=== PATIENT | male | born 1970 | race Caucasian/White ===

== ENCOUNTER → 2016-10-06 | Outpatient (CLI) | payer MEDICAID ==
[~2016-10-06] MED LIST: ALLOPURINOL100 MG PO; ASPIRIN 81MG TA81 MG PO; ATENOLOL25 MG PO; BACTRIM DS 8001 TAB PO; CIPRO 500MG TA500 MG PO; CYCLOBENZAPRINE10 M2 PO; ESCITALOPRAM 2020 MG PO; FLAGYL 500MG.500 MG PO; GEMFIBROZIL600 M1 PO; GEMFIBROZIL600 MG PO; INDOMETHACIN50 MG PO; KLONOPIN0.5 M1 PO; LEVOFLOXACIN 5500 MG PO; LOPID 600MG TA600 MG OR; LOPID600 MG OR; LORTAB 5/500 501 TAB PO; METFORMIN 500M500 M1 PO; METFORMIN500 MG PO; MIRALAX17 GM/PACK PO; MOTRIN600 M1 PO; NICOTINE PATCH;21 MG TD; PERCOCET 10 MG1 EACH PO; PHENERGAN25 M3 PO; PRAVACHOL40 MG PO; PREDNISONE 20MG20 MG PO; PREDNISONE 5MG.5 MG PO; PREDNISONE20 MG PO; PRILOSEC OTC20 MG PO; PRILOSEC20 M1 PO; PRILOSEC20 MG PO; TESSALON PERLE100 MG PO; TYLENOL W/CODEI1 TA2 PO; ZITHROMAX Z-PA250 M2 PO; ZOFRAN ODT4 MG PO
[2016-10-06 13:57] LABS: AMPHETAMINES/METAMPHETAMINES NEGATIVE ng/mL (<1000)
== END ==
LOC: LAB 13:36
PROVIDERS: Emergency Medicine
DX: Z79.899 Other long term (current) drug therapy (principal)

== ENCOUNTER 2017-04-25 17:14 | Emergency (ER) | payer MEDICARE, MEDICAID ==
[~2017-04-25] VITALS: Ht 182.9 cm; Wt 117.5 kg
[~2017-04-25 17:14] MED LIST changes: +FLONASE 50 MCG16 GM; +GABAPENTIN100 M1 PO; +LOSARTAN POTASS50 MG PO; +ONETOUCH LANCE1 EACH; +PROBIOTIC1 EAC5
[2017-04-25 17:51] LABS: HEMOGLOBIN 15.1 g/dL (14.1-18.0); LYMPH # 3.4 K/mm3 (0.7-4.5); LYMPH % 37.4 % (10-50)
--- OUTSIDE RECORDS SUMMARY | 2017-04-25 17:51 | External Medical Summary Rpt ---
Author Author , VITO PADRON Address Unknown Phone [email or web address] Care Team Providers Care Rural Mail Carrier Name Role Phone ALFARIS MOH, ALFARIS Unavailable Unavailable MOH WILL BRO, WILL Unavailable Unavailable BRO BEINEKE, BEINEKE Unavailable Unavailable ROGER, ROGER Unavailable Unavailable ROGER ALL, ROGER ALL Unavailable Unavailable DANNI AYAH, DANNI Unavailable Unavailable AYAH DANNI AYAH, DANNI Unavailable Unavailable AYAH DANA SHELIA, Unavailable Unavailable DANA SHELIA DANA SHELIA, Unavailable Unavailable DANA SHELIA SMITH, SMITH Unavailable Unavailable SMITH PHI, Unavailable Unavailable SMITH PHI Elias Sanchez MD, Unavailable Unavailable Elias Sharma MD, Unavailable Unavailable Feliciano Sharma MD FARHAD, FARHAD Unavailable Unavailable FARHAD JASMYNE, FARHAD Unavailable Unavailable JASMYNE [facility] Unavailable Unavailable INC, [facility] Unavailable Unavailable HOSPITAL P, [facility] P [facility], Unavailable Unavailable [facility] WHIPPLE, WHIPPLE Unavailable Unavailable JABARI NAN, JABARI Unavailable Unavailable NAN FRANCIS IMT, FRANCIS Unavailable Unavailable IMT [facility] Unavailable Unavailable [facility], [facility] Ninoska Bronson MD, Unavailable Unavailable Ninoska Bronson MD HARSHAD RANDALL, HARSHAD RANDALL Unavailable Unavailable HARSHAD RANDALL, HARSHAD RANDALL Unavailable Unavailable [facility] Unavailable Unavailable U[facility]ENT TRE[facility], [facility], Unavailable Unavailable [facility] Un[facility]available [facility], [facility], Unavailable Unavailable [facility], Unavailable Unavailable [facility] SRINIVAS TOD, SRINIVAS TOD Unavailable Unavailable ZENAIDA RANDALL, ZENAIDA RANDALL Unavailable Unavailable ZENAIDA RANDALL, ZENAIDA RANDALL Unavailable Unavailable [facility] Unavailable Unavailable [facility], [facility] Unavailable Unavailable [facility] Unavailable Unavailable EMERGENCY PH[facility], [facility] Javier Fields MD, Unavailable Unavailable Javier Fields MD [facility] # Unavailable Unavailable [id number], [facility] # [id number] Cornel Ramirez Unavailable Unavailable CARMINA PIEDRA, Cornel Ramirez III, MD Purpose Continuity of Care Document - 12-24-2012 through 2016 Problems Code Diagnosis DOS Provider Status C649 MALIGNANT 02-06-2017 [facility] UNS KIDNEY IMAGING ASS EXCEPT RENL PELVIS K5730 DIVERTICULO 02-06-2017 [place] SIS LG MEDICAL INTEST W/O IMAGING ASS PERF/ABSC W/O BLEED R590 LOCALIZED 02-06-2017 [facility] ENLARGED MEDICAL LYMPH NODES IMAGING ASS R911 SOLITARY 02-06-2017 [facility] PULMONARY MEDICAL NODULE IMAGING ASS E119 TYPE 2 02-03-2017 [facility] DIABETES PHYSICIANS MELLITUS GROUP WITHOUT COMPLICATIO NS I10 ESSENTIAL 02-03-2017 [facility] PRIMARY PHYSICIANS HYPERTENSIO GROUP N M10180 OTHER LONG 02-03-2017 [facility] TERM PHYSICIANS CURRENT GROUP DRUG THERAPY G4733 OBSTRUCTIVE 01-19-[address] [facility] SLEEP HOME APNEA ADULT MEDICAL PEDIATRIC EQUIPME J40 BRONCHITIS 10-06-2016 [facility] NOT PHYSICIANS SPECIFIED GROUP ACUTE OR CHRONIC C7989 SECONDARY 09-22-2016 [facility] NEOPLASM INC OTH SPECIFIED SITES E118 TYPE 2 09-22-2016 [facility] DIABETES PHYSICIANS MELLITUS GROUP W/UNS COMPLICATIO NS E871 HYPO-OSMOLA 09-22-2016 [facility] LITY AND PHYSICIANS HYPONATREMI GROUP A K8590 ACUTE 09-22-2016 [facility] PANCREATITI PHYSICIANS S WO GROUP NECROSIS/IN FECTION UNSPEC Z720 TOBACCO USE 09-22-2016 [facility] C641 MALIGNANT 09-21-2016 [facility] RT PHYSICIANS, KIDNEY PLLC EXCEPT RENAL PELVIS K8580 OTHER ACUTE 09-21-2016 [facility], PANCREATITI PLLC S WO NECROSIS/IN FECTION R1032 LEFT LOWER 09-21-2016 [place] QU[facility]RANT [facility] PAIN IMAGING ASS R109 UNSPECIFIED 09-21-2016 [place] ABDOMINAL MEDICAL PAIN IMAGING ASS R110 NAUSEA 09-21-2016 [facility] V56912 PERSONAL 09-21-2016 [place] HISTORY MEDICAL OTHER IMAGING ASS MALIGNANT NEOPLASM KIDNEY K5731 DIVERTICULO 09-03-2016 [facility] LG PHYSICIANS, INTEST W/O PLLC PERF/ABSC W/BLEED R1031 RIGHT LOWER 09-03-2016 [facility] PAIN [facility] G4713 RECURRENT 08-27-2016 [facility] HYPERSOMNIA PHYSICIANS GROUP J984 OTHER 08-27-2016 [facility] DISORDERS PHYSICIANS OF LUNG GROUP H527 UNSPECIFIED 07-28-2016 [facility] DISORDER OF REFRACTION Z23 ENCOUNTER 06-16-2016 [facility] FOR PHYSICIANS IMMUNIZATIO GROUP N M546 PAIN IN 05-13-2016 [facility] THORACIC [facility] SPINE IMAGING ASS Z905 ACQUIRED 05-13-2016 [place] ABSENCE OF MEDICAL KIDNEY IMAGING ASS G4730 SLEEP APNEA 04-30-2016 [facility] PHYSICIANS UNSPECIFIED GROUP M7711 LATERAL 04-30-2016 [facility] EPICONDYLIT PHYSICIANS IS RIGHT GROUP ELBOW E875 HYPERKALEMI 04-24-2016 [facility] A PHYSICIANS GROUP 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 [place] ADRENAL MEDICAL GLAND IMAGING ASS UNSPECIFIED 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 [place] 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 E785 HYPERLIPIDE 03-18-2016 [facility] KEYON PHYSICIANS UNSPECIFIED GROUP C7800 SECONDARY 02-18-2016 [place] MALIGNANT [facility] NEOPLASM OF HOSPITAL P UNSPECIFIED LUNG C7970 SECONDARY 02-18-2016 [facility] NEOPLASM HOSPITAL P UNS ADRENAL GLAND J302 OTHER 02-18-2016 [facility] SEASONAL PHYSICIANS ALLERGIC GROUP RHINITIS R918 OTHER 02-14-2016 [place] NONSPECIFIC MEDICAL ABNORMAL IMAGING ASS FINDING OF LUNG FIELD R739 HYPERGLYCEM 10-19-2015 [facility] IA PHYSICIANS UNSPECIFIED GROUP Z5111 ENCOUNTER 10-10-2015 [facility] P TIC CHEMOTHERAP Y Z5181 ENCOUNTER 08-22-2015 [facility] THERAPEUTIC [facility] DRUG LEVEL MONITORING N281 CYST OF 06-29-2015 [place] KIDNEY MEDICAL ACQUIRED IMAGING ASS K86310 SUPERVISOR PRE WAVE 06-14-2015 [facility] CURRENT USE PHYSICIANS OF OPIATE GROUP ANALGESIC 1890 MALIGNANT 06-04-[address] [place] [address] [facility] KIDNEY INC EXCEPT PELVIS V5811 ENCOUNTER 06-04-2015 [facility] ANTINEOPLAS [facility] TIC CHEMOTHERAP Y V5869 LONG-TERM 05-15-2015 [facility] (CURRENT) PHYSICIANS USE OF GROUP OTHER MEDICATIONS 76916 OVERWEIGHT 04-23-2015 [facility] PHYSICIANS GROUP 4019 UNSPECIFIED 04-23-2015 [facility] ESSENTIAL PHYSICIANS HYPERTENSIO GROUP N 94043 DIVERTICULI 04-23-2015 [facility] TIS OF PHYSICIANS COLON GROUP 23284 DIVERTICULI 04-11-2015 [facility] TIS OF PHYSICIANS COLON WITH GROUP HEMORRHAGE 75309 ABDOMINAL 04-11-2015 [facility] PAIN, LEFT PHYSICIANS LOWER GROUP QUADRANT 98574 ABDOMINAL 04-11-2015 [facility] PAIN, PHYSICIANS PERIUMBILIC GROUP 61689 ABDOMINAL 04-11-2015 [facility] PAIN OTHER PHYSICIANS SPECIFIED GROUP SITE V1052 PERSONAL 04-11-2015 [facility] HISTORY OF PHYSICIANS MALIGNANT GROUP NEOPLASM OF KIDNEY 2559 UNSPECIFIED 04-06-2015 [place] DISORDER MEDICAL OF ADRENAL IMAGING ASS GLANDS 5180 PULMONARY 04-06-2015 [facility] COLLAPSE [facility]ICAL IM[facility]ING ASS 36894 UNSPEC 04-06-2015 [place] VENTRAL MEDICAL LUIS W/O IMAGING ASS MENTION OBST/GANGRE N 7856 ENLARGEMENT 04-06-2015 [place] OF LYMPH MEDICAL NODES IMAGING ASS 53327 ABDOMINAL 04-06-2015 [facility] PAIN, [facility] UNSPECIFIED INC SITE 71405 OTHER 04-06-2015 [place] NONSPECIFIC MEDICAL ABNORMAL IMAGING ASS FINDING OF LUNG FIELD 2724 OTHER AND 03-23-2015 [facility] UNSPECIFIED PHYSICIANS GROUP HYPERLIPIDE KEYON V4573 ACQUIRED 02-28-2015 [place] ABSENCE OF MEDICAL KIDNEY IMAGING ASS 2357 NEOPLASM 02-07-2015 [facility] P [facility]ACH BRONCHUS&STEFANI NG 7231 CERVICALGIA 01-25-2015 [facility] 7245 UNSPECIFIED 01-25-2015 [place] BACKACHE MEDICAL IMAGING ASS 22349 DIVERTICULO 01-24-2015 [facility] COL[facility] URGENT T[facility]AT 5770 ACUTE 01-24-2015 [facility] PANCREATITI [facility] URGENT TREAT 7242 LUMBAGO 01-24-2015 [facility] URGENT TREAT 83220 LEUKOCYTOSI 01-10-2015 [facility] S PHYSICIANS UNSPECIFIED GROUP 4011 ESSENTIAL 01-10-2015 [facility] HYPERTENSIO PHYSICIANS N, BENIGN GROUP 30897 COR 01-10-2015 [facility] ATHEROSLERO PHYSICIANS UNSPEC GROUP TYPE VESSEL [place]/NONA T 7880 RENAL COLIC 01-09-2015 [facility] 7881 DYSURIA 01-09-2015 [facility] 79962 SOLITARY 01-09-2015 [facility] PULMONARY [facility] NODULE INC 4739 UNSPECIFIED 07-18-2014 [facility] SIN[facility] N EMERGENCY PHYS 47417 PAIN IN 07-18-2014 [facility] JOINT, N EMERGENCY ANKLE AND PHYS FOOT 25834 TENOSYNOVIT 07-18-2014 [facility] IS OF FOOT N EMERGENCY AND ANKLE PHYS 5990 URINARY 06-16-2014 [facility] TRACT N EMERGENCY INFECTION PHYS SITE NOT SPECIFIED 7804 DIZZINESS 06-16-2014 [facility] AND N EMERGENCY GIDDINESS PHYS 50738 GENERALIZED 05-06-2014 HARSHAD RANDALL ANXIETY DISORDER 7248 OTHER 03-23-2014 [facility]SH[facility] RANDALL SYMPTOMS REFERABLE TO BACK 2374 NEOPLASM 02-21-2014 [facility] V OTH&UNSPEC ENDOCRN GLANDS 7840 HEADACHE 02-21-2014 [facility] 60369 DIARRHEA 02-21-2014 HARSH[facility] RANDALL 2359 NEOPLASM 02-16-2014 [facility] BEHAVIOR INC OTH&UNSPEC RESP ORGN 5932 ACQUIRED 02-06-2014 [facility] CYST [facility] SHE[facility]IA KIDNEY 5939 UNSPECIFIED 02-06-2014 [facility] DISORDER SHELIA OF KIDNEY AND URETER 462 ACUTE 02-01-2014 ZENA[facility] RANDALL PHARYNGITIS 272.1 272.1 PURE 10-08-2013 [place] HYPERGLYCER [facility] IDEMIA Hospital 305.1 305.1 10-08-2013 [place] TOBACCO USE [facility] DISORDER Hospital 577.0 577.0 ACUTE 10-08-2013 [facility] PANCREATITI [facility] S V10.53 V10.53 PER 10-08-2013 [facility] MALIGN [facility], [facility] RENAL PELVIS V16.9 V16.9 10-08[facility] CY NOS V17.3 V17.3 FAM 10-08-2013 [facility] HEART DIS Hospital V18.0 V18.0 FAM 10-08-2013 [facility] MELLITUS [facility] 274.01 274.01 05-10-2013 [place] ACUTE GOUTY [facility] ARTHROPATHY 577.1 577.1 05-10-2013 [place] CHRONIC [facility] PANCREATITI [facility] S 455.0 455.0 INT 02-10-2013 [place] HEMORRHOID [facility] W/O COMPL Hospital 562.10 562.10 02-10-[address] [place] [address] [facility] COLON [facility] (W/O MENT OF HEMORRHAGE) 569.3 569.3 02-10-2013 [place] RECTAL & [facility] HEMORRHAGE 789.00 789.00 02-10-2013 [place] ABDOMINAL [facility], [facility] UNSPECIFIED SITE 272.4 272.4 01-15-2013 [place] HYPERLIPIDE [facility] KEYON NEC/NOS Hospital 560.1 560.1 01-15-2013 [place] PARALYTIC [facility] ILEUS [facility] V45.73 V45.73 01-15-2013 [place] ACQRD [facility] ABSENCE OF Hospital KIDNEY 789.06 789.06 12-24-2012 [place] ABDOMINAL [facility] PAIN, [facility] EPIGASTRIC C64.9 MALIGNANT NEOPLASM OF UNSP KIDNEY, EXCEPT RENAL PELVIS E11.9 TYPE 2 DIABETES MELLITUS WITHOUT COMPLICATIO NS E27.9 DISORDER OF ADRENAL GLAND, UNSPECIFIED E87.1 HYPO-OSMOLA LITY AND HYPONATREMI A E87.5 HYPERKALEMI A J32.9 CHRONIC SINUSITIS, UNSPECIFIED K57.90 DVRTCLOS OF INTEST, PART UNSP, W/O PERF OR ABSCESS W/O BLEED K57.92 DVTRCLI OF INTEST, PART UNSP, W/O PERF OR ABSCESS W/O BLEED K85.90 ACUTE PANCREATITI S WITHOUT NECROSIS OR INFECTION, UNSP M54.6 PAIN IN THORACIC SPINE M77.50 OTHER ENTHESOPATH Y OF UNSPECIFIED FOOT N39.0 URINARY TRACT INFECTION, SITE NOT SPECIFIED R10.9 UNSPECIFIED ABDOMINAL PAIN Z79.899 OTHER LONG-TERM (CURRENT) DRUG THERAPY Allergies, Adverse Reactions, Alerts Type Drug Allergy Adverse Reaction to Substance Substance Reaction Severity Penicillin [id number]/THROAT Severe Clinical Alert Notifications Alert Diabetes: no lipid panel in the last 365 days Diabetes: no urine protein screening in the last 365 days Member has >/= 3 hosp admit & >/= 1 ED visit in 365 days Medications Na ND Rx Da Fi Fi Am Da Di Ph RX Ph St me C No te ll ll ou ys ag ar # ys at rm s nt no ma ic us Or Da si cy ia de te s n re d ES 68 05 06 30 30 00 [place] Ac CI 64 -2 -3 .0 00 L- ti TA 50 5- 0- 00 07 MA ve LO 52 20 20 48 RT AK 05 17 17 95 AM 4 46 PH AR 20 MA CY MG #5 TA 91 BL ET FL 60 05 06 16 30 00 WA Ac UT 43 -2 -3 .0 00 L- ti IC 20 8- 0- 00 07 MA ve 26 20 20 48 RT ON 41 17 17 95 E 5 47 PH AK AR OP MA CY 50 #5 MC 91 G SP RA Y ME 68 05 06 60 30 00 CO Ac TF 64 -2 -3 .0 00 L- ti OR 50 8- 0- 00 07 MA ve IA 54 20 20 48 RT N 55 17 17 95 HC 9 49 PH L AR 1, MA 00 CY 0 MG #5 91 TA BL ET AT 00 05 30 30 00 CO Ac EN 78 -2 -3 .0 00 L- ti OL 11 8- 0- 00 07 MA ve OL 07 20 20 48 RT 80 17 17 95 25 1 44 PH AR MG MA CY TA BL #5 ET 91 CY 68 05 03 13 30 00 CO Ac CL 64 -2 -3 .0 00 L- ti OB 50 8- 0- 00 07 MA ve EN 51 20 20 48 RT ZA 89 17 17 95 AK 0 45 PH IN AR E MA 10 CY MG #5 91 TA BL ET AL 16 01 17 30 30 00 CO Ac LO 71 -2 -3 .0 00 L- ti PU 40 8- 0- 00 07 MA ve RI 04 20 20 48 RT NO 10 17 17 95 L 7 43 PH 10 AR 0 MA MG CY TA #5 BL 91 ET LO 68 05 30 30 00 CO Ac SA 64 -2 -2 .0 00 L- ti RT 50 3- 3- 00 07 MA ve AN 40 20 20 48 RT 75 17 17 95 PO 4 48 PH TA AR SS MA IU CY M 25 #5 91 MG TA B OM 60 05 30 30 00 CO Ac EP 50 -2 -2 .0 00 L- ti RA 53 3- 3- 00 07 MA ve ZO 95 20 20 48 RT LE 20 17 [address] AR MA 20 CY MG #5 91 CA PS UL E GA 53 05 90 30 00 CO Ac BA 74 -2 -2 .0 00 L- ti PE 60 3- 3- 00 07 MA ve NT 10 20 20 48 RT IN 10 17 17 95 5 52 PH 10 AR 0 MA MG CY CA #5 PS 91 UL E OX 00 05 90 30 00 CO Ac YC 40 -2 -2 .0 00 L- ti OD 60 3- 3- 00 02 MA ve ON 52 20 20 24 RT E- 30 17 17 04 AC 1 42 PH ET AR AM MA IN CY OP HE #5 N 91 10 -3 25 AK 54 05 30 30 00 WA Ac AV 45 -1 -1 .0 00 L- ti 80 5- 6- 00 07 MA ve TA 92 20 20 45 RT TI 51 17 17 53 N 0 95 PH SO AR DI MA UM CY 40 #5 91 MG TA B ES 68 04 03 13 30 00 WA Ac CI 64 -2 -0 .0 00 L- ti TA 50 8- 2- 00 07 MA ve LO 52 20 20 41 RT AK 05 17 17 81 AM 4 82 PH AR 20 MA CY MG #5 TA 91 BL ET LI 54 04 03 13 30 00 WA Ac SI 45 -2 -0 .0 00 L- ti NO 80 8- 2- 00 07 MA ve AK 99 20 20 47 RT IL 91 17 17 87 0 87 PH 2. AR 5 MA MG CY TA #5 BL 91 ET AT 00 01 17 30 30 00 WA Ac EN 78 -0 -0 .0 00 L- ti OL 11 1- 2- 00 07 MA ve OL 07 20 20 48 RT 80 17 17 54 25 1 53 PH AR MG MA CY TA BL #5 ET 91 AL 16 05 03 13 30 00 WA Ac LO 71 -0 -0 .0 00 L- ti PU 40 1- 2- 00 07 MA ve RI 04 20 20 48 RT NO 10 17 17 54 L 7 55 PH 10 AR 0 MA MG CY TA #5 BL 91 ET ME 68 05 60 30 00 WA Ac TF 64 -0 -0 .0 00 L- ti OR 50 1- 2- 00 07 MA ve IA 54 20 20 48 RT N 55 17 17 54 HC 9 56 PH L AR 1, MA 00 CY 0 MG #5 91 TA BL ET CY 68 05 30 30 00 WA Ac CL 64 -0 -0 .0 00 L- ti OB 50 1- 2- 00 07 MA ve EN 51 20 20 48 RT ZA 89 17 17 54 AK 0 57 PH IN AR E MA 10 CY MG #5 91 TA BL ET FL 60 05 16 30 00 WA Ac UT 43 -0 -0 .0 00 L- ti IC 20 1- 2- 00 07 MA ve 26 20 20 48 RT ON 41 17 17 54 E 5 88 PH AK AR OP MA CY 50 #5 MC 91 G SP RA Y LO 68 04 30 30 00 WA Ac SA 64 -2 -2 .0 00 L- ti RT 50 4- 6- 00 07 MA ve AN 40 20 20 48 RT 75 17 17 41 PO 4 31 PH TA AR SS MA IU CY M 25 #5 91 MG TA B OX 00 04 05 90 30 00 WA Ac YC 40 -2 -2 .0 00 L- ti OD 60 4- 6- 00 02 MA ve ON 52 20 20 24 RT E- 30 17 17 00 AC 1 36 PH ET AR AM MA IN CY OP HE #5 N 91 10 -3 25 AK 54 04 05 30 30 00 WA Ac AV 45 -1 -1 .0 00 L- ti 80 0- 2- 00 07 MA ve TA 92 20 20 45 RT TI 51 17 17 53 N 0 95 PH SO AR DI MA UM CY 40 #5 91 MG TA B FL 60 03 04 16 30 00 WA Ac UT 43 -2 -2 .0 00 L- ti IC 20 7- 8- 00 07 MA ve 26 20 20 45 RT ON 41 17 17 53 E 5 94 PH AK AR OP MA CY 50 #5 MC 91 G SP RA Y LI 68 03 04 30 30 00 WA Ac SI 18 -2 -2 .0 00 L- ti NO 00 7- 8- 00 07 MA ve AK 51 20 20 47 RT IL 20 17 17 87 1 87 PH 2. AR 5 MA MG CY TA #5 BL 91 ET OX 00 03 04 90 30 00 WA Ac YC 40 -2 -2 .0 00 L- ti OD 60 8- 8- 00 02 MA ve ON 52 20 20 23 RT E- 30 17 17 96 AC 1 86 PH ET AR AM MA IN CY OP HE #5 N 91 10 -3 25 ME 68 03 04 60 30 00 WA Ac TF 64 -2 -2 .0 00 L- ti OR 50 7- 8- 00 07 MA ve IA 54 20 20 47 RT N 55 17 17 87 HC 9 55 PH L AR 1, MA 00 CY 0 MG #5 91 TA BL ET OM 60 03 04 30 30 00 WA Ac EP 50 -2 -2 .0 00 L- ti RA 53 7- 8- 00 07 MA ve ZO 95 20 20 47 RT LE 20 17 17 [address] AR MA 20 CY MG #5 91 CA PS UL E AL 16 03 04 30 30 00 WA Ac LO 71 -2 -2 .0 00 L- ti PU 40 7- 8- 00 07 MA ve RI 04 20 20 47 RT NO 10 17 17 87 L 7 57 PH 10 AR 0 MA MG CY TA #5 BL 91 ET ES 68 03 04 30 30 00 WA Ac CI 64 -2 -2 .0 00 L- ti TA 50 7- 8- 00 07 MA ve LO 52 20 20 47 RT AK 05 17 17 87 AM 4 72 PH AR 20 MA CY MG #5 TA 91 BL ET AT 00 03 04 30 30 00 WA Ac EN 78 -2 -2 .0 00 L- ti OL 11 8 07 MA ve OL 07 20 20 47 RT 80 17 17 87 25 1 73 PH AR MG MA CY TA BL #5 ET 91 CY 68 03 04 30 30 00 WA Ac CL 64 -2 -2 .0 00 L- ti OB 50 8- 8- 00 07 MA ve EN 51 20 20 47 RT ZA 89 17 17 90 AK 0 45 PH IN AR E MA 10 CY MG #5 91 TA BL ET AK 54 03 30 30 00 WA Ac AV 45 -1 -1 .0 00 L- ti 80 4- 4- 00 07 MA ve TA 92 20 20 46 RT TI 51 17 17 08 N 0 72 PH SO AR DI MA UM CY 40 #5 91 MG TA B ME 68 02 03 60 30 00 WA Ac TF 64 -2 -3 .0 00 L- ti OR 50 4- 1- 00 07 MA ve IA 54 20 20 47 RT N 55 17 17 29 HC 9 52 PH L AR 1, MA 00 CY 0 MG #5 91 TA BL ET ON 53 03 03 50 25 00 WA Ac ET 88 -0 -3 .0 00 L- ti OU 50 1- 1- 00 08 MA ve CH 24 20 20 83 RT 45 17 17 71 UL 0 53 PH TR AR A MA TE CY ST #5 ST 91 RI PS ES 68 02 30 30 00 WA Ac CI 64 -2 -3 .0 00 L- ti TA 50 4- 1- 00 07 MA ve LO 52 20 20 46 RT AK 05 17 17 08 AM 4 69 PH AR 20 MA CY MG #5 TA 91 BL ET AL 16 02 30 30 00 WA Ac LO 71 -2 -3 .0 00 L- ti PU 40 4- 1- 00 07 MA ve RI 04 20 20 46 RT NO 10 17 17 08 L 7 66 PH 10 AR 0 MA MG CY TA #5 BL 91 ET OM 60 02 30 30 00 WA Ac EP 50 -2 -3 .0 00 L- ti RA 53 4- 1- 00 07 MA ve ZO 95 20 20 46 RT LE 20 17 17 [address] AR MA 20 CY MG #5 91 CA PS UL E AT 00 02 03 30 30 00 WA Ac EN 78 -2 -3 .0 00 L- ti OL 11 4- 1- 00 07 MA ve OL 07 20 20 46 RT 80 17 17 08 25 1 67 PH AR MG MA CY TA BL #5 ET 91 OX 00 02 03 90 30 00 WA Ac YC 40 -2 -3 .0 00 L- ti OD 60 4- 1- 00 02 MA ve ON 52 20 20 23 RT E- 30 17 17 92 AC 1 80 PH ET AR AM MA IN CY OP HE #5 N 91 10 -3 25 ON 53 02 03 10 31 00 WA Ac ET 88 -2 -3 0. 00 L- ti OU 50 4- 1- 00 08 MA ve CH 13 20 20 0 83 RT 61 17 17 79 DE 0 91 PH LI AR CA MA CY 33 G #5 LA 91 NC ET S CY 68 02 03 30 30 00 WA Ac CL 64 -2 -3 .0 00 L- ti OB 50 7- 1- 00 07 MA ve EN 51 20 20 47 RT ZA 89 17 17 32 AK 0 32 PH IN AR E MA 10 CY MG #5 91 TA BL ET AK 00 02 03 30 30 00 WA Ac AV 09 -0 -1 .0 00 L- ti 37 6- 0- 00 07 MA ve TA 20 20 20 46 RT TI 29 17 17 08 N 8 72 PH SO AR DI MA UM CY 40 #5 91 MG TA B ON 53 02 03 50 25 00 WA Ac ET 88 -0 -1 .0 00 L- ti OU 50 6- 0- 00 08 MA ve CH 24 20 20 83 RT 45 17 17 71 UL 0 53 PH TR AR A MA TE CY ST #5 ST 91 RI PS FL 60 02 03 16 30 00 WA Ac UT 43 -0 -1 .0 00 L- ti IC 20 6- 0- 00 07 MA ve 26 20 20 45 RT ON 41 17 17 53 E 5 94 PH AK AR OP MA CY 50 #5 MC 91 G SP RA Y CY 68 01 02 30 30 00 WA Ac CL 64 -2 -2 .0 00 L- ti OB 50 3- 4- 00 07 MA ve EN 51 20 20 46 RT ZA 89 17 17 08 AK 0 68 PH IN AR E MA 10 CY MG #5 91 TA BL ET OM 60 01 02 30 30 00 WA Ac EP 50 -2 -2 .0 00 L- ti RA 53 3- 4- 00 07 MA ve ZO 95 20 20 46 RT LE 20 17 17 [address] AR MA 20 CY MG #5 91 CA PS UL E AL 16 02 30 30 00 WA Ac LO 71 -2 -2 .0 00 L- ti PU 40 3- 4- 00 07 MA ve RI 04 20 20 46 RT NO 10 17 17 08 L 7 66 PH 10 AR 0 MA MG CY TA #5 BL 91 ET AT 00 02 30 30 00 WA Ac EN 78 -2 -2 .0 00 L- ti OL 11 3- 4- 00 07 MA ve OL 07 20 20 46 RT 80 17 17 08 25 1 67 PH AR MG MA CY TA BL #5 ET 91 ES 68 01 02 30 30 00 CO Ac CI 64 -2 -2 .0 00 L- ti TA 50 3- 4- 00 07 MA ve LO 52 20 20 46 RT AK 05 17 17 08 AM 4 69 PH AR 20 MA CY MG #5 TA 91 BL ET ME 23 01 02 60 30 00 WA Ac TF 15 -2 -2 .0 00 L- ti OR 50 3- 4- 00 07 MA ve IA 10 20 20 46 RT N 41 17 17 63 HC 0 10 PH L AR 1, MA 00 CY 0 MG #5 91 TA BL ET AZ 59 01 02 6. 5 00 CO Ac IT 76 -2 -2 00 00 L- ti HR 23 3- 4- 0 07 MA ve OM 06 20 20 46 RT YC 00 17 17 63 IN 1 11 PH AR 25 MA 0 CY MG #5 TA 91 BL ET OX 00 02 90 30 00 CO Ac YC 40 -2 -2 .0 00 L- ti OD 60 4- 4- 00 02 MA ve ON 52 20 20 23 RT E- 30 17 17 88 AC 1 05 PH ET AR AM MA IN CY OP HE #5 N 91 10 -3 25 AL 16 08 14 30 30 00 WA Ac LO 71 -2 -2 .0 00 L- ti PU 40 7- 7- 00 07 MA ve RI 04 20 20 46 RT NO 10 16 17 08 L 7 66 PH 10 AR 0 MA MG CY TA #5 BL 91 ET AT 00 12 30 30 00 CO Ac EN 78 -2 -2 .0 00 L- ti OL 11 7- 7- 00 07 MA ve OL 07 20 20 46 RT 80 16 17 08 25 1 67 PH AR MG MA CY TA BL #5 ET 91 CY 68 12 30 30 00 WA Ac CL 64 -2 -2 .0 00 L- ti OB 50 7- 7- 00 07 MA ve EN 45 20 20 46 RT ZA 09 16 17 08 AK 0 68 PH IN AR E MA 10 CY MG #5 91 TA BL ET ES 68 12 30 30 00 WA Ac CI 64 -2 -2 .0 00 L- ti TA 50 7- 7- 00 07 MA ve LO 52 20 20 46 RT AK 05 16 17 08 AM 4 69 PH AR 20 MA CY MG #5 TA 91 BL ET OM 60 12 30 30 00 WA Ac EP 50 -2 -2 .0 00 L- ti RA 53 7 7- 00 07 MA ve ZO 95 20 20 46 RT LE 20 16 17 [address] AR MA 20 CY MG #5 91 CA PS UL E OX 00 12 90 30 00 WA Ac YC 40 -2 -2 .0 00 L- ti OD 60 7- 7- 00 02 MA ve ON 52 20 20 23 RT E- 30 16 17 84 AC 1 54 PH ET AR AM MA IN CY OP HE #5 N 91 10 -3 25 AK 54 12 30 30 00 WA Ac AV 45 -2 -2 .0 00 L- ti 80 7- 7- 00 07 MA ve TA 92 20 20 46 RT TI 51 16 17 08 N 0 72 PH SO AR DI MA UM CY 40 #5 91 MG TA B ME 68 12 01 60 30 00 WA Ac TF 38 -2 -2 .0 00 L- ti OR 20 7- 7- 00 07 MA ve IA 75 20 20 46 RT N 81 16 17 08 HC 0 79 PH L AR 50 MA 0 CY MG #5 TA 91 BL ET FL 60 12 01 16 30 00 WA Ac UT 43 -2 -2 .0 00 L- ti IC 20 6- 7- 00 07 MA ve 26 20 20 45 RT ON 41 16 17 56 E 5 83 PH AK AR OP MA CY 50 #5 MC 91 G SP RA Y OX 00 02 02 0 90 30 WA 22 GA Ac YC 40 -0 -0 0. L- 33 IN ti OD 60 6- 6- 00 MA 92 EY ve ON 52 20 20 0 RT 1 E- 30 16 16 IA AC 1 PH CH ET AR AE AM MA L IN CY S OP # HE N 10 10 05 -3 91 25 AK 54 01 02 2 30 30 WA 73 GA Ac AV 45 -0 -0 0. L- 94 IN ti 80 6- 5- 00 MA 01 EY ve TA 92 20 20 0 RT 6 TI 51 16 16 IA N 0 PH CH SO AR AE DI MA L UM CY S # 40 10 MG 05 91 TA B CY 68 02 02 0 [address] Ac CL 64 -0 -0 0. L- 99 ON ti OB 50 5- 5- 00 MA 84 E ve EN 45 20 20 0 RT 3 DI ZA 09 16 16 XI AK 0 PH E IN AR D E MA 10 CY # MG 10 TA 05 BL 91 ET OM 60 01 02 2 30 30 WA 73 GA Ac EP 50 -0 -0 0. L- 94 IN ti RA 53 6- 5- 00 MA 01 EY ve ZO 95 20 20 0 RT 3 LE 20 16 16 IA [address] AR AE MA L 20 CY S # MG 10 CA 05 PS 91 UL E ES 68 01 02 2 30 30 WA 73 GA Ac CI 64 -0 -0 0. L- 94 IN ti TA 50 6- 5- 00 MA 01 EY ve LO 44 20 20 0 RT 4 AK 77 16 16 IA AM 0 PH CH AR AE 20 MA L CY S MG # TA 10 BL 05 ET 91 GE 31 01 02 2 60 30 WA 73 GA Ac MF 72 -0 -0 0. L- 94 IN ti IB 20 6- 5- 00 MA 01 EY ve RO 22 20 20 0 RT 5 ZI 50 16 16 IA L 5 PH CH 60 AR AE 0 MA L MG CY S # TA BL 10 ET 05 91 ON 53 01 02 0 50 25 WA 88 GA Ac ET 88 -1 -0 0. L- 32 IN ti OU 50 5- 5- 00 MA 98 EY ve CH 24 20 20 0 RT 1 45 16 16 IA UL 0 PH CH TR AR AE A MA L TE CY S ST # ST 10 RI 05 PS 91 AL 16 01 02 2 30 30 WA 73 GA Ac LO 71 -0 -0 0. L- 94 IN ti PU 40 6- 5- 00 MA 01 EY ve RI 04 20 20 0 RT 2 NO 10 16 16 IA L 7 PH CH 10 AR AE 0 MA L MG CY S # TA BL 10 ET 05 91 AT 51 01 02 2 30 30 WA 73 GA Ac EN 07 -0 -0 0. L- 94 IN ti OL 90 6- 5- 00 MA 01 EY ve OL 75 20 20 0 RT 7 96 16 16 IA 25 3 PH CH AR AE MG MA L CY S TA # BL ET 10 05 91 PA 51 01 1 No NT 07 -2 OP 90 4- Lo RA 05 20 ng ZO 12 14 er LE 0 Ac SO ti D ve DR 40 MG TA B AK 00 01 1 No OT 00 -2 ON 80 3- Lo IX 92 20 ng 35 14 er IV 5 Ac 40 ti ve MG AL SO 00 01 1 No DI 40 -2 UM 97 3- Lo 98 20 ng CH 43 14 er LO 7 RI Ac DE ti ve 0. 9% SO STEFANI TI ON KE 00 2 No TO 40 -2 RO 93 3- Lo LA 79 20 ng C 50 14 er 30 1 Ac MG ti /M ve L AL Ge 00 01 2 No mf 90 -2 ib 45 3- Lo ro 37 20 ng zi 96 14 er l 1 60 Ac 0M ti G ve Ta bl et AK 00 01 2 No ED 05 -2 NI 40 3- Lo SO 01 20 ng NE 82 14 er 0 20 Ac ti MG ve TA BL ET ON 00 01 2 No DA 64 -2 NS 16 3- Lo ET 08 20 ng RO 02 14 er N 5 HC Ac L ti 4 ve MG /2 ML AL Ge 00 01 2 No mf 90 -2 ib 45 3- Lo ro 37 20 ng zi 96 14 er l 1 60 Ac 0M ti G ve Ta bl et Sa 63 01 1 No li 80 -2 ne 70 2- Lo 10 20 ng Fl 07 14 er us 5 h Ac 10 ti ML ve Sy ri ng e Mo 00 01 0 No rp 40 -2 hi 91 2- Lo ne 26 20 ng 06 14 er 8M 9 G/ Ac Ml ti ve Sy ri ng e Mo 00 01 3 No rp 40 -2 hi 91 2- Lo ne 76 20 ng 23 14 er 2M 0 G/ Ac Ml ti ve Sy ri ng e Mo 00 01 3 No rp 40 -2 hi 91 2- Lo ne 25 20 ng 83 14 er 4M 0 G/ Ac Ml ti ve Sy ri ng e SO 00 01 0 No DI 40 -2 UM 97 2- Lo 98 20 ng CH 30 14 er LO 9 RI Ac DE ti ve 0. 9% SO STEFANI TI ON DE 00 01 3 No XT 40 -2 RO 97 2- Lo SE 92 20 ng 60 14 er 5% 9 -0 Ac .4 ti 5% ve NA CL IV SO LN Sa 63 01 1 No li 80 -2 ne 70 2- Lo 10 20 ng Fl 07 14 er us 5 h Ac 10 ti ML ve Sy ri ng e Mo 00 01 0 No rp 40 -2 hi 91 2- Lo ne 26 20 ng 06 14 er 8M 9 G/ Ac Ml ti ve Sy ri ng e ON 00 01 0 No DA 64 -2 NS 16 2- Lo ET 08 20 ng RO 02 14 er N 5 HC Ac L ti 4 ve MG /2 ML AL HY [address] 40 -2 OM 91 2- Lo OR 31 20 ng PH 23 14 er ON 0 E Ac 2 ti MG ve /M L CA RP UJ CT Mo 00 01 3 No rp 40 -2 hi 91 2- Lo ne 76 20 ng 23 14 er 2M 0 G/ Ac Ml ti ve Sy ri ng e Mo 00 01 3 No rp 40 -2 hi 91 2- Lo ne 25 20 ng 83 14 er 4M 0 G/ Ac Ml ti ve Sy ri ng e NI 00 01 3 No CO 06 -2 TI 75 2- Lo NE 12 20 ng 61 14 er 21 4 Ac MG ti /2 ve 4H R PA TC H PA 51 01 1 No NT 07 -2 OP 90 2- Lo RA 05 20 ng ZO 12 14 er LE 0 Ac SO ti D ve DR 40 MG TA B AK 00 08 0 No ED 05 -2 NI 40 7- Lo SO 01 20 ng NE 82 13 er 0 20 Ac ti MG ve TA BL ET HY [address] 40 -2 OC 60 7- Lo OD 36 20 ng ON 56 13 er -A 2 CE Ac TA ti IA ve NO PH EN 5- 32 5 Sa 63 05 0 No li 80 -3 ne 70 0- Lo 10 20 ng Fl 07 13 er us 5 h Ac 10 ti ML ve Sy ri ng e Sa 63 05 0 No li 80 -3 ne 70 0- Lo 10 20 ng Fl 07 13 er us 5 h Ac 10 ti ML ve Sy ri ng e LO 00 05 1 No VE 07 -0 NO 50 2- Lo X 62 20 ng 40 04 13 er 1 MG Ac /0 ti .4 ve ML SY RI NG E DE 00 05 2 No XT 40 -0 RO 97 2- Lo SE 94 20 ng 10 13 er 5% 9 -0 Ac .9 ti % ve NA CL IV SO LN Sa 63 05 1 No li 80 -0 ne 70 1- Lo 10 20 ng Fl 07 13 er us 5 h Ac 10 ti ML ve Sy ri ng e Mo 00 05 0 No rp 40 -0 hi 91 1- Lo ne 25 20 ng 83 13 er 4M 0 G/ Ac Ml ti ve Sy ri ng e GA [address] 27 -0 RO 00 1- Lo GR 44 20 ng AF 53 13 er IN 5 Ac 66 ti -1 ve 0 SO STEFANI TI ON Mo 00 05 0 No rp 40 -0 hi 91 1- Lo ne 25 20 ng 83 13 er 4M 0 G/ Ac Ml ti ve Sy ri ng e LO 00 05 0 No VE 07 -0 NO 50 1- Lo X 62 20 ng 40 04 13 er 1 MG Ac /0 ti .4 ve ML SY RI NG E Mo 00 05 3 No rp 40 -0 hi 91 1- Lo ne 25 20 ng 83 13 er 4M 0 G/ Ac Ml ti ve Sy ri ng e ON 00 05 3 No DA 64 -0 NS 16 1- Lo ET 08 20 ng RO 02 13 er N 5 HC Ac L ti 4 ve MG /2 ML AL Ni 00 05 3 No co 06 -0 ti 70 1- Lo ne 81 20 ng 02 13 er 21 1 MG Ac /2 ti 4H ve R Pa tc h AK 00 05 3 No OT 00 -0 ON 80 1- Lo IX 84 20 ng [address] 9 Ac 40 ti ve MG TA BL ET Ge 00 05 3 No mf 90 -0 ib 45 1- Lo ro 37 20 ng zi 96 13 er l 1 60 Ac 0M ti G ve Ta bl et Sa 63 05 1 No li 80 -0 ne 70 1- Lo 10 20 ng Fl 07 13 er us 5 h Ac 10 ti ML ve Sy ri ng e Mo 00 05 0 No rp 40 -0 hi 91 1- Lo ne 25 20 ng 83 13 er 4M 0 G/ Ac Ml ti ve Sy ri ng e Mo 00 05 0 No rp 40 -0 hi 91 1- Lo ne 25 20 ng 83 13 er 4M 0 G/ Ac Ml ti ve Sy ri ng e Mo 00 05 3 No rp 40 -0 hi 91 1- Lo ne 25 20 ng 83 13 er 4M 0 G/ Ac Ml ti ve Sy ri ng e Ni 00 05 3 No co 06 -0 ti 70 1- Lo ne 81 20 ng 02 13 er 21 1 MG Ac /2 ti 4H ve R Pa tc h Ge 00 05 3 No mf 90 -0 ib 45 1- Lo ro 37 20 ng zi 96 13 er l 1 60 Ac 0M ti G ve Ta bl et SO 00 05 0 No DI 40 -0 UM 97 1- Lo 98 20 ng CH 30 13 er LO 9 RI Ac DE ti ve 0. 9% SO STEFANI TI ON Sa 63 04 0 No li 80 -1 ne 70 2- Lo 10 20 ng Fl 07 13 er us 5 h Ac 10 ti ML ve Sy ri ng e KE 00 04 0 No TO 40 -1 RO 93 2- Lo LA 79 20 ng C 50 13 er 30 1 Ac MG ti /M ve L AL ON 00 04 0 No DA 64 -1 NS 16 2- Lo ET 08 20 ng RO 02 13 er N 5 HC Ac L ti 4 ve MG /2 ML AL AK 00 04 0 No OT 00 -1 ON 80 2- Lo IX 92 20 ng 35 13 er IV 5 Ac 40 ti ve MG AL SO 00 04 0 No DI 40 -1 UM 97 2- Lo 98 20 ng CH 43 13 er LO 7 RI Ac DE ti ve 0. 9% SO STEFANI TI ON Immunization Name Date Rout CVX Reac Dose Comm Prov Is Faci e tion ent ider Refu lity Give sed n IIV 10-0 GAIN No [facility] ADJU 3-20 EY PHYS VANT 16 JASMYNE ICIA ED NS VACC GROU INE P FOR INTR AMUS CULA R USE IIV3 10-3 141 GAIN No [facility] 0-20 EY PHYS VACC 15 JASMYNE ICIA INE NS SPLI GROU T P VIRU S 0.5 ML DOSA GE IM USE Vital Signs 10-08-2013 12:40 Name Value Interpretat Reference Comment ion Range Body 98.4 [degF] Temperature BP 98 mm[Hg] Diastolic BP Systolic 159 mm[Hg] Heart 65 /min Rate/Pulse Respiratory 18 /min Rate 10-08-2013 11:41 Name Value Interpretat Reference Comment ion Range O2% 98 % 10-05-2013 14:08 Name Value Interpretat Reference Comment ion Range Height 182.88 cm Weight 103.931 kg Measured 10-05-2013 10:39 Name Value Interpretat Reference Comment ion Range Body 98.0 [degF] Temperature BP 96 mm[Hg] Diastolic BP Systolic 143 mm[Hg] Heart 89 /min Rate/Pulse O2% 97 % Respiratory 20 /min Rate Weight 0 [oz_av] Measured 09-22-2013 08:26 Name Value Interpretat Reference Comment ion Range Body 98.1 [degF] Temperature BP 79 mm[Hg] Diastolic BP Systolic 129 mm[Hg] Heart 88 /min Rate/Pulse O2% 97 % Respiratory 21 /min Rate 09-22-2013 08:24 Name Value Interpretat Reference Comment ion Range Body 98.1 [degF] Temperature BP 79 mm[Hg] Diastolic BP Systolic 129 mm[Hg] Heart 88 /min Rate/Pulse O2% 97 % Respiratory 21 /min Rate 07-19-2013 17:04 Name Value Interpretat Reference Comment ion Range Body 98.5 [degF] Temperature BP 97 mm[Hg] Diastolic BP Systolic 150 mm[Hg] Heart 90 /min Rate/Pulse O2% 100 % Respiratory 20 /min Rate 07-19-2013 16:10 Name Value Interpretat Reference Comment ion Range BP 95 mm[Hg] Diastolic BP Systolic 140 mm[Hg] Heart 100 /min Rate/Pulse O2% 100 % Respiratory 20 /min Rate 05-10-2013 21:50 Name Value Interpretat Reference Comment ion Range Body 97.8 [degF] Temperature BP 81 mm[Hg] Diastolic BP Systolic 129 mm[Hg] Heart 93 /min Rate/Pulse O2% 95 % Respiratory 20 /min Rate 02-10-2013 15:52 Name Value Interpretat Reference Comment ion Range Body 98.4 [degF] Temperature BP 84 mm[Hg] Diastolic BP Systolic 147 mm[Hg] Heart 75 /min Rate/Pulse O2% 98 % Respiratory 20 /min Rate 02-10-2013 12:13 Name Value Interpretat Reference Comment ion Range BP 82 mm[Hg] Diastolic BP Systolic 131 mm[Hg] Heart 80 /min Rate/Pulse O2% 98 % Respiratory 20 /min Rate 01-15-2013 09:40 Name Value Interpretat Reference Comment ion Range Body 97.7 [degF] Temperature BP 74 mm[Hg] Diastolic BP Systolic 141 mm[Hg] Heart 55 /min Rate/Pulse Respiratory 18 /min Rate 01-15-2013 08:00 Name Value Interpretat Reference Comment ion Range O2% 97 % 01-12-2013 13:42 Name Value Interpretat Reference Comment ion Range Height 182.88 cm Weight 105.745 kg Measured 01-12-2013 08:18 Name Value Interpretat Reference Comment ion Range Body 98.6 [degF] Temperature BP 99 mm[Hg] Diastolic BP Systolic 150 mm[Hg] Heart 110 /min Rate/Pulse O2% 96 % Respiratory 24 /min Rate Weight 0 [oz_av] Measured 12-24-2012 09:42 Name Value Interpretat Reference Comment ion Range BP 82 mm[Hg] Diastolic BP Systolic 132 mm[Hg] Heart 71 /min Rate/Pulse O2% 96 % Respiratory 16 /min Rate 12-24-2012 08:00 Name Value Interpretat Reference Comment ion Range BP 87 mm[Hg] Diastolic BP Systolic 140 mm[Hg] Heart 77 /min Rate/Pulse O2% 98 % Respiratory 20 /min Rate Results Labs Lab Lab Date Result Refere Interp Status Commen Order Detail nces retati t Range on COMPREHENSIVE METABOLIC PANEL (10-08-2013 06:20) Glucose 99 74-106 complet 014 mg/dL ed Bld-mCn 06:20 c BUN 10 7-18 complet Bld-mCn 014 mg/dL ed c 06:20 Creat 1.3 0.8-1.3 complet SerPl-m 014 mg/dL ed Cnc 06:20 Creat 109 50-200 complet Cl 014 ML/MIN ed predict 06:20 ed SerPl C-G-vRa te GFR/BSA 61 Greater complet .pred 014 ML/MIN than ed SerPl 06:20 60 Schwart z-vRate Sodium 143 136-145 complet SerPl-s 014 mmoL/L ed Cnc 06:20 Potassi 4.7 3.5-5.1 complet um 014 mmoL/L ed SerPl-s 06:20 Cnc Chlorid 106 98-107 complet e 014 mmoL/L ed SerPl-s 06:20 Cnc CO2 35 21.0-32 complet SerPl-s 014 mmoL/L .0 ed Cnc 06:20 Calcium 8.5 8.5-10. complet 014 mg/dL 1 ed SerPl-m 06:20 Cnc Prot 5.9 6.4-8.2 complet SerPl-m 014 gm/dL ed Cnc 06:20 Albumin 01-25-2 3.2 3.4-5.0 complet 014 gm/dL ed SerPl-m 06:20 Cnc Globuli 2 2.7 1.3-3.2 complet n 014 gm/dL ed Ser-mCn 06:20 c Albumin 2 1.2 UNK 1.1-1.8 complet /Glob 014 ed SerPl-m 06:20 Rto Bilirub 2 0.3 0.2-1.0 complet 014 mg/dL ed SerPl-m 06:20 Cnc AST 13 U/L 15-37 complet SerPl-c 014 ed Cnc 06:20 ALT 77 U/L 12-78 complet SerPl-c 014 ed Cnc 06:20 ALP 175 U/L 50-136 complet SerPl-c 014 ed Cnc 06:20 CBC with AUTO DIFF (10-08-2013 06:20) WBC # 10-08-2 9.1 4.8-10. complet Bld 014 K/MM3 8 ed Auto 06:20 RBC # 10-08-2 4.90 4.6-6.2 complet Bld 014 M/mm3 ed Auto 06:20 Hgb 14.1 14.1-18 complet Bld-mCn 014 g/dL .0 ed c 06:20 Hct Fr 41.9 % 42.0-52 complet Bld 014 .0 ed 06:20 MCV RBC 85.5 fl 82.2-97 complet 014 .8 ed 06:20 MCH RBC 28.8 pg 27-31.2 complet Qn 014 ed Auto 06:20 MEAN 33.7 31.8-35 complet CORPUSC 014 g/dl .4 ed ULAR 06:20 HGB CONC RDW RBC 15.4 % 11.5-17 complet Auto 014 .5 ed 06:20 Platele 210 142-424 complet t Bld 014 K/mm3 ed Ql 06:20 Manual MEAN 7.7 fl 7.4-10. complet PLATELE 014 4 ed T 06:20 VOLUME Granulo 42.5 % 37.0-80 complet cytes 014 .0 ed Fr Bld 06:20 Auto LYMPH % 48.8 % 10-50 complet 014 ed 06:20 Monocyt 10-08-2 4.8 % 1.7-9.3 complet es Fr 014 ed Bld 06:20 Auto Eosinop 3.4 % 0.1-12. complet hil Fr 014 0 ed Bld 06:20 Auto Basophi 10-08-2 0.5 % 0.1-2.0 complet ls Fr 014 ed Bld 06:20 Auto Granulo 3.9 1.3-8.0 complet cytes # 014 K/mm3 ed Bld 06:20 Auto Lymphoc 4.5 0.7-4.5 complet ytes Fr 014 K/mm3 ed Bld 06:20 Auto Monocyt 0.4 0.1-1.0 complet es # 014 K/mm3 ed Bld 06:20 Auto Eosinop 0.3 0.0-0.4 complet hil # 014 K/mm3 ed Bld 06:20 Auto Basophi 10-08-2 0.1 0-0.2 complet ls # 014 K/MM3 ed Bld 06:20 Auto COMPREHENSIVE METABOLIC PANEL (10-07-2013 06:00) Glucose 107 74-106 complet 014 mg/dL ed Bld-mCn 06:00 c BUN 10 7-18 complet Bld-mCn 014 mg/dL ed c 06:00 Creat 1.3 0.8-1.3 complet SerPl-m 014 mg/dL ed Cnc 06:00 Creat 109 50-200 complet Cl 014 ML/MIN ed predict 06:00 ed SerPl C-G-vRa te GFR/BSA 61 Greater complet .pred 014 ML/MIN than ed SerPl 06:00 60 Schwart z-vRate Sodium 138 136-145 complet SerPl-s 014 mmoL/L ed Cnc 06:00 Potassi 4.2 3.5-5.1 complet um 014 mmoL/L ed SerPl-s 06:00 Cnc Chlorid 105 98-107 complet e 014 mmoL/L ed SerPl-s 06:00 Cnc CO2 31 21.0-32 complet SerPl-s 014 mmoL/L .0 ed Cnc 06:00 Calcium 8.4 8.5-10. complet 014 mg/dL 1 ed SerPl-m 06:00 Cnc Prot 6.2 6.4-8.2 complet SerPl-m 014 gm/dL ed Cnc 06:00 Albumin 2 2.9 3.4-5.0 complet 014 gm/dL ed SerPl-m 06:00 Cnc Globuli 3.3 1.3-3.2 complet n 014 gm/dL ed Ser-mCn 06:00 c Albumin 0.9 UNK 1.1-1.8 complet /Glob 014 ed SerPl-m 06:00 Rto Bilirub 0.5 0.2-1.0 complet 014 mg/dL ed SerPl-m 06:00 Cnc AST 25 U/L 15-37 complet SerPl-c 014 ed Cnc 06:00 ALT 94 U/L 12-78 complet SerPl-c 014 ed Cnc 06:00 ALP 197 U/L 50-136 complet SerPl-c 014 ed Cnc 06:00 CBC with AUTO DIFF (10-07-2013 06:00) WBC # 10-07-2 8.5 4.8-10. complet Bld 014 K/MM3 8 ed Auto 06:00 RBC # 10-07-2 4.63 4.6-6.2 complet Bld 014 M/mm3 ed Auto 06:00 Hgb 13.5 14.1-18 complet Bld-mCn 014 g/dL .0 ed c 06:00 Hct Fr 39.4 % 42.0-52 complet Bld 014 .0 ed 06:00 MCV RBC 85.0 fl 82.2-97 complet 014 .8 ed 06:00 MCH RBC 29.1 pg 27-31.2 complet Qn 014 ed Auto 06:00 MEAN 34.2 31.8-35 complet CORPUSC 014 g/dl .4 ed ULAR 06:00 HGB CONC RDW RBC 2 15.3 % 11.5-17 complet Auto 014 .5 ed 06:00 Platele 10-07-2 186 142-424 complet t Bld 014 K/mm3 ed Ql 06:00 Manual MEAN 7.6 fl 7.4-10. complet PLATELE 014 4 ed T 06:00 VOLUME Granulo 2 42.1 % 37.0-80 complet cytes 014 .0 ed Fr Bld 06:00 Auto LYMPH % 24-2 49.1 % 10-50 complet 014 ed 06:00 Monocyt 10-07-2 5.1 % 1.7-9.3 complet es Fr 014 ed Bld 06:00 Auto Eosinop 10-07-2 3.2 % 0.1-12. complet hil Fr 014 0 ed Bld 06:00 Auto Basophi 24-2 0.5 % 0.1-2.0 complet ls Fr 014 ed Bld 06:00 Auto Granulo 2 3.6 1.3-8.0 complet cytes # 014 K/mm3 ed Bld 06:00 Auto Lymphoc 24-2 4.2 0.7-4.5 complet ytes Fr 014 K/mm3 ed Bld 06:00 Auto Monocyt 10-07-2 0.4 0.1-1.0 complet es # 014 K/mm3 ed Bld 06:00 Auto Eosinop 24-2 0.3 0.0-0.4 complet hil # 014 K/mm3 ed Bld 06:00 Auto Basophi 24-2 0.0 0-0.2 complet ls # 014 K/MM3 ed Bld 06:00 Auto COMPREHENSIVE METABOLIC PANEL (10-06-2013 06:10) Glucose 127 74-106 complet 014 mg/dL ed Bld-mCn 06:10 c BUN 10 7-18 complet Bld-mCn 014 mg/dL ed c 06:10 Creat 1.2 0.8-1.3 complet SerPl-m 014 mg/dL ed Cnc 06:10 Creat 118 50-200 complet Cl 014 ML/MIN ed predict 06:10 ed SerPl C-G-vRa te GFR/BSA 67 Greater complet .pred 014 ML/MIN than ed SerPl 06:10 60 Schwart z-vRate Sodium 139 136-145 complet SerPl-s 014 mmoL/L ed Cnc 06:10 Potassi 4.5 3.5-5.1 complet um 014 mmoL/L ed SerPl-s 06:10 Cnc Chlorid 103 98-107 complet e 014 mmoL/L ed SerPl-s 06:10 Cnc CO2 33 21.0-32 complet SerPl-s 014 mmoL/L .0 ed Cnc 06:10 Calcium 8.5 8.5-10. complet 014 mg/dL 1 ed SerPl-m 06:10 Cnc Prot 6.8 6.4-8.2 complet SerPl-m 014 gm/dL ed Cnc 06:10 Albumin 3.4 3.4-5.0 complet 014 gm/dL ed SerPl-m 06:10 Cnc Globuli 3.4 1.3-3.2 complet n 014 gm/dL ed Ser-mCn 06:10 c Albumin 1.0 UNK 1.1-1.8 complet /Glob 014 ed SerPl-m 06:10 Rto Bilirub 1.0 0.2-1.0 complet 014 mg/dL ed SerPl-m 06:10 Cnc AST 114 U/L 15-37 complet SerPl-c 014 ed Cnc 06:10 ALT 183 U/L 12-78 complet SerPl-c 014 ed Cnc 06:10 ALP 250 U/L 50-136 complet SerPl-c 014 ed Cnc 06:10 LIPASE (10-06-2013 06:10) LIPASE 2723 73-393 complet 014 U/L ed 06:10 CBC with AUTO DIFF (10-06-2013 06:10) WBC # 10-06- 10.0 4.8-10. complet Bld 014 K/MM3 8 ed Auto 06:10 RBC # 10-06-2 5.19 4.6-6.2 complet Bld 014 M/mm3 ed Auto 06:10 Hgb 23-2 15.0 14.1-18 complet Bld-mCn 014 g/dL .0 ed c 06:10 Hct Fr 10-06-2 44.8 % 42.0-52 complet Bld 014 .0 ed 06:10 MCV RBC 10-06- 86.3 fl 82.2-97 complet 014 .8 ed 06:10 MCH RBC 2 28.9 pg 27-31.2 complet Qn 014 ed Auto 06:10 MEAN 2 33.5 31.8-35 complet CORPUSC 014 g/dl .4 ed ULAR 06:10 HGB CONC RDW RBC 2 15.2 % 11.5-17 complet Auto 014 .5 ed 06:10 Platele 10-06-2 184 142-424 complet t Bld 014 K/mm3 ed Ql 06:10 Manual MEAN 2 7.2 fl 7.4-10. complet PLATELE 014 4 ed T 06:10 VOLUME Granulo 10-06-2 78.6 % 37.0-80 complet cytes 014 .0 ed Fr Bld 06:10 Auto LYMPH % 23-2 15.1 % 10-50 complet 014 ed 06:10 Monocyt 23-2 4.5 % 1.7-9.3 complet es Fr 014 ed Bld 06:10 Auto Eosinop -23-2 1.7 % 0.1-12. complet hil Fr 014 0 ed Bld 06:10 Auto Basophi -23-2 0.2 % 0.1-2.0 complet ls Fr 014 ed Bld 06:10 Auto Granulo -23-2 7.8 1.3-8.0 complet cytes # 014 K/mm3 ed Bld 06:10 Auto Lymphoc -23-2 1.5 0.7-4.5 complet ytes Fr 014 K/mm3 ed Bld 06:10 Auto Monocyt -23-2 0.4 0.1-1.0 complet es # 014 K/mm3 ed Bld 06:10 Auto Eosinop -23-2 0.2 0.0-0.4 complet hil # 014 K/mm3 ed Bld 06:10 Auto Basophi 01-23-2 0.0 0-0.2 complet ls # 014 K/MM3 ed Bld 06:10 Auto COMPREHENSIVE METABOLIC PANEL (10-05-2013 11:15) Glucose 97 74-106 complet 014 mg/dL ed Bld-mCn 11:15 c BUN 14 7-18 complet Bld-mCn 014 mg/dL ed c 11:15 Creat 1.2 0.8-1.3 complet SerPl-m 014 mg/dL ed Cnc 11:15 Creat 124 50-200 complet Cl 014 ML/MIN ed predict 11:15 ed SerPl C-G-vRa te GFR/BSA 67 Greater complet .pred 014 ML/MIN than ed SerPl 11:15 60 Schwart z-vRate Sodium 139 136-145 complet SerPl-s 014 mmoL/L ed Cnc 11:15 Potassi 3.9 3.5-5.1 complet um 014 mmoL/L ed SerPl-s 11:15 Cnc Chlorid 103 98-107 complet e 014 mmoL/L ed SerPl-s 11:15 Cnc CO2 27 21.0-32 complet SerPl-s 014 mmoL/L .0 ed Cnc 11:15 Calcium 9.0 8.5-10. complet 014 mg/dL 1 ed SerPl-m 11:15 Cnc Prot 7.8 6.4-8.2 complet SerPl-m 014 gm/dL ed Cnc 11:15 Albumin 4.0 3.4-5.0 complet 014 gm/dL ed SerPl-m 11:15 Cnc Globuli 3.8 1.3-3.2 complet n 014 gm/dL ed Ser-mCn 11:15 c Albumin 1.1 UNK 1.1-1.8 complet /Glob 014 ed SerPl-m 11:15 Rto Bilirub 0.3 0.2-1.0 complet 014 mg/dL ed SerPl-m 11:15 Cnc AST 11 U/L 15-37 complet SerPl-c 014 ed Cnc 11:15 ALT 28 U/L 12-78 complet SerPl-c 014 ed Cnc 11:15 ALP 130 U/L 50-136 complet SerPl-c 014 ed Cnc 11:15 LIPASE (10-05-2013 11:15) LIPASE 1349 73-393 complet 014 U/L ed 11:15 LDH (10-05-2013 11:15) LDH 155 U/L 85-227 complet 014 ed 11:15 CBC with AUTO DIFF (10-05-2013 11:15) WBC # 11.5 4.8-10. complet Bld 014 K/MM3 8 ed Auto 11:15 RBC # 5.48 4.6-6.2 complet Bld 014 M/mm3 ed Auto 11:15 Hgb 15.9 14.1-18 complet Bld-mCn 014 g/dL .0 ed c 11:15 Hct Fr 45.9 % 42.0-52 complet Bld 014 .0 ed 11:15 MCV RBC 83.8 fl 82.2-97 complet 014 .8 ed 11:15 MCH RBC 28.9 pg 27-31.2 complet Qn 014 ed Auto 11:15 MEAN 34.5 31.8-35 complet CORPUSC 014 g/dl .4 ed ULAR 11:15 HGB CONC RDW RBC 15.5 % 11.5-17 complet Auto 014 .5 ed 11:15 Platele 217 142-424 complet t Bld 014 K/mm3 ed Ql 11:15 Manual MEAN 7.4 fl 7.4-10. complet PLATELE 014 4 ed T 11:15 VOLUME Granulo 60.4 % 37.0-80 complet cytes 014 .0 ed Fr Bld 11:15 Auto LYMPH % 31.8 % 10-50 complet 014 ed 11:15 Monocyt 4.5 % 1.7-9.3 complet es Fr 014 ed Bld 11:15 Auto Eosinop 2.7 % 0.1-12. complet hil Fr 014 0 ed Bld 11:15 Auto Basophi 0.6 % 0.1-2.0 complet ls Fr 014 ed Bld 11:15 Auto Granulo 6.9 1.3-8.0 complet cytes # 014 K/mm3 ed Bld 11:15 Auto Lymphoc 3.7 0.7-4.5 complet ytes Fr 014 K/mm3 ed Bld 11:15 Auto Monocyt 10-05-2 0.5 0.1-1.0 complet es # 014 K/mm3 ed Bld 11:15 Auto Eosinop 0.3 0.0-0.4 complet hil # 014 K/mm3 ed Bld 11:15 Auto Basophi 0.1 0-0.2 complet ls # 014 K/MM3 ed Bld 11:15 Auto URINALYSIS/COMPLETE (10-05-2013 11:00) URINE YELLOW YELLOW complet COLOR 014 ed 11:00 URINE CLEAR CLEAR complet APPEARA 014 ed NCE 11:00 URINE NEGATIV NEG complet GLUCOSE 014 E ed - 11:00 DIPSTIC K URINE NEGATIV NEG complet BILIRUB 014 E ed IN - 11:00 DIPSTIC K URINE NEGATIV NEG complet KETONE 014 E mg/dL ed 11:00 URINE 1.015 1.005-1 complet SPECIFI 014 UNK .030 ed C 11:00 GRAVITY URINE 1+ NEG complet BLOOD 014 ed 11:00 URINE 6.0 UNK 5.0-8.5 complet PH 014 ed 11:00 URINE NEGATIV NEG complet PROTEIN 014 E mg/dL ed - 11:00 DIPSTIC K URINE 0.2 NEG complet UROBILI 014 E.U./dL ed NOGEN - 11:00 DIPSTIC K URINE NEGATIV NEG complet NITRATE 014 E ed - 11:00 DIPSTIC K URINE NEGATIV NEG complet LEUK 014 E ed ESTERAS 11:00 E URINE 5-10 0 complet RBC 014 rbc/hpf ed 11:00 URINE OCC OCC complet SQUAMOU 014 #/hpf ed S CELLS 11:00 URIC ACID (07-19-2013 15:48) URIC 6.9 2.6-7.2 complet ACID 013 mg/dL ed 15:48 OCCULT BLOOD (02-10-2013 13:08) Hemocul NEGATIV NEG complet t sp1 013 E ed Stl Ql 13:08 COMPREHENSIVE METABOLIC PANEL (02-10-2013 12:10) Glucose 96 74-106 complet 013 mg/dL ed Bld-mCn 12:10 c BUN 19 7-18 complet Bld-mCn 013 mg/dL ed c 12:10 Creat 1.4 0.8-1.3 complet SerPl-m 013 mg/dL ed Cnc 12:10 ESTIMAT 106 50-200 complet ED 013 ML/MIN ed CREATIN 12:10 INE CLEARAN CE GFR 56 Greater complet (ESTIMA 013 ML/MIN than ed ERICA) 12:10 60 Sodium 140 136-145 complet SerPl-s 013 mmoL/L ed Cnc 12:10 Potassi 4.5 3.5-5.1 complet um 013 mmoL/L ed SerPl-s 12:10 Cnc Chlorid 103 98-107 complet e 013 mmoL/L ed SerPl-s 12:10 Cnc CO2 29 21.0-32 complet SerPl-s 013 mmoL/L .0 ed Cnc 12:10 Calcium 9.2 8.5-10. complet 013 mg/dL 1 ed SerPl-m 12:10 Cnc Prot 8.0 6.4-8.2 complet SerPl-m 013 gm/dL ed Cnc 12:10 Albumin 4.2 3.4-5.0 complet 013 gm/dL ed SerPl-m 12:10 Cnc Globuli 3.8 1.3-3.2 complet n 013 gm/dL ed Ser-mCn 12:10 c Albumin 1.1 UNK 1.1-1.8 complet /Glob 013 ed SerPl-m 12:10 Rto Bilirub -30-2 0.3 0.2-1.0 complet 013 mg/dL ed SerPl-m 12:10 Cnc AST -30-2 15 U/L 15-37 complet SerPl-c 013 ed Cnc 12:10 ALT -30-2 37 U/L 30-65 complet SerPl-c 013 ed Cnc 12:10 ALP -30-2 120 U/L 50-136 complet SerPl-c 013 ed Cnc 12:10 Amylase SerPl-cCnc (02-10-2013 12:10) Amylase -30-2 54 U/L 25-115 complet 013 ed SerPl-c 12:10 Cnc LIPASE (02-10-2013 12:10) LIPASE -30-2 205 U/L 73-393 complet 013 ed 12:10 CBC with AUTO DIFF (02-10-2013 12:10) WBC # 05-30-2 7.4 4.8-10. complet Bld 013 K/MM3 8 ed Auto 12:10 RBC # 30-2 5.52 4.6-6.2 complet Bld 013 M/mm3 ed Auto 12:10 Hgb -30-2 16.2 14.1-18 complet Bld-mCn 013 g/dL .0 ed c 12:10 Hct Fr 30-2 48.0 % 42.0-52 complet Bld 013 .0 ed 12:10 MCV RBC -30-2 86.9 fl 82.2-97 complet 013 .8 ed 12:10 MCH RBC -30-2 29.4 pg 27-31.2 complet Qn 013 ed Auto 12:10 MEAN -30-2 33.8 31.8-35 complet CORPUSC 013 g/dl .4 ed ULAR 12:10 HGB CONC RDW RBC -30-2 15.3 % 11.5-17 complet Auto 013 .5 ed 12:10 Platele 05-30-2 221 142-424 complet t Bld 013 K/mm3 ed Ql 12:10 Manual MEAN 05-30-2 7.7 fl 7.4-10. complet PLATELE 013 4 ed T 12:10 VOLUME Granulo -30-2 50.7 % 37.0-80 complet cytes 013 .0 ed Fr Bld 12:10 Auto LYMPH % 05-30-2 39.6 % 10-50 complet 013 ed 12:10 Monocyt 05-30-2 4.8 % 1.7-9.3 complet es Fr 013 ed Bld 12:10 Auto Eosinop 05-30-2 4.5 % 0.1-12. complet hil Fr 013 0 ed Bld 12:10 Auto Basophi 05-30-2 0.4 % 0.1-2.0 complet ls Fr 013 ed Bld 12:10 Auto Granulo 05-30-2 3.8 1.3-8.0 complet cytes # 013 K/mm3 ed Bld 12:10 Auto Lymphoc 05-30-2 3.0 0.7-4.5 complet ytes Fr 013 K/mm3 ed Bld 12:10 Auto Monocyt 05-30-2 0.4 0.1-1.0 complet es # 013 K/mm3 ed Bld 12:10 Auto Eosinop 05-30-2 0.3 0.0-0.4 complet hil # 013 K/mm3 ed Bld 12:10 Auto Basophi 05-30-2 0.0 0-0.2 complet ls # 013 K/MM3 ed Bld 12:10 Auto URINALYSIS/COMPLETE (02-10-2013 12:10) URINE 05-30-2 YELLOW YELLOW complet COLOR 013 ed 12:10 URINE 05-30-2 CLEAR CLEAR complet APPEARA 013 ed NCE 12:10 URINE 05-30-2 NEGATIV NEG complet GLUCOSE 013 E ed - 12:10 DIPSTIC K URINE 05-30-2 NEGATIV NEG complet BILIRUB 013 E ed IN - 12:10 DIPSTIC K URINE 05-30-2 NEGATIV NEG complet KETONE 013 E mg/dL ed 12:10 URINE 05-30-2 Less 1.005-1 complet SPECIFI 013 than or .030 ed C 12:10 equal GRAVITY to 1.005 URINE 05-30-2 TRACE-I NEG complet BLOOD 013 NTACT ed 12:10 URINE 05-30-2 6.0 UNK 5.0-8.5 complet PH 013 ed 12:10 URINE 05-30-2 NEGATIV NEG complet PROTEIN 013 E mg/dL ed - 12:10 DIPSTIC K URINE 05-30-2 0.2 NEG complet UROBILI 013 E.U./dL ed NOGEN - 12:10 DIPSTIC K URINE 05-30-2 NEGATIV NEG complet NITRATE 013 E ed - 12:10 DIPSTIC K URINE 05-30-2 NEGATIV NEG complet LEUK 013 E ed ESTERAS 12:10 E URINE 30-2 3-5 0 complet RBC 013 rbc/hpf ed 12:10 URINE 30-2 OCC O complet WBC 013 wbc/hpf ed 12:10 URINE 30-2 OCC OCC complet SQUAMOU 013 #/hpf ed S CELLS 12:10 LIPASE (01-15-2013 06:10) LIPASE 05-04-2 262 U/L 73-393 complet 013 ed 06:10 CBC with AUTO DIFF (01-15-2013 06:10) WBC # 05-04-2 9.2 4.8-10. complet Bld 013 K/MM3 8 ed Auto 06:10 RBC # 05-04-2 5.42 4.6-6.2 complet Bld 013 M/mm3 ed Auto 06:10 Hgb 05-04-2 15.9 14.1-18 complet Bld-mCn 013 g/dL .0 ed c 06:10 Hct Fr -04-2 48.1 % 42.0-52 complet Bld 013 .0 ed 06:10 MCV RBC 05-04-2 88.8 fl 82.2-97 complet 013 .8 ed 06:10 MCH RBC 05-04-2 29.4 pg 27-31.2 complet Qn 013 ed Auto 06:10 MEAN 05-04-2 33.1 31.8-35 complet CORPUSC 013 g/dl .4 ed ULAR 06:10 HGB CONC RDW RBC 05-04-2 15.2 % 11.5-17 complet Auto 013 .5 ed 06:10 Platele 05-04-2 207 142-424 complet t Bld 013 K/mm3 ed Ql 06:10 Manual MEAN 05-04-2 7.4 fl 7.4-10. complet PLATELE 013 4 ed T 06:10 VOLUME Granulo 05-04-2 49.4 % 37.0-80 complet cytes 013 .0 ed Fr Bld 06:10 Auto LYMPH % 05-04-2 39.8 % 10-50 complet 013 ed 06:10 Monocyt 05-04-2 5.9 % 1.7-9.3 complet es Fr 013 ed Bld 06:10 Auto Eosinop 05-04-2 4.4 % 0.1-12. complet hil Fr 013 0 ed Bld 06:10 Auto Basophi 05-04-2 0.5 % 0.1-2.0 complet ls Fr 013 ed Bld 06:10 Auto Granulo 05-04-2 4.6 1.3-8.0 complet cytes # 013 K/mm3 ed Bld 06:10 Auto Lymphoc 05-04-2 3.7 0.7-4.5 complet ytes Fr 013 K/mm3 ed Bld 06:10 Auto Monocyt 05-04-2 0.5 0.1-1.0 complet es # 013 K/mm3 ed Bld 06:10 Auto Eosinop 05-04-2 0.4 0.0-0.4 complet hil # 013 K/mm3 ed Bld 06:10 Auto Basophi 05-04-2 0.1 0-0.2 complet ls # 013 K/MM3 ed Bld 06:10 Auto BASIC METABOLIC PANEL (01-14-2013 06:10) Glucose 03-2 92 74-106 complet 013 mg/dL ed Bld-mCn 06:10 c BUN 03-2 10 7-18 complet Bld-mCn 013 mg/dL ed c 06:10 Creat 03-2 1.3 0.8-1.3 complet SerPl-m 013 mg/dL ed Cnc 06:10 ESTIMAT 03-2 112 50-200 complet ED 013 ML/MIN ed CREATIN 06:10 INE CLEARAN CE GFR 2 61 Greater complet (ESTIMA 013 ML/MIN than ed ERICA) 06:10 60 Sodium 03-2 139 136-145 complet SerPl-s 013 mmoL/L ed Cnc 06:10 Potassi 01-14-2 4.2 3.5-5.1 complet um 013 mmoL/L ed SerPl-s 06:10 Cnc Chlorid 01-14-2 102 98-107 complet e 013 mmoL/L ed SerPl-s 06:10 Cnc CO2 01-14-2 31 21.0-32 complet SerPl-s 013 mmoL/L .0 ed Cnc 06:10 Calcium 03-2 9.1 8.5-10. complet 013 mg/dL 1 ed SerPl-m 06:10 Cnc LIPASE (01-14-2013 06:10) LIPASE 05-03-2 595 U/L 73-393 complet 013 ed 06:10 CBC with AUTO DIFF (01-14-2013 06:10) WBC # 05-03-2 13.3 4.8-10. complet Bld 013 K/MM3 8 ed Auto 06:10 RBC # 05-03-2 5.48 4.6-6.2 complet Bld 013 M/mm3 ed Auto 06:10 Hgb 05-03-2 16.5 14.1-18 complet Bld-mCn 013 g/dL .0 ed c 06:10 Hct Fr 05-03-2 49.4 % 42.0-52 complet Bld 013 .0 ed 06:10 MCV RBC 05-03-2 90.2 fl 82.2-97 complet 013 .8 ed 06:10 MCH RBC -03-2 30.1 pg 27-31.2 complet Qn 013 ed Auto 06:10 MEAN -03-2 33.4 31.8-35 complet CORPUSC 013 g/dl .4 ed ULAR 06:10 HGB CONC RDW RBC 05-03-2 15.5 % 11.5-17 complet Auto 013 .5 ed 06:10 Platele 05-03-2 219 142-424 complet t Bld 013 K/mm3 ed Ql 06:10 Manual MEAN -03-2 7.6 fl 7.4-10. complet PLATELE 013 4 ed T 06:10 VOLUME Granulo -03-2 71.3 % 37.0-80 complet cytes 013 .0 ed Fr Bld 06:10 Auto LYMPH % 05-03-2 21.9 % 10-50 complet 013 ed 06:10 Monocyt 05-03-2 4.3 % 1.7-9.3 complet es Fr 013 ed Bld 06:10 Auto Eosinop 05-03-2 2.2 % 0.1-12. complet hil Fr 013 0 ed Bld 06:10 Auto Basophi 05-03-2 0.3 % 0.1-2.0 complet ls Fr 013 ed Bld 06:10 Auto Granulo 05-03-2 9.5 1.3-8.0 complet cytes # 013 K/mm3 ed Bld 06:10 Auto Lymphoc 05-03-2 2.9 0.7-4.5 complet ytes Fr 013 K/mm3 ed Bld 06:10 Auto Monocyt 03-2 0.6 0.1-1.0 complet es # 013 K/mm3 ed Bld 06:10 Auto Eosinop 01-14-2 0.3 0.0-0.4 complet hil # 013 K/mm3 ed Bld 06:10 Auto Basophi 01-14-2 0.0 0-0.2 complet ls # 013 K/MM3 ed Bld 06:10 Auto BASIC METABOLIC PANEL (01-13-2013 06:25) Glucose 87 74-106 complet 013 mg/dL ed Bld-mCn 06:25 c BUN 01-13-2 12 7-18 complet Bld-mCn 013 mg/dL ed c 06:25 Creat 2 1.2 0.8-1.3 complet SerPl-m 013 mg/dL ed Cnc 06:25 ESTIMAT 121 50-200 complet ED 013 ML/MIN ed CREATIN 06:25 INE CLEARAN CE GFR 67 Greater complet (ESTIMA 013 ML/MIN than ed ERICA) 06:25 60 Sodium 139 136-145 complet SerPl-s 013 mmoL/L ed Cnc 06:25 Potassi 3.9 3.5-5.1 complet um 013 mmoL/L ed SerPl-s 06:25 Cnc Chlorid 103 98-107 complet e 013 mmoL/L ed SerPl-s 06:25 Cnc CO2 28 21.0-32 complet SerPl-s 013 mmoL/L .0 ed Cnc 06:25 Calcium 01-13-2 8.8 8.5-10. complet 013 mg/dL 1 ed SerPl-m 06:25 Cnc LIPASE (01-13-2013 06:25) LIPASE 3011 73-393 complet 013 U/L ed 06:25 CBC with AUTO DIFF (01-13-2013 06:25) WBC # 05-02-2 10.2 4.8-10. complet Bld 013 K/MM3 8 ed Auto 06:25 RBC # 05-02-2 5.72 4.6-6.2 complet Bld 013 M/mm3 ed Auto 06:25 Hgb 05-02-2 15.9 14.1-18 complet Bld-mCn 013 g/dL .0 ed c 06:25 Hct Fr 05-02-2 50.9 % 42.0-52 complet Bld 013 .0 ed 06:25 MCV RBC 05-02-2 89.0 fl 82.2-97 complet 013 .8 ed 06:25 MCH RBC 05-02-2 27.9 pg 27-31.2 complet Qn 013 ed Auto 06:25 MEAN 05-02-2 31.3 31.8-35 complet CORPUSC 013 g/dl .4 ed ULAR 06:25 HGB CONC RDW RBC 05-02-2 15.4 % 11.5-17 complet Auto 013 .5 ed 06:25 Platele 05-02-2 200 142-424 complet t Bld 013 K/mm3 ed Ql 06:25 Manual MEAN 05-02-2 7.3 fl 7.4-10. complet PLATELE 013 4 ed T 06:25 VOLUME Granulo 05-02-2 65.7 % 37.0-80 complet cytes 013 .0 ed Fr Bld 06:25 Auto LYMPH % 05-02-2 27.3 % 10-50 complet 013 ed 06:25 Monocyt 05-02-2 4.8 % 1.7-9.3 complet es Fr 013 ed Bld 06:25 Auto Eosinop 05-02-2 1.9 % 0.1-12. complet hil Fr 013 0 ed Bld 06:25 Auto Basophi 05-02-2 0.3 % 0.1-2.0 complet ls Fr 013 ed Bld 06:25 Auto Granulo 05-02-2 6.7 1.3-8.0 complet cytes # 013 K/mm3 ed Bld 06:25 Auto Lymphoc 05-02-2 2.8 0.7-4.5 complet ytes Fr 013 K/mm3 ed Bld 06:25 Auto Monocyt 05-02-2 0.5 0.1-1.0 complet es # 013 K/mm3 ed Bld 06:25 Auto Eosinop 05-02-2 0.2 0.0-0.4 complet hil # 013 K/mm3 ed Bld 06:25 Auto Basophi 05-02-2 0.0 0-0.2 complet ls # 013 K/MM3 ed Bld 06:25 Auto URINALYSIS/COMPLETE (01-12-2013 10:16) URINE YELLOW YELLOW complet COLOR 013 ed 10:16 URINE CLEAR CLEAR complet APPEARA 013 ed NCE 10:16 URINE NEGATIV NEG complet GLUCOSE 013 E ed - 10:16 DIPSTIC K URINE NEGATIV NEG complet BILIRUB 013 E ed IN - 10:16 DIPSTIC K URINE NEGATIV NEG complet KETONE 013 E mg/dL ed 10:16 URINE Less 1.005-1 complet SPECIFI 013 than or .030 ed C 10:16 equal GRAVITY to 1.005 URINE TRACE-I NEG complet BLOOD 013 NTACT ed 10:16 URINE 6.0 UNK 5.0-8.5 complet PH 013 ed 10:16 URINE NEGATIV NEG complet PROTEIN 013 E mg/dL ed - 10:16 DIPSTIC K URINE 2 0.2 NEG complet UROBILI 013 E.U./dL ed NOGEN - 10:16 DIPSTIC K URINE 2 NEGATIV NEG complet NITRATE 013 E ed - 10:16 DIPSTIC K URINE 01-12-2 NEGATIV NEG complet LEUK 013 E ed ESTERAS 10:16 E URINE OCC 0 complet RBC 013 rbc/hpf ed 10:16 URINE 3-5 O complet WBC 013 wbc/hpf ed 10:16 URINE 3-5 OCC complet SQUAMOU 013 #/hpf ed S CELLS 10:16 COMPREHENSIVE METABOLIC PANEL (01-12-2013 08:45) Glucose 115 74-106 complet 013 mg/dL ed Bld-mCn 08:45 c BUN 15 7-18 complet Bld-mCn 013 mg/dL ed c 08:45 Creat 1.4 0.8-1.3 complet SerPl-m 013 mg/dL ed Cnc 08:45 ESTIMAT 109 50-200 complet ED 013 ML/MIN ed CREATIN 08:45 INE CLEARAN CE GFR 56 Greater complet (ESTIMA 013 ML/MIN than ed ERICA) 08:45 60 Sodium 136 136-145 complet SerPl-s 013 mmoL/L ed Cnc 08:45 Potassi 3.8 3.5-5.1 complet um 013 mmoL/L ed SerPl-s 08:45 Cnc Chlorid 99 98-107 complet e 013 mmoL/L ed SerPl-s 08:45 Cnc CO2 26 21.0-32 complet SerPl-s 013 mmoL/L .0 ed Cnc 08:45 Calcium 9.4 8.5-10. complet 013 mg/dL 1 ed SerPl-m 08:45 Cnc Prot 7.8 6.4-8.2 complet SerPl-m 013 gm/dL ed Cnc 08:45 Albumin 4.0 3.4-5.0 complet 013 gm/dL ed SerPl-m 08:45 Cnc Globuli 3.8 1.3-3.2 complet n 013 gm/dL ed Ser-mCn 08:45 c Albumin 1.1 UNK 1.1-1.8 complet /Glob 013 ed SerPl-m 08:45 Rto Bilirub 0.5 0.2-1.0 complet 013 mg/dL ed SerPl-m 08:45 Cnc AST 32 U/L 15-37 complet SerPl-c 013 ed Cnc 08:45 ALT 45 U/L 30-65 complet SerPl-c 013 ed Cnc 08:45 ALP 128 U/L 50-136 complet SerPl-c 013 ed Cnc 08:45 Amylase SerPl-cCnc (01-12-2013 08:45) Amylase 214 U/L 25-115 complet 013 ed SerPl-c 08:45 Cnc LIPASE (01-12-2013 08:45) LIPASE 2092 73-393 complet 013 U/L ed 08:45 LIPID PROFILE (01-12-2013 08:45) Cholest 223 Less complet 013 mg/dL than ed SerPl-m 08:45 200 Cnc HDLc 05-01-2 25.0 40-60 complet SerPl-m 013 MG/DL ed Cnc 08:45 Trigl --2 464 30-200 complet SerPl-m 013 mg/dL ed Cnc 08:45 CBC with AUTO DIFF (01-12-2013 08:45) WBC # 05-01-2 14.7 4.8-10. complet Bld 013 K/MM3 8 ed Auto 08:45 RBC # 05-01-2 5.55 4.6-6.2 complet Bld 013 M/mm3 ed Auto 08:45 Hgb --2 16.7 14.1-18 complet Bld-mCn 013 g/dL .0 ed c 08:45 Hct Fr 01-12-2 48.3 % 42.0-52 complet Bld 013 .0 ed 08:45 MCV RBC 01-12-2 87.0 fl 82.2-97 complet 013 .8 ed 08:45 MCH RBC 01-12-2 30.1 pg 27-31.2 complet Qn 013 ed Auto 08:45 MEAN 01-12-2 34.6 31.8-35 complet CORPUSC 013 g/dl .4 ed ULAR 08:45 HGB CONC RDW RBC 01-12-2 15.4 % 11.5-17 complet Auto 013 .5 ed 08:45 Platele --2 233 142-424 complet t Bld 013 K/mm3 ed Ql 08:45 Manual MEAN 2 7.5 fl 7.4-10. complet PLATELE 013 4 ed T 08:45 VOLUME Granulo 01-12-2 61.7 % 37.0-80 complet cytes 013 .0 ed Fr Bld 08:45 Auto LYMPH % -01-2 30.4 % 10-50 complet 013 ed 08:45 Monocyt 05-01-2 4.2 % 1.7-9.3 complet es Fr 013 ed Bld 08:45 Auto Eosinop -01-2 3.3 % 0.1-12. complet hil Fr 013 0 ed Bld 08:45 Auto Basophi --2 0.4 % 0.1-2.0 complet ls Fr 013 ed Bld 08:45 Auto Granulo --2 9.1 1.3-8.0 complet cytes # 013 K/mm3 ed Bld 08:45 Auto Lymphoc --2 4.5 0.7-4.5 complet ytes Fr 013 K/mm3 ed Bld 08:45 Auto Monocyt 05-01-2 0.6 0.1-1.0 complet es # 013 K/mm3 ed Bld 08:45 Auto Eosinop --2 0.5 0.0-0.4 complet hil # 013 K/mm3 ed Bld 08:45 Auto Basophi 01-12-2 0.1 0-0.2 complet ls # 013 K/MM3 ed Bld 08:45 Auto COMPREHENSIVE METABOLIC PANEL (12-24-2012 07:55) Glucose 12-24- 105 74-106 complet 013 mg/dL ed Bld-mCn 07:55 c BUN 18 7-18 complet Bld-mCn 013 mg/dL ed c 07:55 Creat 1.4 0.8-1.3 complet SerPl-m 013 mg/dL ed Cnc 07:55 ESTIMAT 120 50-200 complet ED 013 ML/MIN ed CREATIN 07:55 INE CLEARAN CE GFR 56 Greater complet (ESTIMA 013 ML/MIN than ed ERICA) 07:55 60 Sodium 12-24-2 139 136-145 complet SerPl-s 013 mmoL/L ed Cnc 07:55 Potassi 4.0 3.5-5.1 complet um 013 mmoL/L ed SerPl-s 07:55 Cnc Chlorid 102 98-107 complet e 013 mmoL/L ed SerPl-s 07:55 Cnc CO2 30 21.0-32 complet SerPl-s 013 mmoL/L .0 ed Cnc 07:55 Calcium 12-24-2 9.2 8.5-10. complet 013 mg/dL 1 ed SerPl-m 07:55 Cnc Prot 12-24-2 7.8 6.4-8.2 complet SerPl-m 013 gm/dL ed Cnc 07:55 Albumin 12-24-2 3.9 3.4-5.0 complet 013 gm/dL ed SerPl-m 07:55 Cnc Globuli 3.9 1.3-3.2 complet n 013 gm/dL ed Ser-mCn 07:55 c Albumin 2 1.0 UNK 1.1-1.8 complet /Glob 013 ed SerPl-m 07:55 Rto Bilirub 2 0.4 0.2-1.0 complet 013 mg/dL ed SerPl-m 07:55 Cnc AST 26 U/L 15-37 complet SerPl-c 013 ed Cnc 07:55 ALT 2 48 U/L 30-65 complet SerPl-c 013 ed Cnc 07:55 ALP 2 133 U/L 50-136 complet SerPl-c 013 ed Cnc 07:55 Amylase SerPl-cCnc (12-24-2012 07:55) Amylase 2 79 U/L 25-115 complet 013 ed SerPl-c 07:55 Cnc LIPASE (12-24-2012 07:55) LIPASE 242 U/L 73-393 complet 013 ed 07:55 CBC with AUTO DIFF (12-24-2012 07:55) WBC # 12-24-2 11.8 4.8-10. complet Bld 013 K/MM3 8 ed Auto 07:55 RBC # 12-24-2 5.81 4.6-6.2 complet Bld 013 M/mm3 ed Auto 07:55 Hgb 12-24-2 17.3 14.1-18 complet Bld-mCn 013 g/dL .0 ed c 07:55 Hct Fr 12-24-2 51.4 % 42.0-52 complet Bld 013 .0 ed 07:55 MCV RBC 12-24-2 88.3 fl 82.2-97 complet 013 .8 ed 07:55 MCH RBC 12-24-2 29.8 pg 27-31.2 complet Qn 013 ed Auto 07:55 MEAN 12-24-2 33.8 31.8-35 complet CORPUSC 013 g/dl .4 ed ULAR 07:55 HGB CONC RDW RBC 12-24-2 14.9 % 11.5-17 complet Auto 013 .5 ed 07:55 Platele 12-24-2 240 142-424 complet t Bld 013 K/mm3 ed Ql 07:55 Manual MEAN 12-24-2 7.3 fl 7.4-10. complet PLATELE 013 4 ed T 07:55 VOLUME Granulo 04-12-2 56.0 % 37.0-80 complet cytes 013 .0 ed Fr Bld 07:55 Auto LYMPH % 04-12-2 35.1 % 10-50 complet 013 ed 07:55 Monocyt 04-12-2 5.3 % 1.7-9.3 complet es Fr 013 ed Bld 07:55 Auto Eosinop 04-12-2 3.1 % 0.1-12. complet hil Fr 013 0 ed Bld 07:55 Auto Basophi 04-12-2 0.5 % 0.1-2.0 complet ls Fr 013 ed Bld 07:55 Auto Granulo 04-12-2 6.6 1.3-8.0 complet cytes # 013 K/mm3 ed Bld 07:55 Auto Lymphoc 04-12-2 4.2 0.7-4.5 complet ytes Fr 013 K/mm3 ed Bld 07:55 Auto Monocyt 04-12-2 0.6 0.1-1.0 complet es # 013 K/mm3 ed Bld 07:55 Auto Eosinop 04-12-2 0.4 0.0-0.4 complet hil # 013 K/mm3 ed Bld 07:55 Auto Basophi 04-12-2 0.1 0-0.2 complet ls # 013 K/MM3 ed Bld 07:55 Auto URINALYSIS/COMPLETE (12-24-2012 07:36) URINE 04-12-2 YELLOW YELLOW complet COLOR 013 ed 07:36 URINE 04-12-2 CLEAR CLEAR complet APPEARA 013 ed NCE 07:36 URINE 04-12-2 NEGATIV NEG complet GLUCOSE 013 E ed - 07:36 DIPSTIC K URINE 04-12-2 NEGATIV NEG complet BILIRUB 013 E ed IN - 07:36 DIPSTIC K URINE 04-12-2 NEGATIV NEG complet KETONE 013 E mg/dL ed 07:36 URINE 04-12-2 1.020 1.005-1 complet SPECIFI 013 UNK .030 ed C 07:36 GRAVITY URINE 04-12-2 1+ NEG complet BLOOD 013 ed 07:36 URINE 04-12-2 6.0 UNK 5.0-8.5 complet PH 013 ed 07:36 URINE 04-12-2 NEGATIV NEG complet PROTEIN 013 E mg/dL ed - 07:36 DIPSTIC K URINE 12-24-2 0.2 NEG complet UROBILI 013 E.U./dL ed NOGEN - 07:36 DIPSTIC K URINE 12-24-2 NEGATIV NEG complet NITRATE 013 E ed - 07:36 DIPSTIC K URINE 12-2 NEGATIV NEG complet LEUK 013 E ed ESTERAS 07:36 E URINE 12-24-2 10-20 0 complet RBC 013 rbc/hpf ed 07:36 URINE 12-24-2 OCC O complet WBC 013 wbc/hpf ed 07:36 URINE 12-2 OCC OCC complet SQUAMOU 013 #/hpf ed S CELLS 07:36 Procedures Procedure DOS Code Location Performer Comment CT THORAX [address] [place] [facility] 7 MEDICAL W/[place] [address] [place] [facility]EN & 7 MEDICAL PELVIS IMAGING W/CONTRAS ASS T MATERIAL CONTINUOU E0601 GAYATHRI GAYATHRI S 7 HOME HOME POSITIVE MEDICAL MEDICAL AIRWAY EQUIPME EQUIPME PRESSURE DEVICE FILTER A7038 GAYATHRI TRINH DISPBL 7 HOME HOME USED MEDICAL MEDICAL W/POS EQUIPME EQUIPME ARWAY PRESSURE DEVICE FACE MASK A7031 GAYATHRI TRINH 7 HOME HOME INTERFACE MEDICAL MEDICAL REPLCMT EQUIPME EQUIPME FULL FACE MASK EA TUBING A7037 GAYATHRI TRINH USED WITH 7 HOME HOME POSITIVE MEDICAL MEDICAL AIRWAY EQUIPME EQUIPME PRESSURE DEVICE DRUG TEST 48560 ELENO JOHANSEN PRSMV 7 [facility] QUAL DIR INC INC OPTICAL OBS PER DAY CONTINUOU E0601 GAYATHRIBRENDAN TRINH S 7 HOME HOME POSITIVE MEDICAL MEDICAL AIRWAY EQUIPME EQUIPME PRESSURE DEVICE DRUG TEST 04464 ELENO JOHANSEN PRSMV 7 [facility] QUAL DIR INC INC OPTICAL OBS PER DAY CONTINUOU E0601 GAYATHRI TRINH S 7 HOME HOME POSITIVE MEDICAL MEDICAL AIRWAY EQUIPME EQUIPME PRESSURE DEVICE HEMOGLOBI 37944 ELENO JOHANSEN N 7 [facility] GLYCOSYLA INC INC ERICA A1C COMPREHEN 41954 ELENO JOHANSEN SIVE 7 [facility] METABOLIC INC INC PANEL COLLECTIO 77570 ELEON Rascon VENOUS 7 [facility] BLOOD INC INC VENIPUNCT URE CONTINUOU E0601 GAYATHRI GAYATHRI S 7 HOME HOME POSITIVE MEDICAL MEDICAL AIRWAY EQUIPME EQUIPME PRESSURE DEVICE HOSPITAL 53709 [facility] 7 PHYSICIAN DAY S GROUP MANAGEMEN T 30 MIN/< SBSQ 42944 [facility] 7 PHYSICIAN CARE/DAY S GROUP 15 MINUTES FINAL G9551 [facility] REPR ABD 7 MEDICAL IMAG STS IMAGING W/O ASS INCIDNT FND LES NTD: [place] [address] [facility] ABDOMEN & 7 MEDICAL PELVIS IMAGING W/O ASS CONTRAST MATERIAL FINAL G9638 [facility] REPORTS 7 MEDICAL W/O DOC IMAGING 1/MORE ASS DOSE REDUCTION TECH INITIAL 55001 [facility] 7 PHYSICIAN CARE/DAY S [place] [address] [place] [address] [facility] ABDOMEN & 7 MEDICAL PELVIS IMAGING W/O ASS CONTRAST MATERIAL CONTINUOU E0601 GAYATHRI TRINH S 7 HOME HOME POSITIVE MEDICAL MEDICAL AIRWAY EQUIPME EQUIPME PRESSURE DEVICE DRUG TST G0477 ELENO JOHANSEN PRESUMP;C [address] [facility] PBL BEING INC INC READ DC OPT OBV ONLY DRUG TEST G0481 ELENO JOHANSEN DEFINITV [address] [facility] DR ID INC INC METH P DAY 8-[address] [place] [address] NIVIA SALAS ABDOMEN & 6 MEDICAL PELVIS IMAGING W/O ASS CONTRAST MATERIAL POLYSOM 05046 ELENO JOHANSEN 6/>YRS 6 [facility] SLEEP INC INC W/CPAP 4/> ADDL DEMETRIUS ATTND CONTINUOU E0601 GAYATHRI TRINH S 6 HOME HOME POSITIVE MEDICAL MEDICAL AIRWAY EQUIPME EQUIPME PRESSURE DEVICE DRUG TEST G0481 ELENO JOHANSEN DEFINITV [address] [facility] DR ID INC INC METH P DAY 8-14 DRUG CL OPHTH 42463 DANNI DANNI MEDICAL 6 AYAH AYAH XM&EVAL COMPRE NEW PT 1/> VST HUMDIFIR E0562 GAYATHRI RAMONRELL HEATED 6 HOME HOME USED MEDICAL MEDICAL W/POS EQUIPME EQUIPME ARWAY PRESSURE DEVICE HEADGEAR A7035 GAYATHRI TRINH USED 6 HOME HOME W/POSITIV MEDICAL MEDICAL E AIRWAY EQUIPME EQUIPME PRESSURE DEVICE CONTINUOU E0601 GAYATHRI TRINH S 6 HOME HOME POSITIVE MEDICAL MEDICAL AIRWAY EQUIPME EQUIPME PRESSURE DEVICE FILTER A7039 GAYATHRI TRINH NON 6 HOME HOME DISPBL MEDICAL MEDICAL USED EQUIPME EQUIPME W/POS ARWAY PRESS DEVICE FULL FACE A7030 GAYATHRI TRINH MASK 6 HOME HOME USED MEDICAL MEDICAL W/POS EQUIPME EQUIPME 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 A7038 GAYATHRI TRINH DISPBL 6 HOME HOME USED MEDICAL MEDICAL W/POS EQUIPME EQUIPME ARWAY PRESSURE DEVICE TUBING A7037 GAYATHRI TRINH USED WITH 6 HOME HOME POSITIVE MEDICAL MEDICAL AIRWAY EQUIPME EQUIPME PRESSURE DEVICE DRUG TEST G0481 ELENO JOHANSEN DEFINITV [address] [facility] [address] [address] ID INC INC METH P DAY 8-14 DRUG CL SLEEP STD 83974 ELENO JOHANSEN AIRFLOW 6 [facility] HRT INC INC RATE&O2 SAT EFFORT UNATT IM ADM 52709 [facility] PRQ ID 6 PHYSICIAN JASMYNE SUBQ/IM S GROUP NJXS 1 VACCINE IIV 12901 [facility] ADJUVANTE 6 PHYSICIAN JASMYNE D VACCINE S GROUP FOR INTRAMUSC ULAR USE DRUG TST G0477 ELENO JOHANSEN PRESUMP;C 6 [facility] PBL BEING INC INC READ DC OPT OBV ONLY TECHNETIU A9503 ELENO Arthur TC-99M 6 [facility] MEDRONATE INC INC DX UP TO 30 MCI BONE 90272 [place] ALL &/JOINT 6 MEDICAL IMAGING IMAGING WHOLE ASS BODY COLLECTIO 07649 ELENO JOHANSEN N VENOUS 6 [facility] BLOOD INC INC VENIPUNCT URE COMPREHEN 96001 ELENO JOHANSEN SIVE 6 [facility] METABOLIC INC INC PANEL BLOOD 35183 ELENO JOHANSEN COUNT 6 [facility] COMPLETE INC INC AUTO&AUTO DIFRNTL WBC DRUG TST G0477 ELENO JOHANSEN PRESUMP;C 6 [facility] PBL BEING INC INC READ DC OPT OBV ONLY DRUG TEST G0481 ELENO JOHANSEN DEFINITV [address] [address] ID INC INC METH P DAY 8-14 [place] COMPREHEN 45289 ELENO JOHANSEN SIVE 6 [facility] [place] [address] [facility] ALL ABDOMEN & 6 MEDICAL PELVIS IMAGING W/[place] [address] [facility] [place] [place] [facility] ALL THORACIC 6 MEDICAL SPINE W/O IMAGING CONTRAST ASS MATERIAL INJECTION J1100 [facility] 6 PHYSICIAN JASMYNE DEXAMETHO S GROUP SONE SODIUM PHOSPHATE 1 MG DRUG TST G0477 ELENO JOHANSEN PRESUMP;C 6 [facility] PBL BEING INC INC READ DC OPT OBV ONLY DRUG TEST G0481 ELENO JOHANSEN DEFINITV [address] [facility] [address] [address] ID INC INC METH P DAY 8-14 DRUG CL THERAPEUT 91636 [facility] IC 6 PHYSICIAN JASMYNE PROPHYLAC S GROUP TIC/DX INJECTION SUBQ/IM DRUG TEST G0481 ELENO JOHANSEN DEFINITV [address] [facility] [address] ID INC INC METH P DAY 8-14 DRUG CL DRUG TST G0477 ELENO JOHANSEN PRESUMP;C 6 [facility] PBL BEING INC INC READ DC OPT OBV ONLY UNCLASSIF J3490 ELENO JOHANSEN IED DRUGS 6 [facility] INC INC BLOOD 59179 ELENO JOHANSEN COUNT 6 [facility] COMPLETE INC INC AUTO&[place] [address] ELENO JOHANSEN THYROID 6 [facility] STIMULATI INC INC NG HORMONE TSH COMPREHEN 76993 ELENO JOHANSEN SIVE 6 [facility] METABOLIC INC INC PANEL LOCM Q9967 ELENO JOHANSEN [phone] 6 [facility] MG/ML INC INC IODINE CONCENTRA TION PER ML CT THORAX 75245 ELENO JOHANSEN 6 [facility] W/CONTRAS INC INC T MATERIAL COLLECTIO 47481 ELENO JOHANSEN N VENOUS 6 [facility] [place] [address] ELENO JOHANSEN UREA 6 [facility] NITROGEN INC INC QUANTITAT MENG CREATININ 96676 ELENO ELENO E BLOOD 6 [facility] INC INC UNCLASSIF J3490 ELENO JOHANSEN IED DRUGS 6 [facility] INC INC LOCM Q9967 ELENO JOHANSEN [phone] 6 [facility] MG/ML INC INC IODINE CONCENTRA TION PER ML CT THORAX 65918 ELENO JOHANSEN 6 [facility] W/[place] [address] ELENO JOHANSEN ABDOMEN & 6 [facility] PELVIS INC INC W/CONTRAS T MATERIAL COMPREHEN 17128 ELENO JOHANSEN SIVE 6 [facility] METABOLIC INC INC PANEL BLOOD 99850 ELENO ELENO COUNT 6 [facility] COMPLETE INC INC AUTO&[place] [address] ELENO ELENO INFUSION [address] [facility] THERAPY/P INC INC ROPHYLAXI S /DX 1ST TO 1 HR BLOOD 12381 ELENO ELENO COUNT 6 [facility] COMPLETE INC INC AUTO&AUTO DIFRNTL WBC INJECTION J9299 ELENO JOHANSEN 6 [facility] NIVOLUMAB INC INC 1 MG CHEMOTX 58818 ELENO JOHANSEN ADMN IV [address] [facility] NFS TQ UP INC INC 1 HR SBST/DRUG BASIC 55390 ELENO JOHANSEN METABOLIC 6 [facility] PANEL INC INC CALCIUM TOTAL BLOOD 26658 ELENO JOHANSEN COUNT 6 [facility] COMPLETE INC INC AUTO&AUTO DIFRNTL WBC BLOOD 49225 ELENO JOHANSEN COUNT 6 [facility] COMPLETE INC INC AUTO&[place] [address] ELENO JOHANSEN LIPASE 6 [facility] INC INC COMPREHEN 91912 ELENO JOHANSEN SIVE 6 [facility] [address] ELENO JOHANSEN AMYLASE 6 [facility] INC INC BLOOD 73132 ELENO JOHANSEN COUNT 5 [facility] COMPLETE INC INC AUTO&AUTO DIFRNTL WBC COMPREHEN 68862 ELENO JOHANSEN SIVE 5 [facility]OLIC INC INC PANEL COLLECTIO 21313 [facility] [place] N VENOUS 5 [facility] [place] [address] ELENO JOHANSEN ABDOMEN & 5 [facility] PELVIS INC INC W/CONTRAS T MATERIAL CT THORAX 74927 [facility] 5 [facility] W/CONTRAS INC INC T MATERIAL CHEMOTX 40741 ELENO JOHANSEN ADMN IV 5 [facility] NFS TQ UP INC INC 1 HR SBST/DRUG BLOOD 89644 ELENO ELENO COUNT 5 [facility] COMPLETE INC INC AUTO&AUTO DIFRNTL WBC CHEMOTX 61870 ELENO [place] ADMN IV 5 [facility] NFS TQ UP INC INC 1 HR SBST/DRUG BLOOD 91440 [facility]ANSEN COUNT 5 [facility] COMPLETE INC INC AUTO&AUTO DIFRNTL WBC COMPREHEN 70734 [facility] SIVE 5 [facility] METABOLIC INC INC PANEL BLOOD 27936 EL[facility] J[facility]ANSEN COUNT 5 [facility] COMPLETE INC INC AUTO&AUTO DIFRNTL WBC CHEMOTX 65700 ELENO [place] ADMN IV 5 [facility] NFS TQ UP INC INC 1 HR SBST/DRUG IM ADM [id number] [facility] PRQ ID 5 PHYSICIAN JASMYNE SUBQ/IM S GROUP NJXS 1 VACCINE IIV3 [id number] [facility] VACCINE 5 PHYSICIAN JASMYNE SPLIT S GROUP VIRUS 0.5 ML DOSAGE IM USE CHEMOTX 62532 ELENO ELENO ADMN IV 5 [facility] NFS TQ UP INC INC 1 HR SBST/DRUG COLLECTIO 24880 EL[facility] JOHANSEN N VENOUS 5 [facility] BLOOD INC INC VENIPUNCT URE CT THORAX 89567 [place] [facility] 5 MEDICAL W/[place] [address] [place] ABDOMEN 5 MEDICAL W/CONTRAS IMAGING T ASS MATERIAL BLOOD 97903 [facility]ANSEN COUNT 5 [facility] COMPLETE INC INC AUTO&AUTO DIFRNTL WBC COMPREHEN 39767 [facility] SIVE 5 [facility] METABOLIC INC INC PANEL LOCM Q9967 ELENO JOHANSEN [phone] [facility] MG/ML INC INC IODINE CONCENTRA TION PER ML BLOOD 03669 EL[facility] JOHANSEN COUNT 5 [facility] COMPLETE INC INC AUTO&AUTO DIFRNTL WBC [place] 34259 ELENO JOHANSEN ADMN IV 5 [facility] NFS TQ UP INC INC 1 HR SBST/DRUG CHEMOTX 18446 ELENO JOHANSEN ADMN IV 5 [facility] NFS TQ UP INC INC 1 HR / SBST/DRUG BLOOD 10995 EL[facility] JOHANSEN COUNT 5 [facility] COMPLETE INC INC AUTO&AUTO DIFRNTL WBC BLOOD 98248 ELENO JOHANSEN COUNT 5 [facility] COMPLETE INC INC AUTO&AUTO DIFRNTL WBC COMPREHEN 47350 [facility] SIVE 5 [facility] METABOLIC INC INC PANEL CHEMOTX 49660 ELENO JOHANSEN ADMN IV 5 [facility] NFS TQ UP INC INC 1 HR SBST/DRUG [place]X 60401 ELENO JOHANSEN ADMN IV 5 [facility] NFS TQ UP INC INC 1 HR SBST/DRUG COLLECTIO 38397 ELENO JOHANSEN N VENOUS 5 [facility] BLOOD INC INC VENIPUNCT URE CHEMOTHER 98169 ELENO JOHANSEN APY ADMN 5 [facility] IV INC INC INFUSION TQ EA HR COMPREHEN 99809 EL[facility] JOHANSEN SIVE 5 [facility] METABOLIC INC INC PANEL BLOOD 97234 ELENO JOHANSEN COUNT 5 [facility] COMPLETE INC INC AUTO&AUTO DIFRNTL WBC LOCM Q9967 ELENO JOHANSEN [phone] 5 [facility] MG/ML INC [place] [address] [place] [facility] ALL ABDOMEN & 5 MEDICAL PELVIS IMAGING W/CONTRAS ASS T MATERIAL CT THORAX 34285 [place] [facility] ALL 5 MEDICAL W/CONTRAS IMAGING T ASS MATERIAL COLLECTIO 83188 ELENO [facility] N VENOUS 5 [facility] [place] [address] ELENO JOHANSEN AMYLASE 5 [facility] INC INC BLOOD 78525 EL[facility] JOHANSEN COUNT 5 [facility] COMPLETE INC INC AUTO&[place] [address] ELENO [facility] LIPASE 5 [facility] INC INC COMPREHEN 21762 ELENO ELENO SIVE 5 [facility] METABOLIC INC INC PANEL BLOOD 06441 ELENO ELENO COUNT 5 [facility] COMPLETE INC INC AUTO&AUTO DIFRNTL WBC COMPREHEN 55138 ELENO ELENO SIVE 5 [facility] METABOLIC INC INC PANEL COLLECTIO 88289 ELENO JOHANSEN N VENOUS 5 [facility] [place] [address] ELENO ELENO ERYTHROPO [address] [facility] [place] [address] [place] ABDOMEN & 5 MEDICAL SHELIA PELVIS IMAGING W/O ASS CONTRAST MATERIAL HOSPITAL [address] [facility] 5 CARE R H DAY ASSOCIATE MANAGEMEN S T 30 MIN/< SBSQ 80477 [place] [address] CARE R H CARE/DAY ASSOCIATE 15 S MINUTES INITIAL 28228 [facility] SRINIVAS TOD INPATIENT 5 PHYSICIAN CONSULT S GROUP NEW/ESTAB PT 55 MIN INITIAL [address]805 [place] [address] CARE R H CARE/DAY ASSOCI[place] [address] [place] [address] [place] [facility] ALL ABDOMEN & 5 MEDICAL PELVIS IMAGING W/O ASS CONTRAST MATERIAL RADEX 20897 ELENO JOHANSEN SPINE 5 [facility] CERVICAL INC INC 4 OR 5 VIEWS RADEX 33792 ELENO JOHANSEN SPINE 5 [facility] LUMBOSACR INC INC AL MINIMUM 4 VIEWS HOSPITAL [address] [facility] 5 CARE R H DAY ASSOCIATE MANAGEMEN S T 30 MIN/< SBSQ 14367 [facility] 5 CARE R H CARE/DAY ASSOCIATE [address] THORAX 58684 [place] W/O 5 MEDICAL SHELIA CONTRAST IMAGING MATERIAL ASS INITIAL 02241 [facility] 5 CARE R H CARE/DAY ASSOCIATE 50 S MINUTES INITIAL 69218 [facility] SRINIV[facility] TOD INPATIENT 5 PHYSICIAN CONSULT S GROUP NEW/ESTAB [place] [address] [place] [address] [place] ABDOMEN & 5 [facility] SHELIA PELVIS IMAGING W/CONTRAS ASS T MATERIAL ECG 79547 [facility] ROUTINE 4 JOSE F IMT ECG EMERGENCY W/LEAST PHYS 12 LDS I&R ONLY LIPID 79414 ihijiES RANDALL PANEL 4 URINLS 50508 [employer] HARSHAD RANDALL DIP 4 STICK/TAB LET REAGNT NON-AUTO MICRSCPY METANEPHR 87812 [facility] 4 DIAGNOSTI DIAGNOSTI CS CS LOCM Q9967 [facility] JOHANSEN [phone] [facility] MG/ML INC INC IODINE CONCENTRA TION PER ML CT THORAX 58209 [facility] JOHANSEN 4 [facility] W/[place] [address] DANA DANA ABDOMEN & 4 SHELIA SHELIA PELVIS W/O CONTRAST MATERIAL Encounters Encounter Start End Date Code Location Performer Type Date OFFICE 25002 [facility] 7 7 PHYSICIAN T VISIT S GROUP 15 MINUTES OFFICE 84132 [facility] 7 7 PHYSICIAN T [facility]ISIT S GROUP 25 [facility]UTES [facility] T OFFICE 86286 [facility] 7 7 PHYSICIAN T VISIT S GROUP 25 [facility]UTES [facility] T OFFICE 33275 [facility] 7 7 PHYSICIAN T VISIT S GROUP 25 MINUTES [facility] T OFFICE 44962 [facility] 7 7 PHYSICIAN T VISIT S GROUP 25 MINUTES [facility] 7 [facility] INPATIENT INC EMERGENCY 43631 DANAY LLAMAS DEPT 7 7 PHYSICIAN VISIT S, [facility] HIGH SEVERITY& THREAT [facility] OFFICE 64178 [facility] SMITH OUTPATIEN 6 6 [facility]ISIT 5 HOSPITAL MINUTES P OFFICE 03863 [facility] 6 6 PHYSICIAN T VISIT S GROUP 15 MINUTES [facility] 6 [facility] 13788 DANAY WHIPPLE DEPT 6 6 PHYSICIAN VISIT S, [facility] HIGH SEVERITY& THREAT [facility] - 6 6 [facility]IEN [facility] - 6 6 [facility] T OFFICE 12311 [facility] 6 6 PHYSICIAN JASMYNE T [facility]ISIT S GROUP 15 MINUTES [facility] 6 6 [facility] - 6 6 [facility] T OFFICE 10276 [facility] 6 6 PHYSICIAN JASMYNE T VISIT S GROUP 15 MINUTES OFFICE 56124 [facility] SMITH OUTPATIEN 6 6 [facility] T VISIT HOSPITAL 10 P MINUTES [facility] - 6 6 [facility] - 6 6 [facility]PATI[facility] INC T OFFICE 14532 [facility] SMITH OUTPATIEN 6 6 [facility] T VISIT HOSPITAL 15 P MINUTES OFFICE 34776 [facility] 6 6 PHYSICIAN JASMYNE T VISIT S GROUP 15 MINUTES [facility] 6 6 [facility] 6 6 [facility] INC T OFFICE 10782 [facility] 6 6 PHYSICIAN JASMYNE T VISIT 5 S GROUP MINUTES EMERGENCY 50596 [facility] DEPT 6 6 PHYSICIAN JASMYNE VISIT S, [facility] HIGH SEVERITY& THREAT [facility] - 6 6 [facility] OUTPATIEN INC T OFFICE 46342 [facility] 6 6 PHYSICIAN JASMYNE T VISIT S GROUP 15 MINUTES [facility] - 6 6 [facility] INC T OFFICE 15625 [facility] SMITH OUTPATIEN 6 6 [facility] T [facility] 10 P MINUTES [facility] - 6 6 [facility]PATIEN INC T OFFICE 93096 [facility] 6 6 PHYSICIAN JASMYNE T VISIT S GROUP 15 MINUTES OFFICE 43478 [facility] 6 6 PHYSICIAN JASMYNE T VISIT S GROUP 10 MINUTES OFFICE 90205 [facility] SMITH OUTPATIEN 6 6 [facility] T VISIT HOSPITAL 10 P MINUTES OFFICE 00623 [facility] 6 6 PHYSICIAN JASMYNE T VISIT S GROUP 10 MINUTES [facility] 6 6 [facility] - 6 6 [facility]PAT[facility] INC T OFFICE 40800 [facility] SMITH OUTPATIEN 6 6 [facility]IS[facility] 10 P [facility] - 6 6 [facility] - 6 6 [facility]PATIEN INC T OFFICE 83562 [facility] 6 6 PHYSICIAN JASMYNE T VISIT S GROUP 10 MINUTES OFFICE 12772 [facility] SMITH OUTPATIEN 6 6 [facility] 10 P [facility] - 6 6 [facility]PATIEN [facility] - 6 6 [facility] OUTPATIEN INC T OFFICE 46829 [facility] SMITH OUTPATIEN 6 6 [facility] 10 P MINUTES OFFICE 67468 [facility] 6 6 PHYSICIAN JASMYNE T VISIT S GROUP 15 MINUTES [facility] - 6 6 [facility] OUTPATIEN INC T OFF[facility] 54362 [facility] SMITH OUTPATIEN 5 5 [facility] 10 P [facility] - 5 5 [facility]EN [facility] - 5 5 [facility]PATIEN INC T OFFICE 62714 [facility] 5 5 PHYSICIAN JASMYNE T VISIT S GROUP 10 MINUTES [facility] - 5 5 [facility]EN [facility] - 5 5 [facility] OUTPATIEN INC T OFFICE 55541 [facility] SMITH OUTPATIEN [address] [facility] 5 HOSPITAL MINUTES [facility] - 5 5 [facility]PATIEN INC T OFFICE 46994 [facility] 5 5 PHYSICIAN JASMYNE T VISIT S GROUP 10 MINUTES [facility] - 5 5 [facility]PATIEN INC T OFFICE 67927 [facility] SMITH OUTPATIEN 5 5 [facility] T VISIT HOSPITAL 10 P MINUTES [facility] - 5 5 [facility] INC [facility] 5 5 [facility] INC T OFFICE 33782 [facility] 5 5 PHYSICIAN JASMYNE T VISIT S GROUP 25 MINUTES [facility] - 5 5 [facility]PATIEN INC T OFFICE 74892 [facility] SMITH OUTPATIEN 5 5 [facility] T VISIT 5 HOSPITAL MINUTES P [facility] - 5 5 [facility] OUTPATIEN INC T OFFICE 73747 [facility] 5 5 PHYSICIAN JASMYNE T VISIT S GROUP 10 MINUTES [facility] - 5 5 [facility] INC T OFFICE 57628 [facility] SMITH OUTPATIEN 5 5 [facility] T VISIT 5 HOSPITAL MINUTES P OFFICE 44166 [facility] 5 5 PHYSICIAN JASMYNE T VISIT S GROUP 15 MINUTES OFFICE 53409 [facility] SMITH OUTPATIEN 5 5 [facility] T VISIT HOSPITAL 10 P MINUTES OFFICE 78873 [facility] SRINIVAS TOD OUTPATIEN 5 5 PHYSICIAN T VISIT S GROUP 15 MINUTES [facility] - 5 5 [facility]PATI[facility] INC T OFFICE 81124 [facility] SRIINVAS TOD OUTPATIEN 5 5 PHYSICIAN T VISIT S GROUP 15 MINUTES [facility] - 5 5 [facility] INC T OFFICE 20862 [facility] 5 5 PHYSICIAN JASMYNE T VISIT S GROUP 15 MINUTES OFFICE 36536 [facility] OUTPATIEN 5 5 [facility] VISIT HOSPITAL 10 P MINUTES [facility]OSP[facility] [facility] [address] [facility] OUTPATIEN INC T EMERGENCY 86566 [facility] DEPT 5 5 PHYSICIAN JASMYNE VISIT S, [facility] HIGH SEVERITY& THREAT FUNJ OFFICE 57242 [facility] SR[facility]IV[facility] TOD OUTPATIEN 5 5 PHYSICIAN T VISIT S GROUP 15 MINUTES OFFICE 70152 [facility]EL[facility] OUT[facility] 5 5 [facility] 45 HOSPITAL MINUTES P EMERGENCY 91232 DANAY [facility] DEPT 5 5 PHYSICIAN JASMYNE VISIT S, [facility] HIGH SEVERITY& THREAT [facility] [place] - [address] [facility] OUTPATIEN INC T OFFICE 88598 ZACK JABARI OUTPATIEN 5 5 [facility] T VISIT URGENT 25 TREAT MINUTES OFFICE 07086 [facility] SRINIV[facility] TOD OUTPATIEN 5 5 PHYSICIAN T VISIT S GROUP 15 MINUTES EMERGENCY 04983 [facility] LLAMAS [address] [facility] T VISIT P HIGH/URGE NT SEVERITY [facility] - [address] [facility] INPATIENT INC EMERGENCY 22843 [facility] 4 4 [facility] EMERGENCY T VISIT PHYS MODERATE SEVERITY [facility] 99166 [facility] EM[facility] T VISIT PHYS HIGH/URGE NT SEVERITY OFFICE 03486 HARSHAD RANDALL [facility] OUTPATIEN 4 4 T VISIT 15 MINUTES OFFICE 85564 HARSHAD RANDALL [facility] OUTPATIEN 4 4 T VISIT 15 MINUTES OFFICE 42738 HARSHAD RANDALL [facility] OUTPATIEN 4 4 T VISIT 25 MINUTES [facility] 4 4 [facility] T OFFICE 29008 HARSHAD RANDALL HARSHAD RANDALL OUTPATIEN 4 4 T VISIT 25 MINUTES EMERGENCY 47195 SUAMN WILL DEPT 4 4 [facility] VISIT HIGH SEVERITY& THREAT FUNJ EMERGENCY 26926 ZENAIDA RANDALL ZENAIDA RANDALL 4 4 DEPARTMEN T VISIT MODERATE SEVERITY Inpatient ILEANA Fields MD (IN) 4 10:57 4 12:45 [facility] Emergency KEEGAN WILL MD (ER) 4 08:06 4 09:20 [facility] Emergency KEEGAN Ramirez (ER) 3 15:40 3 17:05 [facility] Emergency KEEGAN Bronson MD (ER) 3 21:14 3 21:51 [facility] Emergency KEEGAN Ramirez (ER) 3 12:15 3 15:53 [facility] E. Inpatient ILEANA Sharma MD (IN) 3 08:44 3 09:40 [facility] Emergency KEEGAN Sanchez MD (ER) 3 08:10 3 09:[address] [facility]
--- OUTSIDE RECORDS SUMMARY | 2017-04-25 17:51 | External Medical Summary Rpt ---
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 Name Role Phone ALFARIS MOH, ALFARIS Unavailable [...] Unavailable FARHAD JASMYNE, FARHAD Unavailable Unavailable JASMYNE [facility] Unavailable Unavailable INC, [facility] Unavailable Unavailable HOSPITAL P, [facility] P [facility], Unavailable Unavailable [facility] WHIPPLE, WHIPPLE Unavailable Unavailable JABARI NAN, JABARI Unavailable Unavailable NAN FRANCIS IMT, FRANCIS Unavailable Unavailable IMT [facility] Unavailable Unavailable [facility], [facility] Ninoska Bronson MD, Unavailable Unavailable Ninoska Bronson MD HARSHAD RANDALL, HARSHAD RANDALL Unavailable Unavailable HARSHAD RANDALL, HARSHAD RANDALL Unavailable Unavailable [facility] Unavailable Unavailable URGENT TREAT, [facility] [place] He, Unavailable Unavailable [...] Unavailable Unavailable EQUIPME, [facility] Unavailable Unavailable EMERGENCY PHYS, [facility] Javier Fields MD, Unavailable Unavailable Javier Fields MD [facility] # Unavailable Unavailable [id number], [facility] # [id number] Cornel Ramirez Unavailable Unavailable CARMINA PIEDRA, Cornel Ramirez III, MD Purpose Continuity of Care Document - 12-24-2012 through 2016 Problems Code Diagnosis DOS Provider Status C649 MALIGNANT 02-06-2017 [place] NEOPLASM MEDICAL UNS KIDNEY IMAGING ASS EXCEPT RENL PELVIS K5730 DIVERTICULO 02-06-2017 [place] SIS LG MEDICAL INTEST W/O IMAGING ASS PERF/ABSC W/O BLEED R590 LOCALIZED 02-06-2017 [place] ENLARGED MEDICAL LYMPH NODES IMAGING ASS R911 SOLITARY 02-06-2017 [place] PULMONARY MEDICAL NODULE IMAGING ASS E119 TYPE 2 02-03-2017 [facility] DIABETES PHYSICIANS MELLITUS GROUP WITHOUT COMPLICATIO NS I10 ESSENTIAL 02-03-2017 [facility] PRIMARY PHYSICIANS HYPERTENSIO GROUP N [id number] OTHER LONG 02-03-2017 [facility] TERM PHYSICIANS CURRENT GROUP DRUG THERAPY G4733 OBSTRUCTIVE 01-19-2017 [facility] SLEEP HOME APNEA ADULT MEDICAL PEDIATRIC EQUIPME J40 BRONCHITIS 10-06-2016 [facility] NOT PHYSICIANS SPECIFIED GROUP ACUTE OR CHRONIC C7989 SECONDARY 09-22-2016 [facility] NEOPLASM INC OTH SPECIFIED SITES E118 TYPE 2 09-22-2016 [facility] DIABETES PHYSICIANS MELLITUS GROUP W/UNS COMPLICATIO NS E871 HYPO-OSMOLA 09-22-2016 [facility] LITY AND PHYSICIANS HYPONATREMI GROUP A K8590 ACUTE 09-22-2016 [facility] PANCREATITI PHYSICIANS S WO GROUP NECROSIS/IN FECTION UNSPEC Z720 TOBACCO USE 09-22-2016 [facility] C641 MALIGNANT 09-21-2016 [facility] NEOPLASM RT PHYSICIANS, KIDNEY PLLC EXCEPT RENAL PELVIS K8580 OTHER ACUTE 09-21-2016 [facility] PHYSICIANS, PANCREATITI PLLC S WO NECROSIS/IN FECTION R1032 LEFT LOWER 09-21-2016 [facility] PAIN IMAGING ASS R109 UNSPECIFIED 09-21-2016 [place] ABDOMINAL MEDICAL PAIN IMAGING ASS R110 NAUSEA 09-21-2016 [facility] M47560 PERSONAL 09-21-2016 [place] HISTORY MEDICAL OTHER IMAGING ASS MALIGNANT NEOPLASM KIDNEY K5731 DIVERTICULO 09-03-2016 [facility] SIS LG PHYSICIANS, INTEST W/O PLLC PERF/ABSC W/BLEED R1031 RIGHT LOWER 09-03-2016 [facility] G4713 RECURRENT 08-27-2016 [facility] HYPERSOMNIA PHYSICIANS GROUP J984 OTHER 08-27-2016 [facility] DISORDERS PHYSICIANS OF LUNG GROUP H527 UNSPECIFIED 07-28-2016 DANNI AYAH DISORDER OF REFRACTION Z23 ENCOUNTER 06-16-2016 [facility] FOR PHYSICIANS IMMUNIZATIO GROUP N M546 PAIN IN 05-13-2016 [place] THORACIC MEDICAL SPINE IMAGING ASS Z905 ACQUIRED 05-13-2016 [place] ABSENCE OF MEDICAL KIDNEY IMAGING ASS G4730 SLEEP APNEA 04-30-2016 [facility] PHYSICIANS UNSPECIFIED GROUP M7711 LATERAL 04-30-2016 [facility] EPICONDYLIT PHYSICIANS IS RIGHT GROUP ELBOW E875 HYPERKALEMI 04-24-2016 [facility] A PHYSICIANS GROUP 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 [place] ADRENAL MEDICAL GLAND IMAGING ASS UNSPECIFIED 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 E785 HYPERLIPIDE 03-18-2016 [facility] KEYON PHYSICIANS UNSPECIFIED GROUP C7800 SECONDARY 02-18-2016 [facility] MALIGNANT [facility] NEOPLASM OF HOSPITAL P UNSPECIFIED LUNG C7970 SECONDARY 02-18-2016 [facility] NEOPLASM HOSPITAL P UNS ADRENAL GLAND J302 OTHER 02-18-2016 [facility] SEASONAL PHYSICIANS ALLERGIC GROUP RHINITIS R918 OTHER 02-14-2016 [place] NONSPECIFIC MEDICAL ABNORMAL IMAGING ASS FINDING OF LUNG FIELD R739 HYPERGLYCEM 10-19-2015 [facility] IA PHYSICIANS UNSPECIFIED GROUP Z5111 ENCOUNTER 10-10-2015 [facility] P TIC CHEMOTHERAP Y Z5181 ENCOUNTER 08-22-2015 [facility] THERAPEUTIC [facility] DRUG LEVEL MONITORING N281 CYST OF 06-29-2015 [place] KIDNEY MEDICAL ACQUIRED IMAGING ASS 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 OF OPIATE GROUP ANALGESIC 1890 MALIGNANT 06-04-2015 [facility] NEOPLASM [facility] KIDNEY INC EXCEPT PELVIS V5811 ENCOUNTER 06-04-2015 [facility] ANTINEOPLAS [facility] TIC CHEMOTHERAP Y V5869 LONG-TERM 05-15-2015 [facility] (CURRENT) PHYSICIANS USE OF GROUP OTHER MEDICATIONS 35928 OVERWEIGHT 04-23-2015 [facility] GROUP 4019 UNSPECIFIED 04-23-2015 [facility] ESSENTIAL PHYSICIANS HYPERTENSIO GROUP N 09958 DIVERTICULI 04-23-2015 [facility] TIS OF PHYSICIANS COLON GROUP 40481 DIVERTICULI 04-11-2015 [facility] TIS OF PHYSICIANS COLON WITH GROUP HEMORRHAGE 76382 ABDOMINAL 04-11-2015 [facility] PAIN, LEFT PHYSICIANS LOWER GROUP QUADRANT 64308 ABDOMINAL 04-11-2015 [facility] PAIN, PHYSICIANS PERIUMBILIC GROUP 70045 ABDOMINAL 04-11-2015 [facility] PAIN OTHER PHYSICIANS SPECIFIED GROUP SITE V1052 PERSONAL 04-11-2015 [facility] HISTORY OF PHYSICIANS MALIGNANT GROUP NEOPLASM OF KIDNEY 2559 UNSPECIFIED 04-06-2015 [place] DISORDER MEDICAL OF ADRENAL IMAGING ASS GLANDS 5180 PULMONARY 04-06-2015 [facility] COLLAPSE MEDICAL IM[facility] ASS 09659 UNSPEC 04-06-2015 [place] VENTRAL MEDICAL LUIS W/O IMAGING ASS MENTION OBST/GANGRE N 7856 ENLARGEMENT 04-06-2015 [place] OF LYMPH MEDICAL NODES IMAGING ASS 22774 ABDOMINAL 04-06-2015 [facility] PAIN, [facility] UNSPECIFIED INC SITE 79173 OTHER 04-06-2015 [place] NONSPECIFIC MEDICAL ABNORMAL IMAGING ASS FINDING OF LUNG FIELD 2724 OTHER AND 03-23-2015 [facility] UNSPECIFIED PHYSICIANS GROUP HYPERLIPIDE KEYON V4573 ACQUIRED 02-28-2015 [place] ABSENCE OF MEDICAL KIDNEY IMAGING ASS 2357 NEOPLASM 02-07-2015 [facility] P TRACH BRONCHUS&STEFANI NG 7231 CERVICALGIA 01-25-2015 [facility] 7245 UNSPECIFIED 01-25-2015 [place] BACKACHE [facility]ICAL [facility] 32650 DIVERTICULO 01-24-2015 [facility] COLON URGENT TREAT 5770 ACUTE 01-24-2015 [facility] PANCREATITI [facility] URGENT T[facility] 7242 LUMBAGO 01-24-2015 [facility] URGENT TREAT 12810 LEUKOCYTOSI 01-10-2015 [facility] S PHYSICIANS UNSPECIFIED GROUP 4011 ESSENTIAL 01-10-2015 [facility] HYPERTENSIO PHYSICIANS N, BENIGN GROUP 56354 COR 01-10-2015 [facility] ATHEROSLERO PHYSICIANS UNSPEC GROUP TYPE VESSEL [place] AK/NONA T 7880 RENAL COLIC 01-09-2015 [facility] 7881 DYSURIA 01-09-2015 [facility] 06349 SOLITARY 01-09-2015 [facility] PULMONARY [facility] NODULE INC 4739 UNSPECIFIED 07-18-2014 [facility] SINUSITIS N EMERGENCY PHYS 47880 PAIN IN 07-18-2014 [facility] JOINT, N EMERGENCY ANKLE AND PHYS FOOT 53238 TENOSYNOVIT 07-18-2014 [facility] IS OF FOOT N EMERGENCY AND ANKLE PHYS 5990 URINARY 06-16-2014 [facility] TRACT N EMERGENCY INFECTION PHYS SITE NOT SPECIFIED 7804 DIZZINESS 06-16-2014 [facility] AND N EMERGENCY GIDDINESS PHYS 27103 GENERALIZED 05-06-2014 HARSHAD RANDALL ANXIETY DISORDER 7248 OTHER 03-23-2014 HARSHAD RANDALL SYMPTOMS REFERABLE TO BACK 2374 NEOPLASM 02-21-2014 [facility] V OTH&UNSPEC ENDOCRN GLANDS 7840 HEADACHE 02-21-2014 [facility] 73139 DIARRHEA 02-21-2014 HARSHAD RANDALL 2359 NEOPLASM 02-16-2014 [facility] BEHAVIOR INC OTH&UNSPEC RESP ORGN 5932 ACQUIRED 02-06-2014 [facility] CYST OF SHELIA KIDNEY 5939 UNSPECIFIED 02-06-2014 [facility] DISORDER SHELIA OF KIDNEY AND URETER 462 ACUTE 02-01-2014 ZENAIDA RANDALL PHARYNGITIS 272.1 272.1 PURE 10-08-2013 [facility] HYPERGLYCER [facility] IDEMIA Hospital 305.1 305.1 10-08-2013 [facility] TOBACCO USE [facility] DISORDER Hospital 577.0 577.0 ACUTE 10-08-2013 [facility] PANCREATITI [facility] S V10.53 V10.53 PER 10-08-2013 [facility] MALIGN [facility], [facility] RENAL PELVIS V16.9 V16.9 10-08-[address] [facility] CY NOS V17.3 V17.3 FAM [facility]-08[facility] HE[facility] DIS Hospital V18.0 V18.0 FAM 10-08-2013 [facility] MELLITUS [facility] 274.01 274.01 05-10-2013 [facility] ACUTE [facility] ARTHROPATHY 577.1 577.1 05-10-2013 [facility] CHRONIC [facility] PANCREATITI [facility] S 455.0 455.0 INT 02-10-2013 [facility] HEMORRHOID [facility] W/O COMPL Hospital 562.10 562.10 02-10-2013 [facility] DIVERTICULO [facility] COLON [facility] (W/O MENT OF HEMORRHAGE) 569.3 569.3 02-10-2013 [facility] RECTAL & [facility] HEMORRHAGE 789.00 789.00 02-10-2013 [facility] ABDOMINAL [facility], [facility] UNSPECIFIED SITE 272.4 272.4 01-15-2013 [facility] HYPERLIPIDE [facility] KEYON NEC/NOS Hospital 560.1 560.1 01-15-2013 [facility] PARALYTIC [facility] ILEUS [facility] V45.73 V45.73 01-15-2013 [facility] ACQRD [facility] ABSENCE OF Hospital KIDNEY 789.06 789.06 12-24-2012 [facility] ABDOMINAL [facility] PAIN, [facility] EPIGASTRIC C64.9 MALIGNANT NEOPLASM OF UNSP [...] SPECIFIED R10.9 UNSPECIFIED ABDOMINAL PAIN Z79.899 OTHER [facility] (CURRENT) DRUG THERAPY Allergies, Adverse Reactions, Alerts Type Drug Allergy Adverse Reaction to Substance Substance Reaction Severity Penicillin Q-[id number]-YMKU/THROAT Severe Clinical Alert Notifications Alert Diabetes: no [...] ve LO 52 20 20 48 RT RI 05 17 17 95 AM 4 46 PH AR 20 MA CY MG #5 TA 91 BL ET FL 60 05 06 16 30 00 WA Ac UT 43 -2 -3 .0 00 L- ti IC 20 8- 0- 00 07 MA ve 26 20 20 48 RT ON 41 17 17 95 E 5 47 PH RI AR OP MA CY 50 #5 MC 91 G SP RA Y ME 68 05 06 60 30 00 TN Ac TF 64 -2 -3 .0 00 L- ti OR 50 8- 0- 00 07 MA ve TN 54 20 20 48 RT N 55 17 17 95 HC 9 49 PH L AR 1, MA 00 CY 0 MG #5 91 TA BL ET AT 00 05 30 30 00 TN Ac EN 78 -2 -3 .0 00 L- ti OL 11 8- 0- 00 07 MA ve OL 07 20 20 48 RT 80 17 17 95 25 1 44 PH AR MG MA CY TA BL #5 ET 91 CY 68 05 03 13 30 00 TN Ac CL 64 -2 -3 .0 00 L- ti OB 50 8- 0- 00 07 MA ve EN 51 20 20 48 RT ZA 89 17 17 95 RI 0 45 PH IN AR E MA 10 CY MG #5 91 TA BL ET AL 16 01 17 30 30 00 TN Ac LO 71 -2 -3 .0 00 L- ti PU 40 8- 0- 00 07 MA ve RI 04 20 20 48 RT NO 10 17 17 95 L 7 43 PH 10 AR 0 MA MG CY TA #5 BL 91 ET LO 68 05 30 30 00 TN Ac SA 64 -2 -2 .0 00 L- ti RT 50 3- 3- 00 07 MA ve AN 40 20 20 48 RT 75 17 17 95 PO 4 48 PH TA AR SS MA IU CY M 25 #5 91 MG TA B OM 60 05 30 30 00 TN Ac EP 50 -2 -2 .0 00 L- ti RA 53 3- 3- 00 07 MA ve ZO 95 20 20 48 RT LE 20 17 [address] AR MA 20 CY MG #5 91 CA PS UL E GA 53 05 90 30 00 TN Ac BA 74 -2 -2 .0 00 L- ti PE 60 3- 3- 00 07 MA ve NT 10 20 20 48 RT IN 10 17 17 95 5 52 PH 10 AR 0 MA MG CY CA #5 PS 91 UL E OX 00 05 90 30 00 TN Ac YC 40 -2 -2 .0 00 L- ti OD 60 3- 3- 00 02 MA ve ON 52 20 20 24 RT E- 30 17 17 04 AC 1 42 PH ET AR AM MA IN CY OP HE #5 N 91 10 -3 25 RI 54 05 30 30 00 WA Ac [...] ve LO 52 20 20 41 RT RI 05 17 17 81 AM 4 82 PH AR 20 MA CY MG #5 TA 91 BL ET LI 54 04 03 13 30 00 WA Ac SI 45 -2 -0 .0 00 L- ti NO 80 8- 2- 00 07 MA ve RI 99 20 20 47 RT IL 91 [...] 50 1- 2- 00 07 MA ve TN 54 20 20 48 RT N 55 17 17 54 HC 9 56 PH L AR 1, MA 00 CY 0 MG #5 91 TA BL ET CY 68 05 30 30 00 WA Ac CL 64 -0 -0 .0 00 L- ti OB 50 1- 2- 00 07 MA ve EN 51 20 20 48 RT ZA 89 17 17 54 RI 0 57 PH IN AR E MA 10 CY MG #5 91 TA BL ET FL 60 05 16 30 00 WA Ac UT 43 -0 -0 .0 00 L- ti IC 20 1- 2- 00 07 MA ve 26 20 20 48 RT ON 41 17 17 54 E 5 88 PH RI AR OP MA CY 50 #5 MC [...] HE #5 N 91 10 -3 25 RI 54 04 05 30 30 00 WA [...] 17 17 53 E 5 94 PH RI AR OP MA CY 50 #5 MC 91 G SP RA Y LI 68 03 04 30 30 00 WA Ac SI 18 -2 -2 .0 00 L- ti NO 00 7- 8- 00 07 MA ve RI 51 20 20 47 RT IL 20 [...] 50 7- 8- 00 07 MA ve TN 54 20 20 47 RT N 55 [...] ve LO 52 20 20 47 RT RI 05 17 17 87 AM 4 72 [...] 47 RT ZA 89 17 17 90 RI 0 45 PH IN AR E MA 10 CY MG #5 91 TA BL ET RI 54 03 30 30 00 WA Ac [...] 50 4- 1- 00 07 MA ve TN 54 20 20 47 RT N 55 [...] ve LO 52 20 20 46 RT RI 05 17 17 08 AM 4 69 [...] 47 RT ZA 89 17 17 32 RI 0 32 PH IN AR E MA 10 CY MG #5 91 TA BL ET RI 00 02 03 30 30 00 WA [...] 17 17 53 E 5 94 PH RI AR OP MA CY 50 #5 MC 91 G SP RA Y CY 68 01 02 30 30 00 WA Ac CL 64 -2 -2 .0 00 L- ti OB 50 3- 4- 00 07 MA ve EN 51 20 20 46 RT ZA 89 17 17 08 RI 0 68 PH IN AR E MA [...] ES 68 01 02 30 30 00 TN Ac CI 64 -2 -2 .0 00 L- ti TA 50 3- 4- 00 07 MA ve LO 52 20 20 46 RT RI 05 17 17 08 AM 4 69 PH AR 20 MA CY MG #5 TA 91 BL ET ME 23 01 02 60 30 00 WA Ac TF 15 -2 -2 .0 00 L- ti OR 50 3- 4- 00 07 MA ve TN 10 20 20 46 RT N 41 17 17 63 HC 0 10 PH L AR 1, MA 00 CY 0 MG #5 91 TA BL ET AZ 59 01 02 6. 5 00 TN Ac IT 76 -2 -2 00 00 L- ti HR 23 3- 4- 0 07 MA ve OM 06 20 20 46 RT YC 00 17 17 63 IN 1 11 PH AR 25 MA 0 CY MG #5 TA 91 BL ET OX 00 02 90 30 00 TN Ac YC 40 -2 -2 .0 00 [...] ET AT 00 12 30 30 00 TN Ac EN 78 -2 -2 .0 00 [...] 46 RT ZA 09 16 17 08 RI 0 68 PH IN AR E MA 10 CY MG #5 91 TA BL ET ES 68 12 30 30 00 WA Ac CI 64 -2 -2 .0 00 L- ti TA 50 7- 7- 00 07 MA ve LO 52 20 20 46 RT RI 05 16 17 08 AM 4 69 [...] HE #5 N 91 10 -3 25 RI 54 12 30 30 00 WA Ac [...] 20 7- 7- 00 07 MA ve TN 75 20 20 46 RT N 81 [...] 16 17 56 E 5 83 PH RI AR OP MA CY 50 #5 MC 91 G SP RA Y OX 00 02 02 0 90 30 WA 22 GA Ac YC 40 -0 -0 0. L- 33 IN ti OD 60 6- 6- 00 MA 92 EY ve ON 52 20 20 0 RT 1 E- 30 16 16 TN AC 1 PH CH ET AR AE AM MA L IN CY S OP # HE N 10 10 05 -3 91 25 RI 54 01 02 2 30 30 WA 73 GA Ac AV 45 -0 -0 0. L- 94 IN ti 80 6- 5- 00 MA 01 EY ve TA 92 20 20 0 RT 6 TI 51 16 16 TN N 0 PH CH SO AR AE DI MA L UM CY S # 40 10 MG 05 91 TA B CY 68 02 02 0 [address] Ac CL 64 -0 -0 0. L- 99 ON ti OB 50 5- 5- 00 MA 84 E ve EN 45 20 20 0 RT 3 DI ZA 09 16 16 XI RI 0 PH E IN AR D E MA 10 CY # MG 10 TA 05 BL 91 ET OM 60 01 02 2 30 30 WA 73 GA Ac EP 50 -0 -0 0. L- 94 IN ti RA 53 6- 5- 00 MA 01 EY ve ZO 95 20 20 0 RT 3 LE 20 16 16 TN [address] AR AE MA L 20 CY S # MG 10 CA 05 PS 91 UL E ES 68 01 02 2 30 30 WA 73 GA Ac CI 64 -0 -0 0. L- 94 IN ti TA 50 6- 5- 00 MA 01 EY ve LO 44 20 20 0 RT 4 RI 77 16 16 TN AM 0 PH CH AR AE 20 MA L CY S MG # TA 10 BL 05 ET 91 GE 31 01 02 2 60 30 WA 73 GA Ac MF 72 -0 -0 0. L- 94 IN ti IB 20 6- 5- 00 MA 01 EY ve RO 22 20 20 0 RT 5 ZI 50 16 16 TN L 5 PH CH 60 AR AE 0 MA L MG CY S # TA BL 10 ET 05 91 ON 53 01 02 0 50 25 WA 88 GA Ac ET 88 -1 -0 0. L- 32 IN ti OU 50 5- 5- 00 MA 98 EY ve CH 24 20 20 0 RT 1 45 16 16 TN UL 0 PH CH TR AR AE A MA L TE CY S ST # ST 10 RI 05 PS 91 AL 16 01 02 2 30 30 WA 73 GA Ac LO 71 -0 -0 0. L- 94 IN ti PU 40 6- 5- 00 MA 01 EY ve RI 04 20 20 0 RT 2 NO 10 16 16 TN L 7 PH CH 10 AR AE 0 MA L MG CY S # TA BL 10 ET 05 91 AT 51 01 02 2 30 30 WA 73 GA Ac EN 07 -0 -0 0. L- 94 IN ti OL 90 6- 5- 00 MA 01 EY ve OL 75 20 20 0 RT 7 96 16 16 TN 25 3 PH CH AR AE MG MA L CY S TA # BL ET 10 05 91 PA 51 01 1 No NT 07 -2 OP 90 4- Lo RA 05 20 ng ZO 12 14 er LE 0 Ac SO ti D ve DR 40 MG TA B RI 00 01 1 No OT 00 -2 [...] 0M ti G ve Ta bl et RI 00 01 2 No ED 05 -2 [...] D ve DR 40 MG TA B RI 00 08 0 No ED 05 -2 NI 40 7- Lo SO 01 20 ng NE 82 13 er 0 20 Ac ti MG ve TA BL ET HY [address] 40 -2 OC 60 7- Lo OD 36 20 ng ON 56 13 er -A 2 CE Ac TA ti TN ve NO PH EN 5- 32 5 [...] ti 4H ve R Pa tc h RI 00 05 3 No OT 00 -0 [...] ti 4 ve MG /2 ML AL RI 00 04 0 No OT 00 -1 [...] DOS Code Location Performer Comment CT THORAX 15942 [place] JOSUE 7 MEDICAL W/[place] [address] [place] INOCENCIO ABDOMEN & 7 MEDICAL PELVIS IMAGING [...] AIRWAY EQUIPME EQUIPME PRESSURE DEVICE DRUG TEST 33895 [facility] PRSMV 7 [facility] QUAL DIR INC INC OPTICAL OBS PER DAY CONTINUOU E0601 GAYATHRIBRENDAN TRINH S 7 HOME HOME POSITIVE MEDICAL MEDICAL AIRWAY EQUIPME EQUIPME PRESSURE DEVICE DRUG TEST 31408 [facility] PRSMV 7 [facility] QUAL DIR INC INC OPTICAL OBS PER DAY CONTINUOU E0601 GAYATHRI TRINH S 7 HOME HOME POSITIVE MEDICAL MEDICAL AIRWAY EQUIPME EQUIPME PRESSURE DEVICE HEMOGLOBI 87745 [facility] N 7 [facility] GLYCOSYLA INC INC ERIAC A1C COMPREHEN 91041 [facility] SIVE 7 [facility] METABOLIC INC INC PANEL COLLECTIO 49695 [facility] Rascon VENOUS 7 [facility] BLOOD INC INC VENIPUNCT URE CONTINUOU E0601 GAYATHRI GAYATHRI S 7 HOME HOME POSITIVE MEDICAL MEDICAL AIRWAY EQUIPME EQUIPME PRESSURE DEVICE HOSPITAL 39940 [facility] 7 PHYSICIAN DAY S GROUP MANAGEMEN T 30 MIN/< SBSQ 16284 [facility] 7 PHYSICIAN CARE/DAY S GROUP 15 MINUTES FINAL G9551 [facility] R[facility] REPR ABD 7 MEDICAL IMAG STS IMAGING W/O ASS INCIDNT FND LES NTD: [place] [address] [facility] ABDOMEN & 7 MEDICAL PELVIS IMAGING W/O ASS CONTRAST MATERIAL FINAL G9638 [facility] REPORTS 7 MEDICAL W/O DOC IMAGING 1/MORE ASS DOSE REDUCTION TECH INITIAL 39283 [facility] 7 PHYSICIAN CARE/DAY [place] [address] [place] [address] NIVIA ROGER ABDOMEN & 7 MEDICAL PELVIS IMAGING W/O ASS CONTRAST MATERIAL CONTINUOU E0601 G[facility]ATHRI TRINH S 7 HOME HOME POSITIVE MEDICAL MEDICAL AIRWAY EQUIPME EQUIPME PRESSURE DEVICE DRUG TST G0477 [facility] PRESUMP;C 6 [facility] PBL BEING INC INC READ DC OPT OBV ONLY DRUG TEST G0481 [facility] DEFINITV 6 [facility] DR ID INC INC METH P DAY 8-[address] [place] [address] NIVIA SALAS ABDOMEN & 6 MEDICAL PELVIS IMAGING W/O ASS CONTRAST MATERIAL POLYSOM 99747 [facility] JHOANSEN 6/>YRS 6 [facility] SLEEP INC INC W/CPAP 4/> ADDL DEMETRIUS ATTND CONTINUOU E0601 GAYATHRI TRINH S 6 HOME HOME POSITIVE MEDICAL MEDICAL AIRWAY EQUIPME EQUIPME PRESSURE DEVICE DRUG TEST G0481 [facility] DEFINITV 6 [facility] ID INC INC METH P DAY 8-[address] OPHTH 42491 DANNI DANNI MEDICAL 6 AYAH AYAH XM&EVAL [...] P DAY 8-14 DRUG CL SLEEP STD 92981 [facility] AIRFLOW 6 [facility] HRT INC INC RATE&O2 SAT EFFORT UNATT IM ADM [id number] [facility] FARHAD PRQ ID 6 PHYSICIAN JASMYNE SUBQ/IM S GROUP NJXS 1 VACCINE IIV 33396 [facility] FARHAD ADJUVANTE 6 PHYSICIAN JASMYNE D VACCINE S GROUP FOR INTRAMUSC ULAR USE DRUG TST G0477 [facility] PRESUMP;C 6 [facility] PBL BEING INC INC READ DC OPT OBV ONLY TECHNETIU A9503 [facility] Arthur TC-99M 6 [facility] MEDRONATE INC INC DX UP TO 30 MCI BONE 72641 [place] [facility] ALL &/JOINT 6 MEDICAL IMAGING IMAGING WHOLE ASS BODY COLLECTIO 20417 [facility] N VENOUS 6 [facility] BLOOD INC INC VENIPUNCT URE COMPREHEN 94164 [facility] SIVE 6 [facility] METABOLIC INC INC PANEL BLOOD 19795 [facility] COUNT 6 [facility] COMPLETE INC INC AUTO&AUTO DIFRNTL WBC DRUG TST G0477 [facility] PRESUMP;C 6 [facility] PBL BEING INC INC READ DC OPT OBV ONLY DRUG TEST G0481 [facility] DEFINITV [address] ID INC INC METH P DAY 8-14 DRUG CL COMPREHEN 21546 [facility] SIVE 6 [facility] [place] [address] [facility] ALL ABD[facility]EN & 6 MEDICAL PELVIS IMAGING W/[place] [address] [facility] ALL THORACIC 6 MEDICAL SPINE W/O IMAGING CONTRAST ASS MATERIAL INJECTION J1100 [facility] 6 PHYSICIAN JASMYNE DEXAMETHO S GROUP SONE SODIUM PHOSPHATE 1 MG DRUG TST G0477 [facility] PRESUMP;C 6 [facility] PBL BEING INC INC READ DC OPT OBV ONLY DRUG TEST G0481 [facility] DEFINITV [address] [address] ID INC INC METH P DAY 8-14 DRUG [address] THERAPEUT [id number] [facility] IC 6 PHYSICIAN JASMYNE PROPHYLAC S [...] [facility] INC INC BLOOD 63590 [facility]ANS[facility] COUNT 6 [facility] COMPLETE INC INC AUTO&[place] [address] [facility] THYROID 6 [facility] STIMULATI INC INC NG HORMONE TSH COMPREHEN 93314 [facility] SIVE 6 [facility] METABOLIC INC INC PANEL LOCM Q9967 EL[facility]OHANSEN [phone] [facility] MG/ML INC INC IODINE CONCENTRA TION PER ML CT THORAX 68137 [facility] 6 [facility] W/CONTRAS INC INC T MATERIAL COLLECTIO 95168 [facility] N VENOUS 6 [facility] [place] [address] EL[facility]ANSEN UREA 6 [facility] NITROGEN INC INC QUANTITAT MENG CREATININ 48931 ELENO ELENO E [facility]LOOD 6 [facility] INC INC UNCLASSIF J3490 ELENO [facility] IED DRUGS 6 [facility] INC INC LOCM Q9967 ELENO JOHANSEN [phone] [facility] MG/ML INC INC IODINE CONCENTRA TION PER ML CT THORAX 20607 EL[facility]ANSEN 6 [facility] W/[place] [address] ELENO JOHANSEN ABDOMEN & 6 [facility] PELVIS INC INC W/CONTRAS T MATERIAL COMPREHEN 75004 [facility] SIVE 6 [facility] METABOLIC INC INC PANEL BLOOD 49502 ELENO ELENO COUNT 6 [facility] COMPLETE INC INC AUTO&[place] [address] ELENO [facility]ENO INFUSION 6 [facility] THERAPY/P INC INC ROPHYLAXI S /DX 1ST TO 1 HR BLOOD 67698 ELENO ELENO COUNT 6 [facility] COMPLETE INC INC AUTO&AUTO DIFRNTL WBC INJECTION J9299 [facility] 6 [facility] NIVOLUMAB INC INC 1 MG CHEMOTX 28205 ELENO JOHANSEN ADMN IV 6 [facility] NFS TQ UP INC INC 1 HR SBST/DRUG BASIC 59637 ELENO JOHANSEN METABOLIC 6 [facility] PANEL INC INC CALCIUM TOTAL BLOOD 83374 ELENO JOHANSEN COUNT 6 [facility] COMPLETE INC INC AUTO&AUTO DIFRNTL WBC BLOOD 85172 ELENO JOHANSEN COUNT 6 [facility] COMPLETE INC INC AUTO&[place] [address] ELENO JOHANSEN LIPASE 6 [facility] INC INC COMPREHEN 68669 ELENO J[facility]ANSEN SIVE 6 [facility] [address] ELENO JOHANSEN AMYLASE 6 [facility] INC INC BLOOD 08603 [facility] COMPLETE INC INC AUTO&AUTO DIFRNTL WBC COMPREHEN 95747 [facility] S[facility] 5 [facility] METABOLIC INC INC PANEL COLLECTIO 48941 ELENO TAYLORON N VENOUS 5 [facility] [address] ELENO JOHANSEN ABDOMEN & 5 [facility] PELVIS INC INC W/CONTRAS T MATERIAL CT THORAX 71782 [facility] W/CONTRAS INC INC T MATERIAL CHEMOTX 13439 ELENO JOHANSEN ADMN IV 5 [facility] NFS TQ UP INC INC 1 HR SBST/DRUG BLOOD 80714 ELENO ELENO COUNT [facility] COMPLETE INC INC AUTO&AUTO DIFRNTL WBC CHEMOTX 62088 ELENO TAYLORON ADMN IV 5 [facility] NFS TQ UP INC INC 1 HR SBST/DRUG BLOOD 98734 [facility]ANSEN [facility] COMPLETE INC INC AUTO&AUTO DIFRNTL WBC COMPREHEN 94399 [facility]EN SIVE 5 [facility] METABOLIC INC INC PANEL BLOOD 70023 [facility] JOHANSEN COUNT 5 [facility] COMPLETE INC INC AUTO&AUTO DIFRNTL WBC CHEMOTX 41313 EL[facility] T[facility]ON ADMN IV [facility] NFS TQ UP INC INC 1 HR SBST/DRUG IM ADM 28782 [facility] PRQ ID 5 PHYSICIAN JASMYNE SUBQ/IM S GROUP NJXS 1 VACCINE IIV3 [id number] [facility] VACCINE 5 PHYSICIAN JASMYNE SPLIT S GROUP VIRUS 0.5 ML DOSAGE IM USE CHEMOTX 33070 ELENO ELENO ADMN IV 5 [facility] NFS TQ UP INC INC 1 HR SBST/DRUG COLLECTIO 89165 EL[facility] J[facility]ANSEN N VENOUS 5 [facility] BLOOD INC INC VENIPUNCT URE CT THORAX 44979 [place] 5 MEDICAL W/[place] [address] [place] ABDOMEN 5 MEDICAL W/CONTRAS IMAGING T ASS MATERIAL BLOOD 87909 [facility]ANSEN [facility] 5 [facility] COMPLETE INC INC AUTO&AUTO DIFRNTL WBC COMPREHEN 75793 [facility] SIVE 5 [facility] METABOLIC INC INC PANEL LOCM Q9967 ELENO JOHASNEN [phone] 5 [facility] MG/ML INC INC IODINE CONCENTRA TION PER ML BLOOD 98531 [facility] JOHANSEN COUNT 5 [facility] COMPLETE INC INC AUTO&AUTO DIFRNTL WBC CHEMOTX 19855 ELENO JOHANSEN ADMN IV 5 [facility] NFS TQ UP INC INC 1 HR SBST/DRUG CHEMOTX 40335 ELENO JOHANSEN ADMN IV 5 [facility] NFS TQ UP INC INC 1 HR / SBST/DRUG BLOOD 48005 [facility] JOHANSEN COUNT 5 [facility] COMPLETE INC INC AUTO&AUTO DIFRNTL WBC BLOOD 68801 EL[facility] JOHANSEN COUNT 5 [facility] COMPLETE INC INC AUTO&AUTO DIFRNTL WBC COMPREHEN 73244 [facility]ANSEN SIVE 5 [facility] METABOLIC INC INC PANEL CHEMOTX 95407 ELENO JOHANSEN ADMN IV 5 [facility] NFS TQ UP INC INC 1 HR SBST/DRUG CHEMOTX 23474 ELENO JOHANSEN ADMN IV 5 [facility] NFS TQ UP INC INC 1 HR SBST/DRUG COLLECTIO 68538 ELENO JOHANSEN N VENOUS 5 [facility] BLOOD INC INC VENIPUNCT URE CHEMOTHER 56594 ELENO JOHANSEN APY ADMN 5 [facility] IV INC INC INFUSION TQ EA HR COMPREHEN 71777 [facility]ANSEN SIVE 5 [facility] METABOLIC INC INC PANEL BLOOD 96059 EL[facility] JOHANSEN COUNT 5 [facility] COMPLETE INC INC AUTO&AUTO DIFRNTL WBC LOCM Q9967 ELENO JOHANSEN [phone] 5 [facility] MG/ML INC [place] [address] N[place] ROGER ALL ABDOMEN & 5 MEDICAL PELVIS IMAGING W/CONTRAS ASS T MATERIAL CT THORAX 24721 NIVIA ROGER ALL 5 MEDICAL W/CONTRAS IMAGING T ASS MATERIAL COLLECTIO 52665 ELENO TAYLORON N VENOUS 5 [facility] [place] [address] ELENO JOHANSEN AMYLASE 5 [facility] INC INC BLOOD 37407 EL[facility] JOHANSEN COUNT 5 [facility] COMPLETE INC INC AUTO&[place] [address] ELENO TAYLORON LIPASE 5 [facility] INC INC COMPREHEN 19048 ELENO ELENO SIVE 5 [facility] METABOLIC INC INC PANEL BLOOD 81946 ELENO ELENO COUNT 5 [facility] COMPLETE INC INC AUTO&AUTO DIFRNTL WBC COMPREHEN 69383 ELENO ELENO SIVE 5 [facility] METABOLIC INC INC PANEL COLLECTIO 82641 ELENO JOHANSEN N VENOUS 5 [facility] [place] [address] ELENO ELENO ERYTHROPO 5 [facility] [place] [address] [place] ABDOMEN & 5 MEDICAL SHELIA PELVIS IMAGING W/O ASS CONTRAST [facility]ERIAL [facility] 19671 [facility] 5 CARE R H DAY ASSOCIATE MANAGEMEN S T 30 MIN/< SBSQ 10290 [place] [address] CARE R H CARE/DAY ASSOCIATE 15 S MINUTES INITIAL 58081 [facility] TOD INPATIENT 5 PHYSICIAN CONSULT S GROUP NEW/ESTAB PT 55 MIN INITIAL 31076 [place] [address] CARE R H CARE/DAY ASSOCI[place] [address] [place] [address] [place] ROGER ALL ABDOMEN & 5 MEDICAL PELVIS IMAGING W/O ASS CONTRAST MATERIAL RADEX 95116 ELENO JOHANSEN SPINE 5 [facility] CERVICAL INC INC 4 OR 5 VIEWS RADEX 11611 EL[facility] JOHANSEN SPINE 5 [facility] LUMBOSACR INC INC AL MINIMUM 4 VIEWS HOSPITAL 00481 [facility] 5 CARE R H DAY ASSOCIATE MANAGEMEN S T 30 MIN/< SBSQ 21325 [facility] 5 CARE R H CARE/DAY ASSOCIATE [address] THORAX [address]48[address] [place] W/O 5 MEDICAL SHELIA CONTRAST IMAGING MATERIAL ASS INITIAL 26293 [facility] 5 CARE R H CARE/DAY ASSOCIATE 50 S MINUTES INITIAL 31668 [facility] TOD INPATIENT 5 PHYSICIAN CONSULT S GROUP NEW/ESTAB [place] [address] [place] [address] [place] ABDOMEN & 5 MEDICAL SHELIA PELVIS IMAGING W/CONTRAS ASS T MATERIAL ECG [address] [facility] ROUTINE 4 JOSE F IMT ECG EMERGENCY W/LEAST PHYS 12 LDS I&R ONLY LIPID 19865 iGlueES RANDLAL PANEL 4 URINLS 74792 Vusay HARSHAD RANDALL DIP 4 STICK/TAB LET REAGNT NON-AUTO MICRSCPY METANEPHR 74412 [facility] 4 DIAGNOSTI DIAGNOSTI CS CS LOCM Q9967 ELENO JOHANSEN [phone] 4 [facility] MG/ML INC INC IODINE CONCENTRA TION PER ML CT THORAX 71999 [facility] JOHANSEN 4 [facility] W/[place] [address] DANA DANA ABDOMEN & 4 SHELIA SHELIA PELVIS W/O CONTRAST MATERIAL Encounters Encounter Start End Date Code Location Performer Type Date OFFICE 65917 [facility] OUTPATIEN 7 7 PHYSICIAN T VISIT S GROUP 15 MINUTES OFFICE 09185 [facility] OUTPATIEN 7 7 PHYSICIAN T VISIT S GROUP 25 MINUTES HOSP[facility] - 7 7 [facility] OUTPATIEN INC T OFFICE 16387 [facility] OUTPATIEN 7 7 PHYSICIAN T VISIT S GROUP 25 MINUTES HOSPITAL [facility] - 7 7 [facility] OUTPATIEN INC T OFFICE 68539 [facility] OUTPATIEN 7 7 PHYSICIAN T VISIT S GROUP 25 MINUTES HOSPITAL [facility] - 7 7 [facility] OUTPATIEN INC T OFFICE 32086 [facility] OUTPATIEN 7 7 PHYSICIAN T VISIT S GROUP 25 MINUTES HOSPITAL [facility] - 7 7 [facility] INPATIENT INC EMERGENCY 54317 DANAY LLAMAS DEPT 7 7 PHYSICIAN VISIT S, [facility] HIGH SEVERITY& THREAT [facility] OFFICE 02719 ELENO SMITH OUTPATIEN 6 6 [facility] VISIT 5 HOSPITAL MINUTES P OFFICE 78488 [facility] OUTPATIEN 6 6 PHYSICIAN T VISIT S GROUP 15 MINUTES HOSPITAL [facility] - 6 6 [facility] OUTPATIEN [facility] EMERGENCY 92270 DANAY WHIPPLE DEPT 6 6 PHYSICIAN VISIT S[facility] HIGH [facility]VERITY& THREAT [facility] - 6 6 [facility] OUTPATIEN [facility] - 6 6 [facility] - 6 6 [facility] OUTPATIEN [facility] T OFFICE 73522 [facility] OUTPATIEN 6 6 PHYSICIAN JASMYNE T VISIT S GROUP 15 MINUTES HOSPITAL [facility] - 6 6 [facility] OUTPATIEN [facility] - 6 6 [facility] OUTPATIEN [facility] T OFFICE 56410 [facility] OUTPATIEN 6 6 PHYSICIAN JASMYNE T VISIT S GROUP 15 MINUTES OFFICE 22537 ELENO SMITH OUTPATIEN 6 6 [facility] 10 P MINUTES HOSPITAL [facility] - 6 6 [facility] OUTPATIEN [facility] - 6 6 [facility] OUTPATIEN INC T OFFICE 55050 ELENO SMITH OUTPATIEN 6 6 [facility] 15 P MINUTES OFFICE 95893 [facility] OUTPATI[facility] 6 6 PHYSICIAN JASMYNE T VISIT S GROUP 15 MINUTES HOSPITAL [facility] - 6 6 [facility] OUTPATIEN INC [facility] - 6 6 [facility] OUTPATIEN INC T OFFICE 58786 [facility] OUTPATIEN 6 6 PHYSICIAN JASMYNE T VISIT 5 S GROUP MINUTES EMERGENCY 42378 [facility] DEPT 6 6 PHYSICIAN JASMYNE VISIT S, [facility] HIGH [facility]VERITY& THREAT [facility] ELENO - 6 6 [facility] OUTPATIEN INC T OFFICE 81188 [facility] OUTPATIEN 6 6 PHYSICIAN JASMYNE T VISIT S GROUP 15 MINUTES HOSPITAL [facility] - 6 6 [facility] OUTPATIEN INC T OFFICE 90479 [facility] SMITH OUTPATIEN 6 6 [facility] 10 P MINUTES HOSPITAL [facility] - 6 6 [facility] OUTPATIEN INC T OFFICE 70796 [facility] OUTPATIEN 6 6 PHYSICIAN JASMYNE T VISIT S GROUP 15 MINUTES OFFICE 32341 [facility] OUTPATIEN 6 6 PHYSICIAN JASMYNE T VISIT S GROUP 10 MINUTES OFFICE 41110 ELENO SMITH OUTPATIEN 6 6 [facility] 10 P MINUTES OFFICE 72681 [facility] OUTPATIEN 6 6 PHYSICIAN JASMYNE T VISIT S GROUP 10 MINUTES HOSPITAL [facility] - 6 6 [facility] OUTPATIEN INC [facility] - 6 6 [facility] OUTPATIEN INC T OFFICE 91998 ELENO SMITH OUTPATIEN 6 6 [facility] VISIT [facility] 10 P [facility] - 6 6 [facility] OUTPATIEN [facility] - 6 6 [facility] OUTPATIEN INC T OFFICE 66190 [facility] OUTPATIEN 6 6 PHYSICIAN JASMYNE T VISIT S GROUP 10 MINUTES OFFICE 18559 [facility] SMITH OUTPATIEN 6 6 [facility] 10 P [facility] - 6 6 [facility] OUTPATIEN [facility] ELENO - 6 6 [facility] OUTPATIEN INC T OFFICE 43996 ELENO SMITH OUTPATIEN 6 6 [facility] 10 P MINUTES OFFICE 00223 [facility] OUTPATIEN 6 6 PHYSICIAN JASMYNE T VISIT S GROUP 15 MINUTES HOSPITAL [facility] - 6 6 [facility] OUTPATIEN INC T OFFICE 74813 [facility] SMITH OUTPATIEN 5 5 [facility] 10 P [facility] - 5 5 [facility] OUTPATIEN [facility] - 5 5 [facility] OUTPATIEN INC T OFF[facility] 13857 [facility] OUTPATIEN 5 5 PHYSICIAN JASMYNE T VISIT S GROUP 10 MINUTES HOSPITAL [facility] - 5 5 [facility] OUTPATIEN [facility] - 5 5 [facility] OUTPATIEN INC T OFFICE 68262 EL[facility] SMITH OUTPATIEN 5 5 [facility] 5 HOSPITAL MINUTES HOSPITAL [facility] - 5 5 [facility] OUTPATIEN INC T OFFICE 67498 [facility] OUTPATIEN 5 5 PHYSICIAN JASMYNE T VISIT S GROUP 10 MINUTES HOSPITAL [facility] - 5 5 [facility] OUTPATIEN INC T OFFICE 65666 EL[facility] SMITH OUTPATIEN 5 5 [facility] 10 P MINUTES HOSP[facility] - 5 5 [facility] OUTPATIEN INC [facility] - 5 5 [facility] OUTPATIEN INC T OFFICE 74277 [facility] OUTPATIEN 5 5 PHYSICIAN JASMYNE T VISIT S GROUP 25 MINUTES HOSP[facility] - 5 5 [facility] OUTPATIEN INC T OFFICE 16397 EL[facility] SMITH OUTPATIEN 5 5 [facility] T VISIT 5 HOSPITAL MINUTES P [facility]OSPITAL [facility] - 5 5 [facility] OUTPATIEN INC T OFFICE 89749 [facility] OUTPATIEN 5 5 PHYSICIAN JASMYNE T VISIT S GROUP 10 MINUTES [facility]OSP[facility] - 5 5 [facility] OUTPATIEN INC T OFFICE 95912 EL[facility] SMITH OUTPATIEN 5 5 [facility] T VISIT 5 HOSPITAL MINUTES P OFFICE 07325 [facility] OUTPATIEN 5 5 PHYSICIAN JASMYNE T VISIT S GROUP 15 MINUTES OFFICE 24530 EL[facility] SMITH OUTPATIEN 5 5 [facility] 10 P MINUTES OFFICE 49353 [facility] TOD OUTPATIEN 5 5 PHYSICIAN T VISIT S GROUP 15 MINUTES HOSPITAL [facility] - 5 5 [facility] OUTPATIEN INC T OFFICE 90708 [facility] TOD OUTPATIEN 5 5 PHYSICIAN T VISIT S GROUP 15 MINUTES [facility]OSP[facility] - 5 5 [facility] OUTPATIEN INC T OFFICE 02040 [facility] OUTPATIEN 5 5 PHYSICIAN JASMYNE T VISIT S GROUP 15 MINUTES OFFICE 22352 [facility] OUTPATIEN 5 5 [facility] VISIT HOSPITAL 10 P MINUTES HOSPITAL [facility] - 5 5 [facility] OUTPATI[facility] INC T EMERGENCY 79006 [facility] DEPT 5 5 PHYSICIAN JASMYNE VISIT S[facility] HIGH SEVERITY& THREAT FUNJ OFFICE 43527 [facility] TOD OUTPATIEN 5 5 PHYSICIAN T VISIT S GROUP 15 MINUTES OFFICE 50432 [facility] OUTPATIEN 5 5 [facility] 45 HOSPITAL MINUTES P EMERGENCY 52163 DANAY [facility] DEPT 5 5 PHYSICIAN JASMYNE VISIT S, [facility] HIGH SEVERITY& THREAT [facility] - 5 5 [facility] OUTPATIEN INC T OFFICE 60204 ZACK JABARI OUTPATIEN 5 5 [facility] T VISIT URGENT 25 TREAT MINUTES OFFICE 09439 [facility] TOD OUTPATIEN 5 5 PHYSICIAN T VISIT S GROUP 15 MINUTES EMERGENCY 58964 ELNEO LLAMAS 5 5 [facility] T VISIT P HIGH/URGE NT SEVERITY [facility] - 5 5 [facility] INPATIENT INC EMERGENCY 11504 [facility] 4 4 [facility]SE [facility] EMERGENCY T VISIT PHYS MODERATE SEVERITY EMERGENCY 41115 [facility] EMERGENCY T VISIT PHYS HIGH/URGE NT SEVERITY OFFICE 36239 HARSHAD RANDALL [facility] OUTPATIEN 4 4 T VISIT 15 MINUTES OFFICE 92167 HARSHAD RANDALL [facility] OUTPATIEN 4 4 T VISIT 15 MINUTES OFFICE 29306 HARSHAD RANDALL [facility] OUTPATIEN 4 4 T VISIT 25 MINUTES HOSPITAL [facility] - 4 4 [facility] OUTPATIEN INC T OFFICE 49120 HARSHAD RANDALL [facility] OUTPATIEN 4 4 T VISIT 25 MINUTES EMERGENCY 98811 [facility] WILL DEPT 4 4 [facility] VISIT HIGH SEVERITY& THREAT FUNJ EMERGENCY 37814 ZENAIDA RANDALL ZENAIDA RANDALL 4 4 DEPARTMEN T VISIT MODERATE SEVERITY Inpatient ILEANA Fields MD (IN) 4 10:57 4 12:45 [facility] Emergency KEEGAN WILL MD (ER) 4 08:06 4 09:20 [facility] Emergency KEEGAN Ramirez (ER) 3 15:40 3 17:05 [facility] Emergency KEEGAN Bronson MD (ER) 3 21:14 3 21:51 [facility] Emergency KEEGAN Ramirez (ER) 3 12:15 3 15:53 [facility] E. Inpatient ILEANA Sharma MD (IN) 3 08:44 3 09:40 [facility] Emergency KEEGAN Sanchez MD (ER) 3 08:10 3 09:46 [facility]
--- OUTSIDE RECORDS SUMMARY | 2017-04-25 17:57 | External Medical Summary Rpt ---
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 Name Role Phone ALFARIS MOH, ALFARIS Unavailable Unavailable MOH WILL BRO, WILL Unavailable Unavailable BRO BEINEKE, BEINEKE Unavailable Unavailable ROGER, ROGER Unavailable Unavailable ROGER ALL, ROGER ALL Unavailable Unavailable DANNI AYAH, DANNI Unavailable Unavailable AYAH DANNI AYAH, DANNI Unavailable Unavailable AYAH DANA SHELIA, Unavailable Unavailable DANA SHELIA DANA SHELIA, Unavailable Unavailable DANA SHELIA SMITH, SMITH Unavailable Unavailable SMITH PHI, Unavailable Unavailable SMITH PHI FARHAD, FARHAD Unavailable Unavailable FARHAD JASMYNE, FARHAD Unavailable Unavailable JASMYNE [facility] Unavailable Unavailable INC, [facility] Unavailable Unavailable [facility]PITAL [facility], [facility], Unavailable Unavailable [facility] WHIPPLE, WHIPPLE Unavailable Unavailable JABARI NAN, JABARI Unavailable Unavailable NAN FRANCIS IMT, FRANCIS Unavailable Unavailable IMT [facility] Unavailable Unavailable [facility], [facility] HARSHAD RANDALL, HARSHAD RANDALL Unavailable Unavailable HARSHAD RANDALL, HARSHAD ARNDALL Unavailable Unavailable [facility] Unavailable [facility], [facility], Unavailable Unavailable [facility], Unavailable [facility]available [facility], [facility] PAVEZ, PAVEZ Unavailable Unavailable [facility], Unavailable Unavailable [facility], Unavailable Unavailable [facility] SRINIVAS TOD, SRINIVAS TOD Unavailable Unavailable ZENAIDA RANDALL, ZENAIDA RANDALL Unavailable Unavailable ZENAIDA RANDALL, ZENAIDA RANDALL Unavailable Unavailable [facility] Unavailable Unavailable [facility], [facility] Unavailable Unavailable [facility], [facility] # Unavailable Unavailable [id number], [facility] # [id number] Purpose Continuity of Care Document - 02-01-2014 through 2016 Problems Code Diagnosis DOS Provider Status C649 MALIGNANT 02-06-2017 [facility] NEOPLASM [facility] UNS KIDNEY IMAGING ASS EXCEPT RENL PELVIS K5730 DIVERTICULO 02-06-2017 [facility] SIS LG MEDICAL INTEST W/O IMAGING ASS PERF/ABSC W/O BLEED R590 LOCALIZED 02-06-2017 [facility] ENLARGED MEDICAL LYMPH NODES IMAGING ASS R911 SOLITARY 02-06-2017 [facility] PULMONARY MEDICAL NODULE IMAGING ASS E119 TYPE 2 02-03-2017 [facility] DIABETES PHYSICIANS MELLITUS GROUP WITHOUT COMPLICATIO NS I10 ESSENTIAL 02-03-2017 [facility] PRIMARY PHYSICIANS HYPERTENSIO GROUP N R86269 OTHER LONG 02-03-2017 [facility] TERM PHYSICIANS CURRENT GROUP DRUG THERAPY G4733 OBSTRUCTIVE 01-19-2017 [facility] ADULT MEDICAL PEDIATRIC EQUIPME J40 BRONCHITIS 10-06-2016 [facility] NOT PHYSICIANS SPECIFIED GROUP ACUTE OR CHRONIC C7989 SECONDARY 09-22-2016 [facility] NEOPLASM INC OTH SPECIFIED SITES E118 TYPE 2 09-22-2016 [facility] DIABETES PHYSICIANS MELLITUS GROUP W/UNS COMPLICATIO NS E871 HYPO-OSMOLA 09-22-2016 [facility] LITY AND PHYSICIANS HYPONATREMI GROUP A K8590 ACUTE 09-22-2016 [facility] PANCREATITI PHYSICIANS S WO GROUP NECROSIS/IN FECTION UNSPEC Z720 TOBACCO USE 09-22-2016 [facility]ANS GROUP C641 MALIGNANT 09-21-2016 [facility] PHYSICIANS, KIDNEY PLLC EXCEPT RENAL PELVIS K8580 OTHER ACUTE 09-21-2016 [facility], PANCREATITI PLLC S WO NECROSIS/IN FECTION R1032 LEFT LOWER 09-21-2016 [facility] QUADRANT [facility] PAIN IMAGING ASS R109 UNSPECIFIED 09-21-2016 [facility] ABDOMINAL [facility]ICAL PAIN IMAGING ASS R110 NAUSEA 09-21-2016 [facility] K60217 PERSONAL 09-21-2016 [facility] HISTORY MEDICAL OTHER IMAGING ASS MALIGNANT NEOPLASM KIDNEY K5731 DIVERTICULO 09-03-2016 [facility] LG PHYSICIANS, INTEST W/O PLLC PERF/ABSC W/BLEED R1031 RIGHT LOWER 09-03-2016 [facility] G4713 RECURRENT 08-27-2016 [facility] HYPERSOMNIA PHYSICIANS GROUP J984 OTHER 08-27-2016 [facility] DISORDERS PHYSICIANS OF LUNG GROUP H527 UNSPECIFIED 07-28-2016 [facility] A[facility] DISORDER OF REFRACTION Z23 ENCOUNTER 06-16-2016 [facility] FOR PHYSICIANS IMMUNIZATIO GROUP N M546 PAIN IN 05-13-2016 [facility] THORACIC [facility] SPINE IMAGING ASS Z905 ACQUIRED 05-13-2016 [facility] ABSENCE OF MEDICAL KIDNEY IMAGING ASS G4730 SLEEP APNEA 04-30-2016 [facility] PHYSICIANS UNSPECIFIED GROUP M7711 LATERAL 04-30-2016 [facility] EPICONDYLIT PHYSICIANS IS RIGHT GROUP ELBOW E875 HYPERKALEMI 04-24-2016 [facility] A PHYSICIANS GROUP 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 [facility] ADRENAL [facility]ICAL GLAND IMAGING ASS UNSPECIFIED 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 E785 HYPERLIPIDE 03-18-2016 [facility] KEYON PHYSICIANS UNSPECIFIED GROUP C7800 SECONDARY 02-18-2016 [facility] MALIGNANT [facility] NEOPLASM OF [facility] P UNSPECIFIED LUNG C7970 SECONDARY 02-18-2016 [facility] NEOPLASM HOSPITAL P UNS ADRENAL GLAND J302 OTHER 02-18-2016 [facility] SEASONAL PHYSICIANS ALLERGIC GROUP RHINITIS R918 OTHER 02-14-2016 [facility] NONSPECIFIC MEDICAL ABNORMAL IMAGING ASS FINDING OF LUNG FIELD R739 HYPERGLYCEM 10-19-2015 [facility] IA PHYSICIANS UNSPECIFIED GROUP Z5111 ENCOUNTER 10-10-2015 [facility] P TIC CHEMOTHERAP Y Z5181 ENCOUNTER 08-22-2015 [facility] THERAPEUTIC INC DRUG LEVEL MONITORING N281 CYST OF 06-29-2015 [facility] KIDNEY MEDICAL ACQUIRED IMAGING ASS X53152 RESIDENTIAL 06-14-2015 [facility] CURRENT USE PHYSICIANS OF OPIATE GROUP ANALGESIC 1890 MALIGNANT 06-04-2015 [facility] [place] NEOP[facility]M OF [facility] KIDNEY INC EXCEPT PELVIS V5811 ENCOUNTER 06-04-2015 [facility] ANTINEOPLAS INC TIC CHEMOTHERAP Y V5869 LONG-TERM 05-15-2015 [facility] (CURRENT) PHYSICIANS USE OF GROUP OTHER MEDICATIONS 68229 OVERWEIGHT 04-23-2015 [facility] PHYSICIANS GROUP 4019 UNSPECIFIED 04-23-2015 [facility] ESSENTIAL PHYSICIANS HYPERTENSIO GROUP N 40705 DIVERTICULI 04-23-2015 [facility] TIS OF PHYSICIANS COLON GROUP 24156 DIVERTICULI 04-11-2015 [facility] TIS OF PHYSICIANS COLON WITH GROUP HEMORRHAGE 61425 ABDOMINAL 04-11-2015 [facility] PAIN, LEFT PHYSICIANS LOWER GROUP QUADRANT 78885 ABDOMINAL 04-11-2015 [facility] PAIN, PHYSICIANS PERIUMBILIC GROUP 03618 ABDOMINAL 04-11-2015 [facility] PAIN OTHER PHYSICIANS SPECIFIED GROUP SITE V1052 PERSONAL 04-11-2015 [facility] HISTORY OF PHYSICIANS MALIGNANT GROUP NEOPLASM OF KIDNEY 2559 UNSPECIFIED 04-06-2015 [facility] DISORDER MEDICAL OF ADRENAL IMAGING ASS GLANDS 5180 PULMONARY 04-06-2015 [facility] COLLAPSE [facility]ICAL [facility] 66015 UNSPEC 04-06-2015 [facility] VENTRAL MEDICAL LUIS W/O IMAGING ASS MENTION OBST/GANGRE N 7856 ENLARGEMENT 04-06-2015 [facility] OF LYMPH MEDICAL NODES IMAGING ASS 65593 ABDOMINAL 04-06-2015 [facility] [place] PAIN, [facility] UNSPECIFIED INC SITE 35262 OTHER 04-06-2015 [facility] NONSPECIFIC MEDICAL ABNORMAL IMAGING ASS FINDING OF LUNG FIELD 2724 OTHER AND 03-23-2015 [facility] UNSPECIFIED PHYSICIANS GROUP HYPERLIPIDE KEYON V4573 ACQUIRED 02-28-2015 [facility] ABSENCE OF MEDICAL KIDNEY IMAGING ASS 2357 NEOPLASM 02-07-2015 [facility] P TRACH BRONCHUS&STEFANI NG 7231 CERVICALGIA 01-25-2015 [facility] 7245 UNSPECIFIED 01-25-2015 [facility] BACKACHE [facility]ICAL [facility] ASS 84970 DIVERTICULO 01-24-2015 [facility] COLON URGENT TREAT 5770 ACUTE 01-24-2015 [facility] PANCREATITI [facility] S URGENT TREAT 7242 LUMBAGO 01-24-2015 [facility] URGENT TREAT 92903 LEUKOCYTOSI 01-10-2015 [facility] S PHYSICIANS UNSPECIFIED GROUP 4011 ESSENTIAL 01-10-2015 [facility] HYPERTENSIO PHYSICIANS N, BENIGN GROUP 59972 COR 01-10-2015 [facility] ATHEROSLERO PHYSICIANS UNSPEC GROUP TYPE VESSEL [place]/NONA T 7880 RENAL COLIC 01-09-2015 [facility] 7881 DYSURIA 01-09-2015 [facility] 93740 SOLITARY 01-09-2015 [facility] PULMONARY [facility] NODULE INC 4739 UNSPECIFIED 07-18-2014 [facility] SINUS[facility]IS N EMERGENCY PHYS 27466 PAIN IN 07-18-2014 [facility] JOINT, N EMERGENCY ANKLE AND PHYS FOOT 65709 TENOSYNOVIT 07-18-2014 [facility] IS OF FOOT N EMERGENCY AND ANKLE PHYS 5990 URINARY 06-16-2014 [facility] TRACT N EMERGENCY INFECTION PHYS SITE NOT SPECIFIED 7804 DIZZINESS 06-16-2014 [facility] AND N EMERGENCY GIDDINESS PHYS 56332 GENERALIZED 05-06-2014 [facility] ANXIETY DISORDER 7248 OTHER 03-23-2014 [facility] RANDALL SYMPTOMS REFERABLE TO BACK 2374 NEOPLASM 02-21-2014 [facility] BHV OTH&UNSPEC ENDOCRN GLANDS 7840 HEADACHE 02-21-2014 [facility] 90856 DIARRHEA 02-21-2014 [facility] PEREIRA 2359 NEOPLASM 02-16-2014 [facility] BEHAVIOR INC OTH&UNSPEC RESP ORGN 5932 ACQUIRED 02-06-2014 [facility] CYST OF SHELIA KIDNEY 5939 UNSPECIFIED 02-06-2014 [facility] DISORDER SHELIA OF KIDNEY AND URETER 462 ACUTE 02-01-2014 [facility] PHARYNGITIS Medications Na ND Rx Da Fi Fi Am Da Di Ph RX Ph St me C No te ll ll ou ys ag ar # ys at rm s nt no ma ic us Or Da si cy ia de te s n re d ES 68 05 03 13 30 00 WA Ac CI 64 -2 -3 .0 00 L- ti TA 50 5- 0- 00 07 MA ve LO 52 20 20 48 RT IA 05 17 17 95 AM 4 46 PH AR 20 MA CY MG #5 TA 91 BL ET FL 60 05 16 30 00 WA Ac UT 43 -2 -3 .0 00 L- ti IC 20 8- 0- 00 07 MA ve 26 20 20 48 RT ON 41 17 17 95 E 5 47 PH IA AR OP MA CY 50 #5 MC 91 G SP RA Y ME 68 05 06 60 30 00 WA Ac TF 64 -2 -3 .0 00 L- ti OR 50 8- 0- 00 07 MA ve IL 54 20 20 48 RT N 55 17 17 95 HC 9 49 PH L AR 1, MA 00 CY 0 MG #5 91 TA BL ET AT 00 05 30 30 00 WA Ac EN 78 -2 -3 .0 00 L- ti OL 11 8- 0- 00 07 MA ve OL 07 20 20 48 RT 80 17 17 95 25 1 44 PH AR MG MA CY TA BL #5 ET 91 CY 68 05 06 30 30 00 WA Ac CL 64 -2 -3 .0 00 L- ti OB 50 8- 0- 00 07 MA ve EN 51 20 20 48 RT ZA 89 17 17 95 IA 0 45 PH IN AR E MA 10 CY MG #5 91 TA BL ET AL 16 05 06 30 30 00 WA Ac LO 71 -2 -3 .0 00 L- ti PU 40 8- 0- 00 07 MA ve RI 04 20 20 48 RT NO 10 17 17 95 L 7 43 PH 10 AR 0 MA MG CY TA #5 BL 91 ET LO 68 05 WA Ac SA 64 -2 -2 .0 00 L- ti RT 50 3- 3- 00 07 MA ve AN 40 20 20 48 RT 75 17 17 95 PO 4 48 PH TA AR SS MA IU CY M 25 #5 91 MG TA B OM 60 05 NV Ac EP 50 -2 -2 .0 00 L- ti RA 53 3- 3- 00 07 MA ve ZO 95 20 20 48 RT LE 20 17 [address] AR MA 20 CY MG #5 91 CA PS UL E GA 53 NV Ac BA 74 -2 -2 .0 00 L- ti PE 60 3- 3- 00 07 MA ve NT 10 20 20 48 RT IN 10 17 17 95 5 52 PH 10 AR 0 MA MG CY CA #5 PS 91 UL E OX 00 00 NV Ac YC 40 -2 -2 .0 00 L- ti OD 60 3- 3- 00 02 MA ve ON 52 20 20 24 RT E- 30 17 17 04 AC 1 42 PH ET AR AM MA IN CY OP HE #5 N 91 10 -3 25 IA 54 05 03 13 30 00 NV Ac AV 45 -1 -1 .0 00 L- ti 80 5- 6- 00 07 MA ve TA 92 20 20 45 RT TI 51 17 17 53 N 0 95 PH SO AR DI MA UM CY 40 #5 91 MG TA B ES 68 00 NV Ac CI 64 -2 -0 .0 00 L- ti TA 50 8- 2- 00 07 MA ve LO 52 20 20 41 RT IA 05 17 17 81 AM 4 82 PH AR 20 MA CY MG #5 TA 91 BL ET LI 54 04 03 13 30 00 NV Ac SI 45 -2 -0 .0 00 L- ti NO 80 8- 2- 00 07 MA ve IA 99 20 20 47 RT IL 91 17 17 87 0 87 PH 2. AR 5 MA MG CY TA #5 BL 91 ET AT 00 00 NV Ac EN 78 -0 -0 .0 00 L- ti OL 11 1- 2- 00 07 MA ve OL 07 20 20 48 RT 80 17 17 54 25 1 53 PH AR MG MA CY TA BL #5 ET 91 AL 16 NV Ac LO 71 -0 -0 .0 00 L- ti PU 40 1- 2- 00 07 MA ve RI 04 20 20 48 RT NO 10 17 17 54 L 7 55 PH 10 AR 0 MA MG CY TA #5 BL 91 ET ME 68 05 06 60 30 00 WA Ac TF 64 -0 -0 .0 00 L- ti OR 50 1- 2- 00 07 MA ve IL 54 20 20 48 RT N 55 17 17 54 HC 9 56 PH L AR 1, MA 00 CY 0 MG #5 91 TA BL ET CY 68 05 06 30 30 00 WA Ac CL 64 -0 -0 .0 00 L- ti OB 50 1- 2- 00 07 MA ve EN 51 20 20 48 RT ZA 89 17 17 54 IA 0 57 PH IN AR E MA 10 CY MG #5 91 TA BL ET FL 60 05 06 16 30 00 WA Ac UT 43 -0 -0 .0 00 L- ti IC 20 1- 2- 00 07 MA ve 26 20 20 48 RT ON 41 17 17 54 E 5 88 PH IA AR OP MA CY 50 #5 MC 91 G SP RA Y LO 68 04 05 30 30 00 WA Ac SA 64 [...] HE #5 N 91 10 -3 25 IA 54 04 05 30 30 00 WA [...] 17 17 53 E 5 94 PH IA AR OP MA CY 50 #5 MC 91 G SP RA Y LI 68 03 04 30 30 00 WA Ac SI 18 -2 -2 .0 00 L- ti NO 00 7- 8- 00 07 MA ve IA 51 20 20 47 RT IL 20 [...] 50 7- 8- 00 07 MA ve IL 54 20 20 47 RT N 55 [...] ve LO 52 20 20 47 RT IA 05 17 17 87 AM 4 72 PH AR 20 MA CY MG #5 TA 91 BL ET AT 00 03 04 30 30 00 WA Ac EN 78 -2 -2 .0 00 L- ti OL 11 7- 8- 00 07 MA ve OL 07 20 20 47 RT 80 17 17 87 25 1 73 PH AR MG MA CY TA BL #5 ET 91 CY 68 03 04 30 30 00 WA Ac CL 64 -2 -2 .0 00 L- ti OB 50 8- 8- 00 07 MA ve EN 51 20 20 47 RT ZA 89 17 17 90 IA 0 45 PH IN AR E MA 10 CY MG #5 91 TA BL ET IA 54 03 04 30 30 00 WA Ac AV 45 -1 -1 .0 00 L- ti 80 4- 4- 00 07 MA ve TA 92 20 20 46 RT TI 51 17 17 08 N 0 72 PH SO AR DI MA UM CY 40 #5 91 MG TA B ES 68 02 03 30 30 00 WA Ac CI 64 -2 -3 .0 00 L- ti TA 50 4- 1- 00 07 MA ve LO 52 20 20 46 RT IA 05 17 17 08 AM 4 69 PH AR 20 MA CY MG #5 TA 91 BL ET AL 16 02 03 30 30 00 WA Ac LO 71 -2 -3 .0 00 L- ti PU 40 4- 1- 00 07 MA ve RI 04 20 20 46 RT NO 10 17 17 08 L 7 66 PH 10 AR 0 MA MG CY TA #5 BL 91 ET OM 60 02 03 30 30 00 WA Ac EP 50 [...] N 91 10 -3 25 ME 68 02 03 60 30 00 WA Ac TF 64 -2 -3 .0 00 L- ti OR 50 4- 1- 00 07 MA ve IL 54 20 20 47 RT N 55 [...] CY ST #5 ST 91 RI PS ON 53 02 03 10 31 00 [...] 47 RT ZA 89 17 17 32 IA 0 32 PH IN AR E MA 10 CY MG #5 91 TA BL ET IA 00 02 03 30 30 00 WA [...] 17 17 53 E 5 94 PH IA AR OP MA CY 50 #5 MC 91 G SP RA Y CY 68 01 02 30 30 00 WA Ac CL 64 -2 -2 .0 00 L- ti OB 50 3- 4- 00 07 MA ve EN 51 20 20 46 RT ZA 89 17 17 08 IA 0 68 PH IN AR E MA [...] 91 CA PS UL E AL 16 01 02 30 30 00 WA Ac LO [...] ES 68 01 02 30 30 00 WA Ac CI 64 -2 -2 .0 00 L- ti TA 50 3- 4- 00 07 MA ve LO 52 20 20 46 RT IA 05 17 17 08 AM 4 69 PH AR 20 MA CY MG #5 TA 91 BL ET ME 23 01 02 60 30 00 WA Ac TF 15 -2 -2 .0 00 L- ti OR 50 3- 4- 00 07 MA ve IL 10 20 20 46 RT N 41 17 17 63 HC 0 10 PH L AR 1, MA 00 CY 0 MG #5 91 TA BL ET AZ 59 01 02 6. 5 00 WA Ac IT 76 -2 -2 00 00 L- ti HR 23 3- 4- 0 07 MA ve OM 06 20 20 46 RT YC 00 17 17 63 IN 1 11 PH AR 25 MA 0 CY MG #5 TA 91 BL ET OX 00 01 90 30 00 WA Ac YC 40 -2 -2 .0 00 L- ti OD 60 4- 4- 00 02 MA ve ON 52 20 20 23 RT E- 30 17 17 88 AC 1 05 PH ET AR AM MA IN CY OP HE #5 N 91 10 -3 25 AL 16 12 30 30 00 WA Ac LO 71 -2 -2 .0 00 L- ti PU 40 7- 7- 00 07 MA ve RI 04 20 20 46 RT NO 10 16 17 08 L 7 66 PH 10 AR 0 MA MG CY TA #5 BL 91 ET AT 00 12 30 30 00 WA Ac EN 78 [...] 46 RT ZA 09 16 17 08 IA 0 68 PH IN AR E MA 10 CY MG #5 91 TA BL ET ES 68 12 30 30 00 WA Ac CI 64 -2 -2 .0 00 L- ti TA 50 7- 7- 00 07 MA ve LO 52 20 20 46 RT IA 05 16 17 08 AM 4 69 PH AR 20 MA CY MG #5 TA 91 BL ET OM 60 12 30 30 00 WA Ac EP 50 -2 -2 .0 00 L- ti RA 53 7- 7- 00 07 MA ve ZO 95 [...] HE #5 N 91 10 -3 25 IA 54 12 01 30 30 00 WA Ac AV 45 [...] 20 7- 7- 00 07 MA ve IL 75 20 20 46 RT N 81 [...] 16 17 56 E 5 83 PH IA AR OP MA CY 50 #5 MC 91 G SP RA Y OX 00 02 02 0 90 30 WA 22 GA Ac YC 40 -0 -0 0. L- 33 IN ti OD 60 6- 6- 00 MA 92 EY ve ON 52 20 20 0 RT 1 E- 30 16 16 IL AC 1 PH CH ET AR AE AM MA L IN CY S OP # HE N 10 10 05 -3 91 25 ON 53 01 02 0 50 25 WA 88 GA Ac ET 88 -1 -0 0. L- 32 IN ti OU 50 5- 5- 00 MA 98 EY ve CH 24 20 20 0 RT 1 45 16 16 IL UL 0 PH CH TR AR AE A MA L TE CY S ST # ST 10 RI 05 PS 91 AL 16 01 02 2 30 30 WA 73 GA Ac LO 71 -0 -0 0. L- 94 IN ti PU 40 6- 5- 00 MA 01 EY ve RI 04 20 20 0 RT 2 NO 10 16 16 IL L 7 PH CH 10 AR AE 0 MA L MG CY S # TA BL 10 ET 05 91 GE 31 01 02 2 60 30 WA 73 GA Ac MF 72 -0 -0 0. L- 94 IN ti IB 20 6- 5- 00 MA 01 EY ve RO 22 20 20 0 RT 5 ZI 50 16 16 IL L 5 PH CH 60 AR AE 0 MA L MG CY S # TA BL 10 ET 05 91 AT 51 01 02 2 30 30 WA 73 GA Ac EN 07 -0 -0 0. L- 94 IN ti OL 90 6- 5- 00 MA 01 EY ve OL 75 20 20 0 RT 7 96 16 16 IL 25 3 PH CH AR AE MG MA L CY S TA # BL ET 10 05 91 ES 68 01 02 2 30 30 WA 73 GA Ac CI 64 -0 -0 0. L- 94 IN ti TA 50 6- 5- 00 MA 01 EY ve LO 44 20 20 0 RT 4 IA 77 16 16 IL AM 0 PH CH AR AE 20 MA L CY S MG # TA 10 BL 05 ET 91 OM 60 01 02 2 30 30 WA 73 GA Ac EP 50 -0 -0 0. L- 94 IN ti RA 53 6- 5- 00 MA 01 EY ve ZO 95 20 20 0 RT 3 LE 20 16 [address] AR AE MA L 20 CY S # MG 10 CA 05 PS 91 UL E CY 68 02 02 0 [address] Ac CL 64 -0 -0 0. L- 99 ON ti OB 50 5- 5- 00 MA 84 E ve EN 45 20 20 0 RT 3 DI ZA 09 16 16 XI IA 0 PH E IN AR D E MA 10 CY # MG 10 TA 05 BL 91 ET IA 54 01 02 2 30 30 WA 73 GA Ac AV 45 -0 -0 0. L- 94 IN ti 80 6- 5- 00 MA 01 EY ve TA 92 20 20 0 RT 6 TI 51 16 16 IL N 0 PH CH SO AR AE DI MA L UM CY S # 40 10 MG 05 91 TA B Immunization Name Date Rout CVX Reac Dose [...] S 0.5 ML DOSA GE IM USE Procedures Procedure DOS Code Location Performer Comment CT THORAX 31933 [facility] 7 MEDICAL W/[place] [address] [facility] ABDOMEN & 7 MEDICAL PELVIS IMAGING W/CONTRAS ASS T MATERIAL CONTINUOU E0601 [facility] 7 [...] AIRWAY EQUIPME EQUIPME PRESSURE DEVICE DRUG TEST 28667 [facility] QUAL DIR INC INC OPTICAL OBS PER DAY CONTINUOU E0601 [facility] S 7 HOME HOME POSITIVE MEDICAL MEDICAL AIRWAY EQUIPME EQUIPME PRESSURE DEVICE DRUG TEST 20686 [facility] PRSMV 7 [facility] QUAL DIR INC INC OPTICAL OBS PER DAY CONTINUOU E0601 [facility] TRINH S 7 HOME HOME POSITIVE MEDICAL MEDICAL AIRWAY EQUIPME EQUIPME PRESSURE DEVICE COMPREHEN 75526 [facility] SIVE 7 [facility] METABOLIC INC INC PANEL COLLECTIO 56931 [facility] N VENOUS 7 MEM [facility] BLOOD INC INC VENIPUNCT URE HEMOGLOBI 58149 [facility] N 7 [facility] GLYCOSYLA INC INC ERICA A1C CONTINUOU E0601 [facility] TRINH S 7 HOME HOME POSITIVE MEDICAL MEDICAL AIRWAY EQUIPME EQUIPME PRESSURE DEVICE HOSPITAL [address] [facility] 7 PHYSICIAN DAY S GROUP MANAGEMEN T 30 MIN/< FINAL G9638 [facility] 7 MEDICAL W/O DOC IMAGING 1/[place] [address] [place] [facility] ABDOMEN & 7 MEDICAL PELVIS IMAGING W/O ASS CONTRAST MATERIAL SBSQ 39725 [facility] 7 PHYSICIAN CARE/DAY S GROUP 15 MINUTES FINAL G9551 [facility] REPR ABD 7 MEDICAL IMAG STS IMAGING W/O ASS INCIDNT FND LES NTD: INITIAL [address] [place] [address] PHYSICIAN CARE/DAY S GROUP 50 MINUTES CONTINUOU E0601 [facility] TRINH S 7 HOME HOME POSITIVE MEDICAL MEDICAL AIRWAY [place] [address] [facility] & 7 MEDICAL PELVIS IMAGING W/O ASS CONTRAST MATERIAL DRUG TST G0477 [facility] PRESUMP;C 6 [facility] PBL BEING INC INC READ DC OPT OBV ONLY DRUG TEST G0481 [facility] DEFINITV [address] ID INC INC METH P DAY 8-[address] [place] [address] NIV[facility] SALAS ABDOMEN & 6 MEDICAL PELVIS IMAGING W/O ASS CONTRAST MATERIAL POLYSOM 35587 [facility] PAVEZ 6/>YRS 6 PHYSICIAN SLEEP S GROUP W/CPAP 4/> ADDL DEMETRIUS ATTND CONTINUOU E0601 G[facility]RI GAYATHRI S 6 HOME HOME POSITIVE MEDICAL MEDICAL AIRWAY EQUIPME EQUIPME PRESSURE DEVICE DRUG TEST G0481 [facility] DEFINITV [address] ID INC INC METH P DAY 8-[address] OPHTH 60978 [facility] DANNI MEDICAL 6 AYAH AYAH XM&EVAL COMPRE NEW PT 1/> VST CONTINUOU E0601 GAYATHRI GAYATHRI S 6 HOME HOME POSITIVE MEDICAL MEDICAL AIRWAY EQUIPME EQUIPME PRESSURE DEVICE FILTER A7039 GAYATHRI GAYATHRI NON 6 HOME HOME DISPBL MEDICAL MEDICAL USED EQUIPME EQUIPME W/POS ARWAY PRESS DEVICE FULL FACE A7030 [facility]RI GAYATHRI MASK 6 HOME HOME USED MEDICAL MEDICAL W/POS EQUIPME EQUIPME 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 A7038 [facility]RI AGYATHRI DISPBL 6 HOME HOME USED MEDICAL MEDICAL W/POS EQUIPME EQUIPME ARWAY PRESSURE DEVICE HUMDIFIR E0562 GAYATHRI GAYATHRI HEATED 6 HOME HOME USED MEDICAL MEDICAL W/POS EQUIPME EQUIPME ARWAY PRESSURE DEVICE HEADGEAR A7035 GAYATHRI GAYATHRI USED 6 HOME HOME W/POSITIV MEDICAL MEDICAL E AIRWAY EQUIPME EQUIPME PRESSURE DEVICE TUBING A7037 GAYATHRI GAYATHRI USED WITH 6 HOME HOME POSITIVE MEDICAL MEDICAL AIRWAY EQUIPME EQUIPME PRESSURE DEVICE DRUG TEST G0481 [facility] DEFINITV [address] ID INC INC METH P DAY 8-14 DRUG CL SLEEP STD 48524 [facility] AIRFLOW 6 [facility] HRT INC INC RATE&O2 SAT EFFORT UNATT IM ADM [id number] [facility] PRQ ID 6 PHYSICIAN JASMYNE SUBQ/IM S GROUP NJXS 1 VACCINE DRUG TST G0477 [facility] PRESUMP;C 6 [facility] PBL BEING INC INC READ DC OPT OBV ONLY IIV 72652 [facility] ADJUVANTE 6 PHYSICIAN JASMYNE D VACCINE S GROUP FOR INTRAMUSC ULAR USE BONE 27591 [facility] &/JOINT 6 [facility] IMAGING INC INC WHOLE BODY TECHNETIU A9503 [facility] M TC-99M 6 [facility] MEDRONATE INC INC DX UP TO 30 MCI BLOOD 23053 [facility] COUNT 6 [facility] COMPLETE INC INC AUTO&AUTO DIFRNTL WBC COMPREHEN 68899 [facility] SIVE 6 [facility] METABOLIC INC INC PANEL COLLECTIO 34235 [facility] N VENOUS 6 [facility] BLOOD INC INC VENIPUNCT URE DRUG TST G0477 [facility] PRESUMP;C 6 [facility] PBL BEING INC INC READ DC OPT OBV ONLY DRUG TEST G0481 [facility] DEFINITV [address] [address] [facility] [address] ID INC INC METH P DAY 8-14 DRUG CL COMPREHEN 42113 [facility] SIVE 6 [facility] [place] [address] [place] [facility] ABDOMEN & 6 MEDICAL PELVIS IMAGING W/[place] [address] [place] [facility] THORACIC 6 MEDICAL SPINE W/O IMAGING CONTRAST ASS [facility]ERIAL IN[facility] J[facility] DEXAMETHO S GROUP SONE SODIUM PHOSPHATE 1 MG DRUG TEST G0481 [facility] DEFINITV [address] [address] [address] ID INC INC METH P DAY 8-14 DRUG CL DRUG TST G0477 [facility] PRESUMP;C 6 [facility] PBL BEING INC INC READ DC OPT OBV ONLY THERAPEUT 54874 [facility] IC 6 PHYSICIAN JASMYNE PROPHYLAC S GROUP TIC/DX INJECTION SUBQ/IM DRUG TST G0477 [facility] PRESUMP;C 6 [facility] PBL BEING INC INC READ DC OPT OBV ONLY DRUG TEST G0481 [facility] DEFINITV [address] [facility] [address] [address] [address] ID INC INC METH P DAY 8-14 DRUG CL BLOOD 88495 [facility] COUNT 6 [facility] COMPLETE INC INC AUTO&AUTO DIFRNTL WBC UNCLASSIF J3490 [facility] IED DRUGS 6 [facility] INC INC CT THORAX 04804 [place] [facility] 6 MEDICAL W/CONTRAS IMAGING T ASS MATERIAL COMPREHEN 15545 [facility] SIVE 6 [facility] METABOLIC INC INC PANEL LOCM Q9967 [facility] [phone] [facility] MG/ML INC INC [place] [address] [facility] THYROID 6 [facility] STIMULATI [place] [address] [facility] UREA 6 [facility] NITROGEN INC INC QUANTITAT MENG COLLECTIO 55946 [facility] N VENOUS 6 [facility] BLOOD INC INC VENIPUNCT URE CREATININ 03526 [facility] E [facility]LOOD 6 [facility] [place] THORAX 25091 [facility] W/CONTRAS INC INC T MATERIAL UNCLASSIF J3490 ELENO JOHANSEN IED DRUGS 6 [place] [address] ELENO JOHANSEN ABDOMEN & 6 [facility] PELVIS INC INC W/CONTRAS T MATERIAL LOCM Q9967 ELENO JOHANSEN [phone] 6 [facility] MG/ML INC INC IODINE CONCENTRA TION PER ML COMPREHEN 10177 ELENO [facility]OHANSEN SIVE 6 [facility] METABOLIC INC INC PANEL BLOOD 81384 ELENOIVONNE JOHANSEN COUNT 6 [facility] COMPLETE INC INC AUTO&AUTO DIFRNTL WBC BLOOD 52288 ELENO ELENO COUNT 6 [facility] COMPLETE INC INC AUTO&[place] [address] EL[facility] JOHANSEN INFUSION 6 [facility] THERAPY/P INC INC ROPHYLAXI S /DX 1ST TO 1 HR BLOOD 80225 ELENO JOHANSEN COUNT 6 [facility] COMPLETE INC INC AUTO&AUTO DIFRNTL WBC BASIC 07823 ELENO JOHANSEN METABOLIC 6 [facility] PANEL INC INC CALCIUM TOTAL CHEMOTX 27982 ELENO JOHANSEN ADMN IV 6 [facility] NFS TQ UP INC INC 1 HR SBST/DRUG INJECTION J9299 [facility] 6 [facility] NIVOLUMAB INC INC 1 [place] [address] ELENO ELENO AMYLASE 6 [facility] INC COMPREHEN 85871 ELENO JOHANSEN SIVE 6 [facility] [place] [address] ELENO JOHANSEN LIPASE 6 [facility] INC INC BLOOD 36421 ELENO JOHANSEN COUNT 6 [facility] COMPLETE INC INC AUTO&AUTO DIFRNTL WBC BLOOD 62537 [facility] COUNT 5 [facility] COMPLETE INC INC AUTO&[place] [address] [place] [facility] ALL ABDOMEN & 5 MEDICAL PELVIS IMAGING W/CONTRAS ASS T MATERIAL CT THORAX 42862 [place] [facility] ALL 5 MEDICAL W/CONTRAS IMAGING T ASS MATERIAL COMPREHEN 03507 EL[facility]EN SIVE 5 [facility] METABOLIC INC INC PANEL COLLECTIO 12588 ELENO JOHANSEN N VENOUS 5 [facility] BLOOD INC INC VENIPUNCT URE CHEMOTX 05114 ELENO ELENO ADMN IV 5 [facility] NFS TQ UP INC INC 1 HR SBST/DRUG BLOOD 51563 EL[facility] JOHANSEN COUNT 5 [facility] COMPLETE INC INC AUTO&AUTO DIFRNTL WBC CHEMOTX 90995 ELENO JOHANSEN ADMN IV 5 [facility] NFS TQ UP INC INC 1 HR SBST/DRUG COMPREHEN 57174 ELENO JOHANSEN SIVE 5 [facility] METABOLIC INC INC PANEL BLOOD 19588 ELENO JOHANSEN COUNT 5 [facility] COMPLETE INC INC AUTO&AUTO DIFRNTL WBC BLOOD 70681 ELENO JOHANSEN COUNT 5 [facility] COMPLETE INC INC AUTO&AUTO DIFRNTL WBC CHEMOTX 73729 ELENO JOHANSEN ADMN IV 5 [facility] NFS TQ UP INC INC 1 HR SBST/DRUG IM ADM 84103 ON LICENSE OF [facility] PRQ ID 5 PHYSICIAN JASMYNE SUBQ/IM S GROUP NJXS 1 VACCINE IIV3 [id number] ON LICENSE OF [facility] VACCINE 5 PHYSICIAN JASMYNE SPLIT S GROUP VIRUS 0.5 ML DOSAGE IM USE CHEMOTX 16277 ELENO JOHANSEN ADMN IV 5 [facility] NFS TQ UP INC INC 1 HR SBST/DRUG LOCM Q9967 ELENO JOHANSEN [phone] 5 [facility] MG/ML INC INC IODINE CONCENTRA TION PER ML COLLECTIO 78562 ELENO JOHANSEN N VENOUS 5 [facility] BLOOD INC INC VENIPUNCT URE COMPREHEN 60889 ELENO JOHANSEN SIVE 5 [facility] [place] [address] ELENO JOHANSEN ABDOMEN 5 [facility] W/CONTRAS INC INC T MATERIAL BLOOD 83618 ELENO JOHANSEN COUNT 5 [facility] COMPLETE INC INC AUTO&AUTO DIFRNTL WBC CT THORAX 54909 ELENO JOHANSEN 5 [facility] W/CONTRAS INC INC T MATERIAL BLOOD 52815 ELENO JOHANSEN COUNT 5 [facility] COMPLETE INC INC AUTO&AUTO DIFRNTL WBC CHEMOTX 75493 ELENO JOHANSEN ADMN IV 5 [facility] NFS TQ UP INC INC 1 HR SBST/DRUG CHEMOTX 02660 ELENO JOHANSEN ADMN IV 5 [facility] NFS TQ UP INC INC 1 HR SBST/DRUG BLOOD 79423 LEENO JOHANSEN COUNT 5 [facility] COMPLETE INC INC AUTO&AUTO DIFRNTL WBC BLOOD 56818 ELENO JOHANSEN COUNT 5 [facility] COMPLETE INC INC AUTO&AUTO DIFRNTL WBC CHEMOTX 35989 ELENO JOHANSEN ADMN IV 5 [facility] NFS TQ UP INC INC 1 HR SBST/DRUG COMPREHEN 39476 ELENO ELENO SIVE 5 [facility] METABOLIC INC INC PANEL COMPREHEN 99283 ELENO JOHANSEN SIVE 5 [facility] METABOLIC INC INC PANEL CHEMOTX 72477 ELENO TAYLORON ADMN IV 5 [facility] NFS TQ UP INC INC 1 HR SBST/DRUG COLLECTIO 84369 ELENO JOHANSEN N VENOUS 5 [facility] BLOOD INC INC VENIPUNCT URE BLOOD 54853 ELEON JOHANSEN COUNT 5 [facility] COMPLETE INC INC AUTO&AUTO DIFRNTL WBC CHEMOTHER 28077 ELENO JOHANSEN APY ADMN 5 [facility] [place] [address] ELENO JOHANSEN ABDOMEN & 5 [facility] PELVIS INC INC W/CONTRAS T MATERIAL CT THORAX 91389 ELENO [facility]OHANSEN 5 [facility] W/CONTRAS INC INC T MATERIAL LOCM Q9967 ELENO JOHANSEN [phone] 5 [facility] MG/ML INC INC IODINE CONCENTRA TION PER ML COLLECTIO 87494 ELENO JOHANSEN N VENOUS 5 [facility] BLOOD INC INC VENIPUNCT URE COMPREHEN 36772 ELENO JOHANSEN SIVE 5 [facility] [address] ELENO JOHANSEN AMYLASE 5 [place] [address] ELENO JOHANSEN LIPASE 5 [facility] INC INC BLOOD 91854 ELENO JOHANSEN COUNT 5 [facility] COMPLETE INC INC AUTO&AUTO DIFRNTL WBC BLOOD 56909 ELENO JOHANSEN COUNT 5 [facility] COMPLETE INC INC AUTO&AUTO DIFRNTL WBC COMPREHEN 42975 ELENO JOHANSEN SIVE 5 [facility] METABOLIC INC INC PANEL COLLECTIO 66675 ELENO JOHANSEN N VENOUS 5 [facility] [place] [address] ELENO TAYLORON ERYTHROPO 5 [facility] [address] [facility]OM[facility] & 5 MEDICAL SHELIA PELVIS IMAGING W/O ASS CONTRAST MATERIAL [facility]OSPITAL 58409 [facility] DISCHARGE 5 CARE R H DAY ASSOCIATE MANAGEMEN S T 30 MIN/< SBSQ 04363 [facility] 5 CARE R H CARE/DAY ASSOCIATE 15 S MINUTES INITIAL 40584 [facility] INPATIENT 5 PHYSICIAN CONSULT S GROUP NEW/ESTAB PT 55 MIN INITIAL 41602 [facility] 5 CARE R H CARE/DAY [place] [address] [place] [address] [facility] ABDOMEN & 5 MEDICAL PELVIS IMAGING W/O ASS CONTRAST MATERIAL RADEX 12785 ELENO JOHANSEN SPINE 5 [facility] LUMBOSACR INC INC AL MINIMUM 4 VIEWS RADEX 47643 ELENO JOHANSEN SPINE 5 [facility] CERVICAL INC INC 4 OR 5 VIEWS HOSPITAL 18991 [facility] DISCHARGE 5 CARE R H DAY ASSOCIATE MANAGEMEN S T 30 MIN/< SBSQ 91223 [facility] 5 PHYSICIAN CARE/DAY S GROUP [address] THORAX 27715 [place] DANA W/O 5 MEDICAL SHELIA CONTRAST IMAGING MATERIAL ASS INITIAL 48371 [facility] 5 CARE R H CARE/DAY ASSOCIATE 50 S MINUTES INITIAL 92189 [facility] INPATIENT 5 PHYSICIAN CONSULT S GROUP NEW/ESTAB [place] [address] [place] [address] [facility] ABDOMEN & 5 MEDICAL SHELIA PELVIS IMAGING W/CONTRAS ASS T MATERIAL ECG 97621 [facility] ROUTINE 4 JOSE F IMT ECG EMERGENCY W/LEAST PHYS 12 LDS I&R ONLY LIPID 43960 [employer] RANDALL PANEL 4 URINLS 99923 JANZZES RANDALL DIP 4 STICK/TAB LET REAGNT NON-AUTO MICRSCPY METANEPHR 79873 [facility] [address] THORAX 43842 LEENO JOHANSEN 4 [facility] W/CONTRAS INC INC T MATERIAL LOCM Q9967 ELENO JOHANSEN [phone] 4 [facility] MG/ML INC [place] [address] DANA DANA ABDOMEN & 4 SHELIA SHELIA PELVIS W/O CONTRAST MATERIAL Encounters Encounter Start End Date Code Location Performer Type Date OFFICE 32891 [facility] OUTPATIEN 7 7 PHYSICIAN T VISIT S GROUP 15 MINUTES [facility]OSPITAL [facility] - 7 7 [facility] OUTPATIEN INC T OFFICE 42610 [facility] OUTPATIEN 7 7 PHYSICIAN T VISIT S GROUP 25 MINUTES OFFICE 28271 [facility] OUTPATIEN 7 7 PHYSICIAN T VISIT S GROUP 25 MINUTES HOSPITAL [facility] - 7 7 [facility] OUTPATIEN INC T OFFICE 13911 [facility] OUTPATIEN 7 7 PHYSICIAN T VISIT S GROUP 25 MINUTES HOSPITAL [facility] - 7 7 [facility] OUTPATIEN INC T OFFICE 18146 [facility] OUTPATIEN 7 7 PHYSICIAN T VISIT S GROUP 25 MINUTES HOSPITAL [facility] - 7 7 [facility] INPATIENT INC EMERGENCY 46118 DANAY LLAMAS DEPT 7 7 PHYSICIAN VISIT S, [facility] HIGH SEVERITY& THREAT [facility] OFFICE 40144 ELENO MTZ OUTPATIEN 6 6 [facility] T VISIT 5 HOSPITAL MINUTES [facility]OSP[facility] - 6 6 [facility] OUTPATIEN INC T OFFICE 81376 [facility] OUTPATIEN 6 6 PHYSICIAN T VISIT S GROUP 15 MINUTES EMERGENCY 29219 DANAY WHIPPLE DEPT 6 6 [facility] SE[facility] ELENO - 6 6 [facility] OUTPATIEN INC [facility] - 6 6 [facility] OUTPATIEN INC [facility] - 6 6 [facility] OUTPATIEN INC T OFFICE 61429 [facility] OUTPATIEN 6 6 PHYSICIAN JASMYNE T VISIT S GROUP 15 MINUTES HOSPITAL [facility] - 6 6 [facility] OUTPATIEN INC [facility] - 6 6 [facility] OUTPATIEN INC T OFFICE 77398 [facility] OUTPATIEN 6 6 PHYSICIAN JASMYNE T VISIT S GROUP 15 MINUTES OFFICE 97133 ELENO SMITH OUTPATIEN 6 6 [facility] 10 P MINUTES [facility] ELENO - 6 6 [facility] OUTPATIEN INC OFFICE 53598 ELENO SMITH OUTPATIEN 6 6 [facility] 15 P MINUTES [facility] - 6 6 [facility]PATIEN [facility] ELENO - 6 6 [facility] OUTPATIEN INC OFFICE 14844 [facility] OUTPATIEN 6 6 PHYSICIAN JASMYNE T VISIT S GROUP 15 MINUTES OFFICE 91241 [facility] OUTPATIEN 6 6 PHYSICIAN JASMYNE T VISIT 5 S GROUP MINUTES [facility]OSPITAL [facility] - 6 6 [facility] OUTPATIEN INC T EMERGENCY 73488 DANAY LLAMAS DEPT 6 6 PHYSICIAN JASMYNE VISIT S, [facility] HIGH SEVERITY& THREAT [facility] ELENO - 6 6 [facility] OUTPATIEN INC [facility] ELENO - 6 6 [facility] OUTPATIEN INC T OFFICE 72668 [facility] OUTPATIEN 6 6 PHYSICIAN JASMYNE T VISIT S GROUP 15 MINUTES OFFICE 22403 [facility] OUTPATIEN 6 6 PHYSICIAN JASMYNE T VISIT S GROUP 10 MINUTES HOSPITAL [facility] - 6 6 [facility] OUTPATIEN INC T OFFICE 89139 [facility] OUTPATIEN 6 6 PHYSICIAN JASMYNE T VISIT S GROUP 15 MINUTES OFFICE 91331 [facility] OUTPATIEN 6 6 PHYSICIAN JASMYNE T VISIT S GROUP 10 MINUTES OFFICE 53369 ELENO SMITH OUTPATIEN 6 6 [facility] T VISIT HOSPITAL 10 P MINUTES HOSPITAL [facility] - 6 6 [facility] OUTPATIEN INC T OFFICE 60001 [facility] OUTPATIEN 6 6 PHYSICIAN JASMYNE T VISIT S GROUP 10 MINUTES [facility]OSPITAL [facility] - 6 6 [facility] OUTPATIEN INC T [facility] - 6 6 [facility] OUTPATIEN INC T OFFICE 89655 ELENO SMITH OUTPATIEN 6 6 [facility] T VISIT [facility] 10 P MINUTES HOSPITAL [facility] - 6 6 [facility] OUTPATIEN INC T OFFICE 29350 [facility] OUTPATIEN 6 6 PHYSICIAN JASMYNE T VISIT S GROUP 10 MINUTES HOSPITAL [facility] - 6 6 [facility] OUTPATIEN INC T OFFICE 21062 ELENO SMITH OUTPATIEN 6 6 [facility] 10 P MINUTES HOSPITAL [facility] - 6 6 [facility] OUTPATIEN INC T OFFICE 46140 ELENO SMITH OUTPATIEN 6 6 [facility] T [facility]ISIT HOSPITAL 10 P MINUTES OFFICE 68794 [facility] OUTPATIEN 6 6 PHYSICIAN JASMYNE T VISIT S GROUP 15 MINUTES HOSPITAL [facility] - 6 6 [facility] OUTPATIEN INC T OFFICE 51227 ELENO SMITH OUTPATIEN 5 5 [facility] T [facility] 10 P [facility] - 5 5 [facility] ELENO - 5 5 [facility] OUTPATIEN INC T OFFICE 47788 [facility] OUTPATIEN 5 5 PHYSICIAN JASMYNE T VISIT S GROUP 10 MINUTES HOSPITAL [facility] - 5 5 [facility] OUTPATIEN [facility] ELENO - 5 5 [facility] OUTPATIEN INC T OFFICE 84665 ELENO SMITH OUTPATIEN 5 5 [facility] T VISIT 5 HOSPITAL MINUTES [facility]OSP[facility] - 5 5 [facility] OUTPATIEN [facility] T OFFICE 43641 [facility] OUTPATIEN 5 5 PHYSICIAN JASMYNE T VISIT S GROUP 10 MINUTES OFFICE 10578 ELENO SMITH OUTPATIEN 5 5 [facility] 10 P [facility] - 5 5 [facility] OUTPATIEN [facility] - 5 5 [facility] ELENO - 5 5 [facility] OUTPATIEN INC T OFFICE 23226 [facility] OUTPATIEN 5 5 PHYSICIAN JASMYNE T VISIT S GROUP 25 MINUTES [facility]OSP[facility] - 5 5 [facility] OUTPATIEN [facility] - 5 5 [facility] OUTPATIEN INC T OFFICE 79618 ELENO SMITH OUTPATIEN 5 5 [facility] T VISIT 5 HOSPITAL MINUTES P OFFICE 11319 [facility] OUTPATIEN 5 5 PHYSICIAN JASMYNE T VISIT S GROUP 10 MINUTES OFFICE 36884 ELENO SMITH OUTPATIEN 5 5 [facility] T VISIT 5 HOSPITAL MINUTES P [facility] - 5 5 [facility] OUTPATIEN INC T OFFICE 34966 [facility] OUTPATIEN 5 5 PHYSICIAN JASMYNE T VISIT S GROUP 15 MINUTES OFFICE 09500 ELENO SMITH OUTPATIEN 5 5 [facility] T VISIT HOSPITAL 10 P MINUTES OFFICE 99611 [facility] TOD OUTPATIEN 5 5 PHYSICIAN T VISIT S GROUP 15 MINUTES HOSPITAL [facility] - 5 5 [facility] OUTPATIEN INC T OFFICE 95093 [facility] TOD OUTPATIEN 5 5 PHYSICIAN T VISIT S GROUP 15 MINUTES [facility]OSP[facility] - 5 5 [facility]YS[facility] JASMYNE T VISIT S GROUP 15 MINUTES OFFICE 15206 EL[facility] SMITH OUTPATIEN 5 5 [facility] T VISIT H[facility] 10 P MINUTES HOSPITAL [facility] - 5 5 [facility] OUTPATIEN INC T EMERGENCY 49301 [facility] DEPT 5 5 PHYSICIAN JASMYNE VISIT S, PLLC HIGH SEVERITY& THREAT [facility] OFFICE 48432 [facility] OUTPATIEN 5 5 PHYSICIAN T VISIT S GROUP 15 MINUTES OFFICE 06472 ELENO SMITH OUTPATIEN [address] [facility] 45 HOSPITAL MINUTES P EMERGENCY 48335 [facility] DEPT 5 5 PHYSICIAN JASMYNE [facility] - 5 5 [facility] OUTPATIEN INC T OFFICE 77427 [facility] BAR[facility] OUTPATIEN 5 5 [facility] T VISIT URGENT 25 TREAT MINUTES OFFICE 22417 [facility] TOD OUTPATIEN 5 5 PHYSICIAN T VISIT S GROUP 15 MINUTES [facility]OSPITAL [facility] - 5 5 [facility] INPATIENT INC EMERGENCY 99089 ELENO LLAMAS 5 5 [facility] T VISIT P HIGH/URGE NT SEVERITY EMERGENCY 26230 [facility] ALFARIS 4 4 JOSE [facility] EMERGENCY T VISIT PHYS MODERATE SEVERITY EMERGENCY 44167 [facility] FRANCIS 4 4 JOSE F [facility] EMERGENCY T VISIT PHYS HIGH/URGE NT SEVERITY OFFICE 14951 HARSHAD RANDALL [facility] R[facility] OUTPATIEN 4 4 T VISIT 15 MINUTES OFFICE 11677 HARSH[facility] RANDALL [facility] OUTPATIEN 4 4 T VISIT 15 MINUTES OFFICE 08304 [facility]SH[facility] R[facility]ALL [facility] OUTPATIEN 4 4 T VISIT 25 MINUTES [facility]OSPITAL [facility] - 4 4 [facility] OUTPATIEN INC T OFFICE 33768 HARSHAD RANDALL HARSH[facility] RANDALL OUTPATIEN 4 4 T VISIT 25 MINUTES EMERGENCY 04950 [facility] DEPT 4 4 [facility] VISIT HIGH SEVERITY& THREAT FUNJ EMERGENCY 23987 ZENAIDA RANDALL ZENAIDA RANDALL 4 4 [facility] T VISIT MODERATE SEVERITY
--- OUTSIDE RECORDS SUMMARY | 2017-04-25 17:57 | External Medical Summary Rpt ---
Author Author , VITO Organization VITO Address Unknown Phone [email or web address] Providers Care Production Control Pegboard Clerk Name Role Phone ALFARIS MOH, ALFARIS Unavailable Unavailable MOH WILL BRO, WILL Unavailable Unavailable BRO BEINEKE, BEINEKE Unavailable Unavailable ROGER, ROGER Unavailable Unavailable ROGER ALL, ROGER ALL Unavailable Unavailable DANNI AYAH, DANNI Unavailable Unavailable AYAH DANNI AYAH, DANNI Unavailable Unavailable AYAH DANA SHELIA, Unavailable Unavailable DANA SHELIA DANA SHELIA, Unavailable Unavailable DANA SHELIA SMITH, SMITH Unavailable Unavailable SMITH PHI, Unavailable Unavailable SMITH PHI FARHDA, FARHAD Unavailable Unavailable FARHAD JASMYNE, FARHAD Unavailable Unavailable JASMYNE [facility] Unavailable Unavailable INC, [facility] Unavailable Unavailable HOSPITAL P, [facility], Unavailable Unavailable [facility] WHIPPLE, WHIPPLE Unavailable Unavailable JABARI NAN, JABARI Unavailable Unavailable NAN FRANCIS IMT, FRANCIS Unavailable Unavailable IMT [facility] Unavailable Unavailable IMAGING ASS, [facility] HARSHAD RANDALL, HARSHAD RANDALL Unavailable Unavailable HARSHAD RANDALL, HARSHAD RANDALL Unavailable Unavailable [facility] Unavailable Unavailable URGENT TREAT, [facility], Unavailable Unavailable [...] EMERGENCY PHYS [facility] # Unavailable Unavailable [id number], [facility] # [id number] Purpose Continuity of Care Document - 02-01-2014 through 2016 Problems Code Diagnosis DOS Provider Status C649 MALIGNANT 02-06-2017 [place] NEOPLASM MEDICAL UNS KIDNEY IMAGING ASS EXCEPT RENL PELVIS K5730 DIVERTICULO 02-06-2017 [place] SIS LG MEDICAL INTEST W/O IMAGING ASS PERF/ABSC W/O BLEED R590 LOCALIZED 02-06-2017 [place] ENLARGED MEDICAL LYMPH NODES IMAGING ASS R911 SOLITARY 02-06-2017 [place] PULMONARY MEDICAL NODULE IMAGING ASS E119 TYPE 2 02-03-2017 [facility] DIABETES PHYSICIANS MELLITUS GROUP WITHOUT COMPLICATIO NS I10 ESSENTIAL 02-03-2017 [facility] PRIMARY PHYSICIANS HYPERTENSIO GROUP N [id number] OTHER LONG 02-03-2017 [facility] TERM PHYSICIANS CURRENT GROUP DRUG THERAPY G4733 OBSTRUCTIVE 01-19-2017 [facility] SLEEP HOME APNEA ADULT MEDICAL PEDIATRIC EQUIPME J40 BRONCHITIS 10-06-2016 [facility] NOT PHYSICIANS SPECIFIED GROUP ACUTE OR CHRONIC C7989 SECONDARY 09-22-2016 [facility]IGNANT [facility] NEOPLASM INC OTH SPECIFIED SITES E118 TYPE 2 09-22-2016 [facility] DIABETES PHYSICIANS MELLITUS GROUP W/UNS COMPLICATIO NS E871 HYPO-OSMOLA 09-22-2016 [facility] LITY AND PHYSICIANS HYPONATREMI GROUP A K8590 ACUTE 09-22-2016 [facility] PANCREATITI PHYSICIANS S WO GROUP NECROSIS/IN FECTION UNSPEC Z720 TOBACCO USE 09-22-2016 [facility] C641 MALIGNANT 09-21-2016 [facility] NEOPLASM RT PHYSICIANS, KIDNEY PLLC EXCEPT RENAL PELVIS K8580 OTHER ACUTE 09-21-2016 [facility] PHYSICIANS, PANCREATITI PLLC S WO NECROSIS/IN FECTION R1032 LEFT LOWER 09-21-2016 [place] QUADRANT MEDICAL PAIN IMAGING ASS R109 UNSPECIFIED 09-21-2016 [place] ABDOMINAL MEDICAL PAIN IMAGING ASS R110 NAUSEA 09-21-2016 [facility] F06350 PERSONAL 09-21-2016 [place] HISTORY MEDICAL OTHER IMAGING ASS MALIGNANT NEOPLASM KIDNEY K5731 DIVERTICULO 09-03-2016 [facility] SIS LG PHYSICIANS, INTEST W/O PLLC PERF/ABSC W/BLEED R1031 RIGHT LOWER 09-03-2016 [place] QU[facility]ANT [facility] PAIN IMAGING ASS G4713 RECURRENT 08-27-2016 [facility] HYPERSOMNIA PHYSICIANS GROUP J984 OTHER 08-27-2016 [facility] DISORDERS PHYSICIANS OF LUNG GROUP H527 UNSPECIFIED 07-28-2016 DANNI AYAH DISORDER OF REFRACTION Z23 ENCOUNTER 06-16-2016 [facility] FOR [facility]IANS IMMUNIZATIO GROUP N M546 PAIN IN 05-13-2016 [place] THORACIC MEDICAL SPINE IMAGING ASS Z905 ACQUIRED 05-13-2016 [place] ABSENCE OF MEDICAL KIDNEY IMAGING ASS G4730 SLEEP APNEA 04-30-2016 [facility] PHYSICIANS UNSPECIFIED GROUP M7711 LATERAL 04-30-2016 [facility] EPICONDYLIT PHYSICIANS IS RIGHT GROUP ELBOW E875 HYPERKALEMI 04-24-2016 [facility] A PHYSICIANS GROUP 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 P UNSPECIFIED LUNG C7970 SECONDARY 02-18-2016 [facility] NEOPLASM HOSPITAL P UNS ADRENAL GLAND J302 OTHER 02-18-2016 [facility] SEASONAL PHYSICIANS ALLERGIC GROUP RHINITIS R918 OTHER 02-14-2016 [place] NONSPECIFIC MEDICAL ABNORMAL IMAGING ASS FINDING OF LUNG FIELD R739 HYPERGLYCEM 10-19-2015 [facility] IA PHYSICIANS UNSPECIFIED GROUP Z5111 ENCOUNTER 10-10-2015 [facility] P TIC CHEMOTHERAP Y Z5181 ENCOUNTER 08-22-2015 [place] [facility] THERAPEUTIC INC DRUG LEVEL MONITORING N281 CYST OF 06-29-2015 [place] KIDNEY MEDICAL ACQUIRED IMAGING ASS K97645 SENIOR CARE 06-14-2015 [facility] CURRENT USE PHYSICIANS OF OPIATE GROUP ANALGESIC 1890 MALIGNANT 06-04-2015 [facility] NEOPLASM OF [facility] KIDNEY INC EXCEPT PELVIS V5811 ENCOUNTER 06-04-2015 [facility] ANTINEOPLAS INC TIC CHEMOTHERAP Y V5869 LONG-TERM 05-15-2015 [facility] (CURRENT) PHYSICIANS USE OF GROUP OTHER MEDICATIONS 80402 OVERWEIGHT 04-23-2015 [facility] 4019 UNSPECIFIED 04-23-2015 [facility] ESSENTIAL PHYSICIANS HYPERTENSIO GROUP N 62082 DIVERTICULI 04-23-2015 [facility] TIS OF PHYSICIANS COLON GROUP 56592 DIVERTICULI 04-11-2015 [facility] TIS OF PHYSICIANS COLON WITH GROUP HEMORRHAGE 58077 ABDOMINAL 04-11-2015 [facility] PAIN, LEFT PHYSICIANS LOWER GROUP QUADRANT 87083 ABDOMINAL 04-11-2015 [facility] PAIN, PHYSICIANS PERIUMBILIC GROUP 07895 ABDOMINAL 04-11-2015 [facility] PAIN OTHER PHYSICIANS SPECIFIED GROUP SITE V1052 PERSONAL 04-11-2015 [facility] HISTORY OF PHYSICIANS MALIGNANT GROUP NEOPLASM OF KIDNEY 2559 UNSPECIFIED 04-06-2015 [place] DISORDER MEDICAL OF ADRENAL IMAGING ASS GLANDS 5180 PULMONARY 04-06-2015 [place] COLLAPSE MEDICAL IMAGING ASS 57482 UNSPEC 04-06-2015 [place] VENTRAL MEDICAL LUIS W/O IMAGING ASS MENTION OBST/GANGRE N 7856 ENLARGEMENT 04-06-2015 [place] OF LYMPH MEDICAL NODES IMAGING ASS 84549 ABDOMINAL 04-06-2015 [facility] PAIN, [facility] UNSPECIFIED INC SITE 92305 OTHER 04-06-2015 [place] NONSPECIFIC MEDICAL ABNORMAL IMAGING ASS FINDING OF LUNG FIELD 2724 OTHER AND 03-23-2015 [facility] UNSPECIFIED PHYSICIANS GROUP HYPERLIPIDE KEYON V4573 ACQUIRED 02-28-2015 [place] ABSENCE OF MEDICAL KIDNEY IMAGING ASS 2357 NEOPLASM 02-07-2015 [facility] P TRACH BRONCHUS&STEFANI NG 7231 CERVICALGIA 01-25-2015 [facility] 7245 UNSPECIFIED 01-25-2015 [place] BACKACHE MEDICAL IMAGING ASS 08182 DIVERTICULO 01-24-2015 [facility] COLON URGENT TREAT 5770 ACUTE 01-24-2015 [facility]ITI [facility]RG[facility] 7242 LUMBAGO 01-24-2015 [facility] URGENT TREAT 55985 LEUKOCYTOSI 01-10-2015 [facility] S PHYSICIANS UNSPECIFIED GROUP 4011 ESSENTIAL 01-10-2015 [facility] HYPERTENSIO PHYSICIANS N, BENIGN GROUP 90718 COR 01-10-2015 [facility] ATHEROSLERO PHYSICIANS UNSPEC GROUP TYPE VESSEL SHOSHONE-PAIUTE/NONA T 7880 RENAL COLIC 01-09-2015 [facility] 7881 DYSURIA 01-09-2015 [facility] 27555 SOLITARY 01-09-2015 [facility] PULMONARY [facility] NODULE INC 4739 UNSPECIFIED 07-18-2014 [facility] SIN[facility] N EMERGENCY PHYS 24179 PAIN IN 07-18-2014 [facility] JOINT, N EMERGENCY ANKLE AND PHYS FOOT 17549 TENOSYNOVIT 07-18-2014 [facility] IS OF FOOT N EMERGENCY AND ANKLE PHYS 5990 URINARY 06-16-2014 [facility] TRACT N EMERGENCY INFECTION PHYS SITE NOT SPECIFIED 7804 DIZZINESS 06-16-2014 [facility] AND N EMERGENCY GIDDINESS PHYS 86576 GENERALIZED 05-06-2014 HARSHAD RANDALL ANXIETY DISORDER 7248 OTHER 03-23-2014 HARSHAD RANDALL SYMPTOMS REFERABLE TO BACK 2374 NEOPLASM 02-21-2014 [facility] BHV OTH&UNSPEC ENDOCRN GLANDS 7840 HEADACHE 02-21-2014 [facility] 24876 DIARRHEA 02-21-2014 [facility] PEREIRA 2359 NEOPLASM 02-16-2014 [...] ve LO 52 20 20 48 RT NJ 05 17 17 95 AM 4 46 PH AR 20 MA CY MG #5 TA 91 BL ET FL 60 05 16 30 00 WA Ac UT 43 -2 -3 .0 00 L- ti IC 20 8- 0- 00 07 MA ve 26 20 20 48 RT ON 41 17 17 95 E 5 47 PH NJ AR OP MA CY 50 #5 MC 91 G SP RA Y ME 68 05 06 60 30 00 WA Ac TF 64 -2 -3 .0 00 L- ti OR 50 8- 0- 00 07 MA ve ME 54 20 20 48 RT N 55 [...] 48 RT ZA 89 17 17 95 NJ 0 45 PH IN AR E MA [...] 91 MG TA B OM 60 05 TN Ac EP 50 -2 -2 .0 00 L- ti RA 53 3- 3- 00 07 MA ve ZO 95 20 20 48 RT LE 20 17 [address] AR MA 20 CY MG #5 91 CA PS UL E GA 53 TN Ac BA 74 -2 -2 .0 00 L- ti PE 60 3- 3- 00 07 MA ve NT 10 20 20 48 RT IN 10 17 17 95 5 52 PH 10 AR 0 MA MG CY CA #5 PS 91 UL E OX 00 00 TN Ac YC 40 -2 -2 .0 00 L- ti OD 60 3- 3- 00 02 MA ve ON 52 20 20 24 RT E- 30 17 17 04 AC 1 42 PH ET AR AM MA IN CY OP HE #5 N 91 10 -3 25 NJ 54 05 03 13 30 00 TN Ac AV 45 -1 -1 .0 00 L- ti 80 5- 6- 00 07 MA ve TA 92 20 20 45 RT TI 51 17 17 53 N 0 95 PH SO AR DI MA UM CY 40 #5 91 MG TA B ES 68 00 TN Ac CI 64 -2 -0 .0 00 L- ti TA 50 8- 2- 00 07 MA ve LO 52 20 20 41 RT NJ 05 17 17 81 AM 4 82 PH AR 20 MA CY MG #5 TA 91 BL ET LI 54 04 03 13 30 00 TN Ac SI 45 -2 -0 .0 00 L- ti NO 80 8- 2- 00 07 MA ve NJ 99 20 20 47 RT IL 91 17 17 87 0 87 PH 2. AR 5 MA MG CY TA #5 BL 91 ET AT 00 00 TN Ac EN 78 -0 -0 .0 00 L- ti OL 11 1- 2- 00 07 MA ve OL 07 20 20 48 RT 80 17 17 54 25 1 53 PH AR MG MA CY TA BL #5 ET 91 AL 16 TN Ac LO 71 -0 -0 .0 00 [...] 50 1- 2- 00 07 MA ve ME 54 20 20 48 RT N 55 17 17 54 HC 9 56 PH L AR 1, MA 00 CY 0 MG #5 91 TA BL ET CY 68 05 06 30 30 00 WA Ac CL 64 -0 -0 .0 00 L- ti OB 50 1- 2- 00 07 MA ve EN 51 20 20 48 RT ZA 89 17 17 54 NJ 0 57 PH IN AR E MA 10 CY MG #5 91 TA BL ET FL 60 05 06 16 30 00 WA Ac UT 43 -0 -0 .0 00 L- ti IC 20 1- 2- 00 07 MA ve 26 20 20 48 RT ON 41 17 17 54 E 5 88 PH NJ AR OP MA CY 50 #5 MC [...] HE #5 N 91 10 -3 25 NJ 54 04 05 30 30 00 WA [...] 17 17 53 E 5 94 PH NJ AR OP MA CY 50 #5 MC 91 G SP RA Y LI 68 03 04 30 30 00 WA Ac SI 18 -2 -2 .0 00 L- ti NO 00 7- 8- 00 07 MA ve NJ 51 20 20 47 RT IL 20 [...] 50 7- 8- 00 07 MA ve ME 54 20 20 47 RT N 55 [...] ve LO 52 20 20 47 RT NJ 05 17 17 87 AM 4 72 [...] 47 RT ZA 89 17 17 90 NJ 0 45 PH IN AR E MA 10 CY MG #5 91 TA BL ET NJ 54 03 04 30 30 00 WA [...] ve LO 52 20 20 46 RT NJ 05 17 17 08 AM 4 69 [...] 50 4- 1- 00 07 MA ve ME 54 20 20 47 RT N 55 [...] 47 RT ZA 89 17 17 32 NJ 0 32 PH IN AR E MA 10 CY MG #5 91 TA BL ET NJ 00 02 03 30 30 00 WA [...] 17 17 53 E 5 94 PH NJ AR OP MA CY 50 #5 MC 91 G SP RA Y CY 68 01 02 30 30 00 WA Ac CL 64 -2 -2 .0 00 L- ti OB 50 3- 4- 00 07 MA ve EN 51 20 20 46 RT ZA 89 17 17 08 NJ 0 68 PH IN AR E MA [...] ve LO 52 20 20 46 RT NJ 05 17 17 08 AM 4 69 PH AR 20 MA CY MG #5 TA 91 BL ET ME 23 01 02 60 30 00 WA Ac TF 15 -2 -2 .0 00 L- ti OR 50 3- 4- 00 07 MA ve ME 10 20 20 46 RT N 41 [...] 46 RT ZA 09 16 17 08 NJ 0 68 PH IN AR E MA 10 CY MG #5 91 TA BL ET ES 68 12 30 30 00 WA Ac CI 64 -2 -2 .0 00 L- ti TA 50 7- 7- 00 07 MA ve LO 52 20 20 46 RT NJ 05 16 17 08 AM 4 69 [...] HE #5 N 91 10 -3 25 NJ 54 12 01 30 30 00 WA [...] 20 7- 7- 00 07 MA ve ME 75 20 20 46 RT N 81 [...] 16 17 56 E 5 83 PH NJ AR OP MA CY 50 #5 MC 91 G SP RA Y OX 00 02 02 0 90 30 WA 22 GA Ac YC 40 -0 -0 0. L- 33 IN ti OD 60 6- 6- 00 MA 92 EY ve ON 52 20 20 0 RT 1 E- 30 16 16 ME AC 1 PH CH ET AR AE AM MA L IN CY S OP # HE N 10 10 05 -3 91 25 ON 53 01 02 0 50 25 WA 88 GA Ac ET 88 -1 -0 0. L- 32 IN ti OU 50 5- 5- 00 MA 98 EY ve CH 24 20 20 0 RT 1 45 16 16 ME UL 0 PH CH TR AR AE A MA L TE CY S ST # ST 10 RI 05 PS 91 AL 16 01 02 2 30 30 WA 73 GA Ac LO 71 -0 -0 0. L- 94 IN ti PU 40 6- 5- 00 MA 01 EY ve RI 04 20 20 0 RT 2 NO 10 16 16 ME L 7 PH CH 10 AR AE 0 MA L MG CY S # TA BL 10 ET 05 91 GE 31 01 02 2 60 30 WA 73 GA Ac MF 72 -0 -0 0. L- 94 IN ti IB 20 6- 5- 00 MA 01 EY ve RO 22 20 20 0 RT 5 ZI 50 16 16 ME L 5 PH CH 60 AR AE 0 MA L MG CY S # TA BL 10 ET 05 91 AT 51 01 02 2 30 30 WA 73 GA Ac EN 07 -0 -0 0. L- 94 IN ti OL 90 6- 5- 00 MA 01 EY ve OL 75 20 20 0 RT 7 96 16 16 ME 25 3 PH CH AR AE MG MA L CY S TA # BL ET 10 05 91 ES 68 01 02 2 30 30 WA 73 GA Ac CI 64 -0 -0 0. L- 94 IN ti TA 50 6- 5- 00 MA 01 EY ve LO 44 20 20 0 RT 4 NJ 77 16 16 ME AM 0 PH CH AR AE 20 MA L CY S MG # TA 10 BL 05 ET 91 OM 60 01 02 2 30 30 WA 73 GA Ac EP 50 -0 -0 0. L- 94 IN ti RA 53 6- 5- 00 MA 01 EY ve ZO 95 20 20 0 RT 3 LE 20 16 16 ME [address] AR AE MA L 20 CY S # MG 10 CA 05 PS 91 UL E CY 68 02 02 0 [address] Ac CL 64 -0 -0 0. L- 99 ON ti OB 50 5- 5- 00 MA 84 E ve EN 45 20 20 0 RT 3 DI ZA 09 16 16 XI NJ 0 PH E IN AR D E MA 10 CY # MG 10 TA 05 BL 91 ET NJ 54 01 02 2 30 30 WA 73 GA Ac AV 45 -0 -0 0. L- 94 IN ti 80 6- 5- 00 MA 01 EY ve TA 92 20 20 0 RT 6 TI 51 16 16 ME N 0 PH CH SO AR AE [...] DOS Code Location Performer Comment CT THORAX [address] [facility] 7 MEDICAL W/[place] [address] [facility] ABDOMEN & 7 MEDICAL PELVIS IMAGING [...] AIRWAY EQUIPME EQUIPME PRESSURE DEVICE DRUG TEST 00979 [facility] PRSMV 7 [facility] QUAL DIR INC INC OPTICAL OBS PER DAY CONTINUOU E0601 [facility] TRINH S 7 HOME HOME POSITIVE MEDICAL MEDICAL AIRWAY EQUIPME EQUIPME PRESSURE DEVICE DRUG TEST 52969 [facility] PRSMV 7 [facility] QUAL DIR INC INC OPTICAL OBS PER DAY CONTINUOU E0601 [facility] TRINH S 7 HOME HOME POSITIVE MEDICAL MEDICAL AIRWAY EQUIPME EQUIPME PRESSURE DEVICE COMPREHEN 42977 [facility] SIVE 7 [facility] METABOLIC INC INC PANEL COLLECTIO 21033 [facility] N VENOUS 7 [facility] BLOOD INC INC VENIPUNCT URE HEMOGLOBI 10408 [facility] JOHANSEN N 7 [facility] GLYCOSYLA INC INC ERICA A1C CONTINUOU E0601 [facility] TRINH S 7 HOME HOME POSITIVE MEDICAL MEDICAL AIRWAY EQUIPME EQUIPME PRESSURE DEVICE HOSPITAL [address] [facility] 7 PHYSICIAN DAY S GROUP MANAGEMEN T 30 MIN/< FINAL G9638 [facility] REPOR[facility] 7 MEDICAL W/O DOC IMAGING 1/[place] [address] [place] [facility] ABDOMEN & 7 MEDICAL PELVIS IMAGING W/O ASS CONTRAST MATERIAL SBSQ 49496 [facility] 7 PHYSICIAN CARE/DAY S GROUP 15 MINUTES FINAL G9551 [facility] REPR ABD 7 MEDICAL IMAG STS IMAGING W/O ASS INCIDNT FND LES NTD: INITIAL [address] [place] [address] PHYSICIAN CARE/DAY S GROUP 50 MINUTES CONTINUOU E0601 GAYATHRI TRINH S 7 HOME HOME POSITIVE MEDICAL MEDICAL AIRW[place] [address] [facility] ABDOMEN & 7 MEDICAL PELVIS IMAGING W/O ASS CONTRAST MATERIAL DRUG TST G0477 [facility] PRESUMP;C 6 [facility] PBL BEING INC INC READ DC OPT OBV ONLY DRUG TEST G0481 [facility] DEFINITV [address] ID INC INC METH P DAY 8-[address] [place] [address] N[facility] ABDOMEN & 6 MEDICAL PELVIS IMAGING W/O ASS CONTRAST MATERIAL POLYSOM 11120 [facility] PAVEZ 6/>YRS 6 PHYSICIAN SLEEP S GROUP W/CPAP 4/> ADDL DEMETRIUS ATTND CONTINUOU E0601 GAYATHRI GAYATHRI S 6 HOME HOME POSITIVE MEDICAL MEDICAL AIRWAY EQUIPME EQUIPME PRESSURE DEVICE DRUG TEST G0481 [facility] DEFINITV [address] ID INC INC METH P DAY 8-14 DRUG CL OPHTH 55881 DANNI DANNI MEDICAL 6 AYAH AYAH XM&EVAL [...] 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 A7038 GAYATHRI GAYATHRI DISPBL 6 HOME HOME USED MEDICAL MEDICAL [...] P DAY 8-14 DRUG CL SLEEP STD 96314 [facility] AIRFLOW 6 [facility] HRT INC INC RATE&O2 SAT EFFORT UNATT IM ADM 70833 [facility] FAR[facility] PRQ ID 6 PHYSICIAN JASMYNE SUBQ/IM S GROUP NJXS 1 VACCINE DRUG TST G0477 [facility] J[facility]ANS[facility] PRESUMP;C 6 [facility] PBL BEING INC INC READ DC OPT OBV ONLY IIV 70089 [facility] FARH[facility] ADJUVANTE 6 PHYSICIAN JASMYNE D VACCINE S GROUP FOR INTRAMUSC ULAR USE BONE 44967 [facility] &/JOINT 6 [facility] IMAGING INC INC WHOLE BODY TECHNETIU A9503 [facility] M TC-99M 6 [facility] MEDRONATE INC INC DX UP TO 30 MCI BLOOD 17002 [facility] COUNT 6 [facility] COMPLETE INC INC AUTO&AUTO DIFRNTL WBC COMPREHEN 50751 [facility] SIVE 6 [facility] METABOLIC INC INC PANEL COLLECTIO 10531 [facility] N VENOUS 6 [facility] BLOOD INC INC VENIPUNCT URE DRUG TST G0477 [facility]ANSEN PRESUMP;C 6 [facility] PBL BEING INC INC READ DC OPT OBV ONLY DRUG TEST G0481 [facility] DEFINITV [address] ID INC INC METH P DAY 8-14 DRUG CL COMPREHEN 21723 [facility] SIVE 6 [facility] [place] [address] [place] [facility] ALL ABDOMEN & 6 MEDICAL PELVIS IMAGING W/[place] [address] [place] [facility] ALL THORACIC 6 MEDICAL SPINE W/O IMAGING CONTRAST ASS MATERIAL INJECTION J1100 [facility] PHYSICIAN JASMYNE DEXAMETHO S GROUP SONE SODIUM PHOSPHATE 1 MG DRUG TEST G0481 [facility] DEFINITV [address] ID INC INC METH P DAY 8-14 DRUG CL DRUG TST G0477 [facility] JOHANSEN PRESUMP;C 6 [facility] PBL BEING INC INC READ DC OPT OBV ONLY THERAPEUT 29187 [facility] IC 6 PHYSICIAN JASMYNE PROPHYLAC S GROUP TIC/DX INJECTION SUBQ/IM DRUG TST G0477 [facility] PRESUMP;C 6 [facility] PBL BEING INC INC READ DC OPT OBV ONLY DRUG TEST G0481 [facility] DEFINITV [address] ID INC INC METH P DAY 8-14 DRUG CL BLOOD 51025 [facility] COUNT 6 [facility] COMPLETE INC INC AUTO&AUTO DIFRNTL WBC UNCLASSIF J3490 [facility] IED DRUGS 6 [facility] INC INC CT THORAX 89116 [place] [facility] ALL 6 MEDICAL W/CONTRAS IMAGING T ASS MATERIAL COMPREHEN 54054 [facility] J[facility] SIVE 6 [facility] METABOLIC INC INC PANEL LOCM Q9967 EELNO JOHANSEN [phone] 6 [facility] MG/ML INC INC [place] [address] [facility] THYROID 6 [facility] STIMULATI [place] [address] [facility] UREA 6 [facility] NITROGEN INC INC QUANTITAT MENG COLLECTIO 61221 [facility] N VENOUS 6 [facility] BLOOD INC INC VENIPUNCT URE CREATININ 23391 [facility] E BLOOD 6 [facility] INC INC CT THORAX 74136 [facility] JOHANSEN 6 [facility] W/CONTRAS INC INC T MATERIAL UNCLASSIF J3490 [facility] IED DRUGS 6 [place] [address] [facility] ABDOMEN & 6 [facility] PELVIS INC INC W/CONTRAS T MATERIAL LOCM Q9967 [facility]EN [phone] 6 [facility] MG/ML INC INC IODINE CONCENTRA TION PER ML COMPREHEN 34313 [facility] SIVE 6 [facility] METABOLIC INC INC PANEL BLOOD 30756 ELENOIVONNE JOHANSEN COUNT 6 [facility] COMPLETE INC INC AUTO&AUTO DIFRNTL WBC BLOOD 17757 ELENO ELENO COUNT 6 [facility] COMPLETE INC INC AUTO&[place] [address] [facility] INFUSION 6 [facility] THERAPY/P INC INC ROPHYLAXI S /DX 1ST TO 1 HR BLOOD 93720 [facility] COUNT 6 [facility] COMPLETE INC INC AUTO&AUTO DIFRNTL WBC BASIC 02471 [facility] METABOLIC 6 [facility] PANEL INC INC CALCIUM TOTAL CHEMOTX 50154 [facility] ADMN IV 6 [facility] NFS TQ UP INC INC 1 HR SBST/DRUG INJECTION J9299 [facility]ANSEN 6 [facility] NIVOLUMAB INC INC 1 [place] [address] ELENO ELENO AMYLASE 6 [facility] INC INC COMPREHEN 26382 [facility] SIVE 6 [facility] [place] [address] [facility] LIPASE 6 [facility] INC INC BLOOD 06426 [facility]ANSEN COUNT 6 [facility] COMPLETE INC INC AUTO&AUTO DIFRNTL WBC BLOOD 24902 [facility] COUNT 5 [facility] COMPLETE INC INC AUTO&[place] [address] [place] [facility] ALL ABDOMEN & 5 MEDICAL PELVIS IMAGING W/CONTRAS ASS T MATERIAL CT THORAX 66556 [place] [facility] ALL 5 MEDICAL W/CONTRAS IMAGING T ASS MATERIAL COMPREHEN 27061 [facility] SIVE 5 [facility] METABOLIC INC INC PANEL COLLECTIO 36984 [facility]OHANSEN N VENOUS 5 [facility] BLOOD INC INC VENIPUNCT URE CHEMOTX 71137 ELENO ELENO ADMN IV 5 [facility] NFS TQ UP INC INC 1 HR SBST/DRUG BLOOD 02234 [facility]ANSEN COUNT 5 [facility] COMPLETE INC INC AUTO&AUTO DIFRNTL WBC CHEMOTX 76776 [facility]OHANSEN ADMN IV 5 [facility] NFS TQ UP INC INC 1 HR SBST/DRUG COMPREHEN 37093 [facility] SIVE 5 [facility] METABOLIC INC INC PANEL BLOOD 71479 [facility]ANSEN COUNT 5 [facility] COMPLETE INC INC AUTO&AUTO DIFRNTL WBC BLOOD 29038 ELENO [facility] COUNT 5 [facility] COMPLETE INC INC AUTO&AUTO DIFRNTL WBC CHEMOTX 43296 ELENO JOHANSEN ADMN IV 5 [facility] NFS TQ UP INC INC 1 HR SBST/DRUG IM ADM [id number] [facility] PRQ ID 5 PHYSICIAN JASMYNE SUBQ/IM S GROUP NJXS 1 VACCINE IIV3 [id number] [facility] VACCINE 5 PHYSICIAN JASMYNE SPLIT S GROUP VIRUS 0.5 ML DOSAGE IM USE CHEMOTX 33759 ELENO [facility]OHANSEN ADMN IV 5 [facility] NFS TQ UP INC INC 1 HR SBST/DRUG LOCM Q9967 ELENO JOHANSEN [phone] 5 [facility] MG/ML INC INC IODINE CONCENTRA TION PER ML COLLECTIO 77972 ELENO [facility] N VENOUS 5 [facility] BLOOD INC INC VENIPUNCT URE COMPREHEN 65938 ELENO [facility] SIVE 5 [facility] [place] [address] ELENO [facility] ABDOMEN 5 [facility] W/CONTRAS INC INC T MATERIAL BLOOD 90095 ELENO [facility] COUNT 5 [facility] COMPLETE INC INC AUTO&AUTO DIFRNTL WBC CT THORAX 97929 ELENO [facility] 5 [facility] W/CONTRAS INC INC T MATERIAL BLOOD 53666 ELENO [facility]EN COUNT 5 [facility] COMPLETE INC INC AUTO&AUTO DIFRNTL WBC CHEMOTX 73802 ELENO [facility]ANSEN ADMN IV 5 [facility] NFS TQ UP INC INC 1 HR SBST/DRUG CHEMOTX 73068 ELENO JOHANSEN ADMN IV 5 [facility] NFS TQ UP INC INC 1 HR SBST/DRUG BLOOD 53762 ELENO [facility]EN COUNT 5 [facility] COMPLETE INC INC AUTO&AUTO DIFRNTL WBC BLOOD 90976 ELENO [facility]EN COUNT 5 [facility] COMPLETE INC INC AUTO&AUTO DIFRNTL WBC CHEMOTX 54587 ELENO [facility]ANSEN ADMN IV 5 [facility] NFS TQ UP INC INC 1 HR SBST/DRUG COMPREHEN 20430 ELENO ELENO SIVE 5 [facility] METABOLIC INC INC PANEL COMPREHEN 16230 ELENO [facility] SIVE 5 [facility] METABOLIC INC INC PANEL CHEMOTX 01553 ELENO [place] ADMN IV 5 [facility] NFS TQ UP INC INC 1 HR SBST/DRUG COLLECTIO 49917 ELENO [facility] N VENOUS 5 [facility] BLOOD INC INC VENIPUNCT URE BLOOD 57230 ELENO [facility]ANSEN COUNT 5 [facility] COMPLETE INC INC AUTO&AUTO DIFRNTL WBC CHEMOTHER 41646 ELENO JOHANSEN APY ADMN 5 [facility] [place] [address] ELENO JOHANSEN ABDOMEN & 5 [facility] PELVIS INC INC W/CONTRAS T MATERIAL CT THORAX 23390 ELENO [facility] 5 [facility] W/CONTRAS INC INC T MATERIAL LOCM Q9967 ELENO JOHANSEN [phone] 5 [facility] MG/ML INC INC IODINE CONCENTRA TION PER ML COLLECTIO 86185 ELENO [facility]ANSEN N VENOUS 5 [facility] BLOOD INC INC VENIPUNCT URE COMPREHEN 92094 ELENO [facility]EN SIVE 5 [facility] [place] [address] ELENO JOHANSEN AMYLASE 5 [place] [address] ELENO [facility]ANSEN LIPASE 5 [facility] INC INC BLOOD 03729 ELENO [facility]ANSEN COUNT 5 [facility] COMPLETE INC INC AUTO&AUTO DIFRNTL WBC BLOOD 82008 ELENO [facility]ANSEN COUNT 5 [facility] COMPLETE INC INC AUTO&AUTO DIFRNTL WBC COMPREHEN 64513 ELENO [facility] SIVE 5 [facility] METABOLIC INC INC PANEL COLLECTIO 58066 ELENO [facility]EN N VENOUS 5 [facility] [place] [address] ELENO [place] ERYTHROPO 5 MIAMI [facility] [place] [place] [address] [facility] ABDOMEN & 5 MEDICAL SHELIA PELVIS IMAGING W/O ASS CONTRAST MATERIAL HOSPITAL [address] [facility] DISCHARGE 5 CARE R H DAY ASSOCIATE MANAGEMEN S T 30 MIN/< SBSQ 61868 [facility] 5 CARE R H CARE/DAY ASSOCIATE 15 S MINUTES INITIAL 55242 [facility] INPATIENT 5 PHYSICIAN CONSULT S GROUP NEW/ESTAB PT 55 MIN INITIAL 63631 [facility] 5 CARE R H CARE/DAY [place] [address] [place] [address] [facility] ALL ABDOMEN & 5 MEDICAL PELVIS IMAGING W/O ASS CONTRAST MATERIAL RADEX 16947 [facility] 5 [facility] LUMBOSACR INC INC AL MINIMUM 4 VIEWS RADEX 73993 [facility] 5 [facility] CERVICAL INC INC 4 OR 5 VIEWS HOSPITAL 55140 [facility] DISCHARGE 5 CARE R H DAY ASSOCIATE MANAGEMEN S T 30 MIN/< SBSQ 01950 [facility] 5 PHYSICIAN CARE/DAY S GROUP [address] THORAX [address] [place] DANA W/O 5 MEDICAL SHELIA CONTRAST IMAGING MATERIAL ASS INITIAL 96155 [facility] 5 CARE R H CARE/DAY ASSOCIATE 50 S MINUTES INITIAL 70827 [facility] INPATIENT 5 PHYSICIAN CONSULT S GROUP NEW/ESTAB [place] [address] [place] [address] [facility] ABDOMEN & 5 MEDICAL SHELIA PELVIS IMAGING W/CONTRAS ASS T MATERIAL ECG 79630 [facility] ROUTINE 4 JOSE F IMT ECG EMERGENCY W/LEAST PHYS 12 LDS I&R ONLY LIPID 61369 [employer] RANDALL PANEL 4 URINLS 45795 [facility] RANDALL DIP 4 STICK/TAB LET REAGNT NON-AUTO MICRSCPY METANEPHR 00402 [facility] [address] THORAX 99485 [facility] 4 [facility] W/CONTRAS INC INC T MATERIAL LOCM Q9967 [facility] [phone] 4 [facility] MG/ML [place] [address] DANA DANA ABDOMEN & 4 SHELIA SHELIA PELVIS W/O CONTRAST MATERIAL Encounters Encounter Start End Date Code Location Performer Type Date OFFICE 91270 [facility] OUT[facility] 7 7 PHYSICIAN T VISIT S GROUP 15 MINUTES [facility] - 7 7 [facility] INC T OFFICE 89815 [facility] 7 7 PHYSICIAN T VISIT S GROUP 25 MINUTES OFFICE 94771 [facility] 7 7 PHYSICIAN T VISIT S GROUP 25 MINUTES [facility] - 7 7 [facility]PATIEN INC T OFFICE 75879 [facility] 7 7 PHYSICIAN T VISIT S GROUP 25 MINUTES [facility] - 7 7 [facility]PATIEN INC T OFFICE 79008 [facility] 7 7 PHYSICIAN T VISIT S GROUP 25 MINUTES [facility] - 7 7 [facility] INPATIENT INC EMERGENCY 07025 DANAY LLAMAS DEPT 7 7 PHYSICIAN VISIT S, [facility] HIGH SEVERITY& THREAT [facility] OFFICE 18685 [facility]Z OUTPATIEN 6 6 [facility] T VISIT 5 HOSPITAL MINUTES [facility] - 6 6 [facility] OUTPATIEN INC T OFFICE 71162 [facility] 6 6 PHYSICIAN T VISIT S GROUP 15 MINUTES EMERGENCY 86432 DANAY WHIPPLE DEPT 6 6 PHYSIC[facility]IT [facility], [facility] - 6 6 [facility] OUTPATIEN INC [facility] - 6 6 [facility] - 6 6 [facility] OUTPATIEN INC T OFFICE 76477 [facility] 6 6 PHYSICIAN JASMYNE T VISIT S GROUP 15 MINUTES [facility] - 6 6 [facility] - 6 6 [facility] OUTPATIEN INC T OFFICE 60666 [facility] 6 6 PHYSICIAN JASMYNE T VISIT S GROUP 15 MINUTES OFFICE 22525 [facility] SM[facility] OUTPATIEN 6 6 [facility] [address] [facility] - 6 6 [facility] OUTPATIEN INC OFFICE 23559 [facility] OUTPATIEN 6 6 [facility] 15 P MINUTES HOSPITAL [facility] - 6 6 [facility] - 6 6 [facility] OUTPATIEN INC OFFICE 04737 [facility] 6 6 PHYSICIAN JASMYNE T VISIT S GROUP 15 MINUTES OFFICE 34912 [facility] 6 6 PHYSICIAN JASMYNE T VISIT 5 S GROUP MINUTES [facility] - 6 6 [facility] OUTPATIEN INC T EMERGENCY 73026 DANAY LLAMAS DEPT 6 6 PHYSICIAN JASMYNE VISIT S, [facility] HIGH SEVERITY& THREAT [facility] - 6 6 [facility]PATIEN INC [facility] - 6 6 [facility] OUTPATIEN INC T OFFICE 43768 [facility] 6 6 PHYSICIAN JASMYNE T VISIT S GROUP 15 MINUTES OFFICE 95401 [facility] 6 6 PHYSICIAN JASMYNE T VISIT S GROUP 10 MINUTES [facility] - 6 6 [facility] OUTPATIEN INC T OFFICE 36401 [facility] 6 6 PHYSICIAN JASMYNE T VISIT S GROUP 15 MINUTES OFFICE 96878 [facility] 6 6 PHYSICIAN JASMYNE T VISIT S GROUP 10 MINUTES OFFICE 79801 [facility] OUTPATIEN 6 6 [facility] T VISIT HOSPITAL 10 P MINUTES [facility]OSPITAL [facility] - 6 6 [facility] OUTPATIEN INC T OFFICE 88116 [facility] 6 6 PHYSICIAN JASMYNE T VISIT S GROUP 10 MINUTES [facility] - 6 6 [facility] T [facility] - 6 6 [facility] INC T OFFICE 03141 [facility] OUTPATIEN 6 6 [facility] T VISIT H[facility]PITAL 10 P MINUTES [facility]OSP[facility] - 6 6 [facility]PATIEN INC T OFFICE 17520 [facility] 6 6 PHYSICIAN JASMYNE T VISIT S GROUP 10 MINUTES [facility] - 6 6 [facility]PATIEN INC T OFFICE 18952 [facility] OUTPATIEN 6 6 [facility] T VISIT H[facility]PITAL 10 P MINUTES [facility]OSP[facility] - 6 6 [facility] OUTPATIEN INC T OFFICE 23218 [facility] SM[facility] OUTPATIEN 6 6 [facility] T VISIT HOSPITAL 10 P MINUTES OFFICE 33859 [facility] 6 6 PHYSICIAN JASMYNE T VISIT S GROUP 15 MINUTES [facility] - 6 6 [facility] OUTPATIEN INC T OFFICE 10659 [facility] OUTPATIEN 5 5 [facility] T VIS[facility] H[facility]PITAL 10 P [facility] - 5 5 [facility] OUTPATIEN COUNTS INCLUDE 234 BEDS AT [facility] - 5 5 [facility] OUTPATIEN INC T OFFICE 33583 [facility] 5 5 PHYSICIAN JASMYNE T VISIT S GROUP 10 MINUTES [facility] - 5 5 [facility] OUTPATIEN [facility] - 5 5 [facility] OUTPATIEN INC T OFFICE 56505 [facility] OUTPATIEN 5 5 [facility] T VISIT 5 HOSPITAL MINUTES [facility] - 5 5 [facility] OUTPATIEN [facility] T OFFICE 01530 [facility] 5 5 PHYSICIAN JASMYNE T VISIT S GROUP 10 MINUTES OFFICE 11084 [facility] SM[facility] OUTPATIEN 5 5 [facility] VISIT [facility] 10 P [facility] - 5 5 [facility] OUTPATIEN COUNTS [facility]CLUDE 234 BEDS AT [facility] - 5 5 [facility] OUTPATIEN COUNTS INCLUDE 234 BEDS AT [facility] - 5 5 [facility] OUTPATIEN INC T OFFICE 58993 [facility] 5 5 PHYSICIAN JASMYNE T VISIT S GROUP 25 MINUTES [facility] - 5 5 [facility] OUTPATIEN COUNTS INCLUDE 234 BEDS AT [facility] - 5 5 [facility] OUTPATIEN INC T OFFICE 43536 [facility] OUTPATIEN 5 5 [facility] T VISIT 5 HOSPITAL MINUTES P OFFICE 66021 [facility] 5 5 PHYSICIAN JASMYNE T VISIT S GROUP 10 MINUTES OFFICE 82720 [facility] OUTPATIEN 5 5 [facility] T VISIT 5 HOSPITAL MINUTES P [facility] - 5 5 [facility] OUTPATIEN INC T OFFICE 66136 [facility] OUT[facility] 5 5 PHYSICIAN JASMYNE T VISIT S GROUP 15 MINUTES OFFICE 73363 [facility] OUTPATIEN 5 5 [facility] T VISIT HOSPITAL 10 P MINUTES OFFICE 62616 [facility] OUTPATIEN 5 5 PHYSICIAN T VISIT S GROUP 15 MINUTES [facility] - 5 5 [facility] OUTPATIEN INC T OFFICE 62989 [facility] OUTPATI[facility] 5 5 PHYSICIAN T VISIT S GROUP 15 MINUTES [facility] - 5 5 [facility] INC T OFFICE 10510 [facility] 5 5 PHYSICIAN JASMYNE T VISIT S GROUP 15 MINUTES OFFICE 13632 [facility] OUTPATIEN 5 5 [facility] T VISIT HOSPITAL 10 P MINUTES [facility] - 5 5 [facility] OUTPATIEN INC T EMERGENCY 21427 [facility] DEPT 5 5 PHYSICIAN JASMYNE VISIT S, PLL[facility] HIGH SEVERITY& THREAT [facility] OFFICE 02032 [facility] OUTPATI[facility] 5 5 PHYSICIAN T VISIT S GROUP 15 MINUTES OFFICE 26048 [facility] OUTPATIEN 5 5 [facility] 45 HOSPITAL MINUTES P EMERGENCY 90392 [facility] DEPT 5 5 PHYSICIAN JASMYNE [facility]ISIT S, [facility] SE[facility]& [facility] - 5 5 [facility] OUTPATIEN INC T OFFICE 72068 [facility] OUTPATIEN 5 5 [facility] T VISIT URGENT 25 TREAT MINUTES OFFICE 96014 [facility] OUTPATIEN 5 5 PHYSICIAN T VISIT S GROUP 15 MINUTES [facility]OSP[facility] - 5 5 [facility] INPATIENT INC EMERGENCY 60544 [facility] LLAMAS 5 5 [facility] T VISIT P HIGH/URGE NT SEVERITY EMERGENCY 94993 [facility] ALFARIS 4 4 [facility]SE [facility] EMERGENCY T VISIT PHYS MODERATE SEVERITY EMERGENCY 94968 [facility] FRANCIS 4 4 JOSE F [facility] EMERGENCY T VISIT PHYS HIGH/URGE NT SEVERITY OFFICE 56171 [facility] OUTPATIEN 4 4 T VISIT 15 MINUTES OFFICE 56710 [facility] OUTPATIEN 4 4 T VISIT 15 MINUTES OFFICE 87307 [facility] OUTPATIEN 4 4 T VISIT 25 MINUTES HOSP[facility] - 4 4 [facility] OUTPATIEN INC T OFFICE 19153 [facility] OUTPATIEN 4 4 T VISIT 25 MINUTES EMERGENCY 85789 [facility] DEPT 4 4 [facility] BRO VISIT HIGH SEVERITY& THREAT [facility] EMERGENCY 74302 ZENA[facility] RANDALL ZENAIDA RANDALL 4 4 [facility] T VISIT MODERATE SEVERITY
--- OUTSIDE RECORDS SUMMARY | 2017-04-25 17:58 | External Medical Summary Rpt ---
Demographics Preferred Language Belgian Marital Status Unknown Roman Catholic Affiliation Unknown Race Unknown Ethnic Group Unknown Author Author VITO Address Unknown Phone Immunization No patient found.
--- OUTSIDE RECORDS SUMMARY | 2017-04-25 17:58 | External Medical Summary Rpt ---
Demographics Preferred Language Algerian Marital Status Unknown Lutheran Affiliation Unknown Race Unknown Ethnic Group Unknown Author Author VITO Address Unknown Phone Immunization No patient found.
--- NOTE | 2017-04-25 18:04 | Emergency Room Report ---
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 N Clinical Suspician of Infection? N Mental Status: 1 - Regular (Normal Baseline) Sepsis Risk:Low Sepsis Risk Have you (or family members/close friends) recently traveled outside the [place]? N If Yes, where/when: Have you had exposure to infectious disease within the past month? N TB? Other? Specify: 46 years old white male who developed LEFT lower quadrant and LEFT CVA pain. He denies dysuria or hematuria frequency. He denies nausea vomiting or diarrhea. He denies coffee-ground emesis or melanotic stool. He denies fever or chills. No chest pain or palpitations. He admits to having chronic low back pain. After reviewing records, the patient has metastsatic right renal cell carcinoma. he is on for chemotherapy and using oxycodon for pain management. Source patient, RN notes reviewed, family Exam Limitations no limitations ALLERGIES Coded Allergies: lisinopril (Mild, 01/28/17) Penicillins (09/21/16) Home Medications Reported Medications Atenolol (Atenolol) 25 MG PO DAILY Cyclobenzaprine Hcl (Cyclobenzaprine Hydrochloride) 10 MG PO DAILY #30 TAB Metformin HCL (Metformin) 500 MG PO BID Allopurinol 100 MG PO DAILY OMEPRAZOLE MAGNESIUM (Prilosec 20MG) 20 MG PO DAILY Escitalopram Oxalate (Escitalopram 20MG) 20 MG PO DAILY Oxycodone 10 Mg\[id number] (Oxycodone-Acetaminophen 10-325) 1 TAB PO TID Losartan Potassium (Losartan 50MG) 50 MG PO DAILY Gabapentin (Gabapentin 100MG) 100 MG PO TID Bacillus Coagulans (Probiotic) Lancets (Onetouch Lancets) Fluticasone Propionate (Flonase 50 Mcg Nasal [place]) Pravastatin Sodium (Pravachol) 40 MG PO DAILY #30 (Chad PIEDRA,[facility]) History Medical History General CAD? No Angina: No IA: No Hypertension? Yes Hyperlipidemia? Yes CHF? No DVT? No PE? No COPD? No Asthma? No Anemia? No GERD? No Gastric ulcers? No GI Bleed? No Hernia? Yes Thyroid Problems? No Hypothyroidism? No CVA? No Seizures? No Diabetes? Yes Insulin Dependent: No Insulin Pump: No Home FSBS? No Renal Insuffiency? No End Stage Renal Disease? No UTI? No Stones? No BPH? No GB Disease: Yes Nephritic Syndrome? No Asplenia? No Hepatitis? No Sickle Cell Disease? No Arthritis? No Migraines? No Cataracts? No Glaucoma? No MRSA? No HIV? No TB? No Anxiety? Yes Depression? Yes Cancer? Yes Site: RIGHT KIDNEY More? Yes Additional hx: PANCREATITIS, DIVERTICULITIS, HEART MURMUR, ENLARGED HEART, GOUT Immunization Hx DT/Tetanus 1-4 Years Ago Flu 2015-FSN Pneumonia Received In Past Surgical Hx Previous Surgery?Y RIGHT NEPHRECTOMY Gallbladder VENTRAL HERNIA REPAIR Hemorrhoidectomy COLONOSCOPY Family History Family Hx Diabetes Yes CAD No Hypertension Yes Hyperlipidemia Yes Cancer Yes TB No Social History Smoking Hx Smoker: Current Every Day Smoker Tobacco: Yes Type Cigarettes Packs/day < 1 Pack Alcohol Alcohol: No (Chad PIEDRA,Omari) Review of Systems All Other Systems Reviewed and Negative Constitutional no symptoms reported Eyes no symptoms reported ENT no symptoms reported. Respiratory no symptoms reported Cardiovascular no symptoms reported Gastrointestinal see HPI, abdominal pain Genitourinary no symptoms reported. Musculoskeletal no symptoms reported Skin no symptoms reported Psychiatric/Neurological no symptoms reported (Chad PIEDRA,Omari) Physical Exam Vital Signs Vital Signs Date Time Temp Pulse Resp B/P Pulse O2 O2 Flow FiO2 Ox Delivery Rate 04/25 2118 76 18 159/112 95 04/25 2111 20 04/25 1934 83 14 145/113 96 04/25 193 97.5 96 18 156/111 96 04/25 1814 87 18 139/97 96 04/25 1811 18 04/25 1720 97.8 86 20 161/109 96 - WBC >12,000 or <4,000 or 10% bands? 2 or more SIRS Criteria Met? B/P:161/109 MAP:126 Creatinine >2.0? UA output<0.5ml/kg/hr for 2 hrs? Platelet count >100,000? Lactate >2.0mmol/1? INR >1.2 or PTT > than 60 sec? Evidence of Organ Dysfunction? Provider documented clinical suspician of infection? N Sepsis Criteria Count: 1 Sepsis Risk: Low Sepsis Risk General Appearance normal appearance, WD/WN Eye Exam - bilateral eye normal exam, bilateral eye PERRL, bilateral eye EOMI Ear, Nose, Throat hearing grossly normal, normal ENT inspection Neck normal inspection, non-tender, supple, full range of motion Respiratory Status Yes: trachea midline, chest symmetrical, non tender chest. No: respiratory distress. Lung Sounds bilateral: normal breath sounds, lungs clear. 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 No Results/Orders Laboratory Tests 04/25/17 1815: Urine Color YELLOW, Urine Appearance CLEAR, Urine pH 6.0, Ur Specific [place] 1.020, Urine Protein 2+ H, Urine Ketones NEGATIVE, Urine Blood TRACE-INTACT, Urine Nitrate NEGATIVE, Urine Bilirubin NEGATIVE, Urine Urobilinogen 0.2, Ur Leukocyte Esterase NEGATIVE, Urine RBC OCC, Urine Bacteria TRACE, Urine Glucose 2+ H 04/25/17 1735: Sodium 133 L, Potassium 3.9, Chloride 97 L, Carbon Dioxide 29, BUN 12, Creatinine 1.1, Estimated Creat Clear 141, Estimated GFR (MDRD) 72, Glucose 240 H, Calcium 8.5, Total Bilirubin 0.3, AST 18, ALT 40.8, Alkaline Phosphatase 124 H, Creatine Kinase 67, CK-MB (CK-2) Rel Index 0.7, CK and CKMB Interp < 0.5, Troponin I < 0.02, Total Protein 7.2, Albumin 3.3 L, Globulin 3.9 H, Albumin/ Globulin Ratio 0.8 L, Amylase 52, Lipase 338, WBC 9.0, RBC 5.23, Hgb 15.1, Hct 44.4, MCV 84.9, RDW 15.1, Plt Count 203, MPV 7.3 L, Gran % 53.9, Gran # 4.8, Lymphocytes % 37.4, Monocytes % 4.9, Eosinophils % 3.1, Basophils % 0.7, Lymphocytes # 3.4, Monocytes # 0.4, Eosinophils # 0.3, Basophils # 0.1, PUBS MCHC 34.0, MCH 28.9 Current Medication Orders Sig/Carmencita Start time Last Medication Dose Route Stop Time Status Admin Sodium Chloride 1,000 ML .STK-MED ONE 04/25 2123 DC IV Promethazine HCl 0 .STK-MED ONE 04/25 2109 DC .ROUTE Hydromorphone HCl 0 .STK-MED ONE 04/25 2108 DC .ROUTE Hydromorphone HCl 1 MG ONCE ONE 04/25 2100 DC 04/25 IV 04/25 Promethazine HCl 12.5 MG ONCE ONE 04/25 2100 DC 04/25 IV 04/25 Sodium Chloride 25 ML ONCE ONE 04/25 2100 DC IV 04/25 2114 Ketorolac 30 MG ONCE ONE 04/25 1815 DC 04/25 Tromethamine IV 04/25 181 1811 Ketorolac 0 .STK-MED ONE 04/25 180 DC Tromethamine .ROUTE Sodium Chloride 10 ML PRN PRN 04/25 1730 AC IV 04/26 1727 Orders Procedure Date/time Status DIET-NOTHING BY MOUTH 04/[address] ABD & PELVIS W/O CONTRAST 04/[address] ABD/PELVIS REQ 04/25 1805 Active IV SALINE LOCK 04/25 1727 Active URINALYSIS/COMPLETE 04/25 1727 Complete LIPASE 04/25 172 Complete CBC WITH AUTO DIFF 04/25 1727 Complete CARDIAC ENZYMES 04/25 172 Complete CHEM 12 PROFILE 04/25 1727 Complete AMYLASE 04/25 1727 Complete Departure Departure Time of Disposition 1803 Disposition Still a Patient Condition STABLE Referrals Gloria PIEDRA,Cecil Randle (Family) Additional Instructions i discussed with the patient his labs, Ct scan is pending. i will transfer his care to Dr Acevedo who is his primary care physician. pending reevalution, Ct report and desposition. Discharge Counseling Counseled pt/family regarding diagnosis, test results, medications/RX, home care, follow up needs ED Critical Care Critical Care No If Critical Care minutes are documented, the time involved in the performance of seperately reportable procedures was not counted toward critical care time documented. I directly delivered medical care to this critically ill and/or injured patient. Timely evaluation and treatment was necessary to address the significant organ system(s) dysfunction present in this patient. (Omari Bonilla MD) Departure Clinical Impression Primary Impression: Left lower quadrant abdominal pain of unknown etiology Secondary Impressions: Primary cancer of right kidney with metastasis from kidney to other site (Yamileth Castro MD) at 2000 at 2124
--- NOTE | 2017-04-25 18:04 | Emergency Room Report ---
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 N Clinical Suspician of Infection? N Mental Status: 1 - Regular (Normal Baseline) Sepsis Risk:Low Sepsis Risk Have you (or family members/close friends) recently traveled outside the [place]? N If Yes, where/when: Have you had exposure to infectious disease within the past month? N TB? Other? Specify: 46 years old white male who developed LEFT lower quadrant and LEFT CVA pain. He denies dysuria or hematuria frequency. He denies nausea vomiting or diarrhea. He denies coffee-ground emesis or melanotic stool. He denies fever or chills. No chest pain or palpitations. He admits to having chronic low back pain. After reviewing records, the patient has metastsatic right renal cell carcinoma. he is on for chemotherapy and using oxycodon for pain management. Source patient, RN notes reviewed, family Exam Limitations no limitations ALLERGIES Coded Allergies: lisinopril (Mild, 01/28/17) Penicillins (09/21/16) Home Medications Reported Medications Atenolol (Atenolol) 25 MG PO DAILY Cyclobenzaprine Hcl (Cyclobenzaprine Hydrochloride) 10 MG PO DAILY #30 TAB Metformin HCL (Metformin) 500 MG PO BID Allopurinol 100 MG PO DAILY OMEPRAZOLE MAGNESIUM (Prilosec 20MG) 20 MG PO DAILY Escitalopram Oxalate (Escitalopram 20MG) 20 MG PO DAILY Oxycodone 10 Mg\[id number] (Oxycodone-Acetaminophen 10-325) 1 TAB PO TID Losartan Potassium (Losartan 50MG) 50 MG PO DAILY Gabapentin (Gabapentin 100MG) 100 MG PO TID Bacillus Coagulans (Probiotic) Lancets (Onetouch Lancets) Fluticasone Propionate (Flonase 50 Mcg Nasal [place]) Pravastatin Sodium (Pravachol) 40 MG PO DAILY #30 (Chad PIEDRA,[facility]) History Medical History General CAD? No Angina: No [place]: No Hypertension? Yes Hyperlipidemia? Yes CHF? No DVT? No PE? No COPD? No Asthma? No Anemia? No GERD? No Gastric ulcers? No GI Bleed? No Hernia? Yes Thyroid Problems? No Hypothyroidism? No CVA? No Seizures? No Diabetes? Yes Insulin Dependent: No Insulin Pump: No Home FSBS? No Renal Insuffiency? No End Stage Renal Disease? No UTI? No Stones? No BPH? No GB Disease: Yes Nephritic Syndrome? No Asplenia? No Hepatitis? No Sickle Cell Disease? No Arthritis? No Migraines? No Cataracts? No Glaucoma? No MRSA? No HIV? No TB? No Anxiety? Yes Depression? Yes Cancer? Yes Site: RIGHT KIDNEY More? Yes Additional hx: PANCREATITIS, DIVERTICULITIS, HEART MURMUR, ENLARGED HEART, GOUT Immunization Hx DT/Tetanus 1-4 Years Ago Flu 2015-FSN Pneumonia Received In Past Surgical Hx Previous Surgery?Y RIGHT NEPHRECTOMY Gallbladder VENTRAL HERNIA REPAIR Hemorrhoidectomy COLONOSCOPY Family History Family Hx Diabetes Yes CAD No Hypertension Yes Hyperlipidemia Yes Cancer Yes TB No Social History Smoking Hx Smoker: Current Every Day Smoker Tobacco: Yes Type Cigarettes Packs/day < 1 Pack Alcohol Alcohol: No (Chad PIEDRA,Omari) Review of Systems All Other Systems Reviewed and Negative Constitutional no symptoms reported Eyes no symptoms reported ENT no symptoms reported. Respiratory no symptoms reported Cardiovascular no symptoms reported Gastrointestinal see HPI, abdominal pain Genitourinary no symptoms reported. Musculoskeletal no symptoms reported Skin no symptoms reported Psychiatric/Neurological no symptoms reported (Chad PIEDRA,Omari) Physical Exam Vital Signs Vital Signs Date Time Temp Pulse Resp B/P Pulse O2 O2 Flow FiO2 Ox Delivery Rate 04/25 2118 76 18 159/112 95 04/25 2111 20 04/25 1934 83 14 145/113 96 04/25 193 97.5 96 18 156/111 96 04/25 1814 87 18 139/97 96 04/25 1811 18 04/25 1720 97.8 86 20 161/109 96 - WBC >12,000 or <4,000 or 10% bands? 2 or more SIRS Criteria Met? B/P:161/109 MAP:126 Creatinine >2.0? UA output<0.5ml/kg/hr for 2 hrs? Platelet count >100,000? Lactate >2.0mmol/1? INR >1.2 or PTT > than 60 sec? Evidence of Organ Dysfunction? Provider documented clinical suspician of infection? N Sepsis Criteria Count: 1 Sepsis Risk: Low Sepsis Risk General Appearance normal appearance, WD/WN Eye Exam - bilateral eye normal exam, bilateral eye PERRL, bilateral eye EOMI Ear, Nose, Throat hearing grossly normal, normal ENT inspection Neck normal inspection, non-tender, supple, full range of motion Respiratory Status Yes: trachea midline, chest symmetrical, non tender chest. No: respiratory distress. Lung Sounds bilateral: normal breath sounds, lungs clear. 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 No Results/Orders Laboratory Tests 04/25/17 1815: Urine Color YELLOW, Urine Appearance CLEAR, Urine pH 6.0, Ur Specific [place] 1.020, Urine Protein 2+ H, Urine Ketones NEGATIVE, Urine Blood TRACE-INTACT, Urine Nitrate NEGATIVE, Urine Bilirubin NEGATIVE, Urine Urobilinogen 0.2, Ur Leukocyte Esterase NEGATIVE, Urine RBC OCC, Urine Bacteria TRACE, Urine Glucose 2+ H 04/25/17 1735: Sodium 133 L, Potassium 3.9, Chloride 97 L, Carbon Dioxide 29, BUN 12, Creatinine 1.1, Estimated Creat Clear 141, Estimated GFR (MDRD) 72, Glucose 240 H, Calcium 8.5, Total Bilirubin 0.3, AST 18, ALT 40.8, Alkaline Phosphatase 124 H, Creatine Kinase 67, CK-MB (CK-2) Rel Index 0.7, CK and CKMB Interp < 0.5, Troponin I < 0.02, Total Protein 7.2, Albumin 3.3 L, Globulin 3.9 H, Albumin/ Globulin Ratio 0.8 L, Amylase 52, Lipase 338, WBC 9.0, RBC 5.23, Hgb 15.1, Hct 44.4, MCV 84.9, RDW 15.1, Plt Count 203, MPV 7.3 L, Gran % 53.9, Gran # 4.8, Lymphocytes % 37.4, Monocytes % 4.9, Eosinophils % 3.1, Basophils % 0.7, Lymphocytes # 3.4, Monocytes # 0.4, Eosinophils # 0.3, Basophils # 0.1, PUBS MCHC 34.0, MCH 28.9 Current Medication Orders Sig/Carmencita Start time Last Medication Dose Route Stop Time Status Admin Sodium Chloride 1,000 ML .STK-MED ONE 04/25 2123 DC IV Promethazine HCl 0 .STK-MED ONE 04/25 2109 DC .ROUTE Hydromorphone HCl 0 .STK-MED ONE 04/25 2108 DC .ROUTE Hydromorphone HCl 1 MG ONCE ONE 04/25 2100 DC 04/25 IV 04/25 Promethazine HCl 12.5 MG ONCE ONE 04/25 2100 DC 04/25 IV 04/25 Sodium Chloride 25 ML ONCE ONE 04/25 2100 DC IV 04/25 2114 Ketorolac 30 MG ONCE ONE 04/25 1815 DC 04/25 Tromethamine IV 04/25 181 1811 Ketorolac 0 .STK-MED ONE 04/25 180 DC Tromethamine .ROUTE Sodium Chloride 10 ML PRN PRN 04/25 1730 AC IV 04/26 1727 Orders Procedure Date/time Status DIET-NOTHING BY MOUTH 04/[address] ABD & PELVIS W/O CONTRAST 04/[address] ABD/PELVIS REQ 04/25 1805 Active IV SALINE LOCK 04/25 1727 Active URINALYSIS/COMPLETE 04/25 1727 Complete LIPASE 04/25 172 Complete CBC WITH AUTO DIFF 04/25 1727 Complete CARDIAC ENZYMES 04/25 172 Complete CHEM 12 PROFILE 04/25 1727 Complete AMYLASE 04/25 1727 Complete Departure Departure Time of Disposition 1803 Disposition Still a Patient Condition STABLE Referrals Gloria PIEDRA,Cecil Randle (Family) Additional Instructions i discussed with the patient his labs, Ct scan is pending. i will transfer his care to Dr Acevedo who is his primary care physician. pending reevalution, Ct report and desposition. Discharge Counseling Counseled pt/family regarding diagnosis, test results, medications/RX, home care, follow up needs ED Critical Care Critical Care No If Critical Care minutes are documented, the time involved in the performance of seperately reportable procedures was not counted toward critical care time documented. I directly delivered medical care to this critically ill and/or injured patient. Timely evaluation and treatment was necessary to address the significant organ system(s) dysfunction present in this patient. (Omari Bonilla MD) Departure Clinical Impression Primary Impression: Left lower quadrant abdominal pain of unknown etiology Secondary Impressions: Primary cancer of right kidney with metastasis from kidney to other site (Yamileth Castro MD) at 2000 at 2124
[2017-04-25 18:14] LABS: BUN 12 mg/dL (7-18); GFR (ESTIMATED) 72 ML/MIN (>60)
[2017-04-25 18:19] LABS: URINE BILIRUBIN - DIPSTICK NEGATIVE (NEG); URINE BLOOD TRACE-INTACT (NEG)
[2017-04-25 21:56] VITALS: BP 137/92
--- NOTE | 2017-04-26 09:08 | RADIOLOGY REPORT PS360 ---
CT ABD PELVIS W/O CONTRAST CLINICAL INDICATION: Generalized abdominal pain, left lower quadrant pain, left CVA pain, history of renal cancer, diverticulitis LLQ PAIN LEFT CVA PAIN ORDERING PHYSICIAN: Yamileth Castro MD PATIENT AGE: 46 years COMPARISON: 02/06/2017 TECHNIQUE: Axial images obtained with sagittal and coronal reformats. PROCEDURE: Oral Contrast: None IV Contrast: None . FINDINGS: Lower thorax: There are at least 3 nodular densities in the right lung base the largest of which is 12 mm with some irregularity of the margin and minimal cavitation. Consider chest CT for more thorough evaluation. Abdomen and pelvis: There is diffuse hepatic steatosis with hepatomegaly. Liver measures up to 27 cm in AP dimension. No obvious focal liver lesion evident. Liver evaluation is limited without IV contrast. Small peripheral area of calcification present on the right hepatic lobe medially as before. The spleen and left adrenal glands are unremarkable. The right adrenal gland is enlarged at 4.2 cm not significantly changed. There has been prior right nephrectomy. Probable small left renal cyst noted. There is mild eventration of the intra-abdominal wall. No intestinal obstruction or free air is evident. Unremarkable appendix. No evidence of diverticulitis. There is diverticulosis of the sigmoid and descending colon. No intestinal obstruction or free air. There is a lytic lesion involving left iliac wing increasing in prominence. IMPRESSION: 1. Enlarging nodules with cavitation in the right lung base consistent with metastasis. 2. No change right adrenal mass. Prior right recommended. 3. No acute intra-abdominal or pelvic finding. 4. Enlarging lytic lesion in the left iliac wing consistent with metastasis 5. Hepatomegaly
== END 2017-04-25 21:59 | disposition still patient (30) ==
LOC: ER 17:14
PROVIDERS: Emergency Medicine
DX: C64.1 Malignant neoplasm of right kidney, except renal pelvis (principal); R10.32 Left lower quadrant pain; I10 Essential (primary) hypertension; E11.9 Type 2 diabetes mellitus without complications; F41.8 Other specified anxiety disorders; Z72.0 Tobacco use

== ENCOUNTER → 2017-05-01 | Outpatient (CLI) | payer MEDICARE, MEDICAID ==
[2017-05-01 18:40] LABS: AMPHETAMINES/METAMPHETAMINES NEGATIVE ng/mL (<1000)
[2017-05-11 14:40] LABS: Opiates Negative (Cutoff=100)
== END ==
LOC: LAB 16:37
PROVIDERS: Emergency Medicine
DX: Z79.899 Other long term (current) drug therapy (principal)

== ENCOUNTER 2017-06-29 00:12 | Emergency (ER) | payer MEDICARE, MEDICAID ==
[~2017-06-29] VITALS: Ht 182.9 cm; Wt 117.9 kg
[~2017-06-29 00:12] MED LIST changes: +LOSARTAN POTAS100 MG PO; -LOSARTAN POTASS50 MG PO; -ONETOUCH LANCE1 EACH; +ONETOUCH LANCE1 EACH FS
[2017-06-29] MEDS ORDERED: CHANTIX1 TAB PO (00:24)
--- NOTE | 2017-06-29 00:30 | Emergency Room Report ---
History of Present Illness Time Seen by MD De Jesus Presenting Problem in Triage Pt arrived:Walked Presenting Problem:C/O EPIGASTRIC,ABDOMINAL AND BACK PAIN. C/O NAUSEA AND VOMITING. 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 N Clinical Suspician of Infection? N Mental Status: 1 - Regular (Normal Baseline) Sepsis Risk:Low Sepsis Risk Have you (or family members/close friends) recently traveled outside the [place]? N If Yes, where/when: Have you had exposure to infectious disease within the past month? N TB? Other? Specify: Source patient, RN notes reviewed, family, old records Exam Limitations no limitations Comment acute onset of abd pain with nausea with hx of renal cancer Cardiac Chest Pain Chest pain indicative of cardiac No Timing/Duration this evening Severity moderate ALLERGIES Coded Allergies: lisinopril (Mild, 01/28/17) Penicillins (09/21/16) Home Medications Reported Medications Atenolol (Atenolol) 25 MG PO DAILY Cyclobenzaprine Hcl (Cyclobenzaprine Hydrochloride) 10 MG PO DAILY #30 TAB Metformin HCL (Metformin) 500 MG PO BID Allopurinol 100 MG PO DAILY OMEPRAZOLE MAGNESIUM (Prilosec 20MG) 20 MG PO DAILY Escitalopram Oxalate (Escitalopram 20MG) 20 MG PO DAILY Oxycodone 10 Mg\[id number] (Oxycodone-Acetaminophen 10-325) 1 TAB PO TID VARENICLINE TARTRATE (Chantix) 1 TAB PO BID Losartan Potassium (Losartan 50MG) 50 MG PO DAILY Gabapentin (Gabapentin 100MG) 100 MG PO TID Lancets (Onetouch Lancets) Fluticasone Propionate (Flonase 50 Mcg Nasal [place]) Pravastatin Sodium (Pravachol) 40 MG PO DAILY #30 History Medical History General CAD? No Angina: No [place]: No Hypertension? Yes Hyperlipidemia? Yes CHF? No DVT? No PE? No COPD? No Asthma? No Anemia? No GERD? No Gastric ulcers? No GI Bleed? No Hernia? Yes Thyroid Problems? No Hypothyroidism? No CVA? No Seizures? No Diabetes? Yes Insulin Dependent: No Insulin Pump: No Home FSBS? No Renal Insuffiency? No End Stage Renal Disease? No UTI? No Stones? No BPH? No GB Disease: Yes Nephritic Syndrome? No Asplenia? No Hepatitis? No Sickle Cell Disease? No Arthritis? No Migraines? No Cataracts? No Glaucoma? No MRSA? No HIV? No TB? No Anxiety? Yes Depression? Yes Cancer? Yes Site: RIGHT KIDNEY More? Yes Additional hx: PANCREATITIS, DIVERTICULITIS, HEART MURMUR, ENLARGED HEART, GOUT Immunization Hx DT/Tetanus 1-4 Years Ago Flu 2016-17FSN Pneumonia Received In Past Surgical Hx Previous Surgery?Y RIGHT NEPHRECTOMY Gallbladder VENTRAL HERNIA REPAIR Hemorrhoidectomy COLONOSCOPY Family History Family Hx Diabetes Yes CAD No Hypertension Yes Hyperlipidemia Yes Cancer Yes TB No Social History Smoking Hx Smoker: Former Smoker Tobacco: No Packs/day < 1 Pack Alcohol Alcohol: No Drugs none Review of Systems All Other Systems Reviewed and Negative Constitutional denies fever Eyes denies drainage ENT denies: ear discharge, throat pain, throat swelling. Respiratory denies cough, denies shortness of breath Cardiovascular denies chest pain, denies syncope Gastrointestinal see HPI, abdominal pain, denies diarrhea, nausea, denies vomiting Genitourinary denies: dysuria, frequency, hesitancy, hematuria. Musculoskeletal denies back pain, denies joint pain, denies joint swelling, denies neck pain Skin denies rash Psychiatric/Neurological denies headache, denies seizure Physical Exam Vital Signs Vital Signs Date Time Temp Pulse Resp B/P Pulse O2 O2 Flow FiO2 Ox Delivery Rate 06/29 0216 20 06/29 0130 98.3 94 20 167/121 96 06/29 0037 24 06/29 0017 98.3 88 24 161/104 99 - WBC >12,000 or <4,000 or 10% bands? 2 or more SIRS Criteria Met? B/P:167/121 MAP:123 Creatinine >2.0? UA output<0.5ml/kg/hr for 2 hrs? Platelet count >100,000? Lactate >2.0mmol/1? INR >1.2 or PTT > than 60 sec? Evidence of Organ Dysfunction? Provider documented clinical suspician of infection? N Sepsis Criteria Count: 1 Sepsis Risk: Low Sepsis Risk General Appearance no apparent distress Eye Exam - bilateral eye PERRL, bilateral eye EOMI Ear, Nose, Throat normal ENT inspection Neck supple Respiratory Status No: respiratory distress. 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 No Results/Orders Laboratory Tests 06/29/1724: Creatine Kinase 40, CK-MB (CK-2) Rel Index 1.3, CK and CKMB Interp < 0.5, Troponin I < 0.02 06/29/1724: Sodium 120 L, Potassium 3.9, Chloride 84 L, Carbon Dioxide 27, BUN 13, Creatinine 1.4 H, Estimated Creat Clear 111, Estimated GFR (MDRD) 55, Glucose 435 H, Calcium 10.0, Total Bilirubin 0.3, AST 18, ALT 44, Alkaline Phosphatase 172 H, Total Protein 7.6, Albumin 4.2, Globulin 3.4 H, Albumin/Globulin Ratio 1.2, Amylase 56, Lipase 526 H, WBC 12.2 H, RBC 5.12, Hgb 14.8, Hct 43.1, MCV 84.3, RDW 15.0, Plt Count 237, MPV 7.6, Gran % 74.7, Gran # 9.1 H, Lymphocytes % 19.5, Monocytes % 3.7, Eosinophils % 1.6, Basophils % 0.5, Lymphocytes # 2.4, Monocytes # 0.5, Eosinophils # 0.2, Basophils # 0.1, PUBS MCHC 34.2, MCH 28.6 Current Medication Orders Sig/Carmencita Start time Last Medication Dose Route Stop Time Status Admin Hydromorphone HCl 1 MG ONCE ONE 06/29 300 DC IV 06/29 301 Ondansetron HCl 4 MG ONCE ONE 06/29 300 DC IV 06/29 301 Morphine Sulfate 6 MG ONCE ONE 06/29 215 DC 06/29 IV 06/29 Promethazine HCl 12.5 MG ONCE ONE 06/295 DC 06/29 IV 06/29 0216 0213 Sodium Chloride 25 ML ONCE ONE 06/29 0215 DC 06/29 IV 06/29 0229 0215 Promethazine HCl 0 .STK-MED ONE 06/29 021 DC .ROUTE Morphine Sulfate 0 .STK-MED ONE 06/29 0209 DC .ROUTE Sodium Chloride 25 ML .STK-MED ONE 06/29 0209 DC IV Insulin Human Regular 5 UNITS ONCE ONE 06/29 0200 DC 06/29 IVP 06/29 0201 0204 Sodium Chloride 1,000 ML .Q4H 06/29 0200 AC 06/29 IV 06/29 0559 0203 Sodium Chloride 10 ML PRN PRN 06/29 0200 AC IV 06/30 0153 Insulin Human Regular 0 .STK-MED ONE 06/29 015 DC .ROUTE Sodium Chloride 1,000 ML .STK-MED ONE 06/29 0157 DC IV Ondansetron HCl 0 .STK-MED ONE 06/29 0036 DC .ROUTE Hydromorphone HCl 0 .STK-MED ONE 06/29 0035 DC .ROUTE Hydromorphone HCl 1 MG ONCE ONE 06/29 0030 DC 06/29 IV 06/29 0031 0037 Ondansetron HCl 4 MG ONCE ONE 06/29 0030 DC 06/29 IV 06/29 0031 0037 Sodium Chloride 10 ML PRN PRN 06/29 0030 AC IV 06/30 0016 Orders Procedure Date/time Status DIET-NOTHING BY MOUTH 06/29 B Active CARDIAC ENZYMES 06/[address] ABD & PELVIS W/O CONTRAST 06/[address] SCAN REQ 06/29 0017 Active IV SALINE LOCK 06/29 0017 Active URINALYSIS/COMPLETE 06/29 0017 Active LIPASE 06/29 0017 Complete COMPLETE METABOLIC PANEL 06/29 0017 Complete CBC WITH AUTO DIFF 06/29 0017 Complete AMYLASE 06/29 0017 Complete XRAY/CT/US XRAY/CT/US CT abdomen, pelvis CT interpretation by discussed w/radiologist Time results known: 0204 CT Results abnormal (see report) Departure Departure Time of Disposition 0302 Disposition DC Home or Self Care(routine) Clinical Impression Primary Impression: Pancreatitis, acute Qualifiers: Pancreatitis type: unspecified pancreatitis type Acute pancreatitis complication: unspecified Qualified Code: K85.90 - Acute pancreatitis without necrosis or infection, unspecified Secondary Impressions: Diabetes mellitus Qualifiers: Diabetes mellitus type: type 2 Diabetes mellitus complication status: with unspecified complications 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
[2017-06-29 00:36] LABS: LYMPH # 2.4 K/mm3 (0.7-4.5); LYMPH % 19.5 % (10-50)
[2017-06-29 00:58] LABS: HEMOGLOBIN 14.8 g/dL (14.1-18.0)
[2017-06-29 03:24] VITALS: BP 159/105
--- NOTE | 2017-06-29 06:11 | RADIOLOGY REPORT PS360 ---
CT ABD PELVIS W/O CONTRAST CLINICAL INDICATION: Severe abdominal pain radiating into the back with history of renal cancer ABD PAIN. HX OF RENAL CANCER ORDERING PHYSICIAN: Yamileth Castro MD PATIENT AGE: 46 years COMPARISON: None TECHNIQUE: Axial images obtained with sagittal and coronal reformats. PROCEDURE: Oral Contrast: None IV Contrast: None . FINDINGS: There are 2 nodular opacities in the right lung base anteriorly within the right middle lobe measuring up to 13 mm previously measuring 9 mm consistent with metastatic disease. There is a small central lucency within this lesion consistent with some central cavitation. Coronary artery calcifications. There is diffuse hepatic steatosis with mild hepatomegaly. A small hyperdense nodule present along the medial aspect of the right hepatic lobe not significantly changed. The spleen is unremarkable. There has been prior cholecystectomy. There is very minimal blurring of the peripancreatic fat around the pancreatic head Prior right nephrectomy. Right adrenal gland is enlarged with a bilobular contour measuring up to 6 cm cephalad to caudad and 3.4 cm transverse not significantly changed. Stable 15 mm left adrenal nodule. Decreased attenuation is present in the posterior aspect of the left kidney may be due to a renal cyst. There are few scattered small lymph nodes in the mesentery's. Unremarkable appendix. Diverticulosis of the sigmoid colon without diverticulitis. No abnormal fluid collection, intestinal obstruction, or free air. There is an enlarging lytic lesion in the left iliac bone measuring 19 mm previously measured 11 mm consistent with metastatic focus. IMPRESSION: 1. Possible early acute pancreatitis of the pancreatic head. 2. Metastatic lesions within the right adrenal gland, right middle lobe, and left ilium. Right middle lobe lesions and the lesion within the left iliac wing are slightly larger. Adrenal gland lesion on the right is unchanged. 3. Stable nodule along the inferomedial right hepatic lobe and left adrenal gland. 4. Prior right nephrectomy
[2017-06-30] MEDS ORDERED: METOPROLOL SUCC50 M1 PO (10:40)
[2017-06-30] MEDS ORDERED: WELLBUTRIN SR150 M1 PO (10:50)
== END 2017-06-29 03:26 | disposition home or self-care (01) ==
LOC: ER 00:12
PROVIDERS: Emergency Medicine
DX: K85.90 Acute pancreatitis without necrosis or infection, unspecified (principal); E11.8 Type 2 diabetes mellitus with unspecified complications; C64.1 Malignant neoplasm of right kidney, except renal pelvis; I10 Essential (primary) hypertension; E78.5 Hyperlipidemia, unspecified; M10.9 Gout, unspecified; I51.7 Cardiomegaly; Z79.84 Long term (current) use of oral hypoglycemic drugs; Z79.899 Other long term (current) drug therapy; Z87.891 Personal history of nicotine dependence
CPT/HCPCS: J2405

== ENCOUNTER 2017-06-29 15:09 | Inpatient (IN) | payer MEDICARE, MEDICAID ==
[~2017-06-29] VITALS: Ht 182.9 cm; Wt 115.4 kg
[~2017-06-29 15:09] MED LIST changes: +CHANTIX1 TAB PO
[2017-06-29 15:15] VITALS: BP 182/100
[2017-06-29 15:40] LABS: HEMOGLOBIN 15.6 g/dL (14.1-18.0); LYMPH # 1.9 K/mm3 (0.7-4.5); LYMPH % 10.4 % (10-50)
--- OUTSIDE RECORDS SUMMARY | 2017-06-29 15:49 | External Medical Summary Rpt | CCD ---
Author Author , VITO Organization [facility]O Address Unknown Phone Care Team Providers Care Master [place] Name Role Phone ALFARIS MOH, ALFARIS Unavailable Unavailable [facility] WILL BRO, WILL Unavailable Unavailable BRO BEINEKE, BEINEKE Unavailable Unavailable ROGER, ROGER Unavailable Unavailable RGOER ALL, ROGER ALL Unavailable Unavailable DANNI AYAH, DANNI Unavailable Unavailable AYAH DANNI AYAH, DANNI Unavailable Unavailable AYAH DANA SHELIA, Unavailable Unavailable DANA SHELIA DANA SHELIA, Unavailable Unavailable DANA SHELIA SMITH, SMITH Unavailable Unavailable [facility], Unavailable Unavailable [facility] Elias Sanchez MD, Unavailable Unavailable Elias Sharma MD, Unavailable Unavailable Feliciano Sharma MD FARHAD, FARHAD Unavailable Unavailable FARHAD JASMYNE, FARHAD Unavailable Unavailable JASMYNE [facility] Unavailable Unavailable INC, [facility] Unavailable Unavailable [facility]PITAL P, [facility], Unavailable Unavailable [facility] WHIPPLE, WHIPPLE Unavailable Unavailable JABARI NAN, JABARI Unavailable Unavailable NAN FRANCIS IMT, FRANCIS Unavailable Unavailable [facility] Ninoska Bronson MD, Unavailable Unavailable Ninoska Bronson MD HARSHAD RANDALL, HARSHAD RANDALL Unavailable Unavailable HARSHAD RANDALL, HARSHAD RANDALL Unavailable Unavailable [facility] Unavailable Unavailable [facility], [facility] [place] He, Unavailable Unavailable [facility]available [facility], [facility], Unavailable Unavailable [facility], Unavailable Unavailable [facility] SRINIVAS TOD, SRINIVAS TOD Unavailable Unavailable ZENAIDA RANDALL, ZENAIDA RANDALL Unavailable Unavailable ZENAIDA RANDALL, ZENAIDA RANDALL Unavailable Unavailable [facility] Unavailable Unavailable [facility], [facility] Unavailable Unavailable [facility], [facility] Unavailable Unavailable EM[facility], [facility] THEODORE, Unavailable Unavailable THEODORE Javier Fields MD, Unavailable Unavailable Javier Fields MD [facility] # Unavailable Unavailable [id number], [facility] # [id number] Cornel Ramirez Unavailable Unavailable CARMINA PIEDRA, Cornel HALL, MIYA HALL Unavailable Unavailable Purpose Continuity of Care Document - 12-24-2012 through 2016 Problems Code Diagnosis DOS Provider Status C649 MALIGNANT 05-06-2017 [facility] NEOPLASM PHYSICIANS UNS KIDNEY GROUP EXCEPT RENL PELVIS E785 HYPERLIPIDE 05-06-2017 [facility] KEYON PHYSICIANS UNSPECIFIED GROUP R079 CHEST PAIN 05-06-2017 [facility] UNSPECIFIED PHYSICIANS GROUP Z8679 PERSONAL 05-06-2017 [facility] HISTORY OT PHYSICIANS DISEASES GROUP CIRCULATORY SYSTEM C641 MALIGNANT 04-25-2017 [facility] NEOPLASM RT PHYSICIANS, KIDNEY PLLC EXCEPT RENAL PELVIS C7901 SECONDARY 04-25-2017 [facility] MALIG PHYSICIANS, NEOPLASM RT PLLC KIDNEY & RENAL PELV R1032 LEFT LOWER 04-25-2017 [facility]ANT PHYSICIANS, PAIN PLLC R1084 GENERALIZED 04-25-2017 [facility] R160 HEPATOMEGAL 04-25-2017 [facility]ICAL ELSEWHERE IMAGING ASS CLASSIFIED [id number] PAIN IN 03-19-2017 [facility] LEFT FOOT [facility] R011 CARDIAC 03-19-2017 [facility] UNSPECIFIED INC C7800 SECONDARY 02-06-2017 [facility] NEOPLASM OF INC UNSPECIFIED LUNG K5730 DIVERTICULO 02-06-2017 [facility] SIS LG MEDICAL INTEST W/O IMAGING ASS PERF/ABSC W/O BLEED R590 LOCALIZED 02-06-2017 [place] ENLARGED [facility]ICAL LYMPH NODES IMAGING ASS R911 SOLITARY 02-06-2017 [facility] PULMONARY [facility] NODULE [facility] Z0389 ENCOUNTER 02-06-2017 [facility] SUSPCT DZ & INC COND RULED OUT E119 TYPE 2 02-03-2017 [facility] DIABETES PHYSICIANS MELLITUS GROUP WITHOUT COMPLICATIO NS I10 ESSENTIAL 02-03-2017 [facility] PRIMARY PHYSICIANS HYPERTENSIO GROUP N [id number] OTHER LONG 02-03-2017 [facility] TERM PHYSICIANS CURRENT GROUP DRUG THERAPY G4733 OBSTRUCTIVE 01-19-2017 [facility] E[facility] J40 BRONCHITIS 10-06-2016 [facility] NOT PHYSICIANS SPECIFIED GROUP ACUTE OR CHRONIC C7989 SECONDARY 09-22-2016 [facility] NEOPLASM INC OT SPECIFIED SITES E118 TYPE 2 09-22-2016 [facility] DIABETES PHYSICIANS MELLITUS GROUP W/UNS COMPLICATIO NS E871 HYPO-OSMOLA 09-22-2016 [facility] LITY AND PHYSICIANS HYPONATREMI GROUP A K8590 ACUTE 09-22-2016 [facility] PANCREATITI PHYSICIANS S WO GROUP NECROSIS/IN FECTION UNSPEC Z720 TOBACCO USE 09-22-2016 [facility] PHYSICIANS GROUP K8580 OTHER ACUTE 09-21-2016 [facility], PANCREATITI PLLC S WO NECROSIS/IN FECTION R109 UNSPECIFIED 09-21-2016 [facility]IN [facility] R110 NAUSEA 09-21-2016 [facility] G92130 PERSONAL 09-21-2016 [place] [facility] OTHER IMAGING ASS MALIGNANT NEOPLASM KIDNEY K5731 DIVERTICULO 09-03-2016 [facility] SIS LG PHYSICIANS, INTEST W/O PLLC PERF/ABSC W/BLEED R1031 RIGHT LOWER 09-03-2016 [facility] PAIN [facility] G4713 RECURRENT 08-27-2016 [facility] HYPERSOMNIA PHYSICIANS GROUP J984 OTHER 08-27-2016 [facility] DISORDERS PHYSICIANS OF LUNG GROUP H527 UNSPECIFIED 07-28-2016 [facility] DISORDER OF REFRACTION Z23 ENCOUNTER 06-16-2016 [facility] FOR PHYSICIANS IMMUNIZATIO GROUP N M546 PAIN IN 05-13-2016 [facility] TH[facility]ACIC [facility] SPINE [facility] Z905 ACQUIRED 05-13-2016 [place] ABSENCE OF MEDICAL KIDNEY IMAGING ASS G4730 SLEEP APNEA 04-30-2016 [facility] PHYSICIANS UNSPECIFIED GROUP M7711 LATERAL 04-30-2016 [facility] EPICONDYLIT PHYSICIANS IS RIGHT GROUP ELBOW E875 HYPERKALEMI 04-24-2016 [facility] A PHYSICIANS GROUP 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 [place] ADRENAL [facility] GLAND IMAGING ASS UNSPECIFIED 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 [place] 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 C7970 SECONDARY 02-18-2016 [facility] MALIGNA[facility] NEOPLASM [facility] P UNS ADRENAL GLAND J302 OTHER 02-18-2016 [facility] SEASONAL PHYSICIANS ALLERGIC GROUP RHINITIS R918 OTHER 02-14-2016 [place] NONSPECIFIC MEDICAL ABNORMAL IMAGING ASS FINDING OF LUNG FIELD R739 HYPERGLYCEM 10-19-2015 [facility] IA PHYSICIANS UNSPECIFIED GROUP Z5111 ENCOUNTER 10-10-2015 [facility] P TIC CHEMOTHERAP Y Z5181 ENCOUNTER 07-16-2015 [facility] THERAPEUTIC INC DRUG LEVEL MONITORING N281 CYST OF 06-29-2015 [place] KIDNEY [facility]ICAL ACQUIRED IMAGING ASS J28396 OUTDOOR ADVENTURE GUIDES 06-14-2015 [facility] CURRENT USE PHYSICIANS OF OPIATE GROUP ANALGESIC 1890 MALIGNANT 06-04-2015 [facility] OF [facility] KIDNEY INC EXCEPT PELVIS V5811 ENCOUNTER 06-04-2015 [facility] ANTINEOPLAS INC TIC CHEMOTHERAP Y V5869 LONG-TERM 05-15-2015 [facility] (CURRENT) PHYSICIANS USE OF GROUP OTHER MEDICATIONS 54648 OVERWEIGHT 04-23-2015 [facility] PHYSICIANS GROUP 4019 UNSPECIFIED 04-23-2015 [facility] ESSENTIAL PHYSICIANS HYPERTENSIO GROUP N 68205 DIVERTICULI 04-23-2015 [facility] TIS OF PHYSICIANS COLON GROUP 96524 DIVERTICULI 04-11-2015 [facility] TIS OF PHYSICIANS COLON WITH GROUP HEMORRHAGE 30387 ABDOMINAL 04-11-2015 [facility] PAIN, LEFT PHYSICIANS LOWER GROUP QUADRANT 22394 ABDOMINAL 04-11-2015 [facility] PAIN, PHYSICIANS PERIUMBILIC GROUP 01221 ABDOMINAL 04-11-2015 [facility] PAIN OTHER PHYSICIANS SPECIFIED GROUP SITE V1052 PERSONAL 04-11-2015 [facility] HISTORY OF PHYSICIANS MALIGNANT GROUP NEOPLASM OF KIDNEY 2559 UNSPECIFIED 04-06-2015 [place] DISORDER MEDICAL OF ADRENAL IMAGING ASS GLANDS 5180 PULMONARY 04-06-2015 [facility] COLLAPSE [facility] 12712 UNSPEC 04-06-2015 [place] VENTRAL [facility]ICAL LUIS W/O IMAGING ASS MENTION OBST/GANGRE N 7856 ENLARGEMENT 04-06-2015 [place] OF LYMPH MEDICAL NODES IMAGING ASS 21368 ABDOMINAL 04-06-2015 [facility] UNSPECIFIED INC SITE 77065 OTHER 04-06-2015 [place] NONSPECIFIC MEDICAL ABNORMAL IMAGING ASS FINDING OF LUNG FIELD 2724 OTHER AND 03-23-2015 [facility] UNSPECIFIED PHYSICIANS GROUP HYPERLIPIDE KEYON V4573 ACQUIRED 02-28-2015 [place] [facility]ICAL KIDNEY IMAGING ASS 2357 NEOPLASM 02-07-2015 [facility] BRONCHUS&STEFANI NG 7231 CERVICALGIA 01-25-2015 [facility] 7245 UNSPECIFIED 01-25-2015 [place] BACKACHE MEDICAL [facility] ASS 30805 DIVERTICULO 01-24-2015 [facility] COLON URGENT TREAT 5770 ACUTE 01-24-2015 [facility] PANCREATITI [facility] S URGENT TREAT 7242 LUMBAGO 01-24-2015 [facility] URGENT TREAT 30758 LEUKOCYTOSI 01-10-2015 [facility] S PHYSICIANS UNSPECIFIED GROUP 4011 ESSENTIAL 01-10-2015 [facility] HYPERTENSIO PHYSICIANS N, BENIGN GROUP 27577 COR 01-10-2015 [facility] ATHEROSLERO PHYSICIANS UNSPEC GROUP TYPE VESSEL POINT HOPE IRA/NONA T 7880 RENAL COLIC 01-09-2015 [facility] 7881 DYSURIA 01-09-2015 [facility] 26317 SOLITARY 01-09-2015 [facility] NODULE INC 4739 UNSPECIFIED 07-18-2014 [facility] EMERGENCY PHYS 05859 PAIN IN 07-18-2014 [facility] JOINT, N EMERGENCY ANKLE AND PHYS FOOT 37601 TENOSYNOVIT 07-18-2014 [facility] IS OF FOOT N EMERGENCY AND ANKLE PHYS 5990 URINARY 06-16-2014 [facility] TRACT N EMERGENCY INFECTION PHYS SITE NOT SPECIFIED 7804 DIZZINESS 06-16-2014 [facility] AND N EMERGENCY GIDDINESS PHYS 27654 GENERALIZED 05-06-2014 [facility] ANXIETY DISORDER 7248 OTHER 03-23-2014 [facility] SYMPTOMS REFERABLE TO BACK 2374 NEOPLASM 02-21-2014 [facility] BHV OTH&UNSPEC ENDOCRN GLANDS 7840 HEADACHE 02-21-2014 [facility] 92945 DIARRHEA 02-21-2014 [facility] 2359 NEOPLASM 02-16-2014 [facility] BEHAVIOR INC OTH&UNSPEC RESP ORGN 5932 ACQUIRED 02-06-2014 [facility] CYST OF SHELIA KIDNEY 5939 UNSPECIFIED 02-06-2014 [facility] DISORDER SHELIA OF KIDNEY AND URETER 462 ACUTE 02-01-2014 [facility] PHARYNGITIS 272.1 272.1 PURE 10-08-2013 [place] HYPERGLYCER [facility] 305.1 305.1 10-08-2013 [place] TOBACCO USE [facility] 577.0 577.0 ACUTE 10-08-2013 [facility] S V10.53 V10.53 PER 10-08-2013 [facility] MALIGN [facility] RENAL PELVIS V16.9 V16.9 10-08-[address] [place] [address] [facility] CY NOS V17.3 V17.3 FAM [facility]-08[facility] HE[facility] DIS [facility] V18.0 V18.0 FAM 10-08-2013 [facility]-DIABETES [facility] MELLITUS [facility] 274.01 274.01 05-10-2013 [place] ACUTE GOUTY [facility] ARTHROPATHY 577.1 577.1 05-10-2013 [place] CHRONIC [facility] PANCREATITI [facility] S 455.0 455.0 INT 02-10-2013 [place] HEMORRHOID [facility] W/O COMPL Hospital 562.10 562.10 02-10-2013 [place] DIVERTICULO [facility] SIS COLON [facility] (W/O MENT OF HEMORRHAGE) 569.3 569.3 02-10-2013 [place] RECTAL & [facility] ANAL [facility] HEMORRHAGE 789.00 789.00 02-10-2013 [place] ABDOMINAL [facility], [facility] UNSPECIFIED SITE 272.4 272.4 01-15-2013 [place] HYPERLIPIDE [facility] KEYON NEC/NOS Hospital 560.1 560.1 01-15-2013 [place] PARALYTIC [facility] ILEUS Hospital V45.73 V45.73 01-15-2013 [place] ACQRD [facility] ABSENCE OF [facility] KIDNEY 789.06 789.06 12-24-2012 [place] ABDOMINAL [facility] PAIN, [facility] EPIGASTRIC Allergies, Adverse Reactions, Alerts Type Drug Allergy Adverse Reaction to Substance Substance Reaction Severity Penicillin [id number]/THROAT Severe Clinical Alert Notifications Alert Diabetes: no A1C in the last 6 months Diabetes: no influenza vaccine in the last 365 days Diabetes: no lipid panel in the last [...] ia de te s n re d AT 00 05 03 13 30 00 [place] Ac EN 78 -2 -3 .0 00 L- ti OL 11 8- 0- 00 07 MA ve OL 07 20 20 48 RT 80 17 17 95 25 1 44 PH AR MG MA CY TA BL #5 ET 91 CY 68 05 03 13 30 00 [place] Ac CL 64 -2 -3 .0 00 L- ti OB 50 8- 0- 00 07 MA ve EN 51 20 20 48 RT ZA 89 17 17 95 VA 0 45 PH IN AR E MA 10 CY MG #5 91 TA BL ET AL 16 01 17 30 30 00 NE Ac LO 71 -2 -3 .0 00 L- ti PU 40 8- 0- 00 07 MA ve RI 04 20 20 48 RT NO 10 17 17 95 L 7 43 PH 10 AR 0 MA MG CY TA #5 BL 91 ET ES 68 05 30 30 00 NE Ac CI 64 -2 -3 .0 00 L- ti TA 50 5- 0- 00 07 MA ve LO 52 20 20 48 RT VA 05 17 17 95 AM 4 46 PH AR 20 MA CY MG #5 TA 91 BL ET FL 60 05 16 30 00 NE Ac UT 43 -2 -3 .0 00 L- ti IC 20 8- 0- 00 07 MA ve 26 20 20 48 RT ON 41 17 17 95 E 5 47 PH VA AR OP MA CY 50 #5 MC 91 G SP RA Y ME 68 05 60 30 00 NE Ac TF 64 -2 -3 .0 00 L- ti OR 50 8- 0- 00 07 MA ve ME 54 20 20 48 RT N 55 17 17 95 HC 9 49 PH L AR 1, MA 00 CY 0 MG #5 91 TA BL ET LO 68 05 30 30 00 NE Ac SA 64 -2 -2 .0 00 L- ti RT 50 3- 3- 00 07 MA ve AN 40 20 20 48 RT 75 17 17 95 PO 4 48 PH TA AR SS MA IU CY M 25 #5 91 MG TA B OM 60 05 30 30 00 NE Ac EP 50 -2 -2 .0 00 L- ti RA 53 3- 3- 00 07 MA ve ZO 95 20 20 48 RT LE 20 17 [address] AR MA 20 CY MG #5 91 CA PS UL E GA 53 05 90 30 00 NE Ac BA 74 -2 -2 .0 00 L- ti PE 60 3- 3- 00 07 MA ve NT 10 20 20 48 RT IN 10 17 17 95 5 52 PH 10 AR 0 MA MG CY CA #5 PS 91 UL E OX 00 05 06 90 30 00 NE Ac YC 40 -2 -2 .0 00 L- ti OD 60 3- 3- 00 02 MA ve ON 52 20 20 24 RT E- 30 17 17 04 AC 1 42 PH ET AR AM MA IN CY OP HE #5 N 91 10 -3 25 VA 54 05 06 30 30 00 WA Ac AV 45 -1 -1 .0 00 L- ti 80 5- 6- 00 07 MA ve TA 92 20 20 45 RT TI 51 17 17 53 N 0 95 PH SO AR DI MA UM CY 40 #5 91 MG TA B ES 68 04 30 30 00 WA Ac CI 64 -2 -0 .0 00 L- ti TA 50 8- 2- 00 07 MA ve LO 52 20 20 41 RT VA 05 17 17 81 AM 4 82 PH AR 20 MA CY MG #5 TA 91 BL ET LI 54 04 30 30 00 WA Ac SI 45 -2 -0 .0 00 L- ti NO 80 8- 2- 00 07 MA ve VA 99 20 20 47 RT IL 91 17 17 87 0 87 PH 2. AR 5 MA MG CY TA #5 BL 91 ET AT 00 05 06 30 30 00 WA Ac EN 78 -0 -0 .0 00 L- ti OL 11 1- 2- 00 07 MA ve OL 07 20 20 48 RT 80 17 17 54 25 1 53 PH AR MG MA CY TA BL #5 ET 91 AL 16 05 30 30 00 WA Ac LO 71 -0 [...] 48 RT ZA 89 17 17 54 VA 0 57 PH IN AR E MA 10 CY MG #5 91 TA BL ET FL 60 05 06 16 30 00 WA Ac UT 43 -0 -0 .0 00 L- ti IC 20 1- 2- 00 07 MA ve 26 20 20 48 RT ON 41 17 17 54 E 5 88 PH VA AR OP MA CY 50 #5 MC 91 G SP RA Y OX 00 04 05 90 30 00 WA Ac YC 40 -2 -2 .0 00 L- ti OD 60 4- 6- 00 02 MA ve ON 52 20 20 24 RT E- 30 17 17 00 AC 1 36 PH ET AR AM MA IN CY OP HE #5 N 91 10 -3 25 LO 68 04 05 30 30 00 NE Ac SA 64 -2 -2 .0 00 L- ti RT 50 4- 6- 00 07 MA ve AN 40 20 20 48 RT 75 17 17 41 PO 4 31 PH TA AR SS MA IU CY M 25 #5 91 MG TA B VA 54 04 05 30 30 00 NE Ac AV 45 -1 -1 .0 00 L- ti 80 0- 2- 00 07 MA ve TA 92 20 20 45 RT TI 51 17 17 53 N 0 95 PH SO AR DI MA UM CY 40 #5 91 MG TA B FL 60 03 04 16 30 00 NE Ac UT 43 -2 -2 .0 00 L- ti IC 20 7- 8- 00 07 MA ve 26 20 20 45 RT ON 41 17 17 53 E 5 94 PH VA AR OP MA CY 50 #5 MC 91 G SP RA Y LI 68 03 04 30 30 00 NE Ac SI 18 -2 -2 .0 00 L- ti NO 00 7- 8- 00 07 MA ve VA 51 20 20 47 RT IL 20 17 17 87 1 87 PH 2. AR 5 MA MG CY TA #5 BL 91 ET ME 68 03 04 60 30 00 NE Ac TF 64 -2 -2 .0 00 L- ti OR 50 7- 8- 00 07 MA ve ME 54 20 20 47 RT N 55 17 17 87 HC 9 55 PH L AR 1, MA 00 CY 0 MG #5 91 TA BL ET OM 60 03 04 30 30 00 NE Ac EP 50 -2 -2 .0 00 L- ti RA 53 7- 8- 00 07 MA ve ZO 95 20 20 47 RT LE 20 17 [address] AR MA 20 CY MG #5 91 CA PS UL E AL 16 03 04 30 30 00 NE Ac LO 71 -2 -2 .0 00 L- ti PU 40 7- 8- 00 07 MA ve RI 04 20 20 47 RT NO 10 17 17 87 L 7 57 PH 10 AR 0 MA MG CY TA #5 BL 91 ET OX 00 03 04 90 30 00 NE Ac YC 40 -2 -2 .0 00 L- ti OD 60 8- 8- 00 02 MA ve ON 52 20 20 23 RT E- 30 17 17 96 AC 1 86 PH ET AR AM MA IN CY OP HE #5 N 91 10 -3 25 ES 68 03 04 30 30 00 WA Ac CI 64 -2 -2 .0 00 L- ti TA 50 7- 8- 00 07 MA ve LO 52 20 20 47 RT VA 05 17 17 87 AM 4 72 [...] 47 RT ZA 89 17 17 90 VA 0 45 PH IN AR E MA 10 CY MG #5 91 TA BL ET VA 54 03 04 30 30 00 WA Ac AV 45 -1 -1 .0 00 L- ti 80 4- 4- 00 07 MA ve TA 92 20 20 46 RT TI 51 17 17 08 N 0 72 PH SO AR DI MA UM CY 40 #5 91 MG TA B OX 00 02 03 90 30 00 [...] ST 91 RI PS ES 68 02 03 30 30 00 WA Ac CI 64 -2 -3 .0 00 L- ti TA 50 4- 1- 00 07 MA ve LO 52 20 20 46 RT VA 05 17 17 08 AM 4 69 [...] MA CY TA BL #5 ET 91 ON 03 10 31 00 WA Ac ET [...] 47 RT ZA 89 17 17 32 VA 0 32 PH IN AR E MA 10 CY MG #5 91 TA BL ET VA 00 02 03 30 30 00 WA [...] 17 17 53 E 5 94 PH VA AR OP MA CY 50 #5 MC 91 G SP RA Y AZ 59 01 02 6. 5 00 WA Ac IT 76 -2 -2 00 00 L- ti HR 23 3- 4- 0 07 MA ve OM 06 20 20 46 RT YC 00 17 17 63 IN 1 11 PH AR 25 MA 0 CY MG #5 TA 91 BL ET OX 00 01 02 90 30 00 WA Ac YC 40 -2 -2 .0 00 L- ti OD 60 4- 4- 00 02 MA ve ON 52 20 20 23 RT E- 30 17 17 88 AC 1 05 PH ET AR AM MA IN CY OP HE #5 N 91 10 -3 25 CY 68 01 02 30 30 00 WA Ac CL 64 -2 -2 .0 00 L- ti OB 50 3- 4- 00 07 MA ve EN 51 20 20 46 RT ZA 89 17 17 08 VA 0 68 PH IN AR E MA [...] #5 BL 91 ET AT 00 01 02 30 30 00 WA Ac EN [...] ve LO 52 20 20 46 RT VA 05 17 17 08 AM 4 69 [...] #5 91 TA BL ET OM 60 12 01 30 30 00 WA Ac EP 50 -2 -2 .0 00 L- ti RA 53 7- 7- 00 07 MA ve ZO 95 20 20 46 RT LE 20 16 17 [address] AR MA 20 CY MG #5 91 CA PS UL E OX 00 12 01 90 30 00 WA Ac YC 40 -2 -2 .0 00 L- ti OD 60 7- 7- 00 02 MA ve ON 52 20 20 23 RT E- 30 16 17 84 AC 1 54 PH ET AR AM MA IN CY OP HE #5 N 91 10 -3 25 VA 54 12 30 30 00 WA Ac AV 45 -2 -2 .0 00 L- ti 80 7- 7- 00 07 MA ve TA 92 20 20 46 RT TI 51 16 17 08 N 0 72 PH SO AR DI MA UM CY 40 #5 91 MG TA B ME 68 12 60 30 00 WA Ac TF 38 [...] 16 17 56 E 5 83 PH VA AR OP MA CY 50 #5 MC 91 G SP RA Y AL 16 12 10 13 30 00 WA Ac LO 71 -2 [...] 46 RT ZA 09 16 17 08 VA 0 68 PH IN AR E MA 10 CY MG #5 91 TA BL ET ES 68 12 30 30 00 WA Ac CI 64 -2 -2 .0 00 L- ti TA 50 7- 7- 00 07 MA ve LO 52 20 20 46 RT VA 05 16 17 08 AM 4 69 PH AR 20 MA CY MG #5 TA 91 BL ET OX 00 02 02 0 90 30 [...] N 10 10 05 -3 91 25 VA 54 01 02 2 30 30 WA 73 GA Ac AV 45 -0 -0 0. L- 94 IN ti 80 6- 5- 00 MA 01 EY ve TA 92 20 20 0 RT 6 TI 51 16 16 ME N 0 PH CH SO AR AE DI MA L UM CY S # 40 10 MG 05 91 TA B OM 60 01 02 2 30 30 [...] LO 44 20 20 0 RT 4 VA 77 16 16 ME AM 0 PH CH AR AE 20 MA L CY S MG # TA 10 BL 05 ET 91 AT 51 01 02 2 30 30 WA 73 GA Ac EN 07 -0 -0 0. L- 94 IN ti OL 90 6- 5- 00 MA 01 EY ve OL 75 20 20 0 RT 7 96 16 16 ME 25 3 PH CH AR AE MG MA L CY S TA # BL ET 10 05 91 GE 31 01 02 2 60 30 WA 73 GA Ac MF 72 -0 -0 0. L- 94 IN ti IB 20 6- 5- 00 MA 01 EY ve RO 22 20 20 0 RT 5 ZI 50 16 16 ME L 5 PH CH 60 AR AE 0 MA L MG CY S # TA BL 10 ET 05 91 AL 16 01 02 2 30 30 WA 73 GA Ac LO 71 -0 -0 0. L- 94 IN ti PU 40 6- 5- 00 MA 01 EY ve RI 04 20 20 0 RT 2 NO 10 16 16 ME L 7 PH CH 10 AR AE 0 MA L MG CY S # TA BL 10 ET 05 91 CY 68 02 02 0 [address] Ac CL 64 -0 -0 0. L- 99 ON ti OB 50 5- 5- 00 MA 84 E ve EN 45 20 20 0 RT 3 DI ZA 09 16 16 XI VA 0 PH E IN AR D E MA 10 CY # MG 10 TA 05 BL 91 ET ON 53 01 02 0 50 25 WA 88 GA Ac ET 88 -1 -0 0. L- 32 IN ti OU 50 5- 5- 00 MA 98 EY ve CH 24 20 20 0 RT 1 45 16 16 ME UL 0 PH CH TR AR AE A MA L TE CY S ST # ST 10 RI 05 PS 91 PA 51 01 1 No NT 07 -2 OP 90 4- Lo RA 05 20 ng ZO 12 14 er LE 0 Ac SO ti D ve DR 40 MG TA B VA 00 01 1 No OT 00 -2 ON 80 3- Lo IX 92 20 ng 35 14 er IV 5 Ac 40 ti ve MG AL SO 00 01 1 No DI 40 -2 UM 97 3- Lo 98 20 ng CH 43 14 er LO 7 RI Ac DE ti ve 0. 9% SO STEFANI TI ON KE 00 01 2 No TO 40 -2 RO 93 3- Lo LA 79 20 ng C 50 14 er 30 1 Ac MG ti /M ve L AL Ge 00 01 2 No mf 90 -2 ib 45 3- Lo ro 37 20 ng zi 96 14 er l 1 60 Ac 0M ti G ve Ta bl et VA 00 01 2 No ED 05 -2 [...] D ve DR 40 MG TA B VA 00 08 0 No ED 05 -2 NI 40 7- Lo SO 01 20 ng NE 82 13 er 0 20 Ac ti MG ve TA BL ET HY [address] 40 -2 OC 60 7- Lo OD 36 20 ng ON 56 13 er -A 2 CE Ac TA ti ME ve NO PH EN 5- 32 5 [...] ti ML ve Sy ri ng e DE 00 05 2 No XT 40 -0 RO 97 2- Lo SE 94 20 ng 10 13 er 5% 9 -0 Ac .9 ti % ve NA CL IV SO LN LO 00 05 1 No VE 07 -0 NO 50 2- Lo X 62 20 ng 40 04 13 er 1 MG Ac /0 ti .4 ve ML SY RI NG E SO 00 05 0 No DI 40 -0 UM 97 1- Lo 98 20 ng CH 30 13 er LO 9 RI Ac DE ti ve 0. 9% SO STEFANI TI ON Sa 63 05 1 No li 80 [...] ti 4H ve R Pa tc h VA 00 05 3 No OT 00 -0 [...] G ve Ta bl et Sa 63 04 0 No li 80 [...] ti 4 ve MG /2 ML AL VA 00 04 0 No OT 00 -1 [...] Order Detail nces retati t Range on CBC w auto diff (06-29-2017 00:25) Automat 06-29-2 = 84.3 82.2-97 complet ed 017 fl .8 ed erythro 00:25 cyte mean corpusc ular v Absolut 2 = 0.5 0.1-1.0 complet e 017 K/mm3 ed monocyt 00:25 e count [place] % 2 = 3.7 % 1.7-9.3 complet 017 ed 00:25 Automat 06-29-2 = 7.6 7.4-10. complet ed 017 fl 4 ed blood 00:25 platele t mean volume siva Blood 2 = 237 142-424 complet platele 017 K/mm3 ed t count 00:25 Red -16-2 = 5.12 4.6-6.2 complet blood 017 M/mm3 ed cell 00:25 count Automat 16-2 = 15.0 11.5-17 complet ed 017 % .5 ed erythro 00:25 cyte distrib ution width Blood 16-2 = 12.2 4.8-10. complet leukocy 017 K/MM3 8 ed glenna 00:25 count (number /volume ) Baso % 16-2 = 0.5 % 0.1-2.0 complet 017 ed 00:25 Automat 16-2 = 0.2 0.0-0.4 complet ed 017 K/mm3 ed blood 00:25 eosinop hil count Automat = 1.6 % 0.1-12. complet ed 017 0 ed blood 00:25 eosinop hils/10 0 leukocy t Blood = 9.1 1.3-8.0 complet granulo 017 K/mm3 ed cytes 00:25 automat ed count (numb Granulo = 74.7 37.0-80 complet cyte 017 % .0 ed percent 00:25 age Blood = 43.1 42.0-52 complet hematoc 017 % .0 ed rit 00:25 (volume fractio n) Blood = 14.8 14.1-18 complet hemoglo 017 g/dL .0 ed bin 00:25 measure ment (mass/v olum Absolut = 2.4 0.7-4.5 complet e 017 K/mm3 ed lymphoc 00:25 yte count Lymphoc = 19.5 10-50 complet yte 017 % ed count, 00:25 blood, automat ed Mean = 28.6 27-31.2 complet corpusc 017 pg ed ular 00:25 hemoglo bin (MCH) determ Automat = 34.2 31.8-35 complet ed 017 g/dl .4 ed erythro 00:25 cyte mean corpusc ular h Automat = 0.1 0-0.2 complet ed 017 K/MM3 ed blood 00:25 basophi l count (count/ vo Comment: PLASMA GROSSLY LIPEMIC Amylase ser/plas (06-29-2017 00:25) Amylase = 56 25-115 complet 017 U/L ed ser/madhav 00:25 s Comprehensive metabolic panel (06-29-2017 00:25) Serum = 120 136-145 complet sodium 017 mmoL/L ed measure 00:25 ment Serum = 18 15-37 complet or 017 U/L ed plasma 00:25 asparta te aminotr ansfera ALT = 44 12-78 complet (SGPT) 017 U/L ed ser/madhav 00:25 s Protein = 7.6 6.4-8.2 complet total 017 gm/dL ed ser/madhav 00:25 s Serum = 1.2 1.1-1.8 complet or 017 ed plasma 00:25 albumin /globul in mass ra Serum = 4.2 3.4-5.0 complet or 017 gm/dL ed plasma 00:25 albumin measure ment (mas Serum = 172 46-116 complet or 017 U/L ed plasma 00:25 alkalin e phospha tase siva Serum = 0.3 0.2-1.0 complet or 017 mg/dL ed plasma 00:25 total bilirub in measure m Serum = 13 7-18 complet or 017 mg/dL ed plasma 00:25 urea nitroge n measure men Serum = 10.0 8.5-10. complet or 017 mg/dL 1 ed plasma 00:25 calcium measure ment (mas Serum = 84 98-107 complet or 017 mmoL/L ed plasma 00:25 chlorid e measure ment (mo Carbon = 27 21.0-32 complet dioxide 017 mmoL/L .0 ed 00:25 measure ment Serum = 1.4 0.70-1. complet or 017 mg/dL 30 ed plasma 00:25 creatin ine measure ment ( Estimat = 111 50-200 complet ion of 017 ML/MIN ed creatin 00:25 ine renal clearan ce Estimat = 55 >60 complet ed 017 ML/MIN ed glomeru 00:25 lar filtrat ion rate (GF Comment: REFERENCE RANGE: >60 ML/MIN/1.73 SQUARE METERS Comment: If this patient is [place], then multiply the Comment: result by 1.210. Serum = 3.4 1.3-3.2 complet globuli 017 gm/dL ed n 00:25 measure ment (mass/v olume) Serum = 435 74-106 complet or 017 mg/dL ed plasma 00:25 glucose measure ment (mas Comment: CRITICAL RESULTS Comment: RESULTS CALLED TO: Shelton ANDERSON 06/29/17 0117 Jeferson Rubin Comment: SERUM GROSSLY LIPEMIC Serum = 3.9 3.5-5.1 complet potassi 017 mmoL/L ed um 00:25 measure ment Lipase measurement (06-29-2017 00:25) Lipase = 526 73-393 complet measure 017 U/L ed ment 00:25 Comment: SERUM GROSSLY LIPEMIC Cardiac enzymes (06-29-2017 00:25) Serum 2 = 1.3 0-4.0 complet or 017 U/L ed plasma 00:25 creatin e kinase MB (CK-M Comment: SERUM GROSSLY LIPEMIC Serum < 0.5 0.0-3.6 complet or 017 ng/mL ed plasma 00:25 creatin e kinase MB measu Serum = 40 39-308 complet or 017 U/L ed plasma 00:25 creatin e kinase measure m Serum < 0.02 0.00-0. complet or 017 ng/mL 06 ed plasma 00:25 troponi n i.cardi ac measu Drugs identified in Urine by Screen method (06-01-2017 13:00) Ampheta NEGATIV <1000 complet mine 017 E ed [Presen 13:00 ce] in Urine by Screen method 11-Hydr POSITIV <50 Abnorma complet oxy 017 E l ed delta-9 13:00 tetrahy drocann abinol [Presen ce] in Unspeci fied specime n Drugs identified in Urine by Screen method (05-01-2017 15:30) Ampheta NEGATIV <1000 complet mine 017 E ed [Presen 15:30 ce] in Urine by Screen method 11-Hydr NEGATIV <50 complet oxy 017 E ed delta-9 15:30 tetrahy drocann abinol [Presen ce] in Unspeci fied specime n Urinalysis dipstick W Reflex Microscopic panel in Urine (04-25-2017 18:15) Bacteri TRACE O complet a 017 ed [Presen 18:15 ce] in Urine sedimen t by Light microsc opy Erythro OCC 0 complet cytes 017 ed [Presen 18:15 ce] in Urine sedimen t by Light microsc opy Urinalysis dipstick W Reflex Microscopic panel in Urine (04-25-2017 18:15) Appeara CLEAR CLEAR complet nce of 017 ed Urine 18:15 Bilirub NEGATIV NEG complet in 017 E ed [Presen 18:15 ce] in Urine by Test strip Erythro TRACE-I NEG complet cytes 017 NTACT ed [Presen 18:15 ce] in Urine Color YELLOW YELLOW complet of 017 ed Urine 18:15 Ketones NEGATIV NEG complet 017 E ed [Presen 18:15 ce] in Urine by Automat ed test strip Mucus NEGATIV NEG complet [Presen 017 E ed ce] in 18:15 Urine sedimen t by Light microsc opy Nitrite NEGATIV NEG complet 017 E ed [Presen 18:15 ce] in Urine by Test strip Urobili 0.2 NEG complet nogen 017 ed [Presen 18:15 ce] in Urine by Test strip Drugs identified in Urine by Screen method (04-03-2017 14:15) Ampheta 04-03- NEGATIV <1000 complet mine 017 E ed [Presen 14:15 ce] in Urine by Screen method 11-Hydr POSITIV <50 Abnorma complet oxy 017 E l ed delta-9 14:15 tetrahy drocann abinol [Presen ce] in Unspeci fied specime n Drugs identified in Urine by Screen method (03-04-2017 13:30) Ampheta 03-04-2 NEGATIV <1000 complet mine 017 E ed [Presen 13:30 ce] in Urine by Screen method 11-Hydr 03-04-2 POSITIV <50 Abnorma complet oxy 017 E l ed delta-9 13:30 tetrahy drocann abinol [Presen ce] in Unspeci fied specime n Drugs identified in Urine by Screen method (02-03-2017 13:00) Ampheta 02-03-2 NEGATIV <1000 complet mine 017 E ed [Presen 13:00 ce] in Urine by Screen method 11-Hydr 02-03-2 POSITIV <50 Abnorma complet oxy 017 E l ed delta-9 13:00 tetrahy drocann abinol [Presen ce] in Unspeci fied specime n COMPREHENSIVE METABOLIC PANEL (10-08-2013 06:20) Glucose 99 [...] SerPl-m 014 gm/dL ed Cnc 06:20 Albumin 3.2 3.4-5.0 complet 014 gm/dL ed SerPl-m 06:20 Cnc Globuli 2.7 1.3-3.2 complet n 014 gm/dL ed Ser-mCn 06:20 c Albumin 1.2 UNK 1.1-1.8 complet /Glob 014 ed SerPl-m 06:20 Rto Bilirub 0.3 0.2-1.0 complet 014 mg/dL [...] complet Auto 014 .5 ed 06:20 Platele 2 210 142-424 complet t Bld 014 K/mm3 ed Ql 06:20 Manual MEAN 7.7 fl 7.4-10. complet PLATELE 014 4 ed T 06:20 VOLUME Granulo 2 42.5 % 37.0-80 complet cytes 014 .0 ed Fr Bld 06:20 Auto LYMPH % 10-08-2 48.8 % 10-50 complet 014 ed 06:20 Monocyt 10-08-2 4.8 % 1.7-9.3 complet es Fr 014 ed Bld 06:20 Auto Eosinop 10-08-2 3.4 % 0.1-12. complet hil Fr 014 0 ed Bld 06:20 Auto Basophi 10-08-2 0.5 % 0.1-2.0 complet ls Fr 014 ed Bld 06:20 Auto Granulo 10-08-2 3.9 1.3-8.0 complet cytes # 014 K/mm3 ed Bld 06:20 Auto Lymphoc 4.5 0.7-4.5 complet ytes Fr 014 K/mm3 ed Bld 06:20 Auto Monocyt 0.4 0.1-1.0 complet es # 014 K/mm3 ed Bld 06:20 Auto Eosinop 0.3 0.0-0.4 complet hil # 014 K/mm3 ed Bld 06:20 Auto Basophi 0.1 0-0.2 complet ls # [...] SerPl-m 014 gm/dL ed Cnc 06:00 Albumin 2.9 3.4-5.0 complet 014 gm/dL ed SerPl-m [...] K/MM3 8 ed Auto 06:00 RBC # 4.63 4.6-6.2 complet Bld 014 M/mm3 ed [...] ed ULAR 06:00 HGB CONC RDW RBC 15.3 % 11.5-17 complet Auto 014 .5 ed 06:00 Platele 186 142-424 complet t Bld 014 K/mm3 ed Ql 06:00 Manual MEAN 7.6 fl 7.4-10. complet PLATELE 014 4 ed T 06:00 VOLUME Granulo 42.1 % 37.0-80 complet cytes 014 .0 ed Fr Bld 06:00 Auto LYMPH % 49.1 % 10-50 complet 014 ed 06:00 Monocyt 5.1 % 1.7-9.3 complet es Fr 014 ed Bld 06:00 Auto Eosinop 10-07-2 3.2 % 0.1-12. complet hil Fr 014 0 ed Bld 06:00 Auto Basophi 2 0.5 % 0.1-2.0 complet ls Fr 014 ed Bld 06:00 Auto Granulo 3.6 1.3-8.0 complet cytes # 014 K/mm3 ed Bld 06:00 Auto Lymphoc 2 4.2 0.7-4.5 complet ytes Fr 014 K/mm3 ed Bld 06:00 Auto Monocyt 2 0.4 0.1-1.0 complet es # 014 K/mm3 ed Bld 06:00 Auto Eosinop 0.3 0.0-0.4 complet hil # 014 K/mm3 ed Bld 06:00 Auto Basophi 0.0 0-0.2 complet ls # 014 K/MM3 [...] 014 mmoL/L .0 ed Cnc 06:10 Calcium 10-06- 8.5 8.5-10. complet 014 mg/dL 1 ed SerPl-m 06:10 Cnc Prot 10-06-2 6.8 6.4-8.2 complet SerPl-m 014 gm/dL ed [...] with AUTO DIFF (10-06-2013 06:10) WBC # 10-06-2 10.0 4.8-10. complet Bld 014 K/MM3 8 ed Auto 06:10 RBC # 10-06-2 5.19 4.6-6.2 complet Bld 014 M/mm3 ed Auto 06:10 Hgb 15.0 14.1-18 complet Bld-mCn 014 g/dL .0 ed c 06:10 Hct Fr 44.8 % 42.0-52 complet Bld 014 .0 ed 06:10 MCV RBC 86.3 fl 82.2-97 complet 014 .8 ed 06:10 MCH RBC 28.9 pg 27-31.2 complet Qn 014 ed Auto 06:10 MEAN 33.5 31.8-35 complet CORPUSC 014 g/dl .4 ed ULAR 06:10 HGB CONC RDW RBC 23-2 15.2 % 11.5-17 complet Auto 014 .5 ed 06:10 Platele 23-2 184 142-424 complet t Bld 014 K/mm3 ed Ql 06:10 Manual MEAN 23-2 7.2 fl 7.4-10. complet PLATELE 014 4 ed T 06:10 VOLUME Granulo 23-2 78.6 % 37.0-80 complet cytes 014 .0 ed Fr Bld 06:10 Auto LYMPH % -23-2 15.1 % 10-50 complet 014 ed 06:10 Monocyt 23-2 4.5 % 1.7-9.3 complet es Fr 014 ed Bld 06:10 Auto Eosinop 23-2 1.7 % 0.1-12. complet hil Fr 014 0 ed Bld 06:10 Auto Basophi 23-2 0.2 % 0.1-2.0 complet ls Fr 014 ed Bld 06:10 Auto Granulo 23-2 7.8 1.3-8.0 complet cytes # 014 K/mm3 ed Bld 06:10 Auto Lymphoc 23-2 1.5 0.7-4.5 complet ytes Fr 014 K/mm3 ed Bld 06:10 Auto Monocyt -23-2 0.4 0.1-1.0 complet es # 014 K/mm3 ed Bld 06:10 Auto Eosinop -23-2 0.2 0.0-0.4 complet hil # 014 K/mm3 ed Bld 06:10 Auto Basophi -23-2 0.0 0-0.2 complet ls # 014 K/MM3 ed Bld 06:10 Auto COMPREHENSIVE METABOLIC PANEL (10-05-2013 11:15) Glucose 10-05- 97 74-106 complet 014 mg/dL ed Bld-mCn 11:15 c BUN 10-05-2 14 7-18 complet Bld-mCn 014 mg/dL ed c 11:15 Creat 10-05-2 1.2 0.8-1.3 complet SerPl-m 014 mg/dL ed Cnc 11:15 Creat 10-05-2 124 50-200 complet Cl 014 ML/MIN ed [...] K/MM3 8 ed Auto 11:15 RBC # 22-2 5.48 4.6-6.2 complet Bld 014 M/mm3 ed Auto 11:15 Hgb 10-05-2 15.9 14.1-18 complet Bld-mCn 014 g/dL .0 ed c 11:15 Hct Fr 2 45.9 % 42.0-52 complet Bld 014 .0 ed 11:15 MCV RBC 83.8 fl 82.2-97 complet 014 .8 ed 11:15 MCH RBC 28.9 pg 27-31.2 complet Qn 014 ed Auto 11:15 MEAN 34.5 31.8-35 complet CORPUSC 014 g/dl .4 ed ULAR 11:15 HGB CONC RDW RBC 15.5 % 11.5-17 complet Auto 014 .5 ed 11:15 Platele 2 217 142-424 complet t Bld 014 K/mm3 ed Ql 11:15 Manual MEAN 2 7.4 fl 7.4-10. complet PLATELE 014 4 ed T 11:15 VOLUME Granulo 10-05-2 60.4 % 37.0-80 complet cytes 014 .0 ed Fr Bld 11:15 Auto LYMPH % 10-05-2 31.8 % 10-50 complet 014 ed 11:15 Monocyt 10-05-2 4.5 % 1.7-9.3 complet es Fr 014 ed Bld 11:15 Auto Eosinop 10-05-2 2.7 % 0.1-12. complet hil Fr 014 0 ed Bld 11:15 Auto Basophi 22-2 0.6 % 0.1-2.0 complet ls Fr 014 ed Bld 11:15 Auto Granulo 22-2 6.9 1.3-8.0 complet cytes # 014 K/mm3 ed Bld 11:15 Auto Lymphoc 22-2 3.7 0.7-4.5 complet ytes Fr 014 K/mm3 ed Bld 11:15 Auto Monocyt -22-2 0.5 0.1-1.0 complet es # 014 K/mm3 ed Bld 11:15 Auto Eosinop 22-2 0.3 0.0-0.4 complet hil # 014 K/mm3 [...] /Glob 013 ed SerPl-m 12:10 Rto Bilirub 0.3 0.2-1.0 complet 013 mg/dL ed SerPl-m 12:10 Cnc AST 15 U/L 15-37 complet SerPl-c 013 ed Cnc 12:10 ALT 37 U/L 30-65 complet SerPl-c 013 ed Cnc 12:10 ALP 120 U/L 50-136 complet SerPl-c 013 ed Cnc 12:10 Amylase SerPl-cCnc (02-10-2013 12:10) Amylase 54 U/L 25-115 complet 013 ed SerPl-c 12:10 Cnc LIPASE (02-10-2013 12:10) LIPASE 05-30-2 205 U/L 73-393 complet 013 ed 12:10 CBC with AUTO DIFF (02-10-2013 12:10) WBC # 05-30-2 7.4 4.8-10. complet Bld 013 K/MM3 8 ed Auto 12:10 RBC # 05-30-2 5.52 4.6-6.2 complet Bld 013 M/mm3 ed Auto 12:10 Hgb 05-30-2 16.2 14.1-18 complet Bld-mCn 013 g/dL .0 ed c 12:10 Hct Fr 05-30-2 48.0 % 42.0-52 complet Bld 013 .0 ed 12:10 MCV RBC 05-30-2 86.9 fl 82.2-97 complet 013 .8 ed 12:10 MCH RBC 05-30-2 29.4 pg 27-31.2 complet Qn 013 ed Auto 12:10 MEAN 05-30-2 33.8 31.8-35 complet CORPUSC 013 g/dl .4 ed ULAR 12:10 HGB CONC RDW RBC 05-30-2 15.3 % 11.5-17 complet Auto 013 .5 ed 12:10 Platele 05-30-2 221 142-424 complet t Bld 013 K/mm3 ed Ql 12:10 Manual MEAN 05-30-2 7.7 fl 7.4-10. complet PLATELE 013 4 ed T 12:10 VOLUME Granulo 05-30-2 50.7 % 37.0-80 complet cytes 013 .0 [...] 013 K/mm3 ed Bld 12:10 Auto Monocyt 30-2 0.4 0.1-1.0 complet es # 013 K/mm3 ed Bld 12:10 Auto Eosinop 30-2 0.3 0.0-0.4 complet hil # 013 K/mm3 ed Bld 12:10 Auto Basophi 02-10-2 0.0 0-0.2 complet ls # 013 K/MM3 ed Bld 12:10 Auto URINALYSIS/COMPLETE (02-10-2013 12:10) URINE 02-10-2 YELLOW YELLOW complet COLOR 013 ed 12:10 URINE 02-10- CLEAR CLEAR complet APPEARA 013 ed NCE 12:10 URINE 02-10- NEGATIV NEG complet GLUCOSE 013 E ed - 12:10 DIPSTIC K URINE 02-10- NEGATIV NEG complet BILIRUB 013 E ed IN - 12:10 DIPSTIC K URINE 02-10-2 NEGATIV NEG complet KETONE 013 E mg/dL ed 12:10 URINE 02-10-2 Less 1.005-1 complet SPECIFI 013 than or .030 ed C 12:10 equal GRAVITY to 1.005 URINE 02-10-2 TRACE-I NEG complet BLOOD 013 NTACT ed 12:10 URINE 02-10-2 6.0 UNK 5.0-8.5 complet PH 013 ed 12:10 URINE 02-10-2 NEGATIV NEG complet PROTEIN 013 E mg/dL ed - 12:10 DIPSTIC K URINE 02-10-2 0.2 NEG complet UROBILI 013 E.U./dL ed NOGEN - 12:10 DIPSTIC K URINE 02-10-2 NEGATIV NEG complet NITRATE 013 E ed - 12:10 DIPSTIC K URINE 02-10-2 NEGATIV NEG complet LEUK 013 E ed ESTERAS 12:10 E URINE 02-10-2 3-5 0 complet RBC 013 rbc/hpf ed 12:10 URINE 02-10-2 OCC O complet WBC 013 wbc/hpf ed 12:10 URINE 02-10-2 OCC OCC complet SQUAMOU 013 #/hpf ed S CELLS 12:10 LIPASE (01-15-2013 06:10) LIPASE 262 U/L 73-393 complet 013 ed 06:10 CBC with AUTO DIFF (01-15-2013 06:10) WBC # 05-04-2 9.2 4.8-10. complet Bld 013 K/MM3 8 ed Auto 06:10 RBC # 05-04-2 5.42 4.6-6.2 complet Bld 013 M/mm3 ed Auto 06:10 Hgb 05-04-2 15.9 14.1-18 complet Bld-mCn 013 g/dL .0 ed c 06:10 Hct Fr 05-04-2 48.1 % 42.0-52 complet Bld 013 .0 [...] 013 K/mm3 ed Bld 06:10 Auto Eosinop 01-15-2 0.4 0.0-0.4 complet hil # 013 K/mm3 ed Bld 06:10 Auto Basophi 01-15-2 0.1 0-0.2 complet ls # 013 K/MM3 ed Bld 06:10 Auto BASIC METABOLIC PANEL (01-14-2013 06:10) Glucose 01-14- 92 74-106 complet 013 mg/dL ed Bld-mCn 06:10 c BUN 03-2 10 7-18 complet Bld-mCn 013 mg/dL ed c 06:10 Creat 03-2 1.3 0.8-1.3 complet SerPl-m 013 mg/dL ed Cnc 06:10 ESTIMAT 01-14-2 112 50-200 complet ED 013 ML/MIN ed CREATIN 06:10 INE CLEARAN CE GFR 61 Greater complet (ESTIMA 013 ML/MIN than ed ERICA) 06:10 60 Sodium 01-14-2 139 136-145 complet SerPl-s 013 mmoL/L ed Cnc 06:10 Potassi 01-14-2 4.2 3.5-5.1 complet um 013 mmoL/L ed SerPl-s 06:10 Cnc Chlorid 01-14- 102 98-107 complet e 013 mmoL/L ed SerPl-s 06:10 Cnc CO2 01-14-2 31 21.0-32 complet SerPl-s 013 mmoL/L .0 ed Cnc 06:10 Calcium 03-2 9.1 8.5-10. complet 013 mg/dL 1 ed SerPl-m 06:10 Cnc LIPASE (01-14-2013 06:10) LIPASE 01-14-2 595 U/L 73-393 complet 013 ed 06:10 CBC with AUTO DIFF (01-14-2013 06:10) WBC # 05-03-2 13.3 4.8-10. complet Bld 013 K/MM3 8 ed Auto 06:10 RBC # 05-03-2 5.48 4.6-6.2 complet Bld 013 M/mm3 ed Auto 06:10 Hgb 03-2 16.5 14.1-18 complet Bld-mCn 013 g/dL .0 ed c 06:10 Hct Fr -03-2 49.4 % 42.0-52 complet Bld 013 .0 ed 06:10 MCV RBC 05-03-2 90.2 fl 82.2-97 complet 013 .8 ed 06:10 MCH RBC -03-2 30.1 pg 27-31.2 complet Qn 013 ed Auto 06:10 MEAN 05-03-2 33.4 31.8-35 complet CORPUSC 013 g/dl .4 ed ULAR 06:10 HGB CONC RDW RBC -03-2 15.5 % 11.5-17 complet Auto 013 .5 ed 06:10 Platele 05-03-2 219 142-424 complet t Bld 013 K/mm3 ed Ql 06:10 Manual MEAN 03-2 7.6 fl 7.4-10. complet PLATELE 013 4 ed T 06:10 VOLUME Granulo 05-03-2 71.3 % 37.0-80 complet cytes 013 .0 [...] 013 K/mm3 ed Bld 06:10 Auto Monocyt 05-03-2 0.6 0.1-1.0 complet es # 013 K/mm3 ed Bld 06:10 Auto Eosinop 05-03-2 0.3 0.0-0.4 complet hil # 013 K/mm3 ed Bld 06:10 Auto Basophi 05-03-2 0.0 0-0.2 complet ls # 013 K/MM3 ed Bld 06:10 Auto BASIC METABOLIC PANEL (01-13-2013 06:25) Glucose 05-02-2 87 74-106 complet 013 mg/dL ed Bld-mCn 06:25 c BUN -02-2 12 7-18 complet Bld-mCn 013 mg/dL ed c 06:25 Creat 05-02-2 1.2 0.8-1.3 complet SerPl-m 013 mg/dL ed Cnc 06:25 ESTIMAT -02-2 121 50-200 complet ED 013 ML/MIN ed CREATIN 06:25 INE CLEARAN CE GFR 02-2 67 Greater complet (ESTIMA 013 ML/MIN than ed ERICA) 06:25 60 Sodium -02-2 139 136-145 complet SerPl-s 013 mmoL/L ed Cnc 06:25 Potassi 01-13-2 3.9 3.5-5.1 complet um 013 mmoL/L ed SerPl-s 06:25 Cnc Chlorid 01-13-2 103 98-107 complet e 013 mmoL/L ed SerPl-s 06:25 Cnc CO2 02-2 28 21.0-32 complet SerPl-s 013 mmoL/L .0 ed Cnc 06:25 Calcium -02-2 8.8 8.5-10. complet 013 mg/dL 1 ed SerPl-m 06:25 Cnc LIPASE (01-13-2013 06:25) LIPASE 01-13- 3011 73-393 complet 013 U/L ed 06:25 CBC with AUTO DIFF (01-13-2013 06:25) WBC # 05-02-2 10.2 4.8-10. complet Bld 013 K/MM3 8 ed Auto 06:25 RBC # 05-02-2 5.72 4.6-6.2 complet Bld 013 M/mm3 ed Auto 06:25 Hgb -02-2 15.9 14.1-18 complet Bld-mCn 013 g/dL .0 ed c 06:25 Hct Fr 02-2 50.9 % 42.0-52 complet Bld 013 .0 ed 06:25 MCV RBC -02-2 89.0 fl 82.2-97 complet 013 .8 ed 06:25 MCH RBC -02-2 27.9 pg 27-31.2 complet Qn 013 ed [...] Bld 06:25 Auto URINALYSIS/COMPLETE (01-12-2013 10:16) URINE 01-2 YELLOW YELLOW complet COLOR 013 ed 10:16 URINE 01-12-2 CLEAR CLEAR complet APPEARA 013 ed NCE 10:16 URINE 01-12-2 NEGATIV NEG complet GLUCOSE 013 E ed - 10:16 DIPSTIC K URINE 01-12-2 NEGATIV NEG complet BILIRUB 013 E ed IN - 10:16 DIPSTIC K URINE 01-12-2 NEGATIV NEG complet KETONE 013 E mg/dL ed 10:16 URINE 05-01-2 Less 1.005-1 complet SPECIFI 013 than or .030 ed C 10:16 equal GRAVITY to 1.005 URINE TRACE-I NEG complet BLOOD 013 NTACT ed 10:16 URINE 6.0 UNK 5.0-8.5 complet PH 013 ed 10:16 URINE NEGATIV NEG complet PROTEIN 013 E mg/dL ed - 10:16 DIPSTIC K URINE 0.2 NEG complet UROBILI 013 E.U./dL ed NOGEN - 10:16 DIPSTIC K URINE NEGATIV NEG complet NITRATE 013 E ed - 10:16 DIPSTIC K URINE NEGATIV NEG complet LEUK 013 E ed [...] 013 mmoL/L .0 ed Cnc 08:45 Calcium 05-01-2 9.4 8.5-10. complet 013 mg/dL 1 ed SerPl-m 08:45 Cnc Prot 01-12-2 7.8 6.4-8.2 complet SerPl-m 013 gm/dL ed Cnc 08:45 Albumin 01-12-2 4.0 3.4-5.0 complet 013 gm/dL ed SerPl-m 08:45 Cnc Globuli 01-12-2 3.8 1.3-3.2 complet n 013 gm/dL ed Ser-mCn 08:45 c Albumin 2 1.1 UNK 1.1-1.8 complet /Glob 013 ed SerPl-m 08:45 Rto Bilirub 0.5 0.2-1.0 complet 013 mg/dL ed SerPl-m 08:45 Cnc AST 32 U/L 15-37 complet SerPl-c 013 ed Cnc 08:45 ALT 01-12- 45 U/L 30-65 complet SerPl-c 013 ed Cnc 08:45 ALP 128 U/L 50-136 complet SerPl-c 013 ed Cnc 08:45 Amylase SerPl-cCnc (01-12-2013 08:45) Amylase 214 U/L 25-115 complet 013 ed SerPl-c 08:45 Cnc LIPASE (01-12-2013 08:45) LIPASE 2092 73-393 complet 013 U/L ed 08:45 LIPID PROFILE (01-12-2013 08:45) Cholest 223 Less complet 013 mg/dL than ed SerPl-m 08:45 200 Cnc HDLc 25.0 40-60 complet SerPl-m 013 MG/DL ed Cnc 08:45 Trigl 01-12- 464 30-200 complet SerPl-m 013 mg/dL ed Cnc 08:45 CBC with AUTO DIFF (01-12-2013 08:45) WBC # 01-12-2 14.7 4.8-10. complet Bld 013 K/MM3 8 ed Auto 08:45 RBC # 01-12-2 5.55 4.6-6.2 complet Bld 013 M/mm3 ed Auto 08:45 Hgb 01-12-2 16.7 14.1-18 complet Bld-mCn 013 g/dL .0 ed c 08:45 Hct Fr 05-01-2 48.3 % 42.0-52 complet Bld 013 .0 ed 08:45 MCV RBC 05-01-2 87.0 fl 82.2-97 complet 013 .8 ed 08:45 MCH RBC -01-2 30.1 pg 27-31.2 complet Qn 013 ed Auto 08:45 MEAN 05-01-2 34.6 31.8-35 complet CORPUSC 013 g/dl .4 ed ULAR 08:45 HGB CONC RDW RBC -01-2 15.4 % 11.5-17 complet Auto 013 .5 ed 08:45 Platele 05-01-2 233 142-424 complet t Bld 013 K/mm3 ed Ql 08:45 Manual MEAN 01-12-2 7.5 fl 7.4-10. complet PLATELE 013 4 ed T 08:45 VOLUME Granulo 05-01-2 61.7 % 37.0-80 complet cytes 013 .0 ed Fr Bld 08:45 Auto LYMPH % 05-01-2 30.4 % 10-50 complet 013 ed 08:45 Monocyt 05-01-2 4.2 % 1.7-9.3 complet es Fr 013 ed Bld 08:45 Auto Eosinop 05-01-2 3.3 % 0.1-12. complet hil Fr 013 0 ed Bld 08:45 Auto Basophi 05-01-2 0.4 % 0.1-2.0 complet ls Fr 013 ed Bld 08:45 Auto Granulo 05-01-2 9.1 1.3-8.0 complet cytes # 013 K/mm3 ed Bld 08:45 Auto Lymphoc 05-01-2 4.5 0.7-4.5 complet ytes Fr 013 K/mm3 ed Bld 08:45 Auto Monocyt 05-01-2 0.6 0.1-1.0 complet es # 013 K/mm3 ed Bld 08:45 Auto Eosinop 05-01-2 0.5 0.0-0.4 complet hil # 013 K/mm3 ed Bld 08:45 Auto Basophi 05-01-2 0.1 0-0.2 complet ls # 013 K/MM3 ed Bld 08:45 Auto COMPREHENSIVE METABOLIC PANEL (12-24-2012 07:55) Glucose 105 74-106 complet 013 mg/dL ed Bld-mCn 07:55 c BUN 18 7-18 complet Bld-mCn 013 mg/dL ed c 07:55 Creat 1.4 0.8-1.3 complet SerPl-m 013 mg/dL ed Cnc 07:55 ESTIMAT 120 50-200 complet ED 013 ML/MIN ed CREATIN 07:55 INE CLEARAN CE GFR 56 Greater complet (ESTIMA 013 ML/MIN than ed ERICA) 07:55 60 Sodium 139 136-145 complet SerPl-s 013 mmoL/L ed Cnc 07:55 Potassi 4.0 3.5-5.1 complet um 013 mmoL/L ed SerPl-s 07:55 Cnc Chlorid 102 98-107 complet e 013 mmoL/L ed SerPl-s 07:55 Cnc CO2 30 21.0-32 complet SerPl-s 013 mmoL/L .0 ed Cnc 07:55 Calcium 9.2 8.5-10. complet 013 mg/dL 1 ed SerPl-m 07:55 Cnc Prot 7.8 6.4-8.2 complet SerPl-m 013 gm/dL ed Cnc 07:55 Albumin 3.9 3.4-5.0 complet 013 gm/dL ed SerPl-m 07:55 Cnc Globuli 3.9 1.3-3.2 complet n 013 gm/dL ed Ser-mCn 07:55 c Albumin 1.0 UNK 1.1-1.8 complet /Glob 013 ed SerPl-m 07:55 Rto Bilirub 0.4 0.2-1.0 complet 013 mg/dL ed SerPl-m 07:55 Cnc AST 26 U/L 15-37 complet SerPl-c 013 ed Cnc 07:55 ALT 48 U/L 30-65 complet SerPl-c 013 ed Cnc 07:55 ALP 133 U/L 50-136 complet SerPl-c 013 ed Cnc 07:55 Amylase SerPl-cCnc (12-24-2012 07:55) Amylase 12-24-2 79 U/L 25-115 complet 013 ed SerPl-c 07:55 Cnc LIPASE (12-24-2012 07:55) LIPASE 12-24-2 242 U/L 73-393 complet 013 ed 07:55 CBC with AUTO DIFF (12-24-2012 07:55) WBC # 04-12-2 11.8 4.8-10. complet Bld 013 K/MM3 8 ed Auto 07:55 RBC # 04-12-2 5.81 4.6-6.2 complet Bld 013 M/mm3 ed Auto 07:55 Hgb --2 17.3 14.1-18 complet Bld-mCn 013 g/dL .0 [...] 013 4 ed T 07:55 VOLUME Granulo 12-24-2 56.0 % 37.0-80 complet cytes 013 .0 ed Fr Bld 07:55 Auto LYMPH % -12-2 35.1 % 10-50 complet 013 ed 07:55 Monocyt 04-12-2 5.3 % 1.7-9.3 complet es Fr 013 ed Bld 07:55 Auto Eosinop -12-2 3.1 % 0.1-12. complet hil Fr 013 0 ed Bld 07:55 Auto Basophi -12-2 0.5 % 0.1-2.0 complet ls Fr 013 ed Bld 07:55 Auto Granulo 04-12-2 6.6 1.3-8.0 complet cytes # 013 K/mm3 ed Bld 07:55 Auto Lymphoc -12-2 4.2 0.7-4.5 complet ytes Fr 013 K/mm3 ed Bld 07:55 Auto Monocyt 12-2 0.6 0.1-1.0 complet es # 013 K/mm3 ed Bld 07:55 Auto Eosinop 12-2 0.4 0.0-0.4 complet hil # 013 K/mm3 ed Bld 07:55 Auto Basophi 12-2 0.1 0-0.2 complet ls # 013 K/MM3 ed Bld 07:55 Auto URINALYSIS/COMPLETE (12-24-2012 07:36) URINE 12-24-2 YELLOW YELLOW complet COLOR 013 ed 07:36 URINE 12-2 CLEAR CLEAR complet APPEARA 013 ed NCE 07:36 URINE 12-24-2 NEGATIV NEG complet GLUCOSE 013 E ed - 07:36 DIPSTIC K URINE 12-24-2 NEGATIV NEG complet BILIRUB 013 E ed IN - 07:36 DIPSTIC K URINE 12-24-2 NEGATIV NEG complet KETONE 013 E mg/dL ed 07:36 URINE 12-24-2 1.020 1.005-1 complet SPECIFI 013 UNK .030 ed C 07:36 GRAVITY URINE 12-24-2 1+ NEG complet BLOOD 013 ed 07:36 URINE 12-24-2 6.0 UNK 5.0-8.5 complet PH 013 ed 07:36 URINE 12-24-2 NEGATIV NEG complet PROTEIN 013 E mg/dL ed - 07:36 DIPSTIC K URINE 12-24-2 0.2 NEG complet UROBILI 013 E.U./dL ed NOGEN - 07:36 DIPSTIC K URINE 12-2 NEGATIV NEG complet NITRATE 013 E ed - 07:36 DIPSTIC K URINE 12-2 NEGATIV NEG complet LEUK 013 E ed ESTERAS 07:36 E URINE 12-24-2 10-20 0 complet RBC 013 rbc/hpf ed 07:36 URINE 12-2 OCC O complet WBC 013 wbc/hpf ed 07:36 URINE 12-2 OCC OCC complet SQUAMOU 013 #/hpf ed S CELLS 07:36 Procedures Procedure [place] [address] NIVIA ROGER ABDOMEN & 7 MEDICAL PELVIS IMAGING W/O ASS CONTRAST MATERIAL ECHO 85684 ELENO JOHANSEN TTHRC R-T [facility] 2D INC INC W/WOM-MOD E COMPL SPEC&COLR D RADEX 90891 ELENO JOHANSEN FOOT 7 [facility] COMPLETE INC INC MINIMUM [address] [place] [address] ELENO JOHANSEN UREA 7 [facility] NITROGEN INC INC QUANTITAT MENG CT THORAX [address] NIVIA SALAS 7 MEDICAL W/CONTRAS IMAGING T ASS MATERIAL LOCM Q9967 ELENO AMBULATOR [phone] [facility] MG[facility]ML INC C[facility], [place] [address] NIVIA SALAS ABDOMEN & 7 MEDICAL PELVIS IMAGING W/CONTRAS ASS T MATERIAL CREATININ 32676 ELENO JOHANSEN E BLOOD 7 [facility] INC INC COLLECTIO 54259 ELENO JOHANSEN N VENOUS 7 [facility] BLOOD INC INC VENIPUNCT URE CONTINUOU E0601 GAYATHRI TRINH S 7 HOME HOME POSITIVE MEDICAL MEDICAL AIRWAY EQUIPME EQUIPME PRESSURE DEVICE FACE MASK A7031 GAYATHRI TRINH 7 HOME HOME INTERFACE MEDICAL MEDICAL REPLCMT EQUIPME EQUIPME FULL FACE MASK EA FILTER A7038 GAYATHRI TRINH DISPBL 7 HOME HOME USED MEDICAL MEDICAL W/POS EQUIPME EQUIPME ARWAY PRESSURE DEVICE TUBING A7037 GAYATHRI TRINH USED WITH 7 HOME HOME POSITIVE MEDICAL MEDICAL AIRWAY EQUIPME EQUIPME PRESSURE DEVICE DRUG TEST 09700 ELENO JOHANSEN PRSMV 7 [facility] QUAL DIR INC INC OPTICAL OBS PER DAY CONTINUOU E0601 GAYATHRI TRINH S 7 HOME HOME POSITIVE MEDICAL MEDICAL AIRWAY EQUIPME EQUIPME PRESSURE DEVICE DRUG TEST 86482 ELENO JOHANSEN PRSMV 7 [facility] QUAL DIR INC INC OPTICAL OBS PER DAY CONTINUOU E0601 GAYATHRI TRINH S 7 HOME HOME POSITIVE MEDICAL MEDICAL AIRWAY EQUIPME EQUIPME PRESSURE DEVICE COMPREHEN 29850 ELENO JOHANSEN SIVE 7 [facility] METABOLIC INC INC PANEL HEMOGLOBI 96466 ELENO ELENO N 7 [facility] GLYCOSYLA INC INC ERICA A1C COLLECTIO 11028 ELENO TAYLORON N VENOUS 7 [facility]P BLOOD INC INC VENIPUNCT URE CONTINUOU E0601 GAYATHRIBRENDAN TRINH S 7 HOME HOME POSITIVE MEDICAL MEDICAL AIRWAY EQUIPME EQUIPME PRESSURE DEVICE HOSPITAL [address] [facility] 7 PHYSICIAN DAY S GROUP MANAGEMEN T 30 MIN/< SBSQ 78046 [place] [address] PHYSICIAN CARE/DAY S [place] [address] [place] [address] NIVIA ROGER ABDOMEN & 7 MEDICAL PELVIS IMAGING W/O ASS CONTRAST MATERIAL FINAL G9638 NIVIA ROGER REPORTS 7 MEDICAL W/O DOC IMAGING 1/MORE ASS DOSE REDUCTION TECH FINAL G9551 NIVIA ROGER REPR ABD 7 MEDICAL IMAG STS IMAGING W/O ASS INCIDNT FND LES NTD: INITIAL 67194 [facility] 7 PHYSICIAN CARE/DAY S [place] [address] [place] [address] NIVIA ROGER ABDOMEN & 7 MEDICAL PELVIS IMAGING W/O ASS CONTRAST MATERIAL CONTINUOU E0601 GAYATHRI TRINH S 7 HOME HOME POSITIVE MEDICAL MEDICAL AIRWAY EQUIPME EQUIPME PRESSURE DEVICE DRUG TEST G0481 ELENO JOHANSEN DEFINITV [address] ID INC INC METH P DAY 8-14 DRUG CL DRUG TST G0477 EELNO JOHANSEN PRESUMP;C 6 [facility] PBL [place]ING [place] [address] NIVIA SALAS ABDOMEN & 6 MEDICAL PELVIS IMAGING W/O ASS CONTRAST MATERIAL POLYSOM 96120 ELENO JOHANSEN 6/>YRS 6 [facility] SLEEP INC INC W/CPAP 4/> ADDL DEMETRIUS ATTND CONTINUOU E0601 GAYATHRI TRINH S 6 HOME HOME POSITIVE MEDICAL MEDICAL AIRWAY EQUIPME EQUIPME PRESSURE DEVICE DRUG TEST G0481 ELENO JOHANSEN DEFINITV [address] ID INC INC METH P DAY 8-[address] DR[address] OPHTH 49494 DANNI DANNI MEDICAL 6 AYAH AYAH XM&EVAL COMPRE NEW PT 1/> VST HEADGEAR A7035 GAYATHRI TRINH USED 6 HOME HOME W/POSITIV MEDICAL MEDICAL E AIRWAY EQUIPME EQUIPME PRESSURE DEVICE TUBING A7037 GAYATHRI TRINH USED WITH 6 HOME HOME POSITIVE MEDICAL MEDICAL AIRWAY EQUIPME EQUIPME PRESSURE DEVICE FILTER A7038 GAYATHRI TRINH DISPBL 6 HOME HOME USED MEDICAL MEDICAL W/POS EQUIPME EQUIPME ARWAY PRESSURE DEVICE FILTER A7039 GAYATHRI TRINH NON 6 HOME HOME DISPBL MEDICAL MEDICAL USED EQUIPME EQUIPME W/POS ARWAY PRESS DEVICE HUMDIFIR E0562 GAYATHRI TRINH HEATED 6 HOME HOME USED MEDICAL MEDICAL W/POS EQUIPME EQUIPME ARWAY PRESSURE DEVICE CONTINUOU E0601 GAYATHRI TRINH S 6 HOME HOME POSITIVE MEDICAL MEDICAL AIRWAY EQUIPME EQUIPME PRESSURE DEVICE FULL FACE A7030 GAYATHRI TRINH MASK 6 HOME HOME USED MEDICAL MEDICAL W/POS EQUIPME EQUIPME ARWAY PRESS DEVICE EA DRUG TEST G0481 [facility]ANSEN DEFINITV [address] ID INC INC METH P DAY 8- DRUG CL SLEEP STD 68299 [facility] JOHANSEN AIRFLOW 6 [facility] HRT INC INC RATE&O2 SAT EFFORT UNATT DRUG TST G0477 [facility] JOHANSEN PRESUMP;C 6 [facility] PBL BEING INC INC READ DC OPT OBV ONLY IM ADM [id number] [facility] PRQ ID 6 PHYSICIAN JASMYNE SUBQ/IM S GROUP NJXS 1 VACCINE IIV 12877 [facility] ADJUVANTE 6 PHYSICIAN JASMYNE D VACCINE S GROUP FOR INTRAMUSC ULAR USE BONE 81376 [facility] JOHANSEN &/JOINT 6 [facility] IMAGING INC INC WHOLE BODY TECHNETIU A9503 ELENO Arthur TC-99M 6 [facility] MEDRONATE INC INC DX UP TO 30 MCI COMPREHEN 66167 [facility] JOHANSEN SIVE 6 [facility] METABOLIC INC INC PANEL BLOOD 35421 [facility] JOHANSEN COUNT 6 [facility] COMPLETE INC INC AUTO&AUTO DIFRNTL WBC COLLECTIO 53459 [facility] JOHANSEN N VENOUS 6 [facility] BLOOD INC INC VENIPUNCT URE DRUG TST G0477 [facility] JOHANSEN PRESUMP;C 6 [facility] PBL BEING INC INC READ DC OPT OBV ONLY DRUG TEST G0481 [facility] JOHANSEN DEFINITV [address] ID INC INC METH P DAY 8-14 DRUG CL COMPREHEN 52269 [facility] JOHANSEN SIVE 6 [facility] [place] [address] [place] THORACIC 6 MEDICAL SPINE W/[place] [address] [place] ABDOMEN & 6 MEDICAL PELVIS IMAGING W/O ASS CONTRAST MATERIAL DRUG TEST G0481 [facility] JOHANSEN DEFINITV [address] ID INC INC METH P DAY 8-14 DRUG CL INJECTION J1100 [facility] 6 PHYSICIAN JASMYNE DEXAMETHO S GROUP SONE SODIUM PHOSPHATE 1 MG DRUG TST G0477 [facility] JOHANSEN PRESUMP;C 6 [facility] PBL BEING INC INC READ DC OPT OBV ONLY THERAPEUT 35648 [facility] IC 6 PHYSICIAN JASMYNE PROPHYLAC S GROUP TIC/DX INJECTION SUBQ/IM DRUG TST G0477 [facility] JOHANSEN PRESUMP;C 6 [facility] PBL BEING INC INC READ DC OPT OBV ONLY DRUG TEST G0481 [facility] JOHANSEN DEFINITV [address] ID INC INC METH P DAY 8-14 DRUG CL UNCLASSIF J3490 [facility] JOHANSEN IED DRUGS 6 [facility] [place] THORAX 92632 [facility] JOHANSEN 6 [facility] W/CONTRAS INC INC T MATERIAL LOCM Q9967 [facility] JOHANSEN [phone] 6 [facility] MG/ML INC INC [place] [address] [facility] JOHANSEN THYROID 6 [facility] STIMULATI INC INC NG HORMONE TSH COMPREHEN 93081 [facility] JOHANSEN SIVE 6 [facility] METABOLIC INC INC PANEL BLOOD 70841 [facility] JOHANSEN COUNT 6 [facility] COMPLETE INC INC AUTO&[place] [address] EL[facility] JOHANSEN UREA 6 [facility] NITROGEN INC INC QUANTITAT MENG COLLECTIO 35381 [facility] JOHANSEN N VENOUS 6 [facility] BLOOD INC INC VENIPUNCT URE CREATININ 01149 EL[facility] JOHANSEN E BLOOD 6 [facility] INC INC CT THORAX 59729 [facility] JOHANSEN 6 [facility] W/CONTRAS INC INC T MATERIAL UNCLASSIF J3490 [facility] JOHANSEN IED DRUGS 6 [place] [address] [facility] JOHANSEN ABDOMEN & 6 [facility] PELVIS INC INC W/CONTRAS T MATERIAL LOCM Q9967 [facility] JOHANSEN [phone] 6 [facility] MG/ML INC INC IODINE CONCENTRA TION PER ML COMPREHEN 45221 [facility] JOHANSEN SIVE 6 [facility] METABOLIC INC INC PANEL BLOOD 20787 [facility] JOHANSEN COUNT 6 [facility] COMPLETE INC INC AUTO&[place] [address] [facility] JOHANSEN INFUSION 6 [facility] THERAPY/P INC INC ROPHYLAXI S /DX 1ST TO 1 HR BLOOD 76868 [facility] JOHANSEN COUNT 6 [facility] COMPLETE INC INC AUTO&AUTO DIFRNTL WBC INJECTION J9299 [facility] JOHANSEN 6 [facility] NIVOLUMAB INC INC 1 MG BLOOD 04018 [facility] JOHANSEN COUNT 6 [facility] COMPLETE INC INC AUTO&AUTO DIFRNTL WBC BASIC 94635 ELENO JOHANSEN METABOLIC 6 [facility] PANEL INC INC CALCIUM TOTAL CHEMOTX 01456 ELENO JOHANSEN ADMN IV 6 [facility] NFS TQ UP INC INC 1 HR / SBST/[place] [address] [place] ABDOMEN & 5 MEDICAL PELVIS IMAGING W/CONTRAS ASS T MATERIAL CT THORAX 07414 [place] ALL 5 MEDICAL W/CONTRAS IMAGING T ASS MATERIAL CHEMOTX 67641 EL[facility] JOHANSEN ADMN IV 5 [facility] NFS TQ UP INC INC 1 HR SBST/DRUG COMPREHEN 39396 [facility] JOHANSEN SIVE 5 [facility] METABOLIC INC INC PANEL BLOOD 80029 [facility] JOHANSEN COUNT 5 [facility] COMPLETE INC INC AUTO&AUTO DIFRNTL WBC BLOOD 83867 [facility] JOHANSEN COUNT 5 [facility] COMPLETE INC INC AUTO&AUTO DIFRNTL WBC INJECTION C9453 [facility] TAYLORON 5 [facility] NIVOLUMAB INC INC 1 MG CHEMOTX 06193 EL[facility] JOHANSEN ADMN IV 5 [facility] NFS TQ UP INC INC 1 HR SBST/DRUG IIV3 47452 [facility] 5 PHYSICIAN JASMYNE SPLIT S GROUP VIRUS 0.5 ML DOSAGE IM USE IM ADM 02450 [facility] PRQ ID 5 PHYSICIAN JASMYNE SUBQ/IM S GROUP NJXS 1 VACCINE CHEMOTX 73468 [facility] JOHANSEN ADMN IV 5 [facility] NFS TQ UP INC INC 1 HR SBST/DRUG COLLECTIO 01058 [facility] JOHANSEN N VENOUS 5 [facility] [place] [address] [place] ABDOMEN 5 MEDICAL W/CONTRAS IMAGING T ASS MATERIAL BLOOD 97371 [facility] JOHANSEN COUNT 5 [facility] COMPLETE INC INC AUTO&AUTO DIFRNTL WBC CT THORAX 95715 [place] ALL 5 MEDICAL W/CONTRAS IMAGING T ASS MATERIAL COMPREHEN 16442 [facility] JOHANSEN SIVE 5 [facility] METABOLIC INC INC PANEL LOCM Q9967 EL[facility] JOHANSEN [phone] 5 [facility] MG/ML INC INC IODINE CONCENTRA TION PER ML BLOOD 82795 [facility] JOHANSEN COUNT 5 [facility] COMPLETE INC INC AUTO&AUTO DIFRNTL WBC CHEMOTX 93690 ELENO JOHANSEN ADMN IV 5 [facility] NFS TQ UP INC INC 1 HR SBST/DRUG CHEMOTX 05647 EL[facility] JOHANSEN ADMN IV 5 [facility] NFS TQ UP INC INC 1 HR SBST/DRUG BLOOD 55749 ELENO ELENO COUNT 5 [facility] COMPLETE INC INC AUTO&AUTO DIFRNTL WBC BLOOD 43007 [facility] JOHANSEN COUNT 5 [facility] COMPLETE INC INC AUTO&AUTO DIFRNTL WBC COMPREHEN 83709 ELENOIVONNE JOHANSEN SIVE 5 [facility] METABOLIC INC INC PANEL CHEMOTX 02621 EL[facility] JOHANSEN ADMN IV 5 [facility] NFS TQ UP INC INC 1 HR SBST/DRUG CHEMOTHER 06902 [facility] JOHANSEN APY ADMN 5 [facility] IV INC INC INFUSION TQ EA HR CHEMOTX 62769 ELENO ELENO ADMN IV 5 [facility] NFS TQ UP INC INC 1 HR SBST/DRUG COLLECTIO 77564 [facility] JOHANSEN N VENOUS 5 [facility] BLOOD INC INC VENIPUNCT URE BLOOD 90060 [facility] JOHANSEN COUNT 5 [facility] COMPLETE INC INC AUTO&AUTO DIFRNTL WBC COMPREHEN 71190 [facility] JOHANSEN SIVE 5 [facility] METABOLIC INC INC PANEL CT THORAX 33569 [facility] ALL 5 MEDICAL W/CONTRAS IMAGING T ASS MATERIAL LOCM Q9967 EL[facility] JOHANSEN [phone] 5 [facility] MG/ML INC [place] [address] [facility] ALL ABDOMEN & 5 MEDICAL PELVIS IMAGING W/CONTRAS ASS T MATERIAL BLOOD 38160 [facility] JOHANSEN COUNT 5 [facility] COMPLETE INC INC AUTO&AUTO DIFRNTL WBC COMPREHEN 52239 [facility] JOHANSEN SIVE 5 [facility] [address] EL[facility]OHANSEN AMYLASE 5 [facility] INC INC COLLECTIO 39520 EL[facility] JOHANSEN N VENOUS 5 [facility] [place] [address] EL[facility] JOHANSEN LIPASE 5 [facility] INC INC COLLECTIO 46503 ELENO JOHANSEN N VENOUS 5 [facility] BLOOD INC INC VENIPUNCT URE COMPREHEN 03531 [facility] JOHANSEN SIVE 5 [facility] [place] [address] ELENO JOHANSEN ERYTHROPO 5 [facility]OS[facility] IETIN INC INC BLOOD 16317 ELENO JOHANSEN COUNT 5 [facility] HOSP COMPLETE INC INC AUTO&[place] [address] [place] ABDOMEN & 5 MEDICAL SHELIA PELVIS IMAGING W/O ASS CONTRAST MATERIAL HOSPITAL 02953 [facility] 5 CARE R H DAY ASSOCIATE MANAGEMEN S T 30 MIN/< SBSQ 55983 [place] [address] CARE R H CARE/DAY ASSOCIATE 15 S MINUTES INITIAL 87918 [place] [address] CARE R H CARE/DAY ASSOCIATE 50 S MINUTES INITIAL 54021 [facility] INPATIENT 5 PHYSICIAN CONSULT S GROUP NEW/ESTAB [place] [address] [place] [address] [place] ABDOMEN & 5 MEDICAL PELVIS IMAGING W/O ASS CONTRAST MATERIAL RADEX 58651 [facility] SPINE 5 MEDICAL LUMBOSACR IMAGING AL ASS MINIMUM 4 VIEWS RADEX 74078 [facility] SPINE 5 MEDICAL CERVICAL IMAGING 4 OR 5 ASS VIEWS HOSPITAL 01173 [facility] 5 CARE R H DAY ASSOCIATE MANAGEMEN S T 30 MIN/< SBSQ 79522 [facility] 5 PHYSICIAN CARE/DAY S GROUP [address] THORAX 14397 [place] W/O 5 MEDICAL SHELIA CONTRAST IMAGING MATERIAL ASS INITIAL 37461 [place] [address] CARE R H CARE/DAY ASSOCIATE 50 S MINUTES INITIAL 05304 [facility] INPATIENT 5 PHYSICIAN CONSULT S GROUP NEW/ESTAB [place] [address] [place] [address] [place] ABDOMEN & 5 MEDICAL SHELIA PELVIS IMAGING W/CONTRAS ASS T MATERIAL ECG 37379 [facility] ROUTINE 4 JOSE F IMT ECG EMERGENCY W/LEAST PHYS 12 LDS I&R ONLY LIPID 92067 HARSHAD MARINO RANDALL PANEL 4 URINLS 31660 HARSHAD MARINO RANDALL DIP 4 STICK/TAB LET REAGNT NON-AUTO MICRSCPY METANEPHR 23155 [facility] [address] THORAX 00405 DANA DANA 4 SHELIA SHELIA W/CONTRAS T MATERIAL LOCM Q9967 [facility] JOHANSEN [phone] 4 [facility] MG/ML INC [place] [address] DANA DANA ABDOMEN & 4 SHELIA SHELIA PELVIS W/O CONTRAST MATERIAL Encounters Encounter Start End Date Code Location Performer Type Date OFFICE 48899 [facility] SRIVASTAV OUTPATIEN 7 7 PHYSICIAN A T NEW 60 S GROUP MINUTES EMERGENCY 25949 DANAY LLAMAS DEPT 7 7 PHYSICIAN VISIT S, [facility] HIGH SEVERITY& THREAT [facility] - 7 7 [facility] OUTPATIEN INC [facility] - 7 7 [facility] OUTPATIEN INC T OFFICE 27652 [facility] OUTPATIEN 7 7 PHYSICIAN T VISIT S GROUP 15 MINUTES [facility] EL[facility] - 7 7 [facility] OUTPATIEN INC T OFFICE 95245 [facility] OUTPATIEN 7 7 PHYSICIAN T VISIT S GROUP 25 MINUTES OFFICE 20545 [facility] OUTPATIEN 7 7 PHYSICIAN T VISIT S GROUP 25 MINUTES [facility] - 7 7 [facility] OUTPATIEN INC T OFFICE 18275 [facility] OUTPATIEN 7 7 PHYSICIAN T VISIT S GROUP 25 MINUTES [facility] - 7 7 [facility] OUTPATIEN INC T OFFICE 54895 [facility] OUTPATIEN 7 7 PHYSICIAN T VISIT S GROUP 25 MINUTES HOSPITAL [facility] - 7 7 [facility] INPATIENT INC EMERGENCY 34039 DANAY LLAMAS DEPT 7 7 PHYSICIAN VISIT S, [facility] HIGH SEVERITY& THREAT [facility] OFFICE 43896 EL[facility] SMITH OUTPATIEN 6 6 [facility] T VISIT 5 HOSPITAL MINUTES P OFFICE 98516 [facility] OUTPATIEN 6 6 PHYSICIAN T VISIT S GROUP 15 MINUTES HOSPITAL [facility] - 6 6 [facility] OUTPATIEN INC T EMERGENCY 03474 DANAY WHIPPLE DEPT 6 6 PHYSICIAN VISIT S, [facility] HIGH SEVERITY& THREAT [facility] - 6 6 [facility] OUTPATIEN [facility] - 6 6 [facility] OUTPATIEN INC [facility] [place] - 6 6 [facility] OUTPATIEN INC T OFFICE 22485 [facility] OUTPATIEN 6 6 PHYSICIAN JASMYNE T VISIT S GROUP 15 MINUTES [facility]OSPITAL [facility] - 6 6 [facility] OUTPATIEN INC T OFFICE 05543 [facility] 6 PHYSICIAN JASMYNE T VISIT S GROUP 15 MINUTES [facility]OSP[facility] - 6 6 [facility] OUTPATIEN INC T OFFICE 23695 [facility] SMITH OUTPATIEN 6 6 [facility] T VISIT HOSPITAL 10 P MINUTES HOSPITAL [facility] - 6 6 [facility] OUTPATIEN INC [facility] - 6 6 [facility] OUTPATIEN INC T OFFICE 36014 [facility] SMITH OUTPATIEN 6 6 [facility] VISIT [facility]OSPITAL 15 P MINUTES [facility]OSPITAL [place] - 6 6 [facility] OUTPATIEN INC T OFFICE 82272 [facility] OUTPATIEN 6 6 PHYSICIAN JASMYNE T VISIT S GROUP 15 MINUTES [facility]OSPITAL [facility] - 6 6 [facility] OUTPATIEN INC T OFFICE 05416 [facility] OUTPATIEN 6 6 PHYSICIAN JASMYNE T VISIT 5 S GROUP MINUTES EMERGENCY 90799 [facility] DEPT 6 6 PHYSICIAN JASMYNE VISIT S, [facility] HIGH SEVERITY& THREAT [facility] - 6 6 [facility] OUTPATIEN INC [facility] [place] - 6 6 [facility] OUTPATIEN INC T OFFICE 14074 [facility] OUTPATIEN 6 6 PHYSICIAN JASMYNE T VISIT S GROUP 15 MINUTES OFFICE 37788 [facility] SMITH OUTPATIEN 6 6 [facility] 10 P MINUTES HOSPITAL [facility] - 6 6 [facility] OUTPATIEN INC T OFFICE 98778 [facility] OUTPATIEN 6 6 PHYSICIAN JASMYNE T VISIT S GROUP 15 MINUTES OFFICE 11303 [facility] OUTPATIEN 6 6 PHYSICIAN JASMYNE T VISIT S GROUP 10 MINUTES OFFICE 75419 [facility] SMITH OUTPATIEN 6 6 [facility] 10 P MINUTES OFFICE 60226 [facility] OUTPATIEN 6 6 PHYSICIAN JASMYNE T VISIT S GROUP 10 MINUTES [facility]OSP[facility] - 6 6 [facility] OUTPATIEN [facility] - 6 6 [facility] OUTPATIEN INC [facility] - 6 6 [facility] OUTPATIEN INC T OFFICE 22260 [facility] OUTPATIEN 6 6 [facility] 10 P MINUTES [facility]OSPITAL [facility] - 6 6 [facility] OUTPATIEN INC T OFFICE 37354 [facility] OUTPATIEN 6 6 PHYSICIAN JASMYNE T VISIT S GROUP 10 MINUTES [facility]OSP[facility] - 6 6 [facility] OUTPATIEN INC T OFFICE 61083 [facility] SMITH OUTPATIEN 6 6 [facility] T VISIT HOSPITAL 10 P MINUTES OFFICE 99201 [facility] SMITH OUTPATIEN 6 6 [facility] T VISIT [facility]OSPITAL 10 P MINUTES OFFICE 36775 [facility] OUTPATIEN 6 6 PHYSICIAN JASMYNE T VISIT S GROUP 15 MINUTES [facility]OSPITAL [facility] - 6 6 [facility] OUTPATIEN INC T OFFICE 01415 [facility] SMITH OUTPATIEN 5 5 [facility] 10 P MINUTES OFFICE 16261 [facility] OUTPATIEN 5 5 PHYSICIAN JASMYNE T VISIT S GROUP 10 MINUTES [facility]OSP[facility] - 5 5 [facility] OUTPATIEN INC T OFFICE 18644 [facility] SMITH OUTPATIEN 5 5 [facility] 5 HOSPITAL MINUTES HOSP[facility] - 5 5 [facility] OUTPATIEN [facility] - 5 5 [facility] OUTPATIEN INC T OFFICE 94702 [facility] OUTPATIEN 5 5 PHYSICIAN JASMYNE T VISIT S GROUP 10 MINUTES OFFICE 72516 [facility] SMITH OUTPATIEN 5 5 [facility] VISIT [facility] 10 P [facility] - 5 5 [facility]PATIEN [facility] - 5 5 [facility] OUTPATIEN [facility] - 5 5 [facility] OUTPATIEN INC T OFFICE 32044 [facility] OUTPATIEN 5 5 PHYSICIAN JASMYNE T VISIT S GROUP 25 MINUTES [facility]OSP[facility] - 5 5 [facility] OUTPATIEN INC T [facility] [place] - 5 5 [facility] OUTPATIEN INC T OFFICE 53039 [place] SMITH OUTPATIEN 5 5 [facility] T VISIT 5 HOSPITAL MINUTES P OFFICE 98225 [facility] OUTPATIEN 5 5 PHYSICIAN JASMYNE T VISIT S GROUP 10 MINUTES OFFICE 91054 [facility] SMITH OUTPATIEN 5 5 [facility] T VISIT 5 HOSPITAL MINUTES P [facility] [place] - 5 5 [facility] OUTPATIEN INC T OFFICE 58497 [facility] 5 5 PHYSICIAN JASMYNE T VISIT S GROUP 15 MINUTES OFFICE 25849 [facility] SMITH OUTPATIEN 5 5 [facility] T VISIT HOSPITAL 10 P MINUTES OFFICE 74458 [facility] SRINIVAS TOD OUTPATIEN 5 5 PHYSICIAN T VISIT S GROUP 15 MINUTES [facility] - 5 5 [facility] OUTPATIEN INC T [facility] [place] - 5 5 [facility] OUTPATIEN INC T OFFICE 53153 [facility] SRINIVAS TOD OUTPATIEN 5 5 PHYSICIAN T VISIT S GROUP 15 MINUTES OFFICE 42910 [facility] 5 5 PHYSICIAN JASMYNE T VISIT S GROUP 15 MINUTES OFFICE 10514 [facility] SMITH OUTPATIEN 5 5 [facility] T VISIT HOSPITAL 10 P MINUTES [facility]OSPITAL [facility] - 5 5 [facility] OUTPATIEN INC T EMERGENCY 66983 [facility] DEPT 5 5 PHYSICIAN JASMYNE VISIT S, PLLC HIGH SEVERITY& THREAT FUNCJ OFFICE 68311 [facility] SRINIVAS TOD OUTPATIEN 5 5 PHYSICIAN T VISIT S GROUP 15 MINUTES OFFICE 32816 [facility] [facility] OUTPATIEN 5 5 [facility] 45 HOSPITAL MINUTES P EMERGENCY 97600 DANAY LLAMAS DEPT 5 5 PHYSICIAN JASMYNE VISIT S, [facility] HIGH SEVERITY& THREAT [facility] - 5 5 [facility] OUTPATIEN INC T OFFICE 39554 [facility] OUTPATIEN 5 5 [facility] T VISIT URGENT 25 TREAT MINUTES OFFICE 48025 [facility] 5 5 PHYSICIAN T VISIT S GROUP 15 MINUTES EMERGENCY 56424 [place] LLAMAS 5 5 [facility] T VISIT P HIGH/URGE NT SEVERITY [facility]OSPITAL [facility] - 5 5 [facility] INPATIENT INC EMERGENCY 44235 [facility] 4 4 [facility] EMERGENCY T VISIT PHYS MODERATE SEVERITY [facility]GENCY 55309 [facility] T VISIT PHYS HIGH/URGE NT SEVERITY OFFICE 33197 HARSHAD RANDALL [facility]SH[facility]ALL OUTPATIEN 4 4 T VISIT 15 MINUTES OFFICE 94043 HARSHAD RANDALL [facility] OUTPATIEN 4 4 T VISIT 15 MINUTES OFFICE 18711 HARSHAD RANDALL [facility] OUTPATIEN 4 4 T VISIT 25 MINUTES [facility]OSPITAL [facility] - 4 4 [facility] OUTPATIEN INC T OFFICE 90617 HARSHAD RANDALL [facility] OUTPATIEN 4 4 T VISIT 25 MINUTES EMERGENCY 47758 [facility] DEPT 4 4 [facility] VISIT HIGH SEVERITY& THREAT [facility] EMERGENCY 89507 ZENAIDA RANDALL ZENAIDA RANDALL 4 [facility] MOD[facility]ATE SEVERITY Inpatient IMP [place] Fields MD (IN) 4 10:57 4 12:45 [facility] Emergency KEEGAN WILL MD (ER) 4 08:06 4 09:20 [facility] Emergency KEEGAN Ramirez (ER) 3 15:40 3 17:05 [facility] E. Emergency KEEGAN Bronson MD (ER) 3 21:14 3 21:51 [facility] Emergency KEEGAN Ramirez (ER) 3 12:15 3 15:53 [facility] Cornel E. Inpatient ILEANA Sharma MD (IN) 3 08:44 3 09:40 [facility] Emergency KEEGAN Sanchez MD (ER) 3 08:10 3 09:46 [facility]
--- OUTSIDE RECORDS SUMMARY | 2017-06-29 15:49 | External Medical Summary Rpt | CCD ---
Author Author , VITO Organization VITO Address Unknown Phone Care Team Providers Care Pulp Bleacher Name Role Phone ALFARIS MOH, ALFARIS Unavailable [...] Unavailable DANA SHELIA SMITH, SMITH Unavailable Unavailable SMIHT PHI, Unavailable Unavailable SMITH PHI Elias Sanchez MD, Unavailable Unavailable Elias Sharma MD, Unavailable Unavailable Feliciano Sharma MD FARHAD, FARHAD Unavailable Unavailable FARHAD JASMYNE, FARHAD Unavailable Unavailable JASMYNE [facility] Unavailable Unavailable INC, [facility] Unavailable Unavailable HOSPITAL P, [facility], Unavailable Unavailable [facility] WHIPPLE, WHIPPLE Unavailable Unavailable JABARI NAN, JABARI Unavailable Unavailable NAN FRANCIS IMT, FRANCIS Unavailable Unavailable IMT [facility] Ninoska Bronson MD, Unavailable Unavailable Ninoska Bronson MD HARSHAD RANDALL, HARSHAD RANDALL Unavailable Unavailable HARSHAD RANDALL, HARSHAD RANDALL Unavailable Unavailable [facility] Unavailable Unavailable URGENT TREAT, [facility] [place] [facility], Unavailable Unavailable [facility], Un[facility]available [facility], [facility], Unavailable Unavailable [facility], Unavailable Unavailable [facility] SRINIVAS TOD, SRINIVAS TOD Unavailable Unavailable ZENAIDA RANDALL, ZENAIDA RANDALL Unavailable Unavailable ZENAIDA RANDALL, ZENAIDA RANDALL Unavailable Unavailable [facility] Unavailable Unavailable [facility], [facility] Unavailable [facility]available [facility], [facility] Unavailable Unavailable EMERGENCY PHYS, [facility] [place], Unavailable Unavailable [facility] Javier Fields MD, Unavailable Unavailable Javier Fields MD [facility] # Unavailable Unavailable [id number], [facility] # [id number] Cornel Ramirez Unavailable Unavailable CARMINA PIEDRA, Cornel HALL, MIYA HALL Unavailable Unavailable Purpose Continuity of Care Document - 12-24-2012 through 2016 Problems Code Diagnosis DOS Provider Status C649 MALIGNANT 05-06-2017 [facility] NEOPLASM PHYSICIANS UNS KIDNEY GROUP EXCEPT RENL PELVIS E785 HYPERLIPIDE 05-06-2017 [facility] KEYON PHYSICIANS UNSPECIFIED GROUP R079 CHEST PAIN 05-06-2017 [facility] UNSPECIFIED PHYSICIANS GROUP Z8679 PERSONAL 05-06-2017 [facility] HISTORY OT PHYSICIANS DISEASES GROUP CIRCULATORY SYSTEM C641 MALIGNANT 04-25-2017 [facility] NEOPLASM RT PHYSICIANS, KIDNEY PLLC EXCEPT RENAL PELVIS C7901 SECONDARY 04-25-2017 [facility] MALIG PHYSICIANS, NEOPLASM RT PLLC KIDNEY & RENAL PELV R1032 LEFT LOWER 04-25-2017 [facility] QUADRANT PHYSICIANS, PAIN PLLC R1084 GENERALIZED 04-25-2017 [facility]AL [facility] PAIN [facility] R160 HEPATOMEGAL 04-25-2017 [facility] Y NOT MEDICAL ELSEWHERE IMAGING ASS CLASSIFIED [id number] PAIN IN 03-19-2017 [facility] LEFT FOOT MEDICAL IMAGING ASS R011 CARDIAC 03-19-2017 [facility] UNSPECIFIED INC C7800 SECONDARY 02-06-2017 [facility] NEOPLASM OF INC UNSPECIFIED LUNG K5730 DIVERTICULO 02-06-2017 [facility] SIS LG MEDICAL INTEST W/O IMAGING ASS PERF/ABSC W/O BLEED R590 LOCALIZED 02-06-2017 [facility] ENLARGED MEDICAL LYMPH NODES IMAGING ASS R911 SOLITARY 02-06-2017 [facility] PULMONARY [facility]ICAL NODULE IMAGING ASS Z0389 ENCOUNTER 02-06-2017 [facility] SUSPCT DZ & INC COND RULED OUT E119 TYPE 2 02-03-2017 [facility] DIABETES PHYSICIANS MELLITUS GROUP WITHOUT COMPLICATIO NS I10 ESSENTIAL 02-03-2017 [facility] PRIMARY PHYSICIANS HYPERTENSIO GROUP N [id number] OTHER LONG 02-03-2017 [facility] TERM PHYSICIANS CURRENT GROUP DRUG THERAPY G4733 OBSTRUCTIVE 01-19-2017 [facility] ADULT [facility]ICAL PEDIATRIC EQUIPME J40 BRONCHITIS 10-06-2016 [facility] NOT PHYSICIANS SPECIFIED GROUP ACUTE OR CHRONIC C7989 SECONDARY 09-22-2016 [facility] NEOPLASM INC OT SPECIFIED SITES E118 TYPE 2 09-22-2016 [facility] DIABETES PHYSICIANS MELLITUS GROUP W/UNS COMPLICATIO NS E871 HYPO-OSMOLA 09-22-2016 [facility] LITY AND PHYSICIANS HYPONATREMI GROUP A K8590 ACUTE 09-22-2016 [facility] PANCREATITI PHYSICIANS S WO GROUP NECROSIS/IN FECTION UNSPEC Z720 TOBACCO USE 09-22-2016 [facility] PHYSICIANS GROUP K8580 OTHER ACUTE 09-21-2016 [facility], PANCREATITI PLLC S WO NECROSIS/IN FECTION R109 UNSPECIFIED 09-21-2016 [facility] ABDOMINAL [facility]ICAL PAIN IMAGING ASS R110 NAUSEA 09-21-2016 [facility] X95837 PERSONAL 09-21-2016 [facility] HISTORY MEDICAL OTHER IMAGING ASS MALIGNANT NEOPLASM KIDNEY K5731 DIVERTICULO 09-03-2016 [facility] SIS LG PHYSICIANS, INTEST W/O PLLC PERF/ABSC W/BLEED R1031 RIGHT LOWER 09-03-2016 [facility] PAIN IMAGING ASS G4713 RECURRENT 08-27-2016 [facility] HYPERSOMNIA PHYSICIANS GROUP J984 OTHER 08-27-2016 [facility] DISORDERS PHYSICIANS OF LUNG GROUP H527 UNSPECIFIED 07-28-2016 [facility] A[facility]AH DISORDER OF REFRACTION Z23 ENCOUNTER 06-16-2016 [facility] FOR PHYSICIANS IMMUNIZATIO GROUP N M546 PAIN IN 05-13-2016 [facility] THORACIC [facility] SPINE IMAGING ASS Z905 ACQUIRED 05-13-2016 [facility] ABSENCE OF MEDICAL KIDNEY IMAGING ASS G4730 SLEEP APNEA 04-30-2016 [facility] PHYSICIANS UNSPECIFIED GROUP M7711 LATERAL 04-30-2016 [facility] EPICONDYLIT PHYSICIANS IS RIGHT GROUP ELBOW E875 HYPERKALEMI 04-24-2016 [facility] A PHYSICIANS GROUP 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 [facility] ADRENAL MEDICAL GLAND IMAGING ASS UNSPECIFIED 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 [facility] 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 C7970 SECONDARY 02-18-2016 [facility] MALIGNANT [facility] NEOPLASM [facility] P UNS ADRENAL GLAND J302 OTHER 02-18-2016 [facility] SEASONAL PHYSICIANS ALLERGIC GROUP RHINITIS R918 OTHER 02-14-2016 [facility] NONSPECIFIC MEDICAL ABNORMAL IMAGING ASS FINDING OF LUNG FIELD R739 HYPERGLYCEM 10-19-2015 [facility] IA PHYSICIANS UNSPECIFIED GROUP Z5111 ENCOUNTER 10-10-2015 [facility] P TIC CHEMOTHERAP Y Z5181 ENCOUNTER 07-16-2015 [facility] THERAPEUTIC INC DRUG LEVEL MONITORING N281 CYST OF 06-29-2015 [place] KIDNEY MEDICAL ACQUIRED IMAGING ASS 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 06-14-2015 [facility] CURRENT USE PHYSICIANS OF OPIATE GROUP ANALGESIC 1890 MALIGNANT 06-04-2015 [facility] NEOPLASM OF [facility] KIDNEY INC EXCEPT PELVIS V5811 ENCOUNTER 06-04-2015 [facility] ANTINEOPLAS INC TIC CHEMOTHERAP Y V5869 LONG-TERM 05-15-2015 [facility] (CURRENT) PHYSICIANS USE OF GROUP OTHER MEDICATIONS 65676 OVERWEIGHT 04-23-2015 [facility] PHYSICIANS GROUP 4019 UNSPECIFIED 04-23-2015 [facility] ESSENTIAL PHYSICIANS HYPERTENSIO GROUP N 87535 DIVERTICULI 04-23-2015 [facility] TIS OF PHYSICIANS COLON GROUP 29097 DIVERTICULI 04-11-2015 [facility] TIS OF PHYSICIANS COLON WITH GROUP HEMORRHAGE 01312 ABDOMINAL 04-11-2015 [facility] PAIN, LEFT PHYSICIANS LOWER GROUP QUADRANT 99601 ABDOMINAL 04-11-2015 [facility] PAIN, PHYSICIANS PERIUMBILIC GROUP 17584 ABDOMINAL 04-11-2015 [facility] PAIN OTHER PHYSICIANS SPECIFIED GROUP SITE V1052 PERSONAL 04-11-2015 [facility] HISTORY OF PHYSICIANS MALIGNANT GROUP NEOPLASM OF KIDNEY 2559 UNSPECIFIED 04-06-2015 [facility] DISORDER MEDICAL OF ADRENAL IMAGING ASS GLANDS 5180 PULMONARY 04-06-2015 [facility] COLLAPSE [facility]ICAL [facility] ASS 29219 UNSPEC 04-06-2015 [facility] VENTRAL MEDICAL LUIS W/O IMAGING ASS MENTION OBST/GANGRE N 7856 ENLARGEMENT 04-06-2015 [place] OF LYMPH MEDICAL NODES IMAGING ASS 92464 ABDOMINAL 04-06-2015 [facility] PAIN, [facility] UNSPECIFIED INC SITE 26311 OTHER 04-06-2015 [place] NONSPECIFIC MEDICAL ABNORMAL IMAGING ASS FINDING OF LUNG FIELD 2724 OTHER AND 03-23-2015 [facility] UNSPECIFIED PHYSICIANS GROUP HYPERLIPIDE KEYON V4573 ACQUIRED 02-28-2015 [place] ABSENCE OF MEDICAL KIDNEY IMAGING ASS 2357 NEOPLASM 02-07-2015 [facility] P TRACH BRONCHUS&STEFANI NG 7231 CERVICALGIA 01-25-2015 [facility] 7245 UNSPECIFIED 01-25-2015 [facility] BACKACHE MEDICAL IM[facility]ING ASS 57904 DIVERTICULO 01-24-2015 [facility] OF ON LICENSE OF [facility] COLON URGENT TREAT 5770 ACUTE 01-24-2015 [facility] PANCREATITI ON LICENSE OF [facility] S URGENT TREAT 7242 LUMBAGO 01-24-2015 [facility] URGENT TREAT 95853 LEUKOCYTOSI 01-10-2015 [facility] S PHYSICIANS UNSPECIFIED GROUP 4011 ESSENTIAL 01-10-2015 [facility] HYPERTENSIO PHYSICIANS N, BENIGN GROUP 45692 COR 01-10-2015 [facility] ATHEROSLERO PHYSICIANS UNSPEC GROUP TYPE VESSEL [place]/NONA T 7880 RENAL COLIC 01-09-2015 [facility] 7881 DYSURIA 01-09-2015 [facility] 52594 SOLITARY 01-09-2015 [facility] NODULE INC 4739 UNSPECIFIED 07-18-2014 [facility]IN[facility] N EMERGENCY PHYS 04975 PAIN IN 07-18-2014 [facility] JOINT, N EMERGENCY ANKLE AND PHYS FOOT 16182 TENOSYNOVIT 07-18-2014 [facility] IS OF FOOT N EMERGENCY AND ANKLE PHYS 5990 URINARY 06-16-2014 [facility] TRACT N EMERGENCY INFECTION PHYS SITE NOT SPECIFIED 7804 DIZZINESS 06-16-2014 [facility] AND N EMERGENCY GIDDINESS PHYS 65453 GENERALIZED 05-06-2014 [facility] ANXIETY DISORDER 7248 OTHER 03-23-2014 [facility] SYMPTOMS REFERABLE TO BACK 2374 NEOPLASM 02-21-2014 [facility] BHV OTH&UNSPEC ENDOCRN GLANDS 7840 HEADACHE 02-21-2014 [facility] 20875 DIARRHEA 02-21-2014 [facility]SH[facility] RANDALL 2359 NEOPLASM 02-16-2014 [facility] BEHAVIOR INC OTH&UNSPEC RESP ORGN 5932 ACQUIRED 02-06-2014 [facility] CYST OF SHELIA KIDNEY 5939 UNSPECIFIED 02-06-2014 [facility] DISORDER SHELIA OF KIDNEY AND URETER 462 ACUTE 02-01-2014 [facility] PHARYNGITIS 272.1 272.1 PURE 10-08-2013 [place] [facility] HYPERGLYCER [facility] 305.1 305.1 10-08-2013 [place] TOBACCO USE [facility] 577.0 577.0 ACUTE 10-08-2013 [facility] V10.53 V10.53 PER 10-08-2013 [facility] MALIGN [facility] RENAL PELVIS V16.9 V16.9 10-08-2013 [place] [facility] CY NOS V17.3 V17.3 FAM 10-08-2013 [facility] HE[facility] DIS [facility] V18.0 V18.0 FAM 10-08-2013 [facility]AB[facility] MELLITUS [facility] 274.01 274.01 05-10-2013 [place] ACUTE GOUTY [facility] ARTHROPATHY 577.1 577.1 05-10-2013 [place] [facility] CHRONIC [facility] PANCREATITI [facility] S 455.0 455.0 INT 02-10-2013 [place] HEMORRHOID [facility] W/O COMPL Hospital 562.10 562.10 02-10-2013 [place] [facility] DIVERTICULO [facility] SIS COLON [facility] (W/O MENT OF HEMORRHAGE) 569.3 569.3 02-10-2013 [place] [facility] RECTAL & [facility] ANAL [facility] HEMORRHAGE 789.00 789.00 02-10-2013 [place] ABDOMINAL [facility], [facility] UNSPECIFIED SITE 272.4 272.4 01-15-2013 [place] [facility] HYPERLIPIDE [facility] KEYON NEC/NOS Hospital 560.1 560.1 01-15-2013 [place] [facility] PARALYTIC [facility] ILEUS Hospital V45.73 V45.73 01-15-2013 [place] [facility] ACQRD [facility] ABSENCE OF [facility] KIDNEY 789.06 789.06 12-24-2012 [place] [facility] ABDOMINAL [facility] PAIN, [facility] EPIGASTRIC Allergies, Adverse Reactions, Alerts Type Drug Allergy Adverse Reaction to Substance Substance Reaction Severity Penicillin [id number]/THROAT Severe Clinical Alert Notifications Alert Diabetes: no [...] 48 RT ZA 89 17 17 95 MD 0 45 PH IN AR E MA 10 CY MG #5 91 TA BL ET AL 16 01 17 30 30 00 [place] Ac LO 71 -2 -3 .0 00 L- ti PU 40 8- 0- 00 07 MA ve RI 04 20 20 48 RT NO 10 17 17 95 L 7 43 PH 10 AR 0 MA MG CY TA #5 BL 91 ET ES 68 05 30 30 00 [place] Ac CI 64 -2 -3 .0 00 L- ti TA 50 5- 0- 00 07 MA ve LO 52 20 20 48 RT MD 05 17 17 95 AM 4 46 PH AR 20 MA CY MG #5 TA 91 BL ET FL 60 05 16 30 00 [place] Ac UT 43 -2 -3 .0 00 L- ti IC 20 8- 0- 00 07 MA ve 26 20 20 48 RT ON 41 17 17 95 E 5 47 PH MD AR OP MA CY 50 #5 MC 91 G SP RA Y ME 68 05 60 30 00 [place] Ac TF 64 -2 -3 .0 00 L- ti OR 50 8- 0- 00 07 MA ve WV 54 20 20 48 RT N 55 17 17 95 HC 9 49 PH L AR 1, MA 00 CY 0 MG #5 91 TA BL ET LO 68 05 30 30 00 [place] Ac SA 64 -2 -2 .0 00 L- ti RT 50 3- 3- 00 07 MA ve AN 40 20 20 48 RT 75 17 17 95 PO 4 48 PH TA AR SS MA IU CY M 25 #5 91 MG TA B OM 60 05 30 30 00 [place] Ac EP 50 -2 -2 .0 00 L- ti RA 53 3- 3- 00 07 MA ve ZO 95 20 20 48 RT LE 20 17 [address] AR MA 20 CY MG #5 91 CA PS UL E GA 53 05 90 30 00 [place] Ac BA 74 -2 -2 .0 00 L- ti PE 60 3- 3- 00 07 MA ve NT 10 20 20 48 RT IN 10 17 17 95 5 52 PH 10 AR 0 MA MG CY CA #5 PS 91 UL E OX 00 05 06 90 30 00 [place] Ac YC 40 -2 -2 .0 00 L- ti OD 60 3- 3- 00 02 MA ve ON 52 20 20 24 RT E- 30 17 17 04 AC 1 42 PH ET AR AM MA IN CY OP HE #5 N 91 10 -3 25 MD 54 05 06 30 30 00 WA [...] ve LO 52 20 20 41 RT MD 05 17 17 81 AM 4 82 PH AR 20 MA CY MG #5 TA 91 BL ET LI 54 04 30 30 00 [place] Ac SI 45 -2 -0 .0 00 L- ti NO 80 8- 2- 00 07 MA ve MD 99 20 20 47 RT IL 91 [...] 50 1- 2- 00 07 MA ve WV 54 20 20 48 RT N 55 17 17 54 HC 9 56 PH L AR 1, MA 00 CY 0 MG #5 91 TA BL ET CY 68 05 30 30 00 [place] Ac CL 64 -0 -0 .0 00 L- ti OB 50 1- 2- 00 07 MA ve EN 51 20 20 48 RT ZA 89 17 17 54 MD 0 57 PH IN AR E MA 10 CY MG #5 91 TA BL ET FL 60 05 06 16 30 00 WA Ac UT 43 -0 -0 .0 00 L- ti IC 20 1- 2- 00 07 MA ve 26 20 20 48 RT ON 41 17 17 54 E 5 88 PH MD AR OP MA CY 50 #5 MC [...] LO 68 04 05 30 30 00 [place] Ac SA 64 -2 -2 .0 00 L- ti RT 50 4- 6- 00 07 MA ve AN 40 20 20 48 RT 75 17 17 41 PO 4 31 PH TA AR SS MA IU CY M 25 #5 91 MG TA B MD 54 04 05 30 30 00 [place] Ac AV 45 -1 -1 .0 00 L- ti 80 0- 2- 00 07 MA ve TA 92 20 20 45 RT TI 51 17 17 53 N 0 95 PH SO AR DI MA UM CY 40 #5 91 MG TA B FL 60 03 04 16 30 00 KY Ac UT 43 -2 -2 .0 00 L- ti IC 20 7- 8- 00 07 MA ve 26 20 20 45 RT ON 41 17 17 53 E 5 94 PH MD AR OP MA CY 50 #5 MC 91 G SP RA Y LI 68 03 04 30 30 00 [place] Ac SI 18 -2 -2 .0 00 L- ti NO 00 7- 8- 00 07 MA ve MD 51 20 20 47 RT IL 20 17 17 87 1 87 PH 2. AR 5 MA MG CY TA #5 BL 91 ET ME 68 03 04 60 30 00 [place] Ac TF 64 -2 -2 .0 00 L- ti OR 50 7- 8- 00 07 MA ve WV 54 20 20 47 RT N 55 17 17 87 HC 9 55 PH L AR 1, MA 00 CY 0 MG #5 91 TA BL ET OM 60 03 04 30 30 00 [place] Ac EP 50 -2 -2 .0 00 L- ti RA 53 7- 8- 00 07 MA ve ZO 95 20 20 47 RT LE 20 17 17 [address] AR MA 20 CY MG #5 91 CA PS UL E AL 16 03 04 30 30 00 [place] Ac LO 71 -2 -2 .0 00 L- ti PU 40 7- 8- 00 07 MA ve RI 04 20 20 47 RT NO 10 17 17 87 L 7 57 PH 10 AR 0 MA MG CY TA #5 BL 91 ET OX 00 03 04 90 30 00 [place] Ac YC 40 -2 -2 .0 00 [...] ve LO 52 20 20 47 RT MD 05 17 17 87 AM 4 72 [...] 47 RT ZA 89 17 17 90 MD 0 45 PH IN AR E MA 10 CY MG #5 91 TA BL ET MD 54 03 04 30 30 00 WA [...] 50 4- 1- 00 07 MA ve WV 54 20 20 47 RT N 55 [...] ve LO 52 20 20 46 RT MD 05 17 17 08 AM 4 69 [...] 47 RT ZA 89 17 17 32 MD 0 32 PH IN AR E MA 10 CY MG #5 91 TA BL ET MD 00 02 03 30 30 00 WA [...] 17 17 53 E 5 94 PH MD AR OP MA CY 50 #5 MC [...] 46 RT ZA 89 17 17 08 MD 0 68 PH IN AR E MA [...] ve LO 52 20 20 46 RT MD 05 17 17 08 AM 4 69 PH AR 20 MA CY MG #5 TA 91 BL ET ME 23 01 02 60 30 00 WA Ac TF 15 -2 -2 .0 00 L- ti OR 50 3- 4- 00 07 MA ve WV 10 20 20 46 RT N 41 [...] HE #5 N 91 10 -3 25 MD 54 12 30 30 00 [place] Ac [...] 20 7- 7- 00 07 MA ve WV 75 20 20 46 RT N 81 [...] 16 17 56 E 5 83 PH MD AR OP MA CY 50 #5 MC [...] 46 RT ZA 09 16 17 08 MD 0 68 PH IN AR E MA 10 CY MG #5 91 TA BL ET ES 68 12 30 30 00 WA Ac CI 64 -2 -2 .0 00 L- ti TA 50 7- 7- 00 07 MA ve LO 52 20 20 46 RT MD 05 16 17 08 AM 4 69 PH AR 20 MA CY MG #5 TA 91 BL ET OX 00 02 02 0 90 30 WA 22 GA Ac YC 40 -0 -0 0. L- 33 IN ti OD 60 6- 6- 00 MA 92 EY ve ON 52 20 20 0 RT 1 E- 30 16 16 WV AC 1 PH CH ET AR AE AM MA L IN CY S OP # HE N 10 10 05 -3 91 25 MD 54 01 02 2 30 30 WA 73 GA Ac AV 45 -0 -0 0. L- 94 IN ti 80 6- 5- 00 MA 01 EY ve TA 92 20 20 0 RT 6 TI 51 16 16 WV N 0 PH CH SO AR AE DI MA L UM CY S # 40 10 MG 05 91 TA B OM 60 01 02 2 30 30 WA 73 GA Ac EP 50 -0 -0 0. L- 94 IN ti RA 53 6- 5- 00 MA 01 EY ve ZO 95 20 20 0 RT 3 LE 20 16 16 WV [address] AR AE MA L 20 CY S # MG 10 CA 05 PS 91 UL E ES 68 01 02 2 30 30 WA 73 GA Ac CI 64 -0 -0 0. L- 94 IN ti TA 50 6- 5- 00 MA 01 EY ve LO 44 20 20 0 RT 4 MD 77 16 16 WV AM 0 PH CH AR AE 20 MA L CY S MG # TA 10 BL 05 ET 91 AT 51 01 02 2 30 30 WA 73 GA Ac EN 07 -0 -0 0. L- 94 IN ti OL 90 6- 5- 00 MA 01 EY ve OL 75 20 20 0 RT 7 96 16 16 WV 25 3 PH CH AR AE MG MA L CY S TA # BL ET 10 05 91 GE 31 01 02 2 60 30 WA 73 GA Ac MF 72 -0 -0 0. L- 94 IN ti IB 20 6- 5- 00 MA 01 EY ve RO 22 20 20 0 RT 5 ZI 50 16 16 WV L 5 PH CH 60 AR AE 0 MA L MG CY S # TA BL 10 ET 05 91 AL 16 01 02 2 30 30 WA 73 GA Ac LO 71 -0 -0 0. L- 94 IN ti PU 40 6- 5- 00 MA 01 EY ve RI 04 20 20 0 RT 2 NO 10 16 16 WV L 7 PH CH 10 AR AE 0 MA L MG CY S # TA BL 10 ET 05 91 CY 68 02 02 0 [address] Ac CL 64 -0 -0 0. L- 99 ON ti OB 50 5- 5- 00 MA 84 E ve EN 45 20 20 0 RT 3 DI ZA 09 16 16 XI MD 0 PH E IN AR D E MA 10 CY # MG 10 TA 05 BL 91 ET ON 53 01 02 0 50 25 WA 88 GA Ac ET 88 -1 -0 0. L- 32 IN ti OU 50 5- 5- 00 MA 98 EY ve CH 24 20 20 0 RT 1 45 16 16 WV UL 0 PH CH TR AR AE A MA L TE CY S ST # ST 10 RI 05 PS 91 PA 51 01 1 No NT 07 -2 OP 90 4- Lo RA 05 20 ng ZO 12 14 er LE 0 Ac SO ti D ve DR 40 MG TA B MD 00 01 1 No OT 00 -2 [...] 0M ti G ve Ta bl et MD 00 01 2 No ED 05 -2 [...] D ve DR 40 MG TA B MD 00 08 0 No ED 05 -2 NI 40 7- Lo SO 01 20 ng NE 82 13 er 0 20 Ac ti MG ve TA BL ET HY [address] 40 -2 OC 60 7- Lo OD 36 20 ng ON 56 13 er -A 2 CE Ac TA ti WV ve NO PH EN 5- 32 5 [...] ti 4H ve R Pa tc h MD 00 05 3 No OT 00 -0 [...] ti 4 ve MG /2 ML AL MD 00 04 0 No OT 00 -1 [...] 017 K/mm3 ed monocyt 00:25 e count [place] % 2 = 3.7 % 1.7-9.3 complet [...] SQUARE METERS Comment: If this patient is -Beninese, then multiply the Comment: result by 1.210. [...] Procedure [place] [address] [facility] ROEGR ABDOMEN & 7 MEDICAL PELVIS IMAGING W/O ASS CONTRAST MATERIAL ECHO 05225 [facility] TTHRC R-T 7 [facility] 2D INC INC W/WOM-MOD E COMPL SPEC&COLR D RADEX 58877 [facility] FOOT 7 [facility] COMPLETE INC INC MINIMUM 3 [place] [address] [facility] UREA 7 [facility] NITROGEN INC INC QUANTITAT MENG CT THORAX 05637 N[facility]IA SALAS 7 MEDICAL W/CONTRAS IMAGING T ASS MATERIAL LOCM Q9967 [facility] AMBULATOR [phone] [facility] Y SURGERY MG/ML INC CENTER, [place] [address] NIVIA SALAS ABDOMEN & 7 MEDICAL PELVIS IMAGING W/CONTRAS ASS T MATERIAL CREATININ 08058 [facility] E BLOOD 7 [facility] INC INC COLLECTIO 29713 [facility] N VENOUS 7 [facility] BLOOD INC INC VENIPUNCT URE CONTINUOU [...] AIRWAY EQUIPME EQUIPME PRESSURE DEVICE DRUG TEST 24985 [facility] PRSMV 7 [facility] QUAL DIR INC INC OPTICAL OBS PER DAY CONTINUOU E0601 [facility] TRINH S 7 HOME HOME POSITIVE MEDICAL MEDICAL AIRWAY EQUIPME EQUIPME PRESSURE DEVICE DRUG TEST 80120 [facility] PRSMV 7 [facility] QUAL DIR INC INC OPTICAL OBS PER DAY CONTINUOU E0601 [facility] TRINH S 7 HOME HOME POSITIVE MEDICAL MEDICAL AIRWAY EQUIPME EQUIPME PRESSURE DEVICE COMPREHEN 46867 [facility] JOHANESN SIVE 7 [facility] METABOLIC INC INC PANEL HEMOGLOBI 06553 [facility] N 7 [facility] GLYCOSYLA INC INC ERICA A1C COLLECTIO 79672 [facility] TAYLORON N VENOUS 7 [facility] BLOOD INC INC VENIPUNCT URE CONTINUOU E0601 [facility]RIBRENDAN TRINH S 7 HOME HOME POSITIVE MEDICAL MEDICAL AIRWAY EQUIPME EQUIPME PRESSURE DEVICE HOSPITAL 45[address] [facility] 7 PHYSICIAN DAY S GROUP MANAGEMEN T 30 MIN/< SBSQ [address] [place] [address] PHYSICIAN CARE/DAY S GROUP [address] [place] [address] NIVIA ROGER ABDOMEN & 7 MEDICAL PELVIS IMAGING W/O ASS CONTRAST MATERIAL FINAL G9638 N[facility]IA ROGER REPORTS 7 MEDICAL W/O DOC IMAGING 1/MORE ASS DOSE REDUCTION TECH FINAL G9551 [facility] ROGER REPR ABD 7 MEDICAL IMAG STS IMAGING W/O ASS INCIDNT FND LES NTD: INITIAL 27049 [facility] 7 PHYSICIAN CARE/DAY S [place] [address] [place] [address] NIVIA ROGER ABDOMEN & 7 MEDICAL PELVIS IMAGING W/O ASS CONTRAST MATERIAL CONTINUOU E0601 [facility] TRINH S 7 HOME HOME POSITIVE MEDICAL MEDICAL AIRWAY EQUIPME EQUIPME PRESSURE DEVICE DRUG TEST G0481 [facility] DEFINITV [address] ID INC INC METH P DAY 8-14 DRUG CL DRUG TST G0477 [facility] PRESUMP;C 6 [facility] PBL BEING [place] [address] NIVIA SALAS ABDOMEN & 6 MEDICAL PELVIS IMAGING W/O ASS CONTRAST MATERIAL POLYSOM 15757 [facility] 6/>YRS 6 [facility] SLEEP INC INC W/CPAP 4/> ADDL DEMETRIUS ATTND CONTINUOU E0601 GAYATHRI TRINH S 6 HOME HOME POSITIVE MEDICAL MEDICAL AIRWAY EQUIPME EQUIPME PRESSURE DEVICE DRUG TEST G0481 ELENO JOHANSEN DEFINITV [address] [address] [facility] [address] ID INC INC METH P DAY 8-14 [address] OPHTH 23822 DANNI DANNI MEDICAL 6 AYAH AYAH XM&EVAL [...] P DAY 8- DRUG CL SLEEP STD 47772 ELENO JOHANSEN AIRFLOW 6 [facility] HRT INC INC RATE&O2 SAT EFFORT UNATT DRUG TST G0477 ELENO JOHANSEN PRESUMP;C 6 [facility] INC READ DC OPT OBV ONLY IM ADM [id number] [facility] PRQ ID 6 PHYSICIAN JASMYNE SUBQ/IM S GROUP NJXS 1 VACCINE IIV 85766 [facility] ADJUVANTE 6 PHYSICIAN JASMYNE D VACCINE S GROUP FOR INTRAMUSC ULAR USE BONE 99406 ELENO JOHANSEN &/JOINT 6 [facility] IMAGING INC INC WHOLE BODY TECHNETIU A9503 ELENO Arthur TC-99M 6 [facility] MEDRONATE INC INC DX UP TO 30 MCI COMPREHEN 27537 ELENO JOHANSEN SIVE 6 [facility] METABOLIC INC INC PANEL BLOOD 25935 ELENO JOHANSEN COUNT 6 [facility] COMPLETE INC INC AUTO&AUTO DIFRNTL WBC COLLECTIO 87194 ELENO JOHANSEN N VENOUS 6 [facility] BLOOD INC INC VENIPUNCT URE DRUG TST G0477 ELENO JOHANSEN PRESUMP;C 6 [facility] INC READ DC OPT OBV ONLY DRUG TEST G0481 ELENO JOHANSEN DEFINITV [address] [address] [facility] [address] ID INC INC METH P DAY 8-14 DRUG CL COMPREHEN 80611 ELENO JOHANSEN SIVE 6 [facility] [place] [address] [place] [facility] 6 MEDICAL SPINE W/[place] [address] [place] [facility] ABDOMEN & 6 MEDICAL PELVIS IMAGING W/O ASS CONTRAST MATERIAL DRUG TEST G0481 ELENO JOHANSEN DEFINITV [address] [address] [facility] [address] ID INC INC METH P DAY 8-14 DRUG CL INJECTION J1100 [facility] 6 PHYSICIAN JASMYNE DEXAMETHO S GROUP SONE SODIUM PHOSPHATE 1 MG DRUG TST G0477 ELENO JOHANSEN PRESUMP;C 6 [facility] INC READ DC OPT OBV ONLY THERAPEUT 93704 [facility] 6 PHYSICIAN JASMYNE PROPHYLAC S GROUP [...] [facility] [place] THORAX [address] ELENO JOHANSEN 6 [facility] W/CONTRAS INC INC T MATERIAL LOCM Q9967 ELENO JOHANSEN [phone] [facility] MG/ML INC INC [place] [address] ELENO [facility]ID 6 [facility] STIMULATI INC INC NG HORMONE TSH COMPREHEN 37654 [facility] SIVE 6 [facility] METABOLIC INC INC PANEL BLOOD 08278 [facility] COUNT 6 [facility] COMPLETE INC INC AUTO&[place] [address] [facility] UREA 6 [facility] NITROGEN INC INC QUANTITAT MENG COLLECTIO 49117 EL[facility] N VENOUS 6 [facility] BLOOD INC INC VENIPUNCT URE CREATININ 90772 EL[facility] E BLOOD 6 [facility] INC INC CT THORAX 25002 [facility]EN 6 [facility] W/CONTRAS INC INC T MATERIAL UNCLASSIF J3490 ELENO JOHANSEN IED DRUGS 6 [place] [address] EL[place] JOHANSEN ABDOMEN & 6 [facility] PELVIS INC INC W/CONTRAS T MATERIAL LOCM Q9967 ELENO JOHANSEN [phone] 6 [facility] MG/ML INC INC IODINE CONCENTRA TION PER ML COMPREHEN 11518 [facility] SIVE 6 [facility] METABOLIC INC INC PANEL BLOOD 81169 [facility]ANSEN COUNT 6 [facility] COMPLETE INC INC AUTO&[place] [address] [facility] [facility] INFUSION 6 [facility] THERAPY/P INC INC ROPHYLAXI S /DX 1ST TO 1 HR BLOOD 41180 [facility] COUNT 6 [facility] COMPLETE INC INC AUTO&AUTO DIFRNTL WBC INJECTION J9299 [facility] 6 [facility] NIVOLUMAB INC INC 1 MG BLOOD 88632 EL[facility] COUNT 6 [facility] COMPLETE INC INC AUTO&AUTO DIFRNTL WBC BASIC 15723 ELENO [facility]ANSEN METABOLIC 6 [facility] PANEL INC INC CALCIUM TOTAL CHEMOTX 28108 ELENO JOHANSEN ADMN IV 6 [facility] NFS TQ UP INC INC 1 HR / SBST/[place] [address] [place] ABDOMEN & 5 MEDICAL PELVIS IMAGING W/CONTRAS ASS T MATERIAL CT THORAX 21747 [place] [facility] 5 MEDICAL W/CONTRAS IMAGING T ASS MATERIAL CHEMOTX 48333 EL[facility] JOHANSEN ADMN IV 5 [facility] NFS TQ UP INC INC 1 HR SBST/DRUG COMPREHEN 70755 [facility] SIVE 5 [facility] METABOLIC INC INC PANEL BLOOD 48563 EL[facility]ANSEN COUNT 5 [facility] COMPLETE INC INC AUTO&AUTO DIFRNTL WBC BLOOD 06475 [facility] COUNT 5 [facility] COMPLETE INC INC AUTO&AUTO DIFRNTL WBC INJECTION C9453 [facility] TAYLORON 5 [facility] NIVOLUMAB INC INC 1 MG CHEMOTX 38060 ELENO JOHANSEN ADMN IV 5 [facility] NFS TQ UP INC INC 1 HR SBST/DRUG IIV3 21114 [facility] VACCINE 5 PHYSICIAN JASMYNE SPLIT S GROUP VIRUS 0.5 ML DOSAGE IM USE IM ADM 52088 [facility] FAR[facility]AD PRQ ID 5 PHYSICIAN JASMYNE SUBQ/IM S GROUP NJXS 1 VACCINE CHEMOTX 08572 EL[place] JOHANSEN ADMN IV 5 [facility] NFS TQ UP INC INC 1 HR SBST/DRUG COLLECTIO 60998 [facility] [facility] N VENOUS 5 [facility] [place] [address] [place] ABDOMEN 5 MEDICAL W/CONTRAS IMAGING T ASS MATERIAL BLOOD 48076 [facility] COUNT 5 [facility] COMPLETE INC INC AUTO&AUTO DIFRNTL WBC CT THORAX 11382 [place] ALL 5 MEDICAL W/CONTRAS IMAGING T ASS MATERIAL COMPREHEN 19982 [facility] SIVE 5 [facility] METABOLIC INC INC PANEL LOCM Q9967 ELENO JOHANSEN [phone] 5 [facility] MG/ML INC INC IODINE CONCENTRA TION PER ML BLOOD 75577 EL[facility]ANSEN COUNT 5 [facility] COMPLETE INC INC AUTO&AUTO DIFRNTL WBC CHEMOTX 28315 ELENO JOHANSEN ADMN IV 5 [facility] NFS TQ UP INC INC 1 HR SBST/DRUG CHEMOTX 52548 ELENO JOHANSEN ADMN IV 5 [facility] NFS TQ UP INC INC 1 HR SBST/DRUG BLOOD 95539 ELENO ELENO COUNT 5 [facility] COMPLETE INC INC AUTO&AUTO DIFRNTL WBC BLOOD 29459 EL[facility] J[facility]ANSEN COUNT 5 [facility] COMPLETE INC INC AUTO&AUTO DIFRNTL WBC COMPREHEN 27182 ELENOIVONNE JOHANSEN SIVE 5 [facility] METABOLIC INC INC PANEL CHEMOTX 77784 ELENO JOHANSEN ADMN IV 5 [facility] NFS TQ UP INC INC 1 HR SBST/DRUG CHEMOTHER 49616 ELENO JOHANSEN APY ADMN 5 [facility] IV INC INC INFUSION TQ EA HR CHEMOTX 69092 ELENO ELENO ADMN IV 5 [facility] NFS TQ UP INC INC 1 HR SBST/DRUG COLLECTIO 40414 EL[place] JOHANSEN N VENOUS 5 [facility] BLOOD INC INC VENIPUNCT URE BLOOD 69685 EL[place] JOHANSEN COUNT 5 [facility] COMPLETE INC INC AUTO&AUTO DIFRNTL WBC COMPREHEN 30616 [facility] SIVE 5 [facility] METABOLIC INC INC PANEL CT THORAX 89450 [facility] ALL 5 MEDICAL W/CONTRAS IMAGING T ASS MATERIAL LOCM Q9967 ELNEO JOHANSEN [phone] 5 [facility] MG/ML INC [place] [address] [facility] ALL ABDOMEN & 5 MEDICAL PELVIS IMAGING W/CONTRAS ASS T MATERIAL BLOOD 63930 EL[facility]OHANSEN COUNT 5 [facility] COMPLETE INC INC AUTO&AUTO DIFRNTL WBC COMPREHEN 62227 EL[facility] SIVE 5 [facility] [address] ELENO J[facility]ANSEN AMYLASE 5 [facility] INC INC COLLECTIO 21671 EL[facility]OHANSEN N VENOUS 5 [facility] [place] [address] ELENO JOHANSEN LIPASE 5 [facility] INC INC COLLECTIO 14624 EL[facility] N VENOUS 5 [facility] BLOOD INC INC VENIPUNCT URE COMPREHEN 30257 EL[facility] JOHANSEN SIVE 5 [facility] [address] ELENO JOHANSEN ERYTHROPO 5 [facility]OS[facility] IETIN INC INC BLOOD 50581 ELENO JOHANSEN COUNT 5 [facility]OS[facility] COMPLETE INC INC AUTO&[place] [address] [place] ABDOMEN & 5 MEDICAL SHELIA PELVIS IMAGING W/O ASS CONTRAST MATERIAL HOSPITAL 05808 [facility] 5 CARE R H DAY ASSOCIATE MANAGEMEN S T 30 MIN/< SBSQ 90522 [place] [address] CARE R H CARE/DAY ASSOCIATE 15 S MINUTES INITIAL 26277 [place] [address] CARE R H CARE/DAY ASSOCIATE 50 S MINUTES INITIAL 99438 [facility] INPATIENT 5 PHYSICIAN CONSULT S GROUP NEW/ESTAB [place] [address] [place] [address] [place] ABDOMEN & 5 MEDICAL PELVIS IMAGING W/O ASS CONTRAST MATERIAL RADEX 96521 [facility] SPINE 5 MEDICAL LUMBOSACR IMAGING AL ASS MINIMUM 4 VIEWS RADEX 15459 [facility] SPINE 5 MEDICAL CERVICAL IMAGING 4 OR 5 ASS VIEWS HOSPITAL 02224 [facility] 5 CARE R H DAY ASSOCIATE MANAGEMEN S T 30 MIN/< SBSQ 85665 [facility] 5 PHYSICIAN CARE/DAY S GROUP [address] THORAX 65115 [place] W/O 5 MEDICAL SHELIA CONTRAST IMAGING MATERIAL ASS INITIAL 23567 [place] [address] CARE R H CARE/DAY ASSOCIATE 50 S MINUTES INITIAL 00180 [facility] INPATIENT 5 PHYSICIAN CONSULT S GROUP NEW/ESTAB [place] [address] [place] [address] [place] ABDOMEN & 5 MEDICAL SHELIA PELVIS IMAGING W/CONTRAS ASS T MATERIAL ECG [address] [facility] ROUTINE 4 JOSE F IMT ECG EMERGENCY W/LEAST PHYS 12 LDS I&R ONLY LIPID 51808 HARSHAD MARINO RANDALL PANEL 4 URINLS 96426 [facility]SH[facility] MARINO RANDALL DIP 4 STICK/TAB LET REAGNT NON-AUTO MICRSCPY METANEPHR 01893 [facility] [address] THORAX 15717 DANA DANA 4 SHELIA SHELIA W/CONTRAS T MATERIAL LOCM Q9967 ELENO JOHANSEN [phone] 4 [facility] MG/ML INC [place] [address] DANA DANA ABDOMEN & 4 SHELIA SHELIA PELVIS W/O CONTRAST MATERIAL Encounters Encounter Start End Date Code Location Performer Type Date OFFICE 17765 [facility] SRIVASTAV OUTPATIEN 7 7 PHYSICIAN A T NEW 60 S GROUP MINUTES EMERGENCY 51587 DANAY LLAMAS DEPT 7 7 PHYSICIAN VISIT S, [facility] HIGH SEVERITY& THREAT [facility] EL[facility] - 7 7 [facility] OUTPATIEN INC [facility] - 7 7 [facility] OUTPATIEN INC T OFFICE 40964 [facility] FAR[facility]AD OUTPATIEN 7 7 PHYSICIAN T VISIT S GROUP 15 MINUTES [facility] ELENO - 7 7 [facility] OUTPATIEN INC T OFFICE 30522 [facility] OUTPATIEN 7 7 PHYSICIAN T VISIT S GROUP 25 MINUTES OFFICE 22573 [facility] OUTPATIEN 7 7 PHYSICIAN T VISIT S GROUP 25 MINUTES [facility] ELENO - 7 7 [facility] OUTPATIEN INC T OFFICE 25921 [facility] OUTPATIEN 7 7 PHYSICIAN T VISIT S GROUP 25 MINUTES [facility] EL[facility] - 7 7 [facility] OUTPATIEN INC T OFFICE 92117 [facility] OUTPATIEN 7 7 PHYSICIAN T VISIT S GROUP 25 MINUTES HOSPITAL [facility] - 7 7 [facility] INPATIENT INC EMERGENCY 64445 DANAY LLAMAS DEPT 7 7 PHYSICIAN VISIT S, [facility] HIGH SEVERITY& THREAT [facility] OFFICE 65761 ELENO SMITH OUTPATIEN 6 6 [facility] T VISIT 5 HOSPITAL MINUTES P OFFICE 32205 [facility] OUTPATIEN 6 6 PHYSICIAN T VISIT S GROUP 15 MINUTES HOSPITAL [facility] - 6 6 [facility] OUTPATIEN INC T EMERGENCY 38432 DANAY WHIPPLE DEPT 6 6 PHYSICIAN VISIT S, [facility] HIGH SEVERITY& THREAT [facility] ELENO - 6 6 [facility] OUTPATIEN [facility] EL[facility] - 6 6 [facility] OUTPATIEN INC [facility] [place] - 6 6 [facility] OUTPATIEN INC T OFFICE 01113 [facility] OUTPATIEN 6 6 PHYSICIAN JASMYNE T VISIT S GROUP 15 MINUTES [facility]OSPITAL [facility] - 6 6 [facility] OUTPATIEN INC T OFFICE 50719 [facility] OUTPATIEN 6 6 PHYSICIAN JASMYNE T VISIT S GROUP 15 MINUTES HOSPITAL [facility] - 6 6 [facility] OUTPATIEN INC T OFFICE 45214 [facility] SMITH OUTPATIEN 6 6 [facility] T VISIT HOSPITAL 10 P MINUTES HOSPITAL [facility] - 6 6 [facility] OUTPATIEN INC [facility] - 6 6 [facility] OUTPATIEN INC T OFFICE 11476 ELENO SMITH OUTPATIEN 6 6 [facility] T VISIT HOSPITAL 15 P MINUTES [facility]OSPITAL [facility] - 6 6 [facility] OUTPATIEN INC T OFFICE 14285 [facility] OUTPATIEN 6 6 PHYSICIAN JASMYNE T VISIT S GROUP 15 MINUTES HOSPITAL [facility] - 6 6 [facility] OUTPATIEN INC T OFFICE 43506 [facility] OUTPATIEN 6 6 PHYSICIAN JASMYNE T VISIT 5 S GROUP MINUTES EMERGENCY 89948 [facility] DEPT 6 6 PHYSICIAN JASMYNE VISIT S, [facility] HIGH SEVERITY& THREAT [facility] - 6 6 [facility] OUTPATIEN INC [facility] [place] - 6 6 [facility] OUTPATIEN INC T OFFICE 17835 [facility] OUTPATIEN 6 6 PHYSICIAN JASMYNE T VISIT S GROUP 15 MINUTES OFFICE 12317 [place] SMITH OUTPATIEN 6 6 [facility] 10 P MINUTES HOSPITAL [place] - 6 6 [facility] OUTPATIEN INC T OFFICE 04245 [facility] OUTPATIEN 6 6 PHYSICIAN JASMYNE T VISIT S GROUP 15 MINUTES OFFICE 46887 [facility] OUTPATIEN 6 6 PHYSICIAN JASMYNE T VISIT S GROUP 10 MINUTES OFFICE 53549 [place] SMITH OUTPATIEN 6 6 [facility] 10 P MINUTES OFFICE 01962 [facility] OUTPATIEN 6 6 PHYSICIAN JASMYNE T VISIT S GROUP 10 MINUTES HOSP[facility] - 6 6 [facility] OUTPATIEN [facility] - 6 6 [facility]PAT[facility] - 6 6 [facility] OUTPATIEN INC T OFFICE 23459 EL[facility] SMITH OUTPATIEN 6 6 [facility] 10 P MINUTES HOSPITAL [facility] - 6 6 [facility] OUTPATIEN INC T OFFICE 02007 [facility] OUTPATIEN 6 6 PHYSICIAN JASMYNE T VISIT S GROUP 10 MINUTES HOSPITAL [place] - 6 6 [facility] OUTPATIEN INC T OFFICE 78750 [place] SMITH OUTPATIEN 6 6 [facility] T VISIT HOSPITAL 10 P MINUTES OFFICE 45753 [place] SMITH OUTPATIEN 6 6 [facility] T VISIT HOSPITAL 10 P MINUTES OFFICE 70615 [facility] OUTPATIEN 6 6 PHYSICIAN JASMYNE T VISIT S GROUP 15 MINUTES HOSPITAL [facility] - 6 6 [facility] OUTPATIEN INC T OFFICE 43152 [place] SMITH OUTPATIEN 5 5 [facility] 10 P MINUTES OFFICE 89050 [facility] OUTPATIEN 5 5 PHYSICIAN JASMYNE T VISIT S GROUP 10 MINUTES [facility]OSPITAL [facility] - 5 5 [facility] OUTPATIEN INC T OFFICE 64805 EL[facility] SMITH OUTPATIEN 5 5 [facility] 5 HOSPITAL MINUTES [facility]OS[facility] - 5 5 [facility]PATIEN [facility] - 5 5 [facility] OUTPATIEN INC T OFFICE 99110 [facility] OUTPATIEN 5 5 PHYSICIAN JASMYNE T VISIT S GROUP 10 MINUTES OFFICE 76798 [place] SMITH OUTPATIEN 5 5 [facility] VISIT [facility] 10 P [facility] [place] - 5 5 [facility]PATIEN [facility] - 5 5 [facility] OUTPATIEN [facility] - 5 5 [facility] OUTPATIEN INC T OFFICE 15827 [facility] OUTPATIEN 5 5 PHYSICIAN JASMYNE T VISIT S GROUP 25 MINUTES [facility]OSP[facility] [place] - 5 5 [facility] OUTPATIEN INC T [facility] [place] - 5 5 [facility] OUTPATIEN INC T OFFICE 23005 [place] SMITH OUTPATIEN 5 5 [facility] T VISIT 5 HOSPITAL MINUTES P OFFICE 74271 [facility] OUTPATIEN 5 5 PHYSICIAN JASMYNE T VISIT S GROUP 10 MINUTES OFFICE 65349 [place] SMITH OUTPATIEN 5 5 [facility] T VISIT 5 HOSPITAL MINUTES P [facility] [place] - 5 5 [facility] OUTPATIEN INC T OFFICE 35658 [facility] OUTPATIEN 5 5 PHYSICIAN JASMYNE T VISIT S GROUP 15 MINUTES OFFICE 94241 [place] SMITH OUTPATIEN 5 5 [facility] T VISIT HOSPITAL 10 P MINUTES OFFICE 63207 [facility] SRINIVAS TOD OUTPATIEN 5 5 PHYSICIAN T VISIT S GROUP 15 MINUTES [facility]OSP[facility] - 5 5 [facility] OUTPATIEN INC T [facility] [place] - 5 5 [facility] OUTPATIEN INC T OFFICE 73490 [facility] SRINIVAS TOD OUTPATIEN 5 5 PHYSICIAN T VISIT S GROUP 15 MINUTES OFFICE 31901 [facility] OUTPATIEN 5 5 PHYSICIAN JASMYNE T VISIT S GROUP 15 MINUTES OFFICE 46810 [place] SMITH OUTPATIEN 5 5 [facility] T VISIT HOSPITAL 10 P MINUTES HOSPITAL [place] - 5 5 [facility] OUTPATIEN INC T EMERGENCY 67828 [facility] DEPT 5 5 PHYSICIAN JASMYNE VISIT S, PLLC HIGH SEVERITY& THREAT [facility] OFFICE 63743 [facility] SRINIVAS TOD OUTPATIEN 5 5 PHYSICIAN T VISIT S GROUP 15 MINUTES OFFICE 37081 [facility] [facility] OUTPATIEN 5 5 [facility] 45 HOSPITAL MINUTES P EMERGENCY 28236 DANAY LLAMAS DEPT 5 5 PHYSICIAN JASMYNE VISIT S, [facility] HIGH SEVERITY& THREAT [facility] - 5 5 [facility] OUTPATIEN INC T OFFICE 61984 [facility] BARBOZA OUTPATIEN 5 5 [facility] T VISIT URGENT 25 TREAT MINUTES OFFICE 38769 [facility] 5 PHYSICIAN T VISIT S GROUP 15 MINUTES EMERGENCY 30664 [place] LLAMAS 5 5 [facility] T VISIT P HIGH/URGE NT SEVERITY [facility]OSPITAL [place] - 5 5 [facility] INPATIENT INC EMERGENCY 45337 [facility] ALFARIS 4 4 [facility] EMERGENCY T VISIT PHYS MODERATE SEVERITY EMERGENCY 01262 [facility] EM[facility] T VISIT PHYS HIGH/URGE NT SEVERITY OFFICE 99097 HARSHAD RANDALL [facility]ALL OUTPATIEN 4 4 T VISIT 15 MINUTES OFFICE 18292 HARSHAD RANDALL [facility] OUTPATIEN 4 4 T VISIT 15 MINUTES OFFICE 10830 HARSHAD RANDALL [facility] OUTPATIEN 4 4 T VISIT 25 MINUTES [facility] - 4 4 [facility] OUTPATIEN INC T OFFICE 32297 HARSHAD RANDALL [facility]SH[facility] RANDALL OUTPATIEN 4 4 T VISIT 25 MINUTES EMERGENCY 53558 [facility] DEPT 4 4 [facility] VISIT HIGH SEVERITY& THREAT [facility] EMERGENCY 40330 ZENAIDA RANDALL ZENAIDA RANDALL 4 [facility] MODERATE SEVERITY Inpatient IMP Eleno Fields MD (IN) 4 10:57 4 12:45 [facility] Emergency KEEGAN WILL MD (ER) 4 08:06 4 09:20 [facility] Emergency KEEGAN Ramirez (ER) 3 15:40 3 17:05 [facility] E. Emergency KEEGAN Bronson MD (ER) 3 21:14 3 21:51 [facility] Emergency KEEGAN Ramirez (ER) 3 12:15 3 15:53 [facility] E. Inpatient ILEANA Sharma MD (IN) 3 08:44 3 09:40 [facility] Emergency KEEGAN Sanchez MD (ER) 3 08:10 3 09:46 [facility]
--- OUTSIDE RECORDS SUMMARY | 2017-06-29 15:56 | External Medical Summary Rpt | CCD ---
Author Author , VITO Organization [facility] Address Unknown Phone Care Team Providers Care Automotive Service Technician Name Role Phone ALFARIS MOH, ALFARIS Unavailable Unavailable [facility] WILL BRO, WILL Unavailable Unavailable BRO BEINEKE, BEINEKE Unavailable Unavailable ROGER, ROGER Unavailable Unavailable ROGER ALL, ROGER ALL Unavailable Unavailable DANNI AYAH, ADNNI Unavailable Unavailable AYAH DANNI AYAH, DANNI Unavailable Unavailable AYAH DANA SHELIA, Unavailable Unavailable DANA SHELIA DANA SHELIA, Unavailable Unavailable DANA SHELIA SMITH, SMITH Unavailable Unavailable SMITH PHI, Unavailable Unavailable SMITH PHI FARHAD, FARHAD Unavailable Unavailable FARHAD JASMYNE, FARHAD Unavailable Unavailable JASMYNE [facility] Unavailable Unavailable INC, [facility] Un[facility] Un[facility], [facility], Unavailable Unavailable [facility] WHIPPLE, WHIPPLE Unavailable Unavailable JABARI NAN, JABARI Unavailable Unavailable NAN FRANCIS IMT, FRANCIS Unavailable Unavailable IMT [facility] Unavailable Unavailable [facility], [facility] HARSHAD RANDALL, HARSHAD RANDALL Unavailable Unavailable HARSHAD RANDALL, HARSHAD RANDALL Unavailable Unavailable [facility] Unavailable Unavailable URGENT T[facility], [facility], Unavailable [...] Unavailable Unavailable [facility], [facility], Unavailable Unavailable [facility] # Unavailable Unavailable [id number], [facility] # [id number] Purpose Continuity of Care Document - 02-01-2014 through 2016 Problems Code Diagnosis DOS Provider Status C649 MALIGNANT 05-06-2017 [facility] NEOPLASM PHYSICIANS UNS KIDNEY GROUP EXCEPT RENL PELVIS E785 HYPERLIPIDE 05-06-2017 [facility] KEYON PHYSICIANS UNSPECIFIED GROUP R079 CHEST PAIN 05-06-2017 [facility] UNSPECIFIED PHYSICIANS GROUP Z8679 PERSONAL 05-06-2017 [facility] HISTORY OT PHYSICIANS DISEASES GROUP CIRCULATORY SYSTEM C641 MALIGNANT 04-25-2017 [facility] NEOPLASM RT PHYSICIANS, KIDNEY PLLC EXCEPT RENAL PELVIS C7901 SECONDARY 04-25-2017 [facility] MALIG PHYSICIANS, NEOPLASM RT PLLC KIDNEY & RENAL PELV R1032 LEFT LOWER 04-25-2017 [facility] QUAD[facility]ANT PHYSICIANS, PAIN PLLC R1084 GENERALIZED 04-25-2017 [facility] ABDOMINAL [facility] PAIN IMAGING ASS R160 HEPATOMEGAL 04-25-2017 [place] Y NOT MEDICAL ELSEWHERE IMAGING ASS CLASSIFIED [id number] PAIN IN 03-19-2017 [place] LEFT FOOT MEDICAL IMAGING ASS R011 CARDIAC 03-19-2017 [facility] UNSPECIFIED INC C7800 SECONDARY 02-06-2017 [facility] NEOPLASM OF INC UNSPECIFIED LUNG K5730 DIVERTICULO 02-06-2017 [place] SIS LG MEDICAL INTEST W/O IMAGING ASS PERF/ABSC W/O BLEED R590 LOCALIZED 02-06-2017 [place] ENLARGED MEDICAL LYMPH NODES IMAGING ASS R911 SOLITARY 02-06-2017 [place] PULMONARY MEDICAL NODULE IMAGING ASS Z0389 ENCOUNTER 02-06-2017 [facility]TH [facility] SUSPCT DZ & INC COND RULED OUT E119 TYPE 2 02-03-2017 [facility] DIABETES PHYSICIANS MELLITUS GROUP WITHOUT COMPLICATIO NS I10 ESSENTIAL 02-03-2017 [facility] PRIMARY PHYSICIANS HYPERTENSIO GROUP N [id number] OTHER LONG 02-03-2017 [facility] TERM PHYSICIANS CURRENT GROUP DRUG THERAPY G4733 OBSTRUCTIVE 01-19-2017 [facility] SLEEP HOME APNEA ADULT MEDICAL PEDIATRIC EQUIPME J40 BRONCHITIS 10-06-2016 [facility] NOT PHYSICIANS SPECIFIED GROUP ACUTE OR CHRONIC C7989 SECONDARY 09-22-2016 [facility] NEOPLASM INC OTH SPECIFIED SITES E118 TYPE 2 09-22-2016 [facility] DIABETES PHYSICIANS MELLITUS GROUP W/UNS COMPLICATIO NS E871 HYPO-OSMOLA 09-22-2016 [facility] LITY AND PHYSICIANS HYPONATREMI GROUP A K8590 ACUTE 09-22-2016 [facility] PANCREATITI PHYSICIANS S WO GROUP NECROSIS/IN FECTION UNSPEC Z720 TOBACCO USE 09-22-2016 [facility] PHYSICIANS GROUP K8580 OTHER ACUTE 09-21-2016 [facility] PHYSICIANS, PANCREATITI [facility] S WO NECROSIS/IN FECTION R109 UNSPECIFIED 09-21-2016 [facility] ABD[facility]INAL [facility] PAIN IMAGING ASS R110 NAUSEA 09-21-2016 [facility] G33509 PERSONAL 09-21-2016 [place] HISTORY MEDICAL OTHER IMAGING ASS MALIGNANT NEOPLASM KIDNEY K5731 DIVERTICULO 09-03-2016 [facility] SIS LG PHYSICIANS, INTEST W/O PLLC PERF/ABSC W/BLEED R1031 RIGHT LOWER 09-03-2016 [facility] PAIN IMAGING ASS G4713 RECURRENT 08-27-2016 [facility] HYPERSOMNIA PHYSICIANS GROUP J984 OTHER 08-27-2016 [facility] DISORDERS PHYSICIANS OF LUNG GROUP H527 UNSPECIFIED 07-28-2016 DANNI AYAH DISORDER OF REFRACTION Z23 ENCOUNTER 06-16-2016 [facility] FOR PHYSICIANS IMMUNIZATIO GROUP N M546 PAIN IN 05-13-2016 [place] THORACIC MEDICAL SPINE IMAGING ASS Z905 ACQUIRED 05-13-2016 [place] ABSENCE OF MEDICAL KIDNEY IMAGING ASS G4730 SLEEP APNEA 04-30-2016 [facility] PHYSICIANS UNSPECIFIED GROUP M7711 LATERAL 04-30-2016 [facility] EPICONDYLIT PHYSICIANS IS RIGHT GROUP ELBOW E875 HYPERKALEMI 04-24-2016 [facility] A PHYSICIANS GROUP 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 [place] ADRENAL MEDICAL GLAND IMAGING ASS UNSPECIFIED 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 C7970 SECONDARY 02-18-2016 [place] MALIGNANT [facility] P UNS ADRENAL GLAND J302 OTHER 02-18-2016 [facility] SEASONAL PHYSICIANS ALLERGIC GROUP RHINITIS R918 OTHER 02-14-2016 [place] NONSPECIFIC MEDICAL ABNORMAL IMAGING ASS FINDING OF LUNG FIELD R739 HYPERGLYCEM 10-19-2015 [facility] IA PHYSICIANS UNSPECIFIED GROUP Z5111 ENCOUNTER 10-10-2015 [facility] P TIC CHEMOTHERAP Y Z5181 ENCOUNTER 07-16-2015 [facility] DRUG LEVEL MONITORING N281 CYST OF 06-29-2015 [place] KIDNEY MEDICAL ACQUIRED IMAGING ASS V19941 SENIOR CARE 06-14-2015 [facility] CURRENT USE PHYSICIANS OF OPIATE GROUP ANALGESIC 1890 MALIGNANT 06-04-2015 [facility] OF [facility] KIDNEY INC EXCEPT PELVIS V5811 ENCOUNTER 06-04-2015 [facility] [place] [facility] ANTINEOPLAS INC TIC CHEMOTHERAP Y V5869 LONG-TERM 05-15-2015 [facility] (CURRENT) PHYSICIANS USE OF GROUP OTHER MEDICATIONS 36179 OVERWEIGHT 04-23-2015 [facility] PHYSICIANS GROUP 4019 UNSPECIFIED 04-23-2015 [facility] ESSENTIAL PHYSICIANS HYPERTENSIO GROUP N 48996 DIVERTICULI 04-23-2015 [facility] TIS OF PHYSICIANS COLON GROUP 16912 DIVERTICULI 04-11-2015 [facility] TIS OF PHYSICIANS COLON WITH GROUP HEMORRHAGE 13745 ABDOMINAL 04-11-2015 [facility] PAIN, LEFT PHYSICIANS LOWER GROUP QUADRANT 83272 ABDOMINAL 04-11-2015 [facility] PAIN, PHYSICIANS PERIUMBILIC GROUP 69911 ABDOMINAL 04-11-2015 [facility] PAIN OTHER PHYSICIANS SPECIFIED GROUP SITE V1052 PERSONAL 04-11-2015 [facility] HISTORY OF PHYSICIANS MALIGNANT GROUP NEOPLASM OF KIDNEY 2559 UNSPECIFIED 04-06-2015 [place] DISORDER MEDICAL OF ADRENAL IMAGING ASS GLANDS 5180 PULMONARY 04-06-2015 [facility] COLLAPSE [facility]ICAL IM[facility]ING ASS 57374 UNSPEC 04-06-2015 [place] VENTRAL MEDICAL LUIS W/O IMAGING ASS MENTION OBST/GANGRE N 7856 ENLARGEMENT 04-06-2015 [place] OF LYMPH MEDICAL NODES IMAGING ASS 50789 ABDOMINAL 04-06-2015 [facility] PAIN, [facility] UNSPECIFIED INC SITE 54216 OTHER 04-06-2015 [place] NONSPECIFIC MEDICAL ABNORMAL IMAGING ASS FINDING OF LUNG FIELD 2724 OTHER AND 03-23-2015 [facility] UNSPECIFIED PHYSICIANS GROUP HYPERLIPIDE KEYON V4573 ACQUIRED 02-28-2015 [place] ABSENCE OF MEDICAL KIDNEY IMAGING ASS 2357 NEOPLASM 02-07-2015 [facility] P TRACH BRONCHUS&STEFANI NG 7231 CERVICALGIA 01-25-2015 [place] [facility] 7245 UNSPECIFIED 01-25-2015 [place] BACKACHE MEDICAL IMAGING ASS 08641 DIVERTICULO 01-24-2015 [facility] S[facility] COLON URGENT TREAT 5770 ACUTE 01-24-2015 [facility] PANCREATITI [facility] S URGENT TREAT 7242 LUMBAGO 01-24-2015 [facility] URGENT TREAT 89395 LEUKOCYTOSI 01-10-2015 [facility] S PHYSICIANS UNSPECIFIED GROUP 4011 ESSENTIAL 01-10-2015 [facility] HYPERTENSIO PHYSICIANS N, BENIGN GROUP 43986 COR 01-10-2015 [facility] ATHEROSLERO PHYSICIANS UNSPEC GROUP TYPE VESSEL [place]/NONA T 7880 RENAL COLIC 01-09-2015 [facility] 7881 DYSURIA 01-09-2015 [facility] 60220 SOLITARY 01-09-2015 [facility] PUL[facility] NODULE INC 4739 UNSPECIFIED 07-18-2014 [facility] 43560 PAIN IN 07-18-2014 [facility] JOINT, N EMERGENCY ANKLE AND PHYS FOOT 69128 TENOSYNOVIT 07-18-2014 [facility] IS OF FOOT N EMERGENCY AND ANKLE PHYS 5990 URINARY 06-16-2014 [facility] EMERG[facility]Y INFECTION PHYS SITE NOT SPECIFIED 7804 DIZZINESS 06-16-2014 [facility] AND N EMERGENCY GIDDINESS PHYS 30195 GENERALIZED 05-06-2014 HRASHAD RANDALL ANXIETY DISORDER 7248 OTHER 03-23-2014 HARSHAD RANDALL SYMPTOMS REFERABLE TO BACK 2374 NEOPLASM 02-21-2014 [facility] BHV OTH&UNSPEC ENDOCRN GLANDS 7840 HEADACHE 02-21-2014 [facility] 67680 DIARRHEA 02-21-2014 HARSHAD RANDALL 2359 NEOPLASM 02-16-2014 [...] s n re d AT 00 05 06 30 30 00 MD Ac EN 78 -2 -3 .0 00 L- ti OL 11 8- 0- 00 07 MA ve OL 07 20 20 48 RT 80 17 17 95 25 1 44 PH AR MG MA CY TA BL #5 ET 91 CY 68 05 06 30 30 00 MD Ac CL 64 -2 -3 .0 00 L- ti OB 50 8- 0- 00 07 MA ve EN 51 20 20 48 RT ZA 89 17 17 95 IA 0 45 PH IN AR E MA 10 CY MG #5 91 TA BL ET AL 16 05 06 30 30 00 MD Ac LO 71 -2 -3 .0 00 L- ti PU 40 8- 0- 00 07 MA ve RI 04 20 20 48 RT NO 10 17 17 95 L 7 43 PH 10 AR 0 MA MG CY TA #5 BL 91 ET ES 68 05 30 30 00 WA Ac CI 64 [...] 50 8- 0- 00 07 MA ve LA 54 20 20 48 RT N 55 17 17 95 HC 9 49 PH L AR 1, MA 00 CY 0 MG #5 91 TA BL ET LO 68 05 30 30 00 MD Ac SA 64 -2 -2 .0 00 L- ti RT 50 3- 3- 00 07 MA ve AN 40 20 20 48 RT 75 17 17 95 PO 4 48 PH TA AR SS MA IU CY M 25 #5 91 MG TA B OM 60 05 30 30 00 WA Ac EP 50 -2 -2 .0 00 L- ti RA 53 3- 3- 00 07 MA ve ZO 95 20 20 48 RT LE 20 17 [address] AR MA 20 CY MG #5 91 CA PS UL E GA 53 05 90 30 00 MD Ac BA 74 -2 -2 .0 00 L- ti PE 60 3- 3- 00 07 MA ve NT 10 20 20 48 RT IN 10 17 17 95 5 52 PH 10 AR 0 MA MG CY CA #5 PS 91 UL E OX 00 01 17 90 30 00 WA Ac YC 40 -2 -2 .0 00 L- ti OD 60 3- 3- 00 02 MA ve ON 52 20 20 24 RT E- 30 17 17 04 AC 1 42 PH ET AR AM MA IN CY OP HE #5 N 91 10 -3 25 IA 54 05 30 30 00 WA Ac AV 45 -1 -1 .0 00 L- ti 80 5- 6- 00 07 MA ve TA 92 20 20 45 RT TI 51 17 17 53 N 0 95 PH SO AR DI MA UM CY 40 #5 91 MG TA B AL 16 05 30 30 00 WA Ac LO 71 -0 -0 .0 00 L- ti PU 40 1- 2- 00 07 MA ve RI 04 20 20 48 RT NO 10 17 17 54 L 7 55 PH 10 AR 0 MA MG CY TA #5 BL 91 ET ME 68 05 06 60 30 00 MD Ac TF 64 -0 -0 .0 00 L- ti OR 50 1- 2- 00 07 MA ve LA 54 20 20 48 RT N 55 17 17 54 HC 9 56 PH L AR 1, MA 00 CY 0 MG #5 91 TA BL ET CY 68 05 30 30 00 MD Ac CL 64 -0 -0 .0 00 L- ti OB 50 1- 2- 00 07 MA ve EN 51 20 20 48 RT ZA 89 17 17 54 IA 0 57 PH IN AR E MA 10 CY MG #5 91 TA BL ET FL 60 05 06 16 30 00 MD Ac UT 43 -0 -0 .0 00 L- ti IC 20 1- 2- 00 07 MA ve 26 20 20 48 RT ON 41 17 17 54 E 5 88 PH IA AR OP MA CY 50 #5 MC 91 G SP RA Y ES 68 04 30 30 00 MD Ac CI 64 -2 -0 .0 00 L- ti TA 50 8- 2- 00 07 MA ve LO 52 20 20 41 RT IA 05 17 17 81 AM 4 82 PH AR 20 MA CY MG #5 TA 91 BL ET LI 54 04 30 30 00 MD Ac SI 45 -2 -0 .0 00 L- ti NO 80 8- 2- 00 07 MA ve IA 99 20 20 47 RT IL 91 17 17 87 0 87 PH 2. AR 5 MA MG CY TA #5 BL 91 ET AT 00 01 17 30 30 00 MD Ac EN 78 -0 -0 .0 00 L- ti OL 11 1- 2- 00 07 MA ve OL 07 20 20 48 RT 80 17 17 54 25 1 53 PH AR MG MA CY TA BL #5 ET 91 LO 68 04 05 30 30 00 WA Ac SA 64 -2 -2 .0 00 L- ti RT 50 4- 6- 00 07 MA ve AN 40 20 20 48 RT 75 17 17 41 PO 4 31 PH TA AR SS MA IU CY M 25 #5 91 MG TA B OX 00 04 05 90 30 00 MD Ac YC 40 -2 -2 .0 00 [...] #5 91 MG TA B ME 68 03 04 60 30 00 WA Ac TF 64 -2 -2 .0 00 L- ti OR 50 7- 8- 00 07 MA ve LA 54 20 20 47 RT N 55 17 17 87 HC 9 55 PH L AR 1, MA 00 CY 0 MG #5 91 TA BL ET OM 60 03 04 30 30 00 WA Ac EP 50 -2 -2 .0 00 L- ti RA 53 7- 8- 07 MA ve ZO 95 20 20 47 RT LE 20 17 [address] AR MA 20 CY MG #5 91 CA PS UL E AL 16 03 04 30 30 00 WA Ac LO 71 -2 -2 .0 00 L- ti PU 40 7- 8- 07 MA ve RI 04 20 20 47 RT NO 10 17 17 87 L 7 57 PH 10 AR 0 MA MG CY TA #5 BL 91 ET ES 68 03 04 30 30 00 WA Ac CI 64 -2 -2 .0 00 L- ti TA 50 7- 8- 07 MA ve LO 52 20 20 47 RT IA 05 17 17 87 AM 4 72 PH AR 20 MA CY MG #5 TA 91 BL ET AT 00 03 04 30 30 00 WA Ac EN 78 -2 -2 .0 00 L- ti OL 11 7- 8- 07 MA ve OL 07 20 20 [...] #5 91 TA BL ET FL 60 03 04 16 30 00 [...] N 91 10 -3 25 IA 54 03 04 30 30 00 WA Ac AV 45 -1 -1 .0 00 L- ti 80 4- 4- 00 07 MA ve TA 92 20 20 46 RT TI 51 17 17 08 N 0 72 PH SO AR DI MA UM CY 40 #5 91 MG TA B AL 16 02 30 30 00 WA [...] 91 CA PS UL E AT 00 10 17 30 30 00 WA Ac EN [...] 50 4- 1- 00 07 MA ve LA 54 20 20 47 RT N 55 [...] CY MG #5 TA 91 BL ET ON 53 02 03 10 31 00 [...] CY MG #5 91 TA BL ET ON 53 02 03 50 25 00 [...] #5 MC 91 G SP RA Y IA 00 02 03 30 30 00 WA Ac AV 09 -0 -1 .0 00 L- ti 37 6- 0- 00 07 MA ve TA 20 20 20 46 RT TI 29 17 17 08 N 8 72 PH SO AR DI MA UM CY 40 #5 91 MG TA B CY 68 01 02 30 30 00 [...] 50 3- 4- 00 07 MA ve LA 10 20 20 46 RT N 41 [...] 91 10 -3 25 IA 54 12 30 30 00 WA Ac [...] 20 7- 7- 00 07 MA ve LA 75 20 20 46 RT N 81 [...] G SP RA Y AL 16 12 30 30 00 WA [...] HE #5 N 91 10 -3 25 OX 00 02 02 0 90 30 WA 22 GA Ac YC 40 -0 -0 0. L- 33 IN ti OD 60 6- 6- 00 MA 92 EY ve ON 52 20 20 0 RT 1 E- 30 16 16 LA AC 1 PH CH ET AR AE AM MA L IN CY S OP # HE N 10 10 05 -3 91 25 IA 54 01 02 2 30 30 WA 73 GA Ac AV 45 -0 -0 0. L- 94 IN ti 80 6- 5- 00 MA 01 EY ve TA 92 20 20 0 RT 6 TI 51 16 16 LA N 0 PH CH SO AR AE DI MA L UM CY S # 40 10 MG 05 91 TA B OM 60 01 02 2 30 30 WA 73 GA Ac EP 50 -0 -0 0. L- 94 IN ti RA 53 6- 5- 00 MA 01 EY ve ZO 95 20 20 0 RT 3 LE 20 16 16 LA [address] AR AE MA L 20 CY S # MG 10 CA 05 PS 91 UL E ES 68 01 02 2 30 30 WA 73 GA Ac CI 64 -0 -0 0. L- 94 IN ti TA 50 6- 5- 00 MA 01 EY ve LO 44 20 20 0 RT 4 IA 77 16 16 LA AM 0 PH CH AR AE 20 MA L CY S MG # TA 10 BL 05 ET 91 AT 51 01 02 2 30 30 WA 73 GA Ac EN 07 -0 -0 0. L- 94 IN ti OL 90 6- 5- 00 MA 01 EY ve OL 75 20 20 0 RT 7 96 16 16 LA 25 3 PH CH AR AE MG MA L CY S TA # BL ET 10 05 91 GE 31 01 02 2 60 30 WA 73 GA Ac MF 72 -0 -0 0. L- 94 IN ti IB 20 6- 5- 00 MA 01 EY ve RO 22 20 20 0 RT 5 ZI 50 16 16 LA L 5 PH CH 60 AR AE 0 MA L MG CY S # TA BL 10 ET 05 91 AL 16 01 02 2 30 30 WA 73 GA Ac LO 71 -0 -0 0. L- 94 IN ti PU 40 6- 5- 00 MA 01 EY ve RI 04 20 20 0 RT 2 NO 10 16 16 LA L 7 PH CH 10 AR AE [...] 20 0 RT 1 45 16 16 LA UL 0 PH CH TR AR AE A MA L TE CY S ST # ST 10 RI 05 PS 91 Immunization Name Date Rout CVX Reac Dose [...] Procedure [place] [address] [place] [facility] ABDOMEN & 7 MEDICAL PELVIS IMAGING W/O ASS CONTRAST MATERIAL RADEX 92954 [facility] FOOT [facility] COMPLETE INC INC MINIMUM 3 VIEWS ECHO 10826 [facility] TTHRC R-T 7 [facility] 2D INC INC W/WOM-MOD E COMPL SPEC&[place] [address] [facility] ABDOMEN & 7 [facility] PELVIS INC INC W/CONTRAS T MATERIAL CREATININ 95515 [facility] E BLOOD 7 [facility] INC INC COLLECTIO 99270 [facility] N VENOUS 7 [facility] BLOOD INC INC VENIPUNCT URE LOCM Q9967 [facility] AMB[facility] [phone] [facility] Y SURGERY MG/ML INC CENTER, IODINE L CONCENTRA TION PER ML CT THORAX 59369 [facility] 7 [facility] W/[place] [address] [facility] UREA 7 [facility] NITROGEN INC INC QUANTITAT MENG CONTINUOU E0601 G[facility] TRINH S 7 HOME [...] AIRWAY EQUIPME EQUIPME PRESSURE DEVICE DRUG TEST 80913 [facility] PRSMV 7 [facility] QUAL DIR INC INC OPTICAL OBS PER DAY CONTINUOU E0601 GAYATHRI Kwon 7 HOME HOME POSITIVE MEDICAL MEDICAL AIRWAY EQUIPME EQUIPME PRESSURE DEVICE DRUG TEST 12503 [facility] PRSMV 7 [facility] QUAL DIR INC INC OPTICAL OBS PER DAY CONTINUOU E0601 GAYATHRI Kwon 7 HOME HOME POSITIVE MEDICAL MEDICAL AIRWAY EQUIPME EQUIPME PRESSURE DEVICE COMPREHEN 27843 [facility] SIVE 7 [facility] METABOLIC INC INC PANEL HEMOGLOBI 23489 [facility] N 7 [facility] GLYCOSYLA INC INC ERICA A1C COLLECTIO 15675 [facility] N VENOUS 7 [facility] BLOOD INC INC VENIPUNCT URE CONTINUOU E0601 GAYATHRI Kwon 7 HOME HOME POSITIVE MEDICAL MEDICAL AIRWAY EQUIPME EQUIPME PRESSURE DEVICE [facility] [address] [facility] 7 PHYSICIAN DAY S GROUP MANAGEMEN T 30 MIN/< SBSQ 06698 [facility] 7 PHYSICIAN CARE/DAY [place] [address] [place] [address] [facility] ABDOMEN & 7 MEDICAL PELVIS IMAGING W/O ASS CONTRAST MATERIAL FINAL G9551 [facility]ER REPR ABD 7 MEDICAL IMAG STS IMAGING W/O ASS INCIDNT FND LES NTD: FINAL G9638 [facility] REPORTS 7 MEDICAL W/O DOC IMAGING 1/MORE ASS DOSE REDUCTION TECH INITIAL 76826 [facility] 7 PHYSICIAN CARE/DAY [place] [address] [place] [address] [facility] KANA ABDOMEN & 7 MEDICAL PELVIS IMAGING W/O ASS CONTRAST MATERIAL CONTINUOU E0601 GAYATHRI Kwon 7 HOME HOME POSITIVE MEDICAL MEDICAL AIRWAY EQUIPME EQUIPME PRESSURE DEVICE DRUG TEST G0481 [facility] DEFINITV [address] ID INC INC METH P DAY 8-14 DRUG CL DRUG TST G0477 [facility] PRESUMP;C 6 [facility] PBL [place] [address] [facility] BRADFORDANNAKE ABDOMEN & 6 MEDICAL PELVIS IMAGING W/O ASS CONTRAST MATERIAL POLYSOM 42108 [facility] PAVEZ 6/>YRS 6 PHYSICIAN SLEEP S GROUP W/CPAP 4/> ADDL DEMETRIUS ATTND CONTINUOU E0601 GAYATHRI TRINH S 6 HOME HOME POSITIVE MEDICAL MEDICAL AIRWAY EQUIPME EQUIPME PRESSURE DEVICE DRUG TEST G0481 [facility] DEFINITV [address] [facility] [address] ID INC INC METH P DAY 8-14 DRUG CL OPHTH 34489 D[facility]NI DANNI MEDICAL 6 AYAH AYAH XM&EVAL COMPRE NEW PT 1/> VST TUBING A7037 GAYATHRI TRINH USED WITH 6 HOME HOME POSITIVE MEDICAL MEDICAL AIRWAY EQUIPME EQUIPME PRESSURE DEVICE CONTINUOU E0601 GAYATHRI GAYATHRI S 6 HOME [...] EQUIPME ARWAY PRESSURE DEVICE HUMDIFIR E0562 GAYATHRI RAMONRELL HEATED 6 HOME HOME USED MEDICAL MEDICAL W/POS EQUIPME EQUIPME ARWAY PRESSURE DEVICE HEADGEAR A7035 GAYATHRI TRINH USED 6 HOME HOME W/POSITIV MEDICAL MEDICAL E AIRWAY EQUIPME EQUIPME PRESSURE DEVICE DRUG TEST G0481 [facility] DEFINITV [address] ID INC INC METH P DAY 8 DRUG CL SLEEP STD 38492 [facility] AIRFLOW 6 [facility] HRT INC INC RATE&O2 [place] [address] [facility] FARHAD ADJUVANTE 6 PHYSICIAN JASMYNE D VACCINE S GROUP FOR INTRAMUSC ULAR USE DRUG TST G0477 [facility] PRESUMP;C 6 [facility] PBL BEING INC INC READ DC OPT OBV ONLY IM ADM 26680 [facility] FARHAD PRQ ID 6 PHYSICIAN JASMYNE SUBQ/IM S GROUP NJXS 1 VACCINE BONE 64889 [facility] &/JOINT 6 [facility] IMAGING INC INC WHOLE BODY TECHNETIU A9503 [facility] Arthur TC-[id number] 6 [facility] MEDRONATE INC INC DX UP TO 30 MCI COMPREHEN 02383 [facility] SIVE 6 [facility] METABOLIC INC INC PANEL COLLECTIO 73591 [facility] N VENOUS 6 [facility] BLOOD INC INC VENIPUNCT URE BLOOD 92923 [facility] COUNT 6 [facility] COMPLETE INC INC AUTO&AUTO DIFRNTL WBC DRUG TEST G0481 [facility] DEFINITV [address] ID INC INC METH P DAY 8-14 DRUG CL DRUG TST G0477 [facility] PRESUMP;C 6 [facility] PBL BEING INC INC READ DC OPT OBV ONLY COMPREHEN 36295 [facility] SIVE 6 [facility] [place] [address] [place] [facility] ALL THORACIC 6 MEDICAL SPINE W/[place] [address] [place] [facility] ALL ABDOMEN & 6 MEDICAL PELVIS IMAGING W/O ASS CONTRAST MATERIAL DRUG TST G0477 [facility] PRESUMP;C 6 [facility] PBL BEING INC INC READ DC OPT OBV ONLY THERAPEUT [address]18[address] [facility] [address] 6 PHYSICIAN JASMYNE PROPHYLAC S GROUP TIC/DX INJECTION SUBQ/IM INJECTION J1100 [facility] 6 PHYSICIAN JASMYNE DEXAMETHO S GROUP SONE SODIUM PHOSPHATE 1 MG DRUG TEST G0481 [facility] DEFINITV [address] ID INC INC METH P DAY 8-14 DRUG CL DRUG TEST G0481 [facility] DEFINITV [address] [address] [address] ID INC INC METH P DAY 8-14 DRUG CL DRUG TST G0477 [facility] PRESUMP;C 6 [facility] PBL BEING INC INC READ DC OPT OBV ONLY BLOOD 35750 [facility] COUNT 6 [facility] COMPLETE INC INC AUTO&AUTO DIFRNTL WBC UNCLASSIF J3490 [facility] IED DRUGS 6 [facility] INC INC LOCM Q9967 [facility] [phone] [facility] MG/ML INC INC IODINE CONCENTRA TION PER ML COMPREHEN 42052 [facility] SIVE 6 [facility] MET[facility]OLIC INC [facility] PANEL CT THORAX [address]191 [facility] 6 MEDICAL W/[place] [address] EL[facility] THYROID 6 [facility] ST[place]ULAT[place] [address] [facility] UREA 6 [facility] NITROGEN INC INC QUANTITAT MENG COLLECTIO 00441 [facility] N VENOUS 6 [facility] BLOOD INC INC VENIPUNCT URE CREATININ 84256 [facility] E BLOOD 6 [facility] INC INC UNCLASSIF J3490 [facility] IED DRUGS 6 [place] [address] [facility] ABDOMEN & 6 [facility] PELVIS INC INC W/CONTRAS T MATERIAL LOC Q9967 EL[facility] [phone] [facility] MG/ML INC INC IODINE CONCENTRA TION PER ML CT THORAX 73154 [facility] 6 [facility] W/CONTRAS INC INC T MATERIAL COMPREHEN 90995 [facility] SIVE 6 [facility] METABOLIC INC INC PANEL BLOOD 96976 [facility] COUNT 6 [facility] COMPLETE INC INC AUTO&AUTO DIFRNTL WBC BLOOD 82158 [facility] COUNT 6 [facility] COMPLETE INC INC AUTO&[place] [address] [facility] INFUSION 6 [facility] THERAPY/P INC INC ROPHYLAXI S /DX 1ST TO 1 HR INJECTION J9299 [facility] NIVOLUMAB INC INC 1 MG BLOOD 11039 [facility] COUNT 6 [facility] COMPLETE INC INC AUTO&AUTO DIFRNTL WBC [place] 49997 ELENO [facility]ANSEN ADMN IV 6 [facility] NFS TQ UP INC INC 1 HR / SBST/DRUG BASIC 92229 EL[facility] METABOLIC 6 [facility] PANEL INC INC CALCIUM TOTAL CT THORAX [address]100 [facility] 5 MEDICAL W/[place] [address] [facility] ALL ABDOMEN & 5 MEDICAL PELVIS IMAGING W/CONTRAS ASS T MATERIAL [place] 67645 ELENO JOHANSEN ADMN IV 5 MEM [facility] NFS TQ UP INC INC 1 HR SBST/DRUG BLOOD 20050 [facility]ANSEN COUNT 5 [facility] COMPLETE INC INC AUTO&AUTO DIFRNTL WBC COMPREHEN 00128 [facility] SIVE 5 [facility] METABOLIC INC INC PANEL CHEMOTX 81061 ELENO JOHANSEN ADMN IV 5 [facility] NFS TQ UP INC INC 1 HR SBST/DRUG INJECTION C9453 [facility] 5 [facility] NIVOLUMAB INC INC 1 MG BLOOD 92744 [facility]OHANSEN COUNT 5 [facility] COMPLETE INC INC AUTO&AUTO DIFRNTL WBC IIV3 27985 [facility] 5 PHYSICIAN JASMYNE SPLIT S GROUP VIRUS 0.5 ML DOSAGE IM USE IM ADM 64033 [facility] PRQ ID 5 PHYSICIAN JASMYNE SUBQ/IM S GROUP NJXS 1 VACCINE CHEMOTX 51482 EL[facility] JOHANSEN ADMN IV 5 [facility] NFS TQ UP INC INC 1 HR SBST/DRUG BLOOD 49746 [facility] JOHANSEN COUNT 5 [facility] COMPLETE INC INC AUTO&AUTO DIFRNTL WBC COMPREHEN 76171 [facility] JOHANSEN SIVE 5 [facility] METABOLIC INC INC PANEL CT THORAX 16051 [facility]OHANSEN 5 [facility] W/CONTRAS INC INC T MATERIAL LOCM Q9967 ELENO JOHANSEN [phone] 5 [facility] MG/ML INC [place] [address] EL[facility] JOHANSEN ABDOMEN 5 [facility] W/CONTRAS INC INC T MATERIAL COLLECTIO 03755 EL[facility] JOHANSEN N VENOUS 5 [facility] BLOOD INC INC VENIPUNCT URE CHEMOTX 58578 [place]MN IV 5 [facility] NFS TQ UP INC INC 1 HR SBST/DRUG BLOOD 49316 [facility] TAYLORON COUNT 5 [facility] COMPLETE INC INC AUTO&AUTO DIFRNTL WBC BLOOD 55646 [facility] JOHANSEN COUNT 5 [facility] COMPLETE INC INC AUTO&AUTO DIFRNTL WBC CHEMOTX 35433 ELENO TAYLORON ADMN IV 5 [facility] NFS TQ UP INC INC 1 HR SBST/DRUG COMPREHEN 02953 [facility] JOHANSEN SIVE 5 [facility] METABOLIC INC INC PANEL CHEMOTX 87090 ELENO TAYLORON ADMN IV 5 [facility] NFS TQ UP INC INC 1 HR SBST/DRUG BLOOD 19451 [facility] JOHANSEN COUNT 5 [facility] COMPLETE INC INC AUTO&AUTO DIFRNTL WBC BLOOD 57352 ELENOIVONNE JOHANSEN COUNT 5 [facility] COMPLETE INC INC AUTO&AUTO DIFRNTL WBC CHEMOTHER 77041 ELENO ELENO APY ADMN 5 [facility] IV INC INC INFUSION TQ EA HR COMPREHEN 56146 [facility] JOHANSEN SIVE 5 [facility] METABOLIC INC INC PANEL CHEMOTX 35303 ELENOIVONNE TAYLORON ADMN IV 5 [facility] NFS TQ UP INC INC 1 HR SBST/DRUG COLLECTIO 90965 EL[facility] JOHANSEN N VENOUS 5 [facility] BLOOD INC INC VENIPUNCT URE LOCM Q9967 EL[facility] JOHANSEN [phone] 5 [facility] MG/ML INC INC IODINE CONCENTRA TION PER ML CT THORAX 52379 [facility]ANS[facility] 5 [facility] W/[place] [address] ELENO JOHANSEN ABDOMEN & 5 [facility] PELVIS INC INC W/CONTRAS T MATERIAL BLOOD 52424 [facility] JOHANSEN COUNT 5 [facility] COMPLETE INC INC AUTO&[place] [address] ELENO JOHANSEN LIPASE 5 [facility] INC INC COMPREHEN 61346 [facility] JOHANSEN SIVE 5 [facility] METABOLIC INC INC PANEL COLLECTIO 45513 ELENO JOHANSEN N VENOUS 5 [facility] [place] [address] ELENO JOHANSEN AMYLASE 5 [facility] INC INC COMPREHEN 89591 ELENO JOHANSEN SIVE 5 [facility] METABOLIC INC INC PANEL COLLECTIO 69258 ELENO JOHANSEN N VENOUS 5 [facility] BLOOD INC INC VENIPUNCT URE BLOOD 26833 [facility] JOHANSEN COUNT 5 [facility] COMPLETE INC INC AUTO&[place] [address] ELENO JOHANSEN ERYTHROPO 5 [facility] [place] [address] [place] ABDOMEN & 5 MEDICAL SHELIA PELVIS IMAGING W/O ASS CONTRAST MATERIAL HOSPITAL 59882 [facility] DISCHARGE 5 CARE R H DAY ASSOCIATE MANAGEMEN S T 30 MIN/< SBSQ 26313 [place] [address] CARE R H CARE/DAY ASSOCIATE 15 S MINUTES INITIAL 66090 [facility] 5 PHYSICIAN CONSULT S GROUP NEW/ESTAB PT 55 MIN INITIAL 60861 [place] [address] CARE R H CARE/DAY ASSOCI[place] [address] [place] [address] [facility] ALL ABDOMEN & 5 MEDICAL PELVIS IMAGING W/O ASS CONTRAST MATERIAL RADEX 94835 ELENO TAYLORON SPINE 5 [facility] LUMBOSACR INC INC AL MINIMUM 4 VIEWS RADEX 05696 ELENO ELENO SPINE 5 [facility] CERVICAL INC INC 4 OR 5 VIEWS HOSPITAL 58654 [facility] DISCHARGE 5 CARE R H DAY ASSOCIATE MANAGEMEN S T 30 MIN/< SBSQ 25716 [facility] 5 PHYSICIAN CARE/DAY S GROUP [address] THORAX [address] [place] W/O 5 MEDICAL SHELIA CONTRAST IMAGING MATERIAL ASS INITIAL 19206 [facility] 5 CARE R H CARE/DAY ASSOCIATE 50 S MINUTES INITIAL 61847 [facility] SRINIVAS TOD INPATIENT 5 PHYSICIAN CONSULT S GROUP NEW/ESTAB [place] [address] [place] [address] [place] DANA ABDOMEN & 5 MEDICAL SHELIA PELVIS IMAGING W/CONTRAS ASS T MATERIAL ECG 56197 [facility] ROUTINE 4 JOSE F IMT ECG EMERGENCY W/LEAST PHYS 12 LDS I&R ONLY URINLS 45069 HARSHAD RANDALL HARSHAD RANDALL DIP 4 STICK/TAB LET REAGNT NON-AUTO MICRSCPY METANEPHR 38865 [facility] 4 DIAGNOSTI DIAGNOSTI CS CS LIPID 58486 HARSH[facility] [employer] RANDALL PANEL 4 LOCM Q9967 ELENO JOHANSEN [phone] 4 [facility] MG/ML INC INC IODINE CONCENTRA TION PER ML CT THORAX 55900 [facility] JOHANSEN 4 [facility] W/[place] [address] DANA DANA ABDOMEN & 4 SHELIA SHELIA PELVIS W/O CONTRAST MATERIAL Encounters Encounter Start End Date Code Location Performer Type Date OFFICE 30076 [facility] LISETTE VALERA 7 7 PHYSICIAN A T NEW 60 S GROUP MINUTES EMERGENCY 42857 DANAY LLAMAS DEPT 7 7 PHYSICIAN VISIT S, PLLC HIGH SEVERITY& THREAT [facility] - 7 7 [facility] OUTPATIEN [facility] - 7 7 [facility] OUTPATIEN [facility] T OFFICE 75128 [facility] KENYONEN 7 7 PHYSICIAN T VISIT S GROUP 15 MINUTES OFFICE 45470 [facility] OUT[facility] 7 7 PHYSICIAN T VISIT S GROUP 25 MINUTES [facility] - 7 7 [facility] - 7 7 [facility] T OFFICE 08238 [facility] OUTPATIEN 7 7 PHYSICIAN T VISIT S GROUP 25 MINUTES HOSPITAL [facility] - 7 7 [facility] OUTPATIEN INC T OFFICE 05041 [facility] OUTPATIEN 7 7 PHYSICIAN T VISIT S GROUP 25 MINUTES OFFICE 64213 [facility] OUTPATIEN 7 7 PHYSICIAN T VISIT S GROUP 25 MINUTES HOSPITAL [facility] - 7 7 [facility] INPATIENT INC EMERGENCY 79995 [facility] DEPT 7 7 PHYSICIAN VISIT S, [facility] HIGH SEVERITY& THREAT ON LICENSE OF [facility] OFFICE 79204 EL[facility] SMITH OUTPATIEN 6 6 [facility] 5 HOSPITAL MINUTES [facility] EL[facility] - 6 6 [facility] OUTPATIEN [facility] T OFF[facility] 46394 [facility] OUTPATIEN 6 6 PHYSICIAN T VISIT S GROUP 15 MINUTES EMERGENCY [facility]24 [facility] 6 6 PHYSICIAN VISIT S, [facility] HIGH SEVERITY& THREAT [facility] - 6 6 [facility]PATIEN [facility] - 6 6 [facility] OUTPATIEN INC T OFFICE 48625 [facility] OUTPATIEN 6 6 PHYSICIAN JASMYNE T VISIT S GROUP 15 MINUTES HOSPITAL [facility] - 6 6 [facility]IEN [facility] - 6 6 [facility] OUTPATIEN INC T OFFICE 73864 [facility] OUTPATIEN 6 6 PHYSICIAN JASMYNE T VISIT S GROUP 15 MINUTES HOSPITAL [facility] - 6 6 [facility] OUTPATIEN INC T OFFICE 73317 [facility] SMITH OUTPATIEN 6 6 [facility] 10 P [facility] - 6 6 [facility] OUTPATIEN INC T OFFICE 40581 [facility] SMITH OUTPATIEN 6 6 [facility] 15 P MINUTES HOSPITAL [facility] - 6 6 [facility] OUTPATIEN INC T OFFICE 35213 [facility] OUTPATIEN 6 6 PHYSICIAN JASMYNE T VISIT S GROUP 15 MINUTES HOSPITAL [facility] - 6 6 [facility] OUTPATIEN INC [facility] - 6 6 [facility] OUTPATIEN INC T OFFICE 01333 [facility] OUTPATIEN 6 6 PHYSICIAN JASMYNE T VISIT 5 S GROUP MINUTES EMERGENCY 28151 [facility] DEPT 6 6 PHYSICIAN JASMYNE VISIT S, [facility] HIGH SEVERITY& THREAT [facility] - 6 6 [facility] OUTPATIEN INC T OFFICE 06498 [facility] OUTPATIEN 6 6 PHYSICIAN JASMYNE T VISIT S GROUP 15 MINUTES HOSPITAL [facility] - 6 6 [facility] OUTPATIEN INC T OFFICE 76078 [facility] OUTPATIEN 6 6 PHYSICIAN JASMYNE T VISIT S GROUP 10 MINUTES [facility]OSPITAL [facility] - 6 6 [facility] OUTPATIEN INC T OFFICE 51261 [facility] OUTPATIEN 6 6 PHYSICIAN JASMYNE T VISIT S GROUP 15 MINUTES OFFICE 62627 [facility] OUTPATIEN 6 6 PHYSICIAN JASMYNE T VISIT S GROUP 10 MINUTES OFFICE 76243 [facility] SMITH OUTPATIEN 6 6 [facility] 10 P MINUTES HOSPITAL [facility] - 6 6 [facility] OUTPATIEN INC T OFFICE 78691 [facility] OUTPATIEN 6 6 PHYSICIAN JASMYNE T VISIT S GROUP 10 MINUTES [facility] - 6 6 [facility] OUTPATIEN INC [facility] - 6 6 [facility] OUTPATIEN INC T OFFICE 05307 [facility] SMITH OUTPATIEN 6 6 [facility] VISIT HOSPITAL 10 P MINUTES HOSPITAL [facility] - 6 6 [facility] OUTPATIEN INC T OFF[facility] 31180 [facility] OUTPATIEN 6 6 PHYSICIAN JASMYNE T VISIT S GROUP 10 MINUTES [facility]OSPITAL [facility] - 6 6 [facility] OUTPATIEN INC T OFFICE 22664 [facility] SMITH OUTPATIEN 6 6 [facility] T [facility] 10 P MINUTES OFFICE 45305 [facility] SMITH OUTPATIEN 6 6 [facility] T [facility] 10 P MINUTES OFFICE 43478 [facility] OUTPATIEN 6 6 PHYSICIAN JASMYNE T VISIT S GROUP 15 MINUTES [facility]OSP[facility] - 6 6 [facility] OUTPATIEN INC T OFFICE 05318 [facility] SMITH OUTPATIEN 5 5 [facility] 10 P MINUTES OFFICE 35985 [facility] OUTPAT[facility] 5 5 PHYSICIAN JASMYNE T VISIT S GROUP 10 MINUTES [facility] - 5 5 [facility] OUTPATIEN INC T OFFICE 55044 [facility] SMITH OUTPATIEN 5 5 [facility] T [facility] 5 HOSPITAL MINUTES [facility] - 5 5 [facility] OUTPATIEN [facility] [place] - 5 5 [facility] OUTPATIEN INC T OFFICE 43407 [facility] OUTPATIEN 5 5 PHYSICIAN JASMYNE T VISIT S GROUP 10 MINUTES OFFICE 90298 [facility] SMITH OUTPATIEN 5 5 [facility] T [facility] 10 P MINUTES [facility] - 5 5 [facility] OUTPATIEN INC T [facility] - 5 5 [facility] OUTPATIEN INC T [facility] - 5 5 [facility] OUTPATIEN INC T OFFICE 34298 [facility] OUTPATIEN 5 5 PHYSICIAN JASMYNE T VISIT S GROUP 25 MINUTES [facility] - 5 5 [facility] OUTPATIEN INC T OFFICE 45523 [facility] SMITH OUTPATIEN 5 5 [facility] T VISIT 5 HOSPITAL MINUTES P [facility] - 5 5 [facility] OUTPATIEN INC T OFFICE 82133 [facility] OUTPATIEN 5 5 PHYSICIAN JASMYNE T VISIT S GROUP 10 MINUTES [facility] - 5 5 [facility] OUTPATIEN INC T OFFICE 56895 [facility] SMITH OUTPATIEN 5 5 [facility] T VISIT 5 HOSPITAL MINUTES P OFFICE 49937 [facility] OUTPATIEN 5 5 PHYSICIAN JASMYNE T VISIT S GROUP 15 MINUTES OFFICE 86909 [facility] SMITH OUTPATIEN 5 5 [facility] T VISIT HOSPITAL 10 P MINUTES OFFICE 95899 [facility] TOD OUTPATIEN 5 5 PHYSICIAN T VISIT S GROUP 15 MINUTES [facility] - 5 5 [facility] OUTPATIEN INC T OFFICE 51459 [facility] TOD OUTPATIEN 5 5 PHYSICIAN T VISIT S GROUP 15 MINUTES [facility] - 5 5 [facility] OUTPATIEN INC T OFFICE 85271 [facility] OUTPATIEN 5 5 PHYSICIAN JASMYNE T VISIT S GROUP 15 MINUTES OFFICE 93823 [facility] SMITH OUTPATIEN 5 5 [facility] T VISIT HOSPITAL 10 P MINUTES [facility] - 5 5 [facility]PATIEN INC T [facility] 02[facility] PHYSICIAN JASMYNE VISIT S, [facility] HIGH SEVERITY& THREAT FUNJ OFFICE 21911 [facility] TOD OUTPATIEN 5 5 PHYSICIAN T VISIT S GROUP 15 MINUTES OFFICE 97296 [facility] OUTPATIEN 5 5 [facility] 45 HOSPITAL MINUTES P EMERGENCY 03331 [facility] DEPT 5 5 PHYSICIAN JASMYNE VISIT S, [facility] HIGH SEVERITY& THREAT FUN [facility]OSP[facility] [place] - 5 5 [facility] OUTPATIEN INC T OFFICE 95380 [facility] OUTPATIEN 5 5 [facility] T VISIT URGENT 25 TREAT MINUTES OFFICE 61874 [facility] TOD OUTPATIEN 5 5 PHYSICIAN T VISIT S GROUP 15 MINUTES [facility]OSP[facility] [place] - 5 5 [facility] INPATIENT INC EMERGENCY 14089 [facility] [facility] 5 5 [facility] T VISIT P HIGH/URGE NT SEVERITY EMERGENCY 91414 [facility] 4 4 JOSE [facility] EMERGENCY T VISIT PHYS MODERATE SEVERITY EMERGENCY 12718 [facility] FRANCIS 4 4 JOSE F [facility] EMERGENCY T VISIT PHYS HIGH/URGE NT SEVERITY OFFICE 36387 [facility] RANDALL [facility] R[facility] OUTPATIEN 4 4 T VISIT 15 MINUTES OFFICE 73150 HARSHAD RANDALL [facility]SH[facility] RANDALL OUTPATIEN 4 4 T VISIT 15 MINUTES OFFICE 77400 HARSHAD RANDALL [facility] OUTPATIEN 4 4 T VISIT 25 MINUTES [facility]OSP[facility] - 4 4 [facility] OUTPATIEN INC T OFFICE 71250 HARSHAD RANDALL HARSH[facility] RANDALL OUTPATIEN 4 4 T VISIT 25 MINUTES EMERGENCY 74231 [facility] DEPT 4 4 VINCE CL[facility]KE VISIT HIGH SEVERITY& THREAT FUN EMERGENCY 69724 [facility]EREIR[facility] 4 4 [facility] VIS[facility] MODERATE SEVERITY
--- OUTSIDE RECORDS SUMMARY | 2017-06-29 15:56 | External Medical Summary Rpt | CCD ---
Author Author , VITO Organization [facility] Address Unknown Phone Care Team Providers Care Reading Specialist Name Role Phone ALFARIS MOH, ALFARIS Unavailable Unavailable [facility] Un[facility] WILL BRO, WILL Unavailable Unavailable BRO BEINEKE, BEINEKE Unavailable Unavailable ROGER, ROGER Unavailable Unavailable ROGER ALL, ROGER ALL Unavailable Unavailable DANNI AYAH, DANIN Unavailable Unavailable AYAH DANNI AYAH, DANNI Unavailable Unavailable AYAH DANA SHELIA, Unavailable Unavailable DANA SHELIA DANA SHELIA, Unavailable Unavailable DANA SHELIA SMITH, SMITH Unavailable Unavailable [facility], Unavailable Unavailable [facility] FARHAD, FARHAD Unavailable Unavailable FARHAD JASMYNE, FARHAD Unavailable Unavailable JASMYNE [facility] Unavailable Unavailable INC, [facility] Unavailable Unavailable HOSPITAL P, [facility] P [facility], Unavailable Unavailable [facility] WHIPPLE, WHIPPLE Unavailable Unavailable JABARI NAN, JABARI Unavailable Unavailable NAN FRANCIS IMT, FRANCIS Unavailable Unavailable IMT [facility] Unavailable Unavailable [facility], [facility] HARSHAD RANDALL, HARSHAD RANDALL Unavailable Unavailable HARSHAD RANDALL, HARSHAD RANDALL Unavailable Unavailable [facility] Unavailable Unavailable [facility], [facility], Unavailable Unavailable [facility], Unavailable [facility]available [facility], [facility] PAVEZ, PAVEZ Unavailable Unavailable [facility], Unavailable Unavailable [facility], Unavailable Unavailable [facility] SRINIVAS TOD, SRINIVAS TOD Unavailable Unavailable ZENAIDA RANDALL, EZNAIDA RANDALL Unavailable Unavailable ZENAIDA RANDALL, ZENAIDA RANDALL Unavailable Unavailable [facility] Unavailable Unavailable [facility], [facility] Unavailable Unavailable [facility], [facility], Unavailable Unavailable [facility] # Unavailable Unavailable [id number], [facility] # [id number] Purpose Continuity of Care Document - 02-01-2014 through 2016 Problems Code Diagnosis DOS Provider Status C649 MALIGNANT 05-06-2017 [facility] NEOPLASM PHYSICIANS UNS KIDNEY GROUP EXCEPT RENL PELVIS E785 HYPERLIPIDE 05-06-2017 [facility] [place] PHYSICIANS UNSPECIFIED GROUP R079 CHEST PAIN 05-06-2017 [facility] UNSPECIFIED PHYSICIANS GROUP Z8679 PERSONAL 05-06-2017 [facility] HISTORY OT PHYSICIANS DISEASES GROUP CIRCULATORY SYSTEM C641 MALIGNANT 04-25-2017 [facility] NEOPLASM RT PHYSICIANS, KIDNEY PLLC EXCEPT RENAL PELVIS C7901 SECONDARY 04-25-2017 [facility] MALIG PHYSICIANS, NEOPLASM RT PLLC KIDNEY & RENAL PELV R1032 LEFT LOWER 04-25-2017 [facility] QU[facility]RANT PHYSICIANS, PAIN PLLC R1084 GENERALIZED 04-25-2017 [place] ABDOMINAL MEDICAL PAIN IMAGING ASS R160 HEPATOMEGAL 04-25-2017 [place] Y NOT MEDICAL ELSEWHERE IMAGING ASS CLASSIFIED [id number] PAIN IN 03-19-2017 [place] LEFT FOOT MEDICAL IMAGING ASS R011 CARDIAC 03-19-2017 [facility] UNSPECIFIED INC C7800 SECONDARY 02-06-2017 [facility] NEOPLASM OF INC UNSPECIFIED LUNG K5730 DIVERTICULO 02-06-2017 [place] SIS LG MEDICAL INTEST W/O IMAGING ASS PERF/ABSC W/O BLEED R590 LOCALIZED 02-06-2017 [place] ENLARGED MEDICAL LYMPH NODES IMAGING ASS R911 SOLITARY 02-06-2017 [place] PULMONARY MEDICAL NODULE IMAGING ASS Z0389 ENCOUNTER 02-06-2017 [facility]BS[facility]TH [facility] SUSPCT DZ & INC COND RULED OUT E119 TYPE 2 02-03-2017 [facility] DIABETES PHYSICIANS MELLITUS GROUP WITHOUT COMPLICATIO NS I10 ESSENTIAL 02-03-2017 [facility] PRIMARY PHYSICIANS HYPERTENSIO GROUP N [id number] OTHER LONG 02-03-2017 [facility] TERM PHYSICIANS CURRENT GROUP DRUG THERAPY G4733 OBSTRUCTIVE 01-19-2017 [facility]ULT [facility]IC EQUIPME J40 BRONCHITIS 10-06-2016 [facility] NOT PHYSICIANS SPECIFIED GROUP ACUTE OR CHRONIC C7989 SECONDARY 09-22-2016 [facility] NEOPLASM INC OTH SPECIFIED SITES E118 TYPE 2 09-22-2016 [facility] DIABETES PHYSICIANS MELLITUS GROUP W/UNS COMPLICATIO NS E871 HYPO-OSMOLA 09-22-2016 [facility] LITY AND PHYSICIANS HYPONATREMI GROUP A K8590 ACUTE 09-22-2016 [facility] PANCREATITI PHYSICIANS S WO GROUP NECROSIS/IN FECTION UNSPEC Z720 TOBACCO USE 09-22-2016 [facility] PHYSICIANS GROUP K8580 OTHER ACUTE 09-21-2016 [facility], PANCREATITI [facility] S WO NECROSIS/IN FECTION R109 UNSPECIFIED 09-21-2016 [place] ABDOMINAL MEDICAL PAIN IMAGING ASS R110 NAUSEA 09-21-2016 [place] MEDICAL IMAGING ASS B79844 PERSONAL 09-21-2016 [place] HISTORY MEDICAL OTHER IMAGING ASS MALIGNANT NEOPLASM KIDNEY K5731 DIVERTICULO 09-03-2016 [facility] LG PHYSICIANS, INTEST W/O PLLC PERF/ABSC W/BLEED R1031 RIGHT LOWER 09-03-2016 [place] QUADRANT MEDICAL PAIN IMAGING ASS G4713 RECURRENT 08-27-2016 [facility] HYPERSOMNIA PHYSICIANS GROUP J984 OTHER 08-27-2016 [facility] DISORDERS PHYSICIANS OF LUNG GROUP H527 UNSPECIFIED 07-28-2016 [facility] AYAH DISORDER OF REFRACTION Z23 ENCOUNTER 06-16-2016 [facility] FOR PHYSICIANS IMMUNIZATIO GROUP N M546 PAIN IN 05-13-2016 [place] THORACIC MEDICAL SPINE IMAGING ASS Z905 ACQUIRED 05-13-2016 [place] ABSENCE OF MEDICAL KIDNEY IMAGING ASS G4730 SLEEP APNEA 04-30-2016 [facility] PHYSICIANS UNSPECIFIED GROUP M7711 LATERAL 04-30-2016 [facility] EPICONDYLIT PHYSICIANS IS RIGHT GROUP ELBOW E875 HYPERKALEMI 04-24-2016 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 SEASONAL PHYSICIANS ALLERGIC GROUP RHINITIS R918 OTHER 02-14-2016 [place] NONSPECIFIC MEDICAL ABNORMAL IMAGING ASS FINDING OF LUNG FIELD R739 HYPERGLYCEM 10-19-2015 [facility] IA PHYSICIANS UNSPECIFIED GROUP Z5111 ENCOUNTER 10-10-2015 [facility] P TIC CHEMOTHERAP Y Z5181 ENCOUNTER 07-16-2015 [facility] THERAPEUTIC [facility] DRUG LEVEL MONITORING N281 CYST OF 06-29-2015 [place] KIDNEY MEDICAL ACQUIRED IMAGING ASS F16078 SHELTER 06-14-2015 [facility] CURRENT USE PHYSICIANS OF OPIATE GROUP ANALGESIC 1890 MALIGNANT 06-04-2015 [facility] NEOP[facility]M OF [facility] KIDNEY INC EXCEPT PELVIS V5811 ENCOUNTER 06-04-2015 [place] [facility] ANTINEOPLAS INC TIC CHEMOTHERAP Y V5869 LONG-TERM 05-15-2015 [facility] (CURRENT) PHYSICIANS USE OF GROUP OTHER MEDICATIONS 64104 OVERWEIGHT 04-23-2015 [facility] PHYSICIANS GROUP 4019 UNSPECIFIED 04-23-2015 [facility] ESSENTIAL PHYSICIANS HYPERTENSIO GROUP N 95275 DIVERTICULI 04-23-2015 [facility] TIS OF PHYSICIANS COLON GROUP 10694 DIVERTICULI 04-11-2015 [facility] TIS OF PHYSICIANS COLON WITH GROUP HEMORRHAGE 06843 ABDOMINAL 04-11-2015 [facility] PAIN, LEFT PHYSICIANS LOWER GROUP QUADRANT 30081 ABDOMINAL 04-11-2015 [facility] PAIN, PHYSICIANS PERIUMBILIC GROUP 42626 ABDOMINAL 04-11-2015 [facility] PAIN OTHER PHYSICIANS SPECIFIED GROUP SITE V1052 PERSONAL 04-11-2015 [facility] HISTORY OF PHYSICIANS MALIGNANT GROUP NEOPLASM OF KIDNEY 2559 UNSPECIFIED 04-06-2015 [place] DISORDER MEDICAL OF ADRENAL IMAGING ASS GLANDS 5180 PULMONARY 04-06-2015 [place] COLLAPSE MEDICAL IMAGING ASS 24688 UNSPEC 04-06-2015 [place] VENTRAL MEDICAL LUIS W/O IMAGING ASS MENTION OBST/GANGRE N 7856 ENLARGEMENT 04-06-2015 [place] OF LYMPH MEDICAL NODES IMAGING ASS 15843 ABDOMINAL 04-06-2015 [facility] PAIN, [facility] UNSPECIFIED INC SITE 51045 OTHER 04-06-2015 [place] NONSPECIFIC MEDICAL ABNORMAL IMAGING ASS FINDING OF LUNG FIELD 2724 OTHER AND 03-23-2015 [facility] UNSPECIFIED PHYSICIANS GROUP HYPERLIPIDE [place] V4573 ACQUIRED 02-28-2015 [place] ABSENCE OF MEDICAL KIDNEY IMAGING ASS 2357 NEOPLASM 02-07-2015 [facility] P TRACH BRONCHUS&STEFANI NG 7231 CERVICALGIA 01-25-2015 [place] MEDICAL IMAGING ASS 7245 UNSPECIFIED 01-25-2015 [place] BACKACHE MEDICAL IMAGING ASS 91395 DIVERTICULO 01-24-2015 [facility] SIS OF [facility] COLON URGENT TREAT 5770 ACUTE 01-24-2015 [facility] PANCREATITI [facility] S URGENT TREAT 7242 LUMBAGO 01-24-2015 [facility] URGENT TREAT 55865 LEUKOCYTOSI 01-10-2015 [facility] S PHYSICIANS UNSPECIFIED GROUP 4011 ESSENTIAL 01-10-2015 [facility] HYPERTENSIO PHYSICIANS N, BENIGN GROUP 51915 COR 01-10-2015 [facility] ATHEROSLERO PHYSICIANS UNSPEC GROUP TYPE VESSEL [place]/NONA T 7880 RENAL COLIC 01-09-2015 [place] [facility] 7881 DYSURIA 01-09-2015 [place] [facility] 25317 SOLITARY 01-09-2015 [facility] PULMONARY [facility] NODULE INC 4739 UNSPECIFIED 07-18-2014 [facility]Y PHYS 87486 PAIN IN 07-18-2014 [facility] JOINT, N EMERGENCY ANKLE AND PHYS FOOT 16116 TENOSYNOVIT 07-18-2014 [facility] IS OF FOOT N EMERGENCY AND ANKLE PHYS 5990 URINARY 06-16-2014 [facility] N EMERGENCY INFECTION PHYS SITE NOT SPECIFIED 7804 DIZZINESS 06-16-2014 [facility] AND N EMERGENCY GIDDINESS PHYS 92323 GENERALIZED 05-06-2014 [facility] ANXIETY DISORDER 7248 OTHER 03-23-2014 [facility] SYMPTOMS REFERABLE TO BACK 2374 NEOPLASM 02-21-2014 [facility] BHV OTH&UNSPEC ENDOCRN GLANDS 7840 HEADACHE 02-21-2014 [facility] 11175 DIARRHEA 02-21-2014 [facility] 2359 NEOPLASM 02-16-2014 [...] AT 00 05 06 30 30 00 IA Ac EN 78 -2 -3 .0 00 L- ti OL 11 8- 0- 00 07 MA ve OL 07 20 20 48 RT 80 17 17 95 25 1 44 PH AR MG MA CY TA BL #5 ET 91 CY 68 05 06 30 30 00 IA Ac CL 64 -2 -3 .0 00 L- ti OB 50 8- 0- 00 07 MA ve EN 51 20 20 48 RT ZA 89 17 17 95 ME 0 45 PH IN AR E MA 10 CY MG #5 91 TA BL ET AL 16 05 06 30 30 00 IA Ac LO 71 -2 -3 .0 00 [...] ve LO 52 20 20 48 RT ME 05 17 17 95 AM 4 46 PH AR 20 MA CY MG #5 TA 91 BL ET FL 60 05 06 16 30 00 WA Ac UT 43 -2 -3 .0 00 L- ti IC 20 8- 0- 00 07 MA ve 26 20 20 48 RT ON 41 17 17 95 E 5 47 PH ME AR OP MA CY 50 #5 MC 91 G SP RA Y ME 68 05 06 60 30 00 WA Ac TF 64 -2 -3 .0 00 L- ti OR 50 8- 0- 00 07 MA ve VT 54 20 20 48 RT N 55 17 17 95 HC 9 49 PH L AR 1, MA 00 CY 0 MG #5 91 TA BL ET LO 68 05 30 30 00 IA Ac SA 64 -2 -2 .0 00 [...] E GA 53 05 90 30 00 IA Ac BA 74 -2 -2 .0 00 [...] #5 N 91 10 -3 25 ME 54 05 30 30 00 WA Ac [...] ME 68 05 06 60 30 00 IA Ac TF 64 -0 -0 .0 00 L- ti OR 50 1- 2- 00 07 MA ve VT 54 20 20 48 RT N 55 17 17 54 HC 9 56 PH L AR 1, MA 00 CY 0 MG #5 91 TA BL ET CY 68 05 30 30 00 IA Ac CL 64 -0 -0 .0 00 L- ti OB 50 1- 2- 00 07 MA ve EN 51 20 20 48 RT ZA 89 17 17 54 ME 0 57 PH IN AR E MA 10 CY MG #5 91 TA BL ET FL 60 05 06 16 30 00 IA Ac UT 43 -0 -0 .0 00 L- ti IC 20 1- 2- 00 07 MA ve 26 20 20 48 RT ON 41 17 17 54 E 5 88 PH ME AR OP MA CY 50 #5 MC 91 G SP RA Y ES 68 04 30 30 00 IA Ac CI 64 -2 -0 .0 00 L- ti TA 50 8- 2- 00 07 MA ve LO 52 20 20 41 RT ME 05 17 17 81 AM 4 82 PH AR 20 MA CY MG #5 TA 91 BL ET LI 54 04 30 30 00 IA Ac SI 45 -2 -0 .0 00 L- ti NO 80 8- 2- 00 07 MA ve ME 99 20 20 47 RT IL 91 17 17 87 0 87 PH 2. AR 5 MA MG CY TA #5 BL 91 ET AT 00 01 17 30 30 00 IA Ac EN 78 -0 -0 .0 00 [...] OX 00 04 05 90 30 00 IA Ac YC 40 -2 -2 .0 00 L- ti OD 60 4- 6- 00 02 MA ve ON 52 20 20 24 RT E- 30 17 17 00 AC 1 36 PH ET AR AM MA IN CY OP HE #5 N 91 10 -3 25 ME 54 04 05 30 30 00 WA [...] 50 7- 8- 00 07 MA ve VT 54 20 20 47 RT N 55 [...] ve LO 52 20 20 47 RT ME 05 17 17 87 AM 4 72 [...] 47 RT ZA 89 17 17 90 ME 0 45 PH IN AR E MA 10 CY MG #5 91 TA BL ET FL 60 03 04 16 30 00 WA Ac UT 43 -2 -2 .0 00 L- ti IC 20 7- 8- 00 07 MA ve 26 20 20 45 RT ON 41 17 17 53 E 5 94 PH ME AR OP MA CY 50 #5 MC 91 G SP RA Y LI 68 03 04 30 30 00 WA Ac SI 18 -2 -2 .0 00 L- ti NO 00 7- 8- 00 07 MA ve ME 51 20 20 47 RT IL 20 [...] #5 N 91 10 -3 25 ME 54 03 04 30 30 00 WA [...] 50 4- 1- 00 07 MA ve VT 54 20 20 47 RT N 55 [...] ve LO 52 20 20 46 RT ME 05 17 17 08 AM 4 69 [...] 47 RT ZA 89 17 17 32 ME 0 32 PH IN AR E MA [...] 17 17 53 E 5 94 PH ME AR OP MA CY 50 #5 MC 91 G SP RA Y ME 00 02 03 30 30 00 WA [...] 46 RT ZA 89 17 17 08 ME 0 68 PH IN AR E MA [...] ve LO 52 20 20 46 RT ME 05 17 17 08 AM 4 69 PH AR 20 MA CY MG #5 TA 91 BL ET ME 23 01 02 60 30 00 WA Ac TF 15 -2 -2 .0 00 L- ti OR 50 3- 4- 00 07 MA ve VT 10 20 20 46 RT N 41 [...] #5 N 91 10 -3 25 ME 54 12 30 30 00 WA Ac [...] 20 7- 7- 00 07 MA ve VT 75 20 20 46 RT N 81 [...] 16 17 56 E 5 83 PH ME AR OP MA CY 50 #5 MC [...] 46 RT ZA 09 16 17 08 ME 0 68 PH IN AR E MA 10 CY MG #5 91 TA BL ET ES 68 12 30 30 00 WA Ac CI 64 -2 -2 .0 00 L- ti TA 50 7- 7- 00 07 MA ve LO 52 20 20 46 RT ME 05 16 17 08 AM 4 69 [...] 0 RT 1 E- 30 16 16 VT AC 1 PH CH ET AR AE AM MA L IN CY S OP # HE N 10 10 05 -3 91 25 ME 54 01 02 2 30 30 WA 73 GA Ac AV 45 -0 -0 0. L- 94 IN ti 80 6- 5- 00 MA 01 EY ve TA 92 20 20 0 RT 6 TI 51 16 16 VT N 0 PH CH SO AR AE DI MA L UM CY S # 40 10 MG 05 91 TA B OM 60 01 02 2 30 30 WA 73 GA Ac EP 50 -0 -0 0. L- 94 IN ti RA 53 6- 5- 00 MA 01 EY ve ZO 95 20 20 0 RT 3 LE 20 16 [address] AR AE MA L 20 CY S # MG 10 CA 05 PS 91 UL E ES 68 01 02 2 30 30 WA 73 GA Ac CI 64 -0 -0 0. L- 94 IN ti TA 50 6- 5- 00 MA 01 EY ve LO 44 20 20 0 RT 4 ME 77 16 16 VT AM 0 PH CH AR AE 20 MA L CY S MG # TA 10 BL 05 ET 91 AT 51 01 02 2 30 30 WA 73 GA Ac EN 07 -0 -0 0. L- 94 IN ti OL 90 6- 5- 00 MA 01 EY ve OL 75 20 20 0 RT 7 96 16 16 VT 25 3 PH CH AR AE MG MA L CY S TA # BL ET 10 05 91 GE 31 01 02 2 60 30 WA 73 GA Ac MF 72 -0 -0 0. L- 94 IN ti IB 20 6- 5- 00 MA 01 EY ve RO 22 20 20 0 RT 5 ZI 50 16 16 VT L 5 PH CH 60 AR AE 0 MA L MG CY S # TA BL 10 ET 05 91 AL 16 01 02 2 30 30 WA 73 GA Ac LO 71 -0 -0 0. L- 94 IN ti PU 40 6- 5- 00 MA 01 EY ve RI 04 20 20 0 RT 2 NO 10 16 16 VT L 7 PH CH 10 AR AE 0 MA L MG CY S # TA BL 10 ET 05 91 CY 68 02 02 0 [address] Ac CL 64 -0 -0 0. L- 99 ON ti OB 50 5- 5- 00 MA 84 E ve EN 45 20 20 0 RT 3 DI ZA 09 16 16 XI ME 0 PH E IN AR D E MA 10 CY # MG 10 TA 05 BL 91 ET ON 53 01 02 0 50 25 WA 88 GA Ac ET 88 -1 -0 0. L- 32 IN ti OU 50 5- 5- 00 MA 98 EY ve CH 24 20 20 0 RT 1 45 16 16 VT UL 0 PH CH TR AR AE [...] Procedure [place] [address] [place] ROGER ABDOMEN & 7 MEDICAL PELVIS IMAGING W/O ASS CONTRAST MATERIAL RADEX 69592 [facility] FOOT 7 [facility] COMPLETE INC INC MINIMUM 3 VIEWS ECHO 86026 [facility] TTHRC R-T 7 [facility] 2D INC INC W/WOM-MOD E COMPL SPEC&[place] [address] [facility] ABDOMEN & 7 [facility] PELVIS INC INC W/CONTRAS T MATERIAL CREATININ 50687 [facility] E BLOOD 7 [facility] INC INC COLLECTIO 26923 [facility] N VENOUS 7 [facility] BLOOD INC INC VENIPUNCT URE LOCM Q9967 [facility] AMB[facility]ATOR [phone] [facility] Y SURGERY MG/ML INC CENTER, IODINE L CONCENTRA TION PER ML CT THORAX 00072 [facility] 7 [facility] W/[place] [address] [facility] UREA 7 [facility] MEM [...] AIRWAY EQUIPME EQUIPME PRESSURE DEVICE DRUG TEST 97965 [facility] PRSMV 7 [facility] QUAL DIR INC INC OPTICAL OBS PER DAY CONTINUOU E0601 [facility] Kwon 7 HOME HOME POSITIVE MEDICAL MEDICAL AIRWAY EQUIPME EQUIPME PRESSURE DEVICE DRUG TEST 05611 [facility] PRSMV [address] [facility] QUAL DIR INC INC OPTICAL OBS PER DAY CONTINUOU E0601 [facility] Kwon 7 HOME HOME POSITIVE MEDICAL MEDICAL AIRWAY EQUIPME EQUIPME PRESSURE DEVICE COMPREHEN 24478 [facility] SIVE [address] [facility] METABOLIC INC INC PANEL HEMOGLOBI 03343 [facility] N [address] [facility] GLYCOSYLA INC INC ERICA A1C COLLECTIO 16087 [facility] N VENOUS 7 [facility] BLOOD INC INC VENIPUNCT URE CONTINUOU E0601 [facility] Kwon 7 HOME HOME POSITIVE MEDICAL MEDICAL AIRWAY EQUIPME EQUIPME PRESSURE DEVICE HOSPITAL [address] 7 PHYSICIAN DAY S GROUP MANAGEMEN T 30 MIN/< SBSQ 11102 [facility] 7 PHYSICIAN CARE/DAY S [place] [address] [place] [address] [facility] ABDOMEN & 7 MEDICAL PELVIS IMAGING W/O ASS CONTRAST MATERIAL FINAL G9551 [facility] ROGER REPR ABD 7 MEDICAL IMAG STS IMAGING W/O ASS INCIDNT FND LES NTD: FINAL G9638 [facility] REPORTS 7 MEDICAL W/O DOC IMAGING 1/MORE ASS DOSE REDUCTION TECH INITIAL 80033 [facility] 7 PHYSICIAN CARE/DAY [place] [address] [place] [address] [facility] KANA ABDOMEN & 7 MEDICAL PELVIS IMAGING [...] [place] [address] [facility] BRADFORDANNAKE ABDOMEN & 6 MEDICAL PELVIS IMAGING W/O ASS CONTRAST MATERIAL POLYSOM 55082 [facility] PAVEZ 6/>YRS 6 PHYSICIAN SLEEP S GROUP W/CPAP 4/> ADDL DEMETRIUS ATTND CONTINUOU E0601 [facility] TRINH S 6 HOME HOME POSITIVE MEDICAL MEDICAL AIRWAY EQUIPME EQUIPME PRESSURE DEVICE DRUG TEST G0481 [facility] DEFINITV [address] ID INC INC METH P DAY 8-[address] OPHTH 89111 D[facility]NI DANNI MEDICAL 6 AYAH AYAH XM&EVAL [...] P DAY 8 DRUG CL SLEEP STD 03856 [facility] AIRFLOW 6 [facility] HRT INC INC RATE&O2 [place] [address] [facility] FARHAD ADJUVANTE 6 PHYSICIAN JASMYNE D VACCINE S GROUP FOR INTRAMUSC ULAR USE DRUG TST G0477 [facility] PRESUMP;C 6 [facility] PBL BEING INC INC READ DC OPT OBV ONLY IM ADM 18322 [facility] FARHAD PRQ ID 6 PHYSICIAN JASMYNE SUBQ/IM S GROUP NJXS 1 VACCINE BONE 72234 [facility] &/JOINT [address] [facility] IMAGING INC INC WHOLE BODY TECHNETIU A9503 [facility] TC-99M 6 [facility] MEDRONATE INC INC DX UP TO 30 MCI COMPREHEN 63155 [facility] SIVE 6 [facility] METABOLIC INC INC PANEL COLLECTIO 34652 [facility] N VENOUS [address] [facility] BLOOD INC INC VENIPUNCT URE BLOOD 83342 [facility] COUNT 6 [facility] COMPLETE INC INC AUTO&AUTO DIFRNTL WBC DRUG TEST G0481 [facility] DEFINITV [address] [facility] [address] ID INC INC METH P DAY 8-14 DRUG CL DRUG TST G0477 [facility] PRESUMP;C 6 [facility] PBL BEING INC INC READ DC OPT OBV ONLY COMPREHEN 52570 [facility] SIVE 6 [facility] [place] [address] [place] ROGER ALL THORACIC 6 MEDICAL SPINE W/[place] [address] [place] ROGER ALL ABDOMEN & 6 MEDICAL PELVIS IMAGING W/O ASS CONTRAST MATERIAL DRUG TST G0477 [facility] PRESUMP;C 6 [facility] PBL BEING INC INC READ DC OPT OBV ONLY THERAPEUT 90822 [facility] 6 PHYSICIAN JASMYNE PROPHYLAC S GROUP TIC/DX INJECTION SUBQ/IM INJECTION J1100 COUNTS INCLUDE 234 [facility]ED[facility] AT [facility] 6 PHYSICIAN JASMYNE DEXAMETHO S GROUP [...] INC READ DC OPT OBV ONLY BLOOD 18184 [facility] COUNT 6 [facility] COMPLETE INC INC AUTO&AUTO DIFRNTL WBC UNCLASSIF J3490 [facility] IED DRUGS 6 [facility] INC INC LOCM Q9967 [facility] [phone] [facility] MG/ML INC INC IODINE CONCENTRA TION PER ML COMPREHEN 41561 [facility] SIVE 6 [facility] METABOLIC INC INC PANEL CT THORAX 09753 [facility] R[facility] ALL 6 MEDICAL W/[place] [address] [facility] THYROID 6 [facility] STIMULATI [place] [id number] [facility] UREA 6 [facility] NITROGEN INC INC QUANTITAT MENG COLLECTIO 97582 [facility] N VENOUS 6 [facility] BLOOD INC INC VENIPUNCT URE CREATININ 43940 [facility] E BLOOD 6 [facility] INC INC UNCLASSIF [id number] [facility] IED DRUGS 6 [place] [address] [facility] ABDOMEN & 6 [facility] PELVIS INC INC W/CONTRAS T MATERIAL LOC Q9967 [facility] [phone] [facility] MG/ML INC INC IODINE CONCENTRA TION PER ML CT THORAX 29459 [facility] 6 [facility] W/CONTRAS INC INC T MATERIAL COMPREHEN 77599 [facility] SIVE 6 [facility] METABOLIC INC INC PANEL BLOOD 20875 [facility] COUNT 6 [facility] COMPLETE INC INC AUTO&AUTO DIFRNTL WBC BLOOD 47403 [facility] COUNT 6 [facility] COMPLETE INC INC AUTO&[place] [address] [facility] INFUSION 6 [facility] THERAPY/P INC INC ROPHYLAXI S /DX 1ST TO 1 HR INJECTION J9299 [facility] 6 [facility] NIVOLUMAB INC INC 1 MG BLOOD 26065 [facility] COUNT 6 [facility] COMPLETE INC INC AUTO&AUTO DIFRNTL WBC [place] 44562 EL[facility]ANS[facility] ADMN IV 6 [facility] NFS TQ UP INC INC 1 HR / SBST/DRUG BASIC 12539 [facility] METABOLIC 6 [facility] PANEL INC INC CALCIUM TOTAL CT THORAX 47077 NIVIA ROGER ALL 5 MEDICAL W/[place] [address] NIVIA ROGER ALL ABDOMEN & 5 MEDICAL PELVIS IMAGING W/CONTRAS ASS T MATERIAL [place] 60729 EL[facility]OHANSEN ADMN IV 5 [facility] NFS TQ UP INC INC 1 HR SBST/DRUG BLOOD 58338 [facility] COUNT 5 [facility] COMPLETE INC INC AUTO&AUTO DIFRNTL WBC COMPREHEN 63163 [facility] SIVE 5 [facility] METABOLIC INC INC PANEL [place] 31016 ELENO JOHANSEN ADMN IV 5 [facility] NFS TQ UP INC INC 1 HR SBST/DRUG INJECTION C9453 [facility] 5 [facility] NIVOLUMAB INC INC 1 MG BLOOD 49245 [facility] COUNT 5 [facility] COMPLETE INC INC AUTO&AUTO DIFRNTL WBC IIV3 71402 [facility] VACCINE 5 PHYSICIAN JASMYNE SPLIT S GROUP VIRUS 0.5 ML DOSAGE IM USE IM ADM 76485 [facility] PRQ ID 5 PHYSICIAN JASMYNE SUBQ/IM S GROUP NJXS 1 VACCINE [place] 55766 ELENO J[facility]ANSEN ADMN IV 5 [facility] NFS TQ UP INC INC 1 HR SBST/DRUG BLOOD 49715 [facility] COUNT 5 [facility] COMPLETE INC INC AUTO&AUTO DIFRNTL WBC COMPREHEN 10628 [facility] SIVE 5 [facility] METABOLIC INC INC PANEL CT THORAX 19388 [facility] 5 [facility] W/CONTRAS INC INC T MATERIAL LOCM Q9967 ELENO JOHANSEN [phone] 5 [facility] MG/ML INC [place] [address] EL[facility] J[facility]ANSEN ABDOMEN 5 [facility] W/CONTRAS INC INC T MATERIAL COLLECTIO 12425 ELENO [facility]OHANS[facility] N VENOUS 5 [facility] BLOOD INC INC VENIPUNCT URE [place] 85826 ELENO TAYLORON ADMN IV 5 [facility] NFS TQ UP INC INC 1 HR SBST/DRUG BLOOD 88575 [facility] T[facility]ORON COUNT 5 [facility] COMPLETE INC INC AUTO&AUTO DIFRNTL WBC BLOOD 93912 [facility] COMPLETE INC INC AUTO&AUTO DIFRNTL WBC CHEMOTX 27654 [facility] TAYLORON ADMN IV 5 [facility] NFS TQ UP INC INC 1 HR SBST/DRUG COMPREHEN 60083 [facility]EN SIVE 5 [facility] METABOLIC INC INC PANEL CHEMOTX 31983 EL[place] T[place] ADMN IV 5 [facility] NFS TQ UP INC INC 1 HR SBST/DRUG BLOOD 95021 [facility]OHANSEN COUNT 5 [facility] COMPLETE INC INC AUTO&AUTO DIFRNTL WBC BLOOD 34053 ELENOIOVNNE JOHANSEN COUNT 5 [facility] COMPLETE INC INC AUTO&AUTO DIFRNTL WBC CHEMOTHER 19409 ELENO ELENO APY ADMN 5 [facility] IV INC INC INFUSION TQ EA HR COMPREHEN 69221 [facility]ANSEN SIVE 5 [facility] METABOLIC INC INC PANEL CHEMOTX 63107 ELENOIVONNE TAYLORON ADMN IV 5 [facility] NFS TQ UP INC INC 1 HR SBST/DRUG COLLECTIO 21007 [facility] JOHANSEN N VENOUS 5 [facility] BLOOD INC INC VENIPUNCT URE LOCM Q9967 EL[facility] JOHANSEN [phone] 5 [facility] MG/ML INC INC IODINE CONCENTRA TION PER ML CT THORAX 82478 [facility] 5 [facility] W/[place] [address] EL[facility] JOHANSEN ABDOMEN & 5 [facility] PELVIS INC INC W/CONTRAS T MATERIAL BLOOD 11215 [facility] JOHANSEN COUNT 5 [facility] COMPLETE INC INC AUTO&[place] [address] [facility] JOHANSEN LIPASE 5 [facility] INC INC COMPREHEN 06969 [facility]ANSEN SIVE 5 [facility] METABOLIC INC INC PANEL COLLECTIO 10831 [facility] JOHANSEN N VENOUS [address] [facility] [place]LOOD [place] [address] ELENO JOHANSEN AMYLASE [address] [facility] INC INC COMPREHEN 15707 [facility] JOHANSEN SIVE 5 [facility] METABOLIC INC INC PANEL COLLECTIO 97168 EL[facility] JOHANSEN N VENOUS 5 [facility] BLOOD INC INC VENIPUNCT URE BLOOD 16795 [facility] JOHANSEN COUNT [address] [facility] COMPLETE INC INC AUTO&[place] [address] ELENO JOHANSEN ERYTHROPO [address] [facility] [place] [address] [place] DA[place] ABDOMEN & 5 MEDICAL SHELIA PELVIS IMAGING W/O ASS CONTRAST [facility]ERIAL H[facility]PITAL 8[address]48 [facility] DISCHARGE 5 CARE R H DAY ASSOCIATE MANAGEMEN S T 30 MIN/< SBSQ 96427 [place] [address] CARE R H CARE/DAY ASSOCIATE 15 S MINUTES INITIAL 69278 [facility] 5 PHYSICIAN CONSULT S GROUP NEW/ESTAB PT 55 MIN INITIAL 91961 [place] [address] CARE R H CARE/DAY ASSOCI[place] [address] [place] [address] [facility] ALL ABDOMEN & 5 MEDICAL PELVIS IMAGING W/O ASS CONTRAST MATERIAL RADEX 04219 ELENO TAYLORON SPINE [address] [facility] LUMBOSACR INC INC AL MINIMUM 4 VIEWS RADEX 88490 ELENO ELENO SPINE [address] [facility] CERVICAL INC INC 4 OR 5 VIEWS HOSPITAL 66069 [facility] DISCHARGE 5 CARE R H DAY ASSOCIATE MANAGEMEN S T 30 MIN/< SBSQ 50214 [facility] 5 PHYSICIAN CARE/DAY S GROUP [address] THORAX 18520 [place] DANA W/O 5 MEDICAL SHELIA CONTRAST IMAGING MATERIAL ASS INITIAL [address] [facility] 5 CARE R H CARE/DAY ASSOCIATE 50 S MINUTES INITIAL 83266 [facility] SRINIVAS TOD INPATIENT 5 PHYSICIAN CONSULT S GROUP NEW/ESTAB [place] [address] [place] [address] [place] DANA ABDOMEN & 5 MEDICAL SHELIA PELVIS IMAGING W/CONTRAS ASS T MATERIAL ECG 04298 [facility] ROUTINE 4 JOSE F IMT ECG EMERGENCY W/LEAST PHYS 12 LDS I&R ONLY URINLS 59551 HARSHAD RANDALL HARSHAD RANDALL DIP 4 STICK/TAB LET REAGNT NON-AUTO MICRSCPY METANEPHR 43017 [facility] 4 DIAGNOSTI DIAGNOSTI CS CS LIPID 80848 HARSHAD GigyaES RANDALL PANEL 4 LOCM Q9967 EL[facility] JOHANSEN [phone] 4 [facility] MG/ML INC INC IODINE CONCENTRA TION PER ML CT THORAX 77881 [facility] JOHANSEN 4 [facility] W/[place] [address] DANA DANA ABDOMEN & 4 SHELIA SHELIA PELVIS W/O CONTRAST MATERIAL Encounters Encounter Start End Date Code Location Performer Type Date OFFICE 38500 [facility] LISETTE VALERA 7 7 PHYSICIAN A T NEW 60 S GROUP MINUTES EMERGENCY 09532 DANAY LLAMAS DEPT 7 7 PHYSICIAN VISIT S, PLLC HIGH SEVERITY& THREAT [facility] [place] - [address] [facility] OUTPATIEN [facility] - [address] [facility]PATIEN [facility] T OFFICE 64341 [facility] FARHAD KENYONEN 7 7 PHYSICIAN T VISIT S GROUP 15 MINUTES OFFICE 58277 [facility] 7 7 PHYSICIAN T VISIT S GROUP 25 MINUTES HOSPITAL [facility] - 7 7 [facility] OUTPATIEN [facility] - 7 7 [facility]IEN [facility] T OFFICE 44230 [facility] FARHAD OUTPATIEN 7 7 PHYSICIAN T VISIT S GROUP 25 MINUTES HOSPITAL [facility] - 7 7 [facility] OUTPATIEN INC T OFFICE 05547 [facility] FARHAD OUTPATIEN 7 7 PHYSICIAN T VISIT S GROUP 25 MINUTES OFFICE 89194 [facility] FARHAD OUTPATIEN 7 7 PHYSICIAN T VISIT S GROUP 25 MINUTES HOSPITAL [place] - 7 7 [facility] INPATIENT INC EMERGENCY 73869 [facility] DEPT 7 7 PHYSICIAN VISIT S, [facility] HIGH SEVERITY& THREAT [facility] OFFICE 17734 [place] SMITH OUTPATIEN [address] [facility] 5 HOSPITAL MINUTES [facility] [place] - 6 6 [facility] OUTPATIEN [facility] T OFFICE 14998 [facility] FARHAD OUTPATIEN 6 6 PHYSICIAN T VISIT S GROUP 15 MINUTES EMERGENCY 77427 [facility] DEPT 6 6 PHYSICIAN VISIT S, [facility] HIGH SEVERITY& THREAT [facility] [place] - 6 6 [facility] OUTPATIEN [facility] [place] - 6 6 [facility] OUTPATIEN INC T OFFICE 81595 [facility] FARHAD OUTPATIEN 6 6 PHYSICIAN JASMYNE T VISIT S GROUP 15 MINUTES HOSPITAL [place] - 6 6 [facility] OUTPATIEN [facility] [place] - 6 6 [facility] OUTPATIEN INC T OFFICE 24374 [facility] FARHAD OUTPATIEN 6 6 PHYSICIAN JASMYNE T VISIT S GROUP 15 MINUTES HOSPITAL [place] - 6 6 [facility] OUTPATIEN INC T OFFICE 30033 [place] SMITH OUTPATIEN 6 6 [facility] 10 P [facility] [place] - 6 6 [facility] OUTPATIEN INC T OFFICE 61189 [place] SMITH OUTPATIEN 6 6 [facility] 15 P MINUTES HOSPITAL [place] - 6 6 [facility] OUTPATIEN INC T OFFICE 70070 [facility] FARHAD OUTPATIEN 6 6 PHYSICIAN JASMYNE T VISIT S GROUP 15 MINUTES [facility]OSP[facility] [place] - 6 6 [facility] OUTPATIEN INC [facility] [place] - 6 6 [facility] OUTPATIEN INC T OFFICE 17318 [facility] FARHAD OUTPATIEN 6 6 PHYSICIAN JASMYNE T VISIT 5 S GROUP MINUTES EMERGENCY 04356 [facility] DEPT 6 6 PHYSICIAN JASMYNE VISIT S, [facility] HIGH SEVERITY& THREAT [facility] [place] - 6 6 [facility] OUTPATIEN INC T OFFICE 50012 [facility] FARHAD OUTPATIEN 6 6 PHYSICIAN JASMYNE T VISIT S GROUP 15 MINUTES HOSPITAL [place] - 6 6 [facility] OUTPATIEN INC T OFFICE 22704 [facility] FARHAD OUTPATIEN 6 6 PHYSICIAN JASMYNE T VISIT S GROUP 10 MINUTES [facility]OSP[facility] [place] - 6 6 [facility] OUTPATIEN INC T OFFICE 02453 [facility] FARHAD OUTPATIEN 6 6 PHYSICIAN JASMYNE T VISIT S GROUP 15 MINUTES OFFICE 24187 [facility] FARHAD OUTPATIEN 6 6 PHYSICIAN JASMYNE T VISIT S GROUP 10 MINUTES OFFICE 09891 [place] SMITH OUTPATIEN 6 6 [facility] 10 P MINUTES HOSPITAL [place] - 6 6 [facility] OUTPATIEN INC T OFFICE 14143 [facility] FARHAD OUTPATIEN 6 6 PHYSICIAN JASMYNE T VISIT S GROUP 10 MINUTES [facility]OSP[facility] [place] - 6 6 [facility] OUTPATIEN INC [facility] [place] - 6 6 [facility] OUTPATIEN INC T OFFICE 81925 [place] SMITH OUTPATIEN [address] [facility] T VISIT HOSPITAL 10 P MINUTES [facility]OSPITAL [place] - 6 6 [facility] OUTPATIEN INC T OFFICE 10706 [facility] FARHAD OUTPATIEN 6 6 PHYSICIAN JASMYNE T VISIT S GROUP 10 MINUTES [facility]OSP[facility] [place] - 6 6 [facility] OUTPATIEN INC T OFFICE 92145 [place] SMITH OUTPATIEN [address] [facility] T [facility] 10 P MINUTES OFFICE 12576 [place] SMITH OUTPATIEN [address] [facility] T [facility] 10 P MINUTES OFFICE 16048 [facility] FARHAD OUTPATIEN 6 6 PHYSICIAN JASMYNE T VISIT S GROUP 15 MINUTES [facility]OSP[facility] [place] - 6 6 [facility] OUTPATIEN INC T OFFICE 01230 [place] SMITH OUTPATIEN 5 5 [facility] 10 P MINUTES OFFICE 06603 [facility] OUTPATI[facility] 5 5 PHYSICIAN JASMYNE T VISIT S GROUP 10 MINUTES [facility] [place] - 5 5 [facility] OUTPATIEN INC T OFFICE 12333 [place] SMITH OUTPATIEN [address] [facility] T [facility] 5 HOSPITAL MINUTES [facility] [place] - 5 5 [facility] OUTPATIEN [facility] [place] - 5 5 [facility] OUTPATIEN INC T OFFICE 80153 [facility] FARHAD OUTPATIEN 5 5 PHYSICIAN JASMYNE T VISIT S GROUP 10 MINUTES OFFICE 70522 [place] SMITH OUTPATIEN [address] [facility] T [facility] 10 P MINUTES [facility] [place] - 5 5 [facility] OUTPATIEN INC T [facility] [place] - 5 5 [facility] OUTPATIEN INC T [facility] [place] - 5 5 [facility] OUTPATIEN INC T OFFICE 34846 [facility] FARHAD OUTPATIEN 5 5 PHYSICIAN JASMYNE T VISIT S GROUP 25 MINUTES [facility]OSP[facility] [place] - 5 5 [facility] OUTPATIEN INC T OFFICE 16492 [place] SMITH OUTPATIEN [address] [facility] T VISIT 5 HOSPITAL MINUTES P [facility] [place] - 5 5 [facility] OUTPATIEN INC T OFFICE 61797 [facility] FARHAD OUTPATIEN 5 5 PHYSICIAN JASMYNE T VISIT S GROUP 10 MINUTES [facility]OSP[facility] [place] - 5 5 [facility] OUTPATIEN INC T OFFICE 70198 [place] SMITH OUTPATIEN [address] [facility] T VISIT 5 HOSPITAL MINUTES P OFFICE 53099 [facility] FARHAD OUTPATIEN 5 5 PHYSICIAN JASMYNE T VISIT S GROUP 15 MINUTES OFFICE 18619 [place] SMITH OUTPATIEN [address] [facility] T VISIT HOSPITAL 10 P MINUTES OFFICE 75353 [facility] SRINIVAS TOD OUTPATIEN 5 5 PHYSICIAN T VISIT S GROUP 15 MINUTES [facility]OSP[facility] [place] - 5 5 [facility] OUTPATIEN INC T OFFICE 32133 [facility] SRINIVAS TOD OUTPATIEN 5 5 PHYSICIAN T VISIT S GROUP 15 MINUTES [facility]OSP[facility] - 5 5 [facility] OUTPATIEN INC T OFFICE 72368 [facility] FARHAD OUTPATIEN 5 5 PHYSICIAN JASMYNE T VISIT S GROUP 15 MINUTES OFFICE 14825 [place] SMITH OUTPATIEN [address] [facility] T VISIT HOSPITAL 10 P MINUTES [facility] [place] - 5 5 [facility] OUTPATIEN INC T [facility]Y 14711 [facility] PHYSICIAN JASMYNE VISIT S, [facility] HIGH SEVERITY& THREAT FUNJ OFFICE 37861 [facility] SRINIVAS TOD OUTPATIEN 5 5 PHYSICIAN T VISIT S GROUP 15 MINUTES OFFICE 28856 [place] MTZ OUTPATIEN 5 5 [facility] 45 HOSPITAL MINUTES P EMERGENCY 53100 DANAY [facility] DEPT 5 5 PHYSICIAN JASMYNE VISIT S, [facility] HIGH SEVERITY& THREAT FUN [facility] [place] - [address] [facility] OUTPATIEN INC T OFFICE 28460 ZACK BARBOZA OUTPATIEN 5 5 [facility] T VISIT URGENT 25 TREAT MINUTES OFFICE 15130 [facility] SRINIVAS TOD OUTPATIEN 5 5 PHYSICIAN T VISIT S GROUP 15 MINUTES [facility]OSP[facility] [place] - [address] [facility] INPATIENT INC EMERGENCY 62926 [place] FARHAD 5 5 [facility] T VISIT P HIGH/URGE NT SEVERITY EMERGENCY 05138 [facility] ALFARIS 4 4 [facility] EMERGENCY T VISIT PHYS MODERATE SEVERITY EMERGENCY 14898 [facility] FRANCIS 4 4 [facility] EMERGENCY T VISIT PHYS HIGH/URGE NT SEVERITY OFFICE 93707 HARSHAD RANDALL HARSHAD RANDALL OUTPATIEN 4 4 T VISIT 15 MINUTES OFFICE 33421 HARSHAD RANDALL HARSHAD RANDALL OUTPATIEN 4 4 T VISIT 15 MINUTES OFFICE 22242 HARSHAD RANDALL HARSHAD RANDALL OUTPATIEN 4 4 T VISIT 25 MINUTES [facility]OSP[facility] [place] - 4 4 [facility] OUTPATIEN INC T OFFICE 58346 HARSHAD RANDALL HARSHAD RANDALL OUTPATIEN 4 4 T VISIT 25 MINUTES EMERGENCY 36039 [facility] DEPT 4 4 [facility] VISIT HIGH SEVERITY& THREAT FUN EMERGENCY 03371 ZENAIDA PEREIRA 4 4 [facility] Celena VISIT MODERATE SEVERITY
--- OUTSIDE RECORDS SUMMARY | 2017-06-29 15:57 | External Medical Summary Rpt | CCD ---
Demographics Preferred Language Barbadian Marital Status Unknown Samaritan Affiliation Unknown Race Unknown Ethnic Group Unknown Author Author , VITO PADRON Address Unknown Phone Immunization No patient found.
--- OUTSIDE RECORDS SUMMARY | 2017-06-29 15:57 | External Medical Summary Rpt | CCD ---
Demographics Preferred Language Beninese Marital Status Unknown Jew Affiliation Unknown Race Unknown Ethnic Group Unknown Author Author , VITO PADRON Address Unknown Phone Immunization No patient found.
--- OUTSIDE RECORDS SUMMARY | 2017-06-29 15:58 | External Medical Summary Rpt ---
Author Author [facility] Davida, [employer] Organization [employer] Address Unknown Phone Unavailable Results Amylase [Enzymatic activity/volume] in Serum or Plasma Observa Value Referen Units Interpr Notes Date tion ce etation Range Amylase 25 - 115 U/L Normal No Jun 29 [Enzymati informati 2017 c on in 12:25 AM activity/ source volume] data in Serum or Plasma Comprehensive metabolic 2000 panel in Serum or Plasma Observa Value Referen Units Interpr Notes Date tion ce etation Range Albumin/G 1.1 - 1.8 No Normal No Jun 29 lobulin informati informati 2016 [Mass on in on in 12:25 AM ratio] in source source Serum or data data Plasma Albumin 3.4 - 5.0 gm/dL Normal No Jun 29 [Mass/vol informati 2016 ume] in on in 12:25 AM Serum or source Plasma data Alkaline 46 - 116 U/L High No Jun 29 phosphata informati 2017 se on in 12:25 AM [Enzymati source c data activity/ volume] in Serum or Plasma Bilirubin 0.2 - 1.0 mg/dL Normal No Jun 29 .total informati 2016 [Mass/vol on in 12:25 AM ume] in source Serum or data Plasma Urea 7 - 18 mg/dL Normal No Jun 29 nitrogen informati 2016 [Mass/vol on in 12:25 AM ume] in source Serum or data Plasma Calcium 8.5 - mg/dL Normal No Jun 29 [Mass/vol 10.1 informati 2016 ume] in on in 12:25 AM Serum or source Plasma data Chloride 98 - 107 mmoL/L Low No Jun 29 [Moles/vo informati 2017 lume] in on in 12:25 AM Serum or source Plasma data Carbon 21.0 - mmoL/L Normal No Jun 29 dioxide, 32.0 informati 2016 total on in 12:25 AM [Moles/vo source lume] in data Serum or Plasma Creatinin 0.70 - mg/dL High No Jun 29 e 1.30 informati 2017 [Mass/vol on in 12:25 AM ume] in source Serum or data Plasma Creatinin 50 - 200 ML/MIN Normal No Jun 29 e renal informati 2017 clearance on in 12:25 AM source predicted data by Cockcroft -Gault formula Estimated >60 ML/MIN No REFERENCE Jun 29 informati RANGE: 2017 glomerula on in >60 12:25 AM r source ML/MIN/1. filtratio data 73 SQUARE n rate METERSIf (GF this patient is -A merican, then multiply theresult by 1.210. Globulin 1.3 - 3.2 gm/dL High No Jun 29 [Mass/vol informati 2016 ume] in on in 12:25 AM Serum source data Glucose 74 - 106 mg/dL High Jun 29 [Mass/vol 2016 ume] in CRITICAL 12:25 AM Serum or RESULTS Plasma RESU LTS CALLED TO: Shelton ANDERSON 06/29/17 0117 Aliyah RubinERUM GROSSLY LIPEMIC Potassium 3.5 - 5.1 mmoL/L Normal No Jun 29 inform2016 [Moles/vo on in 12:25 AM lume] in source Serum or data Plasma Sodium 136 - 145 mmoL/L Low No Jun 29 [Moles/vo informati 2016 lume] in on in 12:25 AM Serum or source Plasma data Aspartate 15 - 37 U/L Normal No Jun 29 inform2016 aminotran on in 12:25 AM sferase source [Enzymati data c activity/ volume] in Serum or Plasma Alanine 12 - 78 U/L Normal No Jun 29 aminotran informati 2016 sferase on in 12:25 AM [Enzymati source c data activity/ volume] in Serum or Plasma Protein 6.4 - 8.2 gm/dL No No Jun 29 [Mass/vol informati informati 2016 ume] in on in on in 12:25 AM Serum or source source Plasma data data Lipase [Enzymatic activity/volume] in Serum or Plasma Observa Value Referen Units Interpr Notes Date tion ce etation Range Lipase 73 - 393 U/L High SERUM Jun 16 [Enzymati GROSSLY 2017 c LIPEMIC 12:25 AM activity/ volume] in Serum or Plasma CBC W Auto Differential panel in Blood Observa Value Referen Units Interpr Notes Date tion ce etation Range Basophils 0 - 0.2 K/MM3 Normal PLASMA Jun 29 GROSSLY 2016 [#/volume LIPEMIC 12:25 AM ] in Blood by Automated count Basophils 0.1 - 2.0 % Normal No Jun 29 /100 inform2016 leukocyte on in 12:25 AM s in source Blood by data Automated count Eosinophi 0.0 - 0.4 K/mm3 Normal No Jun 29 ls inform2016 [#/volume on in 12:25 AM ] in source Blood by data Automated count Eosinophi 0.1 - % Normal No Jun 29 ls/100 12.0 inform2016 leukocyte on in 12:25 AM s in source Blood by data Automated count Granulocy 1.3 - 8.0 K/mm3 High No Jun 29 glenna inform2016 [#/volume on in 12:25 AM ] in source Blood by data Automated count Granulocy 37.0 - % Normal No Jun 29 glenna/100 80.0 inform2016 leukocyte on in 12:25 AM s in source Blood by data Automated count Hematocri 42.0 - % Normal No Jun 29 t [Volume 52.0 2016 on in 12:25 AM Fraction] source of Blood data Hemoglobi 14.1 - g/dL Normal No Jun 29 n 18.0 inform2016 [Mass/vol on in 12:25 AM ume] in source Blood data Lymphocyt 0.7 - 4.5 K/mm3 Normal No Jun 29 es inform2016 [#/volume on in 12:25 AM ] in source Unspecifi data ed specimen by Automated count Lymphocyt 10 - 50 % Normal No Jun 29 es 2016 [#/volume on in 12:25 AM ] in source Unspecifi data ed specimen by Automated count Erythrocy 27 - 31.2 pg Normal No Jun 29 te mean 2016 corpuscul on in 12:25 AM ar source hemoglobi data n [Entitic mass] Erythrocy 31.8 - g/dl Normal No Jun 29 te mean 35.4 2016 corpuscul on in 12:25 AM ar source hemoglobi data n concentra tion [Mass/vol ume] by Automated count Erythrocy 82.2 - fl Normal No Jun 29 te mean 97.8 2016 corpuscul on in 12:25 AM ar volume source [Entitic data volume] by Automated count Monocytes 0.1 - 1.0 K/mm3 Normal No Jun 29 inform2016 [#/volume on in 12:25 AM ] in source Blood by data Automated count Monocytes 1.7 - 9.3 % Normal No Jun 16 /100 inform2016 leukocyte on in 12:25 AM s in source Blood by data Automated count Platelet 7.4 - fl Normal No Jun 29 mean 10.4 inform2016 volume on in 12:25 AM [Entitic source volume] data in Blood by Automated count Platelets 142 - 424 K/mm3 Normal No Jun 29 inform2016 [#/volume on in 12:25 AM ] in source Blood data Erythrocy 4.6 - 6.2 M/mm3 Normal No Jun 29 glenna informati 2016 [#/volume on in 12:25 AM ] in source Amniotic data fluid Erythrocy 11.5 - % Normal No Jun 29 te 17.5 inform2016 distribut on in 12:25 AM ion width source [Entitic data volume] by Automated count Leukocyte 4.8 - K/MM3 High No Jun 29 s 10.8 inform2016 [#/volume on in 12:25 AM ] in source Blood data Opiates and Oxycodone(GC/MS),U Observa Value Referen Units Interpr Notes Date tion ce etation Range Oxycodo Positiv . No Abnorma Test Sep 18 ne/Oxym e informa l include 2017 orph tion in s 1:00 PM source Oxycodo data ne and Oxymorp castillo Oxycodo Positiv . No Abnorma No May 18 ne e informa l informa 2017 tion in tion in 1:00 PM source source data data Oxycodo 514 Cutoff= ng/mL No No Sep 18 ne 100 informa informa 2017 (GC/MS) tion in tion in 1:00 PM source source data data Oxymorp Positiv . No Abnorma No May 18 castillo e informa l informa 2017 tion in tion in 1:00 PM source source data data Oxymorp 106 Cutoff= ng/mL No Perform Sep 18 castillo 100 informa ed at: 2017 (GC/MS) tion in UI - 1:00 PM source [facility] data OTS [id number] T [facility], [place], [place] [id number]Lab Directo r: Cecil Carter MD, Phone: [phone] Opiates Negativ Cutoff= No No Opiate Sep 18 e 100 informa informa test 2017 tion in tion in include 1:00 PM source source s data data Codeine , Morphin e, Hydromo rphone, Hydroco done. Drugs identified in Urine by Screen method Observa Value Referen Units Interpr Notes Date tion ce etation Range Positive urine drug screen samples are stored for 7 days. Contact the Lab if confirmation of positives is needed. Ampheta NEGATIV <1000 ng/mL No No Sep 18 mine E informa informa 2017 [Presen tion in tion in 1:00 PM ce] in source source Urine data data by Screen method Barbitura <200 ng/mL No No Sep 18 glenna informati informati 2017 1:00 [Mass/vol on in on in PM ume] in source source Urine by data data Screen method Benzodiaz 200 ng/mL ng/mL No No Sep 18 epines informati informati 2017 1:00 [Mass/vol on in on in PM ume] in source source Serum or data data Plasma by Screen method Cocaine <300 ng/g No No Sep 18 [Mass/vol informati informati 2017 1:00 ume] in on in on in PM Unspecifi source source ed data data specimen Methadone <300 ng/mL No No Sep 18 informati informati 2017 1:00 [Mass/vol on in on in PM ume] in source source Unspecifi data data ed specimen Opiates <300 ng/mL No No Sep 18 [Mass/vol informati informati 2017 1:00 ume] in on in on in PM Unspecifi source source ed data data specimen Phencycli <25 ng/mL No No Sep 18 dine informati informati 2017 1:00 [Mass/vol on in on in PM ume] in source source Unspecifi data data ed specimen 11-Hydr POSITIV <50 ng/mL Abnorma This is Sep 18 oxy E l an 2017 delta-9 UNCONFI 1:00 PM RMED tetrahy result. drocann This abinol result [Presen is for ce] in medical Unspeci purpose fied s specime and/or n treatme nt only. Opiates and Oxycodone(GC/MS),U Observa Value Referen Units Interpr Notes Date tion ce etation Range Oxycodo Positiv . No Abnorma Test May 01 ne/Oxym e informa l include 2017 orph tion in s 3:30 PM source Oxycodo data ne and Oxymorp castillo Oxycodo Positiv . No Abnorma No Apr 18 ne e informa l informa 2017 tion in tion in 3:30 PM source source data data Oxycodo 1180 Cutoff= ng/mL No No May 01 ne 100 informa informa 2017 (GC/MS) tion in tion in 3:30 PM source source data data Oxymorp Positiv . No Abnorma No May 01 castillo e informa l informa 2017 tion in tion in 3:30 PM source source data data Oxymorp 985 Cutoff= ng/mL No Perform May 01 castillo 100 informa ed at: 2017 (GC/MS) tion in UI - 3:30 PM source [facility] data OTS [id number] T [facility], [place], [place] [id number]Lab Directo r: Cecil Carter MD, Phone: [phone] Opiates Negativ Cutoff= No No Opiate May 01 e 100 informa informa test 2017 tion in tion in include 3:30 PM source source s data data Codeine , Morphin e, Hydromo rphone, Hydroco done. Drugs identified in Urine by Screen method Observa Value Referen Units Interpr Notes Date tion ce etation Range Positive urine drug screen samples are stored for 7 days. Contact the Lab if confirmation of positives is needed. Ampheta NEGATIV <1000 ng/mL No May 01 mine E informa informa 2016 [Presen tion in tion in 3:30 PM ce] in source source Urine data data by Screen method Barbitura <200 ng/mL No No May 01 glenna informati informati 2017 3:30 [Mass/vol on in on in PM ume] in source source Urine by data data Screen method Benzodiaz 200 ng/mL ng/mL No No May 01 epines informati informati 2017 3:30 [Mass/vol on in on in PM ume] in source source Serum or data data Plasma by Screen method Cocaine <300 ng/g No No May 01 [Mass/vol informati informati 2017 3:30 ume] in on in on in PM Unspecifi source source ed data data specimen Methadone <300 ng/mL No No May 01 informati informati 2016 3:30 [Mass/vol on in on in PM ume] in source source Unspecifi data data ed specimen Opiates <300 ng/mL No No May 01 [Mass/vol informati informati 2016 3:30 ume] in on in on in PM Unspecifi source source ed data data specimen Phencycli <25 ng/mL No No May 01 dine informati informati 2017 3:30 [Mass/vol on in on in PM ume] in source source Unspecifi data data ed specimen 11-Hydr NEGATIV <50 ng/mL No No May 01 oxy E informa informa 2017 delta-9 tion in tion in 3:30 PM source source tetrahy data data drocann abinol [Presen ce] in Unspeci fied specime n Urinalysis dipstick W Reflex Microscopic panel in Urine Observa Value Referen Units Interpr Notes Date tion ce etation Range Appeara CLEAR CLEAR No No No Apr 25 nce of informa informa informa 2016 Urine tion in tion in tion in 6:15 PM source source source data data data Bacteri TRACE O No No No Apr 25 a informa informa informa 2016 [Presen tion in tion in tion in 6:15 PM ce] in source source source Urine data data data sedimen t by Light microsc opy Bilirub NEGATIV NEG No No No Apr 25 in E informa informa informa 2016 [Presen tion in tion in tion in 6:15 PM ce] in source source source Urine data data data by Test strip Erythro TRACE-I NEG No No No Apr 25 cytes NTACT informa informa informa 2016 [Presen tion in tion in tion in 6:15 PM ce] in source source source Urine data data data Color YELLOW YELLOW No No No Apr 25 of informa informa informa 2016 Urine tion in tion in tion in 6:15 PM source source source data data data Glucose NEG No High No Apr 25 [Mass/vol informati informati 2016 6:15 ume] in on in on in PM Urine by source source Test data data strip Ketones NEGATIV NEG mg/dL No No Apr 25 E informa informa 2016 [Presen tion in tion in 6:15 PM ce] in source source Urine data data by Automat ed test strip Mucus NEGATIV NEG No No No Apr 25 [Presen E informa informa informa 2016 ce] in tion in tion in tion in 6:15 PM Urine source source source sedimen data data data t by Light microsc opy Nitrite NEGATIV NEG No No No Apr 25 E informa informa informa 2016 [Presen tion in tion in tion in 6:15 PM ce] in source source source Urine data data data by Test strip pH of 5.0 - 8.5 No Normal No Apr 25 Urine informati informati 2017 6:15 on in on in PM source source data data Protein NEG mg/dL High No Apr 25 [Mass/vol informati 2017 6:15 ume] in on in PM Urine by source Automated data test strip Erythro OCC 0 rbc/hpf No No Apr 25 cytes informa informa 2016 [Presen tion in tion in 6:15 PM ce] in source source Urine data data sedimen t by Light microsc opy Specific 1.005 - No Normal No Apr 25 gravity 1.030 informati informati 2017 6:15 of Urine on in on in PM source source data data Urobili 0.2 NEG E.U./dL No No Apr 25 nogen informa informa 2016 [Presen tion in tion in 6:15 PM ce] in source source Urine data data by Test strip Urinalysis dipstick W Reflex Microscopic panel in Urine Observa Value Referen Units Interpr Notes Date tion ce etation Range Appeara CLEAR CLEAR No No No Apr 25 nce of informa informa informa 2017 Urine tion in tion in tion in 6:15 PM source source source data data data Bilirub NEGATIV NEG No No No Apr 25 in E informa informa informa 2016 [Presen tion in tion in tion in 6:15 PM ce] in source source source Urine data data data by Test strip Erythro TRACE-I NEG No No No Apr 25 cytes NTACT informa informa informa 2016 [Presen tion in tion in tion in 6:15 PM ce] in source source source Urine data data data Color YELLOW YELLOW No No No Apr 25 of informa informa informa 2017 Urine tion in tion in tion in 6:15 PM source source source data data data Glucose NEG No High No Apr 25 [Mass/vol informati informati 2016 6:15 ume] in on in on in PM Urine by source source Test data data strip Ketones NEGATIV NEG mg/dL No No Apr 25 E informa informa 2016 [Presen tion in tion in 6:15 PM ce] in source source Urine data data by Automat ed test strip Mucus NEGATIV NEG No No No Apr 25 [Presen E informa informa a 2016 ce] in tion in tion in tion in 6:15 PM Urine source source source sedimen data data data t by Light microsc opy Nitrite NEGATIV NEG No No No Apr 25 E informa informa inform2016 [Presen tion in tion in tion in 6:15 PM ce] in source source source Urine data data data by Test strip pH of 5.0 - 8.5 No Normal No Apr 25 Urine informati informati 2016 6:15 on in on in PM source source data data Protein NEG mg/dL High No Apr 25 [Mass/vol informati 2016 6:15 ume] in on in PM Urine by source Automated data test strip Specific 1.005 - No Normal No Apr 25 gravity 1.030 informati informati 2016 6:15 of Urine on in on in PM source source data data Urobili 0.2 NEG E.U./dL No No Apr 25 nogen informa inform2016 [Presen tion in tion in 6:15 PM ce] in source source Urine data data by Test strip CBC W Auto Differential panel in Blood Observa Value Referen Units Interpr Notes Date tion ce etation Range Basophils 0 - 0.2 K/MM3 Normal No Apr 12 informati 2016 5:35 [#/volume on in PM ] in source Blood by data Automated count Basophils 0.1 - 2.0 % Normal No Apr 12 /100 informati 2017 5:35 leukocyte on in PM s in source Blood by data Automated count Eosinophi 0.0 - 0.4 K/mm3 Normal No Apr 25 ls informati 2016 5:35 [#/volume on in PM ] in source Blood by data Automated count Eosinophi 0.1 - % Normal No Apr 25 ls/100 12.0 informati 2016 5:35 leukocyte on in PM s in source Blood by data Automated count Granulocy 1.3 - 8.0 K/mm3 Normal No Apr 25 glenna inform2016 5:35 [#/volume on in PM ] in source Blood by data Automated count Granulocy 37.0 - % Normal No Apr 25 glenna/100 80.0 informati 2016 5:35 leukocyte on in PM s in source Blood by data Automated count Hematocri 42.0 - % Normal No Apr 25 t [Volume 52.0 ati 2016 5:35 on in PM Fraction] source of Blood data Hemoglobi 14.1 - g/dL Normal No Apr 25 n 18.0 informati 2016 5:35 [Mass/vol on in PM ume] in source Blood data Lymphocyt 0.7 - 4.5 K/mm3 Normal No Apr 25 es inform2016 5:35 [#/volume on in PM ] in source Unspecifi data ed specimen by Automated count Lymphocyt 10 - 50 % Normal No Apr 252016 5:35 [#/volume on in PM ] in source Unspecifi data ed specimen by Automated count Erythrocy 27 - 31.2 pg Normal No Apr 25 te mean 2016 5:35 corpuscul on in PM ar source hemoglobi data n [Entitic mass] Erythrocy 31.8 - g/dl Normal No Apr 25 te mean 35.4 informati 2016 5:35 corpuscul on in PM ar source hemoglobi data n concentra tion [Mass/vol ume] by Automated count Erythrocy 82.2 - fl Normal No Apr 25 te mean 97.8 informati 2016 5:35 corpuscul on in PM ar volume source [Entitic data volume] by Automated count Monocytes 0.1 - 1.0 K/mm3 Normal No Apr 252016 5:35 [#/volume on in PM ] in source Blood by data Automated count Monocytes 1.7 - 9.3 % Normal No Apr 25 / informati 2016 5:35 leukocyte on in PM s in source Blood by data Automated count Platelet 7.4 - fl Low No Apr 25 mean 10.4 informati 2016 5:35 volume on in PM [Entitic source volume] data in Blood by Automated count Platelets 142 - 424 K/mm3 Normal No Apr 25 inform2016 5:35 [#/volume on in PM ] in source Blood data Erythrocy 4.6 - 6.2 M/mm3 Normal No Apr 25 glenna informati 2016 5:35 [#/volume on in PM ] in source Amniotic data fluid Erythrocy 11.5 - % Normal No Apr 25 te 17.5 informati 2016 5:35 distribut on in PM ion width source [Entitic data volume] by Automated count Leukocyte 4.8 - K/MM3 Normal No Apr 25 s 10.8 informati 2016 5:35 [#/volume on in PM ] in source Blood data Drugs identified in Urine by Screen method Observa Value Referen Units Interpr Notes Date tion ce etation Range Positive urine drug screen samples are stored for 7 days. Contact the Lab if confirmation of positives is needed. Ampheta NEGATIV <1000 ng/mL No No Apr 03 mine E informa informa 2016 [Presen tion in tion in 2:15 PM ce] in source source Urine data data by Screen method Barbitura <200 ng/mL No No Apr 03 glenna informati informati 2016 2:15 [Mass/vol on in on in PM ume] in source source Urine by data data Screen method Benzodiaz 200 ng/mL ng/mL No No Apr 03 epines informati informati 2016 2:15 [Mass/vol on in on in PM ume] in source source Serum or data data Plasma by Screen method Cocaine <300 ng/g No No Apr 03 [Mass/vol informati informati 2017 2:15 ume] in on in on in PM Unspecifi source source ed data data specimen Methadone <300 ng/mL No No Apr 03 informati informati 2016 2:15 [Mass/vol on in on in PM ume] in source source Unspecifi data data ed specimen Opiates <300 ng/mL No No Apr 03 [Mass/vol informati informati 2017 2:15 ume] in on in on in PM Unspecifi source source ed data data specimen Phencycli <25 ng/mL No No Apr 03 dine informati informati 2016 2:15 [Mass/vol on in on in PM ume] in source source Unspecifi data data ed specimen 11-Hydr POSITIV <50 ng/mL Abnorma This is Apr 03 oxy E l an 2017 delta-9 UNCONFI 2:15 PM RMED tetrahy result. drocann This abinol result [Presen is for ce] in medical Unspeci purpose fied s specime and/or n treatme nt only. Drugs identified in Urine by Screen method Observa Value Referen Units Interpr Notes Date tion ce etation Range Positive urine drug screen samples are stored for 7 days. Contact the Lab if confirmation of positives is needed. Ampheta NEGATIV <1000 ng/mL No No Mar 04 mine E informa informa 2017 [Presen tion in tion in 1:30 PM ce] in source source Urine data data by Screen method Barbitura <200 ng/mL No No Mar 04 glenna informati informati 2017 1:30 [Mass/vol on in on in PM ume] in source source Urine by data data Screen method Benzodiaz 200 ng/mL ng/mL No No Mar 04 epines informati informati 2016 1:30 [Mass/vol on in on in PM ume] in source source Serum or data data Plasma by Screen method Cocaine <300 ng/g No No Mar 04 [Mass/vol informati informati 2016 1:30 ume] in on in on in PM Unspecifi source source ed data data specimen Methadone <300 ng/mL No No Mar 04 informati informati 2016 1:30 [Mass/vol on in on in PM ume] in source source Unspecifi data data ed specimen Opiates <300 ng/mL High This is Mar 04 [Mass/vol an 2016 1:30 ume] in UNCONFIRM PM Unspecifi ED ed result. specimen This result is for medicalpu rposes and/or treatment only. Phencycli <25 ng/mL No No Mar 04 dine informati informati 2016 1:30 [Mass/vol on in on in PM ume] in source source Unspecifi data data ed specimen 11-Hydr POSITIV <50 ng/mL Abnorma This is Mar 04 oxy E l an 2017 delta-9 UNCONFI 1:30 PM RMED tetrahy result. drocann This abinol result [Presen is for ce] in medical Unspeci purpose fied s specime and/or n treatme nt only. Urea nitrogen [Mass/volume] in Serum or Plasma Observa Value Referen Units Interpr Notes Date tion ce etation Range Urea 7 - 18 mg/dL Normal No February 06 nitrogen informati 2017 8:26 [Mass/vol on in AM ume] in source Serum or data Plasma CREATININE Observa Value Referen Units Interpr Notes Date tion ce etation Range Creatinin 0.70 - mg/dL Normal No February 06 e 1.30 informati 2016 8:26 [Mass/vol on in AM ume] in source Serum or data Plasma Estimated >60 ML/MIN No REFERENCE February 06 informati RANGE: 2017 8:26 glomerula on in >60 AM r source ML/MIN/1. filtratio data 73 SQUARE n rate METERSIf (GF this patient is -A merican, then multiply theresult by 1.210. Opiates and Oxycodone(GC/MS),U Observa Value Referen Units Interpr Notes Date ti ce etation Range Oxycodo Positiv . No Abnorma Test February 03 ne/Oxym e informa l include 2017 orph tion in s 1:00 PM source Oxycodo data ne and Oxymorp castillo Oxycodo Positiv . No Abnorma No February 03 ne e informa l informa 2017 tion in tion in 1:00 PM source source data data Oxycodo 933 Cutoff= ng/mL No No February 03 ne 100 informa informa 2017 (GC/MS) tion in tion in 1:00 PM source source data data Oxymorp Positiv . No Abnorma No February 03 castillo e informa l informa 2017 tion in tion in 1:00 PM source source data data Oxymorp 773 Cutoff= ng/mL No Perform February 03 castillo 100 informa ed at: 2017 (GC/MS) tion in UI - 1:00 PM source [facility] data [facility] [id number] [place], [place] [id number]Lab Directo r: Cecil Carter MD, Phone: [phone] Opiates Negativ Cutoff= No No Opiate February 03 e 100 informa informa test 2017 tion in tion in include 1:00 PM source source s data data Codeine , Morphin e, Hydromo rphone, Hydroco done. Drugs identified in Urine by Screen method Observa Value Referen Units Interpr Notes Date tion ce etation Range Positive urine drug screen samples are stored for 7 days. Contact the Lab if confirmation of positives is needed. Ampheta NEGATIV <1000 ng/mL No No February 03 mine E informa informa 2016 [Presen tion in tion in 1:00 PM ce] in source source Urine data data by Screen method Barbitura <200 ng/mL No No February 03 glenna informati informati 2016 1:00 [Mass/vol on in on in PM ume] in source source Urine by data data Screen method Benzodiaz 200 ng/mL ng/mL No No February 03 epines informati informati 2016 1:00 [Mass/vol on in on in PM ume] in source source Serum or data data Plasma by Screen method Cocaine <300 ng/g No No February 03 [Mass/vol informati informati 2016 1:00 ume] in on in on in PM Unspecifi source source ed data data specimen Methadone <300 ng/mL No No February 03 informati informati 2016 1:00 [Mass/vol on in on in PM ume] in source source Unspecifi data data ed specimen Opiates <300 ng/mL No No February 03 [Mass/vol informati informati 2016 1:00 ume] in on in on in PM Unspecifi source source ed data data specimen Phencycli <25 ng/mL No No February 03 dine informati informati 2016 1:00 [Mass/vol on in on in PM ume] in source source Unspecifi data data ed specimen 11-Hydr POSITIV <50 ng/mL Abnorma This is February 03 oxy E l an 2017 delta-9 UNCONFI 1:00 PM RMED tetrahy result. drocann This abinol result [Presen is for ce] in medical Unspeci purpose fied s specime and/or n treatme nt only.
--- OUTSIDE RECORDS SUMMARY | 2017-06-29 15:58 | External Medical Summary Rpt ---
[...] - 1:00 PM source [facility] data OTS [id number] T [facility], [place], [place] [id number] 53Lab Directo r: Cecil Carter MD, Phone: [phone] Opiates Negativ Cutoff= No No Opiate Sep [...] - 3:30 PM source [facility] data OTS [id number] T [facility], [place], [place] [id number] 53Lab Directo r: Cecil Carter MD, Phone: [phone] Opiates Negativ Cutoff= No No Opiate May [...] UI - 1:00 PM source [facility] data [facility] [id number] [place], [place] [id number] 53Lab Directo r: Cecil Carter MD, Phone: [phone] Opiates Negativ Cutoff= No No Opiate February [...]
[2017-06-29 16:21] LABS: NEUTROPHILS 83 % (42-76)
--- OUTSIDE RECORDS SUMMARY | 2017-06-29 16:24 | External Medical Summary Rpt | CCD ---
Author Author , VITO Organization [facility]O Address Unknown Phone Care Team Providers Care Ramp And Cargo Supervisor Name Role Phone ALFARIS MOH, ALFARIS Unavailable [...] Unavailable FARHAD JASMYNE, FARHAD Unavailable Unavailable JASMYNE [facility] Unavailable Unavailable INC, [facility] Unavailable Un[facility]PITAL P, [facility], Unavailable Unavailable [facility] WHIPPLE, WHIPPLE Unavailable Unavailable JABARI NAN, JABARI Unavailable Unavailable NAN FRANCIS IMT, FRANCIS Unavailable Unavailable IMT [facility] Unavailable Unavailable [facility], [facility] Ninoska Bronson MD, Unavailable Unavailable Ninoska Bronson MD HARSHAD RANDALL, HARSHAD RANDALL Unavailable Unavailable HARSHAD RANDALL, HARSHAD RANDALL Unavailable Unavailable [facility] Unavailable Unavailable URGENT TREAT, [facility] [place] Kasper H, Unavailable Unavailable [facility], Unavailable Unavailable [...] Unavailable Unavailable EQUIPME, [facility] Unavailable Unavailable EMERGENCY PHYS, [facility] THEODORE, Unavailable Unavailable THEODORE Javier Fields MD, Unavailable Unavailable Javier Fields MD [facility] # Unavailable Unavailable [id number], [facility] # [id number] Cornel Ramirez Unavailable Unavailable CARMINA PIEDRA, Cornel Ramirez III, MD Purpose Continuity of Care Document - 12-24-2012 through 2016 Problems Code Diagnosis DOS Provider Status C649 MALIGNANT 05-06-2017 [facility]M [facility] UNS KIDNEY GROUP EXCEPT RENL PELVIS E785 HYPERLIPIDE 05-06-2017 [facility] UNSPECIFIED GROUP R079 CHEST PAIN 05-06-2017 [facility] UNSPECIFIED PHYSICIANS GROUP Z8679 PERSONAL 05-06-2017 [facility] HISTORY OT PHYSICIANS DISEASES GROUP CIRCULATORY SYSTEM C641 MALIGNANT 04-25-2017 [facility] NEOPLASM RT PHYSICIANS, KIDNEY PLLC EXCEPT RENAL PELVIS C7901 SECONDARY 04-25-2017 [facility] MALIG PHYSICIANS, NEOPLASM RT PLLC KIDNEY & RENAL PELV R1032 LEFT LOWER 04-25-2017 [facility] QUADRANT PHYSICIANS, PAIN PLLC R1084 GENERALIZED 04-25-2017 [facility]BD[facility]AL [facility] PAIN [facility] R160 HEPATOMEGAL 04-25-2017 [facility] Y NOT MEDICAL ELSEWHERE IMAGING ASS CLASSIFIED U40983 PAIN IN 03-19-2017 [facility] LEFT FOOT MEDICAL IM[facility] ASS R011 CARDIAC 03-19-2017 [facility] UNSPECIFIED INC C7800 SECONDARY 02-06-2017 [facility] NEOPLASM OF INC UNSPECIFIED LUNG K5730 DIVERTICULO 02-06-2017 [place] SIS LG MEDICAL INTEST W/O IMAGING ASS PERF/ABSC W/O BLEED R590 LOCALIZED 02-06-2017 [place] ENLARGED MEDICAL LYMPH NODES IMAGING ASS R911 SOLITARY 02-06-2017 [facility] PULMONARY [facility]ICAL NODULE IMAGING ASS Z0389 ENCOUNTER 02-06-2017 [facility] SUSPCT DZ & INC COND RULED OUT E119 TYPE 2 02-03-2017 [facility] DIABETES [facility]ANS MELLITUS GROUP WITHOUT COMPLICATIO NS I10 ESSENTIAL 02-03-2017 [facility] PRIMARY [facility] HYPERTENSIO GROUP N M90174 OTHER LONG 02-03-2017 [facility] TERM PHYSICIANS CURRENT GROUP DRUG THERAPY G4733 OBSTRUCTIVE 01-19-2017 [facility] ADULT [facility] PEDIATRIC EQUIPME J40 BRONCHITIS 10-06-2016 [facility] NOT PHYSICIANS SPECIFIED GROUP ACUTE OR CHRONIC C7989 SECONDARY 09-22-2016 [facility] SPECIFIED SITES E118 TYPE 2 09-22-2016 [facility] DIABETES PHYSICIANS MELLITUS GROUP W/UNS COMPLICATIO NS E871 HYPO-OSMOLA 09-22-2016 [facility] LITY AND PHYSICIANS HYPONATREMI GROUP A K8590 ACUTE 09-22-2016 [facility] PANCREATITI PHYSICIANS S WO GROUP NECROSIS/IN FECTION UNSPEC Z720 TOBACCO USE 09-22-2016 [facility] K8580 OTHER ACUTE 09-21-2016 [facility] PH[facility]IANS, PANCREATITI PLLC S WO NECROSIS/IN FECTION R109 UNSPECIFIED 09-21-2016 [facility] PAIN IMAGING ASS R110 NAUSEA 09-21-2016 [facility] S32371 PERSONAL 09-21-2016 [place] HISTORY MEDICAL OTHER IMAGING ASS MALIGNANT NEOPLASM KIDNEY K5731 DIVERTICULO 09-03-2016 [facility] SIS LG PHYSICIANS, INTEST W/O PLLC PERF/ABSC W/BLEED R1031 RIGHT LOWER 09-03-2016 [place] [facility] PAIN IMAGING ASS G4713 RECURRENT 08-27-2016 [facility] HYPERSOMNIA PHYSICIANS GROUP J984 OTHER 08-27-2016 [facility] DISORDERS PHYSICIANS OF LUNG GROUP H527 UNSPECIFIED 07-28-2016 [facility]AH DISORDER OF REFRACTION Z23 ENCOUNTER 06-16-2016 [facility] FOR PHYSICIANS IMMUNIZATIO GROUP N M546 PAIN IN 05-13-2016 [place] THORACIC [facility] SPINE IMAGING ASS Z905 ACQUIRED 05-13-2016 [place] ABSENCE OF MEDICAL KIDNEY IMAGING ASS G4730 SLEEP APNEA 04-30-2016 [facility] UNSPECIFIED GROUP M7711 LATERAL 04-30-2016 [facility] EPICONDYLIT PHYSICIANS IS RIGHT GROUP ELBOW E875 HYPERKALEMI 04-24-2016 [facility] A PHYSICIANS GROUP 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 [place] ADRENAL MEDICAL GLAND IMAGING ASS UNSPECIFIED 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 [place] 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 C7970 SECONDARY 02-18-2016 [facility] NE[facility] P UNS ADRENAL GLAND J302 OTHER 02-18-2016 [facility] SEASONAL PH[facility]IANS ALLERGIC GROUP RHINITIS R918 OTHER 02-14-2016 [place] NONSPECIFIC MEDICAL ABNORMAL IMAGING ASS FINDING OF LUNG FIELD R739 HYPERGLYCEM 10-19-2015 [facility] PH[facility]ANS UNSPECIFIED GROUP Z5111 ENCOUNTER 10-10-2015 [facility] P TIC CHEMOTHERAP Y Z5181 ENCOUNTER 07-16-2015 [facility] THERAPEUTIC INC DRUG LEVEL MONITORING N281 CYST OF 06-29-2015 [place] KIDNEY MEDICAL ACQUIRED IMAGING ASS 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 [facility] 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 USE PHYSICIANS OF OPIATE GROUP ANALGESIC 1890 MALIGNANT 06-04-2015 [facility] KIDNEY INC EXCEPT PELVIS V5811 ENCOUNTER 06-04-2015 [facility] ANTINEOPLAS INC TIC CHEMOTHERAP Y V5869 LONG-TERM 05-15-2015 [facility] (CURRENT) PHYSICIANS USE OF GROUP OTHER MEDICATIONS 23191 OVERWEIGHT 04-23-2015 [facility] 4019 UNSPECIFIED 04-23-2015 [facility] ESSENTIAL PHYSICIANS HYPERTENSIO GROUP N 07036 DIVERTICULI 04-23-2015 [facility] TIS OF PHYSICIANS COLON GROUP 63624 DIVERTICULI 04-11-2015 [facility] TIS OF PHYSICIANS COLON WITH GROUP HEMORRHAGE 03688 ABDOMINAL 04-11-2015 [facility] PAIN, LEFT PHYSICIANS LOWER GROUP QUADRANT 09431 ABDOMINAL 04-11-2015 [facility] PAIN, PHYSICIANS PERIUMBILIC GROUP 13437 ABDOMINAL 04-11-2015 [facility] PAIN OTHER PHYSICIANS SPECIFIED GROUP SITE V1052 PERSONAL 04-11-2015 [facility] HISTORY OF PHYSICIANS MALIGNANT GROUP NEOPLASM OF KIDNEY 2559 UNSPECIFIED 04-06-2015 [place] DISORDER MEDICAL OF ADRENAL IMAGING ASS GLANDS 5180 PULMONARY 04-06-2015 [facility] COLLAPSE MEDICAL IMAGING ASS 41449 UNSPEC 04-06-2015 [place] VENTRAL MEDICAL LUIS W/O IMAGING ASS MENTION OBST/GANGRE N 7856 ENLARGEMENT 04-06-2015 [place] OF LYMPH MEDICAL NODES IMAGING ASS 34330 ABDOMINAL 04-06-2015 [facility] UNSPECIFIED INC SITE 72181 OTHER 04-06-2015 [place] NONSPECIFIC MEDICAL ABNORMAL IMAGING ASS FINDING OF LUNG FIELD 2724 OTHER AND 03-23-2015 [facility] UNSPECIFIED PHYSICIANS GROUP HYPERLIPIDE [place] V4573 ACQUIRED 02-28-2015 [place] ABSENCE OF MEDICAL KIDNEY IMAGING ASS 2357 NEOPLASM 02-07-2015 [facility]ACH BRONCHUS&STEFANI NG 7231 CERVICALGIA 01-25-2015 [facility] 7245 UNSPECIFIED 01-25-2015 [place] BACKACHE MEDICAL IMAGING ASS 20809 DIVERTICULO 01-24-2015 [facility] COLON URGENT TREAT 5770 ACUTE 01-24-2015 [facility] PANCREATITI [facility] URGENT TREAT 7242 LUMBAGO 01-24-2015 [facility] URGENT TREAT 51621 LEUKOCYTOSI 01-10-2015 [facility] S PHYSICIANS UNSPECIFIED GROUP 4011 ESSENTIAL 01-10-2015 [facility] HYPERTENSIO PHYSICIANS N, BENIGN GROUP 76764 COR 01-10-2015 [facility] ATHEROSLERO PHYSICIANS UNSPEC GROUP TYPE VESSEL LUMBEE/NONA T 7880 RENAL COLIC 01-09-2015 [facility] 7881 DYSURIA 01-09-2015 [facility] 16586 SOLITARY 01-09-2015 [facility] NODULE INC 4739 UNSPECIFIED 07-18-2014 [facility] EMERGENCY PHYS 69787 PAIN IN 07-18-2014 [facility], N EMERGENCY ANKLE AND PHYS FOOT 83203 TENOSYNOVIT 07-18-2014 [facility] IS OF FOOT N EMERGENCY AND ANKLE PHYS 5990 URINARY 06-16-2014 [facility] TRACT N EMERGENCY INFECTION PHYS SITE NOT SPECIFIED 7804 DIZZINESS 06-16-2014 [facility] AND N EMERGENCY GIDDINESS PHYS 80638 GENERALIZED 05-06-2014 HARSHAD RANDALL ANXIETY DISORDER 7248 OTHER 03-23-2014 HARSHAD RANDALL SYMPTOMS REFERABLE TO BACK 2374 NEOPLASM 02-21-2014 [facility] OTH&UNSPEC ENDOCRN GLANDS 7840 HEADACHE 02-21-2014 [facility] 09439 DIARRHEA 02-21-2014 HARSH[facility] RANDALL 2359 NEOPLASM 02-16-2014 [facility] BEHAVIOR INC OTH&UNSPEC RESP ORGN 5932 ACQUIRED 02-06-2014 [facility] CYST OF SHELIA KIDNEY 5939 UNSPECIFIED 02-06-2014 [facility] DISORDER SHELIA OF KIDNEY AND URETER 462 ACUTE 02-01-2014 [facility] RANDALL PHARYNGITIS 272.1 272.1 PURE 10-08-2013 [place] HYPERGLYCER [facility] 305.1 305.1 10-08-2013 [place] TOBACCO USE [facility] 577.0 577.0 ACUTE 10-08-2013 [facility] V10.53 V10.53 PER 10-08-2013 [facility] RENAL PELVIS V16.9 V16.9 10-08-2013 [facility] CY NOS V17.3 V17.3 FAM [facility]-08[facility] HEART DIS [facility] V18.0 V18.0 FAM 10-08-2013 [facility] MELLITUS [facility] 274.01 274.01 05-10-2013 [place] ACUTE G[facility] ARTHROPATHY 577.1 577.1 05-10-2013 [facility] CHRONIC [facility] PANCREATITI Hospital S 455.0 455.0 INT 02-10-2013 [place] HEMORRHOID [facility] W/O COMPL Hospital 562.10 562.10 02-10-2013 [place] DIVERTICULO [facility] SIS COLON Hospital (W/O MENT OF HEMORRHAGE) 569.3 569.3 02-10-2013 [place] RECTAL & [facility] ANAL [facility] HEMORRHAGE 789.00 789.00 02-10-2013 [place] ABDOMINAL [facility], [facility] UNSPECIFIED SITE 272.4 272.4 01-15-2013 [place] HYPERLIPIDE [facility] KEYON NEC/NOS Hospital 560.1 560.1 01-15-2013 [place] PARALYTIC [facility] ILEUS Hospital V45.73 V45.73 01-15-2013 [facility] ACQRD [facility] ABSENCE OF Hospital KIDNEY 789.06 789.06 12-24-2012 [place] ABDOMINAL [facility] PAIN, [facility] EPIGASTRIC C64.1 [facility] NEOPLASM OF RIGHT KIDNEY, EXCEPT RENAL PELVIS C64.9 [facility] NEOPLASM OF UNSP KIDNEY, EXCEPT [...] M77.50 OTHER ENTHESOPATH Y OF UNSPECIFIED FOOT N23 UNSPECIFIED RENAL COLIC N39.0 URINARY TRACT INFECTION, SITE NOT SPECIFIED R10.32 LEFT LOWER [facility] PAIN R10.9 UNSPECIFIED ABDOMINAL PAIN Z79.899 OTHER SNF (CURRENT) DRUG THERAPY Allergies, Adverse Reactions, Alerts Type Drug Allergy Adverse Reaction to Substance Substance Reaction Severity Penicillin U-OEYVXF-DBYI/THROAT Severe Clinical Alert Notifications Alert Diabetes: no [...] #5 BL 91 ET ES 68 05 06 30 30 00 [...] 50 8- 0- 00 07 MA ve NV 54 20 20 48 RT N 55 17 17 95 HC 9 49 PH L AR 1, MA 00 CY 0 MG #5 91 TA BL ET OM 60 05 30 30 00 UT Ac EP 50 -2 -2 .0 00 L- ti RA 53 3- 3- 00 07 MA ve ZO 95 20 20 48 RT LE 20 17 [address] AR MA 20 CY MG #5 91 CA PS UL E GA 53 05 30 00 UT Ac BA 74 -2 -2 .0 00 L- ti PE 60 3- 3- 00 07 MA ve NT 10 20 20 48 RT IN 10 17 17 95 5 52 PH 10 AR 0 MA MG CY CA #5 PS 91 UL E OX 00 01 17 90 30 00 UT Ac YC 40 -2 -2 .0 00 L- ti OD 60 3- 3- 00 02 MA ve ON 52 20 20 24 RT E- 30 17 17 04 AC 1 42 PH ET AR AM MA IN CY OP HE #5 N 91 10 -3 25 LO 68 05 03 13 30 00 UT Ac SA 64 -2 -2 .0 00 L- ti RT 50 3- 3- 00 07 MA ve AN 40 20 20 48 RT 75 17 17 95 PO 4 48 PH TA AR SS MA IU CY M 25 #5 91 MG TA B VA 54 05 03 13 30 00 UT Ac AV 45 -1 -1 .0 00 L- ti 80 5- 6- 00 07 MA ve TA 92 20 20 45 RT TI 51 17 17 53 N 0 95 PH SO AR DI MA UM CY 40 #5 91 MG TA B AL 16 01 17 30 30 00 UT Ac LO 71 -0 -0 .0 00 L- ti PU 40 1- 2- 00 07 MA ve RI 04 20 20 48 RT NO 10 17 17 54 L 7 55 PH 10 AR 0 MA MG CY TA #5 BL 91 ET ME 68 05 60 30 00 UT Ac TF 64 -0 -0 .0 00 L- ti OR 50 1- 2- 00 07 MA ve NV 54 20 20 48 RT N 55 17 17 54 HC 9 56 PH L AR 1, MA 00 CY 0 MG #5 91 TA BL ET CY 68 05 30 30 00 UT Ac CL 64 -0 -0 .0 00 L- ti OB 50 1- 2- 00 07 MA ve EN 51 20 20 48 RT ZA 89 17 17 54 VA 0 57 PH IN AR E MA 10 CY MG #5 91 TA BL ET FL 60 05 06 16 30 00 UT Ac UT 43 -0 -0 .0 00 L- ti IC 20 1- 2- 00 07 MA ve 26 20 20 48 RT ON 41 17 17 54 E 5 88 PH VA AR OP MA CY 50 #5 MC 91 G SP RA Y ES 68 04 30 30 00 WA Ac CI 64 -2 -0 .0 00 L- ti TA 50 8- 2- 00 07 MA ve LO 52 20 20 41 RT VA 05 17 17 81 AM 4 82 PH AR 20 MA CY MG #5 TA 91 BL ET LI 54 04 06 30 30 00 WA Ac SI 45 [...] N 91 10 -3 25 VA 54 04 05 30 30 00 WA [...] 50 7- 8- 00 07 MA ve NV 54 20 20 47 RT N 55 [...] N 91 10 -3 25 VA 54 03 04 30 30 00 WA Ac AV 45 -1 -1 .0 00 L- ti 80 4- 4- 00 07 MA ve TA 92 20 20 46 RT TI 51 17 17 08 N 0 72 PH SO AR DI MA UM CY 40 #5 91 MG TA B AL 16 02 03 30 30 00 [...] 50 4- 1- 00 07 MA ve NV 54 20 20 47 RT N 55 [...] #5 MC 91 G SP RA Y VA 00 02 03 30 30 00 [...] 50 3- 4- 00 07 MA ve NV 10 20 20 46 RT N 41 [...] 91 10 -3 25 VA 54 12 01 30 30 00 WA [...] 20 7- 7- 00 07 MA ve NV 75 20 20 46 RT N 81 [...] 0 RT 1 E- 30 16 16 NV AC 1 PH CH ET AR AE AM MA L IN CY S OP # HE N 10 10 05 -3 91 25 VA 54 01 02 2 30 30 WA 73 GA Ac AV 45 -0 -0 0. L- 94 IN ti 80 6- 5- 00 MA 01 EY ve TA 92 20 20 0 RT 6 TI 51 16 16 NV N 0 PH CH SO AR AE DI MA L UM CY S # 40 10 MG 05 91 TA B OM 60 01 02 2 30 30 WA 73 GA Ac EP 50 -0 -0 0. L- 94 IN ti RA 53 6- 5- 00 MA 01 EY ve ZO 95 20 20 0 RT 3 LE 20 16 [address] AR AE MA L 20 CY S # MG 10 CA 05 PS 91 UL E ES 68 01 02 2 30 30 WA 73 GA Ac CI 64 -0 -0 0. L- 94 IN ti TA 50 6- 5- 00 MA 01 EY ve LO 44 20 20 0 RT 4 VA 77 16 16 NV AM 0 PH CH AR AE 20 MA L CY S MG # TA 10 BL 05 ET 91 AT 51 01 02 2 30 30 WA 73 GA Ac EN 07 -0 -0 0. L- 94 IN ti OL 90 6- 5- 00 MA 01 EY ve OL 75 20 20 0 RT 7 96 16 16 NV 25 3 PH CH AR AE MG MA L CY S TA # BL ET 10 05 91 GE 31 01 02 2 60 30 WA 73 GA Ac MF 72 -0 -0 0. L- 94 IN ti IB 20 6- 5- 00 MA 01 EY ve RO 22 20 20 0 RT 5 ZI 50 16 16 NV L 5 PH CH 60 AR AE 0 MA L MG CY S # TA BL 10 ET 05 91 AL 16 01 02 2 30 30 WA 73 GA Ac LO 71 -0 -0 0. L- 94 IN ti PU 40 6- 5- 00 MA 01 EY ve RI 04 20 20 0 RT 2 NO 10 16 16 NV L 7 PH CH 10 AR AE [...] 20 0 RT 1 45 16 16 NV UL 0 PH CH TR AR AE A MA L TE CY S ST # ST 10 RI 05 PS 91 PA 51 01 1 No NT 07 -2 OP 90 4- Lo RA 05 20 ng ZO 12 14 er LE 0 Ac SO ti D ve DR 40 MG TA B ON 00 01 2 No DA 64 -2 NS 16 3- Lo ET 08 20 ng RO 02 14 er N 5 HC Ac L ti 4 ve MG /2 ML AL Ge 00 01 2 No mf 90 -2 ib 45 3- Lo ro 37 20 ng zi 96 14 er l 1 60 Ac 0M ti G ve Ta bl et KE 00 01 2 No TO 40 [...] Ac ti MG ve TA BL ET VA 00 01 1 No OT 00 -2 ON 80 3- Lo IX 92 20 ng 35 14 er IV 5 Ac 40 ti ve MG AL SO 00 01 1 No DI 40 -2 UM 97 3- Lo 98 20 ng CH 43 14 er LO 7 RI Ac DE ti ve 0. 9% SO STEFANI TI ON Sa 63 01 1 No li 80 [...] er -A 2 CE Ac TA ti NV ve NO PH EN 5- 32 5 [...] .4 ve ML SY RI NG E Sa 63 05 1 No li 80 [...] CBC w auto diff (06-29-2017 00:25) Automat = 84.3 82.2-97 complet ed 017 fl .8 ed erythro 00:25 cyte mean corpusc ular v Absolut = 0.5 0.1-1.0 complet e 017 K/mm3 ed monocyt 00:25 e count Finney % = 3.7 % 1.7-9.3 complet 017 ed 00:25 Automat 2 = 7.6 7.4-10. complet ed 017 fl 4 ed blood 00:25 platele t mean volume siva Blood = 237 142-424 complet platele 017 K/mm3 ed t count 00:25 Red = 5.12 4.6-6.2 complet blood 017 M/mm3 ed cell 00:25 count Automat = 15.0 11.5-17 complet ed 017 % .5 ed erythro 00:25 cyte distrib ution width Blood = 12.2 4.8-10. complet leukocy 017 K/MM3 8 ed glenna 00:25 count (number /volume ) Baso % = 0.5 % 0.1-2.0 complet 017 ed 00:25 Automat = 0.2 0.0-0.4 complet ed 017 K/mm3 [...] SQUARE METERS Comment: If this patient is -[place], then multiply the Comment: result by 1.210. Serum 2 = 3.4 1.3-3.2 complet globuli 017 gm/dL ed n 00:25 measure ment (mass/v olume) Serum = 435 74-106 complet or 017 mg/dL ed plasma 00:25 glucose measure ment (mas Comment: CRITICAL RESULTS Comment: RESULTS CALLED TO: Shelton ANDERSON 06/29/17 Jeferson Mcrae Comment: SERUM GROSSLY LIPEMIC Serum = 3.9 3.5-5.1 complet potassi 017 mmoL/L ed um 00:25 measure ment Lipase measurement (06-29-2017 00:25) Lipase = 526 73-393 complet measure 017 U/L ed ment 00:25 Comment: SERUM GROSSLY LIPEMIC Cardiac enzymes (06-29-2017 00:25) Serum = 1.3 0-4.0 complet or 017 U/L ed plasma 00:25 creatin e kinase MB (CK-M Comment: SERUM GROSSLY LIPEMIC Serum 2 < 0.5 0.0-3.6 complet or 017 ng/mL [...] Urine by Screen method (04-03-2017 14:15) Ampheta NEGATIV <1000 complet mine 017 E ed [Presen 14:15 ce] in Urine by Screen method Hydr POSITIV <50 Abnorma complet oxy 017 E l ed delta-9 14:15 tetrahy drocann abinol [Presen ce] in Unspeci fied specime n Drugs identified in Urine by Screen method (03-04-2017 13:30) Ampheta NEGATIV <1000 complet mine 017 E ed [Presen 13:30 ce] in Urine by Screen method Hydr POSITIV <50 Abnorma complet oxy 017 E l ed delta-9 13:30 tetrahy drocann abinol [Presen ce] in Unspeci fied specime n Drugs identified in Urine by Screen method (02-03-2017 13:00) Ampheta NEGATIV <1000 complet mine 017 E ed [Presen 13:00 ce] in Urine by Screen method Hydr POSITIV <50 Abnorma complet oxy 017 E [...] 014 mmoL/L ed SerPl-s 06:20 Cnc CO2 01-25-2 35 21.0-32 complet SerPl-s 014 mmoL/L .0 ed Cnc 06:20 Calcium 2 8.5 8.5-10. complet 014 mg/dL 1 ed SerPl-m 06:20 Cnc Prot 10-08-2 5.9 6.4-8.2 complet SerPl-m 014 gm/dL ed Cnc 06:20 Albumin 10-08-2 3.2 3.4-5.0 complet 014 gm/dL ed SerPl-m 06:20 Cnc Globuli 10-08-2 2.7 1.3-3.2 complet n 014 gm/dL ed Ser-mCn 06:20 c Albumin 10-08-2 1.2 UNK 1.1-1.8 complet /Glob 014 ed SerPl-m 06:20 Rto Bilirub 2 0.3 0.2-1.0 complet 014 mg/dL ed SerPl-m 06:20 Cnc AST 10-08- 13 U/L 15-37 complet SerPl-c 014 ed Cnc 06:20 ALT 77 U/L 12-78 complet SerPl-c 014 ed Cnc 06:20 ALP 175 U/L 50-136 complet SerPl-c 014 ed Cnc 06:20 CBC with AUTO DIFF (10-08-2013 06:20) WBC # 10-08-2 9.1 4.8-10. complet Bld 014 K/MM3 8 ed Auto 06:20 RBC # 10-08-2 4.90 4.6-6.2 complet Bld 014 M/mm3 ed Auto 06:20 Hgb 10-08-2 14.1 14.1-18 complet Bld-mCn 014 g/dL .0 ed c 06:20 Hct Fr 2 41.9 % 42.0-52 complet Bld 014 .0 ed 06:20 MCV RBC 2 85.5 fl 82.2-97 complet 014 .8 ed 06:20 MCH RBC 10-08-2 28.8 pg 27-31.2 complet Qn 014 ed Auto 06:20 MEAN 2 33.7 31.8-35 complet CORPUSC 014 g/dl .4 ed ULAR 06:20 HGB CONC RDW RBC 10-08-2 15.4 % 11.5-17 complet Auto 014 .5 ed 06:20 Platele 210 142-424 complet t Bld 014 K/mm3 ed Ql 06:20 Manual MEAN 7.7 fl 7.4-10. complet PLATELE 014 4 ed T 06:20 VOLUME Granulo 42.5 % 37.0-80 complet cytes 014 .0 ed Fr Bld 06:20 Auto LYMPH % 48.8 % 10-50 complet 014 ed 06:20 Monocyt 2 4.8 % 1.7-9.3 complet es Fr 014 ed Bld 06:20 Auto Eosinop 3.4 % 0.1-12. complet hil Fr 014 0 ed Bld 06:20 Auto Basophi 0.5 % 0.1-2.0 complet ls Fr 014 ed Bld 06:20 Auto Granulo 3.9 1.3-8.0 complet cytes # 014 K/mm3 ed Bld 06:20 Auto Lymphoc 4.5 0.7-4.5 complet ytes Fr 014 K/mm3 ed Bld 06:20 Auto Monocyt 10-08-2 0.4 0.1-1.0 complet es # 014 K/mm3 ed Bld 06:20 Auto Eosinop 2 0.3 0.0-0.4 complet hil # 014 K/mm3 [...] Fr 014 ed Bld 06:00 Auto Eosinop 2 3.2 % 0.1-12. complet hil Fr 014 0 ed Bld 06:00 Auto Basophi 2 0.5 % 0.1-2.0 complet ls Fr 014 ed Bld 06:00 Auto Granulo 10-07-2 3.6 1.3-8.0 complet cytes # 014 K/mm3 ed Bld 06:00 Auto Lymphoc 10-07-2 4.2 0.7-4.5 complet ytes Fr 014 K/mm3 [...] 014 mg/dL ed Bld-mCn 06:10 c BUN 01-23-2 10 7-18 complet Bld-mCn 014 mg/dL ed [...] ed Cnc 06:10 LIPASE (10-06-2013 06:10) LIPASE 01-23-2 2723 73-393 complet 014 U/L ed 06:10 CBC with AUTO DIFF (10-06-2013 06:10) WBC # 10-06-2 10.0 4.8-10. complet Bld 014 K/MM3 8 ed Auto 06:10 RBC # 10-06-2 5.19 4.6-6.2 complet Bld 014 M/mm3 ed Auto 06:10 Hgb 2 15.0 14.1-18 complet Bld-mCn 014 g/dL .0 ed c 06:10 Hct Fr 44.8 % 42.0-52 complet Bld 014 .0 ed 06:10 MCV RBC 86.3 fl 82.2-97 complet 014 .8 ed 06:10 MCH RBC 28.9 pg 27-31.2 complet Qn 014 ed Auto 06:10 MEAN 33.5 31.8-35 complet CORPUSC 014 g/dl .4 ed ULAR 06:10 HGB CONC RDW RBC 15.2 % 11.5-17 complet Auto 014 .5 ed 06:10 Platele 184 142-424 complet t Bld 014 K/mm3 ed Ql 06:10 Manual MEAN 7.2 fl 7.4-10. complet PLATELE 014 4 ed T 06:10 VOLUME Granulo 78.6 % 37.0-80 complet cytes 014 .0 ed Fr Bld 06:10 Auto LYMPH % 10-06-2 15.1 % 10-50 complet 014 ed 06:10 Monocyt 10-06-2 4.5 % 1.7-9.3 complet es Fr 014 ed Bld 06:10 Auto Eosinop 10-06-2 1.7 % 0.1-12. complet hil Fr 014 0 ed Bld 06:10 Auto Basophi 10-06-2 0.2 % 0.1-2.0 complet ls Fr 014 ed Bld 06:10 Auto Granulo 10-06-2 7.8 1.3-8.0 complet cytes # 014 K/mm3 ed Bld 06:10 Auto Lymphoc 10-06-2 1.5 0.7-4.5 complet ytes Fr 014 K/mm3 ed Bld 06:10 Auto Monocyt 10-06-2 0.4 0.1-1.0 complet es # 014 K/mm3 ed Bld 06:10 Auto Eosinop 10-06-2 0.2 0.0-0.4 complet hil # 014 K/mm3 ed Bld 06:10 Auto Basophi 10-06-2 0.0 0-0.2 complet ls # 014 K/MM3 [...] with AUTO DIFF (10-05-2013 11:15) WBC # 10-05- 11.5 4.8-10. complet Bld 014 K/MM3 8 [...] % 10-50 complet 014 ed 11:15 Monocyt 22-2 4.5 % 1.7-9.3 complet es Fr 014 ed Bld 11:15 Auto Eosinop 22-2 2.7 % 0.1-12. complet hil Fr 014 0 ed Bld 11:15 Auto Basophi 10-05-2 0.6 % 0.1-2.0 complet ls Fr 014 ed Bld 11:15 Auto Granulo 10-05-2 6.9 1.3-8.0 complet cytes # 014 K/mm3 ed Bld 11:15 Auto Lymphoc 10-05-2 3.7 0.7-4.5 complet ytes Fr 014 K/mm3 ed Bld 11:15 Auto Monocyt 22-2 0.5 0.1-1.0 complet es # 014 K/mm3 ed Bld 11:15 Auto Eosinop 10-05-2 0.3 0.0-0.4 complet hil # 014 K/mm3 ed Bld 11:15 Auto Basophi 10-05-2 0.1 0-0.2 complet ls # 014 K/MM3 ed Bld 11:15 Auto URINALYSIS/COMPLETE (10-05-2013 11:00) URINE 10-05-2 YELLOW YELLOW complet COLOR 014 ed 11:00 URINE 10-05-2 CLEAR CLEAR complet APPEARA 014 ed NCE 11:00 URINE 10-05-2 NEGATIV NEG complet GLUCOSE 014 E ed - 11:00 DIPSTIC K URINE 10-05-2 NEGATIV NEG complet BILIRUB 014 E ed IN - 11:00 DIPSTIC K URINE 10-05-2 NEGATIV NEG complet KETONE 014 E mg/dL ed 11:00 URINE 10-05-2 1.015 1.005-1 complet SPECIFI 014 UNK .030 ed C 11:00 GRAVITY URINE 10-05-2 1+ NEG complet BLOOD 014 ed 11:00 URINE 10-05-2 6.0 UNK 5.0-8.5 complet PH 014 ed 11:00 URINE 10-05-2 NEGATIV NEG complet PROTEIN 014 E mg/dL ed - 11:00 DIPSTIC K URINE 10-05-2 0.2 NEG complet UROBILI 014 E.U./dL ed [...] SerPl-m 013 gm/dL ed Cnc 12:10 Albumin 05-30-2 4.2 3.4-5.0 complet 013 gm/dL ed SerPl-m 12:10 Cnc Globuli 05-30-2 3.8 1.3-3.2 complet n 013 gm/dL ed Ser-mCn 12:10 c Albumin -30-2 1.1 UNK 1.1-1.8 complet /Glob 013 ed SerPl-m 12:10 Rto Bilirub -30-2 0.3 0.2-1.0 complet 013 mg/dL ed SerPl-m 12:10 Cnc AST -30-2 15 U/L 15-37 complet SerPl-c 013 ed Cnc 12:10 ALT 05-30-2 37 U/L 30-65 complet SerPl-c 013 ed [...] K/MM3 8 ed Auto 12:10 RBC # -30-2 5.52 4.6-6.2 complet Bld 013 M/mm3 ed [...] complet BLOOD 013 NTACT ed 12:10 URINE 30-2 6.0 UNK 5.0-8.5 complet PH 013 ed 12:10 URINE 02-10-2 NEGATIV NEG complet PROTEIN 013 E mg/dL ed - 12:10 DIPSTIC K URINE 30-2 0.2 NEG complet UROBILI 013 E.U./dL ed [...] S CELLS 12:10 LIPASE (01-15-2013 06:10) LIPASE 01-15-2 262 U/L 73-393 complet 013 ed 06:10 CBC with AUTO DIFF (01-15-2013 06:10) WBC # 05-04-2 9.2 4.8-10. complet Bld 013 K/MM3 8 ed Auto 06:10 RBC # 05-04-2 5.42 4.6-6.2 complet Bld 013 M/mm3 ed Auto 06:10 Hgb -04-2 15.9 14.1-18 complet Bld-mCn 013 g/dL .0 ed c 06:10 Hct Fr 01-15-2 48.1 % 42.0-52 complet Bld 013 .0 [...] 013 K/mm3 ed Ql 06:10 Manual MEAN -04-2 7.4 fl 7.4-10. complet PLATELE 013 4 [...] Bld-mCn 013 mg/dL ed c 06:10 Creat -03-2 1.3 0.8-1.3 complet SerPl-m 013 mg/dL ed Cnc 06:10 ESTIMAT -03-2 112 50-200 complet ED 013 ML/MIN ed CREATIN 06:10 INE CLEARAN CE GFR 01-14-2 61 Greater complet (ESTIMA 013 ML/MIN than ed ERICA) 06:10 60 Sodium 01-14-2 139 136-145 complet SerPl-s 013 mmoL/L ed Cnc 06:10 Potassi 03-2 4.2 3.5-5.1 complet um 013 mmoL/L ed SerPl-s 06:10 Cnc Chlorid 05-03-2 102 98-107 complet e 013 mmoL/L ed SerPl-s 06:10 Cnc CO2 05-03-2 31 21.0-32 complet SerPl-s 013 mmoL/L .0 ed Cnc 06:10 Calcium 05-03-2 9.1 8.5-10. complet 013 mg/dL 1 ed [...] g/dL .0 ed c 06:10 Hct Fr 03-2 49.4 % 42.0-52 complet Bld 013 .0 ed 06:10 MCV RBC 05-03-2 90.2 fl 82.2-97 complet 013 .8 ed 06:10 MCH RBC 05-03-2 30.1 pg 27-31.2 complet Qn 013 ed Auto 06:10 MEAN 05-03-2 33.4 31.8-35 complet CORPUSC 013 g/dl .4 ed ULAR 06:10 HGB CONC RDW RBC -03-2 15.5 % 11.5-17 complet Auto 013 .5 ed 06:10 Platele 05-03-2 219 142-424 complet t Bld 013 K/mm3 ed Ql 06:10 Manual MEAN 05-03-2 7.6 fl 7.4-10. complet PLATELE 013 4 ed T 06:10 VOLUME Granulo -03-2 71.3 % 37.0-80 complet cytes 013 .0 ed Fr Bld 06:10 Auto LYMPH % 05-03-2 21.9 % 10-50 complet 013 ed 06:10 Monocyt 05-03-2 4.3 % 1.7-9.3 complet es Fr 013 ed Bld 06:10 Auto Eosinop -03-2 2.2 % 0.1-12. complet hil Fr 013 [...] 013 mg/dL ed Bld-mCn 06:25 c BUN 02-2 12 7-18 complet Bld-mCn 013 mg/dL ed c 06:25 Creat 01-13-2 1.2 0.8-1.3 complet SerPl-m 013 mg/dL ed Cnc 06:25 ESTIMAT 01-13-2 121 50-200 complet ED 013 ML/MIN ed CREATIN 06:25 INE CLEARAN CE GFR 01-13- 67 Greater complet (ESTIMA 013 ML/MIN than ed ERICA) 06:25 60 Sodium 01-13- 139 136-145 complet SerPl-s 013 mmoL/L ed Cnc 06:25 Potassi 01-13-2 3.9 3.5-5.1 complet um 013 mmoL/L ed SerPl-s 06:25 Cnc Chlorid 103 98-107 complet e 013 mmoL/L ed SerPl-s 06:25 Cnc CO2 01-13- 28 21.0-32 complet SerPl-s 013 mmoL/L .0 ed Cnc 06:25 Calcium 8.8 8.5-10. complet 013 mg/dL 1 ed SerPl-m 06:25 Cnc LIPASE (01-13-2013 06:25) LIPASE 05-02-2 3011 73-393 complet 013 U/L ed 06:25 [...] 013 K/mm3 ed Bld 06:25 Auto Basophi -02-2 0.0 0-0.2 complet ls # 013 K/MM3 ed Bld 06:25 Auto URINALYSIS/COMPLETE (01-12-2013 10:16) URINE 01-12-2 YELLOW YELLOW complet COLOR 013 ed 10:16 URINE 01-12-2 CLEAR CLEAR complet APPEARA 013 ed NCE 10:16 URINE 01-12-2 NEGATIV NEG complet GLUCOSE 013 E ed - 10:16 DIPSTIC K URINE 01-12-2 NEGATIV NEG complet BILIRUB 013 E ed IN - 10:16 DIPSTIC K URINE 01-12-2 NEGATIV NEG complet KETONE 013 E mg/dL ed 10:16 URINE 01-12-2 Less 1.005-1 complet SPECIFI 013 than or .030 ed C 10:16 equal GRAVITY to 1.005 URINE 01-12-2 TRACE-I NEG complet BLOOD 013 NTACT ed 10:16 URINE 01-12-2 6.0 UNK 5.0-8.5 complet PH 013 ed 10:16 URINE 01-12-2 NEGATIV NEG complet PROTEIN 013 E mg/dL ed - 10:16 DIPSTIC K URINE 01-12-2 0.2 NEG complet UROBILI 013 E.U./dL ed NOGEN - 10:16 DIPSTIC K URINE 01-12-2 NEGATIV NEG complet NITRATE 013 E ed - 10:16 DIPSTIC K URINE --2 NEGATIV NEG complet LEUK 013 E ed ESTERAS 10:16 E URINE 01-12-2 OCC 0 complet RBC 013 rbc/hpf ed 10:16 URINE 05--2 3-5 O complet WBC 013 wbc/hpf ed 10:16 URINE 05-01-2 3-5 OCC complet SQUAMOU 013 #/hpf ed S CELLS 10:16 COMPREHENSIVE METABOLIC PANEL (01-12-2013 08:45) Glucose 01-12-2 115 74-106 complet 013 mg/dL ed Bld-mCn 08:45 c BUN 05-01-2 15 7-18 complet Bld-mCn 013 mg/dL ed [...] 013 mg/dL ed SerPl-m 08:45 Cnc AST 01-12- 32 U/L 15-37 complet SerPl-c 013 ed Cnc 08:45 ALT 45 U/L 30-65 complet SerPl-c 013 ed Cnc 08:45 ALP 128 U/L 50-136 complet SerPl-c 013 ed Cnc 08:45 Amylase SerPl-cCnc (01-12-2013 08:45) Amylase 214 U/L 25-115 complet 013 ed SerPl-c 08:45 Cnc LIPASE (01-12-2013 08:45) LIPASE 2092 73-393 complet 013 U/L ed 08:45 LIPID PROFILE (01-12-2013 08:45) Cholest 01-12-2 223 Less complet 013 mg/dL than ed SerPl-m 08:45 200 Cnc HDLc 25.0 40-60 complet SerPl-m 013 MG/DL ed Cnc 08:45 Trigl 464 30-200 complet SerPl-m 013 mg/dL ed Cnc 08:45 CBC with AUTO DIFF (01-12-2013 08:45) WBC # 05-2 14.7 4.8-10. complet Bld 013 K/MM3 8 ed Auto 08:45 RBC # 01-12-2 5.55 4.6-6.2 complet Bld 013 M/mm3 ed Auto 08:45 Hgb 01-12-2 16.7 14.1-18 complet Bld-mCn 013 g/dL .0 ed c 08:45 Hct Fr 2 48.3 % 42.0-52 complet Bld 013 .0 [...] ed Fr Bld 08:45 Auto LYMPH % 01-12-2 30.4 % 10-50 complet 013 ed 08:45 Monocyt 01-12-2 4.2 % 1.7-9.3 complet es Fr 013 ed Bld 08:45 Auto Eosinop 05-01-2 3.3 % 0.1-12. complet hil Fr 013 0 ed Bld 08:45 Auto Basophi 05-01-2 0.4 % 0.1-2.0 complet ls Fr 013 ed Bld 08:45 Auto Granulo 05--2 9.1 1.3-8.0 complet cytes # 013 K/mm3 [...] mg/dL 1 ed SerPl-m 07:55 Cnc Prot 04-12-2 7.8 6.4-8.2 complet SerPl-m 013 gm/dL ed Cnc 07:55 Albumin 12-24-2 3.9 3.4-5.0 complet 013 gm/dL ed SerPl-m 07:55 Cnc Globuli 12-24-2 3.9 1.3-3.2 complet n 013 gm/dL ed Ser-mCn 07:55 c Albumin 12-24-2 1.0 UNK 1.1-1.8 complet /Glob 013 ed SerPl-m 07:55 Rto Bilirub 12-24-2 0.4 0.2-1.0 complet 013 mg/dL ed SerPl-m 07:55 Cnc AST 12-24-2 26 U/L 15-37 complet SerPl-c 013 ed Cnc 07:55 ALT 12-24-2 48 U/L 30-65 complet SerPl-c 013 ed Cnc 07:55 ALP 12-24-2 133 U/L 50-136 complet SerPl-c 013 ed Cnc 07:55 Amylase SerPl-cCnc (12-24-2012 07:55) Amylase 12-24-2 79 U/L 25-115 complet 013 ed SerPl-c 07:55 Cnc LIPASE (12-24-2012 07:55) LIPASE 12-24-2 242 U/L 73-393 complet 013 ed 07:55 CBC with AUTO DIFF (12-24-2012 07:55) WBC # 12-2 11.8 4.8-10. complet Bld 013 K/MM3 8 ed Auto 07:55 RBC # 12-2 5.81 4.6-6.2 complet Bld 013 M/mm3 ed [...] ed ULAR 07:55 HGB CONC RDW RBC 04-12-2 14.9 % 11.5-17 complet Auto 013 .5 ed 07:55 Platele 04-12-2 240 142-424 complet t Bld 013 K/mm3 ed Ql 07:55 Manual MEAN 04-12-2 7.3 fl 7.4-10. complet PLATELE 013 4 [...] Bld 07:55 Auto URINALYSIS/COMPLETE (12-24-2012 07:36) URINE -12-2 YELLOW YELLOW complet COLOR 013 ed 07:36 URINE -12-2 CLEAR CLEAR complet APPEARA 013 ed NCE 07:36 URINE -12-2 NEGATIV NEG complet GLUCOSE 013 E ed - 07:36 DIPSTIC K URINE -12-2 NEGATIV NEG complet BILIRUB 013 E ed IN - 07:36 DIPSTIC K URINE -12-2 NEGATIV NEG complet KETONE 013 E mg/dL ed 07:36 URINE -12-2 1.020 1.005-1 complet SPECIFI 013 UNK .030 ed C 07:36 GRAVITY URINE 1+ NEG complet BLOOD 013 ed 07:36 URINE 6.0 UNK 5.0-8.5 complet PH 013 ed 07:36 URINE NEGATIV NEG complet PROTEIN 013 E mg/dL ed - 07:36 DIPSTIC K URINE 0.2 NEG complet UROBILI 013 E.U./dL ed NOGEN - 07:36 DIPSTIC K URINE NEGATIV NEG complet NITRATE 013 E ed - 07:36 DIPSTIC K URINE NEGATIV NEG complet LEUK 013 E ed ESTERAS 07:36 E URINE 10-20 0 complet RBC 013 rbc/hpf ed 07:36 URINE OCC O complet WBC 013 wbc/hpf ed 07:36 URINE OCC OCC complet SQUAMOU 013 #/hpf ed S CELLS 07:36 Procedures Procedure [place] [address] [place] [facility] ABDOMEN & 7 MEDICAL PELVIS IMAGING W/O ASS CONTRAST MATERIAL ECHO 58748 [facility] JOHANSEN TTHRC R-T [facility] 2D INC INC W/WOM-MOD E COMPL SPEC&COLR D RADEX 25688 [facility] JOHANSEN FOOT 7 [facility] COMPLETE INC INC MINIMUM [address] [place] [address] EL[facility] JOHANSEN UREA 7 [facility] [place] [address] EL[facility] JOHANSEN ABDOMEN & 7 [facility] PELVIS INC INC W/CONTRAS T MATERIAL LOCM Q9967 ELENO AMBULATOR [phone] 7 [facility] Y SURGERY MG/ML INC CENTER, IODINE L CONCENTRA TION PER ML COLLECTIO 52258 EL[facility] JOHANSEN N VENOUS 7 [facility] BLOOD INC INC VENIPUNCT URE CT THORAX 56125 EL[facility] JOHANSEN 7 [facility] W/CONTRAS INC INC T MATERIAL CREATININ 34539 EL[facility] JOHANSEN E BLOOD 7 [facility] INC INC CONTINUOU E0601 GAYATHRI TRINH S 7 HOME [...] AIRWAY EQUIPME EQUIPME PRESSURE DEVICE DRUG TEST 13552 ELENO JOHANSEN PRSMV 7 [facility] QUAL DIR INC INC OPTICAL OBS PER DAY CONTINUOU E0601 GAYATHRI Kwon 7 HOME HOME POSITIVE MEDICAL MEDICAL AIRWAY EQUIPME EQUIPME PRESSURE DEVICE DRUG TEST 76701 ELENO JOHANSEN PRSMV 7 [facility] QUAL DIR INC INC OPTICAL OBS PER DAY CONTINUOU E0601 GAYATHRI Kwon 7 HOME HOME POSITIVE MEDICAL MEDICAL AIRWAY EQUIPME EQUIPME PRESSURE DEVICE COMPREHEN 44947 ELENO JOHANSEN SIVE 7 [facility] METABOLIC INC INC PANEL COLLECTIO 35879 ELENO JOHANSEN N VENOUS 7 [facility] BLOOD INC INC VENIPUNCT URE HEMOGLOBI 64939 ELENO TAYLORON N 7 [facility] GLYCOSYLA INC INC ERICA A1C CONTINUOU E0601 GAYATHRI TRINH S 7 HOME HOME POSITIVE MEDICAL MEDICAL AIRWAY EQUIPME EQUIPME PRESSURE DEVICE HOSPITAL [address] [facility] 7 PHYSICIAN DAY S GROUP MANAGEMEN T 30 MIN/< SBSQ [address]3960 [place] [address] PHYSICIAN CARE/DAY S GROUP 15 MINUTES FINAL G9551 NIVIA ROGER REPR ABD 7 MEDICAL IMAG STS IMAGING W/O ASS INCIDNT FND LES NTD: FINAL G9638 NIVIA ROGER REPORTS 7 MEDICAL W/O DOC IMAGING 1/[place] [address] [facility]OGER ABDOMEN & 7 MEDICAL PELVIS IMAGING W/O ASS CONTRAST MATERIAL INITIAL [address] [place] [address] PHYSICIAN CARE/DAY S GROUP 50 MINUTES CONTINUOU E0601 GAYATHRI TRINH S 7 HOME HOME POSITIVE MEDICAL MEDICAL AIRW[place] [address] N[facility]OGER ABDOMEN & 7 MEDICAL PELVIS IMAGING W/O ASS CONTRAST MATERIAL DRUG TST G0477 ELENO JOHANSEN PRESUMP;C 6 [facility] PBL BEING INC INC READ DC OPT OBV ONLY DRUG TEST G0481 ELENO JOHANSEN DEFINITV [address] [facility] [address] [address] ID INC INC METH P DAY 8-[address] [place] [address] NIVIA SALAS ABDOMEN & 6 MEDICAL PELVIS IMAGING W/O ASS CONTRAST MATERIAL POLYSOM 29550 [facility] 6/>YRS 6 PHYSICIAN SLEEP S GROUP W/CPAP 4/> ADDL DEMETRIUS ATTND CONTINUOU E0601 GAYATHRI TRINH S 6 HOME HOME POSITIVE MEDICAL MEDICAL AIRWAY EQUIPME EQUIPME PRESSURE DEVICE DRUG TEST G0481 ELENO TAYLORON DEFINITV [address] [address] ID INC INC METH P DAY 8-14 DRUG CL OPHTH 84162 [facility] 6 AYAH AYAH XM&EVAL COMPRE NEW PT 1/> VST TUBING A7037 GAYATHRI RAMONRELL USED WITH 6 HOME HOME POSITIVE MEDICAL MEDICAL AIRWAY EQUIPME EQUIPME PRESSURE DEVICE FILTER A7039 GAYATHRI GAYATHRI NON 6 HOME HOME DISPBL MEDICAL MEDICAL USED EQUIPME EQUIPME W/POS ARWAY PRESS DEVICE CONTINUOU E0601 GAYATHRI GAYATHRI S 6 HOME HOME POSITIVE MEDICAL MEDICAL AIRWAY EQUIPME EQUIPME PRESSURE DEVICE FULL FACE A7030 GAYATHRI RAMONRELL MASK 6 HOME HOME USED MEDICAL MEDICAL W/POS EQUIPME EQUIPME 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 A7038 GAYATHRI GAYATHRI DISPBL 6 HOME HOME USED MEDICAL MEDICAL W/POS EQUIPME EQUIPME ARWAY PRESSURE DEVICE HEADGEAR A7035 GAYATHRI GAYATHRI USED 6 HOME HOME W/POSITIV MEDICAL MEDICAL E AIRWAY EQUIPME EQUIPME PRESSURE DEVICE HUMDIFIR E0562 GAYATHRI RAMONRELL HEATED 6 HOME HOME USED MEDICAL MEDICAL W/POS EQUIPME EQUIPME ARWAY PRESSURE DEVICE DRUG TEST G0481 ELENO TAYLORON DEFINITV [address] [address] ID INC INC METH P DAY 8-14 DRUG CL SLEEP STD 10-17-201 27247 ELENO JOHANSEN AIRFLOW 6 [facility] HRT INC INC RATE&O2 SAT EFFORT UN[place] ADM 22484 [facility] PRQ ID 6 PHYSICIAN JASMYNE SUBQ/IM S GROUP NJXS 1 VACCINE IIV 91929 [facility] ADJUVANTE 6 PHYSICIAN JASMYNE D VACCINE S GROUP FOR INTRAMUSC ULAR USE DRUG TST G0477 ELENO JOHANSEN PRESUMP;C 6 [facility] PBL BEING INC INC READ DC OPT OBV ONLY TECHNETIU A9503 ELENO Arthur TC-99M 6 [facility] MEDRONATE INC INC DX UP TO 30 MCI BONE 60907 ELENO JOHANSEN &/JOINT 6 [facility] IMAGING INC INC WHOLE BODY BLOOD 28457 ELENO JOHANSEN COUNT 6 [facility] COMPLETE INC INC AUTO&AUTO DIFRNTL WBC COMPREHEN 67704 ELENO JOHANSEN SIVE 6 [facility] METABOLIC INC INC PANEL COLLECTIO 11977 ELENO JOHANSEN N VENOUS 6 [facility] BLOOD INC INC VENIPUNCT URE DRUG TST G0477 ELENO JOHANSEN PRESUMP;C 6 [facility] PBL BEING INC INC READ DC OPT OBV ONLY DRUG TEST G0481 ELENO JOHANSEN DEFINITV [address] ID INC INC METH P DAY 8-14 DRUG CL COMPREHEN 53840 ELENO JOHANSEN SIVE 6 [facility] [place] [address] [place] ALL THORACIC 6 MEDICAL SPINE W/[place] [address] [place] [facility] ALL ABDOMEN & 6 MEDICAL PELVIS IMAGING W/O ASS CONTRAST MATERIAL THERAPEUT 46067 [facility] IC 6 PHYSICIAN JASMYNE PROPHYLAC S GROUP TIC/DX INJECTION SUBQ/IM INJECTION J1100 [facility] 6 PHYSICIAN JASMYNE DEXAMETHO S GROUP SONE SODIUM PHOSPHATE 1 MG DRUG TEST G0481 ELENO JOHANSEN DEFINITV [address] [address] [address] ID INC INC METH P DAY 8-14 DRUG CL DRUG TST G0477 ELENO JOHANSEN PRESUMP;C 6 [facility] PBL BEING INC INC READ DC OPT OBV ONLY DRUG TST G0477 ELENO JOHANSEN PRESUMP;C 6 [facility] PBL BEING INC INC READ DC OPT OBV ONLY DRUG TEST G0481 ELENO JOHANSEN DEFINITV [address] [facility] [address] ID INC INC METH P DAY 8-14 DRUG CL UNCLASSIF J3490 ELENO JOHANSEN IED DRUGS 6 [facility] INC INC BLOOD 65444 ELENO JOHANSEN COUNT 6 [facility] COMPLETE INC INC AUTO&[place] [address] ELENO JOHANSEN THYROID 6 [facility] STIMULATI INC INC [place] [place] THORAX 55380 [place] ALL 6 MEDICAL W/CONTRAS IMAGING T ASS MATERIAL LOCM Q9967 ELENO JOHANSEN [phone] 6 [facility] MG/ML INC INC IODINE CONCENTRA TION PER ML COMPREHEN 62850 ELENO JOHANSEN SIVE 6 [facility] METABOLIC INC INC PANEL COLLECTIO 61409 ELENO JOHANSEN N VENOUS 6 [facility] [place] [address] ELENO JOHANSEN UREA 6 [facility] NITROGEN INC INC QUANTITAT MENG CREATININ 65261 ELENO ELENO E BLOOD 6 [facility] INC INC UNCLASSIF J3490 ELENO TAYL[place]ON IED DRUGS 6 [place] [address] ELENO TAYLORON ABDOMEN & 6 [facility] PELVIS INC INC W/CONTRAS T MATERIAL CT THORAX 66973 ELENO JOHANSEN 6 [facility] W/CONTRAS INC INC T MATERIAL LOCM Q9967 ELENO JOHANSEN [phone] 6 [facility] MG/ML INC INC IODINE CONCENTRA TION PER ML COMPREHEN 58530 ELENO JOHANSEN SIVE 6 [facility] METABOLIC INC INC PANEL BLOOD 04203 ELENO JOHANSEN COUNT 6 [facility] COMPLETE INC INC AUTO&[place] [address] EL[facility] JOHANSEN INFUSION 6 [facility] THERAPY/P INC INC ROPHYLAXI S /DX 1ST TO 1 HR BLOOD 37106 ELENO ELENO COUNT 6 [facility] COMPLETE INC INC AUTO&AUTO DIFRNTL WBC INJECTION J9299 EL[facility] JOHANSEN 6 [facility] NIVOLUMAB INC INC 1 MG BLOOD 22008 ELENO JOHANSEN COUNT 6 [facility] COMPLETE INC INC AUTO&AUTO DIFRNTL WBC CHEMOTX 83736 ELENO ELENO ADMN IV 6 [facility] NFS TQ UP INC INC 1 HR SBST/DRUG BASIC 55450 ELENO JOHANSEN METABOLIC 6 [facility] PANEL INC INC CALCIUM TOTAL CT THORAX 40705 [place] ALL 5 MEDICAL W/[place] [address] [place] ALL ABDOMEN & 5 MEDICAL PELVIS IMAGING W/CONTRAS ASS T MATERIAL CHEMOTX 92516 ELENO JOHANSEN ADMN IV 5 [facility] NFS TQ UP INC INC 1 HR SBST/DRUG COMPREHEN 99915 ELENO JOHANSEN SIVE 5 [facility] METABOLIC INC INC PANEL BLOOD 55842 ELENO JOHANSEN COUNT 5 [facility] COMPLETE INC INC AUTO&AUTO DIFRNTL WBC CHEMOTX 00160 ELENO JOHANSEN ADMN IV 5 [facility] NFS TQ UP INC INC 1 HR SBST/DRUG INJECTION C9453 ELENO ELENO 5 [facility] NIVOLUMAB INC INC 1 MG BLOOD 48752 ELENO JOHANSEN COUNT 5 [facility] COMPLETE INC INC AUTO&AUTO DIFRNTL WBC IM ADM 82543 [facility] PRQ ID 5 PHYSICIAN JASMYNE SUBQ/IM S GROUP NJXS 1 VACCINE IIV3 22902 [facility] VACCINE 5 PHYSICIAN JASMYNE SPLIT S GROUP VIRUS 0.5 ML DOSAGE IM USE CHEMOTX 12957 ELENO JOHANSEN ADMN IV 5 [facility] NFS TQ UP INC INC 1 HR SBST/DRUG COLLECTIO 09368 ELENO JOHANSEN N VENOUS 5 [facility] BLOOD INC INC VENIPUNCT URE BLOOD 94526 ELENO JOHANSEN COUNT 5 [facility] COMPLETE INC INC AUTO&AUTO DIFRNTL WBC COMPREHEN 04564 ELENO JOHANSEN SIVE 5 [facility] METABOLIC INC INC PANEL LOCM Q9967 ELENO JOHANSEN [phone] 5 [facility] MG/ML INC INC IODINE CONCENTRA TION PER ML CT THORAX 46231 ELENO ELENO 5 [facility] W/[place] [address] EL[facility] JOHANSEN ABDOMEN 5 [facility] W/CONTRAS INC INC T MATERIAL CHEMOTX 81840 ELENO JOHANSEN ADMN IV 5 [facility] NFS TQ UP INC INC 1 HR SBST/DRUG BLOOD 47629 ELENO JOHANSEN COUNT 5 [facility] COMPLETE INC INC AUTO&AUTO DIFRNTL WBC BLOOD 16963 ELENO JOHANSEN COUNT 5 [facility] COMPLETE INC INC AUTO&AUTO DIFRNTL WBC CHEMOTX 40778 ELENO JOHANSEN ADMN IV 5 [facility] NFS TQ UP INC INC 1 HR SBST/DRUG COMPREHEN 77705 ELENO JOHANSEN SIVE 5 [facility] METABOLIC INC INC PANEL CHEMOTX 75532 ELENO JOHANSEN ADMN IV 5 [facility] NFS TQ UP INC INC 1 HR SBST/DRUG BLOOD 96351 ELENO JOHANSEN COUNT 5 [facility] COMPLETE INC INC AUTO&AUTO DIFRNTL WBC BLOOD 40647 ELENO JOHANSEN COUNT 5 [facility] COMPLETE INC INC AUTO&AUTO DIFRNTL WBC CHEMOTHER 77475 ELENO JOHANSEN APY ADMN 5 [facility] IV INC INC INFUSION TQ EA HR COMPREHEN 28493 ELENO JOHANSEN SIVE 5 [facility] METABOLIC INC INC PANEL COLLECTIO 52635 ELENO JOHANSEN N VENOUS 5 [facility] BLOOD INC INC VENIPUNCT URE CHEMOTX 65174 ELENO JOHANSEN ADMN IV 5 [facility] NFS TQ UP INC INC 1 HR SBST/DRUG CT THORAX 09149 ELENO JOHANSEN 5 [facility] W/CONTRAS INC INC T MATERIAL LOCM Q9967 ELENO JOHANSEN [phone] 5 [facility] MG/ML INC [place] [address] ELENO JOHANSEN ABDOMEN & 5 [facility] PELVIS [place] [address] ELENO JOHANSEN AMYLASE 5 [facility] INC INC COMPREHEN 04243 ELENO JOHANSEN SIVE 5 [facility] METABOLIC INC INC PANEL COLLECTIO 70533 ELENO JOHANSEN N VENOUS 5 [facility] [place] [address] ELENO JOHANSEN LIPASE 5 [facility] INC INC BLOOD 46955 ELENO JOHANSEN COUNT 5 [facility] COMPLETE INC INC AUTO&AUTO DIFRNTL WBC BLOOD 67752 ELENO JOHANSEN COUNT 5 [facility] COMPLETE INC INC AUTO&AUTO DIFRNTL WBC COLLECTIO 88025 ELENO JOHANSEN N VENOUS 5 [facility] BLOOD INC INC VENIPUNCT URE COMPREHEN 47687 ELENO JOHANSEN SIVE 5 [facility] [place] [address] ELENO JOHANSEN ERYTHROPO 5 [facility] [place] [address] [place] ABDOMEN & 5 MEDICAL SHELIA PELVIS IMAGING W/O ASS CONTRAST MATERIAL [facility]OSP[facility] [address] [facility] DISCHAR[facility] 5 CARE R H DAY ASSOCIATE MANAGEMEN S T 30 MIN/< SBSQ 77230 [facility] 5 CARE R H CARE/DAY ASSOCIATE 15 S MINUTES INITIAL 77048 [facility] TOD INPATIENT 5 PHYSICIAN CONSULT S GROUP NEW/ESTAB PT 55 MIN INITIAL 99168 [facility] 5 CARE R H CARE/DAY ASSOCI[place] [address] [place] [address] [place] ALL ABDOMEN & 5 MEDICAL PELVIS IMAGING W/O ASS CONTRAST MATERIAL RADEX 10634 ELENO JOHANSEN SPINE 5 [facility] CERVICAL INC INC 4 OR 5 VIEWS RADEX 46408 ELENO JOHANSEN SPINE 5 [facility] LUMBOSACR INC INC AL MINIMUM 4 VIEWS HOSPITAL 85451 [facility] 5 CARE R H DAY ASSOCIATE MANAGEMEN S T 30 MIN/< SBSQ 72897 [facility] 5 PHYSICIAN CARE/DAY S GROUP [address] THORAX 49424 [place] W/O 5 MEDICAL SHELIA CONTRAST IMAGING MATERIAL ASS INITIAL 57386 [facility] 5 CARE R H CARE/DAY ASSOCIATE 50 S MINUTES INITIAL 75917 [facility] INPATIENT 5 PHYSICIAN CONSULT S GROUP NEW/ESTAB [place] [address] [place] [address] [place] ABDOMEN & 5 MEDICAL SHELIA PELVIS IMAGING W/CONTRAS ASS T MATERIAL ECG 61169 [facility] 4 JOSE F IMT ECG EMERGENCY W/LEAST PHYS 12 LDS I&R ONLY LIPID 60097 [facility]SH[facility] RANDALL HARSHAD RANDALL PANEL 4 URINLS 44314 [facility] HARSHAD RANDALL DIP 4 STICK/TAB LET REAGNT NON-AUTO MICRSCPY METANEPHR 52032 [facility] 4 DIAGNOSTI DIAGNOSTI CS CS LOCM Q9967 ELENO JOHANSEN [phone] 4 [facility] MG/ML INC INC IODINE CONCENTRA TION PER ML CT THORAX 88835 ELENO JOHANSEN 4 [facility] W/[place] [address] DANA DANA ABDOMEN & 4 SHELIA SHELIA PELVIS W/O CONTRAST MATERIAL Encounters Encounter Start End Date Code Location Performer Type Date OFFICE 06886 [facility] 7 7 PHYSICIAN A T NEW 60 S GROUP MINUTES EMERGENCY 24956 DANAY LLAMAS DEPT 7 7 PHYSICIAN VISIT S, PLLC [facility]IGH [facility]VERITY& THREAT [facility] - 7 7 [facility] T [facility] - 7 7 [facility] INC T OFFICE 17688 [facility] 7 7 PHYSICIAN T VISIT S GROUP 15 MINUTES [facility] - 7 7 [facility] INC T OFFICE 26484 [facility] 7 7 PHYSICIAN T VISIT S GROUP 25 MINUTES OFFICE 11027 [facility] 7 7 PHYSICIAN T VISIT S GROUP 25 MINUTES [facility] - 7 7 [facility] T OFFICE 43864 [facility] 7 7 PHYSICIAN T VISIT S GROUP 25 MINUTES [facility] - 7 7 [facility] OUTPATIEN INC T OFFICE 97158 [facility] OUTPAT[facility] 7 7 PHYSICIAN T VISIT S GROUP 25 MINUTES [facility] - 7 7 [facility] INPATIENT INC EMERGENCY 94206 DANAY LLAMAS DEPT 7 7 PHYSICIAN VISIT S, PLLC HIGH SEVERITY& THREAT [facility] OFFICE 65665 ELENO SMITH OUTPATIEN 6 6 [facility] T VISIT 5 HOSPITAL MINUTES [facility] - 6 6 [facility] OUTPATIEN INC T OFFICE 97819 [facility] OUTPAT[facility]EN 6 6 PHYSICIAN T VISIT S GROUP 15 MINUTES EMERGENCY 10775 DANAY WHIPPLE DEPT 6 6 PHYSICIAN VISIT S, PLL HIGH SEVERITY& THREAT [facility] - 6 6 [facility] OUTPATIEN INC [facility] - 6 6 [facility] OUTPATIEN INC T OFFICE 95571 [facility] OUT[facility] 6 6 PHYSICIAN JASMYNE T VISIT S GROUP 15 MINUTES [facility]OSP[facility] - 6 6 [facility]IEN INC [facility] - 6 6 [facility]PATIEN [facility] - 6 6 [facility] OUTPATIEN INC T OFFICE 99861 [facility] OUT[facility] 6 6 PHYSICIAN JASMYNE T VISIT S GROUP 15 MINUTES OFFICE 63283 EL[facility] SMITH OUTPATIEN 6 6 [facility] 10 P MINUTES HOSPITAL [facility] - 6 6 [facility] OUTPATIEN [facility] - 6 6 [facility] OUTPATIEN [facility] T OFFICE 57507 ELENO SMITH OUTPATIEN 6 6 [facility] 15 P MINUTES OFFICE 42679 [facility] OUT[facility] 6 6 PHYSICIAN JASMYNE T VISIT S GROUP 15 MINUTES [facility]OSP[facility] - 6 6 [facility] - 6 6 [facility]EN [facility] T OFFICE 36741 [facility] OUTPATIEN 6 6 PHYSICIAN JASMYNE T VISIT 5 S GROUP MINUTES EMERGENCY 92924 DANAY LLAMAS DEPT 6 6 PHYSICIAN JASMYNE VISIT S, [facility] HIGH SEVERITY& THREAT [facility] - 6 6 [facility] OUTPATIEN INC T OFFICE 48103 [facility] OUT[facility] 6 6 PHYSICIAN JASMYNE T VISIT S GROUP 15 MINUTES [facility] - 6 6 [facility] OUTPATIEN INC T OFFICE 71544 [facility] OUT[facility] 6 6 PHYSICIAN JASMYNE T VISIT S GROUP 10 MINUTES [facility] - 6 6 [facility]IEN INC T OFFICE 06480 [facility] 6 6 PHYSICIAN JASMYNE T VISIT S GROUP 15 MINUTES OFFICE 46718 [facility] OUT[facility] 6 6 PHYSICIAN JASMYNE T VISIT S GROUP 10 MINUTES OFFICE 38828 [facility] SMITH OUTPATIEN 6 6 [facility] VISIT [facility] 10 P MINUTES OFFICE 60016 [facility] OUT[facility]EN 6 6 PHYSICIAN JASMYNE T VISIT S GROUP 10 MINUTES [facility] - 6 6 [facility]PATIEN INC [facility] - 6 6 [facility]PATIEN INC T OFF[facility] 15262 [facility] SMITH OUTPATIEN 6 6 [facility] 10 P MINUTES [facility]OSP[facility] - 6 6 [facility] - 6 6 [facility] OUTPATIEN INC T OFFICE 84699 [facility] 6 6 PHYSICIAN JASMYNE T VISIT S GROUP 10 MINUTES [facility] - 6 6 [facility]EN [facility] OFFICE 62622 [facility] SMITH OUTPATIEN 6 6 [facility] 10 P MINUTES OFFICE 22321 [facility] SMITH OUTPATIEN 6 6 [facility] 10 P MINUTES OFFICE 69907 [facility] 6 6 PHYSICIAN JASMYNE T VISIT S GROUP 15 MINUTES [facility] - 6 6 [facility] OUTPATIEN INC T OFFICE 68318 [facility] MSITH OUTPATIEN 5 5 [facility] 10 P MINUTES OFFICE 17309 [facility] 5 5 PHYSICIAN JASMYNE T VISIT S GROUP 10 MINUTES [facility] - 5 5 [facility] - 5 5 [facility] OUTPATIEN INC T OFFICE 45752 [facility] SMITH OUTPATIEN 5 5 [facility] 5 HOSPITAL MINUTES P [facility] - 5 5 [facility] INC T OFFICE 36165 [facility] 5 5 PHYSICIAN JASMYNE T VISIT S GROUP 10 MINUTES OFFICE 40735 [facility] SMITH [facility] P [facility] 22981 [facility] 5 [facility] JASMYNE T [facility]ISIT S GROUP 25 MINUTES [facility] T OFFICE 19542 [facility] MINUT[facility] P OFFICE 88710 [facility] 5 5 [facility] JASMYNE T VISIT S GROUP 10 MINUTES [facility] T OFFICE 35879 [facility] MINUTES P OFFICE 94882 [facility] 5 5 [facility]YSIC[facility] JASMYNE T VISIT S GROUP 15 MINUTES OFFICE 72305 [facility] 10 P MINUT[facility] OFFICE 00792 [facility] T [facility]IS[facility] S GROUP 15 MINUTES [facility] - 5 5 [facility] T OFFICE 04094 [facility] 5 5 [facility] T [facility]ISIT S GROUP 15 MINUTES [facility] - 5 5 [facility] INC T OFFICE 86271 [facility] 5 5 PHYSICIAN JASMYNE T [facility]ISIT S GROUP 15 MINUTES [facility] - 5 5 [facility] INC T OFFICE 06744 [facility] 5 5 [facility] 10 P MINUT[facility] EMERGENCY 03880 [facility] DEPT 5 5 [facility] 90030 [facility] PHYS[facility] T VISIT S GROUP 15 MINUTES OFFICE 79799 [facility] [address] MINUTES P EMERGENCY 14363 [facility] DEPT 5 5 PHYSICIAN JASMYNE VISIT S, [facility] HIGH [facility]VERITY& THREAT [facility] - 5 5 [facility] OUTPATIEN INC T OFFICE 50963 [facility]PATI[facility] 5 5 [facility] 25 TREAT MINUT[facility] OFFICE 22330 [facility] 5 PHYSICIAN T VISIT S GROUP 15 MINUTES EMERGENCY 71110 [facility] 5 5 [facility] T VISIT P HIGH/URGE NT [facility]VERITY [facility] - 5 5 [facility] INPATIENT INC EMERGENCY 24376 [facility] 4 4 [facility] EMERGENCY T VISIT PHYS MODERATE SEVERITY EMERGENCY 83449 [facility] 4 4 [facility] EMERGENC[facility] T VISIT PHYS HIGH/URGE NT SEVERITY OFFICE 41203 [facility] OUT[facility] 4 4 T VISIT 15 MINUTES OFFICE 42696 [facility] OUTPATI[facility] 4 4 T VISIT 15 MINUTES OFFICE 08210 [facility] 4 4 T VISIT 25 MINUTES [facility] 4 [facility] T OFFICE 21589 [facility] OUTPATIEN 4 4 T VISIT 25 MINUTES EMERGENCY 20096 [facility] WILL DEPT 4 4 [facility] VISIT HIGH SEVERITY& THREAT FUNJ EMERGENCY 81775 ZENAIDA RANDALL ZENAIDA RANDALL 4 4 DEPARTMEN T VISIT MODERATE SEVERITY Inpatient ILEANA Fields MD (IN) 4 10:57 4 12:45 [facility] Emergency KEEGAN WILL MD (ER) 4 08:06 4 09:20 [facility] Emergency KEEGAN Ramirez (ER) 3 15:40 3 17:05 [facility] E. Emergency KEEGAN Bronson MD (ER) 3 21:14 3 21:51 [facility] Emergency KEEGAN Ramirez (ER) 3 12:15 3 15:53 [facility] E. Inpatient ILEANA Sharma MD (IN) 3 08:44 3 09:40 [facility] Emergency KEEGAN Sanchez MD (ER) 3 08:10 3 09:46 [facility]
--- OUTSIDE RECORDS SUMMARY | 2017-06-29 16:24 | External Medical Summary Rpt | CCD ---
Author Author , VITO Organization VITO Address Unknown Phone Care Team Providers Care Credit Card Control Clerk Name Role Phone ALFARIS MOH, ALFARIS [...] Unavailable FARHAD JASMYNE, FARHAD Unavailable Unavailable JASMYNE [facility] Unavailable Unavailable INC, [facility] Unavailable Unavailable [facility]PITAL P, [facility], Unavailable Unavailable [facility] WHIPPLE, WHIPPLE Unavailable Unavailable JABARI NAN, JABARI Unavailable Unavailable NAN FRANCIS IMT, FRANCIS Unavailable Unavailable IMT [facility] Unavailable Unavailable [facility], [facility] Ninoska Bronson MD, Unavailable Unavailable Ninoska Bronson MD HARSHAD RANDALL, HARSHAD RANDALL Unavailable Unavailable HARSHAD RANDALL, HARSHAD RANDALL Unavailable Unavailable [facility] Unavailable Unavailable [facility], [facility] [place] Kasper H, Unavailable Unavailable [...] Unavailable Unavailable [facility], [facility] Unavailable Unavailable [facility], [facility] [place], Unavailable Unavailable [facility] Javier Fields MD, Unavailable Unavailable Javier Fields MD [facility] # Unavailable Unavailable [id number], [facility] # [id number] Cornel Ramirez Unavailable Unavailable CARMINA PIEDRA, Cornel Ramirez III, MD Purpose Continuity of Care Document - 12-24-2012 through 2016 Problems Code Diagnosis DOS Provider Status C649 MALIGNANT 05-06-2017 [facility] NEOPLASM PHYSICIANS UNS KIDNEY GROUP EXCEPT RENL PELVIS E785 HYPERLIPIDE 05-06-2017 [facility] KEYON PHYSICIANS UNSPECIFIED GROUP R079 CHEST PAIN 05-06-2017 [facility] UNSPECIFIED PHYSICIANS GROUP Z8679 PERSONAL 05-06-2017 [facility] HISTORY OT PHYSICIANS DISEASES GROUP CIRCULATORY SYSTEM C641 MALIGNANT 04-25-2017 [facility] NEOPLASM RT PHYSICIANS, KIDNEY PLLC EXCEPT RENAL PELVIS C7901 SECONDARY 04-25-2017 [facility] MALIG PHYSICIANS, NEOPLASM RT PLLC KIDNEY & RENAL PELV R1032 LEFT LOWER 04-25-2017 [facility]ANT PHYSICIANS, PAIN PLLC R1084 GENERALIZED 04-25-2017 [place] [place] ABDOMINAL MEDICAL PAIN IMAGING ASS R160 HEPATOMEGAL 04-25-2017 [place] Y NOT MEDICAL ELSEWHERE IMAGING ASS CLASSIFIED [id number] PAIN IN 03-19-2017 [place] [place] LEFT FOOT MEDICAL IMAGING ASS R011 CARDIAC 03-19-2017 [facility] UNSPECIFIED INC C7800 SECONDARY 02-06-2017 [facility]NT [facility] NEOPLASM OF INC UNSPECIFIED LUNG K5730 DIVERTICULO 02-06-2017 [place] SIS LG MEDICAL INTEST W/O IMAGING ASS PERF/ABSC W/O BLEED R590 LOCALIZED 02-06-2017 [place] [place] ENLARGED MEDICAL LYMPH NODES IMAGING ASS R911 SOLITARY 02-06-2017 [place] [place] PULMONARY MEDICAL NODULE IMAGING ASS Z0389 ENCOUNTER 02-06-2017 [facility]TH [facility] SUSPCT DZ & INC COND RULED OUT E119 TYPE 2 02-03-2017 [facility] DIABETES PHYSICIANS MELLITUS GROUP WITHOUT COMPLICATIO NS I10 ESSENTIAL 02-03-2017 [facility] PRIMARY PHYSICIANS HYPERTENSIO GROUP N Q14080 OTHER LONG 02-03-2017 [facility] TERM PHYSICIANS CURRENT GROUP DRUG THERAPY G4733 OBSTRUCTIVE 01-19-2017 [facility] ADULT [facility]ICAL PEDIATRIC EQUIPME J40 BRONCHITIS 10-06-2016 [facility] NOT PHYSICIANS SPECIFIED GROUP ACUTE OR CHRONIC C7989 SECONDARY 09-22-2016 [facility] NEOPLASM [facility] OT SPECIFIED SITES E118 TYPE 2 09-22-2016 [facility] DIABETES PHYSICIANS MELLITUS GROUP W/UNS COMPLICATIO NS E871 HYPO-OSMOLA 09-22-2016 [facility] LITY AND PHYSICIANS HYPONATREMI GROUP A K8590 ACUTE 09-22-2016 [facility] PANCREATITI PHYSICIANS S WO GROUP NECROSIS/IN FECTION UNSPEC Z720 TOBACCO USE 09-22-2016 [facility] PHYSICIANS GROUP K8580 OTHER ACUTE 09-21-2016 [facility] PHYSICIANS, PANCREATITI PLLC S WO NECROSIS/IN FECTION R109 UNSPECIFIED 09-21-2016 [place] [place] ABDOMINAL MEDICAL PAIN IMAGING ASS R110 NAUSEA 09-21-2016 [facility] [place] [facility] K38862 PERSONAL 09-21-2016 [place] [place] HISTORY MEDICAL OTHER IMAGING ASS MALIGNANT NEOPLASM KIDNEY K5731 DIVERTICULO 09-03-2016 [facility] SIS LG PHYSICIANS, INTEST W/O PLLC PERF/ABSC W/BLEED R1031 RIGHT LOWER 09-03-2016 [place] QUADRANT MEDICAL PAIN IMAGING ASS G4713 RECURRENT 08-27-2016 [facility] HYPERSOMNIA PHYSICIANS GROUP J984 OTHER 08-27-2016 [facility] DISORDERS PHYSICIANS OF LUNG GROUP H527 UNSPECIFIED 07-28-2016 [facility] AYAH DISORDER OF REFRACTION Z23 ENCOUNTER 06-16-2016 [facility] FOR PHYSICIANS IMMUNIZATIO GROUP N M546 PAIN IN 05-13-2016 [place] [place] THORACIC MEDICAL SPINE IMAGING ASS Z905 ACQUIRED 05-13-2016 [place] ABSENCE OF MEDICAL KIDNEY IMAGING ASS G4730 SLEEP APNEA 04-30-2016 [facility] PHYSICIANS UNSPECIFIED GROUP M7711 LATERAL 04-30-2016 [facility] EPICONDYLIT PHYSICIANS IS RIGHT GROUP ELBOW E875 HYPERKALEMI 04-24-2016 [facility] A PHYSICIANS GROUP 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 [place] ADRENAL MEDICAL GLAND IMAGING ASS UNSPECIFIED 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 [place] 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 C7970 SECONDARY 02-18-2016 [facility] MALIGNANT [facility] NEOPLASM [facility] P UNS ADRENAL GLAND J302 OTHER 02-18-2016 [facility] SEASONAL PHYSICIANS ALLERGIC GROUP RHINITIS R918 OTHER 02-14-2016 [place] NONSPECIFIC MEDICAL ABNORMAL IMAGING ASS FINDING OF LUNG FIELD R739 HYPERGLYCEM 10-19-2015 [facility] IA PHYSICIANS UNSPECIFIED GROUP Z5111 ENCOUNTER 10-10-2015 [facility] P TIC CHEMOTHERAP Y Z5181 ENCOUNTER 07-16-2015 [facility] THERAPEUTIC INC DRUG LEVEL MONITORING N281 CYST OF 06-29-2015 [place] KIDNEY MEDICAL ACQUIRED IMAGING ASS S56499 BROTHEL KEEPER 06-14-2015 [facility] CURRENT USE PHYSICIANS OF OPIATE GROUP ANALGESIC 1890 MALIGNANT 06-04-2015 [facility] NEOPLASM OF [facility] KIDNEY INC EXCEPT PELVIS V5811 ENCOUNTER 06-04-2015 [facility] ANTINEOPLAS INC TIC CHEMOTHERAP Y V5869 LONG-TERM 05-15-2015 [facility] (CURRENT) PHYSICIANS USE OF GROUP OTHER MEDICATIONS 45774 OVERWEIGHT 04-23-2015 [facility] PHYSICIANS GROUP 4019 UNSPECIFIED 04-23-2015 [facility] ESSENTIAL PHYSICIANS HYPERTENSIO GROUP N 51948 DIVERTICULI 04-23-2015 [facility] TIS OF PHYSICIANS COLON GROUP 02797 DIVERTICULI 04-11-2015 [facility] TIS OF PHYSICIANS COLON WITH GROUP HEMORRHAGE 56791 ABDOMINAL 04-11-2015 [facility] PAIN, LEFT PHYSICIANS LOWER GROUP QUADRANT 74000 ABDOMINAL 04-11-2015 [facility] PAIN, PHYSICIANS PERIUMBILIC GROUP 51651 ABDOMINAL 04-11-2015 [facility] PAIN OTHER PHYSICIANS SPECIFIED GROUP SITE V1052 PERSONAL 04-11-2015 [facility] HISTORY OF PHYSICIANS MALIGNANT GROUP NEOPLASM OF KIDNEY 2559 UNSPECIFIED 04-06-2015 [place] DISORDER MEDICAL OF ADRENAL IMAGING ASS GLANDS 5180 PULMONARY 04-06-2015 [facility] [place] COLLAPSE MEDICAL IMAGING ASS 27162 UNSPEC 04-06-2015 [place] VENTRAL MEDICAL LUIS W/O IMAGING ASS MENTION OBST/GANGRE N 7856 ENLARGEMENT 04-06-2015 [place] OF LYMPH MEDICAL NODES IMAGING ASS 93283 ABDOMINAL 04-06-2015 [facility] PAIN, [facility] UNSPECIFIED INC SITE 80221 OTHER 04-06-2015 [place] NONSPECIFIC MEDICAL ABNORMAL IMAGING ASS FINDING OF LUNG FIELD 2724 OTHER AND 03-23-2015 [facility] UNSPECIFIED PHYSICIANS GROUP HYPERLIPIDE KEY[place] V4573 ACQUIRED 02-28-2015 [place] ABSENCE OF MEDICAL KIDNEY IMAGING ASS 2357 NEOPLASM 02-07-2015 [facility] P TRACH BRONCHUS&STEFANI NG 7231 CERVICALGIA 01-25-2015 [facility] [place] [facility] 7245 UNSPECIFIED 01-25-2015 [place] [place] BACKACHE MEDICAL IMAGING ASS 64945 DIVERTICULO 01-24-2015 [facility] COLON URGENT TREAT 5770 ACUTE 01-24-2015 [facility] PANCREATITI [facility] S URGENT TREAT 7242 LUMBAGO 01-24-2015 [facility] URGENT TREAT 63244 LEUKOCYTOSI 01-10-2015 [facility] S PHYSICIANS UNSPECIFIED GROUP 4011 ESSENTIAL 01-10-2015 [facility] HYPERTENSIO PHYSICIANS N, BENIGN GROUP 46605 COR 01-10-2015 [facility] ATHEROSLERO PHYSICIANS UNSPEC GROUP TYPE VESSEL KOI/NONA T 7880 RENAL COLIC 01-09-2015 [facility] 7881 DYSURIA 01-09-2015 [facility] 58548 SOLITARY 01-09-2015 [facility] PULMONARY [facility] NODULE INC 4739 UNSPECIFIED 07-18-2014 [facility] PH[facility] 01790 PAIN IN 07-18-2014 [facility] PH[facility] FOOT 55912 TENOSYNOVIT 07-18-2014 [facility] IS OF FOOT N EMERGENCY AND ANKLE PHYS 5990 URINARY 06-16-2014 [facility] TRACT N EMERGENCY INFECTION PHYS SITE NOT SPECIFIED 7804 DIZZINESS 06-16-2014 [facility] AND N EMERGENCY GIDDINESS PHYS 79319 GENERALIZED 05-06-2014 [facility] ANXIETY DISORDER 7248 OTHER 03-23-2014 [facility] SYMPTOMS REFERABLE TO BACK 2374 NEOPLASM 02-21-2014 [facility] BHV OTH&UNSPEC ENDOCRN GLANDS 7840 HEADACHE 02-21-2014 [facility] 64197 DIARRHEA 02-21-2014 [facility] RANDALL 2359 NEOPLASM 02-16-2014 [facility] BEHAVIOR INC OTH&UNSPEC RESP ORGN 5932 ACQUIRED 02-06-2014 [facility] CYST OF SHELIA KIDNEY 5939 UNSPECIFIED 02-06-2014 [facility] DISORDER SHELIA OF KIDNEY AND URETER 462 ACUTE 02-01-2014 [facility] PHARYNGITIS 272.1 272.1 PURE 10-08-2013 [facility] HYPERGLYCER [facility] 305.1 305.1 10-08-2013 [facility] TOBACCO USE [facility] 577.0 577.0 ACUTE 10-08-2013 [facility] V10.53 V10.53 PER 10-08-2013 [facility]IGN [facility] RENAL PELVIS V16.9 V16.9 10-08-[address] [facility] CY NOS V17.3 V17.3 FAM 10-08-2013 [facility] HEART DIS [facility] V18.0 V18.0 FAM 10-08-2013 [facility] MELLITUS [facility] 274.01 274.01 05-10-2013 [facility] ACUTE GOUTY [facility] ARTHROPATHY 577.1 577.1 05-10-2013 [facility] CHRONIC [facility] PANCREATITI Hospital S 455.0 455.0 INT 02-10-2013 [facility] HEMORRHOID [facility] W/O COMPL Hospital 562.10 562.10 02-10-2013 [facility] DIVERTICULO [facility] SIS COLON Hospital (W/O MENT OF HEMORRHAGE) 569.3 569.3 02-10-2013 [facility] RECTAL & [facility] ANAL [facility] HEMORRHAGE 789.00 789.00 02-10-2013 [facility] ABDOMINAL [facility], [facility] UNSPECIFIED SITE 272.4 272.4 01-15-2013 [facility] HYPERLIPIDE [facility] KEYON NEC/NOS Hospital 560.1 560.1 01-15-2013 [facility] PARALYTIC [facility] ILEUS Hospital V45.73 V45.73 01-15-2013 [facility] ACQRD [facility] ABSENCE OF Hospital KIDNEY 789.06 789.06 12-24-2012 [facility] ABDOMINAL [facility] PAIN, [facility] EPIGASTRIC C64.1 MALIGNANT NEOPLASM OF RIGHT [...] PAIN R10.9 UNSPECIFIED ABDOMINAL PAIN Z79.899 OTHER LONG-TERM (CURRENT) DRUG THERAPY Allergies, Adverse Reactions, Alerts Type Drug Allergy Adverse Reaction to Substance Substance Reaction Severity Penicillin Q-MFCNYG-NFXD/THROAT Severe Clinical Alert Notifications Alert Diabetes: no [...] 48 RT ZA 89 17 17 95 OR 0 45 PH IN AR E MA [...] ve LO 52 20 20 48 RT OR 05 17 17 95 AM 4 46 PH AR 20 MA CY MG #5 TA 91 BL ET FL 60 05 06 16 30 00 WA Ac UT 43 -2 -3 .0 00 L- ti IC 20 8- 0- 00 07 MA ve 26 20 20 48 RT ON 41 17 17 95 E 5 47 PH OR AR OP MA CY 50 #5 MC 91 G SP RA Y ME 68 05 06 60 30 00 WA Ac TF 64 -2 -3 .0 00 L- ti OR 50 8- 0- 00 07 MA ve CA 54 20 20 48 RT N 55 17 17 95 HC 9 49 PH L AR 1, MA 00 CY 0 MG #5 91 TA BL ET OM 60 05 30 30 00 NE Ac EP 50 -2 -2 .0 00 L- ti RA 53 3- 3- 00 07 MA ve ZO 95 20 20 48 RT LE 20 17 [address] AR MA 20 CY MG #5 91 CA PS UL E GA 53 05 30 00 NE Ac BA 74 -2 -2 .0 00 L- ti PE 60 3- 3- 00 07 MA ve NT 10 20 20 48 RT IN 10 17 17 95 5 52 PH 10 AR 0 MA MG CY CA #5 PS 91 UL E OX 00 01 17 90 30 00 NE Ac YC 40 -2 -2 .0 00 L- ti OD 60 3- 3- 00 02 MA ve ON 52 20 20 24 RT E- 30 17 17 04 AC 1 42 PH ET AR AM MA IN CY OP HE #5 N 91 10 -3 25 LO 68 05 03 13 30 00 NE Ac SA 64 -2 -2 .0 00 L- ti RT 50 3- 3- 00 07 MA ve AN 40 20 20 48 RT 75 17 17 95 PO 4 48 PH TA AR SS MA IU CY M 25 #5 91 MG TA B OR 54 05 03 13 30 00 NE Ac AV 45 -1 -1 .0 00 L- ti 80 5- 6- 00 07 MA ve TA 92 20 20 45 RT TI 51 17 17 53 N 0 95 PH SO AR DI MA UM CY 40 #5 91 MG TA B AL 16 01 17 30 30 00 NE Ac LO 71 -0 -0 .0 00 L- ti PU 40 1- 2- 00 07 MA ve RI 04 20 20 48 RT NO 10 17 17 54 L 7 55 PH 10 AR 0 MA MG CY TA #5 BL 91 ET ME 68 05 60 30 00 NE Ac TF 64 -0 -0 .0 00 L- ti OR 50 1- 2- 00 07 MA ve CA 54 20 20 48 RT N 55 17 17 54 HC 9 56 PH L AR 1, MA 00 CY 0 MG #5 91 TA BL ET CY 68 05 30 30 00 NE Ac CL 64 -0 -0 .0 00 L- ti OB 50 1- 2- 00 07 MA ve EN 51 20 20 48 RT ZA 89 17 17 54 OR 0 57 PH IN AR E MA 10 CY MG #5 91 TA BL ET FL 60 05 06 16 30 00 NE Ac UT 43 -0 -0 .0 00 L- ti IC 20 1- 2- 00 07 MA ve 26 20 20 48 RT ON 41 17 17 54 E 5 88 PH OR AR OP MA CY 50 #5 MC 91 G SP RA Y ES 68 04 30 30 00 WA Ac CI 64 -2 -0 .0 00 L- ti TA 50 8- 2- 00 07 MA ve LO 52 20 20 41 RT OR 05 17 17 81 AM 4 82 PH AR 20 MA CY MG #5 TA 91 BL ET LI 54 04 06 30 30 00 WA Ac SI 45 -2 -0 .0 00 L- ti NO 80 8- 2- 00 07 MA ve OR 99 20 20 47 RT IL 91 [...] HE #5 N 91 10 -3 25 OR 54 04 05 30 30 00 WA [...] 50 7- 8- 00 07 MA ve CA 54 20 20 47 RT N 55 [...] ve LO 52 20 20 47 RT OR 05 17 17 87 AM 4 72 [...] 47 RT ZA 89 17 17 90 OR 0 45 PH IN AR E MA 10 CY MG #5 91 TA BL ET FL 60 03 04 16 30 00 WA Ac UT 43 -2 -2 .0 00 L- ti IC 20 7- 8- 00 07 MA ve 26 20 20 45 RT ON 41 17 17 53 E 5 94 PH OR AR OP MA CY 50 #5 MC 91 G SP RA Y LI 68 03 04 30 30 00 WA Ac SI 18 -2 -2 .0 00 L- ti NO 00 7- 8- 00 07 MA ve OR 51 20 20 47 RT IL 20 [...] HE #5 N 91 10 -3 25 OR 54 03 04 30 30 00 WA [...] 50 4- 1- 00 07 MA ve CA 54 20 20 47 RT N 55 [...] ve LO 52 20 20 46 RT OR 05 17 17 08 AM 4 69 [...] 47 RT ZA 89 17 17 32 OR 0 32 PH IN AR E MA [...] 17 17 53 E 5 94 PH OR AR OP MA CY 50 #5 MC 91 G SP RA Y OR 00 02 03 30 30 00 WA [...] 46 RT ZA 89 17 17 08 OR 0 68 PH IN AR E MA [...] ve LO 52 20 20 46 RT OR 05 17 17 08 AM 4 69 PH AR 20 MA CY MG #5 TA 91 BL ET ME 23 01 02 60 30 00 WA Ac TF 15 -2 -2 .0 00 L- ti OR 50 3- 4- 00 07 MA ve CA 10 20 20 46 RT N 41 [...] 46 RT ZA 09 16 17 08 OR 0 68 PH IN AR E MA 10 CY MG #5 91 TA BL ET ES 68 12 30 30 00 WA Ac CI 64 -2 -2 .0 00 L- ti TA 50 7- 7- 00 07 MA ve LO 52 20 20 46 RT OR 05 16 17 08 AM 4 69 [...] HE #5 N 91 10 -3 25 OR 54 12 01 30 30 00 WA [...] 20 7- 7- 00 07 MA ve CA 75 20 20 46 RT N 81 [...] 16 17 56 E 5 83 PH OR AR OP MA CY 50 #5 MC 91 G SP RA Y OX 00 02 02 0 90 30 WA 22 GA Ac YC 40 -0 -0 0. L- 33 IN ti OD 60 6- 6- 00 MA 92 EY ve ON 52 20 20 0 RT 1 E- 30 16 16 CA AC 1 PH CH ET AR AE AM MA L IN CY S OP # HE N 10 10 05 -3 91 25 OR 54 01 02 2 30 30 WA 73 GA Ac AV 45 -0 -0 0. L- 94 IN ti 80 6- 5- 00 MA 01 EY ve TA 92 20 20 0 RT 6 TI 51 16 16 CA N 0 PH CH SO AR AE DI MA L UM CY S # 40 10 MG 05 91 TA B OM 60 01 02 2 30 30 WA 73 GA Ac EP 50 -0 -0 0. L- 94 IN ti RA 53 6- 5- 00 MA 01 EY ve ZO 95 20 20 0 RT 3 LE 20 16 16 CA [address] AR AE MA L 20 CY S # MG 10 CA 05 PS 91 UL E ES 68 01 02 2 30 30 WA 73 GA Ac CI 64 -0 -0 0. L- 94 IN ti TA 50 6- 5- 00 MA 01 EY ve LO 44 20 20 0 RT 4 OR 77 16 16 CA AM 0 PH CH AR AE 20 MA L CY S MG # TA 10 BL 05 ET 91 AT 51 01 02 2 30 30 WA 73 GA Ac EN 07 -0 -0 0. L- 94 IN ti OL 90 6- 5- 00 MA 01 EY ve OL 75 20 20 0 RT 7 96 16 16 CA 25 3 PH CH AR AE MG MA L CY S TA # BL ET 10 05 91 GE 31 01 02 2 60 30 WA 73 GA Ac MF 72 -0 -0 0. L- 94 IN ti IB 20 6- 5- 00 MA 01 EY ve RO 22 20 20 0 RT 5 ZI 50 16 16 CA L 5 PH CH 60 AR AE 0 MA L MG CY S # TA BL 10 ET 05 91 AL 16 01 02 2 30 30 WA 73 GA Ac LO 71 -0 -0 0. L- 94 IN ti PU 40 6- 5- 00 MA 01 EY ve RI 04 20 20 0 RT 2 NO 10 16 16 CA L 7 PH CH 10 AR AE 0 MA L MG CY S # TA BL 10 ET 05 91 CY 68 02 02 0 [address] Ac CL 64 -0 -0 0. L- 99 ON ti OB 50 5- 5- 00 MA 84 E ve EN 45 20 20 0 RT 3 DI ZA 09 16 16 XI OR 0 PH E IN AR D E MA 10 CY # MG 10 TA 05 BL 91 ET ON 53 01 02 0 50 25 WA 88 GA Ac ET 88 -1 -0 0. L- 32 IN ti OU 50 5- 5- 00 MA 98 EY ve CH 24 20 20 0 RT 1 45 16 16 CA UL 0 PH CH TR AR AE [...] 0M ti G ve Ta bl et OR 00 01 2 No ED 05 -2 NI 40 3- Lo SO 01 20 ng NE 82 14 er 0 20 Ac ti MG ve TA BL ET OR 00 01 1 No OT 00 -2 ON 80 3- Lo IX 92 20 ng 35 14 er IV 5 Ac 40 ti ve MG AL SO 00 01 1 No DI 40 -2 UM 97 3- Lo 98 20 ng CH 43 14 er LO 7 RI Ac DE ti ve 0. 9% SO STEFNAI TI ON Sa 63 01 1 No [...] D ve DR 40 MG TA B OR 00 08 0 No ED 05 -2 NI 40 7- Lo SO 01 20 ng NE 82 13 er 0 20 Ac ti MG ve TA BL ET HY [address] 40 -2 OC 60 7- Lo OD 36 20 ng ON 56 13 er -A 2 CE Ac TA ti CA ve NO PH EN 5- 32 5 [...] ti 4H ve R Pa tc h OR 00 05 3 No OT 00 -0 [...] ti 4 ve MG /2 ML AL OR 00 04 0 No OT 00 -1 [...] 017 K/mm3 ed monocyt 00:25 e count [place] % = 3.7 % 1.7-9.3 complet 017 [...] SQUARE METERS Comment: If this patient is -Guinean, then multiply the Comment: result by 1.210. [...] Procedure [place] [address] [facility] [place] ABDOMEN & 7 MEDICAL PELVIS IMAGING W/O ASS CONTRAST MATERIAL ECHO 78557 [facility] TTHRC R-T 7 [facility] 2D INC INC W/WOM-MOD E COMPL SPEC&COLR D RADEX 28590 [facility] FOOT 7 [facility] COMPLETE INC INC MINIMUM [address] [place] [address] [facility] UREA 7 [facility] [place] [address] [facility] ABDOMEN & 7 [facility] PELVIS INC INC W/CONTRAS T MATERIAL LOCM Q9967 [facility] AMBULATOR [phone] [facility] Y SURGERY MG/ML INC CENTER, IODINE L CONCENTRA TION PER ML COLLECTIO 33772 [facility] N VENOUS 7 [facility] BLOOD INC INC VENIPUNCT URE CT THORAX 75481 [facility]ANSEN 7 [facility] W/CONTRAS INC INC T MATERIAL CREATININ 36765 [facility] E BLOOD 7 [facility] [...] AIRWAY EQUIPME EQUIPME PRESSURE DEVICE DRUG TEST 99560 [facility] PRSMV 7 [facility] QUAL DIR INC INC OPTICAL OBS PER DAY CONTINUOU E0601 [facility] Kwon 7 HOME HOME POSITIVE MEDICAL MEDICAL AIRWAY EQUIPME EQUIPME PRESSURE DEVICE DRUG TEST 31820 [facility] PRSMV 7 [facility] QUAL DIR INC INC OPTICAL OBS PER DAY CONTINUOU E0601 [facility] Kwon 7 HOME HOME POSITIVE MEDICAL MEDICAL AIRWAY EQUIPME EQUIPME PRESSURE DEVICE COMPREHEN 15045 [facility] SIVE 7 [facility] METABOLIC INC INC PANEL COLLECTIO 79611 [facility] JOHANSEN N VENOUS 7 [facility] BLOOD INC INC VENIPUNCT URE HEMOGLOBI 84860 [facility] TAYLORON N 7 [facility] GLYCOSYLA INC INC ERICA A1C CONTINUOU E0601 [facility] TRINH S 7 HOME HOME POSITIVE MEDICAL MEDICAL AIRWAY EQUIPME EQUIPME PRESSURE DEVICE HOSPITAL 15[address] [facility] 7 PHYSICIAN DAY S GROUP MANAGEMEN T 30 MIN/< SBSQ [address]154 [place] [address] PHYSICIAN CARE/DAY S GROUP 15 MINUTES FINAL G9551 [facility] REPR ABD 7 MEDICAL IMAG STS IMAGING W/O ASS INCIDNT FND LES NTD: FINAL G9638 [facility] REPORTS 7 MEDICAL W/O DOC IMAGING 1/[place] [address] [facility] ABDOMEN & 7 MEDICAL PELVIS IMAGING W/O ASS CONTRAST MATERIAL INITIAL 76[address] [place] [address] PHYSICIAN CARE/DAY S GROUP 50 MINUTES CONTINUOU E0601 [facility] TRINH S 7 HOME HOME POSITIVE MEDICAL MEDICAL AIRW[employer] [place] [address] [facility] R[facility] ABDOMEN & 7 MEDICAL PELVIS IMAGING W/O ASS CONTRAST MATERIAL DRUG TST G0477 [facility] PRESUMP;C 6 [facility] PBL BEING INC INC READ DC OPT OBV ONLY DRUG TEST G0481 [facility] DEFINITV [address] ID INC INC METH P DAY 8-[address] [place] [address] [facility] SALAS ABDOMEN & 6 MEDICAL PELVIS IMAGING W/O ASS CONTRAST MATERIAL POLYSOM 87042 [facility] PAVEZ 6/>YRS 6 PHYSICIAN SLEEP S GROUP W/CPAP 4/> ADDL DEMETRIUS ATTND CONTINUOU E0601 [facility] TRINH S 6 HOME HOME POSITIVE MEDICAL MEDICAL AIRWAY EQUIPME EQUIPME PRESSURE DEVICE DRUG TEST G0481 [facility] TAYLORON DEFINITV [address] ID INC INC METH P DAY 8-[address] OPHTH 83762 [facility] 6 AYAH AYAH XM&EVAL COMPRE NEW PT [...] DAY 8-14 DRUG CL SLEEP STD 10-17-201 31528 [facility] AIRFLOW 6 [facility] HRT INC INC RATE&O2 SAT EFFORT UNATT IM ADM 35192 [facility] FARHAD PRQ ID 6 PHYSICIAN JASMYNE SUBQ/IM S GROUP NJXS 1 VACCINE IIV 14307 [facility] FAR[facility]AD ADJUVANTE 6 PHYSICIAN JASMYNE D VACCINE S GROUP FOR INTRAMUSC ULAR USE DRUG TST G0477 [facility] PRESUMP;C 6 [facility] PBL BEING INC INC READ DC OPT OBV ONLY TECHNETIU A9503 [facility] Arthur TC-99M 6 [facility] MEDRONATE INC INC DX UP TO 30 MCI BONE 98292 [facility] &/JOINT 6 [facility] IMAGING INC INC WHOLE BODY BLOOD 40941 [facility] COUNT 6 [facility] COMPLETE INC INC AUTO&AUTO DIFRNTL WBC COMPREHEN 68834 [facility] SIVE 6 [facility] METABOLIC INC INC PANEL COLLECTIO 90748 [facility] N VENOUS 6 [facility] BLOOD INC INC VENIPUNCT URE DRUG TST G0477 [facility] PRESUMP;C 6 [facility] PBL BEING INC INC READ DC OPT OBV ONLY DRUG TEST G0481 [facility] DEFINITV [address] [facility] [address] [address] ID INC INC METH P DAY 8-14 DRUG CL COMPREHEN 87335 [facility] SIVE 6 [facility] [place] [address] [facility] [place] [facility] THORACIC 6 MEDICAL SPINE W/[place] [address] [facility] [place] [facility] ABDOMEN & 6 MEDICAL PELVIS IMAGING W/O ASS CONTRAST MATERIAL THERAPEUT 67204 [facility] FARHAD IC 6 PHYSICIAN JASMYNE PROPHYLAC S GROUP TIC/DX INJECTION SUBQ/IM INJECTION J1100 [facility] FARHAD 6 PHYSICIAN JASMYNE DEXAMETHO S GROUP [...] [facility] INC INC BLOOD 25724 [facility] COUNT 6 [facility] COMPLETE INC INC AUTO&[place] [address] [facility] THYROID 6 [facility] STIMULATI INC INC NG HORMONE TSH CT THORAX [address] [facility] [place] [facility] 6 MEDICAL W/CONTRAS IMAGING T ASS MATERIAL LOCM Q9967 [facility]EN [phone] 6 [facility] MG/ML INC INC IODINE CONCENTRA TION PER ML COMPREHEN 92166 [facility] SIVE 6 [facility] METABOLIC INC INC PANEL COLLECTIO 67410 [facility] N VENOUS 6 [facility] [place] [address] [facility] UREA 6 [facility] NITROGEN INC INC QUANTITAT MENG CREATININ 31099 [facility] E BLOOD 6 [facility] INC INC UNCLASSIF J3490 [facility] [place] IED DRUGS 6 [place] [address] [facility] [place] ABDOMEN & 6 [facility] PELVIS INC INC W/CONTRAS T MATERIAL CT THORAX 10107 [facility] 6 [facility] W/CONTRAS INC INC T MATERIAL LOCM Q9967 [facility] [phone] 6 [facility] MG/ML INC INC IODINE CONCENTRA TION PER ML COMPREHEN 64723 [facility] SIVE 6 [facility] METABOLIC INC INC PANEL BLOOD 42991 [facility] COUNT 6 [facility] COMPLETE INC INC AUTO&[place] [address] [facility] INFUSION 6 [facility] THERAPY/P INC INC ROPHYLAXI S /DX 1ST TO 1 HR BLOOD 78174 [facility] COUNT 6 [facility] COMPLETE INC INC AUTO&AUTO DIFRNTL WBC INJECTION J9299 [facility] 6 [facility] NIVOLUMAB INC INC 1 MG BLOOD 74514 [facility] COUNT 6 [facility] [facility] COMPLETE INC INC AUTO&AUTO DIFRNTL WBC CHEMOTX 25874 [facility] ELENO ADMN IV 6 [facility] NFS TQ UP INC INC 1 HR SBST/DRUG BASIC 87734 ELENO JOHANSEN METABOLIC 6 [facility] PANEL INC INC CALCIUM TOTAL CT THORAX 62765 [place] [facility] 5 MEDICAL W/[place] [address] [place] [facility] ABDOMEN & 5 MEDICAL PELVIS IMAGING W/CONTRAS ASS T MATERIAL CHEMOTX 52780 [facility] JOHANSEN ADMN IV 5 [facility] NFS TQ UP INC INC 1 HR SBST/DRUG COMPREHEN 10930 [facility] JOHANSEN SIVE 5 [facility] METABOLIC INC INC PANEL BLOOD 98942 [facility] JOHANSEN COUNT 5 [facility] COMPLETE INC INC AUTO&AUTO DIFRNTL WBC CHEMOTX 64770 EL[facility] JOHANSEN ADMN IV 5 [facility] NFS TQ UP INC INC 1 HR SBST/DRUG INJECTION C9453 [facility]ENO 5 [facility] NIVOLUMAB INC INC 1 MG BLOOD 26040 [facility] JOHANSEN COUNT 5 [facility] COMPLETE INC INC AUTO&AUTO DIFRNTL WBC IM ADM 95729 [facility] PRQ ID 5 PHYSICIAN JASMYNE SUBQ/IM S GROUP NJXS 1 VACCINE IIV3 [id number] [facility] VACCINE 5 PHYSICIAN JASMYNE SPLIT S GROUP VIRUS 0.5 ML DOSAGE IM USE CHEMOTX 51808 EL[facility] JOHANSEN ADMN IV 5 [facility] NFS TQ UP INC INC 1 HR SBST/DRUG COLLECTIO 02983 EL[facility] JOHANSEN N VENOUS 5 [facility] BLOOD INC INC VENIPUNCT URE BLOOD 59553 [facility] JOHANSEN COUNT 5 [facility] COMPLETE INC INC AUTO&AUTO DIFRNTL WBC COMPREHEN 16957 [facility] JOHANSEN SIVE 5 [facility] METABOLIC INC INC PANEL LOCM Q9967 ELENO JOHANSEN [phone] 5 [facility] MG/ML INC INC IODINE CONCENTRA TION PER ML CT THORAX 43564 ELENO ELENO 5 [facility] W/[place] [address] ELENO JOHANSEN ABDOMEN 5 [facility] W/CONTRAS INC INC T MATERIAL CHEMOTX 54279 ELENO JOHANSEN ADMN IV 5 [facility] NFS TQ UP INC INC 1 HR SBST/DRUG BLOOD 95596 [facility] JOHANSEN COUNT 5 [facility] COMPLETE INC INC AUTO&AUTO DIFRNTL WBC BLOOD 65534 [facility] JOHANSEN COUNT 5 [facility] COMPLETE INC INC AUTO&AUTO DIFRNTL WBC CHEMOTX 61591 ELENO JOHANSEN ADMN IV 5 [facility] NFS TQ UP INC INC 1 HR SBST/DRUG COMPREHEN 25066 [facility] JOHANSEN SIVE 5 [facility] METABOLIC INC INC PANEL CHEMOTX 95094 ELENO JOHANSEN ADMN IV 5 [facility] NFS TQ UP INC INC 1 HR SBST/DRUG BLOOD 82444 [facility] JOHANSEN COUNT 5 [facility] COMPLETE INC INC AUTO&AUTO DIFRNTL WBC BLOOD 81484 [facility] JOHANSEN COUNT 5 [facility] COMPLETE INC INC AUTO&AUTO DIFRNTL WBC CHEMOTHER 18693 EL[facility] JOHANSEN APY ADMN 5 [facility] IV INC INC INFUSION TQ EA HR COMPREHEN 16097 [facility]OHANSEN SIVE 5 [facility] METABOLIC INC INC PANEL COLLECTIO 28122 EL[facility] JOHANSEN N VENOUS 5 [facility] BLOOD INC INC VENIPUNCT URE CHEMOTX 20583 ELENO JOHANSEN ADMN IV 5 [facility] NFS TQ UP INC INC 1 HR SBST/DRUG CT THORAX 64276 [facility] JOHANSEN 5 [facility] W/CONTRAS INC INC T MATERIAL LOCM Q9967 EL[facility] JOHANSEN [phone] 5 [facility] MG/ML INC [place] [address] ELENO JOHANSEN ABDOMEN & 5 [facility] PELVIS [place] [address] ELENO JOHANSEN AMYLASE 5 [facility] INC INC COMPREHEN 27276 EL[facility] JOHANSEN SIVE 5 [facility] METABOLIC INC INC PANEL COLLECTIO 99840 EL[facility] JOHANSEN N VENOUS 5 [facility] [place] [address] EL[facility] JOHANSEN LIPASE 5 [facility] INC INC BLOOD 84934 EL[facility] JOHANSEN COUNT 5 [facility] COMPLETE INC INC AUTO&AUTO DIFRNTL WBC BLOOD 61291 [facility] JOHANSEN COUNT 5 [facility] COMPLETE INC INC AUTO&AUTO DIFRNTL WBC COLLECTIO 42480 EL[facility] JOHANSEN N VENOUS 5 [facility] BLOOD INC INC VENIPUNCT URE COMPREHEN 31347 [facility] JOHANSEN SIVE 5 [facility] [address] EL[facility] JOHANSEN ERYTHROPO 5 [facility] [place] [place] [address] [place] ABDOMEN & 5 MEDICAL SHELIA PELVIS IMAGING W/O ASS CONTRAST [facility] [address] [facility] DISCHARGE 5 CARE R H DAY ASSOCIATE MANAGEMEN S T 30 MIN/< SBSQ 05321 [facility] 5 CARE R H CARE/DAY ASSOCIATE 15 S MINUTES INITIAL 79992 [facility] TOD INPATIENT 5 PHYSICIAN CONSULT S GROUP NEW/ESTAB PT [address] [facility] 5 CARE R H CARE/DAY ASSOCI[place] [address] [place] [address] [place] [facility] ABDOMEN & 5 MEDICAL PELVIS IMAGING W/O ASS CONTRAST MATERIAL RADEX 86795 ELENO JOHANSEN SPINE 5 [facility] CERVICAL INC INC 4 OR 5 VIEWS RADEX 43955 EL[facility] JOHANSEN SPINE 5 [facility] LUMBOSACR INC INC AL MINIMUM 4 VIEWS HOSPITAL 87781 [facility] 5 CARE R H DAY ASSOCIATE MANAGEMEN S T 30 MIN/< SBSQ 98517 [facility] 5 PHYSICIAN CARE/DAY S GROUP [address] THORAX 88503 [place] [facility] W/O 5 MEDICAL SHELIA CONTRAST IMAGING MATERIAL ASS INITIAL 00473 [facility] 5 CARE R H CARE/DAY ASSOCIATE 50 S MINUTES INITIAL 88507 [facility] INPATIENT 5 PHYSICIAN CONSULT S GROUP NEW/ESTAB [place] [address] [place] [address] [place] DA[place] ABDOMEN & 5 MEDICAL SHELIA PELVIS IMAGING W/CONTRAS ASS T MATERIAL ECG 44426 [facility] ROUTINE 4 JOSE F IMT ECG EMERGENCY W/LEAST PHYS 12 LDS I&R ONLY LIPID 72287 [facility] R[facility] R[facility]ALL PANEL 4 URINLS 86398 HARSHADTo8to [facility]SHAD RANDALL DIP 4 STICK/TAB LET REAGNT NON-AUTO MICRSCPY METANEPHR 56440 [facility] 4 DIAGNOSTI DIAGNOSTI CS CS LOCM Q9967 ELENO JOHANSEN [phone] 4 [facility] MG/ML INC INC IODINE CONCENTRA TION PER ML CT THORAX 16442 ELENO JOHANSEN 4 [facility] W/[place] [address] DANA DANA ABDOMEN & 4 SHELIA SHELIA PELVIS W/O CONTRAST MATERIAL Encounters Encounter Start End Date Code Location Performer Type Date OFFICE 72161 [facility] OUTPATIEN 7 7 PHYSICIAN A T NEW 60 S GROUP MINUTES EMERGENCY 76853 DANAY LLAMAS DEPT 7 7 PHYSICIAN VISIT S, PLLC HIGH SEVERITY& THREAT [facility] - 7 7 [facility] T [facility] - 7 7 [facility] INC T OFFICE 16693 [facility] OUTPATIEN 7 7 PHYSICIAN T VISIT S GROUP 15 MINUTES HOSPITAL [facility] - 7 7 [facility] OUTPATIEN INC T OFFICE 09555 [facility] OUTPATIEN 7 7 PHYSICIAN T VISIT S GROUP 25 MINUTES OFFICE 86041 [facility] OUTPATIEN 7 7 PHYSICIAN T VISIT S GROUP 25 MINUTES HOSPITAL [facility] - 7 7 [facility] OUTPATIEN INC T OFFICE 43695 [facility] OUTPATIEN 7 7 PHYSICIAN T VISIT S GROUP 25 MINUTES HOSPITAL [facility] - 7 7 [facility] OUTPATIEN INC T OFFICE 67563 [facility] OUTPATIEN 7 7 PHYSICIAN T VISIT S GROUP 25 MINUTES HOSPITAL [facility] - 7 7 [facility] INPATIENT INC EMERGENCY 89246 DANAY LLAMAS DEPT 7 7 PHYSICIAN VISIT S, PLLC HIGH SEVERITY& THREAT [facility] OFFICE 03052 ELENO SMITH OUTPATIEN 6 6 [facility] T VISIT 5 HOSPITAL MINUTES [facility] ELENO - 6 6 [facility] OUTPATIEN INC T OFFICE 45910 [facility] OUTPATIEN 6 6 PHYSICIAN T VISIT S GROUP 15 MINUTES EMERGENCY 50826 DANAY WHIPPLE DEPT 6 6 PHYSICIAN VISIT S, PLL HIGH SEVERITY& THREAT [facility] - 6 6 [facility]PAT[facility] INC [facility] - 6 6 [facility] OUTPATIEN INC T OFFICE 00542 [facility] OUTPATIEN 6 6 PHYSICIAN JASMYNE T VISIT S GROUP 15 MINUTES HOSPITAL [facility] - 6 6 [facility] OUTPATIEN INC [facility] [place] - 6 6 [facility]PAT[facility]EN [facility] [place] - 6 6 [facility] OUTPATIEN INC T OFFICE 35263 [facility] OUTPATIEN 6 6 PHYSICIAN JASMYNE T VISIT S GROUP 15 MINUTES OFFICE 36366 EL[facility] SMITH OUTPATIEN 6 6 [facility] 10 P MINUTES HOSPITAL [facility] - 6 6 [facility] OUTPATIEN [facility] ELENO - 6 6 [facility] OUTPATIEN [facility] T OFFICE 23529 EL[facility] SMITH OUTPATIEN 6 6 [facility] 15 P MINUTES OFFICE 14344 [facility] OUTPATIEN 6 6 PHYSICIAN JASMYNE T VISIT S GROUP 15 MINUTES HOSPITAL [place] - 6 6 [facility] OUTPATIEN [facility] EL[facility] - 6 6 [facility] OUTPATIEN [facility] T OFFICE 75943 [facility] OUTPATIEN 6 6 PHYSICIAN JASMYNE T VISIT 5 S GROUP MINUTES EMERGENCY 10201 DANAY LLAMAS DEPT 6 6 PHYSICIAN JASMYNE VISIT S, [facility] HIGH SEVERITY& THREAT [facility]O - 6 6 [facility] OUTPATIEN INC T OFFICE 67612 [facility] OUTPATIEN 6 6 PHYSICIAN JASMYNE T VISIT S GROUP 15 MINUTES HOSPITAL [facility] - 6 6 [facility] OUTPATIEN INC T OFFICE 02483 [facility] OUTPATIEN 6 6 PHYSICIAN JASMYNE T VISIT S GROUP 10 MINUTES HOSPITAL [facility] - 6 6 [facility] OUTPATIEN INC T OFFICE 43539 [facility] OUTPATIEN 6 6 PHYSICIAN JASMYNE T VISIT S GROUP 15 MINUTES OFFICE 55869 [facility] OUTPATIEN 6 6 PHYSICIAN JASMYNE T VISIT S GROUP 10 MINUTES OFFICE 38852 EL[facility] SMITH OUTPATIEN 6 6 [facility] VISIT [facility] 10 P MINUTES OFFICE 93423 [facility] OUTPATIEN 6 6 PHYSICIAN JASMYNE T VISIT S GROUP 10 MINUTES HOSPITAL [facility] - 6 6 [facility]PATIEN INC [facility] [place] - 6 6 [facility] OUTPATIEN INC T OFFICE 85747 EL[facility] SMITH OUTPATIEN 6 6 [facility] 10 P MINUTES [facility] - 6 6 [facility]PATIEN [facility] ELENO - 6 6 [facility] OUTPATIEN INC T OFFICE 12056 [facility] OUTPATIEN 6 6 PHYSICIAN JASMYNE T VISIT S GROUP 10 MINUTES HOSPITAL [facility] - 6 6 [facility] OUTPATIEN [facility] OFFICE 76822 EL[facility] SMITH OUTPATIEN 6 6 [facility] 10 P MINUTES OFFICE 50806 EL[facility] SMITH OUTPATIEN 6 6 [facility] 10 P MINUTES OFFICE 20174 [facility] OUTPATIEN 6 6 PHYSICIAN JASMYNE T VISIT S GROUP 15 MINUTES HOSPITAL [facility] - 6 6 [facility] OUTPATIEN INC T OFFICE 26347 EL[facility] SMITH OUTPATIEN 5 5 [facility] 10 P MINUTES OFFICE 35788 [facility] OUTPATIEN 5 5 PHYSICIAN JAMSYNE T VISIT S GROUP 10 MINUTES HOSPITAL [place] - 5 5 [facility]EN [facility] [place] - 5 5 [facility] OUTPATIEN INC T OFFICE 05555 EL[facility] SMITH OUTPATIEN 5 5 [facility]I T VISIT 5 HOSPITAL MINUTES P [facility] [place] - 5 5 [facility] OUTPATIEN INC T OFFICE 76004 [facility] OUTPATIEN 5 5 PHYSICIAN JASMYNE T VISIT S GROUP 10 MINUTES OFFICE 30008 [facility] SMITH OUTPATIEN 5 5 [facility] 10 P MINUTES [facility] [place] - 5 5 [facility] [place] - 5 5 [facility] INC [facility] [place] - 5 5 [facility]PAT[facility] INC T OFFICE 39881 [facility] OUTPATIEN 5 5 PHYSICIAN JASMYNE T VISIT S GROUP 25 MINUTES [facility]OSP[facility] - 5 5 [facility] OUTPATIEN INC [facility] [place] - 5 5 [facility] OUTPATIEN INC T OFFICE 03427 [facility] SMITH OUTPATIEN 5 5 [facility] PHI T VISIT 5 HOSPITAL MINUTES P OFFICE 59691 [facility] OUTPATIEN 5 5 PHYSICIAN JASMYNE T VISIT S GROUP 10 MINUTES [facility]OSPITAL [facility] - 5 5 [facility] OUTPATIEN INC T OFFICE 96434 [facility] SMITH OUTPATIEN 5 5 [facility] PHI T VISIT 5 HOSPITAL MINUTES P OFFICE 69715 [facility] OUTPATIEN 5 5 PHYSICIAN JASMYNE T VISIT S GROUP 15 MINUTES OFFICE 83886 [facility] SMITH OUTPATIEN 5 5 [facility] T VISIT [facility] 10 P MINUTES OFFICE 36767 [facility] TOD OUTPATIEN 5 5 PHYSICIAN T VISIT S GROUP 15 MINUTES HOSPITAL [place] - 5 5 [facility] OUTPATIEN INC T OFF[facility] 51246 [facility] TOD OUTPATIEN 5 5 PHYSICIAN T VISIT S GROUP 15 MINUTES HOSPITAL [place] - 5 5 [facility] OUTPATIEN INC T OFFICE 01624 [facility] OUTPATIEN 5 5 PHYSICIAN JASMYNE T VISIT S GROUP 15 MINUTES HOSPITAL [place] - 5 5 [facility] OUTPATIEN INC T OFFICE 05190 [facility] SMITH OUTPATIEN 5 5 [facility] VISIT HOSPITAL 10 P MINUTES EMERGENCY 49767 [facility] DEPT 5 5 PHYSICIAN JASMYNE VISIT S, [facility]IGH SEVERITY& THREAT FUN [facility] 5 PHYSICIAN T VISIT S GROUP 15 MINUTES OFFICE 96378 [facility] SMITH OUTPATIEN [address] MINUTES P EMERGENCY 69361 [facility] DEPT 5 5 PHYSICIAN JASMYNE VISIT S[facility] HIGH [facility]VERITY& THREAT [facility] [place] - 5 5 [facility] OUTPATIEN INC T OFFICE 71484 [facility] OUTPATIEN 5 5 [facility] T VISIT URGENT 25 TREAT MINUTES OFFICE 20640 [facility] TOD OUTPATIEN 5 5 PHYSICIAN T VISIT S GROUP 15 MINUTES EMERGENCY 75870 [facility] [address] [facility] T VISIT P HIGH/URGE NT SEVERITY [facility]OSPITAL [place] - 5 5 [facility] INPATIENT INC EMERGENCY 04642 [facility] 4 4 [facility] EMERGENCY T VISIT PHYS MODERATE SEVERITY EMERGENCY 47751 [facility] FRANCIS 4 4 [facility] EMERGENCY T VISIT PHYS HIGH/URGE NT SEVERITY OFFICE 63822 [facility] OUTPATIEN 4 4 T VISIT 15 MINUTES OFFICE 20007 [facility] OUTPATIEN 4 4 T VISIT 15 MINUTES OFFICE 99325 [facility] OUTPATIEN 4 4 T VISIT 25 MINUTES [facility]OSP[facility] - 4 4 [facility] OUTPATIEN INC T OFFICE 96537 [facility] R[facility]ALL [facility] OUTPATIEN 4 4 T VISIT 25 MINUTES EMERGENCY 01771 [facility] DEPT 4 4 [facility] VISIT HIGH SEVERITY& THREAT FUNJ EMERGENCY 11328 ZENAIDA RANDALL ZENAIDA RANDALL 4 4 DEPARTMEN T VISIT MODERATE SEVERITY Inpatient ILEANA Fields MD (IN) 4 10:57 4 12:45 [facility] Emergency KEEGAN WILL MD (ER) 4 08:06 4 09:20 [facility] Emergency KEEGAN Ramirez (ER) 3 15:40 3 17:05 [facility] E. Emergency KEEGAN Bronson MD (ER) 3 21:14 3 21:51 [facility] Emergency KEEGAN Ramirez (ER) 3 12:15 3 15:53 [facility] E. Inpatient ILEANA Sharma MD (IN) 3 08:44 3 09:40 [facility] Emergency KEEGAN Sanchez MD (ER) 3 08:10 3 09:46 [facility]
--- OUTSIDE RECORDS SUMMARY | 2017-06-29 16:32 | External Medical Summary Rpt | CCD ---
Author Author , VITO Organization [facility] Address Unknown Phone [email or web address] Care Team Providers Care Furniture Rental Consultant Name Role Phone ALFARIS MOH, ALFARIS Unavailable [...] JASMYNE, FARHAD Unavailable Unavailable JASMYNE [facility] Unavailable Unavailable INC, [facility] Unavailable Unavailable HOSPITAL P, [facility] P [facility], Unavailable Unavailable [facility] WHIPPLE, WHIPPLE Unavailable Unavailable JABARI NAN, JABARI Unavailable Unavailable NAN FRANCIS IMT, FRANCIS Unavailable Unavailable IMT [facility] Unavailable Unavailable IMAGING [facility], [facility] HARSHAD RANDALL, HARSHAD RANDALL Unavailable Unavailable HARSHAD RANDALL, HARSHAD RANDALL Unavailable Unavailable [facility] Unavailable Unavailable [...] Unavailable [facility] # Unavailable Unavailable [id number], [facility] # [id number] Purpose Continuity of Care Document - 02-01-2014 through 2016 Problems Code Diagnosis DOS Provider Status C649 MALIGNANT 05-06-2017 [facility] NEOPLASM PHYSICIANS UNS KIDNEY GROUP EXCEPT RENL PELVIS E785 HYPERLIPIDE 05-06-2017 [facility] KEYON PHYSICIANS UNSPECIFIED GROUP R079 CHEST PAIN 05-06-2017 [facility] UNSPECIFIED PHYSICIANS GROUP Z8679 PERSONAL 05-06-2017 [facility] HISTORY OT PHYSICIANS DISEASES GROUP CIRCULATORY SYSTEM C641 MALIGNANT 04-25-2017 [facility] NEOPLASM RT PHYSICIANS, KIDNEY PLLC EXCEPT RENAL PELVIS C7901 SECONDARY 04-25-2017 [facility] MALIG PHYSICIANS, NEOPLASM RT PLLC KIDNEY & RENAL PELV R1032 LEFT LOWER 04-25-2017 [facility] QU[facility]ANT PHYSICIANS, PAIN PLLC R1084 GENERALIZED 04-25-2017 [facility] ABDOMINAL MEDICAL PAIN IMAGING ASS R160 HEPATOMEGAL 04-25-2017 [facility] Y NOT MEDICAL ELSEWHERE IMAGING ASS CLASSIFIED V15676 PAIN IN 03-19-2017 [facility] LEFT FOOT MEDICAL IMAGING ASS R011 CARDIAC 03-19-2017 [facility] UNSPECIFIED INC C7800 SECONDARY 02-06-2017 [facility] NEOPLASM OF INC UNSPECIFIED LUNG K5730 DIVERTICULO 02-06-2017 [facility] SIS LG MEDICAL INTEST W/O IMAGING ASS PERF/ABSC W/O BLEED R590 LOCALIZED 02-06-2017 [facility] ENLARGED MEDICAL LYMPH NODES IMAGING ASS R911 SOLITARY 02-06-2017 [facility] PULMONARY MEDICAL NODULE IMAGING ASS Z0389 ENCOUNTER 02-06-2017 [facility] OBSERV OTH [facility] SUSPCT DZ & INC COND RULED OUT E119 TYPE 2 02-03-2017 [facility] DIABETES PHYSICIANS MELLITUS GROUP WITHOUT COMPLICATIO NS I10 ESSENTIAL 02-03-2017 [facility] PRIMARY PHYSICIANS HYPERTENSIO GROUP N [id number] OTHER LONG 02-03-2017 [facility] TERM PHYSICIANS CURRENT GROUP DRUG THERAPY G4733 OBSTRUCTIVE 01-19-2017 [facility] HOME APNEA ADULT MEDICAL PEDIATRIC EQUIPME J40 BRONCHITIS 10-06-2016 [facility] NOT PHYSICIANS SPECIFIED GROUP ACUTE OR CHRONIC C7989 SECONDARY 09-22-2016 [facility] NEOPLASM INC OTH SPECIFIED SITES E118 TYPE 2 09-22-2016 [facility] DIABETES PHYSICIANS MELLITUS GROUP W/UNS COMPLICATIO NS E871 HYPO-OSMOLA 09-22-2016 [facility] LITY AND PHYSICIANS HYPONATREMI GROUP A K8590 ACUTE 09-22-2016 [facility] PANCREATITI PHYSICIANS S WO GROUP NECROSIS/IN FECTION UNSPEC Z720 TOBACCO USE 09-22-2016 [facility]ANS GROUP K8580 OTHER ACUTE 09-21-2016 [facility] PHYSICIANS, PANCREATITI [facility] S WO NECROSIS/IN FECTION R109 UNSPECIFIED 09-21-2016 [facility] ABDOMINAL [facility]ICAL PAIN IMAGING ASS R110 NAUSEA 09-21-2016 [facility] MEDICAL [facility]ING ASS Y61022 PERSONAL 09-21-2016 [facility] HISTORY MEDICAL OTHER IMAGING ASS MALIGNANT NEOPLASM KIDNEY K5731 DIVERTICULO 09-03-2016 [facility] SIS LG PHYSICIANS, INTEST W/O PLLC PERF/ABSC W/BLEED R1031 RIGHT LOWER 09-03-2016 [facility] QUADRANT MEDICAL PAIN IMAGING ASS G4713 RECURRENT 08-27-2016 [facility] HYPERSOMNIA PHYSICIANS GROUP J984 OTHER 08-27-2016 [facility] DISORDERS PHYSICIANS OF LUNG GROUP H527 UNSPECIFIED 07-28-2016 [facility] AYAH DISORDER OF REFRACTION Z23 ENCOUNTER 06-16-2016 [facility] FOR PHYSICIANS IMMUNIZATIO GROUP N M546 PAIN IN 05-13-2016 [facility] THORACIC MEDICAL SPINE IMAGING ASS Z905 ACQUIRED 05-13-2016 [facility] ABSENCE OF MEDICAL KIDNEY IMAGING ASS G4730 SLEEP APNEA 04-30-2016 [facility] PHYSICIANS UNSPECIFIED GROUP M7711 LATERAL 04-30-2016 [facility] EPICONDYLIT PHYSICIANS IS RIGHT GROUP ELBOW E875 HYPERKALEMI 04-24-2016 [facility] A PHYSICIANS GROUP 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 [facility] ADRENAL MEDICAL GLAND IMAGING ASS UNSPECIFIED 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 DRUG LEVEL MONITORING N281 CYST OF 06-29-2015 [facility] KIDNEY MEDICAL ACQUIRED IMAGING ASS F77819 NURSING HOME 06-14-2015 [facility] CURRENT USE PHYSICIANS OF OPIATE GROUP ANALGESIC 1890 MALIGNANT 06-04-2015 [facility] NEOPLASM OF [facility] KIDNEY INC EXCEPT PELVIS V5811 ENCOUNTER 06-04-2015 [facility] ANTINEOPLAS INC TIC CHEMOTHERAP Y V5869 LONG-TERM 05-15-2015 [facility] (CURRENT) PHYSICIANS USE OF GROUP OTHER MEDICATIONS 49312 OVERWEIGHT 04-23-2015 [facility] GROUP 4019 UNSPECIFIED 04-23-2015 [facility] ESSENTIAL PHYSICIANS HYPERTENSIO GROUP N 16050 DIVERTICULI 04-23-2015 [facility] TIS OF PHYSICIANS COLON GROUP 96561 DIVERTICULI 04-11-2015 [facility] TIS OF PHYSICIANS COLON WITH GROUP HEMORRHAGE 58183 ABDOMINAL 04-11-2015 [facility] PAIN, LEFT PHYSICIANS LOWER GROUP QUADRANT 65672 ABDOMINAL 04-11-2015 [facility] PAIN, PHYSICIANS PERIUMBILIC GROUP 04725 ABDOMINAL 04-11-2015 [facility] PAIN OTHER PHYSICIANS SPECIFIED GROUP SITE V1052 PERSONAL 04-11-2015 [facility] HISTORY OF PHYSICIANS MALIGNANT GROUP NEOPLASM OF KIDNEY 2559 UNSPECIFIED 04-06-2015 [facility] DISORDER MEDICAL OF ADRENAL IMAGING ASS GLANDS 5180 PULMONARY 04-06-2015 [facility] COLLAPSE MEDICAL IMAGING ASS 84114 UNSPEC 04-06-2015 [facility] VENTRAL MEDICAL LUIS W/O IMAGING ASS MENTION OBST/GANGRE N 7856 ENLARGEMENT 04-06-2015 [facility] OF LYMPH MEDICAL NODES IMAGING ASS 52194 ABDOMINAL 04-06-2015 [facility] PAIN, [facility] UNSPECIFIED INC SITE 10865 OTHER 04-06-2015 [facility] NONSPECIFIC MEDICAL ABNORMAL IMAGING ASS FINDING OF LUNG FIELD 2724 OTHER AND 03-23-2015 [facility] UNSPECIFIED PHYSICIANS GROUP HYPERLIPIDE [facility] V4573 ACQUIRED 02-28-2015 [facility] ABSENCE OF MEDICAL KIDNEY IMAGING ASS 2357 NEOPLASM 02-07-2015 [facility] P TRACH BRONCHUS&STEFANI NG 7231 CERVICALGIA 01-25-2015 [facility] 7245 UNSPECIFIED 01-25-2015 [facility] BACKACHE MEDICAL IMAGING ASS 12484 DIVERTICULO 01-24-2015 [facility] SIS OF [facility] COLON URGENT TREAT 5770 ACUTE 01-24-2015 [facility] PANCREATITI [facility] S URGENT TREAT 7242 LUMBAGO 01-24-2015 [facility] URGENT TREAT 38131 LEUKOCYTOSI 01-10-2015 [facility] S PHYSICIANS UNSPECIFIED GROUP 4011 ESSENTIAL 01-10-2015 [facility] HYPERTENSIO PHYSICIANS N, BENIGN GROUP 78188 COR 01-10-2015 [facility] ATHEROSLERO PHYSICIANS UNSPEC GROUP TYPE VESSEL NOTTAWASEPPI POTAWATOMI/NONA T 7880 RENAL COLIC 01-09-2015 [facility] 7881 DYSURIA 01-09-2015 [facility] 30470 SOLITARY 01-09-2015 [facility] PULMONARY [facility] NODULE INC 4739 UNSPECIFIED 07-18-2014 [facility]ERG[facility]Y PHYS 88386 PAIN IN 07-18-2014 [facility] JOINT, N EMERGENCY ANKLE AND PHYS FOOT 01314 TENOSYNOVIT 07-18-2014 [facility] IS OF FOOT N EMERGENCY AND ANKLE PHYS 5990 URINARY 06-16-2014 [facility] TRACT N EMERGENCY INFECTION PHYS SITE NOT SPECIFIED 7804 DIZZINESS 06-16-2014 [facility] AND N EMERGENCY GIDDINESS PHYS 53736 GENERALIZED 05-06-2014 HARSH[facility] RANDALL ANXIETY DISORDER 7248 OTHER 03-23-2014 HARSHAD RANDALL SYMPTOMS REFERABLE TO BACK 2374 NEOPLASM 02-21-2014 [facility] BHV OTH&UNSPEC ENDOCRN GLANDS 7840 HEADACHE 02-21-2014 [facility] 36633 DIARRHEA 02-21-2014 HARSHAD RANDALL 2359 NEOPLASM 02-16-2014 [...] AT 00 05 06 30 30 00 [place] Ac EN 78 -2 -3 .0 00 L- ti OL 11 8- 0- 00 07 MA ve OL 07 20 20 48 RT 80 17 17 95 25 1 44 PH AR MG MA CY TA BL #5 ET 91 CY 68 05 06 30 30 00 [place] Ac CL 64 -2 -3 .0 00 L- ti OB 50 8- 0- 00 07 MA ve EN 51 20 20 48 RT ZA 89 17 17 95 TX 0 45 PH IN AR E MA 10 CY MG #5 91 TA BL ET AL 16 05 06 30 30 00 [place] Ac LO 71 [...] ve LO 52 20 20 48 RT TX 05 17 17 95 AM 4 46 PH AR 20 MA CY MG #5 TA 91 BL ET FL 60 05 06 16 30 00 WA Ac UT 43 -2 -3 .0 00 L- ti IC 20 8- 0- 00 07 MA ve 26 20 20 48 RT ON 41 17 17 95 E 5 47 PH TX AR OP MA CY 50 #5 MC 91 G SP RA Y ME 68 05 06 60 30 00 WA Ac TF 64 -2 -3 .0 00 L- ti OR 50 8- 0- 00 07 MA ve VA 54 20 20 48 RT N 55 [...] HE #5 N 91 10 -3 25 TX 54 05 30 30 00 WA Ac [...] ME 68 05 06 60 30 00 [place] Ac TF 64 -0 -0 .0 00 L- ti OR 50 1- 2- 00 07 MA ve VA 54 20 20 48 RT N 55 17 17 54 HC 9 56 PH L AR 1, MA 00 CY 0 MG #5 91 TA BL ET CY 68 05 30 30 00 [place] Ac CL 64 -0 -0 .0 00 L- ti OB 50 1- 2- 00 07 MA ve EN 51 20 20 48 RT ZA 89 17 17 54 TX 0 57 PH IN AR E MA 10 CY MG #5 91 TA BL ET FL 60 05 06 16 30 00 KY Ac UT 43 -0 -0 .0 00 L- ti IC 20 1- 2- 00 07 MA ve 26 20 20 48 RT ON 41 17 17 54 E 5 88 PH TX AR OP MA CY 50 #5 MC 91 G SP RA Y ES 68 04 30 30 00 [place] Ac CI 64 -2 -0 .0 00 L- ti TA 50 8- 2- 00 07 MA ve LO 52 20 20 41 RT TX 05 17 17 81 AM 4 82 PH AR 20 MA CY MG #5 TA 91 BL ET LI 54 04 30 30 00 [place] Ac SI 45 -2 -0 .0 00 L- ti NO 80 8- 2- 00 07 MA ve TX 99 20 20 47 RT IL 91 17 17 87 0 87 PH 2. AR 5 MA MG CY TA #5 BL 91 ET AT 00 01 17 30 30 00 [place] Ac EN 78 -0 -0 .0 00 [...] OX 00 04 05 90 30 00 [place] Ac YC 40 -2 -2 .0 00 L- ti OD 60 4- 6- 00 02 MA ve ON 52 20 20 24 RT E- 30 17 17 00 AC 1 36 PH ET AR AM MA IN CY OP HE #5 N 91 10 -3 25 TX 54 04 05 30 30 00 WA [...] 50 7- 8- 00 07 MA ve VA 54 20 20 47 RT N 55 [...] ve LO 52 20 20 47 RT TX 05 17 17 87 AM 4 72 [...] 47 RT ZA 89 17 17 90 TX 0 45 PH IN AR E MA 10 CY MG #5 91 TA BL ET FL 60 03 04 16 30 00 WA Ac UT 43 -2 -2 .0 00 L- ti IC 20 7- 8- 00 07 MA ve 26 20 20 45 RT ON 41 17 17 53 E 5 94 PH TX AR OP MA CY 50 #5 MC 91 G SP RA Y LI 68 03 04 30 30 00 WA Ac SI 18 -2 -2 .0 00 L- ti NO 00 7- 8- 00 07 MA ve TX 51 20 20 47 RT IL 20 [...] HE #5 N 91 10 -3 25 TX 54 03 04 30 30 00 WA [...] 50 4- 1- 00 07 MA ve VA 54 20 20 47 RT N 55 [...] ve LO 52 20 20 46 RT TX 05 17 17 08 AM 4 69 [...] 47 RT ZA 89 17 17 32 TX 0 32 PH IN AR E MA [...] 17 17 53 E 5 94 PH TX AR OP MA CY 50 #5 MC 91 G SP RA Y TX 00 02 03 30 30 00 WA [...] 46 RT ZA 89 17 17 08 TX 0 68 PH IN AR E MA [...] ve LO 52 20 20 46 RT TX 05 17 17 08 AM 4 69 PH AR 20 MA CY MG #5 TA 91 BL ET ME 23 01 02 60 30 00 WA Ac TF 15 -2 -2 .0 00 L- ti OR 50 3- 4- 00 07 MA ve VA 10 20 20 46 RT N 41 [...] HE #5 N 91 10 -3 25 TX 54 12 30 30 00 WA Ac [...] 20 7- 7- 00 07 MA ve VA 75 20 20 46 RT N 81 [...] 16 17 56 E 5 83 PH TX AR OP MA CY 50 #5 MC [...] 46 RT ZA 09 16 17 08 TX 0 68 PH IN AR E MA 10 CY MG #5 91 TA BL ET ES 68 12 30 30 00 WA Ac CI 64 -2 -2 .0 00 L- ti TA 50 7- 7- 00 07 MA ve LO 52 20 20 46 RT TX 05 16 17 08 AM 4 69 [...] 0 RT 1 E- 30 16 16 VA AC 1 PH CH ET AR AE AM MA L IN CY S OP # HE N 10 10 05 -3 91 25 TX 54 01 02 2 30 30 WA 73 GA Ac AV 45 -0 -0 0. L- 94 IN ti 80 6- 5- 00 MA 01 EY ve TA 92 20 20 0 RT 6 TI 51 16 16 VA N 0 PH CH SO AR AE DI MA L UM CY S # 40 10 MG 05 91 TA B OM 60 01 02 2 30 30 WA 73 GA Ac EP 50 -0 -0 0. L- 94 IN ti RA 53 6- 5- 00 MA 01 EY ve ZO 95 20 20 0 RT 3 LE 20 16 16 [address] AR AE MA L 20 CY S # MG 10 CA 05 PS 91 UL E ES 68 01 02 2 30 30 WA 73 GA Ac CI 64 -0 -0 0. L- 94 IN ti TA 50 6- 5- 00 MA 01 EY ve LO 44 20 20 0 RT 4 TX 77 16 16 VA AM 0 PH CH AR AE 20 MA L CY S MG # TA 10 BL 05 ET 91 AT 51 01 02 2 30 30 WA 73 GA Ac EN 07 -0 -0 0. L- 94 IN ti OL 90 6- 5- 00 MA 01 EY ve OL 75 20 20 0 RT 7 96 16 16 VA 25 3 PH CH AR AE MG MA L CY S TA # BL ET 10 05 91 GE 31 01 02 2 60 30 WA 73 GA Ac MF 72 -0 -0 0. L- 94 IN ti IB 20 6- 5- 00 MA 01 EY ve RO 22 20 20 0 RT 5 ZI 50 16 16 VA L 5 PH CH 60 AR AE 0 MA L MG CY S # TA BL 10 ET 05 91 AL 16 01 02 2 30 30 WA 73 GA Ac LO 71 -0 -0 0. L- 94 IN ti PU 40 6- 5- 00 MA 01 EY ve RI 04 20 20 0 RT 2 NO 10 16 16 VA L 7 PH CH 10 AR AE 0 MA L MG CY S # TA BL 10 ET 05 91 CY 68 02 02 0 [address] Ac CL 64 -0 -0 0. L- 99 ON ti OB 50 5- 5- 00 MA 84 E ve EN 45 20 20 0 RT 3 DI ZA 09 16 16 XI TX 0 PH E IN AR D E MA 10 CY # MG 10 TA 05 BL 91 ET ON 53 01 02 0 50 25 WA 88 GA Ac ET 88 -1 -0 0. L- 32 IN ti OU 50 5- 5- 00 MA 98 EY ve CH 24 20 20 0 RT 1 45 16 16 VA UL 0 PH CH TR AR AE [...] Procedure [place] [address] [facility] ABDOMEN & 7 MEDICAL PELVIS IMAGING W/O ASS CONTRAST MATERIAL ECHO 56405 [facility] TTHRC R-T 7 [facility] 2D INC INC W/WOM-MOD E COMPL SPEC&COLR D RADEX 40900 [facility] FOOT 7 [facility] COMPLETE INC INC MINIMUM [address] [place] [address] [facility] UREA 7 [facility] NITROGEN INC INC QUANTITAT MENG LOCM Q9967 [facility] AMBULATOR [phone] 7 [facility] Y SURGERY MG/ML INC CENTER, IODINE L CONCENTRA TION PER ML CT THORAX 74002 [facility] 7 [facility] W/[place] [address] [facility] ABDOMEN & 7 [facility] PELVIS INC INC W/CONTRAS T MATERIAL COLLECTIO 41666 [facility] Rascon VENOUS 7 [facility] BLOOD INC INC VENIPUNCT URE CREATININ 82164 [facility] E BLOOD 7 [facility] [...] AIRWAY EQUIPME EQUIPME PRESSURE DEVICE DRUG TEST 15962 [facility] PRSMV 7 [facility] QUAL DIR INC INC OPTICAL OBS PER DAY CONTINUOU E0601 [facility] Kwon 7 HOME HOME POSITIVE MEDICAL MEDICAL AIRWAY EQUIPME EQUIPME PRESSURE DEVICE DRUG TEST 35807 [facility] PRSMV 7 [facility] QUAL DIR INC INC OPTICAL OBS PER DAY CONTINUOU E0601 GAYATHRI Kwon 7 HOME HOME POSITIVE MEDICAL MEDICAL AIRWAY EQUIPME EQUIPME PRESSURE DEVICE COMPREHEN 03754 [facility] SIVE 7 [facility] METABOLIC INC INC PANEL HEMOGLOBI 70949 [facility] N 7 [facility] GLYCOSYLA INC INC ERICA A1C COLLECTIO 86728 [facility] N VENOUS [address] [facility] BLOOD INC INC VENIPUNCT URE CONTINUOU E0601 GAYATHRI Kwon 7 HOME HOME POSITIVE MEDICAL MEDICAL AIRWAY EQUIPME EQUIPME PRESSURE DEVICE [facility] [address] [facility] 7 PHYSICIAN DAY S GROUP MANAGEMEN T 30 MIN/< [place] [address] [facility] R[facility] ABDOMEN & 7 MEDICAL PELVIS IMAGING W/O ASS CONTRAST MATERIAL SBSQ 93824 [facility] 7 PHYSICIAN CARE/DAY S GROUP 15 MINUTES FINAL G9638 [facility] REPORTS 7 MEDICAL W/O DOC IMAGING 1/MORE ASS DOSE REDUCTION TECH FINAL G9551 [facility] REPR ABD 7 MEDICAL IMAG STS IMAGING W/O ASS INCIDNT FND LES NTD: INITIAL [address] [place] [address] PHYSICIAN CARE/DAY S [place] [address] [place] [address] [facility] ABDOMEN & 7 MEDICAL PELVIS IMAGING W/O ASS CONTRAST MATERIAL CONTINUOU E0601 GAYATHRI Kwon 7 HOME HOME POSITIVE MEDICAL MEDICAL AIRWAY EQUIPME EQUIPME PRESSURE DEVICE DRUG TST G0477 [facility] PRESUMP;C 6 [facility] PBL BEING INC INC READ DC OPT OBV ONLY DRUG TEST G0481 [facility] DEFINITV [address] ID INC INC METH P DAY 8-[address] [place] [address] NIVIA PAINTERTELLY ABDOMEN & 6 MEDICAL PELVIS IMAGING W/O ASS CONTRAST MATERIAL POLYSOM 32464 [facility] PAVEZ 6/>YRS 6 PHYSICIAN SLEEP S GROUP W/CPAP 4/> ADDL DEMETRIUS ATTND CONTINUOU E0601 GAYATHRIBRENDAN TRINH S 6 HOME HOME POSITIVE MEDICAL MEDICAL AIRWAY EQUIPME EQUIPME PRESSURE DEVICE DRUG TEST G0481 [facility] DEFINITV [address] ID INC INC METH P DAY 8-14 [address] OPHTH 13788 DANNI DANNI MEDICAL 6 AYAH AYAH XM&EVAL [...] EQUIPME ARWAY PRESSURE DEVICE CONTINUOU E0601 [facility] RAMONRELL S 6 HOME HOME POSITIVE MEDICAL MEDICAL AIRWAY EQUIPME EQUIPME PRESSURE DEVICE HUMDIFIR E0562 GAY[facility]RI TRIHN HEATED 6 HOME HOME USED MEDICAL MEDICAL W/POS EQUIPME EQUIPME ARWAY PRESSURE DEVICE DRUG TEST G0481 [facility] DEFINITV [address] ID INC INC METH P DAY - DRUG CL SLEEP STD 03818 [facility] AIRFLOW 6 [facility] HRT INC INC RATE&O2 [place] [address]71 [facility] FAR[facility]AD ADJUVANTE 6 PHYSICIAN JASMYNE D VACCINE S GROUP FOR INTRAMUSC ULAR USE IM ADM 31360 [facility] PRQ ID 6 PHYSICIAN JASMYNE SUBQ/IM S GROUP NJXS 1 VACCINE DRUG TST G0477 [facility] PRESUMP;C 6 [facility] PBL BEING INC INC READ DC OPT OBV ONLY BONE 02008 [facility] &/JOINT 6 [facility] IMAGING INC INC WHOLE BODY TECHNETIU A9503 [facility] Arthur TC-99M 6 [facility] MEDRONATE INC INC DX UP TO 30 MCI COLLECTIO 59547 [facility] N VENOUS 6 [facility] BLOOD INC INC VENIPUNCT URE COMPREHEN 81177 [facility] SIVE 6 [facility] METABOLIC INC INC PANEL BLOOD 75264 [facility] COUNT 6 [facility] COMPLETE INC INC AUTO&AUTO DIFRNTL WBC DRUG TST G0477 [facility] PRESUMP;C 6 [facility] PBL BEING INC INC READ DC OPT OBV ONLY DRUG TEST G0481 [facility] DEFINITV 6 [facility] DR ID INC INC METH P DAY 8-14 DRUG CL COMPREHEN 12974 [facility] SIVE 6 [facility] [place] [address] [facility] ALL ABDOMEN & 6 MEDICAL PELVIS IMAGING W/[place] [address] [facility] ALL THORACIC 6 MEDICAL SPINE W/O IMAGING CONTRAST ASS MATERIAL THERAPEUT 15018 [facility] 6 PHYSICIAN JASMYNE PROPHYLAC S GROUP TIC/DX INJECTION SUBQ/IM INJECTION J1100 [facility] 6 PHYSICIAN JASMYNE DEXAMETHO S GROUP SONE [...] HOSP [facility] INC INC CT THORAX 67579 [facility] ALL 6 MEDICAL W/CONTRAS IMAGING T ASS MATERIAL BLOOD 89796 [facility] COUNT 6 [facility] COMPLETE INC INC AUTO&AUTO DIFRNTL WBC LOCM Q9967 [facility] [phone] 6 [facility] MG/ML INC INC IODINE CONCENTRA TION PER ML COMPREHEN 70835 [facility] SIVE 6 [facility] [address] [facility] THYROID 6 [facility] STIMULATI [place] [address] [facility] UREA 6 [facility] NITROGEN INC INC QUANTITAT MENG CREATININ 52631 [facility] E BLOOD 6 [facility] INC INC COLLECTIO 88318 [facility] N VENOUS 6 [facility] BLOOD INC INC VENIPUNCT URE UNCLASSIF J3490 [facility] IED DRUGS 6 [facility] INC INC LOCM Q9967 [facility] [phone] 6 [facility] MG/ML INC [place] [address] [facility] ABDOMEN & 6 [facility] PELVIS INC INC W/CONTRAS T MATERIAL CT THORAX 09066 [facility] 6 [facility] W/CONTRAS INC INC T MATERIAL BLOOD 31522 [facility] COUNT 6 [facility] COMPLETE INC INC AUTO&AUTO DIFRNTL WBC COMPREHEN 94082 [facility] SIVE 6 [facility] METABOLIC INC INC PANEL BLOOD 48992 [facility] COUNT 6 [facility] COMPLETE INC INC AUTO&[place] [address] [facility] INFUSION 6 [facility] THERAPY/P INC INC ROPHYLAXI S /DX 1ST TO 1 HR INJECTION J9299 [facility] 6 [facility] NIVOLUMAB INC INC 1 MG CHEMOTX 49104 [facility] ADMN IV 6 [facility] NFS TQ UP INC INC 1 HR 1/ SBST/DRUG BLOOD 51623 [facility] COUNT 6 [facility] COMPLETE INC INC AUTO&AUTO DIFRNTL WBC BASIC 86447 [facility] METABOLIC 6 [facility] [address] [facility] ALL ABDOMEN & 5 MEDICAL PELVIS IMAGING W/CONTRAS ASS T MATERIAL CT THORAX 38931 [facility] ALL 5 MEDICAL W/CONTRAS IMAGING T ASS MATERIAL CHEMOTX 19979 ELENOIVONNE JOHANSEN ADMN IV 5 [facility] NFS TQ UP INC INC 1 HR SBST/DRUG BLOOD 22363 [facility] COUNT 5 [facility] COMPLETE INC INC AUTO&AUTO DIFRNTL WBC COMPREHEN 68443 [facility] SIVE 5 [facility] METABOLIC INC INC PANEL INJECTION C9453 [facility] 5 [facility] NIVOLUMAB INC INC 1 MG BLOOD 85981 [facility] COUNT 5 [facility] COMPLETE INC INC AUTO&AUTO DIFRNTL WBC CHEMOTX 83021 [facility] ADMN IV 5 [facility] NFS TQ UP INC INC 1 HR SBST/DRUG IIV3 75165 [facility]IAN JASMYNE SPLIT S GROUP VIRUS 0.5 ML DOSAGE IM USE IM ADM 34249 [facility] PRQ ID 5 PHYSICIAN JASMYNE SUBQ/IM S GROUP NJXS 1 VACCINE CHEMOTX 70107 ELENO JOHANSEN ADMN IV 5 [facility] NFS TQ UP INC INC 1 HR SBST/DRUG COMPREHEN 46520 [facility] SIVE 5 [facility] [place] [address] ELENO JOHANSEN ABDOMEN 5 [facility] W/CONTRAS INC INC T MATERIAL COLLECTIO 39652 ELENO JOHANSEN N VENOUS 5 [facility] BLOOD INC INC VENIPUNCT URE LOCM Q9967 ELENO JOHANSEN [phone] [facility] MG/ML INC INC IODINE CONCENTRA TION PER ML BLOOD 90067 ELENO [facility]ANSEN COUNT 5 [facility] COMPLETE INC INC AUTO&AUTO DIFRNTL WBC CT THORAX 42245 [facility]ANSEN 5 [facility] W/CONTRAS INC INC T MATERIAL BLOOD 54978 ELENO [facility]OHANSEN COUNT 5 [facility] COMPLETE INC INC AUTO&AUTO DIFRNTL WBC CHEMOTX 98991 ELENO TAYLORON ADMN IV 5 [facility] NFS TQ UP INC INC 1 HR / SBST/DRUG CHEMOTX 09642 ELENO ELENO ADMN IV 5 [facility] NFS TQ UP INC INC 1 HR / SBST/DRUG BLOOD 76396 EL[facility]OHANSEN COUNT 5 [facility] COMPLETE INC INC AUTO&AUTO DIFRNTL WBC BLOOD 21123 ELENO JOHANSEN COUNT 5 [facility] COMPLETE INC INC AUTO&AUTO DIFRNTL WBC COMPREHEN 15942 ELENO [facility]EN SIVE 5 [facility] METABOLIC INC INC PANEL CHEMOTX 10102 ELENO JOHANSEN ADMN IV 5 [facility] NFS TQ UP INC INC 1 HR SBST/DRUG COLLECTIO 66939 ELENO JOHANSEN N VENOUS 5 [facility] BLOOD INC INC VENIPUNCT URE CHEMOTHER 89651 ELENO JOHANSEN APY ADMN 5 [facility] IV INC INC INFUSION TQ EA HR CHEMOTX 28206 ELENO JOHANSEN ADMN IV 5 [facility] NFS TQ UP INC INC 1 HR SBST/DRUG COMPREHEN 88459 EL[facility] SIVE 5 [facility] METABOLIC INC INC PANEL BLOOD 01356 ELENO JOHANSEN COUNT 5 [facility] COMPLETE INC INC AUTO&[place] [address] ELENO JOHANSEN ABDOMEN & 5 [facility] PELVIS INC INC W/CONTRAS T MATERIAL CT THORAX 22543 [facility] 5 [facility] W/CONTRAS INC INC T MATERIAL LOCM Q9967 ELENO JOHANSEN [phone] [facility] MG/ML INC INC [place] [address] ELENO JOHANSEN AMYLASE 5 [facility] INC INC BLOOD 56757 ELENO JOHANSEN COUNT 5 [facility] COMPLETE INC INC AUTO&[place] [address] ELENO JOHANSEN LIPASE 5 [facility] INC INC COMPREHEN 24498 ELEON JOHANSEN SIVE 5 [facility] METABOLIC INC INC PANEL COLLECTIO 79943 ELENO JOHANSEN N VENOUS 5 [facility] BLOOD INC INC VENIPUNCT URE COLLECTIO 63984 ELENO JOHANSEN N VENOUS 5 [facility] BLOOD INC INC VENIPUNCT URE BLOOD 37851 ELENO [facility]OHANSEN COUNT 5 [facility] COMPLETE INC INC AUTO&[place] [address] ELENO JOHANSEN ERYTHROPO 5 [facility] IETIN INC INC COMPREHEN 01118 EL[facility]OHANSEN SIVE 5 [facility] [place] [address] [place] DA[facility] ABDOMEN & 5 [facility] SHE[facility]VIS IMAGING W/O ASS CONTRAST [facility] 102[address] [facility] DISCHARGE 5 CARE R H DAY ASSOCIATE MANAGEMEN S T 30 MIN/< SBSQ 44785 [place] [address] CARE R H CARE/DAY ASSOCIATE 15 S MINUTES INITIAL 04295 [facility] 5 PHYSICIAN CONSULT S GROUP NEW/ESTAB PT 55 MIN INITIAL 71971 [place] [address] CARE R H CARE/DAY ASSOCI[place] [address] [place] [address] [facility] ROGER ALL ABDOMEN & 5 MEDICAL PELVIS IMAGING W/O ASS CONTRAST MATERIAL RADEX 99368 ELENOIVONNE TAYLORON SPINE 5 [facility] LUMBOSACR INC INC AL MINIMUM 4 VIEWS RADEX 52905 [facility] ELENO SPINE 5 [facility] CERVICAL INC INC 4 OR 5 VIEWS HOSPITAL 86359 [facility] DISCHARGE 5 CARE R H DAY ASSOCIATE MANAGEMEN S T 30 MIN/< SBSQ 55713 [facility] 5 PHYSICIAN CARE/DAY S GROUP [address] THORAX 17080 [place] DANA W/O 5 MEDICAL SHELIA CONTRAST IMAGING MATERIAL ASS INITIAL 32765 [facility] INPATIENT 5 PHYSICIAN CONSULT S GROUP NEW/ESTAB PT 55 MIN INITIAL 58617 [facility] 5 CARE R H CARE/DAY ASSOCIATE [address] [place] [address] NIVIA DANA ABDOMEN & 5 MEDICAL SHELIA PELVIS IMAGING W/CONTRAS ASS T MATERIAL ECG 24425 [facility] 4 JOSE F IMT ECG EMERGENCY W/LEAST PHYS 12 LDS I&R ONLY URINLS 80652 HARSHAD RANDALL HARSHAD RANDALL DIP 4 STICK/TAB LET REAGNT NON-AUTO MICRSCPY METANEPHR 53351 [facility] 4 DIAGNOSTI DIAGNOSTI CS CS LIPID 14237 HARSHAD PassmanES RANDALL PANEL 4 LOCM Q9967 ELENO JOHANSEN [phone] [facility] MG/ML INC INC IODINE CONCENTRA TION PER ML CT THORAX 95970 [facility] JOHANSEN 4 [facility] W/[place] [address] DANA DANA ABDOMEN & 4 SHELIA SHELIA PELVIS W/O CONTRAST MATERIAL Encounters Encounter Start End Date Code Location Performer Type Date OFFICE 83203 [facility] LISETTE VALERA 7 7 PHYSICIAN A T NEW 60 S GROUP MINUTES EMERGENCY 91339 DANAY LLAMAS DEPT 7 7 PHYSICIAN VISIT S, PLLC HIGH [facility]VERITY& THREAT [facility] EL[facility] - 7 7 [facility] 7 7 [facility] OUT[facility] T OFFICE 09432 [facility] OUTHSANEN 7 7 PHYSICIAN T VISIT S GROUP 15 MINUTES OFFICE 16496 [facility] PHYSICIAN T VISIT S GROUP 25 MINUTES [facility] - 7 7 [facility] - [address] [facility] T OFFICE 88947 [facility] OUTPATIEN 7 7 PHYSICIAN T VISIT S GROUP 25 MINUTES OFFICE 52915 [facility] OUT[facility]IEN 7 7 PHYSICIAN T VISIT S GROUP 25 MINUTES HOSPITAL [facility] - 7 7 [facility] OUTPATIEN INC T OFFICE 65475 [facility] OUTPATI[facility] 7 7 PHYSICIAN T VISIT S GROUP 25 MINUTES HOSPITAL [facility] - 7 7 [facility] INPATIENT INC EMERGENCY 71816 [facility] DEPT 7 7 PHYSICIAN VISIT S, [facility] HIGH [facility]VERITY& THREAT [facility] OFFICE 34929 EL[facility] SMITH OUTPATIEN 6 6 [facility] VISIT 5 HOSPITAL MINUTES [facility] EL[facility] - 6 6 [facility] OUTPATIEN [facility] OFFICE 85863 [facility] OUTPATI[facility] 6 6 PHYSICIAN T VISIT S GROUP 15 MINUTES EMERGENCY 35722 [facility] DEPT 6 6 PHYSICIAN VISIT S, [facility] HIGH SEVERITY& THREAT [facility] - 6 6 [facility] OUTPATIEN [facility] - 6 6 [facility] - 6 6 [facility] OUTPATIEN [facility] OFFICE 34808 [facility] OUTPATI[facility] 6 6 PHYSICIAN JASMYNE T VISIT S GROUP 15 MINUTES HOSPITAL [place] - 6 6 [facility] OUTPATIEN [facility]PITAL [place] - 6 6 [facility] OUTPATIEN [facility] OFFICE 07033 [facility] OUTPATI[facility] 6 6 PHYSICIAN JASMYNE T VISIT S GROUP 15 MINUTES OFFICE 69634 [facility] SMITH OUTPATIEN 6 6 [facility] 10 P [facility] - 6 6 [facility] OUTPATIEN INC T OFFICE 87816 [facility] SMITH OUTPATIEN 6 6 [facility] T [facility] 15 P MINUTES HOSPITAL [facility] - 6 6 [facility] OUTPATIEN INC T OFFICE 34019 [facility] OUTPATI[facility] 6 6 PHYSICIAN JASMYNE T VISIT S GROUP 15 MINUTES HOSPITAL [facility] - 6 6 [facility] OUTPATIEN INC T OFFICE 40813 [facility] OUTPATI[facility] 6 6 PHYSICIAN JASMYNE T VISIT 5 S GROUP MINUTES [facility]OSPITAL [facility] - 6 6 [facility] OUTPATIEN INC T EMERGENCY 13598 [facility] DEPT 6 6 PHYSICIAN JASMYNE VISIT S, [facility] HIGH SEVERITY& THREAT [facility] - 6 6 [facility] OUTPATIEN INC T OFFICE 69504 [facility] OUTPATI[facility] 6 6 PHYSICIAN JASMYNE T VISIT S GROUP 15 MINUTES HOSPITAL [facility] - 6 6 [facility] OUTPATIEN INC T OFFICE 29764 [facility] OUT[facility] 6 6 PHYSICIAN JASMYNE T VISIT S GROUP 10 MINUTES HOSPITAL [facility] - 6 6 [facility] OUTPATIEN INC T OFFICE 68111 [facility] OUT[facility] 6 6 PHYSICIAN JASMYNE T VISIT S GROUP 15 MINUTES OFFICE 86032 [facility] OUT[facility] 6 6 PHYSICIAN JASMYNE T VISIT S GROUP 10 MINUTES OFFICE 34857 [facility] SMITH OUTPATIEN 6 6 [facility] T [facility] 10 P MINUTES HOSPITAL [facility] - 6 6 [facility] OUTPATIEN INC T OFFICE 55093 [facility] OUTPATI[facility] 6 6 PHYSICIAN JASMYNE T VISIT S GROUP 10 MINUTES [facility]OSPITAL [facility] - 6 6 [facility] OUTPATIEN INC T OFFICE 29216 [facility] SMITH OUTPATIEN 6 6 [facility] 10 P MINUTES HOSPITAL [place] - 6 6 [facility] OUTPATIEN [facility] [place] - 6 6 [facility] OUTPATIEN INC T OFFICE 77338 [facility] OUTPATIEN 6 6 PHYSICIAN JASMYNE T VISIT S GROUP 10 MINUTES OFFICE 62690 [facility] SMITH OUTPATIEN 6 6 [facility] 10 P [facility] - 6 6 [facility] OUTPATIEN INC T OFFICE 91828 [facility] SMITH OUTPATIEN 6 6 [facility] 10 P MINUTES HOSPITAL [place] - [address] [facility] T OFFICE 11662 [facility] OUTPATIEN 6 6 PHYSICIAN JASMYNE T VISIT S GROUP 15 MINUTES OFFICE 50117 [place] SMITH OUTPATIEN 5 5 [facility] 10 P MINUTES OFFICE 65797 [facility] OUTPATI[facility] 5 5 PHYSICIAN JASMYNE T VISIT S GROUP 10 MINUTES [facility]OSPITAL [place] - 5 5 [facility] OUTPATIEN INC T OFFICE 24494 [place] SMITH OUTPATIEN 5 5 [facility] 5 HOSPITAL MINUTES P [facility]OSP[facility] [place] - 5 5 [facility]PATIEN [facility] [place] - 5 5 [facility] OUTPATIEN INC T OFFICE 90011 [facility] OUTPATIEN 5 5 PHYSICIAN JASMYNE T VISIT S GROUP 10 MINUTES OFFICE 02961 [facility] SMITH OUTPATIEN 5 5 [facility] 10 P MINUTES HOSPITAL E[facility] - 5 5 [facility] INC T [facility] [place] - 5 5 [facility] T [facility] [place] - 5 5 [facility] INC T OFFICE 59689 [facility] OUTPATI[facility] 5 5 PHYSICIAN JASMYNE T VISIT S GROUP 25 MINUTES [facility] [place] - 5 5 [facility] OUTPATIEN INC T OFFICE 83604 [place] SMITH OUTPATIEN 5 5 [facility] T VISIT 5 HOSPITAL MINUTES P [facility] - 5 5 [facility] OUTPATIEN INC T OFFICE 93726 [facility] OUTPAT[facility] 5 5 PHYSICIAN JASMYNE T VISIT S GROUP 10 MINUTES [facility]OSP[facility] [place] - 5 5 [facility] OUTPATIEN INC T OFFICE 37644 [place] SMITH OUTPATIEN 5 5 [facility] T VISIT 5 HOSPITAL MINUTES P OFFICE 08138 [facility] OUTPATIEN 5 5 PHYSICIAN JASMYNE T VISIT S GROUP 15 MINUTES OFFICE 74042 [facility] SMITH OUTPATIEN 5 5 [facility] T VISIT HOSPITAL 10 P MINUTES OFFICE 30124 [facility] SRINIVAS TOD OUTPATIEN 5 5 PHYSICIAN T VISIT S GROUP 15 MINUTES [facility] - 5 5 [facility] OUTPATIEN INC T OFFICE 93018 [facility] SRINIVAS TOD OUTPATIEN 5 5 PHYSICIAN T VISIT S GROUP 15 MINUTES [facility] [place] - 5 5 [facility] OUTPATIEN INC T OFFICE 23703 [facility] OUTPATIEN 5 5 PHYSICIAN JASMYNE T VISIT S GROUP 15 MINUTES OFFICE 01772 [facility] SMITH OUTPATIEN 5 5 [facility] T VISIT HOSPITAL 10 P MINUTES [facility]OSPITAL [facility] - 5 5 [facility]YS[facility] JASMYNE VISIT S, [facility] HIGH SEVERITY& THREAT FUNJ OFFICE 12864 [facility] TOD OUTPATIEN 5 5 PHYSICIAN T VISIT S GROUP 15 MINUTES OFFICE 32794 [facility] [facility] OUTPATIEN 5 5 [facility] 45 HOSPITAL MINUTES P EMERGENCY 57865 DANAY [facility] DEPT 5 5 PHYSICIAN JASMYNE VISIT S, [facility] HIGH [facility]VERITY& THREAT FUN [facility]OS[facility] [place] - 5 5 [facility] INC T OFFICE 38834 [facility] OUTPATIEN 5 5 [facility] T VISIT URGENT 25 TREAT MINUTES OFFICE 60911 [facility] TOD OUTPATIEN 5 5 PHYSICIAN T VISIT S GROUP 15 MINUTES [facility]OSP[facility] [place] - 5 5 [facility] INPATIENT INC EMERGENCY 80219 [place] [facility] 5 5 [facility] T VISIT P HIGH/URGE NT SEVERITY EMERGENCY 62845 [facility] AL[facility] 4 [address] [facility] EMERGENCY T VISIT PHYS MODERATE SEVERITY EMERGENCY 82132 [facility] FRANCIS 4 4 JOSE F [facility] EMERGENCY T VISIT PHYS HIGH/URGE NT SEVERITY OFFICE 04078 HARSH[facility] RANDALL [facility] R[facility] OUTPATIEN 4 4 T VISIT 15 MINUTES OFFICE 39860 HARSHAD RANDALL [facility] OUTPATIEN 4 4 T VISIT 15 MINUTES OFFICE 73970 HARSHAD RANDALL [facility] OUTPATIEN 4 4 T VISIT 25 MINUTES [facility]OSP[facility] - 4 4 [facility] OUTPATIEN INC T OFFICE 13301 HARSHAD RANDALL HARSHAD RANDALL OUTPATIEN 4 4 T VISIT 25 MINUTES EMERGENCY 34028 [facility] DEPT 4 4 VINCE CLARKE VISIT HIGH SEVERITY& THREAT FUN EMERGENCY 48930 [facility]IRA 4 4 [facility] VIS[facility] MODERATE SEVERITY
--- OUTSIDE RECORDS SUMMARY | 2017-06-29 16:32 | External Medical Summary Rpt | CCD ---
Author Author , VITO Organization [facility] Address Unknown Phone [email or web address] Care Team Providers Care Poacher Operator Name Role Phone ALFARIS MOH, ALFARIS Unavailable [...] Unavailable FARHAD JASMYNE, FARHAD Unavailable Unavailable JASMYNE [facility] Unavailable Unavailable INC, [facility] Unavailable Unavailable [facility] P, [facility], Unavailable Unavailable [facility] WHIPPLE, WHIPPLE Unavailable Unavailable JABARI NAN, JABARI Unavailable Unavailable NAN FRANCIS IMT, FRANCIS Unavailable Unavailable IMT [facility] Unavailable Unavailable IMAGING ASS, [facility] HARSHAD RANDALL, HARSHAD RANDALL Unavailable Unavailable HARSHAD RANDALL, HARSHAD RANDALL Unavailable Unavailable [facility] Unavailable Unavailable URGENT TREAT, [facility], Unavailable Unavailable [...] Unavailable [facility] # Unavailable Unavailable [id number], [facility] # [id number] Purpose Continuity of Care Document - 02-01-2014 through 2016 Problems Code Diagnosis DOS Provider Status C649 MALIGNANT 05-06-2017 [facility] NEOPLASM PHYSICIANS UNS KIDNEY GROUP EXCEPT RENL PELVIS E785 HYPERLIPIDE 05-06-2017 [facility] KEYON PHYSICIANS UNSPECIFIED GROUP R079 CHEST PAIN 05-06-2017 [facility] UNSPECIFIED PHYSICIANS GROUP Z8679 PERSONAL 05-06-2017 [facility] HISTORY OT PHYSICIANS DISEASES GROUP CIRCULATORY SYSTEM C641 MALIGNANT 04-25-2017 [facility] NEOPLASM RT PHYSICIANS, KIDNEY PLLC EXCEPT RENAL PELVIS C7901 SECONDARY 04-25-2017 [facility] MALIG PHYSICIANS, NEOPLASM RT PLLC KIDNEY & RENAL PELV R1032 LEFT LOWER 04-25-2017 [facility] QU[facility]ANT PHYSICIANS, PAIN PLLC R1084 GENERALIZED 04-25-2017 [facility] ABDOMINAL [facility]ICAL PAIN IMAGING ASS R160 HEPATOMEGAL 04-25-2017 [facility] Y NOT MEDICAL ELSEWHERE IMAGING ASS CLASSIFIED [id number] PAIN IN 03-19-2017 [facility] LEFT FOOT MEDICAL IMAGING ASS R011 CARDIAC 03-19-2017 [facility] UNSPECIFIED INC C7800 SECONDARY 02-06-2017 [facility] NEOPLASM OF INC UNSPECIFIED LUNG K5730 DIVERTICULO 02-06-2017 [facility] SIS LG MEDICAL INTEST W/O IMAGING ASS PERF/ABSC W/O BLEED R590 LOCALIZED 02-06-2017 [facility] ENLARGED MEDICAL LYMPH NODES IMAGING ASS R911 SOLITARY 02-06-2017 [facility] PULMONARY MEDICAL NODULE IMAGING ASS Z0389 ENCOUNTER 02-06-2017 [facility]BS[facility]TH [facility] SUSPCT DZ & INC COND RULED OUT E119 TYPE 2 02-03-2017 [facility] DIABETES PHYSICIANS MELLITUS GROUP WITHOUT COMPLICATIO NS I10 ESSENTIAL 02-03-2017 [facility] PRIMARY PHYSICIANS HYPERTENSIO GROUP N [id number] OTHER LONG 02-03-2017 [facility] TERM PHYSICIANS CURRENT GROUP DRUG THERAPY G4733 OBSTRUCTIVE 01-19-2017 [facility] SLEEP HOME APNEA ADULT MEDICAL PEDIATRIC EQUIPME J40 BRONCHITIS 10-06-2016 [facility] NOT PHYSICIANS SPECIFIED GROUP ACUTE OR CHRONIC C7989 SECONDARY 09-22-2016 [facility] NEOPLASM INC OTH SPECIFIED SITES E118 TYPE 2 09-22-2016 [facility] DIABETES PHYSICIANS MELLITUS GROUP W/UNS COMPLICATIO NS E871 HYPO-OSMOLA 09-22-2016 [facility] LITY AND PHYSICIANS HYPONATREMI GROUP A K8590 ACUTE 09-22-2016 [facility] PANCREATITI PHYSICIANS S WO GROUP NECROSIS/IN FECTION UNSPEC Z720 TOBACCO USE 09-22-2016 [facility] PHYSICIANS GROUP K8580 OTHER ACUTE 09-21-2016 [facility] PH[facility]ICIANS, PANCREATITI [facility] S WO NECROSIS/IN FECTION R109 UNSPECIFIED 09-21-2016 [facility] ABDOMINAL [facility]ICAL PAIN IMAGING ASS R110 NAUSEA 09-21-2016 [facility] Z23447 PERSONAL 09-21-2016 [facility] HISTORY MEDICAL OTHER IMAGING ASS MALIGNANT NEOPLASM KIDNEY K5731 DIVERTICULO 09-03-2016 [facility] SIS LG PHYSICIANS, INTEST W/O PLLC PERF/ABSC W/BLEED R1031 RIGHT LOWER 09-03-2016 [facility] PAIN IMAGING ASS G4713 RECURRENT 08-27-2016 [facility] HYPERSOMNIA PHYSICIANS GROUP J984 OTHER 08-27-2016 [facility] DISORDERS PHYSICIANS OF LUNG GROUP H527 UNSPECIFIED 07-28-2016 [facility] AYAH DISORDER OF REFRACTION Z23 ENCOUNTER 06-16-2016 [facility] FOR PHYSICIANS IMMUNIZATIO GROUP N M546 PAIN IN 05-13-2016 [facility] THORACIC MEDICAL SPINE IMAGING ASS Z905 ACQUIRED 05-13-2016 [facility] ABSENCE OF MEDICAL KIDNEY IMAGING ASS G4730 SLEEP APNEA 04-30-2016 [facility] PHYSICIANS UNSPECIFIED GROUP M7711 LATERAL 04-30-2016 [facility] EPICONDYLIT PHYSICIANS IS RIGHT GROUP ELBOW E875 HYPERKALEMI 04-24-2016 [facility] A PHYSICIANS GROUP 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 [facility] ADRENAL MEDICAL GLAND IMAGING ASS UNSPECIFIED 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 C7970 SECONDARY 02-18-2016 [facility] MALIGNANT [facility] P UNS ADRENAL GLAND J302 OTHER 02-18-2016 [facility] SEASONAL PHYSICIANS ALLERGIC GROUP RHINITIS R918 OTHER 02-14-2016 [facility] NONSPECIFIC MEDICAL ABNORMAL IMAGING ASS FINDING OF LUNG FIELD R739 HYPERGLYCEM 10-19-2015 [facility] IA PHYSICIANS UNSPECIFIED GROUP Z5111 ENCOUNTER 10-10-2015 [facility] P TIC CHEMOTHERAP Y Z5181 ENCOUNTER 07-16-2015 [facility] THERAPEUTIC [facility] DRUG LEVEL MONITORING N281 CYST OF 06-29-2015 [facility] KIDNEY MEDICAL ACQUIRED IMAGING ASS L31980 RETIREMENT 06-14-2015 [facility] CURRENT USE PHYSICIANS OF OPIATE GROUP ANALGESIC 1890 MALIGNANT 06-04-2015 [facility] NEOP[facility]M OF [facility] KIDNEY INC EXCEPT PELVIS V5811 ENCOUNTER 06-04-2015 [facility] ANTINEOPLAS INC TIC CHEMOTHERAP Y V5869 LONG-TERM 05-15-2015 [facility] (CURRENT) PHYSICIANS USE OF GROUP OTHER MEDICATIONS 25086 OVERWEIGHT 04-23-2015 [facility] PHYSICIANS GROUP 4019 UNSPECIFIED 04-23-2015 [facility] ESSENTIAL PHYSICIANS HYPERTENSIO GROUP N 25764 DIVERTICULI 04-23-2015 [facility] TIS OF PHYSICIANS COLON GROUP 82785 DIVERTICULI 04-11-2015 [facility] TIS OF PHYSICIANS COLON WITH GROUP HEMORRHAGE 46882 ABDOMINAL 04-11-2015 [facility] PAIN, LEFT PHYSICIANS LOWER GROUP QUADRANT 01379 ABDOMINAL 04-11-2015 [facility] PAIN, PHYSICIANS PERIUMBILIC GROUP 27750 ABDOMINAL 04-11-2015 [facility] PAIN OTHER PHYSICIANS SPECIFIED GROUP SITE V1052 PERSONAL 04-11-2015 [facility] HISTORY OF PHYSICIANS MALIGNANT GROUP NEOPLASM OF KIDNEY 2559 UNSPECIFIED 04-06-2015 [facility] DISORDER MEDICAL OF ADRENAL IMAGING ASS GLANDS 5180 PULMONARY 04-06-2015 [facility] COLLAPSE MEDICAL IMAGING ASS 10389 UNSPEC 04-06-2015 [facility] VENTRAL MEDICAL LUIS W/O IMAGING ASS MENTION OBST/GANGRE N 7856 ENLARGEMENT 04-06-2015 [facility] OF LYMPH MEDICAL NODES IMAGING ASS 62989 ABDOMINAL 04-06-2015 [facility] PAIN, [facility] UNSPECIFIED INC SITE 95039 OTHER 04-06-2015 [facility] NONSPECIFIC MEDICAL ABNORMAL IMAGING ASS FINDING OF LUNG FIELD 2724 OTHER AND 03-23-2015 [facility] UNSPECIFIED PHYSICIANS GROUP HYPERLIPIDE KEYON V4573 ACQUIRED 02-28-2015 [facility] ABSENCE OF MEDICAL KIDNEY IMAGING ASS 2357 NEOPLASM 02-07-2015 [facility] P TRACH BRONCHUS&STEFANI NG 7231 CERVICALGIA 01-25-2015 [facility] 7245 UNSPECIFIED 01-25-2015 [facility] BACKACHE MEDICAL IMAGING ASS 68855 DIVERTICULO 01-24-2015 [facility] COLON URGENT TREAT 5770 ACUTE 01-24-2015 [facility] S URGENT TREAT 7242 LUMBAGO 01-24-2015 [facility] URGENT TREAT 25027 LEUKOCYTOSI 01-10-2015 [facility] S PHYSICIANS UNSPECIFIED GROUP 4011 ESSENTIAL 01-10-2015 [facility] HYPERTENSIO PHYSICIANS N, BENIGN GROUP 31905 COR 01-10-2015 [facility] ATHEROSLERO PHYSICIANS UNSPEC GROUP TYPE VESSEL UNITED [place]/NONA T 7880 RENAL COLIC 01-09-2015 [facility] 7881 DYSURIA 01-09-2015 [facility] 90962 SOLITARY 01-09-2015 [facility] PULMONARY [facility] NODULE INC 4739 UNSPECIFIED 07-18-2014 [facility] PH[facility] 91263 PAIN IN 07-18-2014 [facility] JOINT, N EMERGENCY ANKLE AND PHYS FOOT 14724 TENOSYNOVIT 07-18-2014 [facility] IS OF FOOT N EMERGENCY AND ANKLE PHYS 5990 URINARY 06-16-2014 [facility] N EMERGENCY INFECTION PHYS SITE NOT SPECIFIED 7804 DIZZINESS 06-16-2014 [facility] AND N EMERGENCY GIDDINESS PHYS 17741 GENERALIZED 05-06-2014 [facility]SH[facility] RANDALL ANXIETY DISORDER 7248 OTHER 03-23-2014 [facility] SYMPTOMS REFERABLE TO BACK 2374 NEOPLASM 02-21-2014 [facility] BHV OTH&UNSPEC ENDOCRN GLANDS 7840 HEADACHE 02-21-2014 [facility] 41106 DIARRHEA 02-21-2014 [facility]AND[facility] 2359 NEOPLASM 02-16-2014 [...] AT 00 05 06 30 30 00 NM Ac EN 78 -2 -3 .0 00 L- ti OL 11 8- 0- 00 07 MA ve OL 07 20 20 48 RT 80 17 17 95 25 1 44 PH AR MG MA CY TA BL #5 ET 91 CY 68 05 06 30 30 00 NM Ac CL 64 -2 -3 .0 00 L- ti OB 50 8- 0- 00 07 MA ve EN 51 20 20 48 RT ZA 89 17 17 95 NE 0 45 PH IN AR E MA 10 CY MG #5 91 TA BL ET AL 16 05 06 30 30 00 NM Ac LO 71 -2 -3 .0 00 [...] ve LO 52 20 20 48 RT NE 05 17 17 95 AM 4 46 PH AR 20 MA CY MG #5 TA 91 BL ET FL 60 05 06 16 30 00 WA Ac UT 43 -2 -3 .0 00 L- ti IC 20 8- 0- 00 07 MA ve 26 20 20 48 RT ON 41 17 17 95 E 5 47 PH NE AR OP MA CY 50 #5 MC 91 G SP RA Y ME 68 05 06 60 30 00 WA Ac TF 64 -2 -3 .0 00 L- ti OR 50 8- 0- 00 07 MA ve RI 54 20 20 48 RT N 55 17 17 95 HC 9 49 PH L AR 1, MA 00 CY 0 MG #5 91 TA BL ET LO 68 05 30 30 00 NM Ac SA 64 -2 -2 .0 00 [...] E GA 53 05 90 30 00 NM Ac BA 74 -2 -2 .0 00 [...] HE #5 N 91 10 -3 25 NE 54 05 30 30 00 WA Ac [...] ME 68 05 06 60 30 00 NM Ac TF 64 -0 -0 .0 00 L- ti OR 50 1- 2- 00 07 MA ve RI 54 20 20 48 RT N 55 17 17 54 HC 9 56 PH L AR 1, MA 00 CY 0 MG #5 91 TA BL ET CY 68 05 30 30 00 NM Ac CL 64 -0 -0 .0 00 L- ti OB 50 1- 2- 00 07 MA ve EN 51 20 20 48 RT ZA 89 17 17 54 NE 0 57 PH IN AR E MA 10 CY MG #5 91 TA BL ET FL 60 05 06 16 30 00 NM Ac UT 43 -0 -0 .0 00 L- ti IC 20 1- 2- 00 07 MA ve 26 20 20 48 RT ON 41 17 17 54 E 5 88 PH NE AR OP MA CY 50 #5 MC 91 G SP RA Y ES 68 04 30 30 00 NM Ac CI 64 -2 -0 .0 00 L- ti TA 50 8- 2- 00 07 MA ve LO 52 20 20 41 RT NE 05 17 17 81 AM 4 82 PH AR 20 MA CY MG #5 TA 91 BL ET LI 54 04 30 30 00 NM Ac SI 45 -2 -0 .0 00 L- ti NO 80 8- 2- 00 07 MA ve NE 99 20 20 47 RT IL 91 17 17 87 0 87 PH 2. AR 5 MA MG CY TA #5 BL 91 ET AT 00 01 17 30 30 00 NM Ac EN 78 -0 -0 .0 00 [...] OX 00 04 05 90 30 00 NM Ac YC 40 -2 -2 .0 00 L- ti OD 60 4- 6- 00 02 MA ve ON 52 20 20 24 RT E- 30 17 17 00 AC 1 36 PH ET AR AM MA IN CY OP HE #5 N 91 10 -3 25 NE 54 04 05 30 30 00 WA [...] 50 7- 8- 00 07 MA ve RI 54 20 20 47 RT N 55 [...] ve LO 52 20 20 47 RT NE 05 17 17 87 AM 4 72 [...] 47 RT ZA 89 17 17 90 NE 0 45 PH IN AR E MA 10 CY MG #5 91 TA BL ET FL 60 03 04 16 30 00 WA Ac UT 43 -2 -2 .0 00 L- ti IC 20 7- 8- 00 07 MA ve 26 20 20 45 RT ON 41 17 17 53 E 5 94 PH NE AR OP MA CY 50 #5 MC 91 G SP RA Y LI 68 03 04 30 30 00 WA Ac SI 18 -2 -2 .0 00 L- ti NO 00 7- 8- 00 07 MA ve NE 51 20 20 47 RT IL 20 [...] HE #5 N 91 10 -3 25 NE 54 03 04 30 30 00 WA [...] 50 4- 1- 00 07 MA ve RI 54 20 20 47 RT N 55 [...] ve LO 52 20 20 46 RT NE 05 17 17 08 AM 4 69 [...] 47 RT ZA 89 17 17 32 NE 0 32 PH IN AR E MA [...] 17 17 53 E 5 94 PH NE AR OP MA CY 50 #5 MC 91 G SP RA Y NE 00 02 03 30 30 00 WA [...] 46 RT ZA 89 17 17 08 NE 0 68 PH IN AR E MA [...] ve LO 52 20 20 46 RT NE 05 17 17 08 AM 4 69 PH AR 20 MA CY MG #5 TA 91 BL ET ME 23 01 02 60 30 00 WA Ac TF 15 -2 -2 .0 00 L- ti OR 50 3- 4- 00 07 MA ve RI 10 20 20 46 RT N 41 [...] HE #5 N 91 10 -3 25 NE 54 12 30 30 00 WA Ac [...] 20 7- 7- 00 07 MA ve RI 75 20 20 46 RT N 81 [...] 16 17 56 E 5 83 PH NE AR OP MA CY 50 #5 MC [...] 46 RT ZA 09 16 17 08 NE 0 68 PH IN AR E MA 10 CY MG #5 91 TA BL ET ES 68 12 30 30 00 WA Ac CI 64 -2 -2 .0 00 L- ti TA 50 7- 7- 00 07 MA ve LO 52 20 20 46 RT NE 05 16 17 08 AM 4 69 [...] 0 RT 1 E- 30 16 16 RI AC 1 PH CH ET AR AE AM MA L IN CY S OP # HE N 10 10 05 -3 91 25 NE 54 01 02 2 30 30 WA 73 GA Ac AV 45 -0 -0 0. L- 94 IN ti 80 6- 5- 00 MA 01 EY ve TA 92 20 20 0 RT 6 TI 51 16 16 RI N 0 PH CH SO AR AE DI MA L UM CY S # 40 10 MG 05 91 TA B OM 60 01 02 2 30 30 WA 73 GA Ac EP 50 -0 -0 0. L- 94 IN ti RA 53 6- 5- 00 MA 01 EY ve ZO 95 20 20 0 RT 3 LE 20 16 [address] AR AE MA L 20 CY S # MG 10 CA 05 PS 91 UL E ES 68 01 02 2 30 30 WA 73 GA Ac CI 64 -0 -0 0. L- 94 IN ti TA 50 6- 5- 00 MA 01 EY ve LO 44 20 20 0 RT 4 NE 77 16 16 RI AM 0 PH CH AR AE 20 MA L CY S MG # TA 10 BL 05 ET 91 AT 51 01 02 2 30 30 WA 73 GA Ac EN 07 -0 -0 0. L- 94 IN ti OL 90 6- 5- 00 MA 01 EY ve OL 75 20 20 0 RT 7 96 16 16 RI 25 3 PH CH AR AE MG MA L CY S TA # BL ET 10 05 91 GE 31 01 02 2 60 30 WA 73 GA Ac MF 72 -0 -0 0. L- 94 IN ti IB 20 6- 5- 00 MA 01 EY ve RO 22 20 20 0 RT 5 ZI 50 16 16 RI L 5 PH CH 60 AR AE 0 MA L MG CY S # TA BL 10 ET 05 91 AL 16 01 02 2 30 30 WA 73 GA Ac LO 71 -0 -0 0. L- 94 IN ti PU 40 6- 5- 00 MA 01 EY ve RI 04 20 20 0 RT 2 NO 10 16 16 RI L 7 PH CH 10 AR AE 0 MA L MG CY S # TA BL 10 ET 05 91 CY 68 02 02 0 [address] Ac CL 64 -0 -0 0. L- 99 ON ti OB 50 5- 5- 00 MA 84 E ve EN 45 20 20 0 RT 3 DI ZA 09 16 16 XI NE 0 PH E IN AR D E MA 10 CY # MG 10 TA 05 BL 91 ET ON 53 01 02 0 50 25 WA 88 GA Ac ET 88 -1 -0 0. L- 32 IN ti OU 50 5- 5- 00 MA 98 EY ve CH 24 20 20 0 RT 1 45 16 16 RI UL 0 PH CH TR AR AE [...] Procedure [place] [address] [facility] ABDOMEN & 7 MEDICAL PELVIS IMAGING W/O ASS CONTRAST MATERIAL ECHO 31509 [facility] TTHRC R-T 7 [facility] 2D INC INC W/WOM-MOD E COMPL SPEC&COLR D RADEX 91268 [facility] FOOT 7 [facility] COMPLETE INC INC MINIMUM [address] [place] [address] [facility] UREA 7 [facility] NITROGEN INC INC QUANTITAT MENG LOCM Q9967 [facility] AMBULATOR [phone] [facility] Y SURGERY MG/ML INC CENTER, IODINE L CONCENTRA TION PER ML CT THORAX 51354 [facility] 7 [facility] W/[place] [address] [facility] ABDOMEN & 7 [facility] PELVIS INC INC W/CONTRAS T MATERIAL COLLECTIO 11092 [facility] Rascon VENOUS 7 [facility] BLOOD INC INC VENIPUNCT URE CREATININ 17875 [facility] E BLOOD 7 [facility] [...] AIRWAY EQUIPME EQUIPME PRESSURE DEVICE DRUG TEST 04795 [facility] PRSMV 7 [facility] QUAL DIR INC INC OPTICAL OBS PER DAY CONTINUOU E0601 [facility] Kwon 7 HOME HOME POSITIVE MEDICAL MEDICAL AIRWAY EQUIPME EQUIPME PRESSURE DEVICE DRUG TEST 50977 [facility] PRSMV 7 [facility] QUAL DIR INC INC OPTICAL OBS PER DAY CONTINUOU E0601 GAYATHRI Kwon 7 HOME HOME POSITIVE MEDICAL MEDICAL AIRWAY EQUIPME EQUIPME PRESSURE DEVICE COMPREHEN 37777 [facility] SIVE 7 [facility] METABOLIC INC INC PANEL HEMOGLOBI 95784 [facility] N 7 [facility] GLYCOSYLA INC INC ERICA A1C COLLECTIO 53089 [facility] N VENOUS 7 [facility] BLOOD INC INC VENIPUNCT URE CONTINUOU E0601 GAYATHRI Kwon 7 HOME HOME POSITIVE MEDICAL MEDICAL AIRWAY EQUIPME EQUIPME PRESSURE DEVICE HOSPITAL [address] [facility] 7 PHYSICIAN DAY S GROUP MANAGEMEN T 30 MIN/< [place] [address] [facility] R[facility] ABDOMEN & 7 MEDICAL PELVIS IMAGING W/O ASS CONTRAST MATERIAL SBSQ 96566 [facility] 7 PHYSICIAN CARE/DAY S GROUP 15 MINUTES FINAL G9638 [facility] REPORTS 7 MEDICAL W/O DOC IMAGING 1/MORE ASS DOSE REDUCTION TECH FINAL G9551 [facility] REPR ABD 7 MEDICAL IMAG STS IMAGING W/O ASS INCIDNT FND LES NTD: INITIAL [address] [place] [address] PHYSICIAN CARE/DAY [place] [address] [place] [address] [facility]OGER ABDOMEN & 7 MEDICAL PELVIS [...] METH P DAY 8-[address] [place] [address] NIVIA PAINTERTELLY ABDOMEN & 6 MEDICAL PELVIS IMAGING W/O ASS CONTRAST MATERIAL POLYSOM 78334 [facility] PAVEZ 6/>YRS 6 PHYSICIAN SLEEP S GROUP W/CPAP 4/> ADDL DEMETRIUS ATTND CONTINUOU E0601 GAYATHRIBRENDAN TRINH S 6 HOME HOME POSITIVE MEDICAL MEDICAL AIRWAY EQUIPME EQUIPME PRESSURE DEVICE DRUG TEST G0481 [facility] DEFINITV [address] [address] ID INC INC METH P DAY 8-14 DRUG [address] OPHTH 42334 D[facility] DANNI MEDICAL 6 AYAH AYAH XM&EVAL [...] EQUIPME EQUIPME PRESSURE DEVICE HUMDIFIR E0562 G[facility]RI TRINH HEATED 6 HOME HOME USED MEDICAL MEDICAL W/POS EQUIPME EQUIPME ARWAY PRESSURE DEVICE DRUG TEST G0481 [facility] DEFINITV [address] ID INC INC METH P DAY - DRUG CL SLEEP STD 20168 [facility] AIRFLOW 6 [facility] HRT INC INC RATE&O2 [place] [address] [facility] FARHAD ADJUVANTE 6 PHYSICIAN JASMYNE D VACCINE S GROUP FOR INTRAMUSC ULAR USE IM ADM 39724 [facility] FARHAD PRQ ID 6 PHYSICIAN JASMYNE SUBQ/IM S GROUP NJXS 1 VACCINE DRUG TST G0477 [facility] PRESUMP;C 6 [facility] PBL BEING INC INC READ DC OPT OBV ONLY BONE 30711 [facility] &/JOINT 6 [facility] IMAGING INC INC WHOLE BODY TECHNETIU A9503 [facility] Arthur TC-99M 6 [facility] MEDRONATE INC INC DX UP TO 30 MCI COLLECTIO 36123 [facility] N VENOUS 6 [facility] BLOOD INC INC VENIPUNCT URE COMPREHEN 14237 [facility] SIVE 6 [facility] METABOLIC INC INC PANEL BLOOD 74986 [facility] COUNT 6 [facility] COMPLETE INC INC AUTO&AUTO DIFRNTL WBC DRUG TST G0477 [facility] PRESUMP;C 6 [facility] PBL BEING INC INC READ DC OPT OBV ONLY DRUG TEST G0481 [facility] DEFINITV 6 [facility] DR ID INC INC METH P DAY 8-14 DRUG CL COMPREHEN 02231 [facility] SIVE 6 [facility] [place] [address] [facility] ALL ABDOMEN & 6 MEDICAL PELVIS IMAGING W/[place] [address] [facility] ALL THORACIC 6 MEDICAL SPINE W/O IMAGING CONTRAST ASS MATERIAL THERAPEUT 86303 [facility] 6 PHYSICIAN JASMYNE PROPHYLAC S GROUP TIC/DX INJECTION SUBQ/IM INJECTION J1100 [facility] 6 PHYSICIAN JASMYNE DEXAMETHO S GROUP SONE [...] HOSP [facility] INC INC CT THORAX 96637 [facility] ALL 6 MEDICAL W/CONTRAS IMAGING T ASS MATERIAL BLOOD 63854 [facility] COUNT 6 [facility] COMPLETE INC INC AUTO&AUTO DIFRNTL WBC LOCM Q9967 [facility] [phone] 6 [facility] MG/ML INC INC IODINE CONCENTRA TION PER ML COMPREHEN 27427 [facility] SIVE 6 [facility] [place] [address] [facility] THYROID 6 [facility] STIMULATI [place] [address] [facility] UREA 6 [facility] NITROGEN INC INC QUANTITAT MENG CREATININ 75968 [facility] E BLOOD 6 [facility] INC INC COLLECTIO 74815 [facility] N VENOUS 6 [facility] BLOOD INC INC VENIPUNCT URE UNCLASSIF J3490 [facility] IED DRUGS 6 [facility] INC INC LOCM Q9967 [facility] [phone] 6 [facility] MG/ML INC [place] [address] [facility] ABDOMEN & 6 [facility] PELVIS INC INC W/CONTRAS T MATERIAL CT THORAX 39037 [facility] 6 [facility] W/CONTRAS INC INC T MATERIAL BLOOD 92470 [facility] COUNT 6 [facility] COMPLETE INC INC AUTO&AUTO DIFRNTL WBC COMPREHEN 23706 [facility] SIVE 6 [facility] METABOLIC INC INC PANEL BLOOD 26113 [facility] COUNT 6 [facility] COMPLETE INC INC AUTO&[place] [address] [facility] INFUSION 6 [facility] THERAPY/P INC INC ROPHYLAXI S /DX 1ST TO 1 HR INJECTION J9299 [facility] 6 [facility] NIVOLUMAB INC INC 1 MG CHEMOTX 26023 [facility] ADMN IV 6 [facility] NFS TQ UP INC INC 1 HR 1/ SBST/DRUG BLOOD 30837 [facility] COUNT 6 [facility] COMPLETE INC INC AUTO&AUTO DIFRNTL WBC BASIC 83568 [facility] METABOLIC 6 [facility] [address] N[facility] ROGER ALL ABDOMEN & 5 MEDICAL PELVIS IMAGING W/CONTRAS ASS T MATERIAL CT THORAX 88839 [facility]OGER ALL 5 MEDICAL W/CONTRAS IMAGING T ASS MATERIAL CHEMOTX 26288 ELENOIVONNE JOHANSEN ADMN IV 5 [facility] NFS TQ UP INC INC 1 HR SBST/DRUG BLOOD 21726 [facility] COUNT 5 [facility] COMPLETE INC INC AUTO&AUTO DIFRNTL WBC COMPREHEN 35782 [facility] SIVE 5 [facility] METABOLIC INC INC PANEL INJECTION C9453 [facility] 5 [facility] NIVOLUMAB INC INC 1 MG BLOOD 42367 [facility] COUNT 5 [facility] COMPLETE INC INC AUTO&AUTO DIFRNTL WBC CHEMOTX 62308 [facility] ADMN IV 5 [facility] NFS TQ UP INC INC 1 HR SBST/DRUG IIV3 06738 [facility] V[facility] 5 PHYSICIAN JASMYNE SPLIT S GROUP VIRUS 0.5 ML DOSAGE IM USE IM ADM [id number] [facility] PRQ ID 5 PHYSICIAN JASMYNE SUBQ/IM S GROUP NJXS 1 VACCINE CHEMOTX 40767 ELENO JOHANSEN ADMN IV 5 [facility] NFS TQ UP INC INC 1 HR SBST/DRUG COMPREHEN 77010 [facility] SIVE 5 [facility] [place] [address] ELENO JOHANSEN ABDOMEN 5 [facility] W/CONTRAS INC INC T MATERIAL COLLECTIO 10942 ELENO JOHANSEN N VENOUS 5 [facility] BLOOD INC INC VENIPUNCT URE LOCM Q9967 ELENO JOHANSEN [phone] 5 [facility] MG/ML INC INC IODINE CONCENTRA TION PER ML BLOOD 02591 ELENO [facility]ANSEN COUNT 5 [facility] COMPLETE INC INC AUTO&AUTO DIFRNTL WBC CT THORAX 18015 EL[facility]ANSEN 5 [facility] W/CONTRAS INC INC T MATERIAL BLOOD 57639 ELENO JOHANSEN COUNT 5 [facility] COMPLETE INC INC AUTO&AUTO DIFRNTL WBC CHEMOTX 39768 ELENO TAYLORON ADMN IV 5 [facility] NFS TQ UP INC INC 1 HR / SBST/DRUG CHEMOTX 14126 ELENO ELENO ADMN IV 5 [facility] NFS TQ UP INC INC 1 HR / SBST/DRUG BLOOD 14784 EL[facility]OHANSEN COUNT 5 [facility] COMPLETE INC INC AUTO&AUTO DIFRNTL WBC BLOOD 88872 ELENO JOHANSEN COUNT 5 [facility] COMPLETE INC INC AUTO&AUTO DIFRNTL WBC COMPREHEN 08860 ELENO [facility]ANSEN SIVE 5 [facility] METABOLIC INC INC PANEL CHEMOTX 48775 ELENO JOHANSEN ADMN IV 5 [facility] NFS TQ UP INC INC 1 HR SBST/DRUG COLLECTIO 26378 ELENO JOHANSEN N VENOUS 5 [facility] BLOOD INC INC VENIPUNCT URE CHEMOTHER 39555 ELENO JOHANSEN APY ADMN 5 [facility] IV INC INC INFUSION TQ EA HR CHEMOTX 88562 ELENO JOHANSEN ADMN IV 5 [facility] NFS TQ UP INC INC 1 HR SBST/DRUG COMPREHEN 88343 ELENO [facility]OHANSEN SIVE 5 [facility] METABOLIC INC INC PANEL BLOOD 90372 ELENO JOHANSEN COUNT 5 [facility] COMPLETE INC INC AUTO&[place] [address] ELENO JOHANSEN ABDOMEN & 5 [facility] PELVIS INC INC W/CONTRAS T MATERIAL CT THORAX 39044 EL[facility]ANSEN 5 [facility] W/CONTRAS INC INC T MATERIAL LOCM Q9967 ELENO JOAHNSEN [phone] 5 [facility] MG/ML INC INC [place] [address] ELENO JOHANSEN AMYLASE 5 [facility] INC INC BLOOD 55594 ELENO JOHANSEN COUNT 5 [facility] COMPLETE INC INC AUTO&[place] [address] ELENO JOHANSEN LIPASE 5 [facility] INC INC COMPREHEN 82926 ELENO JOHANSEN SIVE 5 [facility] METABOLIC INC INC PANEL COLLECTIO 70451 ELENO [facility]EN N VENOUS 5 [facility] BLOOD INC INC VENIPUNCT URE COLLECTIO 01825 ELENO JOHANSEN N VENOUS 5 [facility] BLOOD INC INC VENIPUNCT URE BLOOD 35578 ELENO JOHANSEN COUNT 5 [facility] COMPLETE INC INC AUTO&[place] [address] ELENO JOHANSEN ERYTHROPO 5 [facility] IETIN INC INC COMPREHEN 25193 ELENO JOHANSEN SIVE 5 [facility] [place] [address] [place] [facility] ABDOMEN & 5 [facility] PELVIS IMAGING W/O ASS [facility]AST [facility] [address] [facility] DISCHARGE 5 CARE R H DAY ASSOCIATE MANAGEMEN S T 30 MIN/< SBSQ 75164 [place] [address] CARE R H CARE/DAY ASSOCIATE 15 S MINUTES INITIAL 71334 [facility] 5 PHYSICIAN CONSULT S GROUP NEW/ESTAB PT 55 MIN INITIAL [address] [place] [address] CARE R H CARE/DAY ASSOCI[place] [address] [place] [address] [place] [facility] ALL ABDOMEN & 5 MEDICAL PELVIS IMAGING W/O ASS CONTRAST MATERIAL RADEX 10014 ELENOIVONNE TAYLORON SPINE 5 [facility] LUMBOSACR INC INC AL MINIMUM 4 VIEWS RADEX 66601 EL[place] ELENO SPINE 5 [facility] CERVICAL INC INC 4 OR 5 VIEWS HOSPITAL 19242 [facility] DISCHARGE 5 CARE R H DAY ASSOCIATE MANAGEMEN S T 30 MIN/< SBSQ 06469 [facility] 5 PHYSICIAN CARE/DAY S GROUP [address] THORAX [address]26[address] [place] DANA W/O 5 MEDICAL SHELIA CONTRAST IMAGING MATERIAL ASS INITIAL 92536 [facility] INPATIENT 5 PHYSICIAN CONSULT S GROUP NEW/ESTAB PT 55 MIN INITIAL 46309 [facility] 5 CARE R H CARE/DAY ASSOCIATE [address] [place] [address] NIVIA DANA ABDOMEN & 5 MEDICAL SHELIA PELVIS IMAGING W/CONTRAS ASS T MATERIAL ECG 65270 [facility] ROUTINE 4 JOSE F IMT ECG EMERGENCY W/LEAST PHYS 12 LDS I&R ONLY URINLS 65735 HARSHAD RANDALL HARSHAD RANDALL DIP 4 STICK/TAB LET REAGNT NON-AUTO MICRSCPY METANEPHR 22581 [facility] JAKI 4 DIAGNOSTI DIAGNOSTI CS CS LIPID 64290 HARSHAD [employer] RANDALL PANEL 4 LOCM Q9967 EL[place] JOHANSEN [phone] 4 [facility] MG/ML INC INC IODINE CONCENTRA TION PER ML CT THORAX 51567 [facility] JOHANSEN 4 [facility] W/[place] [address] DANA DANA ABDOMEN & 4 SHELIA SHELIA PELVIS W/O CONTRAST MATERIAL Encounters Encounter Start End Date Code Location Performer Type Date OFFICE 35561 [facility] LISETTE VALERA 7 7 PHYSICIAN A T NEW 60 S GROUP MINUTES EMERGENCY 20169 DANAY LLAMAS DEPT 7 7 PHYSICIAN VISIT S, PLLC HIGH SEVERITY& THREAT [facility] ELENO - 7 7 [facility] OUTPATIEN [facility] - 7 7 [facility] OUTPATIEN [facility] T OFFICE 60322 [facility] OUTSHANEN 7 7 PHYSICIAN T VISIT S GROUP 15 MINUTES OFFICE 86743 [facility] 7 7 PHYSICIAN T VISIT S GROUP 25 MINUTES HOSPITAL [facility] - 7 7 [facility] OUTPATIEN [facility] - 7 7 [facility] OUTPATIEN [facility] T OFFICE 69918 [facility] OUTPATIEN 7 7 PHYSICIAN T VISIT S GROUP 25 MINUTES OFFICE 75807 [facility] OUTPATIEN 7 7 PHYSICIAN T VISIT S GROUP 25 MINUTES HOSPITAL [facility] - 7 7 [facility] OUTPATIEN INC T OFFICE 92492 [facility] OUTPATIEN 7 7 PHYSICIAN T VISIT S GROUP 25 MINUTES HOSPITAL [facility] - 7 7 [facility] INPATIENT INC EMERGENCY 67166 [facility] DEPT 7 7 PHYSICIAN VISIT S, [facility] HIGH SEVERITY& THREAT [facility] OFFICE 09225 EL[place] SMITH OUTPATIEN 6 6 [facility] VISIT 5 HOSPITAL MINUTES [facility] EL[facility] - 6 6 MEM [facility] OUTPATIEN [facility] OFFICE 18515 [facility] OUTPATIEN 6 6 PHYSICIAN T VISIT S GROUP 15 MINUTES EMERGENCY 99474 [facility] DEPT 6 6 PHYSICIAN VISIT S, [facility] HIGH SEVERITY& THREAT [facility] - 6 6 [facility] OUTPATIEN [facility] - 6 6 [facility]PATIEN [facility] - 6 6 [facility] OUTPATIEN [facility] OFFICE 85176 [facility] OUTPATI[facility] 6 6 PHYSICIAN JASMYNE T VISIT S GROUP 15 MINUTES HOSPITAL [facility] - 6 6 [facility] OUTPATIEN [facility] - 6 6 [facility] OUTPATIEN [facility] OFFICE 60532 [facility] OUTPATIEN 6 6 PHYSICIAN JASMYNE T VISIT S GROUP 15 MINUTES OFFICE 77685 [facility] SMITH OUTPATIEN 6 6 [facility] 10 P [facility] - 6 6 [facility] OUTPATIEN INC T OFFICE 67397 [facility] SMITH OUTPATIEN 6 6 [facility] 15 P MINUTES HOSPITAL [facility] - 6 6 [facility] OUTPATIEN INC T OFFICE 24919 [facility] OUTPATIEN 6 6 PHYSICIAN JASMYNE T VISIT S GROUP 15 MINUTES HOSPITAL [facility] - 6 6 [facility] OUTPATIEN INC T OFFICE 39595 [facility] OUTPATIEN 6 6 PHYSICIAN JASMYNE T VISIT 5 S GROUP MINUTES HOSPITAL [facility] - 6 6 [facility] OUTPATIEN INC T EMERGENCY 66133 [facility] DEPT 6 6 PHYSICIAN JASMYNE VISIT S, [facility] HIGH SEVERITY& THREAT [facility] - 6 6 [facility] OUTPATIEN INC T OFFICE 91921 [facility] OUTPATIEN 6 6 PHYSICIAN JASMYNE T VISIT S GROUP 15 MINUTES HOSPITAL [facility] - 6 6 [facility] OUTPATIEN INC T OFFICE 53074 [facility] OUTPATIEN 6 6 PHYSICIAN JASMYNE T VISIT S GROUP 10 MINUTES HOSPITAL [facility] - 6 6 [facility] OUTPATIEN INC T OFFICE 61544 [facility] OUTPATIEN 6 6 PHYSICIAN JASMYNE T VISIT S GROUP 15 MINUTES OFFICE 84269 [facility] OUTPATIEN 6 6 PHYSICIAN JASMYNE T VISIT S GROUP 10 MINUTES OFFICE 67554 [facility] SMITH OUTPATIEN 6 6 [facility] T [facility] 10 P MINUTES HOSPITAL [facility] - 6 6 [facility] OUTPATIEN INC T OFFICE 24592 [facility] OUTPATIEN 6 6 PHYSICIAN JASMYNE T VISIT S GROUP 10 MINUTES HOSPITAL [facility] - 6 6 [facility] OUTPATIEN INC T OFFICE 61398 [facility] SM[facility] OUTPATIEN 6 6 [facility] 10 P MINUTES HOSPITAL [place] - 6 6 [facility]PATIEN [facility] - 6 6 [facility] OUTPATIEN INC T OFFICE 04191 [facility] OUTPATIEN 6 6 PHYSICIAN JASMYNE T VISIT S GROUP 10 MINUTES OFFICE 82041 [facility] SMITH OUTPATIEN 6 6 [facility] 10 P [facility] - 6 6 [facility] OUTPATIEN INC T OFFICE 84352 [facility] SMITH OUTPATIEN 6 6 [facility] 10 P MINUTES HOSPITAL [facility] - 6 6 [facility] OUTPATIEN [facility] T OFFICE 48638 [facility] OUTPATIEN 6 6 PHYSICIAN JASMYNE T VISIT S GROUP 15 MINUTES OFFICE 65781 [facility] OUTPATIEN 5 5 [facility] 10 P MINUTES OFFICE 46988 [facility] OUTPATIEN 5 5 PHYSICIAN JASMYNE T VISIT S GROUP 10 MINUTES HOSPITAL [facility] - 5 5 [facility] OUTPATIEN INC T OFFICE 25329 [place] [facility] OUTPATIEN 5 5 [facility] 5 HOSPITAL MINUTES P [facility] - 5 5 [facility]PATIEN [facility] - 5 5 [facility] OUTPATIEN INC T OFFICE 27306 [facility] OUTPATIEN 5 5 PHYSICIAN JASMYNE T VISIT S GROUP 10 MINUTES OFFICE 93276 [place] SM[facility] OUTPATIEN 5 5 [facility] 10 P MINUTES HOSPITAL [place] - 5 5 [facility] OUTPATIEN INC T [facility] [place] - 5 5 [facility] OUTPATIEN INC T [facility] [place] - 5 5 [facility] OUTPATIEN INC T OFFICE 80524 [facility] OUTPATIEN 5 5 PHYSICIAN JASMYNE T VISIT S GROUP 25 MINUTES HOSP[facility] - 5 5 [facility] OUTPATIEN INC T OFFICE 16805 [facility] [facility] OUTPATIEN 5 5 [facility] T VISIT 5 HOSPITAL MINUTES P [facility]OSP[facility] - 5 5 [facility] OUTPATIEN INC T OFFICE 74296 [facility] OUTPATIEN 5 5 PHYSICIAN JASMYNE T VISIT S GROUP 10 MINUTES HOSPITAL [facility] - 5 5 [facility] OUTPATIEN INC T OFFICE 94551 [facility] SM[facility] OUTPATIEN 5 5 [facility] T VISIT 5 HOSPITAL MINUTES P OFFICE 12727 [facility] OUTPATIEN 5 5 PHYSICIAN JASMYNE T VISIT S GROUP 15 MINUTES OFFICE 13880 [facility] SMITH OUTPATIEN 5 5 [facility] T VISIT HOSPITAL 10 P MINUTES OFFICE 30667 [facility] SRINIVAS TOD OUTPATIEN 5 5 PHYSICIAN T VISIT S GROUP 15 MINUTES HOSPITAL [facility] - 5 5 [facility] OUTPATIEN INC T OFFICE 52918 [facility] SRINIVAS TOD OUTPATIEN 5 5 PHYSICIAN T VISIT S GROUP 15 MINUTES HOSPITAL [facility] - 5 5 [facility] OUTPATIEN INC T OFFICE 09255 [facility] OUTPATIEN 5 5 PHYSICIAN JASMYNE T VISIT S GROUP 15 MINUTES OFFICE 86723 [place] SMITH OUTPATIEN 5 5 [facility] T VISIT HOSPITAL 10 P MINUTES HOSPITAL [place] - 5 5 [facility] OUTPATIEN INC T [facility] 23340 [facility] PHYSICIAN JASMYNE VISIT S, [facility] HIGH SEVERITY& THREAT FUNJ OFFICE 58605 [facility] SRINIVAS TOD OUTPATIEN 5 5 PHYSICIAN T VISIT S GROUP 15 MINUTES OFFICE 78686 [facility] OUTPATIEN 5 5 [facility] 45 HOSPITAL MINUTES P EMERGENCY [address] [facility] DEPT 5 5 PHYSICIAN JASMYNE VISIT S, [facility] HIGH SEVERITY& THREAT FUN [facility] [place] - 5 5 [facility] OUTPATIEN INC T OFFICE 89951 [facility] BARBOZA OUTPATIEN 5 5 COUNTS INCLUDE 234 [facility] T VISIT URGENT 25 TREAT MINUTES OFFICE 67781 [facility] SRINIVAS TOD OUTPATIEN 5 5 PHYSICIAN T VISIT S GROUP 15 MINUTES HOSPITAL [place] - 5 5 [facility] INPATIENT INC EMERGENCY 48130 [facility] 5 5 [facility] T VISIT P HIGH/URGE NT SEVERITY EMERGENCY 78099 [facility] ALFARIS 4 4 JOSE F [facility] EMERGENCY T VISIT PHYS MODERATE SEVERITY EMERGENCY 94813 [facility] FRANCIS 4 4 JOSE F [facility] EMERGENCY T VISIT PHYS HIGH/URGE NT SEVERITY OFFICE 29681 HARSHAD RANDALL [facility]SH[facility] RANDALL OUTPATIEN 4 4 T VISIT 15 MINUTES OFFICE 60251 HARSHAD RANDALL [facility]SH[facility] R[facility]ALL OUTPATIEN 4 4 T VISIT 15 MINUTES OFFICE 89922 HARSHAD RANDALL [facility]SH[facility] R[facility]ALL OUTPATIEN 4 4 T VISIT 25 MINUTES HOSPITAL [facility] - 4 4 [facility] OUTPATIEN INC T OFFICE 92425 HARSHAD RANDALL HARSHAD RANDALL OUTPATIEN 4 4 T VISIT 25 MINUTES EMERGENCY 68081 [facility] DEPT 4 4 VINCE CLARKE VISIT HIGH SEVERITY& THREAT FUN EMERGENCY 01007 ZENAIDA PEREIRA 4 4 [facility] Celena VISIT MODERATE SEVERITY
--- OUTSIDE RECORDS SUMMARY | 2017-06-29 16:33 | External Medical Summary Rpt | CCD ---
Demographics Preferred Language Israeli Marital Status Unknown Latter-Day Affiliation Unknown Race Unknown Ethnic Group Unknown Author Author , VITO PADRON Address Unknown Phone Immunization No patient found.
--- OUTSIDE RECORDS SUMMARY | 2017-06-29 16:33 | External Medical Summary Rpt | CCD ---
Demographics Preferred Language Belizean Marital Status Unknown Episcopalian Affiliation Unknown Race Unknown Ethnic Group Unknown Author Author , VITO PADRON Address Unknown Phone Immunization No patient found.
--- OUTSIDE RECORDS SUMMARY | 2017-06-29 16:34 | External Medical Summary Rpt ---
[...] - 1:00 PM source [facility] data OTS [id number] T [facility], [place], [place] [id number] 53Lab Directo r: Cecil Carter MD, Phone: [phone] Opiates Negativ Cutoff= No No Opiate Sep [...] - 3:30 PM source [facility] data OTS [id number] T [facility], [place], [place] [id number] 53Lab Directo r: Cecil Carter MD, Phone: [phone] Opiates Negativ Cutoff= No No Opiate May [...] UI - 1:00 PM source [facility] data [facility] [id number] [place], [place] [id number] 53Lab Directo r: Cecil Carter MD, Phone: [phone] Opiates Negativ Cutoff= No No Opiate February [...]
--- OUTSIDE RECORDS SUMMARY | 2017-06-29 16:34 | External Medical Summary Rpt ---
[...] - 1:00 PM source [facility] data OTS [id number] T [facility], [place], [place] [id number] 53Lab Directo r: Cecil Carter MD, Phone: [phone] Opiates Negativ Cutoff= No No Opiate Sep [...] - 3:30 PM source [facility] data OTS [id number] T [facility], [place], [place] [id number] 53Lab Directo r: Cecil Carter MD, Phone: [phone] Opiates Negativ Cutoff= No No Opiate May [...] UI - 1:00 PM source [facility] data [facility] [id number] [place], [place] [address] 53Lab Directo r: Cecil Carter MD, Phone: [phone] Opiates Negativ Cutoff= No No Opiate February [...]
--- NOTE | 2017-06-29 16:40 | Emergency Room Report ---
History of Present Illness Time Seen by 1710 Presenting Problem in Triage Pt arrived:Walked Presenting Problem:PT C/O INCREASING ABD PAIN. 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 N Clinical Suspician of Infection? N Mental Status: 1 - Regular (Normal Baseline) Sepsis Risk:Low Sepsis Risk Have you (or family members/close friends) recently traveled outside the [place]? N If Yes, where/when: Have you had exposure to infectious disease within the past month? N TB? Other? Specify: Source patient, RN notes reviewed, family, RN/MD Exam Limitations no limitations Comment This is a 46-year-old male patient arriving to the emergency room with intractable abdominal pain, nausea and vomiting. He was seen around 3 AM in the emergency room, with similar complaints, but, as his symptoms were mild, at that time, he was discharged home. His original symptoms started approximately 3 days ago, gradually getting worse. Patient has been avoiding to eat afraid of getting worse. He has a history of pancreatitis, with occasional flareups. She has a history of renal cell carcinoma, status post RIGHT nephrectomy, currently with a relapse, per CT scan obtained last night, showing metastatic lesions in his abdomen. ALLERGIES Coded Allergies: lisinopril (Mild, 01/28/17) Penicillins (09/21/16) Home Medications Reported Medications Atenolol (Atenolol) 25 MG PO DAILY Cyclobenzaprine Hcl (Cyclobenzaprine Hydrochloride) 10 MG PO DAILY #30 TAB Metformin HCL (Metformin) 1,000 MG PO BID Allopurinol 100 MG PO DAILY OMEPRAZOLE MAGNESIUM (Prilosec 20MG) 20 MG PO DAILY Escitalopram Oxalate (Escitalopram 20MG) 20 MG PO DAILY Oxycodone 10 Mg\[id number] (Oxycodone-Acetaminophen 10-325) 1 TAB PO TID VARENICLINE TARTRATE (Chantix) 1 TAB PO BID Losartan Potassium (Losartan 50MG) 50 MG PO DAILY Gabapentin (Gabapentin 100MG) 100 MG PO TID Lancets (Onetouch Lancets) Fluticasone Propionate (Flonase 50 Mcg Nasal Bison) Pravastatin Sodium (Pravachol) 40 MG PO DAILY #30 History Medical History General CAD? No Angina: No [place]: No Hypertension? Yes Hyperlipidemia? Yes CHF? No DVT? No PE? No COPD? No Asthma? No Anemia? No GERD? No Gastric ulcers? No GI Bleed? No Hernia? Yes Thyroid Problems? No Hypothyroidism? No CVA? No Seizures? No Diabetes? Yes Insulin Dependent: No Insulin Pump: No Home FSBS? No Renal Insuffiency? No End Stage Renal Disease? No UTI? No Stones? No BPH? No GB Disease: Yes Nephritic Syndrome? No Asplenia? No Hepatitis? No Sickle Cell Disease? No Arthritis? No Migraines? No Cataracts? No Glaucoma? No MRSA? No HIV? No TB? No Anxiety? Yes Depression? Yes Cancer? Yes Site: RIGHT KIDNEY More? Yes Additional hx: PANCREATITIS, DIVERTICULITIS, HEART MURMUR, ENLARGED HEART, GOUT Immunization Hx DT/Tetanus 1-4 Years Ago Flu 2015-FSN Pneumonia Received In Past Surgical Hx Previous Surgery?Y RIGHT NEPHRECTOMY Gallbladder VENTRAL HERNIA REPAIR Hemorrhoidectomy COLONOSCOPY Family History Family Hx Diabetes Yes CAD No Hypertension Yes Hyperlipidemia Yes Cancer Yes TB No Social History Smoking Hx Smoker: Former Smoker Tobacco: No Packs/day < 1 Pack Alcohol Alcohol: No Review of Systems All Other Systems Reviewed and Negative Gastrointestinal abdominal pain, nausea, vomiting Physical Exam Vital Signs Vital Signs Date Time Temp Pulse Resp B/P Pulse O2 O2 Flow FiO2 Ox Delivery Rate 06/29 1642 98 22 168/98 98 06/29 1642 97.4 102 22 178/118 98 06/29 1641 97.4 102 22 178/118 98 06/29 1637 22 06/29 1515 98.5 84 16 182/100 98 General Appearance normal appearance, WD/WN, severe distress Respiratory Status Yes: trachea midline, chest symmetrical, non tender chest. No: respiratory distress. Lung Sounds bilateral: normal breath sounds, lungs clear. 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 No Comment 1600-case d/w dr. Castro, advised of patient's presentation and findings, agreeable to admit patient for additional workup and treatment. Plan is to keep patient NPO, continue IV hydration, and IV pain/nausea medications. Patient is already aware of his diagnosis of relapsing cancer, at this time. I will write temporary admission orders per hospital protocol at this time. Upon patient's presentation the floor the floor nurse will contact PCP in order to obtain full inpatient admission orders. Results/Orders Laboratory Tests 06/29/17 1525: Sodium 118 L, Potassium 4.0, Chloride 85 L, Carbon Dioxide 24, BUN 11, Creatinine 0.6 L, Estimated Creat Clear 259 H, Estimated GFR (MDRD) 146, Glucose 372 H, Calcium 8.8, Total Bilirubin 0.7, AST 12 L, ALT 31.2, Alkaline Phosphatase 162 H, Total Protein 6.5, Albumin 2.9 L, Globulin 3.6 H, Albumin/ Globulin Ratio 0.8 L, Amylase 170 H, Lipase 1491 H, WBC 18.0 H, RBC 5.04, Hgb 15.6, Hct 41.1 L, MCV 81.6 L, RDW 14.9, Plt Count 228, MPV 7.8, Gran % 85.2 H, Gran # 15.3 H, Total Counted 100, Lymphocytes % 10.4, Monocytes % 3.0, Eosinophils % 1.1, Basophils % 0.3, Neutrophils 83 H, Band Neutrophils 1, Lymphocytes (Manual) 9 L, Lymphocytes # 1.9, Monocytes (Manual) 7, Monocytes # 0.5, Eosinophils # 0.2, Basophils # 0.1, Platelet Estimate NORMAL, PUBS MCHC 37.9 H, MCH 30.9 Current Medication Orders Sig/Carmencita Start time Last Medication Dose Route Stop Time Status Admin Diagnostic Test (Pha) 1 EACH W/MEALS&HS 06/29 1700 UNV 06/29 FS 08/28 1659 1714 Insulin Human [rDNA See Dose W/MEALS&HS 06/29 1700 UNV 06/29 origin] Insts (1) SC 1718 Hydromorphone HCl 1 MG Q4HP PRN 06/29 1645 CAN IV Influenza Virus 0.5 ML PRN PRN 06/29 1645 UNV Vaccine Quadrival IM Morphine Sulfate 6 MG ONCE ONE 06/29 1645 DC 06/29 IV 06/29 1646 1637 Morphine Sulfate 6 MG Q4HP PRN 06/29 1645 UNV IV Ondansetron HCl 4 MG ONCE ONE 06/29 1645 DC 06/29 IV 06/29 1646 1635 Ondansetron HCl 4 MG Q4HP PRN 06/29 1645 UNV IV Sodium Chloride 1,000 ML .Q8H 06/29 1645 AC 06/29 IV 1710 Sodium Chloride 10 ML PRN PRN 06/29 1645 AC IV 06/30 1639 Sodium Chloride 1,000 ML .Q8H 06/29 1645 UNV IV Morphine Sulfate 0 .STK-MED ONE 06/29 1634 DC .ROUTE Ondansetron HCl 0 .STK-MED ONE 06/29 1634 DC .ROUTE Sodium Chloride 10 ML PRN PRN 06/29 1545 AC IV 06/30 1533 Dose Instructions: (1)Insulin Human [rDNA origin]: SEE ADMIN CRITERIA FOR LOW INTENSITY SS Orders Procedure Date/time Status DIET-NOTHING BY MOUTH 06/29 D Active Decision to admit 06/29 1547 Active IV SALINE LOCK 06/29 1534 Active LIPASE 06/29 1534 Complete CBC WITH AUTO DIFF 06/29 1534 Complete CHEM 12 PROFILE 06/29 1534 Complete AMYLASE 06/29 1534 Complete DIFFERENTIAL-WBC 06/29 1525 Complete ADMIT PATIENT 06/29 UNK Active VITAL SIGNS 06/29 UNK Active POM NURSE ERICA CHRISTYE ORDER 06/29 UNK Active CODE STATUS 06/29 UNK Active PATIENT ACTIVITY ORDER 06/29 UNK Active Departure Departure Time of Disposition 1639 Disposition Still a Patient Clinical Impression Primary Impression: Acute pancreatitis Qualifiers: Pancreatitis type: unspecified pancreatitis type Acute pancreatitis complication: unspecified Qualified Code: K85.90 - Acute pancreatitis without necrosis or infection, unspecified Condition STABLE ED Critical Care Critical Care No at 1827
[2017-06-29 17:15] VITALS: BP 159/114
[2017-06-29 17:30] VITALS: BP 154/92
[2017-06-29 19:50] VITALS: BP 153/95
[2017-06-29 23:00] VITALS: BP 153/95
[2017-06-30 04:00] VITALS: BP 171/99
--- NOTE | 2017-06-30 07:15 | PHARMACY CLINIC NOTE ---
Patient Demographics Patient Demographics Admission date: 06/29/17 Date: 06/30/17 Time: 0715 Allergies Coded Allergies: lisinopril (Mild, 01/28/17) Penicillins (09/21/16) HEIGHT- FT: 6 IN: 0.00 K.384 VTE General Information Labs: Laboratory Tests 06/29 1525 Hematology Hgb (14.1 - 18.0 g/dL) 15.6 Hct (42.0 - 52.0 %) 41.1 L Plt Count (142 - 424 K/mm3) 228 Disclaimer The following section includes nursing documentation that has been pulled in for pharmacy review. Patient's VTE score: 2 Patient's VTE Risk: VERY LOW RISK Clinical trial participant? No VTE prophylaxis NQF [id number] VTE prophylaxis ordered? Yes Type of prophylaxis/treatment: ERICA at 0715
[2017-06-30 08:00] VITALS: BP 160/94
[2017-06-30 08:42] LABS: HEMOGLOBIN 14.4 g/dL (14.1-18.0); LYMPH # 1.9 K/mm3 (0.7-4.5); LYMPH % 11.8 % (10-50)
--- NOTE | 2017-06-30 09:22 | HISTORY AND PHYSICAL REPORT ---
Demographics: Admit date: 06/30/17 Chief complaint: abd pain PRIMARY DIAGNOSIS: ACUTE PANCREATITIS Allergies: Coded Allergies: lisinopril (Mild, 01/28/17) Penicillins (09/21/16) History of present illness: History of present illness: 46 -year-old male presents to the ER with complaints of intractable abdominal pain, nausea and vomiting for 3 days. Patient had been seen the night before with the same complaints or symptoms were mild milder at the time and was discharged home. He has a history of pancreatitis, with occasional flareups. She has a history of diabetes controlled with metformin,renal cell carcinoma, status post RIGHT nephrectomy, currently with a relapse, per CT scan obtained with first visit to the ER, showing metastatic lesions in his abdomen. Patient midair for pain, control IV fluids, monitoring labs, and resting the gut. Past medical history: Family HX Diabetes Yes CAD No Hypertension Yes Hyperlipidemia Yes Cancer Yes TB No Immunization HX DT/Tetanus 1-4 Years Ago Flu 2015-FSN Pneumonia Received In Past TB Test in last year No General CAD? No Angina: No SC: No Hypertension? Yes Hyperlipidemia? Yes CHF? No DVT? No PE? No COPD? No Asthma? No Anemia? No GERD? No Gastric ulcers? No GI Bleed? No Hernia? Yes Thyroid Problems? No Hypothyroidism? No CVA? No Seizures? No Diabetes? Yes Insulin Dependent: No Insulin Pump: No Home FSBS? No Renal Insuffiency? No UTI? No Stones? No BPH? No GB Disease: Yes Nephritic Syndrome? No Asplenia? No Hepatitis? No Sickle Cell Disease? No Arthritis? No Migraines? No Cataracts? No Glaucoma? No MRSA? No HIV? No TB? No Anxiety? Yes Depression? Yes Cancer? Yes Site: RIGHT KIDNEY More? Yes Additional hx: PANCREATITIS, DIVERTICULITIS, HEART MURMUR, ENLARGED HEART, GOUT Past Surgical HX Previous Surgery?Y RIGHT NEPHRECTOMY Gallbladder VENTRAL HERNIA REPAIR Hemorrhoidectomy COLONOSCOPY Current home meds: Reported Medications Atenolol (Atenolol) 25 MG PO DAILY Cyclobenzaprine Hcl (Cyclobenzaprine Hydrochloride) 10 MG PO DAILY #30 TAB Fluticasone Propionate (Flonase 50 Mcg Nasal [place]) 1 SPR NA DAILY Metformin HCL (Metformin) 1,000 MG PO BID Allopurinol 100 MG PO DAILY OMEPRAZOLE MAGNESIUM (Prilosec 20MG) 20 MG PO DAILY Escitalopram Oxalate (Escitalopram 20MG) 20 MG PO DAILY Oxycodone 10 Mg\[id number] (Oxycodone-Acetaminophen 10-325) 1 TAB PO TID VARENICLINE TARTRATE (Chantix) 1 TAB PO BID Losartan Potassium (Losartan 50MG) 50 MG PO DAILY Gabapentin (Gabapentin 100MG) 100 MG PO TID Lancets (Onetouch Lancets) Pravastatin Sodium (Pravachol) 40 MG PO DAILY #30 Social Hx: Smoking HX Tobacco No Type Cigarettes Packs/day N/A Are you/the child exposed to second-hand smoke: No Alcohol Alcohol: No Hx of Drug Use Drug Use? No Review of systems: Constitutional No: no symptoms reported. Respiratory No: no symptoms reported. Cardiovascular No no symptoms reported Gastrointestinal/Abdominal see HPI, abdominal pain, nausea, poor appetite, poor fluid intake, vomiting Genitourinary No: no symptoms reported. Musculoskeletal No: no symptoms reported. Neurological No: see HPI. Exam: Lab data for last 24 hours: Laboratory Tests 06/30/17 0837: WBC 16.0 H, RBC 4.82, Hgb 14.4, Hct 40.2 L, MCV 83.3, RDW 15.0, Plt Count 204, MPV 7.6, Gran % 82.9 H, Gran # 13.2 H, Lymphocytes % 11.8, Monocytes % 3.5, Eosinophils % 1.5, Basophils % 0.3, Lymphocytes # 1.9, Monocytes # 0.6, Eosinophils # 0.2, Basophils # 0.1, PUBS MCHC 35.8 H, MCH 29.8 06/30/17 0730: POC Glucose 272 H 06/29/17 2110: POC Glucose 223 H 06/29/17 1711: POC Glucose 326 *H 06/29/17 1525: Sodium 118 L, Potassium 4.0, Chloride 85 L, Carbon Dioxide 24, BUN 11, Creatinine 0.6 L, Estimated Creat Clear 259 H, Estimated GFR (MDRD) 146, Glucose 372 H, Calcium 8.8, Total Bilirubin 0.7, AST 12 L, ALT 31.2, Alkaline Phosphatase 162 H, Total Protein 6.5, Albumin 2.9 L, Globulin 3.6 H, Albumin/ Globulin Ratio 0.8 L, Amylase 170 H, Lipase 1491 H, WBC 18.0 H, RBC 5.04, Hgb 15.6, Hct 41.1 L, MCV 81.6 L, RDW 14.9, Plt Count 228, MPV 7.8, Gran % 85.2 H, Gran # 15.3 H, Total Counted 100, Lymphocytes % 10.4, Monocytes % 3.0, Eosinophils % 1.1, Basophils % 0.3, Neutrophils 83 H, Band Neutrophils 1, Lymphocytes (Manual) 9 L, Lymphocytes # 1.9, Monocytes (Manual) 7, Monocytes # 0.5, Eosinophils # 0.2, Basophils # 0.1, Platelet Estimate NORMAL, PUBS MCHC 37.9 H, MCH 30.9 Admission vital signs: 1ST Vital Signs Result Date Time Pulse Ox 98 06/29 1515 B/P 182/100 06/29 151 Temp 98.5 06/29 151 Pulse 84 06/29 1515 Resp 16 06/29 151 O2 Delivery ROOM AIR 06/29 1715 O2 Flow Rate 2 06/30 0015 Exam General appearance: normal appearance, alert, active, no acute distress Eyes: normal exam ENT: normal exam Neck: normal inspection, full range of motion Cardiovascular: normal exam, regular rate & rhythm, normal peripheral pulses Respiratory: normal exam, clear to auscultation, good air movement, no respiratory distress ABD: normal exam, normal bowel sounds, tenderness Genitourinary: normal voiding & quantity Extremities: normal exam, moves all, warm Musculoskeletal: normal exam Skin: normal exam, intact, warm Neuro: normal exam, alert, intact, oriented Plan: Problem List 1. Acute pancreatitis 2. Abdominal pain 3. Tobacco use 4. 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 Rounded with Dr. Castro at 0922
[2017-06-30 09:25] VITALS: BP 160/94
[2017-06-30] MEDS ORDERED: METOPROLOL SUCC50 M1 PO (10:40)
[2017-06-30] MEDS ORDERED: WELLBUTRIN SR150 M1 PO (10:50)
--- NOTE | 2017-06-30 12:37 | RADIOLOGY REPORT PS360 ---
CT ABD PELVIS W/ CONTRAST CLINICAL INDICATION: ABD PAIN, ACUTE PANCREATITIS, history of renal cell cancer ORDERING PHYSICIAN: Cecil Castro MD PATIENT AGE: 46 years COMPARISON: 06/29/2017 TECHNIQUE: Axial images obtained with sagittal and coronal reformats. PROCEDURE: Oral Contrast: Redicat IV Contrast: 50 mL of Isovue-370. FINDINGS: Nodular densities once again noted in the right lung base consistent with metastatic foci. Atelectatic changes have developed in both lower lobes. There is diffuse fatty liver. No definite focal liver lesion evident. Enlarged right adrenal gland once again noted consistent with metastatic disease. Status post right nephrectomy. Small left renal cyst. There is increased stranding of the peripancreatic fat with pancreatitis. A small amount fluid is present anterior to the head of the pancreas and inferior to the duodenal bulb. There is stranding of the fat anterior to the transverse portion of the duodenum with thickening of the duodenum at this region which has developed in the interval. There is no evidence to suggest pancreatic microcysts or peripancreatic abscess. No localized pseudocysts are evident at this time. No intestinal obstruction or free air. Unremarkable appendix. No evidence of diverticulitis. Lytic lesions once again noted involving the left ilium IMPRESSION: 1. Worsening pancreatitis with increasing stranding of the peripancreatic fat as well as a small peripancreatic effusion inferior to the duodenal balled. Inflammatory changes with thickening involving the transverse portion of the duodenum having developed in the interval. 2. 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 3. Prior right nephrectomy
[2017-06-30 16:00] VITALS: BP 141/86
[2017-06-30 19:29] VITALS: BP 136/98
[2017-06-30 19:37] VITALS: BP 136/98
[2017-07-01 04:30] VITALS: BP 141/98
[2017-07-01 07:50] VITALS: BP 159/95
[2017-07-01 08:42] VITALS: BP 159/95
--- NOTE | 2017-07-01 08:49 | ACUTE CARE PROGRESS NOTE (QUA) ---
Progress Notes Subjective Date 07/01/17 Time 0847 Note abd pain Patient/family reports: feeling better Nursing reports: no complaints Objective Findings Last VS-Temp:98.5 B/P:159/95 Pulse:115 Resp:18 SaO2:95 ROOM AIR Last weight lbs:254 oz:6 K.384 Method:Floor Scales Exam General appearance: alert, awake Eyes: anicteric, PERRLA ENT: dry mucous membranes Neck: no JVD Cardiovascular: regular rate & rhythm Respiratory: clear to auscultation ABD: soft, tenderness Genitourinary: no hematuria Extremities: moves all Musculoskeletal: equal muscle strength Skin: dry Neuro: alert Reviewed: allergies, medications, vital signs, lab results, radiology report Assessment/Plan Problem List 1. Acute pancreatitis 2. Abdominal pain 3. Tobacco use 4. 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
[2017-07-01 15:47] VITALS: BP 149/94
[2017-07-01 19:40] VITALS: BP 150/89
[2017-07-01 20:21] VITALS: BP 150/89
[2017-07-02 04:15] VITALS: BP 164/101
[2017-07-02 07:25] LABS: LYMPH # 1.9 K/mm3 (0.7-4.5); LYMPH % 17.4 % (10-50)
[2017-07-02 08:06] LABS: HEMOGLOBIN 12.8 g/dL (14.1-18.0)
[2017-07-02 08:10] VITALS: BP 146/91
[2017-07-02 08:17] VITALS: BP 146/91
[2017-07-02] MEDS ORDERED: LIPITOR20 MG PO (08:31)
[2017-07-02] MEDS ORDERED: GEMFIBROZIL600 MG PO (08:31)
--- NOTE | 2017-07-02 08:34 | ACUTE CARE PROGRESS NOTE (QUA) ---
Progress Notes Subjective Date 07/02/17 Time 0831 Patient/family reports: feeling better Nursing reports: alert, no complaints Objective Findings Laboratory Tests 07/02/17 0640: WBC 10.7, RBC 4.34 L, Hgb 12.8 L, Hct 37.2 L, MCV 85.8, RDW 15.2, Plt Count 225, MPV 8.1, Gran % 75.1, Gran # 8.0, Lymphocytes % 17.4, Monocytes % 4.4, Eosinophils % 2.6, Basophils % 0.5, Lymphocytes # 1.9, Monocytes # 0.5, Eosinophils # 0.3, Basophils # 0.1, PUBS MCHC 34.1, MCH 29.3 07/02/17 0617: POC Glucose 191 H 07/01/17 2023: POC Glucose 185 H 07/01/17 1702: POC Glucose 194 H 07/01/17 1520: Triglycerides 3095 *H, Cholesterol 422 H, LDL Cholesterol TNP, VLDL Cholesterol TNP, HDL Cholesterol 13.0 L 07/01/17 1200: POC Glucose 255 H Vital Signs Date Time Temp Pulse Resp B/P Pulse O2 O2 Flow FiO2 Ox Delivery Rate 07/02 817 98.4 100 18 146/91 94 07/02 0810 98.4 100 18 146/91 94 ROOM AIR 07/02 0701 16 07/02 0415 98.2 99 18 164/101 97 ROOM AIR 07/02 0320 16 07/01 2315 18 07/01 2128 92 ROOM AIR 07/01 2021 97.6 99 16 150/89 96 ROOM AIR 07/01 1940 97.6 99 16 150/89 96 07/01 1926 22 07/01 1547 98.8 110 20 149/94 93 ROOM AIR 07/01 1507 22 07/01 1106 16 07/01 0842 98.5 115 18 159/95 95 Current Medications Sodium Chloride 1,000 ML .STK-MED ONE IV (DC) Hydromorphone HCl 0 .STK-MED ONE .ROUTE (DC) Insulin Human [rDNA origin] 0 .STK-MED ONE SC (DC) Hydromorphone HCl 0 .STK-MED ONE .ROUTE (DC) Hydromorphone HCl 0 .STK-MED ONE .ROUTE (DC) Insulin Human [rDNA origin] 0 .STK-MED ONE SC (DC) Hydromorphone HCl 0 .STK-MED ONE .ROUTE (DC) Insulin Human [rDNA origin] 0 .STK-MED ONE SC (DC) Insulin Human [rDNA origin] 0 .STK-MED ONE SC (DC) Hydromorphone HCl 0 .STK-MED ONE .ROUTE (DC) Insulin Human [rDNA origin] 0 .STK-MED ONE SC (DC) Hydromorphone HCl 0 .STK-MED ONE .ROUTE (DC) Sodium Chloride 1,000 ML .STK-MED ONE IV (DC) Hydromorphone HCl 1 MG Q4HP PRN IV Diagnostic Test (Pha) 1 EACH W/MEALS&HS FS Insulin Human [rDNA origin] SEE ADMIN CRITERIA FOR LOW INTENSITY SS W/MEALS&HS SC Influenza Virus Vaccine Quadrival 0.5 ML PRN PRN IM Ondansetron HCl 4 MG Q4HP PRN IV Sodium Chloride 1,000 ML .Q8H IV Sodium Chloride 10 ML PRN PRN IV Last VS-Temp:98.4 B/P:146/91 Pulse:100 Resp:18 SaO2:94 ROOM AIR Last weight lbs:254 oz:6 K.384 Method:Floor Scales Exam General appearance: normal appearance, alert, awake, no acute distress Eyes: normal exam ENT: normal exam Neck: normal inspection, no carotid bruit Cardiovascular: normal exam, regular rate & rhythm Respiratory: normal exam, clear to auscultation, good air movement, no respiratory distress ABD: normal exam, non-distended, normal bowel sounds, no rebound, soft, no tenderness Genitourinary: normal voiding & quantity Extremities: normal exam, moves all, warm Musculoskeletal: normal exam Skin: normal exam, intact, warm Neuro: normal exam, alert, intact, oriented Reviewed: allergies, medications, vital signs, lab results, radiology report, consult note Assessment/Plan Problem List 1. Acute pancreatitis Qualifiers: Pancreatitis type: unspecified pancreatitis type Acute pancreatitis complication: unspecified Qualified Code: K85.90 - Acute pancreatitis without necrosis or infection, unspecified 2. Abdominal pain 3. Tobacco use 4. 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
--- NOTE | 2017-07-02 08:37 | DISCHARGE SUMMARY STANDARD ---
Demographics Admit date: 06/30/17 Discharge date: 07/02/17 History of present illness History of present illness 46 -year-old male presents to the ER with complaints of intractable abdominal pain, nausea and vomiting for 3 days. Patient had been seen the night before with the same complaints or symptoms were mild milder at the time and was discharged home. He has a history of pancreatitis, with occasional flareups. She has a history of diabetes controlled with metformin,renal cell carcinoma, status post RIGHT nephrectomy, currently with a relapse, per CT scan obtained with first visit to the ER, showing metastatic lesions in his abdomen. Patient midair for pain, control IV fluids, monitoring labs, and resting the gut. Hospital Course Hospital Course: ct abd pelvis-IMPRESSION: 1. Worsening pancreatitis with increasing stranding of the peripancreatic fat as well as a small peripancreatic effusion inferior to the duodenal balled. Inflammatory changes with thickening involving the transverse portion of the duodenum having developed in the interval. 2. 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 3. Prior right nephrectomy today pt states he feels much better and request to be dc home. pt states pain improved and abd not tender. Discharge diagnoses Problem List 1. Acute pancreatitis 2. Abdominal pain 3. Tobacco use 4. 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 Follow up Follow up in office in: 4 WEEKS with: Rich PIEDRA,Cecil Randle Comment: rounded with rich at 0830
[2017-07-02 10:06] VITALS: BP 146/91
== END 2017-07-02 10:20 | disposition home or self-care (01) | DRG 439 ==
LOC: ER 15:09 → 2ND 16:04 → ER 16:04 → 2ND 16:08
PROVIDERS: Emergency Medicine
DX: K85.90 Acute pancreatitis without necrosis or infection, unspecified (principal); C64.2 Malignant neoplasm of left kidney, except renal pelvis; C79.89 Secondary malignant neoplasm of other specified sites; I10 Essential (primary) hypertension; Z72.0 Tobacco use; E11.9 Type 2 diabetes mellitus without complications
CPT/HCPCS: J2405; Q9967

== ENCOUNTER → 2017-08-28 | Outpatient (CLI) | payer MEDICARE ==
[~2017-08-28] MED LIST changes: +LIPITOR20 MG PO; +METOPROLOL SUCC50 M1 PO; +WELLBUTRIN SR150 M1 PO
[2017-08-28 19:13] LABS: AMPHETAMINES/METAMPHETAMINES NEGATIVE ng/mL (<1000)
[2017-09-09 14:36] LABS: Opiates Negative (Cutoff=100)
== END ==
LOC: LAB 17:34
PROVIDERS: Emergency Medicine
DX: Z79.899 Other long term (current) drug therapy (principal)

== ENCOUNTER → 2017-08-31 | Outpatient (CLI) | payer MEDICARE, MEDICAID ==
--- NOTE | 2017-08-31 21:07 | RADIOLOGY REPORT PS360 ---
HIP LT 2-3V W/PELVIS IF PERFOR Ordering Physician: Cecil Castro MD Patient Age: 46 years: Male HISTORY: LEFT HIP PAIN pop and pain at left hip. HISTORY of adrenal cancer spread to the pelvis. TECHNIQUE: AP and frog-leg view of the left hip along with AP pelvis COMPARISON : CT of pelvis from June 2017 FINDINGS Osseous pelvis appears intact hip joint spaces well-maintained. The femoral head and neck are intact. The iliac bone and sacrum are intact. Pubis and superior, inferior ramus. . No fracture evident AP and frog-leg views of the left hip reveal no fracture. Hip joint space well maintained. The minor ridging superior acetabulum noted. Unimpressive may could reflect some very minor early degenerative features but unimpressive IMPRESSION: ----- Left hip intact. Osseous pelvis intact. Scant ridging at superior acetabulum may reflect some early degenerative features at both hips. Unimpressive. Additional note. The 06/29/2017 CT abdomen/pelvis study shows a left iliac lesion. This lesion difficult to visualize on plain but I believe vaguely evident today, vague ovoid lucency measuring 3.7 cm left iliac bone. (Overlying gas bubble within bowel could mimic this appearance.)... If so this lesion clearly larger than it was on previous CT from June and warrants follow-up. Recommend follow-up CT pelvis; & possibly follow-up bone scan to further evaluate this osseous lesion & extent of osseous metastatic disease Amanda: Please fax to Dr. Castro and patient's oncologist if listed
== END ==
LOC: RAD 14:12
DX: M25.552 Pain in left hip (principal); Z79.899 Other long term (current) drug therapy